=== PATIENT | male | born 1945 | race American Indian/Alaskan Native ===

== ENCOUNTER 2017-05-01 12:17 | Outpatient (CLI) | payer MEDICARE ==
--- NOTE | 2017-05-01 13:11 | Cat Scan Report ---
CT HEAD WITHOUT CONTRAST: HISTORY: Fall with head trauma. TECHNIQUE: Sequential 2.5mm CT images. COMPARISON: none. FINDINGS: Cerebral Parenchyma: Within normal limits. Cerebellum: Within normal limits. Brainstem: Within normal limits. Ventricles: Normal. Sella: Normal. Extra-axial spaces: Normal. Basal Cisterns: Normal. Intracranial Hemorrhage: None. Midline Shift: None. Calvarium: Normal. Sinuses: Normal. Mastoid Air Cells: Normal. Visualized Orbits: Normal. IMPRESSION: No acute intracranial process is identified.
== END 2017-05-01 12:18 | disposition home or self-care (01) ==
LOC: CT 12:17
PROVIDERS: ATTEND Internal Medicine Nephrology
DX: S09.90XA Unspecified injury of head, initial encounter (principal); E11.9 Type 2 diabetes mellitus without complications; I10 Essential (primary) hypertension; W19.XXXA Unspecified fall, initial encounter; Y93.89 Activity, other specified; Y92.89 Other specified places as the place of occurrence of the external cause; Y99.8 Other external cause status
CPT/HCPCS: 70450

== ENCOUNTER 2017-05-16 15:59 | Inpatient (IN) | payer MEDICARE ==
--- NOTE | 2017-05-16 19:12 | Emergency Department Report ---
Chief Complaint: Upper Respiratory Infection Stated Complaint: COLD SYMPTOMS Time Seen by Provider: 05/16/17 19:07 - HPI History of Present Illness: States he has had a cough, congestion for 3 weeks. Dialysis patient for 11 years , also a diabetic, has had fluids in his lungs in the past when asked. +Sick contacts at dialysis. Admits to subjective fever over the past three weeks. He doesn't know what medicine he was put on last week by his PMD, thinks it might have been tamiflu.Admits to vomiting as well sometimes when he coughs. Also admits to diarrhea for 3 - 4 days. Says that he has chest pain like someone is walking on it. Abdominal pain feels like it is sore. - ROS Review of Systems: As stated in HPI. - Exam Vital Signs: Vital Signs 05/16/17 16:20 Temperature 98.5 F Pulse Rate 84 Respiratory 20 Rate Blood Pressure 129/81 Blood Pressure 129/81 [Right] O2 Sat by Pulse 91 Oximetry Physical Exam: Mild distress, NCAT PERRL crackles in the bases, +systolic murmur, generalized abd tenderness +BS. MSE screening note: Focused history and physical exam performed. Due to findings the following was ordered: diabetic dialysis patient with productive cough for three weeks with crackles in the bases bilaterally and NVD. Will get CBC CMP UA CXR EKG TROP LACTIC ED Disposition for MSE Condition: Stable
[2017-05-16] MEDS ORDERED: ZOFRAN IV ONE (19:22)
[2017-05-16 20:10] LABS: Creatine Kinase MB 1.8 ng/mL (0.0-4.0)
--- NOTE | 2017-05-16 20:10 | XRay Report ---
FINAL REPORT PROCEDURE: Semi upright portable AP chest x-ray TECHNIQUE: Chest radiograph anteroposterior view. CPT 93372 HISTORY: Cough COMPARISON: No prior studies are available for comparison. FINDINGS: The heart is magnified although appears to be enlarged. Coronary artery stent appears to be visualized. Pulmonary vasculature not significantly distended. Small right pleural effusion is present with adjacent increased density in the right lower lung field suggesting atelectasis versus infiltrate. Lung haro otherwise are clear. No acute bony abnormalities are seen. IMPRESSION: Cardiomegaly. Coronary artery stent is visualized. Small right effusion with adjacent patchy alveolar density seen suggesting atelectasis or infiltrate. Clinical correlation recommended. No other abnormalities are identified..
[2017-05-16 20:11] LABS: Albumin 4.5 g/dL (3.9-5); Calcium 10.2 mg/dL (8.4-10.2); Magnesium 2.7 mg/dL (1.7-2.3)
[2017-05-16 20:24] LABS: Hematocrit 37.4 % (35.5-45.6); Hemoglobin 12.2 gm/dl (11.8-15.2); Mean Corpuscular HGB Conc 33 % (32-34); Mean Corpuscular Hemoglobin 30 pg (28-32); Mean Corpuscular Volume 91 fl (84-94); Red Blood Count 4.13 M/mm3 (3.65-5.03)
[2017-05-16 20:43] LABS: Chol/HDL Ratio 1.88 %
[2017-05-16] MEDS ORDERED: PROVENTIL IH ONE ×2 (20:53→23:57)
[2017-05-16 20:57] LABS: Platelet Count 85 K/mm3 (140-440)
[2017-05-16] MEDS ORDERED: SUBLIMAZE IV ONE (20:58)
[2017-05-16] MEDS ORDERED: LEVAQUIN 500MG/100ML 500 MG/100 ML BAG IV ONE (20:58)
[2017-05-16] MEDS ORDERED: TESSALON PERLES PO ONE (20:59)
[2017-05-16] MEDS ORDERED: BABY ASPIRIN PO ONE (21:06)
--- NOTE | 2017-05-16 21:06 | Emergency Department Report ---
HPI - General Chief Complaint: Upper Respiratory Infection Time Seen by Provider: 05/16/17 19:07 - HPI HPI: The patient is a 71-year-old male with a significant history of end-stage renal disease, who presents for evaluation of chest pain and cough. He reports to 3 weeks of a cough productive of yellow and green sputum, and associated with chest pain for the past 4-5 days, on-and-off, midsternal and pressure-like in quality, currently 5/10 in severity, exacerbated with coughing. He shares that he missed dialysis today due to presenting to the emergency department for evaluation. He also reports experiencing waxing and waning fevers and generalized myalgias for the past week. The patient denies trauma to the chest , current dyspnea, syncope, hemoptysis, unilateral leg swelling, recent immobilization, history of DVT or PE, recent cancer. ED Past Medical Hx - Past Medical History Hx Hypertension: Yes Hx Heart Attack/AMI: Yes (2000, 2005) Hx Renal Disease: Yes (dialysis MWF) - Surgical History Hx Coronary Stent: Yes - Social History Smoking Status: Never Smoker Substance Use Type: None - Medications Home Medications: Home Medications Medication Instructions Recorded Confirmed Last Taken Type Ambrisentan [Letairis] 5 mg PO DAILY 02/10/13 01/10/14 01/09/14 17:00 History 5mg FLUoxetine HCL [Prozac] 40 mg PO QDAY 02/10/13 01/10/14 01/09/14 06:00 History 40mg Furosemide [Lasix] 80 mg PO QDAY 02/10/13 01/10/14 01/09/14 06:00 History 80mg Gabapentin 300 mg PO BID 02/10/13 01/10/14 01/10/14 06:00 History 300mg Isosorbide Dinitrate [Isosorbide 30 mg PO DAILY 02/10/13 01/10/14 01/09/14 06: 00 History Dinitrate] 30mg Lisinopril/Hydrochlorothiazide 1 tab PO QDAY 02/10/13 01/10/14 01/10/14 05:30 History [Zestoretic 20-25 mg] 1 NIFEdipine [Nifedipine ER] 60 mg PO DAILY 02/10/13 01/10/14 01/09/14 17:00 History 60mg cloNIDine [Catapres] 0.1 mg PO BID 02/10/13 01/10/14 01/09/14 08:00 History 0.1mg ED Review of Systems ROS: Stated complaint: COLD SYMPTOMS Other details as noted in HPI Constitutional: denies: fever ENT: denies: throat or neck pain Respiratory: reports cough, shortness of breath Cardiovascular: denies: chest pain Endocrine: denies unexplained weight loss or gain Gastrointestinal: denies: abdominal pain, nausea Genitourinary: denies: dysuria Musculoskeletal: denies: leg swelling Skin: denies: rash Neurological: denies: headache Hematological/Lymphatic: denies: easy bleeding or easy bruising Psych: denies sadness or hopelessness Physical Exam - Physical Exam Vital Signs: Vital Signs 05/16/17 16:20 Temperature 98.5 F Pulse Rate 84 Respiratory 20 Rate Blood Pressure 129/81 Blood Pressure 129/81 [Right] O2 Sat by Pulse 91 Oximetry Physical Exam: General: well-nourished, well-developed, no acute distress Head: Normocephalic, atraumatic Eyes: normal sclera ENT: Mucous membranes are pink and moist , bilateral nasal congestion present Neck: trachea midline, neck supple, No neck stiffness, no cervical adenopathy Respiratory: Diminished breath sounds and wheezing present throughout lung haro bilaterally, mild rhonchi present to right lower lung field Cardio: S1 and S2 present, no murmurs, rubs, gallops, capillary refill is brisk Abdomen: Normoactive bowel sounds, soft abdomen, no rigidity, no guarding or rebound tenderness Chest WALL/Back: No tenderness to palpation of the chest wall, no CVA tenderness with percussion Musc: No pitting edema Skin: No rash Neuro: no facial drooping, normal speech Psych: Normal affect ED Course Vital Signs 05/16/17 16:20 Temperature 98.5 F Pulse Rate 84 Respiratory 20 Rate Blood Pressure 129/81 Blood Pressure 129/81 [Right] O2 Sat by Pulse 91 Oximetry ED Medical Decision Making - Lab Data Result diagrams: 05/16/17 19:26 05/16/17 19:26 - Medical Decision Making The patient was seen and examined by myself. The patient is placed on a youth nutritional monitor and continuous pulse ox. On initial evaluation, the patient was found to be in no distress. Evaluation orders were placed. The patient is given pain medicine for his chest pain. EKG was negative for ST elevation or depression suggestive of acute cardiac infarct. Is given an albuterol breathing treatment for treatment of his wheezing and hyperkalemia. X-ray of the chest exhibits a right lower lobe infiltrate and adjacent pleural effusion concerning for pneumonia. IV Levaquin is ordered for treatment of potential pneumonia. Lab results is a mildly elevated troponin of 0.107, elevated creatinine of 8.5, elevated potassium of 5.2, consistent with known history of end-stage renal disease. As the patient is elderly with multiple comorbidities , he will be admitted for treatment of his pneumonia, for arrangement for dialysis for definitive treatment of his hyperkalemia, and for serial cardiac enzymes and evaluation by cardiology. The on-call hospitalist service was contacted. They agreed to admit the patient for further treatment and close monitoring. The ED admit order was placed. The patient was admitted in guarded condition. Critical care attestation.: If time is entered above; I have spent that time in minutes in the direct care of this critically ill patient, excluding procedure time. ED Disposition Clinical Impression: Acute hyperkalemia, ESRD (end stage renal disease) on dialysis, Acute chest pain Pneumonia Qualifiers: Pneumonia type: due to unspecified organism Laterality: right Lung location: lower lobe of lung Qualified Code(s): J18.1 - Lobar pneumonia, unspecified organism Disposition: 09 OP ADMIT IP TO THIS HOSP Is pt being admited?: Yes Does the pt Need Aspirin: Yes Condition: Serious Instructions: Chest Pain (ED), Bacterial Pneumonia (ED) Referrals: PATRICIA ANGUIANO MD [Primary Care Provider] - 3-5 Days Time of Disposition: 20:46
[2017-05-16] MEDS ORDERED: DULCOLAX PR PRN (22:34)
[2017-05-16] MEDS ORDERED: ZOFRAN IV PRN (22:34)
[2017-05-16] MEDS ORDERED: TYLENOL PO PRN (22:34)
[2017-05-16] MEDS ORDERED: PERCOCET 5/325 PO PRN (22:34)
--- NOTE | 2017-05-16 22:45 | History and Physical Report ---
History of Present Illness Date of examination: 05/16/17 History of present illness: [id number] with a history of hypertension,ESRD, coronary artery disease comes emergency room with complaints of chest pain located in the epigastric area, intermittent in nature, described as sharp, 35 minutes, intensity 5/10, no radiation E Calos identified exacerbating or relieving factors. He admits to nausea vomiting, shortness of breath, diaphoresis. hE had a stress test 6month ago which she states was okay Review Of Systems: Constitutional: no weight loss Ears, eyes, nose, mouth and throat: no nasal congestion, no nasal discharge, no sinus pressure, blurry vision, diplopia Neck: No neck pain or rigidity. Cardiovascular: No palpitations Respiratory: No shortness of breath, cough Gastrointestinal: No abdominal pain, hematochezia Genitourinary : no dysuria, frequency , hematuria Musculoskeletal: no muscle ache Integumentary: no rash, no pruritis Neurological: no parathesias, focal weakness Endocrine: no cold or heat intolerance, no polyuria or polydipsia Hematologic/Lymphatic: no easy bruising, no easy bleeding, no gland swelling Allergic/Immunologic: no urticaria, no angioedema. PAST MEDICAL HISTORY:hypertension, esrd, coronary artery disease PAST SURGICAL HISTORY: Left BKA, AV fistula FAMILY HISTORY: Hypertension SOCIAL HISTORY: Denies alcohol, tobacco, drugs Medications and Allergies Allergies Allergy/AdvReac Type Severity Reaction Status Date / Time No Known Allergies Allergy Verified 01/10/14 06:37 Home Medications Medication Instructions Recorded Confirmed Last Taken Type Ambrisentan [Letairis] 5 mg PO DAILY 02/10/13 01/10/14 01/09/14 17:00 History 5mg FLUoxetine HCL [Prozac] 40 mg PO QDAY 02/10/13 01/10/14 01/09/14 06:00 History 40mg Furosemide [Lasix] 80 mg PO QDAY 02/10/13 01/10/14 01/09/14 06:00 History 80mg Gabapentin 300 mg PO BID 02/10/13 01/10/14 01/10/14 06:00 History 300mg Isosorbide Dinitrate [Isosorbide 30 mg PO DAILY 02/10/13 01/10/14 01/09/14 06: 00 History Dinitrate] 30mg Lisinopril/Hydrochlorothiazide 1 tab PO QDAY 02/10/13 01/10/14 01/10/14 05:30 History [Zestoretic 20-25 mg] 1 NIFEdipine [Nifedipine ER] 60 mg PO DAILY 02/10/13 01/10/14 01/09/14 17:00 History 60mg cloNIDine [Catapres] 0.1 mg PO BID 02/10/13 01/10/14 01/09/14 08:00 History 0.1mg Active Meds: Active Medications Acetaminophen (Tylenol) 650 mg PO Q4H PRN PRN Reason: Pain MILD(1-3)/Fever >100.5/GARCIA Bisacodyl (Dulcolax) 10 mg [place] QDAY PRN PRN Reason: Constipation unrelieved by MOM Ondansetron HCl (Zofran) 4 mg IV Q8H PRN PRN Reason: N/V unrelieved by Reglan Oxycodone/Acetaminophen (Percocet 5/325) 1 tab PO Q6H PRN PRN Reason: Pain, Moderate (4-6) Exam - Physical Exam Narrative exam: Gen. appearance: Patient lying in bed in no acute distress HEENT: Normocephalic/atraumatic, pupils equal round reactive to light, extra occular movement intact, no scleral icterus, no JVD or thyromegaly or nodule, neck is supple, mucous membrane moist, no erythema or exudate Heart: S1-S2, regular rate and rhythm Lungs: Clear to auscultation bilateral breathing comfortable Abdomen: Positive bowel sounds, nontender, nondistended, no organomegaly Extremities: Left BKA, no edema, cyanosis, clubbing Neuro:: Oriented 3 , cranial nerves II-12 intact, speech, motor intact Skin: No rash, nodules, warm dry - Constitutional Vitals: Temp Pulse Resp BP Pulse Ox 98.5 F 81 22 162/74 91 05/16/17 16:20 05/16/17 21:30 05/16/17 21:43 05/16/17 21:30 05/16/17 16:20 Results - Labs CBC & Chem 7: 05/16/17 19:26 05/16/17 19:26 Labs: Abnormal lab results 05/16/17 05/16/17 Range/Units 19:26 19:26 RDW 21.0 H (13.2-15.2) % Plt Count 85 L (140-440) K/mm3 Potassium 5.2 H (3.6-5.0) mmol/L Chloride 92.2 L (98-107) mmol/L BUN 38 H (9-20) mg/dL Creatinine 8.5 H (0.8-1.5) mg/dL Magnesium 2.70 H (1.7-2.3) mg/dL Alkaline Phosphatase 183 H (35-129) units/L Troponin T 0.106 H* (0.00-0.029) ng/mL Total Protein 8.7 H (6.3-8.2) g/dL HDL Cholesterol 89 H (40-59) mg/dL Lipase 12 L (13-60) units/L - Imaging and Cardiology EKG: image reviewed Chest x-ray: image reviewed Assessment and Plan Assessment Unstable angina Coronary artery disease End-stage renal disease on dialysis Hyperkalemia Possible pneumonia Thrombocytopenia Plan Admit to medicine Check cardiac enzymes, consult cardiology Consult renal for dialysis, give Kayexalate DVT prophylaxis, start Levaquin
[2017-05-17] MEDS ORDERED: APRESOLINE IV PRN (01:14)
[2017-05-17 02:02] LABS: Creatine Kinase MB 1.9 ng/mL (0.0-4.0)
[2017-05-17 05:02] LABS: Basophils % (Auto) 0.5 % (0.0-1.8); Eosinophils % (Auto) 0.5 % (0.0-4.3); Hematocrit 32.6 % (35.5-45.6); Hemoglobin 10.9 gm/dl (11.8-15.2); Lymphocytes # (Auto) 0.7 K/mm3 (1.2-5.4); Lymphocytes % (Auto) 15.1 % (13.4-35.0); Mean Corpuscular HGB Conc 33 % (32-34); Mean Corpuscular Hemoglobin 30 pg (28-32); Mean Corpuscular Volume 91 fl (84-94); Monocytes # (Auto) 0.7 K/mm3 (0.0-0.8); Monocytes % (Auto) 14.9 % (0.0-7.3); Platelet Count 78 K/mm3 (140-440); Red Blood Count 3.59 M/mm3 (3.65-5.03); Red Cell Distribution Width 21.5 % (13.2-15.2)
[2017-05-17 05:38] LABS: Calcium 9.9 mg/dL (8.4-10.2)
[2017-05-17 08:08] LABS: Creatine Kinase MB 2.5 ng/mL (0.0-4.0)
[2017-05-17] MEDS ORDERED: LEVAQUIN 250MG/50ML 250 MG/50 ML BAG IV SCH (10:00)
[2017-05-17] MEDS ORDERED: LEVAQUIN 500MG/100ML 500 MG/100 ML BAG IV SCH (10:00)
[2017-05-17] MEDS ORDERED: AMBRISENTAN 5 MG PO SCH (10:00)
--- NOTE | 2017-05-17 10:04 | Progress Note ---
Assessment and Plan Assessment and plan: 36-[id number]-sbboko with a history of hypertension,ESRD, coronary artery disease comes emergency room with complaints of chest pain and productive cough R lung pneumonia, likely due to gram positive continue abx Chest pain cardiology input appreciated, likely type 2 TN -etiology is likely pna, will continue abx, for stress test in am Coronary artery disease continue med management, on asa and statin End-stage renal disease on dialysis received kayexalate, continue HD per renal Hyperkalemia should correct with HD, fup repeat levels Thrombocytopenia chronic and stable, outpatient hematology fup History Interval history: no cp, admits to productive cough no sob, admits fatigue, no vomiting, no fevers, no focal weakness Hospitalist Physical - Constitutional Vitals: Temp Pulse Resp BP Pulse Ox 97.8 F 78 19 157/69 100 05/17/17 08:25 05/17/17 09:31 05/17/17 09:31 05/17/17 09:31 05/17/17 09:15 General appearance: Present: no acute distress - EENT Eyes: Present: PERRL ENT: hearing intact - Neck Neck: Present: supple - Respiratory Respiratory effort: normal Respiratory: right: rhonchi - Cardiovascular Rhythm: regular Heart Sounds: Present: S1 & S2 - Extremities Extremity abnormal: other (sp L BKA) - Abdominal General gastrointestinal: soft, non-tender - Integumentary Integumentary: Present: clear, warm - Psychiatric Psychiatric: appropriate mood/affect, intact judgment & insight - Neurologic Neurologic: CNII-XII intact, moves all extremities Results - Labs CBC & Chem 7: 05/17/17 04:33 05/17/17 04:33 Labs: Laboratory Last Values WBC 4.6 K/mm3 (4.5-11.0) 05/17/17 04:33 RBC 3.59 M/mm3 (3.65-5.03) L 05/17/17 04:33 Hgb 10.9 gm/dl (11.8-15.2) L 05/17/17 04:33 Hct 32.6 % (35.5-45.6) L 05/17/17 04:33 MCV 91 fl (84-94) 05/17/17 04:33 MCH 30 pg (28-32) 05/17/17 04:33 MCHC 33 % (32-34) 05/17/17 04:33 RDW 21.5 % (13.2-15.2) H 05/17/17 04:33 Plt Count 78 K/mm3 (140-440) L 05/17/17 04:33 Lymph % (Auto) 15.1 % (13.4-35.0) 05/17/17 04:33 [place] % (Auto) 14.9 % (0.0-7.3) H 05/17/17 04:33 Eos % (Auto) 0.5 % (0.0-4.3) 05/17/17 04:33 Baso % (Auto) 0.5 % (0.0-1.8) 05/17/17 04:33 Lymph # 0.7 K/mm3 (1.2-5.4) L 05/17/17 04:33 [place] # 0.7 K/mm3 (0.0-0.8) 05/17/17 04:33 Eos # 0.0 K/mm3 (0.0-0.4) 05/17/17 04:33 Baso # 0.0 K/mm3 (0.0-0.1) 05/17/17 04:33 Seg Neutrophils % 69.0 % (40.0-70.0) 05/17/17 04:33 Seg Neutrophils # 3.2 K/mm3 (1.8-7.7) 05/17/17 04:33 Sodium 141 mmol/L (137-145) 05/17/17 04:33 Potassium 4.5 mmol/L (3.6-5.0) 05/17/17 04:33 Chloride 94.7 mmol/L (98-107) L 05/17/17 04:33 Carbon Dioxide 29 mmol/L (22-30) 05/17/17 04:33 Anion Gap 22 mmol/L 05/17/17 04:33 BUN 42 mg/dL (9-20) H 05/17/17 04:33 Creatinine 8.7 mg/dL (0.8-1.5) H 05/17/17 04:33 Estimated GFR 7 ml/min 05/17/17 04:33 BUN/Creatinine Ratio 5 % 05/17/17 04:33 Glucose 59 mg/dL (75-100) L 05/17/17 04:33 Lactic Acid 1.50 mmol/L (0.7-2.0) 05/16/17 19:26 Calcium 9.9 mg/dL (8.4-10.2) 05/17/17 04:33 Phosphorus 3.10 mg/dL (2.5-4.5) 05/16/17 19:26 Magnesium 2.70 mg/dL (1.7-2.3) H 05/16/17 19:26 Total Bilirubin 0.70 mg/dL (0.1-1.2) 05/16/17 19:26 AST 33 units/L (5-40) 05/16/17 19:26 ALT 24 units/L (7-56) 05/16/17 19:26 Alkaline Phosphatase 183 units/L (35-129) H 05/16/17 19:26 Total Creatine Kinase 149 units/L (55-170) 05/17/17 07:14 CK-MB (CK-2) 2.5 ng/mL (0.0-4.0) 05/17/17 07:14 CK-MB (CK-2) Rel Index 1.6 (0-4) 05/17/17 07:14 Troponin T 0.147 ng/mL (0.00-0.029) H* 05/17/17 07:14 Total Protein 8.7 g/dL (6.3-8.2) H 05/16/17 19:26 Albumin 4.5 g/dL (3.9-5) 05/16/17 19:26 Albumin/Globulin Ratio 1.1 % 05/16/17 19:26 Triglycerides 46 mg/dL (2-149) 05/16/17 19:26 Cholesterol 168 mg/dL (50-199) 05/16/17 19:26 LDL Cholesterol Direct 70 mg/dL (50-130) 05/16/17 19:26 HDL Cholesterol 89 mg/dL (40-59) H 05/16/17 19:26 Cholesterol/HDL Ratio 1.88 % 05/16/17 19:26 Lipase 12 units/L (13-60) L 05/16/17 19:26 Influenza A (Rapid) Negative (Negative) 05/16/17 Unknown Influenza B (Rapid) Negative (Negative) 05/16/17 Unknown - Imaging and Cardiology Chest x-ray: image reviewed (R patchy infiltrate with small effusion)
[2017-05-17] MEDS: CATAPRES PO SCH ×2 (10:57→23:26)
[2017-05-17] MEDS: NEURONTIN PO SCH ×2 (10:57→23:27)
[2017-05-17] MEDS: PROzac PO SCH (10:57)
--- NOTE | 2017-05-17 11:01 | Consultation ---
History of Present Illness Consult date: 05/17/17 Requesting physician: SKYLER AVINA Consult reason: chest pain, elevated troponin History of present illness: This is a 71-year-old gentleman who follows with [facility] in [place] has known history of coronary disease with PCI in 2000 2006 peripheral vascular disease in 2014 had left BKA has hypertension diabetes cholesterol end- stage renal disease on hemodialysis medicationlookslikehehaspulmonaryhypertensionpatientstatesbeenhavingcoughingandc oldandfeverforlastseveralweeksbeingtreatedforsuspectedpneumonia. Patientcameinbecauseofchestpainworsewithdeepinspirationhassomemildnauseanovomiti ngshortnessofbreathpresentpatienthasnodiarrheanomelenanosyncope nopalpitations Past History Past Medical History: CAD (2000 and 2005), diabetes, ESRD, hypertension, hyperlipidemia, other Past Surgical History: Other (AV graft and left below-knee amputation) Social history: denies: no significant social history Medications and Allergies Allergies Allergy/AdvReac Type Severity Reaction Status Date / Time No Known Allergies Allergy Verified 01/10/14 06:37 Home Medications Medication Instructions Recorded Confirmed Last Taken Type Ambrisentan [Letairis] 5 mg PO DAILY 02/10/13 01/10/14 01/09/14 17:00 History 5mg FLUoxetine HCL [Prozac] 40 mg PO QDAY 02/10/13 01/10/14 01/09/14 06:00 History 40mg Furosemide [Lasix] 80 mg PO QDAY 02/10/13 01/10/14 01/09/14 06:00 History 80mg Gabapentin 300 mg PO BID 02/10/13 01/10/14 01/10/14 06:00 History 300mg Isosorbide Dinitrate [Isosorbide 30 mg PO DAILY 02/10/13 01/10/14 01/09/14 06: 00 History Dinitrate] 30mg Lisinopril/Hydrochlorothiazide 1 tab PO QDAY 02/10/13 01/10/14 01/10/14 05:30 History [Zestoretic 20-25 mg] 1 NIFEdipine [Nifedipine ER] 60 mg PO DAILY 02/10/13 01/10/14 01/09/14 17:00 History 60mg cloNIDine [Catapres] 0.1 mg PO BID 02/10/13 01/10/14 01/09/14 08:00 History 0.1mg Active Meds: Active Medications Acetaminophen (Tylenol) 650 mg PO Q4H PRN PRN Reason: Pain MILD(1-3)/Fever >100.5/GARCIA Bisacodyl (Dulcolax) 10 mg [place] QDAY PRN PRN Reason: Constipation unrelieved by MOM Clonidine HCl (Catapres) 0.1 mg PO BID ROBB Fluoxetine HCl (Prozac) 40 mg PO QDAY ROBB Furosemide (Lasix) 80 mg PO QDAY ROBB Gabapentin (Neurontin) 300 mg PO BID ROBB Hydralazine HCl (Apresoline) 5 mg IV Q6H PRN PRN Reason: Hypertension Levofloxacin/Dextrose (Levaquin 500mg/100ml) 500 mg in 100 mls @ 100 mls/hr IV Q48H ROBB PRN Reason: Protocol Isosorbide Dinitrate (Isordil Titradose) 30 mg PO DAILY ROBB Miscellaneous Medication (Ambrisentan [Letairis]) 5 mg PO DAILY ROBB Nifedipine (Procardia Xl) 60 mg PO QDAY ROBB Ondansetron HCl (Zofran) 4 mg IV Q8H PRN PRN Reason: N/V unrelieved by Reglan Oxycodone/Acetaminophen (Percocet 5/325) 1 tab PO Q6H PRN PRN Reason: Pain, Moderate (4-6) Review of Systems All systems: negative (hpi) Physical Examination Vital Signs Temp Pulse Resp BP Pulse Ox 98.5 F 84 20 129/81 91 05/16/17 16:20 05/16/17 16:20 05/16/17 16:20 05/16/17 16:20 05/16/17 16:20 General appearance: no acute distress, well-nourished HEENT: Positive: PERRL, Mucus Membranes Moist Neck: Positive: neck supple, trachea midline Cardiac: Positive: Reg Rate and Rhythm, S1/S2, Audible Murmur Lungs: Positive: clear to auscultation, Normal Breath Sounds Neuro: Positive: Grossly Intact Abdomen: Positive: Soft, Active Bowel Sounds. Negative: Tender, Distended Male genitourinary: Positive: normal Skin: Positive: Clear Incision: Cardiac Cath Site Musculoskeletal: No Pain, Normal Range of Motion Extremities: Present: Other (left BKA). Absent: edema Results 05/17/17 04:33 05/17/17 04:33 Cardiac Enzymes 05/16/17 05/17/17 05/17/17 Range/Units 19:26 01:27 07:14 AST 33 (5-40) units/L CK-MB (CK-2) 1.8 1.9 2.5 (0.0-4.0) ng/mL Lipids 05/16/17 Range/Units 19:26 Triglycerides 46 (2-149) mg/dL Cholesterol 168 (50-199) mg/dL HDL Cholesterol 89 H (40-59) mg/dL Cholesterol/HDL Ratio 1.88 % CBC 05/16/17 05/17/17 Range/Units 19:26 04:33 WBC 5.7 4.6 (4.5-11.0) K/mm3 RBC 4.13 3.59 L (3.65-5.03) M/mm3 Hgb 12.2 10.9 L (11.8-15.2) gm/dl Hct 37.4 32.6 L (35.5-45.6) % Plt Count 85 L 78 L (140-440) K/mm3 Lymph # [place] 0.7 L [place] # Cork Grinder 0.7 Eos # Cork Grinder 0.0 Baso # Cork Grinder 0.0 Comprehensive Metabolic Panel 05/16/17 05/17/17 Range/Units 19:26 04:33 Sodium 137 141 (137-145) mmol/L Potassium 5.2 H 4.5 (3.6-5.0) mmol/L Chloride 92.2 L 94.7 L (98-107) mmol/L Carbon Dioxide 28 29 (22-30) mmol/L BUN 38 H 42 H (9-20) mg/dL Creatinine 8.5 H 8.7 H (0.8-1.5) mg/dL Glucose 77 59 L (75-100) mg/dL Calcium 10.2 9.9 (8.4-10.2) mg/dL AST 33 (5-40) units/L ALT 24 (7-56) units/L Alkaline Phosphatase 183 H (35-129) units/L Total Protein 8.7 H (6.3-8.2) g/dL Albumin 4.5 (3.9-5) g/dL EKG interpretations - Telemetry EKG Rhythm: Sinus Rhythm (normal sinus rhythm right bundle branch block) Assessment and Plan Chest pain Non-STEMI type II Pneumonia Acute respiratory failure Hypertension Hyperlipidemia End-stage renal disease on hemodialysis Diabetes Peripheral vascular disease Coronary arterial disease Suspected pulmonary hypertension Recommend continue pneumonia treatment as per primary in view of abnormal troponin patient states has been some time since his last stress test will do a like scan time in a.m. get echocardiogram for his hypertension as patient is on letarsis had aspirin therapy and statin therapy
[2017-05-17] MEDS ORDERED: Fluarix Quad 2017-2018(36 MOS+ IM ONE (11:19)
[2017-05-17] MEDS ORDERED: LASIX PO ONE (13:01)
[2017-05-17] MEDS ORDERED: LASIX ONE (13:04)
[2017-05-17] MEDS: ISORDIL TITRADOSE PO SCH (13:09)
[2017-05-17] MEDS: PROCARDIA XL PO SCH (13:10)
[2017-05-17] MEDS: LASIX PO SCH (13:10)
[2017-05-17] MEDS: PERCOCET 5/325 PO PRN ×2 (14:20→23:36)
--- NOTE | 2017-05-17 15:10 | Consultation ---
History of Present Illness - Reason for Consult Consult date: 05/17/17 end stage renal disease Requesting physician: CHETNA NIELSEN - History of Present Illness 71-year-old male who is well known to me with a history of diabetes mellitus, hypertension, complicated by end-stage renal disease on hemodialysis on a Friday , Friday and Friday schedule. The patient developed cough about a week ago productive of yellow sputum. Associated shortness of breath, fever with chills. He had nausea and vomiting a few days ago. Patient also had chest pain which he describes as a needle sticking in the lower chest/on the left side worse on breathing and coughing with no known relieving factors. There was a associated palpitations. On account of the worsening symptoms especially shortness of breath and chest pain, Patient came to the hospital for further management. Past History Past Medical History: CAD (2000 and 2005), diabetes, ESRD, hypertension, hyperlipidemia, PVD, other Past Surgical History: Other (AV graft and left below-knee amputation, angioplasty to the left leg 2009. Percutaneous transluminal coronary angioplasty and stenting 2009. 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 denies: no significant social history, smoking, alcohol abuse, prescription drug abuse Family history: denies: CAD, hypertension, stroke Medications and Allergies Allergies Allergy/AdvReac Type Severity Reaction Status Date / Time No Known Allergies Allergy Verified 01/10/14 06:37 Home Medications Medication Instructions Recorded Confirmed Last Taken Type Ambrisentan [Letairis] 5 mg PO DAILY 02/10/13 01/10/14 01/09/14 17:00 History 5mg FLUoxetine HCL [Prozac] 40 mg PO QDAY 02/10/13 01/10/14 01/09/14 06:00 History 40mg Furosemide [Lasix] 80 mg PO QDAY 02/10/13 01/10/14 01/09/14 06:00 History 80mg Gabapentin 300 mg PO BID 02/10/13 01/10/14 01/10/14 06:00 History 300mg Isosorbide Dinitrate [Isosorbide 30 mg PO DAILY 02/10/13 01/10/14 01/09/14 06: 00 History Dinitrate] 30mg Lisinopril/Hydrochlorothiazide 1 tab PO QDAY 02/10/13 01/10/14 01/10/14 05:30 History [Zestoretic 20-25 mg] 1 NIFEdipine [Nifedipine ER] 60 mg PO DAILY 02/10/13 01/10/14 01/09/14 17:00 History 60mg cloNIDine [Catapres] 0.1 mg PO BID 02/10/13 01/10/14 01/09/14 08:00 History 0.1mg Active Meds: Active Medications Acetaminophen (Tylenol) 650 mg PO Q4H PRN PRN Reason: Pain MILD(1-3)/Fever >100.5/GARCIA Aspirin (Ecotrin) 325 mg PO QDAY [facility] Atorvastatin Calcium (Lipitor) 40 mg PO QHS [facility] Bisacodyl (Dulcolax) 10 mg NM QDAY PRN PRN Reason: Constipation unrelieved by MOM Clonidine HCl (Catapres) 0.1 mg PO BID [facility] Last Admin: 05/17/17 10:57 Dose: 0.1 mg Fluoxetine HCl (Prozac) 40 mg PO QDAY [facility] Last Admin: 05/17/17 10:57 Dose: 40 mg Furosemide (Lasix) 80 mg PO QDAY [facility] Last Admin: 05/17/17 13:10 Dose: 80 mg Gabapentin (Neurontin) 300 mg PO BID [facility] Last Admin: 05/17/17 10:57 Dose: 300 mg Hydralazine HCl (Apresoline) 5 mg IV Q6H PRN PRN Reason: Hypertension Levofloxacin/Dextrose (Levaquin 500mg/100ml) 500 mg in 100 mls @ 100 mls/hr IV Q48H [facility] PRN Reason: Protocol Isosorbide Dinitrate (Isordil Titradose) 30 mg PO DAILY [facility] Last Admin: 05/17/17 13:09 Dose: 30 mg Miscellaneous Medication (Ambrisentan [Letairis]) 5 mg PO DAILY [facility] Nifedipine (Procardia Xl) 60 mg PO QDAY [facility] Last Admin: 05/17/17 13:10 Dose: 60 mg Ondansetron HCl (Zofran) 4 mg IV Q8H PRN PRN Reason: N/V unrelieved by Reglan Oxycodone/Acetaminophen (Percocet 5/325) 2 tab PO Q6H PRN PRN Reason: Pain, Moderate (4-6) Last Admin: 05/17/17 14:20 Dose: 2 tab Review of Systems All systems: negative (Constitutional: no fever or chills. No anorexia or weight loss. HEENT: No sore throat or sinus drainage no hearing or vision impairment . Cardiovascular: No chest pain, shortness of breath, palpitations, lower extremity swelling or dizziness. Respiratory: No cough, sputum, shortness of breath, hemoptysis or wheezing. Gastrointestinal: No nausea, vomiting, diarrhea, abdominal pain, hematemesis or melena. Genitourinary: No frequency urgency dysuria or hematuria. hematologic: No abnormal bleeding or bruising. Integumentary: Admits to pruritus but no rash. Neurological: No headache no focal weakness or numbness, no syncope or seizures. Has occasional lightheadedness. Musculoskeletal: No joint pains but admits to stiffness. Psychiatry: Admits to axiety and depression) Exam - Vital Signs Vital signs: Vital Signs Temp Pulse Resp BP Pulse Ox 98.5 F 84 20 129/81 91 05/16/17 16:20 05/16/17 16:20 05/16/17 16:20 05/16/17 16:20 05/16/17 16:20 - Physical Exam Narrative exam: Middle-aged -[place]ese male lying in bed in no acute distress HEENT: NCAT, pink oral mucous membrane, numerous missing teeth Neck: Supple, no venous distention CVS: S1S2 RRR with no murmur, rub or gallop Chest: Bilateral rhonchi with diminished breath sounds Abdomen: Protuberant, soft, nontender, no organomegaly, bowel sounds are present Extremities: No edema, left below knee amputation Skin warm and dry, no rash Neuro: Awake, alert no focal deficits Results - Lab Results 05/17/17 04:33 05/17/17 04:33 Most recent lab results Calcium 9.9 mg/dL (8.4-10.2) 05/17/17 04:33 Phosphorus 3.10 mg/dL (2.5-4.5) 05/16/17 19:26 Magnesium 2.70 mg/dL (1.7-2.3) H 05/16/17 19:26 Assessment and Plan - Patient Problems (1) Acute chest pain Current Visit: Yes Status: Acute Plan to address problem: Chest pain appears to be noncardiac but given his risk factors and prior history , patient will be getting a stress test by stress engineer on Friday (2) ESRD (end stage renal disease) on dialysis Current Visit: Yes Status: Acute Plan to address problem: Hemodialysis on a Friday and Friday schedule. We'll dialyze today since he missed dialysis yesterday (3) Pneumonia Current Visit: Yes Status: Acute Qualifiers: Pneumonia type: due to unspecified organism Laterality: right Lung location: lower lobe of lung Qualified Code(s): J18.1 - Lobar pneumonia, unspecified organism Plan to address problem: Continue antibiotics, Bronchodilator nebulizer treatments and supplemental oxygen. (4) Hypertensive chronic kidney disease with stage 5 chronic kidney disease or end stage renal disease Current Visit: Yes Status: Acute Plan to address problem: Follow blood pressure on current medications (5) Anemia of chronic disease Current Visit: Yes Status: Acute Plan to address problem: Continue Erythropoetin on dialysis
[2017-05-17] MEDS ORDERED: HEPARIN 10,000 UNITS/10 ML IV PRN (15:17)
[2017-05-17] MEDS ORDERED: NACL 0.9% 100 ML IV PRN ×2 (15:17→21:56)
[2017-05-17] MEDS ORDERED: NACL 0.9 (PRIMING MACHINE ONLY DIALYSIS) MC ONE (18:58)
[2017-05-17 23:02] LABS: Hepatitis A Antibody IgM Non-Reactive (NonReactive); Hepatitis B Core IgM Non-Reactive (NonReactive); Hepatitis B Surface Antigen Non-Reactive (Negative); Hepatitis C Virus Antibody Non-Reactive (NonReactive)
[2017-05-18] MEDS: PERCOCET 5/325 PO PRN ×2 (05:54→21:35)
[2017-05-18] MEDS ORDERED: LEXISCAN IV ONE (08:04)
[2017-05-18] MEDS ORDERED: LEVAQUIN 500MG/100ML 500 MG/100 ML BAG IV SCH (10:00)
--- NOTE | 2017-05-18 11:22 | Progress Note ---
Assessment and Plan Chest pain Non-STEMI type II Pneumonia Acute respiratory failure Hypertension Hyperlipidemia End-stage renal disease on hemodialysis Diabetes Peripheral vascular disease Coronary arterial disease pulmonary hypertension Recommend continued current home medications continue treatment by the primary care team for pneumonia and acute respiratory failure patient continues to cough patient will follow cardiology as an outpatient Subjective Date of service: 05/18/17 Principal diagnosis: coughing and sob Interval history: pt states chest pain better and breathing better Objective Vital Signs Temp Pulse Resp BP BP Pulse Ox 05/18/17 09:50 63 05/18/17 06:03 98.2 F 64 20 117/57 100 05/18/17 00:59 98.3 F 65 20 117/56 100 05/17/17 22:43 98.0 F 77 16 124/60 100 05/17/17 22:00 18 05/17/17 21:40 98.1 F 68 16 120/61 05/17/17 20:15 68 120/61 05/17/17 20:00 69 131/86 05/17/17 19:45 65 122/69 05/17/17 19:30 66 127/66 05/17/17 19:15 68 136/75 05/17/17 19:00 69 142/70 05/17/17 18:45 71 151/73 05/17/17 18:30 69 142/70 05/17/17 18:15 68 145/67 05/17/17 18:00 64 114/70 05/17/17 17:45 65 121/63 05/17/17 17:30 66 122/64 05/17/17 17:15 66 121/70 05/17/17 17:00 67 138/108 05/17/17 16:50 98.3 F 77 17 116/65 100 05/17/17 16:45 98 F 63 16 160/139 05/17/17 16:20 70 16 116/65 05/17/17 16:10 77 16 116/65 05/17/17 16:00 77 17 116/65 05/17/17 15:50 76 15 123/60 05/17/17 15:42 76 14 120/64 05/17/17 15:30 77 15 120/64 05/17/17 15:26 77 18 110/61 05/17/17 15:15 77 16 122/55 05/17/17 15:07 78 16 110/61 05/17/17 15:00 79 10 L 110/61 05/17/17 14:45 14 118/58 05/17/17 14:30 80 14 118/58 05/17/17 14:20 16 05/17/17 14:15 84 18 118/57 05/17/17 14:01 79 11 L 118/54 05/17/17 13:45 117 H 15 127/59 05/17/17 13:30 83 16 135/66 05/17/17 13:15 83 17 164/78 05/17/17 13:09 84 164/78 05/17/17 13:01 86 20 153/72 05/17/17 12:45 80 15 176/63 05/17/17 12:31 80 15 147/72 05/17/17 12:15 78 18 152/71 05/17/17 12:00 79 12 152/71 05/17/17 11:45 80 14 155/70 05/17/17 11:30 79 15 155/70 - Physical Examination General: No Apparent Distress HEENT: Positive: PERRL, Mucus Membranes Moist Neck: Positive: neck supple, trachea midline Cardiac: Positive: Reg Rate and Rhythm, Audible Murmur (05/13) Lungs: Positive: clear to auscultation Neuro: Positive: Grossly Intact Abdomen: Positive: Soft, Active Bowel Sounds. Negative: Tender, Distended Skin: Positive: Clear Incision: Cardiac Cath Site Musculoskeletal: No Pain, Normal Range of Motion Extremities: Present: Other (left BKA). Absent: edema - Imaging and Cardiology EKG: image reviewed Pharmacologic stress test: report reviewed (05/18/2016 no significant ischemia mild small fixed mid anterior defect and EF 45%) Echo: report reviewed (05/18/2016 mild LV dysfunction RV is mild to moderately dilated with flattened septum with mild RV dysfunction moderate tricuspid regurgitation with moderate pulmonary hypertension RVSP of 55 mmHg) - Telemetry EKG Rhythm: Sinus Rhythm
[2017-05-18] MEDS ORDERED: Fluarix Quad 2017-2018(36 MOS+ IM ONE (12:00)
[2017-05-18] MEDS: LASIX PO SCH (12:06)
[2017-05-18] MEDS: CATAPRES PO SCH ×2 (12:06→21:34)
[2017-05-18] MEDS: ISORDIL TITRADOSE PO SCH (12:06)
[2017-05-18] MEDS: PROzac PO SCH (12:07)
[2017-05-18] MEDS: ECOTRIN PO SCH (12:07)
[2017-05-18] MEDS: PROCARDIA XL PO SCH (12:07)
[2017-05-18] MEDS: NEURONTIN PO SCH ×2 (12:07→21:34)
--- NOTE | 2017-05-18 15:17 | Progress Note ---
Assessment and Plan - Patient Problems (1) Acute chest pain Current Visit: Yes Status: Acute Plan to address problem: Chest pain appears to be noncardiac but given his risk factors and prior history , patient will be getting a stress test by yarn comber on Friday (2) ESRD (end stage renal disease) on dialysis Current Visit: Yes Status: Acute Plan to address problem: Hemodialysis on a Friday and Friday schedule. Resume regular dialysis schedule tomorrow (3) Pneumonia Current Visit: Yes Status: Acute Qualifiers: Pneumonia type: due to unspecified organism Laterality: right Lung location: lower lobe of lung Qualified Code(s): J18.1 - Lobar pneumonia, unspecified organism Plan to address problem: Continue antibiotics, Bronchodilator nebulizer treatments and supplemental oxygen. (4) Hypertensive chronic kidney disease with stage 5 chronic kidney disease or end stage renal disease Current Visit: Yes Status: Acute Plan to address problem: Follow blood pressure on current medications (5) Anemia of chronic disease Current Visit: Yes Status: Acute Plan to address problem: Continue Erythropoetin on dialysis Subjective Date of service: 05/18/17 Principal diagnosis: coughing and sob Interval history: Patient seen lying in bed. He feels a bit better. He did have an episode of hemoptysis earlier. He also had a blood clot from his nose. Patient had ventilation perfusion scan. Result is pending Objective - Exam Narrative Exam: Middle-aged -[place] male lying in bed in no acute distress HEENT: NCAT, pink oral mucous membrane, numerous missing teeth Neck: Supple, no venous distention CVS: S1S2 RRR with no murmur, rub or gallop Chest: Bilateral rhonchi with diminished breath sounds Abdomen: Protuberant, soft, nontender, no organomegaly, bowel sounds are present Extremities: No edema, left below knee amputation Skin warm and dry, no rash Neuro: Awake, alert no focal deficits - Vital Signs Vital signs: Vital Signs - 12hr 05/18/17 05/18/17 05/18/17 06:03 08:47 09:16 Temperature 98.2 F Pulse Rate 64 62 62 Respiratory 20 Rate Blood Pressure 117/57 109/67 110/68 O2 Sat by Pulse 100 Oximetry 05/18/17 05/18/17 05/18/17 09:17 09:18 09:19 Temperature Pulse Rate 65 68 66 Respiratory Rate Blood Pressure 123/65 122/67 122/67 O2 Sat by Pulse Oximetry 05/18/17 05/18/17 09:20 09:50 Temperature Pulse Rate 67 63 Respiratory Rate Blood Pressure 122/83 O2 Sat by Pulse Oximetry - Lab 05/17/17 04:33 05/17/17 04:33 Most recent lab results Calcium 9.9 mg/dL (8.4-10.2) 05/17/17 04:33 Phosphorus 3.10 mg/dL (2.5-4.5) 05/16/17 19:26 Magnesium 2.70 mg/dL (1.7-2.3) H 05/16/17 19:26
--- NOTE | 2017-05-18 15:38 | Discharge Summary ---
Providers - Providers Date of Admission: 05/16/17 22:34 Attending physician: SKYLER AVINA MD 05/16/17 22:34 Consult to Physician [CONS] Routine Consulting Provider: KATHIA VICTORIA Reason For Exam: cp Place consult to:: cardio Notified:: y If yes, spoke with:: a/s Time called:: 07:40 Comment:: DR Kirit [employer] Consult to Physician [CONS] Routine Consulting Provider: XU JOVEL Reason For Exam: hd Place consult to:: NEPHROLOGY Notified:: Y If yes, spoke with:: A/S Time called:: 08:30 Primary care physician: PATRICIA ANGUIANO Hospitalization Condition: Serious Hospital course: [id number] with a history of hypertension,ESRD, coronary artery disease comes emergency room with complaints of chest pain. He was found to have PNA for which he received abx. Given hx of CAD, he received cardiology consult, MPI was negative and medical management was recommended. He received HD for his ESRD. He had prolonged bleeding after AVG puncture which was most likely due to heaving lifting immediately after HD, he had fistulogram which was negative. He is to fup with his PCP for referal to hematology for management of chronic mild thrombocytopenia Diagnosis R lung pneumonia, likely due to gram positive Chest pain due to PNA Coronary artery disease End-stage renal disease on dialysis Hyperkalemia Thrombocytopenia Disposition: DC-01 TO HOME OR SELFCARE Time spent for discharge: 33 minutes Core Measure Documentation - Palliative Care Palliative Care/ Comfort Measures: Not Applicable - Core Measures Any of the following diagnoses?: none Exam - Constitutional Vitals: Temp Pulse Resp BP Pulse Ox 98.2 F 63 20 122/83 100 05/18/17 06:03 05/18/17 09:50 05/18/17 06:03 05/18/17 09:20 05/18/17 06:03 General appearance: Present: no acute distress, well-nourished - EENT Eyes: Present: PERRL ENT: hearing intact, clear oral mucosa - Neck Neck: Present: supple, normal ROM - Respiratory Respiratory effort: normal Respiratory: bilateral: CTA - Cardiovascular Heart Sounds: Present: S1 & S2. Absent: rub, click - Extremities Extremities: pulses symmetrical, No edema Peripheral Pulses: within normal limits - Abdominal General gastrointestinal: Present: soft, non-tender, non-distended, normal bowel sounds Male genitourinary: Present: normal - Integumentary Integumentary: Present: clear, warm, dry - Musculoskeletal Musculoskeletal: gait normal, strength equal bilaterally - Psychiatric Psychiatric: appropriate mood/affect, intact judgment & insight - Neurologic Neurologic: CNII-XII intact, moves all extremities Plan Follow up with: PATRICIA ANGUIANO MD [Primary Care Provider] - 3-5 Days Prescriptions: AtorvaSTATin [Lipitor] 40 mg PO QHS #30 tablet Aspirin [Adult Low Dose Aspirin EC] 81 mg PO DAILY #30 tablet. Levofloxacin [Levaquin TAB] 500 mg PO Q48H #2 tablet Oxycodone HCl/Acetaminophen [Percocet 10/325 mg] 1 each PO Q6HR PRN #20 tablet PRN Reason: Pain
--- NOTE | 2017-05-18 19:31 | Event Note ---
Date: 05/18/17 71 year old male with ESRD who had dialysis and then had delayed bleeding from one of his puncture sites. Controlled with pressure by dialysis technologist. Will set up fistulogram in AM. NPO after MN except meds.
[2017-05-18] MEDS: DUONEB *Not for PRN Use IH SCH ×2 (20:28→20:29)
--- NOTE | 2017-05-18 20:48 | Progress Note ---
Assessment and Plan Assessment and plan: [id number] with a history of hypertension,ESRD, coronary artery disease comes emergency room with complaints of chest pain and productive cough R lung pneumonia, likely due to gram positive continue abx Chest pain cardiology input appreciated, likely type 2 [place] -etiology is likely pna, will continue abx, stress test was neg, no further workup Coronary artery disease continue med management, on asa and statin End-stage renal disease on dialysis received kayexalate, continue HD per renal Hyperkalemia medically rx, and continue HD prolonged Bleeding from AV graft puncture -Vascular consult appreciated, for fistulogram in am, coags in am Thrombocytopenia chronic and stable, outpatient hematology fup History Interval history: no cp, admits to productive cough no sob, admits fatigue, no vomiting, no fevers, no focal weakness had prolonged bleeding from puncture at AV graft Hospitalist Physical - Physical exam Narrative exam: General appearance: Present: no acute distress, well-nourished - EENT Eyes: Present: PERRL ENT: hearing intact - Neck Neck: Present: supple - Respiratory Respiratory effort: normal Respiratory:right lung crackles - Cardiovascular Rhythm: regular Heart Sounds: Present: S1 & S2 - Extremities Extremities: no ischemia, sp L BKA Peripheral Pulses: within normal limits - Abdominal General gastrointestinal: soft, non-tender - Integumentary Integumentary: Present: clear, warm - Psychiatric Psychiatric: appropriate mood/affect, cooperative - Neurologic Neurologic: CNII-XII intact, moves all extremities - Constitutional Vitals: Temp Pulse Resp BP Pulse Ox 98.2 F 72 18 122/83 99 05/18/17 06:03 05/18/17 20:29 05/18/17 20:29 05/18/17 09:20 05/18/17 20:36 General appearance: Present: no acute distress Results - Labs CBC & Chem 7: 05/17/17 04:33 05/17/17 04:33 Labs: Laboratory Last Values WBC 4.6 K/mm3 (4.5-11.0) 05/17/17 04:33 RBC 3.59 M/mm3 (3.65-5.03) L 05/17/17 04:33 Hgb 10.9 gm/dl (11.8-15.2) L 05/17/17 04:33 Hct 32.6 % (35.5-45.6) L 05/17/17 04:33 MCV 91 fl (84-94) 05/17/17 04:33 MCH 30 pg (28-32) 05/17/17 04:33 MCHC 33 % (32-34) 05/17/17 04:33 RDW 21.5 % (13.2-15.2) H 05/17/17 04:33 Plt Count 78 K/mm3 (140-440) L 05/17/17 04:33 Lymph % (Auto) 15.1 % (13.4-35.0) 05/17/17 04:33 [place] % (Auto) 14.9 % (0.0-7.3) H 05/17/17 04:33 Eos % (Auto) 0.5 % (0.0-4.3) 05/17/17 04:33 Baso % (Auto) 0.5 % (0.0-1.8) 05/17/17 04:33 Lymph # 0.7 K/mm3 (1.2-5.4) L 05/17/17 04:33 [place] # 0.7 K/mm3 (0.0-0.8) 05/17/17 04:33 Eos # 0.0 K/mm3 (0.0-0.4) 05/17/17 04:33 Baso # 0.0 K/mm3 (0.0-0.1) 05/17/17 04:33 Seg Neutrophils % 69.0 % (40.0-70.0) 05/17/17 04:33 Seg Neutrophils # 3.2 K/mm3 (1.8-7.7) 05/17/17 04:33 Sodium 141 mmol/L (137-145) 05/17/17 04:33 Potassium 4.5 mmol/L (3.6-5.0) 05/17/17 04:33 Chloride 94.7 mmol/L (98-107) L 05/17/17 04:33 Carbon Dioxide 29 mmol/L (22-30) 05/17/17 04:33 Anion Gap 22 mmol/L 05/17/17 04:33 BUN 42 mg/dL (9-20) H 05/17/17 04:33 Creatinine 8.7 mg/dL (0.8-1.5) H 05/17/17 04:33 Estimated GFR 7 ml/min 05/17/17 04:33 BUN/Creatinine Ratio 5 % 05/17/17 04:33 Glucose 59 mg/dL (75-100) L 05/17/17 04:33 POC Glucose 127 (70-105) H 05/18/17 15:59 Lactic Acid 1.50 mmol/L (0.7-2.0) 05/16/17 19:26 Calcium 9.9 mg/dL (8.4-10.2) 05/17/17 04:33 Phosphorus 3.10 mg/dL (2.5-4.5) 05/16/17 19:26 Magnesium 2.70 mg/dL (1.7-2.3) H 05/16/17 19:26 Total Bilirubin 0.70 mg/dL (0.1-1.2) 05/16/17 19:26 AST 33 units/L (5-40) 05/16/17 19:26 ALT 24 units/L (7-56) 05/16/17 19:26 Alkaline Phosphatase 183 units/L (35-129) H 05/16/17 19:26 Total Creatine Kinase 149 units/L (55-170) 05/17/17 07:14 CK-MB (CK-2) 2.5 ng/mL (0.0-4.0) 05/17/17 07:14 CK-MB (CK-2) Rel Index 1.6 (0-4) 05/17/17 07:14 Troponin T 0.147 ng/mL (0.00-0.029) H* 05/17/17 07:14 Total Protein 8.7 g/dL (6.3-8.2) H 05/16/17 19:26 Albumin 4.5 g/dL (3.9-5) 05/16/17 19:26 Albumin/Globulin Ratio 1.1 % 05/16/17 19:26 Triglycerides 46 mg/dL (2-149) 05/16/17 19:26 Cholesterol 168 mg/dL (50-199) 05/16/17 19:26 LDL Cholesterol Direct 70 mg/dL (50-130) 05/16/17 19:26 HDL Cholesterol 89 mg/dL (40-59) H 05/16/17 19:26 Cholesterol/HDL Ratio 1.88 % 05/16/17 19:26 Lipase 12 units/L (13-60) L 05/16/17 19:26 Hepatitis A IgM Ab Non-reactive (NonReactive) 05/17/17 20:30 Hep Bs Antigen Non-reactive (Negative) 05/17/17 20:30 Hep B Core IgM Ab Non-reactive (NonReactive) 05/17/17 20:30 Hepatitis C Antibody Non-reactive (NonReactive) 05/17/17 20:30 Influenza A (Rapid) Negative (Negative) 05/16/17 Unknown Influenza B (Rapid) Negative (Negative) 05/16/17 Unknown
--- NOTE | 2017-05-18 20:58 | Treadmill Report ---
NUCLEAR STUDY REASON FOR STUDY: Abnormal troponin. READING PHYSICIAN: Luther Gonzalez MD IMAGING PROTOCOL: The patient received 10 mCi of Technetium 99m Tetrofosmin for resting image and 28 mCi of Technetium 99m Tetrofosmin for stress imaging. The imaging for the whole procedure was completed 30-90 minutes following the initial injection of Technetium 99m tetrofosmin. The SPECT imaging in the 180 degree arc was performed in the right anterior oblique projection. Computerized reconstruction of the images was performed for analysis. IMAGING RESULTS: Cavity is mildly dilated, stress and rest. Distribution of radionuclide is normal in the septal, apical, lateral, inferior region and the base of the anterior wall. There is a small mild fixed mid anterior defect. Gated SPECT, EF 43% with mild global hypokinesis. The patient infused Lexiscan with no EKG changes. SUMMARY: 1. Negative Lexiscan EKG. 2. No significant stress-induced ischemia. 3. Mild LV dysfunction, EF 43% with mild fixed mid anterior defect with normal perfusion in the inferior, septal, lateral, and apical regions and anterior apical regions. JOB# [id number] JENNA/LYNNETTE
[2017-05-19 06:10] LABS: Basophils % (Auto) 0.5 % (0.0-1.8); Eosinophils # (Auto) 0.1 K/mm3 (0.0-0.4); Eosinophils % (Auto) 2.2 % (0.0-4.3); Hematocrit 30.1 % (35.5-45.6); Hemoglobin 9.9 gm/dl (11.8-15.2); Lymphocytes # (Auto) 0.7 K/mm3 (1.2-5.4); Lymphocytes % (Auto) 18.7 % (13.4-35.0); Mean Corpuscular HGB Conc 33 % (32-34); Mean Corpuscular Hemoglobin 30 pg (28-32); Mean Corpuscular Volume 92 fl (84-94); Monocytes # (Auto) 0.5 K/mm3 (0.0-0.8); Monocytes % (Auto) 12.1 % (0.0-7.3); Platelet Count 76 K/mm3 (140-440); Red Blood Count 3.29 M/mm3 (3.65-5.03); Red Cell Distribution Width 20.9 % (13.2-15.2)
[2017-05-19 06:20] LABS: INR 1.21 (0.87-1.13); Partial Thromboplastin Time 35.6 Sec. (24.2-36.6)
[2017-05-19 06:23] LABS: Calcium 8.9 mg/dL (8.4-10.2)
[2017-05-19] MEDS: DUONEB *Not for PRN Use IH SCH ×4 (08:25→19:28)
--- NOTE | 2017-05-19 09:45 | Progress Note ---
Assessment and Plan - Patient Problems (1) Acute chest pain Current Visit: Yes Status: Acute Plan to address problem: Chest pain appears to be noncardiac (2) ESRD (end stage renal disease) on dialysis Current Visit: Yes Status: Acute Plan to address problem: Hemodialysis on a Friday and Friday schedule. For fistulogram today to exclude venous outflow stenosis. Hemodialysis today also. (3) Pneumonia Current Visit: Yes Status: Acute Qualifiers: Pneumonia type: due to unspecified organism Laterality: right Lung location: lower lobe of lung Qualified Code(s): J18.1 - Lobar pneumonia, unspecified organism Plan to address problem: Continue antibiotics, Bronchodilator nebulizer treatments and supplemental oxygen. (4) Hypertensive chronic kidney disease with stage 5 chronic kidney disease or end stage renal disease Current Visit: Yes Status: Acute Plan to address problem: Follow blood pressure on current medications (5) Anemia of chronic disease Current Visit: Yes Status: Acute Plan to address problem: Continue Erythropoetin on dialysis Subjective Date of service: 05/19/17 Principal diagnosis: coughing and sob Interval history: Patient seen lying in bed. He was about to be discharged yesterday when he developed bleeding from AV fistula. Bleeding was stopped with pressure dressing and patient is scheduled for fistulogram today. Objective - Exam Narrative Exam: Middle-aged -[place] male lying in bed in no acute distress HEENT: NCAT, pink oral mucous membrane, numerous missing teeth Neck: Supple, no venous distention CVS: S1S2 RRR with no murmur, rub or gallop Chest: Bilateral rhonchi with diminished breath sounds Abdomen: Protuberant, soft, nontender, no organomegaly, bowel sounds are present Extremities: No edema, left below knee amputation. Dressing over his AV fistula in left upper extremity Skin warm and dry, no rash Neuro: Awake, alert no focal deficits - Vital Signs Vital signs: Vital Signs - 12hr 05/19/17 05/19/17 05/19/17 01:20 05:52 08:19 Temperature 98.5 F 97.9 F Pulse Rate 67 68 72 Respiratory 20 20 18 Rate Blood Pressure 116/60 125/61 132/62 O2 Sat by Pulse 99 100 100 Oximetry - Lab 05/19/17 05:20 05/19/17 05:20 Most recent lab results Calcium 8.9 mg/dL (8.4-10.2) 05/19/17 05:20 Phosphorus 4.40 mg/dL (2.5-4.5) 05/19/17 05:20 Magnesium 2.70 mg/dL (1.7-2.3) H 05/16/17 19:26
[2017-05-19] MEDS ORDERED: LEVAQUIN PO SCH (10:00)
[2017-05-19] MEDS: PROzac PO SCH (11:22)
[2017-05-19] MEDS: PROCARDIA XL PO SCH (11:22)
[2017-05-19] MEDS: ECOTRIN PO SCH (11:23)
[2017-05-19] MEDS: NEURONTIN PO SCH ×2 (11:23→21:11)
[2017-05-19] MEDS: LASIX PO SCH (11:23)
[2017-05-19] MEDS: CATAPRES PO SCH ×2 (11:23→21:10)
[2017-05-19] MEDS: PERCOCET 5/325 PO PRN ×2 (11:36→21:09)
[2017-05-19] MEDS: ISORDIL TITRADOSE PO SCH (11:37)
[2017-05-19] MEDS ORDERED: HEPARIN 10,000 UNITS/10 ML ONE (14:10)
[2017-05-19] MEDS ORDERED: HEPARIN/NS 5000 UNIT/500ML(CATH LAB) 1,000 ML IR ONE (14:10)
[2017-05-19] MEDS ORDERED: XYLOCAINE 2% INFILTRATI ONE (14:10)
[2017-05-19] MEDS ORDERED: ANCEF/STERILE WATER 2 GM/20 ML 2 GM/20 ML SYRINGE IV ONE (14:11)
[2017-05-19] MEDS ORDERED: NACL 0.9% 250ML 250 ML ONE (14:13)
[2017-05-19] MEDS ORDERED: SUBLIMAZE ONE (14:14)
[2017-05-19] MEDS ORDERED: VERSED ONE (14:15)
--- NOTE | 2017-05-19 15:00 | Operative Report ---
Operative Report Operative Report: EXAM: LEFT UPPER EXTREMITY FISTULOGRAM CLINICAL INDICATION: PATIENT WITH BLEEDING FOLLOWING DIALYSIS. PATIENT STATES THAT HE PICKED UP HIS 48 POUND GRANDSON WHICH CAUSED BLEEDING FROM HIS DIALYSIS ACCESS SITE. DATE: 05/19/2017 PROCEDURE: Following an explanation of the risks, benefits and alternatives; written informed consent was obtained. The patient was brought to the anterior graphic suite and placed in supine position on the examination table. Initial evaluation of the graft demonstrates a palpable thrill throughout its course. The patient's left upper arm was prepped and draped in the usual sterile fashion. 1% lidocaine was used for anesthesia. The graft was cannulated under ultrasound guidance using a 7 cm 21-gauge needle. A 0.018 guidewire was advanced centrally. The needle was removed and a micro-sheath placed. The 0.018 guidewire was exchanged for a 0.035 guidewire and the micro-sheath exchanged for a 6 Serbian vascular sheath. Contrast was injected through the sheath and imaging obtained at multiple locations. There is no evidence of extravasation of contrast from the graft. At the site of the slow [place], there is an irregularity within the graft which may result represent residual needle track. No stenosis is identified involving the graft lower outflow veins. A minimal amount of centrals narrowing is present however is not hemodynamically significant. At this point, suture was applied to the cannulation site and bleeding stopped. Suture was also applied to the sheath site and the sheath removed intact. Additional Dermabond was then applied to both sites. The patient tolerated the procedure well. There were no immediate post procedure complications. Conscious sedation was initiated at 1440 conscious sedation was terminated at 1453 continuous cardio pulmonary monitoring was utilized. IMPRESSION: 1) Left upper extremity fistulogram demonstrating no significant stenosis. The patient's prolonged bleeding is likely secondary to lifting heavy objects immediately following dialysis.
[2017-05-19] MEDS: COLACE PO SCH (21:11)
[2017-05-20] MEDS: PERCOCET 5/325 PO PRN (05:34)
[2017-05-20] MEDS ORDERED: NACL 0.9% 100 ML IV PRN (08:51)
--- NOTE | 2017-05-20 08:54 | Progress Note ---
Assessment and Plan - Patient Problems (1) Acute chest pain Current Visit: Yes Status: Acute Plan to address problem: Chest pain appears to be noncardiac (2) ESRD (end stage renal disease) on dialysis Current Visit: Yes Status: Acute Plan to address problem: Hemodialysis on a Friday and Friday schedule. Bleeding was due to patient lifting his 45 pounds grand child. Patient has been instructed to avoid lifting any objects more than 10 pounds with that arm. Hemodialysis today and then discharge thereafter. (3) Pneumonia Current Visit: Yes Status: Acute Qualifiers: Pneumonia type: due to unspecified organism Laterality: right Lung location: lower lobe of lung Qualified Code(s): J18.1 - Lobar pneumonia, unspecified organism Plan to address problem: Continue antibiotics, Bronchodilator nebulizer treatments and supplemental oxygen. (4) Hypertensive chronic kidney disease with stage 5 chronic kidney disease or end stage renal disease Current Visit: Yes Status: Acute Plan to address problem: Follow blood pressure on current medications (5) Anemia of chronic disease Current Visit: Yes Status: Acute Plan to address problem: Continue Erythropoetin on dialysis Subjective Date of service: 05/20/17 Principal diagnosis: coughing and sob Interval history: Patient seen lying in bed. He was about to be discharged 2 days ago when he developed bleeding from AV fistula. Bleeding was stopped with pressure dressing and patient had a fistulogram yesterday which showed no venous outflow stenosis. Bleeding was due to patient lifting his 45 pounds grand child. Patient has been instructed to avoid lifting any objects more than 10 pounds with that arm. Objective - Exam Narrative Exam: Middle-aged -[place] male lying in bed in no acute distress HEENT: NCAT, pink oral mucous membrane, numerous missing teeth Neck: Supple, no venous distention CVS: S1S2 RRR with no murmur, rub or gallop Chest: Bilateral rhonchi with diminished breath sounds Abdomen: Protuberant, soft, nontender, no organomegaly, bowel sounds are present Extremities: No edema, left below knee amputation. Dressing over his AV fistula in left upper extremity Skin warm and dry, no rash Neuro: Awake, alert no focal deficits - Vital Signs Vital signs: Vital Signs - 12hr 05/20/17 05/20/17 00:51 05:32 Temperature 98.1 F 97.5 F L Pulse Rate 86 77 Respiratory 20 20 Rate Blood Pressure 114/77 124/62 O2 Sat by Pulse 96 98 Oximetry - Lab 05/19/17 05:20 05/19/17 05:20 Most recent lab results Calcium 8.9 mg/dL (8.4-10.2) 05/19/17 05:20 Phosphorus 4.40 mg/dL (2.5-4.5) 05/19/17 05:20 Magnesium 2.70 mg/dL (1.7-2.3) H 05/16/17 19:26
[2017-05-20] MEDS: PROzac PO SCH (09:21)
[2017-05-20] MEDS: NEURONTIN PO SCH (09:22)
[2017-05-20] MEDS: ECOTRIN PO SCH (09:22)
[2017-05-20] MEDS: COLACE PO SCH (09:22)
[2017-05-20] MEDS: DUONEB *Not for PRN Use IH SCH ×5 (10:17→19:41)
[2017-05-20] MEDS ORDERED: NACL 0.9 (PRIMING MACHINE ONLY DIALYSIS) MC ONE (10:49)
[2017-05-20 17:56] VITALS: BP 134/66
== END 2017-05-20 17:30 | disposition home or self-care (01) | DRG 193 ==
LOC: ED 15:59 → 4A 22:34
PROVIDERS: ADMIT Internal Medicine; ATTEND Internal Medicine
PROC: 5A1D70Z Performance of Urinary Filtration, Intermittent, Less than 6 Hours Per Day (ICD-10-PCS; principal; 2017-05-17)
PROC: B51W1ZZ Fluoroscopy of Dialysis Shunt/Fistula using Low Osmolar Contrast (ICD-10-PCS; 2017-05-19)
PROC: 5A1D70Z Performance of Urinary Filtration, Intermittent, Less than 6 Hours Per Day (ICD-10-PCS; 2017-05-20)
DX: J15.9 Unspecified bacterial pneumonia (principal); N18.6 End stage renal disease; I21.A1 Myocardial infarction type 2; J96.00 Acute respiratory failure, unspecified whether with hypoxia or hypercapnia; I25.110 Atherosclerotic heart disease of native coronary artery with unstable angina pectoris; I12.0 Hypertensive chronic kidney disease with stage 5 chronic kidney disease or end stage renal disease; T82.838A Hemorrhage due to vascular prosthetic devices, implants and grafts, initial encounter; E87.5 Hyperkalemia; E11.22 Type 2 diabetes mellitus with diabetic chronic kidney disease; I25.2 Old myocardial infarction; E11.51 Type 2 diabetes mellitus with diabetic peripheral angiopathy without gangrene; D63.8 Anemia in other chronic diseases classified elsewhere; D69.59 Other secondary thrombocytopenia; Y92.89 Other specified places as the place of occurrence of the external cause; Z99.2 Dependence on renal dialysis; Z95.5 Presence of coronary angioplasty implant and graft; Z89.512 Acquired absence of left leg below knee
CPT/HCPCS: 36415; 36901; 71045; 78452; 80048; 80053; 80061; 80074; 82140; 82550; 82553; 82962; 83690; 83735; 84100; 84484; 85025; 85610; 85730; 87400; 90686; 93005; 93010; 93017; 93306; 94640; 94760; 96374; 96375; A9270-GY; A9502; C1769; C1894; J0690; J1644; J1956; J2250; J2405; J2785; J3010; J7030; J7050; Q9967

== ENCOUNTER 2017-06-08 15:42 | Emergency (ER) | payer MEDICARE ==
--- NOTE | 2017-06-08 17:28 | Emergency Department Report ---
HPI - General Chief Complaint: Extremity Problem,Nontraumatic Time Seen by Provider: 06/08/17 16:52 - HPI HPI: 71-year-old male presents to the emergency department by EMS from home after he had some spontaneous bleeding from his left upper extremity AV fistula that started around 3 PM while he was taking a shower. He denies any trauma to the area or hitting his arm or anything. He denies ever having a problem with this previously. He says he has had this fistula for about 11 years. He has end-stage renal disease on hemodialysis on Friday/Friday/ Friday, asthma, diabetes, coronary disease and hypertension. His assistance representative is Dr. Mason and he sees Dr. Johnson for vascular surgery. EMS placed the fistula and a pressure dressing which appeared to control the bleeding. He denies any pain, shortness of breath, nausea, vomiting, fever. ED Past Medical Hx - Past Medical History Hx Hypertension: Yes Hx Heart Attack/AMI: Yes Hx Diabetes: Yes Hx Renal Disease: Yes (HD MWF) Hx Arthritis: Yes Hx Asthma: Yes - Surgical History Hx Coronary Stent: Yes - Social History Smoking Status: Former Smoker Substance Use Type: None - Medications Home Medications: Home Medications Medication Instructions Recorded Confirmed Last Taken Type Ambrisentan [Letairis] 5 mg PO DAILY 02/10/13 05/23/17 05/22/17 09:00 History 5mg FLUoxetine HCL [PROzac] 40 mg PO QDAY 02/10/13 05/23/17 05/22/17 History 40mg Furosemide [Lasix TAB] 80 mg PO QDAY 02/10/13 05/23/17 05/22/17 History 80mg Gabapentin 300 mg PO BID 02/10/13 05/23/17 1 Day Ago History ~05/22/17 300mg Isosorbide Dinitrate 30 mg PO DAILY 02/10/13 05/23/17 1 Day Ago History ~05/22/17 30mg Lisinopril/Hydrochlorothiazide 1 tab PO QDAY 02/10/13 05/23/17 1 Day Ago History [Zestoretic 20-25 mg] ~05/22/17 1 tab NIFEdipine [NIFEdipine ER] 60 mg PO DAILY 02/10/13 05/23/17 1 Day Ago History ~05/22/17 60 cloNIDine [Catapres] 0.1 mg PO BID 02/10/13 05/23/17 1 Day Ago History ~05/22/17 0.1 Aspirin [Adult Low Dose Aspirin EC] 81 mg PO DAILY #30 tablet. 05/18/1705/22/17 09:00 Rx 81mg AtorvaSTATin [Lipitor] 40 mg PO QHS #30 tablet 05/18/17 05/23/17 05/22/17 Rx 40mg Oxycodone HCl/Acetaminophen 1 each PO Q6HR PRN #20 tablet 05/18/17 05/23/17 1 Day Ago Rx [Percocet 10/325 mg] ~05/22/17 ED Review of Systems ROS: Stated complaint: UNCONTROL BLEEDING Other details as noted in HPI Comment: All other systems reviewed and negative Constitutional: denies: chills, fever Eyes: denies: eye pain, eye discharge, vision change ENT: denies: ear pain, throat pain Respiratory: denies: cough, shortness of breath, wheezing Cardiovascular: denies: chest pain, palpitations Gastrointestinal: denies: abdominal pain, nausea, diarrhea Genitourinary: denies: urgency, dysuria Musculoskeletal: denies: back pain, joint swelling, arthralgia Skin: denies: rash, lesions Neurological: denies: headache, weakness, paresthesias Physical Exam - Physical Exam Vital Signs: Vital Signs 06/08/17 16:10 Temperature 98.4 F Pulse Rate 70 Respiratory 18 Rate Blood Pressure 151/63 O2 Sat by Pulse 100 Oximetry Physical Exam: GENERAL: The patient is well-developed well-nourished. HENT: Normocephalic. Atraumatic. Patient has moist mucous membranes. EYES: Extraocular motions are intact. NECK: Supple. Trachea is midline. CHEST/LUNGS: Clear to auscultation. There is no respiratory distress noted. HEART/CARDIOVASCULAR: Regular. There is no tachycardia. There is no murmur. ABDOMEN: Abdomen is soft, nontender. Patient has normal bowel sounds. There is no abdominal distention. SKIN: Skin is warm and dry. NEURO: The patient is awake, alert, and oriented. The patient is cooperative. The patient has no focal neurologic deficits. The patient has normal speech and gait. MUSCULOSKELETAL: There is no tenderness or deformity. There is no limitation range of motion. There appears to be a patent left upper extremity dialysis fistula. There is a very small area to the mid to distal portion where there is a scab consistent with his previous fistula bleed but no current bruising or spurting of blood. ED Course Vital Signs 06/08/17 16:10 Temperature 98.4 F Pulse Rate 70 Respiratory 18 Rate Blood Pressure 151/63 O2 Sat by Pulse 100 Oximetry - Consultations Consultation #1: 06/08/17 21:[address] Hatfield, director of consumer affairs for Dr. Mason, who says the patient can follow up tomorrow at the dialysis clinic where they will evaluate the fistula before attempting dialysis. ED Medical Decision Making - Lab Data Result diagrams: 06/08/17 17:39 06/08/17 17:39 - Medical Decision Making The patient's fistula bleeding stopped with a pressure dressing prior to presentation. I looked at it when he first got here and it appeared as if it was going to start having some oozing so it was once again covered up with a pressure dressing. He had labs that showed hemoglobin of about 8.5 which is about consistent with his previous visits and also consistent with his anemia of chronic kidney disease. The patient was in the emergency department for almost 3.5 hours and the fistula was once again checked, appeared patent, and was not having any signs of bleeding without pressure dressing. Another dressing was placed and the patient will keep this on overnight and will follow up in the morning for his normal dialysis appointment. He will return to the ER with any return of the bleeding or any acute distress. Critical Care Time: No Critical care attestation.: If time is entered above; I have spent that time in minutes in the direct care of this critically ill patient, excluding procedure time. ED Disposition Clinical Impression: Hemorrhage of arteriovenous fistula Qualifiers: Encounter type: initial encounter Qualified Code(s): T82.838A - Hemorrhage due to vascular prosthetic devices, implants and grafts, initial encounter Disposition: DC-01 TO HOME OR SELFCARE Is pt being admited?: No Condition: Stable Additional Instructions: Please follow up tomorrow for your normal dialysis regiment and they will evaluate your dialysis fistula at that time. I would keep the pressure dressing on until that time but make sure it is not too tight around your arm to the point where it is causing you discomfort or cutting off your circulation. Return to the emergency Department with any worsening of your symptoms or any acute distress. Referrals: PRIMARY CARE, [Primary Care Provider] - [facility] Time of Disposition: 19:16
[2017-06-08 18:02] LABS: Hemoglobin 9.2 gm/dl (11.8-15.2); Mean Corpuscular HGB Conc 33 % (32-34); Mean Corpuscular Hemoglobin 30 pg (28-32); Mean Corpuscular Volume 92 fl (84-94); Platelet Count 146 K/mm3 (140-440); Red Blood Count 3.06 M/mm3 (3.65-5.03); Red Cell Distribution Width 19.8 % (13.2-15.2)
[2017-06-08 18:04] LABS: INR 1.17 (0.87-1.13)
[2017-06-08 18:05] LABS: Partial Thromboplastin Time 33.2 Sec. (24.2-36.6)
[2017-06-08 18:29] LABS: Basophils % (Manual) 0 % (0.0-1.8); Total Cells Counted 100
[2017-06-08 18:30] LABS: Platelet Estimate Consistent w Auto
[2017-06-08 18:31] LABS: Anisocytosis 1+; Target Cells 2+
[2017-06-08 18:38] LABS: Calcium 8.5 mg/dL (8.4-10.2)
[2017-06-08 20:02] VITALS: BP 148/63
== END 2017-06-08 19:28 | disposition home or self-care (01) ==
LOC: ED 15:42
DX: T82.838A Hemorrhage due to vascular prosthetic devices, implants and grafts, initial encounter (principal); I25.2 Old myocardial infarction; I10 Essential (primary) hypertension; E11.9 Type 2 diabetes mellitus without complications; M19.90 Unspecified osteoarthritis, unspecified site; J45.909 Unspecified asthma, uncomplicated; Z87.891 Personal history of nicotine dependence; Y83.8 Other surgical procedures as the cause of abnormal reaction of the patient, or of later complication, without mention of misadventure at the time of the procedure; Y92.89 Other specified places as the place of occurrence of the external cause; Y82.8 Other medical devices associated with adverse incidents
CPT/HCPCS: 36415; 80048; 85007; 85025; 85610; 85730; 99283

== ENCOUNTER 2017-07-28 11:14 | Inpatient (IN) | payer MEDICARE ==
[2017-07-28] MEDS ORDERED: ASPIRIN PO ONE (11:48)
--- NOTE | 2017-07-28 11:49 | Emergency Department Report ---
ED Chest Pain HPI - General Chief Complaint: Chest Pain Stated Complaint: CHEST PAIN Time Seen by Provider: 07/28/17 11:46 Source: EMS Mode of arrival: Stretcher Limitations: No Limitations - History of Present Illness Initial Comments: Pt is a 72 yo male who presents with chest pain at 6am. pt states the pain started when he was on his way to dialysis. Pt states the pain is ss of a 10/10 severity. Pt states he was given sl Nitro in dialysis and one by EMS. pt states he is still having pain. Pt states he felt lightheaded. Pt states he completed his dialysis and usually gets 1.5 liters taken off but this time had 4 liters off. Pt has a right chest subclavian access for dialysis. Pt states he also felt sob. Complaint: chest pain - Related Data Home Medications Medication Instructions Recorded Confirmed Last Taken Ambrisentan [Letairis] 5 mg PO DAILY 02/10/13 06/18/17 05/22/17 09:00 5mg Furosemide [Lasix TAB] 80 mg PO QDAY 02/10/13 06/18/17 05/22/17 80mg Previous Rx's Medication Instructions Recorded Last Taken Type Aspirin [Adult Low Dose Aspirin EC] 81 mg PO DAILY #30 tablet. 05/18/17 09:00 Rx 81mg AtorvaSTATin [Lipitor] 40 mg PO QHS #30 tablet 06/21/17 Unknown Rx FLUoxetine [PROzac] 40 mg PO QDAY #30 capsule 06/21/17 Unknown Rx Gabapentin [Neurontin] 300 mg PO BID #60 capsule 06/21/17 Unknown Rx ISOSORBIDE MONOnitrate [Imdur ER] 30 mg PO DAILY #30 tablet 06/21/17 Unknown Rx cloNIDine [Catapres] 0.1 mg PO BID #60 tablet 06/21/17 Unknown Rx oxyCODONE /ACETAMINOPHEN [Percocet 1 tab PO Q4H PRN #12 tablet 06/21/17 Unknown Rx 5/325 mg] Allergies Allergy/AdvReac Type Severity Reaction Status Date / Time No Known Allergies Allergy Verified 01/10/14 06:37 ED Review of Systems ROS: Stated complaint: CHEST PAIN Other details as noted in HPI Constitutional: denies: diaphoresis Eyes: denies: eye discharge ENT: denies: throat pain Respiratory: shortness of breath Cardiovascular: chest pain Musculoskeletal: denies: joint swelling Skin: denies: rash Psychiatric: denies: suicidal thoughts ED Past Medical Hx - Past Medical History Previous Medical History?: No Hx Hypertension: Yes Hx Heart Attack/AMI: Yes Hx Congestive Heart Failure: No Hx Diabetes: Yes Hx Renal Disease: Yes (HD MWF) Hx Arthritis: Yes Hx Asthma: Yes Hx COPD: No - Surgical History Hx Coronary Stent: Yes - Social History Smoking Status: Unknown if ever smoked Substance Use Type: None - Medications Home Medications: Home Medications Medication Instructions Recorded Confirmed Last Taken Type Ambrisentan [Letairis] 5 mg PO DAILY 02/10/13 06/18/17 05/22/17 09:00 History 5mg Furosemide [Lasix TAB] 80 mg PO QDAY 02/10/13 06/18/17 05/22/17 History 80mg Aspirin [Adult Low Dose Aspirin EC] 81 mg PO DAILY #30 tablet. 05/18/1705/22/17 09:00 Rx 81mg AtorvaSTATin [Lipitor] 40 mg PO QHS #30 tablet 06/21/17 Unknown Rx FLUoxetine [PROzac] 40 mg PO QDAY #30 capsule 06/21/17 Unknown Rx Gabapentin [Neurontin] 300 mg PO BID #60 capsule 06/21/17 Unknown Rx ISOSORBIDE MONOnitrate [Imdur ER] 30 mg PO DAILY #30 tablet 06/21/17 Unknown Rx cloNIDine [Catapres] 0.1 mg PO BID #60 tablet 06/21/17 Unknown Rx oxyCODONE /ACETAMINOPHEN [Percocet 1 tab PO Q4H PRN #12 tablet 06/21/17 Unknown Rx 5/325 mg] ED Physical Exam - General Limitations: No Limitations General appearance: alert, in no apparent distress - Head Head exam: Present: atraumatic - Eye Eye exam: Present: normal appearance - ENT ENT exam: Present: normal exam - Neck Neck exam: Present: normal inspection - Respiratory Respiratory exam: Present: normal lung sounds bilaterally - GI/Abdominal GI/Abdominal exam: Present: soft, normal bowel sounds. Absent: distended, tenderness, guarding, rebound - Extremities Exam Extremities exam: Present: other (left lower ext prosthesis; right dp pulse 1+) ED Course Vital Signs 07/28/17 07/28/17 12:39 12:41 Temperature 98.6 F Pulse Rate 72 Respiratory 16 16 Rate Blood Pressure 110/68 [Left] O2 Sat by Pulse 95 95 Oximetry ED Medical Decision Making - Lab Data Result diagrams: 07/28/17 11:59 07/28/17 12:04 - EKG Data -: EKG Interpreted by Me EKG shows normal: sinus rhythm (70) Rate: normal - EKG Data Interpretation: other 07/28/17 13:37 nsr rate 71; 1st degree av block; no significant acute changes from 06/18/17; no comment of first degree AV block from 06/18 EKG Critical care attestation.: If time is entered above; I have spent that time in minutes in the direct care of this critically ill patient, excluding procedure time. ED Disposition Clinical Impression: Acute chest pain, Elevated troponin Disposition: OP ADMIT IP TO THIS HOSP Is pt being admited?: Yes Does the pt Need Aspirin: No Condition: Stable Instructions: Chest Pain (ED) Referrals: PRIMARY CARE, [Primary Care Provider] - 3-5 Days Time of Disposition: 13:24
[2017-07-28] MEDS ORDERED: MORPHINE IV ONE (11:59)
[2017-07-28] MEDS ORDERED: ZOFRAN IV ONE (12:00)
[2017-07-28 12:37] LABS: Basophils % (Auto) 0.9 % (0.0-1.8); Eosinophils # (Auto) 0.1 K/mm3 (0.0-0.4); Eosinophils % (Auto) 2.1 % (0.0-4.3); Hematocrit 27.1 % (35.5-45.6); Hemoglobin 8.7 gm/dl (11.8-15.2); Lymphocytes # (Auto) 0.6 K/mm3 (1.2-5.4); Lymphocytes % (Auto) 13.3 % (13.4-35.0); Mean Corpuscular HGB Conc 32 % (32-34); Mean Corpuscular Hemoglobin 30 pg (28-32); Mean Corpuscular Volume 94 fl (84-94); Monocytes # (Auto) 0.6 K/mm3 (0.0-0.8); Platelet Count 155 K/mm3 (140-440); Red Blood Count 2.88 M/mm3 (3.65-5.03); Red Cell Distribution Width 18.5 % (13.2-15.2)
[2017-07-28 12:48] LABS: Calcium 9.6 mg/dL (8.4-10.2)
--- NOTE | 2017-07-28 13:34 | History and Physical Report ---
History of Present Illness Chief complaint: My chest is hurting History of present illness: 72 YO Male with HTN, CAD S/P Stent Placement, ND, DM, ESRD on HD(M,W,F), Positive Family history of CAD presents to ED for evaluation. Pt states that he has experienced pain in his chest all day. Pt states that pain began this morning, but he went to dialysis. Pt underwent dialysis and was experiencing worsening pain. Pt states that pain was 10/10, substernal, nonradiating, constant, severe, crushing in nature, associated with shortness of breath and diaphoresis. Pain worsened with exertion and relieved with rest. Pt denies fever , chills, palpitations, NVD, Syncope, BRBPR, calf swelling, hemoptysis, skin rash, BRBPR, unintentional weight loss, night sweats, productive cough, or recent ill contacts. Pt seen and evaluated in ED and found to have symptoms of ACS as well as CHF. Pt initiated on heparin drip in ED. Cardiology consulted in ED. Past History Past Medical History: CAD, diabetes, ESRD, heart failure, hypertension, other Past Surgical History: Other (AV fistula, Left BKA, Cardiac cath, Glaucoma eye surgery) Social history: , lives with family. denies: smoking, alcohol abuse, prescription drug abuse Family history: CAD, diabetes, hypertension Medications and Allergies Allergies Allergy/AdvReac Type Severity Reaction Status Date / Time No Known Allergies Allergy Verified 01/10/14 06:37 Home Medications Medication Instructions Recorded Confirmed Last Taken Type Furosemide [Lasix TAB] 80 mg PO QDAY 02/10/13 07/28/17 07/27/17 History Aspirin [Adult Low Dose Aspirin EC] 81 mg PO DAILY #30 tablet. 05/18/1707/27/17 Rx AtorvaSTATin [Lipitor] 40 mg PO QHS #30 tablet 06/21/17 07/28/17 07/27/17 Rx FLUoxetine [PROzac] 40 mg PO QDAY #30 capsule 06/21/17 07/28/17 07/27/17 Rx Gabapentin [Neurontin] 300 mg PO BID #60 capsule 06/21/17 07/28/17 07/27/17 Rx ISOSORBIDE MONOnitrate [Imdur ER] 30 mg PO DAILY #30 tablet 06/21/17 07/28/17 Rx cloNIDine [Catapres] 0.1 mg PO BID #60 tablet 06/21/17 07/28/17 07/27/17 Rx Review of Systems Constitutional: no weight loss, no weight gain, no fever, no chills, no sweats Ears, nose, mouth and throat: no ear pain, no ear discharge, no tinnitis, no decreased hearing, no nose pain, no nasal congestion Cardiovascular: chest pain, shortness of breath, no orthopnea, no palpitations, no paroxysmal nocturnal dyspnea Gastrointestinal: no nausea, no vomiting, no diarrhea, no constipation, no change in bowel habits, no hematemesis, no coffee ground emesis Genitourinary Male: no hematuria, no flank pain, no discharge, no urinary frequency, no urinary hesitancy Rectal: no pain, no incontinence, no bleeding Musculoskeletal: no neck stiffness, no neck pain, no shooting arm pain, no arm numbness/tingling, no low back pain, no shooting leg pain, no leg numbness/ tingling Integumentary: no rash, no pruritis, no redness, no sores, no wounds Neurological: no transient paralysis, no paralysis, no weakness, no parathesias , no numbness, no tingling, no seizures Psychiatric: no anxiety, no memory loss, no change in sleep habits, no sleep disturbances, no insomnia, no hypersomnia, no change in appetite, no change in libido Endocrine: no cold intolerance, no heat intolerance, no polyphagia, no excessive thirst, no polydipsia, no polyuria, no nocturia, no excessive sweating Hematologic/Lymphatic: no easy bruising, no easy bleeding Allergic/Immunologic: no urticaria, no allergic rhinitis, no wheezing Exam - Constitutional Vitals: Temp Pulse Resp BP Pulse Ox 98.6 F 72 16 110/68 95 07/28/17 12:41 07/28/17 12:41 07/28/17 12:41 07/28/17 12:41 07/28/17 12:41 General appearance: Present: mild distress - EENT Eyes: Present: PERRL ENT: hearing intact, clear oral mucosa - Neck Neck: Present: supple, normal ROM - Respiratory Respiratory effort: normal Respiratory: bilateral: CTA - Cardiovascular Heart Sounds: Present: S1 & S2. Absent: rub, click - Extremities Extremities: pulses symmetrical, No edema Peripheral Pulses: within normal limits - Abdominal General gastrointestinal: Present: soft, non-tender, non-distended, normal bowel sounds Male genitourinary: Present: normal - Integumentary Integumentary: Present: clear, warm, dry - Musculoskeletal Musculoskeletal: gait normal, strength equal bilaterally - Psychiatric Psychiatric: appropriate mood/affect, intact judgment & insight - Neurologic Neurologic: CNII-XII intact, moves all extremities Results - Labs CBC & Chem 7: 07/28/17 11:59 07/28/17 12:04 Labs: Abnormal lab results 07/28/17 07/28/17 Range/Units 11:59 12:04 RBC 2.88 L (3.65-5.03) M/mm3 Hgb 8.7 L (11.8-15.2) gm/dl Hct 27.1 L (35.5-45.6) % RDW 18.5 H (13.2-15.2) % Lymph % (Auto) 13.3 L (13.4-35.0) % Faulk % (Auto) 12.0 H (0.0-7.3) % Lymph # 0.6 L (1.2-5.4) K/mm3 Seg Neutrophils % 71.7 H (40.0-70.0) % Chloride 96.3 L (98-107) mmol/L Carbon Dioxide 32 H (22-30) mmol/L Creatinine 4.3 H (0.8-1.5) mg/dL Alkaline Phosphatase 164 H (35-129) units/L Troponin T 0.112 H* (0.00-0.029) ng/mL Assessment and Plan - Patient Problems (1) ACS (acute coronary syndrome) Current Visit: Yes Status: Acute Plan to address problem: Admit to telemetry, Serial cardiac enzymes, EKG, Heparin Drip, Cardiology consulted, Morphine, supplemental oxygen, nitro tabs, aspirin, (2) CHF (congestive heart failure) Current Visit: Yes Status: Acute Qualifiers: Heart failure type: diastolic Heart failure chronicity: acute Qualified Code(s): I50.31 - Acute diastolic (congestive) heart failure Plan to address problem: CHF Protocol: diuresis, monitor uop q shift, afterload reduction, cardiology consulted in ED, strict I/O, daily weight. (3) ESRD (end stage renal disease) Current Visit: Yes Status: Acute Plan to address problem: Nephrology consulted, dialysis as per renal team, monitor uop q shift, avoid nephrotoxic agents. (4) Angina at rest Current Visit: Yes Status: Acute Plan to address problem: Heparin drip, serial cardiac enzymes, morphine, supportive care (5) DVT prophylaxis Current Visit: Yes Status: Acute Plan to address problem: SCD to ble while in bed.
[2017-07-28] MEDS ORDERED: ZOFRAN IV PRN (13:35)
[2017-07-28] MEDS ORDERED: BABY ASPIRIN PO STA (13:35)
[2017-07-28] MEDS ORDERED: NITROSTAT SL PRN (13:35)
[2017-07-28] MEDS ORDERED: TYLENOL PO PRN (13:35)
[2017-07-28] MEDS ORDERED: PROVENTIL IH PRN (13:35)
[2017-07-28] MEDS ORDERED: SODIUM CHLORIDE FLUSH SYRINGE 10 ML IV PRN ×2 (13:35)
[2017-07-28] MEDS ORDERED: HEPARIN 10,000 UNITS/10 ML IV ONE (13:57)
[2017-07-28] MEDS ORDERED: HEPARIN/ 0.45% NACL-25,000 UNIT/500 ML 25,000 UNITS/500 ML BAG IV SCH (14:00)
--- NOTE | 2017-07-28 14:04 | XRay Report ---
ROUTINE CHEST, TWO VIEWS: HISTORY: chest pain. A right IJ venous catheter has been inserted since 06/18/17. A moderate right pleural effusion compresses the right lung base. The right upper lung and left lung are clear. Heart size and pulmonary vascularity are within normal limits. IMPRESSION: Moderate right pleural effusion.
[2017-07-28 15:10] LABS: Chol/HDL Ratio 2.04 %
--- NOTE | 2017-07-28 15:46 | Consultation ---
History of Present Illness Consult date: 07/28/17 Consult reason: chest pain History of present illness: This is a 72yr old male with a history of PVD status post left BKA, end stage renal disease on dialysis and coronary artery disease with remote coronary intervention. His latest cardiac workup was done at this hospital 8 weeks ago. At that time, he had a persantine thallium stress test that reports no reversible ischemia. There was a mildly reduced ejection fraction, 40-45% by echocardiogram. Patient was brought in with complaints of chest pain during dialysis. Patient is usually followed by [facility] but requests to be evaluated by [facility] thus this cardiac consultation. Patient denies shortness of breath and palpitations. There was no syncope. There were no chest pain on exertion. Patient reports his chest pain was relieved by IV morphine given in the emergency department. 12 lead ECG is a sinus rhythm with a right bundle branch block. Past History Past Medical History: CAD, diabetes, ESRD, heart failure, hypertension, other Past Surgical History: Other (AV fistula, Left BKA, Cardiac cath, Glaucoma eye surgery) Social history: , lives with family. denies: smoking, alcohol abuse, prescription drug abuse Family history: CAD, diabetes, hypertension Medications and Allergies Allergies Allergy/AdvReac Type Severity Reaction Status Date / Time No Known Allergies Allergy Verified 01/10/14 06:37 Home Medications Medication Instructions Recorded Confirmed Last Taken Type Furosemide [Lasix TAB] 80 mg PO QDAY 02/10/13 07/28/17 07/27/17 History Aspirin [Adult Low Dose Aspirin EC] 81 mg PO DAILY #30 tablet. 05/18/1707/27/17 Rx AtorvaSTATin [Lipitor] 40 mg PO QHS #30 tablet 06/21/17 07/28/17 07/27/17 Rx FLUoxetine [PROzac] 40 mg PO QDAY #30 capsule 06/21/17 07/28/17 07/27/17 Rx Gabapentin [Neurontin] 300 mg PO BID #60 capsule 06/21/17 07/28/17 07/27/17 Rx ISOSORBIDE MONOnitrate [Imdur ER] 30 mg PO DAILY #30 tablet 06/21/17 07/28/17 Rx cloNIDine [Catapres] 0.1 mg PO BID #60 tablet 06/21/17 07/28/17 07/27/17 Rx Active Meds: Active Medications Acetaminophen (Tylenol) 650 mg PO Q4H PRN PRN Reason: Pain MILD(1-3)/Fever >100.5/GARCIA Albuterol (Proventil) 2.5 mg IH Q4HRT PRN PRN Reason: Shortness Of Breath Atorvastatin Calcium (Lipitor) 40 mg PO QHS [facility] Clonidine HCl (Catapres) 0.1 mg PO BID [facility] Fluoxetine HCl (Prozac) 40 mg PO QDAY [facility] Furosemide (Lasix) 40 mg IV 0600,1800 [facility] Gabapentin (Neurontin) 300 mg PO BID [facility] Heparin Sodium/Sodium Chloride (Heparin/ 0.45% Nacl-25,000 Unit/500 Ml) 25,000 units in 500 mls @ 27 mls/hr IV TITR [facility]; Protocol Last Admin: 07/28/17 15:24 Dose: 1,350 units/hr, 27 mls/hr Isosorbide Mononitrate (Imdur) 30 mg PO DAILY [facility] Morphine Sulfate (Morphine) 2 mg IV Q4H PRN PRN Reason: Pain, Moderate (4-6) Nitroglycerin (Nitrostat) 0.4 mg SL Q5M PRN PRN Reason: Chest Pain Ondansetron HCl (Zofran) 4 mg IV Q8H PRN PRN Reason: Nausea And Vomiting Sodium Chloride (Sodium Chloride Flush Syringe 10 Ml) 10 ml IV BID [facility] Sodium Chloride (Sodium Chloride Flush Syringe 10 Ml) 10 ml IV PRN PRN PRN Reason: LINE FLUSH Sodium Chloride (Sodium Chloride Flush Syringe 10 Ml) 10 ml IV PRN PRN PRN Reason: LINE FLUSH Physical Examination Vital Signs Temp Pulse Resp BP Pulse Ox 98.6 F 72 16 110/68 95 07/28/17 12:41 07/28/17 12:41 07/28/17 12:41 07/28/17 12:41 07/28/17 12:41 General appearance: no acute distress HEENT: Positive: PERRL Cardiac: Positive: Reg Rate and Rhythm Lungs: Positive: Decreased Breath Sounds Extremities: Present: Other (left BKA) Results 07/28/17 11:59 07/28/17 12:04 Cardiac Enzymes 07/28/17 Range/Units 12:04 AST 28 (5-40) units/L Lipids 07/28/17 Range/Units 12:04 Triglycerides 73 (2-149) mg/dL Cholesterol 96 (50-199) mg/dL HDL Cholesterol 47 (40-59) mg/dL Cholesterol/HDL Ratio 2.04 % CBC 07/28/17 Range/Units 11:59 WBC 4.7 (4.5-11.0) K/mm3 RBC 2.88 L (3.65-5.03) M/mm3 Hgb 8.7 L (11.8-15.2) gm/dl Hct 27.1 L (35.5-45.6) % Plt Count 155 (140-440) K/mm3 Lymph # 0.6 L (1.2-5.4) K/mm3 [place] # 0.6 (0.0-0.8) K/mm3 Eos # 0.1 (0.0-0.4) K/mm3 Baso # 0.0 (0.0-0.1) K/mm3 Comprehensive Metabolic Panel 07/28/17 Range/Units 12:04 Sodium 141 (137-145) mmol/L Potassium 3.7 (3.6-5.0) mmol/L Chloride 96.3 L (98-107) mmol/L Carbon Dioxide 32 H (22-30) mmol/L BUN 20 (9-20) mg/dL Creatinine 4.3 H (0.8-1.5) mg/dL Glucose 80 (75-100) mg/dL Calcium 9.6 (8.4-10.2) mg/dL AST 28 (5-40) units/L ALT 12 (7-56) units/L Alkaline Phosphatase 164 H (35-129) units/L Total Protein 7.8 (6.3-8.2) g/dL Albumin 4.0 (3.9-5) g/dL Assessment and Plan Chest pain ESRD on dialysis Chronic elevated troponins Hypertension PVD s/p left BKA Chronic Anemia No reversible ischemia on MPI 05/2017. EF 40-45% on echocardiogram 05/2017.
[2017-07-28] MEDS: LASIX IV SCH (18:57)
[2017-07-28] MEDS: MORPHINE IV PRN (19:04)
[2017-07-28] MEDS: NEURONTIN PO SCH (21:49)
[2017-07-28] MEDS: CATAPRES PO SCH (21:49)
[2017-07-28] MEDS: SODIUM CHLORIDE FLUSH SYRINGE 10 ML IV SCH (21:50)
[2017-07-29 06:16] LABS: Hematocrit 26.8 % (35.5-45.6); Mean Corpuscular HGB Conc 34 % (32-34); Mean Corpuscular Hemoglobin 31 pg (28-32); Mean Corpuscular Volume 94 fl (84-94); Platelet Count 162 K/mm3 (140-440); Red Blood Count 2.86 M/mm3 (3.65-5.03); Red Cell Distribution Width 18.4 % (13.2-15.2)
[2017-07-29 06:26] LABS: INR 1.24 (0.87-1.13)
[2017-07-29 06:35] LABS: Partial Thromboplastin Time 109.3 Sec. (24.2-36.6)
[2017-07-29 06:45] LABS: Calcium 10.2 mg/dL (8.4-10.2)
[2017-07-29] MEDS: LASIX IV SCH ×2 (08:20→18:14)
[2017-07-29] MEDS ORDERED: NACL 0.9% 500 ML 500 ML ONE (09:05)
[2017-07-29] MEDS ORDERED: HALFPRIN EC PO ONE (09:06)
[2017-07-29] MEDS: HALFPRIN EC PO SCH (09:10)
[2017-07-29] MEDS ORDERED: HEPARIN/NS 5000 UNIT/500ML(CATH LAB) 1,000 ML IR ONE (09:29)
[2017-07-29] MEDS ORDERED: NITROGLYCERIN SYRINGE 3 ML ONE (09:30)
[2017-07-29] MEDS ORDERED: XYLOCAINE 2% INFILTRATI ONE (09:30)
[2017-07-29] MEDS ORDERED: CALAN ONE (09:30)
[2017-07-29] MEDS ORDERED: SUBLIMAZE ONE (09:31)
[2017-07-29] MEDS ORDERED: VERSED ONE (09:31)
[2017-07-29] MEDS: HEPARIN 10,000 UNITS/10 ML ONE ×2 (10:09→10:29)
[2017-07-29] MEDS ORDERED: PLAVIX ONE (10:24)
[2017-07-29] MEDS ORDERED: ALUM-MAG HYDROX-SIMETH 200-200-20MG/5ML ONE (10:30)
--- NOTE | 2017-07-29 10:56 | Cardiac Catherization Report ---
CARDIAC CATHETERIZATION AND CORONARY ANGIOPLASTY REASON FOR PROCEDURE: The patient is a 72-year-old man with coronary artery disease, status post previous multivessel coronary stents. He presented with continued, unstable angina despite a recent negative thallium stress test as a result of recurrent angina on medical therapy he was recommended to undergo cardiac catheterization. PROCEDURE: The patient was prepped and draped in a sterile fashion after informed consent. Right femoral artery was entered using the Seldinger technique followed by placement of a 6-Swedish sheath. Selective left and right coronary angiography was performed using #4 right and left Colleen catheters. The angiograms were reviewed. CORONARY ANGIOGRAPHY: The left main coronary artery was angiographically normal. A stent was visible in the mid left anterior descending artery. The stented segment was widely patent. Otherwise, there was diffuse mild atherosclerosis of the remainder of the mid and distal LAD segments. The diagonal branches were small caliber, contained mild diffuse atherosclerosis. The circumflex was a large system. The proximal AV groove circumflex contained mild irregularities. Following this, the circumflex then bifurcated into 2 large obtuse marginal branches. The superior obtuse marginal contained a stent in its mid segment. The stented segment was widely patent with very mild in-stent restenosis. Beyond the stent, there was a de rod, long 85-90% stenosis of the distal segment of this superior obtuse marginal. In addition, the proximal segment of this superior obtuse marginal also contained a hazy 75% stenosis. Both lesions as noted where de rod lesions outside the stented segment. The distal sub-branch of the circumflex artery was another large branch that also contained a stent in its proximal to mid segment. This stented segment was also widely patent, but this branch contained no other significant lesions. The right coronary artery was a relatively small caliber, but dominant vessel. There was mild diffuse atherosclerosis of the right coronary system. CORONARY ANGIOPLASTY: After review of the angiograms, we recommended ad hoc coronary intervention to the mid obtuse marginal. Recommendation was for interventional therapy of the de rod lesions in the proximal and the distal segments of the mid obtuse marginal. We selected a number 3.5 XB guiding catheter and advanced to the left coronary ostium. A 0.014 inch Tooth Cutter Spur 50 guidewire was then directed into the mid obtuse marginal vessel, across the lesional segments. In the primary stenting maneuver, we deployed a 2.75 x 15 mm Xience drug-eluting stent to the distal lesion, and deflated the stent to optimal pressures. There was an excellent angiographic result following stenting of this vessel. We then turned our attention to the proximal segment where we deployed a 3.0 x 8 mm Xience stent, again with an excellent angiographic result. Following the intervention, there was an excellent angiographic result both treated sites, 0 residual stenosis and MATT 3 flow was maintained down the vessel. Procedure was well tolerated by the patient and there were no complications. The catheters and the wires were removed, sheath removed, and hemostasis achieved using an Angio-Seal device. The patient was returned to the postprocedure unit in stable condition. CONCLUSION: 1. Multivessel coronary artery disease. 2. Patent mid left anterior descending artery stent. 3. Patent circumflex artery stents, in the mid segment of the mid obtuse marginal, and the mid segment of the distal obtuse marginal. Severe de rod coronary lesions in the proximal and distal segments of the mid obtuse marginal. 4. Successful ad hoc angioplasty and stenting of the mid obtuse marginal, excellent angiographic result following deployment of a 3.0 mm drug-eluting stent in the proximal segment and a 2.75 mm drug-eluting stent in the distal segment. JOB# [id number] RICKIE/LYNNETTE
[2017-07-29] MEDS: LOPRESSOR PO SCH ×2 (11:29→21:40)
--- NOTE | 2017-07-29 11:29 | Progress Note ---
Assessment and Plan Assessment and plan: Chest pain. Continue chest pain protocol. Patient does have chronically elevated troponins in the setting of renal disease. Also, patient with no reversible ischemia on MPI 05/2017. However, given comorbidities including ESRD on hemodialysis, diabetes mellitus type 2, hypertension and recurrent/ persistent angina despite negative noninvasive workup, cardiology has decided to proceed with diagnostic cath ESRD on dialysis. Continue hemodialysis per nephrology. Hypertension. Continue antihypertensive medications. PVD s/p left BKA. Chronic Anemia. Etiology secondary to anemia of CKD. Monitor H&H closely. History Interval history: No new issues overnight. Hospitalist Physical - Constitutional Vitals: Temp Pulse Resp BP Pulse Ox 97.7 F 71 18 150/73 100 07/29/17 08:20 07/29/17 08:20 07/29/17 08:20 07/29/17 08:20 07/29/17 08:20 General appearance: Present: no acute distress - EENT Eyes: Present: PERRL, EOM intact ENT: hearing intact, clear oral mucosa, dentition normal - Neck Neck: Present: supple, normal ROM - Respiratory Respiratory effort: normal Respiratory: bilateral: CTA - Cardiovascular Rhythm: regular Heart Sounds: Present: S1 & S2. Absent: gallop, rub - Extremities Extremities: no ischemia, No edema, Full ROM - Abdominal General gastrointestinal: soft, non-tender, non-distended, normal bowel sounds - Integumentary Integumentary: Present: clear, warm, dry - Neurologic Neurologic: CNII-XII intact, moves all extremities Results - Labs CBC & Chem 7: 07/29/17 05:03 07/29/17 05:03 Labs: Laboratory Last Values WBC 4.1 K/mm3 (4.5-11.0) L 07/29/17 05:03 RBC 2.86 M/mm3 (3.65-5.03) L 07/29/17 05:03 Hgb 9.0 gm/dl (11.8-15.2) L 07/29/17 05:03 Hct 26.8 % (35.5-45.6) L 07/29/17 05:03 MCV 94 fl (84-94) 07/29/17 05:03 MCH 31 pg (28-32) 07/29/17 05:03 MCHC 34 % (32-34) 07/29/17 05:03 RDW 18.4 % (13.2-15.2) H 07/29/17 05:03 Plt Count 162 K/mm3 (140-440) 07/29/17 05:03 Lymph % (Auto) 13.3 % (13.4-35.0) L 07/28/17 11:59 [place] % (Auto) 12.0 % (0.0-7.3) H 07/28/17 11:59 Eos % (Auto) 2.1 % (0.0-4.3) 07/28/17 11:59 Baso % (Auto) 0.9 % (0.0-1.8) 07/28/17 11:59 Lymph # 0.6 K/mm3 (1.2-5.4) L 07/28/17 11:59 [place] # 0.6 K/mm3 (0.0-0.8) 07/28/17 11:59 Eos # 0.1 K/mm3 (0.0-0.4) 07/28/17 11:59 Baso # 0.0 K/mm3 (0.0-0.1) 07/28/17 11:59 Seg Neutrophils % 71.7 % (40.0-70.0) H 07/28/17 11:59 Seg Neutrophils # 3.4 K/mm3 (1.8-7.7) 07/28/17 11:59 PT 16.3 Sec. (12.2-14.9) H 07/29/17 05:03 INR 1.24 (0.87-1.13) H 07/29/17 05:03 APTT 109.3 Sec. (24.2-36.6) H* 07/29/17 05:03 Heparin Anti-Xa Level 0.31 U.I./ml (0.3-0.7) 07/28/17 21:19 Sodium 140 mmol/L (137-145) 07/29/17 05:03 Potassium 4.7 mmol/L (3.6-5.0) D 07/29/17 05:03 Chloride 95.7 mmol/L (98-107) L 07/29/17 05:03 Carbon Dioxide 31 mmol/L (22-30) H 07/29/17 05:03 Anion Gap 18 mmol/L 07/29/17 05:03 BUN 31 mg/dL (9-20) H 07/29/17 05:03 Creatinine 6.2 mg/dL (0.8-1.5) H 07/29/17 05:03 Estimated GFR 11 ml/min 07/29/17 05:03 BUN/Creatinine Ratio 5 % 07/29/17 05:03 Glucose 101 mg/dL (75-100) H 07/29/17 05:03 POC Glucose 111 (70-105) H 07/29/17 05:48 Calcium 10.2 mg/dL (8.4-10.2) 07/29/17 05:03 Magnesium 2.20 mg/dL (1.7-2.3) 07/28/17 12:04 Total Bilirubin 0.60 mg/dL (0.1-1.2) 07/28/17 12:04 AST 28 units/L (5-40) 07/28/17 12:04 ALT 12 units/L (7-56) 07/28/17 12:04 Alkaline Phosphatase 164 units/L (35-129) H 07/28/17 12:04 Troponin T 0.121 ng/mL (0.00-0.029) H* 07/28/17 19:48 Total Protein 7.8 g/dL (6.3-8.2) 07/28/17 12:04 Albumin 4.0 g/dL (3.9-5) 07/28/17 12:04 Albumin/Globulin Ratio 1.1 % 07/28/17 12:04 Triglycerides 73 mg/dL (2-149) 07/28/17 12:04 Cholesterol 96 mg/dL (50-199) 07/28/17 12:04 LDL Cholesterol Direct 39 mg/dL (50-130) L 07/28/17 12:04 HDL Cholesterol 47 mg/dL (40-59) 07/28/17 12:04 Cholesterol/HDL Ratio 2.04 % 07/28/17 12:04 Lipase 21 units/L (13-60) 07/28/17 12:04
[2017-07-29] MEDS: IMDUR PO SCH (11:30)
[2017-07-29] MEDS: CATAPRES PO SCH ×2 (11:31→21:36)
[2017-07-29] MEDS: NEURONTIN PO SCH ×2 (11:31→21:36)
[2017-07-29] MEDS: PROzac PO SCH (11:32)
[2017-07-29] MEDS: SODIUM CHLORIDE FLUSH SYRINGE 10 ML IV SCH ×2 (11:35→21:43)
--- NOTE | 2017-07-29 12:06 | Event Note ---
Date: 07/29/17 Cardiac catheterization was completed, no complications. Findings: 1. Patent mid LAD stent 2. Patent mid obtuse marginal artery stent 3. Patent distal obtuse marginal artery stent 4. Nonobstructive disease of the right coronary artery Coronary intervention: There was severe de rod disease of the mid obtuse marginal branch in the proximal and distal vessel outside the stented segment. We performed successful angioplasty and stenting with excellent angiographic result following deployment of drug-eluting stents. The patient will be restarted on antiplatelet therapy with Plavix, additional medications will be aspirin, metoprolol, isosorbide and a statin.
[2017-07-29] MEDS: MORPHINE IV PRN ×2 (12:07→21:41)
[2017-07-29] MEDS: ZESTRIL PO SCH (18:13)
--- NOTE | 2017-07-29 18:15 | Consultation ---
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 denies: smoking (Ex smoker), alcohol abuse, prescription drug abuse Family history: CAD, cancer (Mother had Pancreatic CA), diabetes (Mother, brother, sister), hypertension (Mother, Brother, sister), other (One brother of Blood clots. One siter with DM and Hypertension developed ESRD and of heart disease) Medications and Allergies Allergies Allergy/AdvReac Type Severity Reaction Status Date / Time No Known Allergies Allergy Verified 01/10/14 06:37 Home Medications Medication Instructions Recorded Confirmed Last Taken Type FLUoxetine [PROzac] 40 mg PO QDAY #30 capsule 06/21/17 07/28/17 07/27/17 Rx Gabapentin [Neurontin] 300 mg PO BID #60 capsule 06/21/17 07/28/17 07/27/17 Rx ISOSORBIDE MONOnitrate [Imdur ER] 30 mg PO DAILY #30 tablet 06/21/17 07/28/17 Rx cloNIDine [Catapres] 0.1 mg PO BID #60 tablet 06/21/17 07/28/17 07/27/17 Rx Acetaminophen [Acetaminophen TAB] 325 mg PO Q4H PRN #30 tablet 07/30/17 Unknown Rx Aspirin EC [Aspirin Enteric Coated 81 mg PO QDAY #30 tablet 07/30/17 Unknown Rx TAB] AtorvaSTATin [Lipitor] 40 mg PO QHS #30 tablet 07/30/17 Unknown Rx Clopidogrel [Plavix] 75 mg PO QDAY #30 tablet 07/30/17 Unknown Rx Epoetin [place] 10,000 Unit [Procrit] 10,000 unit IV SHY PRN #1 vial 07/30/17 Unknown Rx Lisinopril [Zestril TAB] 10 mg PO QDAY #30 tablet 07/30/17 Unknown Rx Metoprolol [Lopressor TAB] 25 mg PO TID #90 tablet 07/30/17 Unknown Rx Oxycodone HCl/Acetaminophen 1 each PO Q6HR PRN #20 tablet 07/30/17 Unknown Rx [Percocet 10/325 mg] Zolpidem [Ambien] 10 mg PO QHS PRN #15 tab 07/30/17 Unknown Rx Active Meds: Active Medications Acetaminophen (Tylenol) 650 mg PO Q4H PRN PRN Reason: Pain MILD(1-3)/Fever >100.5/GARCIA Albuterol (Proventil) 2.5 mg IH Q4HRT PRN PRN Reason: Shortness Of Breath Aspirin (Halfprin Ec) 81 mg PO QDAY [facility] Last Admin: 07/29/17 09:10 Dose: 81 mg Atorvastatin Calcium (Lipitor) 40 mg PO QHS [facility] Last Admin: 07/28/17 21:49 Dose: 40 mg Clonidine HCl (Catapres) 0.1 mg PO BID [facility] Last Admin: 07/29/17 11:31 Dose: 0.1 mg Clopidogrel Bisulfate (Plavix) 75 mg PO QDAY [facility] Fluoxetine HCl (Prozac) 40 mg PO QDAY [facility] Last Admin: 07/29/17 11:32 Dose: 40 mg Furosemide (Lasix) 40 mg IV 0600,1800 [facility] Last Admin: 07/29/17 18:14 Dose: 40 mg Gabapentin (Neurontin) 300 mg PO BID [facility] Last Admin: 07/29/17 11:31 Dose: 300 mg Isosorbide Mononitrate (Imdur) 30 mg PO DAILY [facility] Last Admin: 07/29/17 11:30 Dose: 30 mg Lisinopril (Zestril) 10 mg PO QDAY [facility] Last Admin: 07/29/17 18:13 Dose: 10 mg Metoprolol Tartrate (Lopressor) 25 mg PO Q8HR [facility] Last Admin: 07/29/17 11:29 Dose: 25 mg Morphine Sulfate (Morphine) 2 mg IV Q4H PRN PRN Reason: Pain, Moderate (4-6) Last Admin: 07/29/17 12:07 Dose: 2 mg Nitroglycerin (Nitrostat) 0.4 mg SL Q5M PRN PRN Reason: Chest Pain Ondansetron HCl (Zofran) 4 mg IV Q8H PRN PRN Reason: Nausea And Vomiting Sodium Chloride (Sodium Chloride Flush Syringe 10 Ml) 10 ml IV BID [facility] Last Admin: 07/29/17 11:35 Dose: 10 ml Sodium Chloride (Sodium Chloride Flush Syringe 10 Ml) 10 ml IV PRN PRN PRN Reason: LINE FLUSH Sodium Chloride (Sodium Chloride Flush Syringe 10 Ml) 10 ml IV PRN PRN PRN Reason: LINE FLUSH Exam - Vital Signs Vital signs: Vital Signs Pulse Resp Pulse Ox 71 15 100 07/28/17 11:34 07/28/17 11:34 07/28/17 11:34 Results - Lab Results 07/30/17 05:30 07/30/17 05:30 Most recent lab results Calcium 10.2 mg/dL (8.4-10.2) 07/29/17 05:03 Magnesium 2.20 mg/dL (1.7-2.3) 07/28/17 12:04 Assessment and Plan - Patient Problems (1) ACS (acute coronary syndrome) Current Visit: Yes Status: Acute (2) Chronic systolic (congestive) heart failure Current Visit: Yes Status: Acute (3) Hypertensive chronic kidney disease with stage 5 chronic kidney disease or end stage renal disease Current Visit: Yes Status: Acute (4) Anemia of chronic disease Current Visit: No Status: Acute (5) ESRD (end stage renal disease) on dialysis Current Visit: No Status: Acute (6) Type 2 diabetes mellitus with diabetic nephropathy Current Visit: No Status: Acute
[2017-07-30 06:08] LABS: Basophils % (Auto) 1.2 % (0.0-1.8); Eosinophils # (Auto) 0.2 K/mm3 (0.0-0.4); Eosinophils % (Auto) 3.8 % (0.0-4.3); Hematocrit 26.1 % (35.5-45.6); Hemoglobin 8.8 gm/dl (11.8-15.2); Lymphocytes # (Auto) 0.6 K/mm3 (1.2-5.4); Lymphocytes % (Auto) 15.6 % (13.4-35.0); Mean Corpuscular HGB Conc 34 % (32-34); Mean Corpuscular Hemoglobin 31 pg (28-32); Mean Corpuscular Volume 93 fl (84-94); Monocytes # (Auto) 0.5 K/mm3 (0.0-0.8); Platelet Count 172 K/mm3 (140-440); Red Blood Count 2.81 M/mm3 (3.65-5.03); Red Cell Distribution Width 17.9 % (13.2-15.2)
[2017-07-30] MEDS: LOPRESSOR PO SCH ×2 (06:12→18:00)
[2017-07-30] MEDS: LASIX IV SCH (06:13)
[2017-07-30 06:37] LABS: Creatine Kinase MB 4.5 ng/mL (0.0-4.0)
[2017-07-30 06:39] LABS: Calcium 9.9 mg/dL (8.4-10.2)
--- NOTE | 2017-07-30 08:21 | XRay Report ---
AP CHEST: HISTORY: Post PCI Decreased right pleural effusion since 07/28/17. Cardiomegaly and pulmonary venous congestion are stable. Right venous catheter remains in good position. IMPRESSION: Decreased right pleural effusion.
[2017-07-30] MEDS ORDERED: PLAVIX PO SCH (10:00)
[2017-07-30] MEDS ORDERED: PROCRIT IV PRN (10:34)
[2017-07-30] MEDS ORDERED: NACL 0.9% 100 ML IV PRN (10:34)
[2017-07-30] MEDS ORDERED: HEPARIN IV PRN (10:34)
[2017-07-30] MEDS: HALFPRIN EC PO SCH (10:44)
[2017-07-30] MEDS: NEURONTIN PO SCH (10:45)
[2017-07-30] MEDS: PROzac PO SCH (10:45)
[2017-07-30] MEDS: IMDUR PO SCH (10:46)
[2017-07-30] MEDS: CATAPRES PO SCH (10:47)
[2017-07-30] MEDS: ZESTRIL PO SCH (10:48)
[2017-07-30] MEDS: SODIUM CHLORIDE FLUSH SYRINGE 10 ML IV SCH (10:48)
--- NOTE | 2017-07-30 11:19 | Progress Note ---
Assessment and Plan Recurrent chest pain [facility] findings: 1. Patent mid LAD stent 2. Patent mid obtuse marginal artery stent 3. Patent distal obtuse marginal artery stent 4. Nonobstructive disease of the right coronary artery s/p PCI of the mid obtuse marginal branch in the proximal and distal vessel outside the stented segment EF 40-45% on echocardiogram 05/2017. ESRD on dialysis Chronic elevated troponins Hypertension PVD s/p left BKA Chronic Anemia Hx of CAD Recommendations: Continue medical therapy for coronary artery disease to include dual antiplatelet therapy, beta blockers, long acting nitrates and statin therapy. Stable cardiac bernabe. Once discharged, f/u with [facility] as scheduled August 07. Subjective Date of service: 07/30/17 Interval history: Patient is resting in bed comfortably. He denies chest pain. Objective Vital Signs Temp Pulse Pulse Resp Resp BP BP 07/30/17 10:48 125/68 07/30/17 10:47 125/68 07/30/17 10:46 125/68 07/30/17 06:12 66 125/68 07/30/17 03:42 97.5 F L 66 18 125/67 07/30/17 00:20 99.3 F 95 H 16 150/93 07/30/17 00:17 67 114/66 07/30/17 00:00 97.5 F L 68 20 114/66 07/29/17 22:50 70 20 07/29/17 22:11 20 07/29/17 22:00 20 07/29/17 21:41 20 07/29/17 21:40 71 125/68 07/29/17 21:38 70 07/29/17 21:36 71 125/68 07/29/17 20:11 98.1 F 20 125/68 07/29/17 18:13 77 07/29/17 16:29 98.7 F 57 L 18 125/57 07/29/17 11:38 97.9 F 63 18 144/67 07/29/17 11:34 77 07/29/17 11:31 77 07/29/17 11:30 77 07/29/17 11:29 77 Pulse Ox 07/30/17 10:48 07/30/17 10:47 07/30/17 10:46 07/30/17 06:12 07/30/17 03:42 100 07/30/17 00:20 95 07/30/17 00:17 100 07/30/17 00:00 99 07/29/17 22:50 07/29/17 22:11 07/29/17 22:00 07/29/17 21:41 07/29/17 21:40 07/29/17 21:38 07/29/17 21:36 07/29/17 20:11 07/29/17 18:13 07/29/17 16:29 100 07/29/17 11:38 94 07/29/17 11:34 07/29/17 11:31 07/29/17 11:30 07/29/17 11:29 - Physical Examination General: No Apparent Distress HEENT: Positive: PERRL Neck: Positive: trachea midline Cardiac: Positive: Reg Rate and Rhythm Lungs: Positive: Decreased Breath Sounds Neuro: Positive: Grossly Intact Incision: Cardiac Cath Site (right groin) Extremities: Present: Other (left BKA) - Labs and Meds Cardiac Enzymes 07/30/17 Range/Units 05:30 CK-MB (CK-2) 4.5 H (0.0-4.0) ng/mL CBC 07/30/17 Range/Units 05:30 WBC 3.9 L (4.5-11.0) K/mm3 RBC 2.81 L (3.65-5.03) M/mm3 Hgb 8.8 L (11.8-15.2) gm/dl Hct 26.1 L (35.5-45.6) % Plt Count 172 (140-440) K/mm3 Lymph # 0.6 L (1.2-5.4) K/mm3 [place] # 0.5 (0.0-0.8) K/mm3 Eos # 0.2 (0.0-0.4) K/mm3 Baso # 0.0 (0.0-0.1) K/mm3 Comprehensive Metabolic Panel 07/30/17 Range/Units 05:30 Sodium 135 L (137-145) mmol/L Potassium 5.2 H (3.6-5.0) mmol/L Chloride 92.4 L (98-107) mmol/L Carbon Dioxide 30 (22-30) mmol/L BUN 45 H (9-20) mg/dL Creatinine 7.5 H (0.8-1.5) mg/dL Glucose 123 H (75-100) mg/dL Calcium 9.9 (8.4-10.2) mg/dL
--- NOTE | 2017-07-30 12:42 | Vascular Lab Report ---
LEFT UPPER EXTREMITY VENOUS DUPLEX: REASON FOR EXAM: Pain and swelling of the left upper extremity COMMENTS ON THE LEFT: All arm veins visualized are freely compressible without evidence of internal echogenicity. The subclavian and internal jugular veins are free of thrombus. Flow is spontaneous and phasic throughout. COMMENTS ON THE RIGHT: A limited study of the jugular and subclavian veins shows no evidence of thrombus. IMPRESSION: No evidence of acute or chronic deep venous thrombosis in the left upper extremity.
[2017-07-30] MEDS ORDERED: NACL 0.9 (PRIMING MACHINE ONLY DIALYSIS) MC ONE (14:36)
[2017-07-30 16:08] VITALS: BP 123/63
--- NOTE | 2017-07-30 18:13 | Discharge Summary ---
Providers - Providers Date of Admission: 07/28/17 13:35 Date of discharge: 07/30/17 Attending physician: EILEEN TANG 07/28/17 13:40 Consult to Physician [CONS] Routine Comment: Consulting Provider: UX JOVEL Physician Instructions: Reason For Exam: esrd 07/28/17 13:51 Consult to Cardiology [CONS] Routine Consulting Provider: BIN LIZ Reason For Exam: acs 07/29/17 Consult to Cardiac Rehabilitation [CONS] Routine Reason For Exam: post pci Primary care physician: HOTEL OPERATIONS MANAGER Hospitalization Condition: Stable Hospital course: Chest pain. ACS s/p LAD drug eluding stent ESRD on dialysis. Continue hemodialysis per nephrology. Hypertension. Continue antihypertensive medications. PVD s/p left BKA. Chronic Anemia. Etiology secondary to anemia of CKD. Monitor H&H closely. Acute hypoxic respiratory failure, weaned off 3 liters o2 , due to esrd fluid overload, poa. Disposition: NV-01 TO HOME OR SELFCARE Time spent for discharge: 33 min Core Measure Documentation - Palliative Care Palliative Care/ Comfort Measures: Not Applicable - Core Measures Any of the following diagnoses?: none - VTE Discharge Requirements Deep Vein Thrombosis/Pulmonary Embolism Present on Admission: No Has pt received <5 days of overlap therapy or INR<2.0: No Anticoagulant overlap therapy prescribed at discharge: No Contraindication No Overlap Therapy order at DC: Not Indicated Exam - Constitutional Vitals: Temp Pulse Resp BP Pulse Ox 98.2 F 60 20 123/63 100 07/30/17 15:45 07/30/17 15:45 07/30/17 15:45 07/30/17 15:45 07/30/17 03:42 General appearance: Present: no acute distress - EENT Eyes: Present: PERRL ENT: hearing intact, clear oral mucosa - Neck Neck: Present: supple - Respiratory Respiratory effort: normal Respiratory: bilateral: CTA - Cardiovascular Rhythm: regular Heart Sounds: Present: S1 & S2 - Abdominal General gastrointestinal: Present: soft, non-tender, non-distended, normal bowel sounds - Psychiatric Psychiatric: appropriate mood/affect - Neurologic Neurologic: CNII-XII intact, no focal deficits Plan Activity: other (no strenous activities until cleared by Cardiology) Diet: low salt, renal Additional Instructions: DO NOT stop the Plavix without Notifying the Piping Supervisor. No surgeries unless Piping Supervisor okay Follow up with: PRIMARY CARE,MD [Primary Care Provider] - 3-5 Days BIN LIZ MD [Staff Physician] - 7 Days XU JOVEL MD [Staff Physician] - 7 Days Prescriptions: AtorvaSTATin [Lipitor] 40 mg PO QHS #30 tablet Zolpidem [Ambien] 10 mg PO QHS PRN #15 tab PRN Reason: Insomnia Aspirin EC [Aspirin Enteric Coated TAB] 81 mg PO QDAY #30 tablet Clopidogrel [Plavix] 75 mg PO QDAY #30 tablet Lisinopril [Zestril TAB] 10 mg PO QDAY #30 tablet Metoprolol [Lopressor TAB] 25 mg PO TID #90 tablet Oxycodone HCl/Acetaminophen [Percocet 10/325 mg] 1 each PO Q6HR PRN #20 tablet PRN Reason: Pain , Severe (7-10)
--- NOTE | 2017-07-30 20:55 | Progress Note ---
Assessment and Plan - Patient Problems (1) ACS (acute coronary syndrome) Current Visit: Yes Status: Acute Plan to address problem: S/p PCI. Stable. Being managed by Vice President Risk Management (2) Chronic systolic (congestive) heart failure Current Visit: Yes Status: Acute Plan to address problem: Stable. Fluid removal on Dialysis. Continue with Sodium and Fluid restriction (3) Hypertensive chronic kidney disease with stage 5 chronic kidney disease or end stage renal disease Current Visit: Yes Status: Acute Plan to address problem: BP controlled. Follow up BP on current meds (4) Anemia of chronic disease Current Visit: No Status: Acute Plan to address problem: Give Epogen on Dialysis (5) ESRD (end stage renal disease) on dialysis Current Visit: No Status: Acute Plan to address problem: Tolerating Hemodialysis with no complications (6) Type 2 diabetes mellitus with diabetic nephropathy Current Visit: No Status: Acute Plan to address problem: Blood sugar management by Brady ALEGRE MD Subjective Date of service: 07/30/17 Principal diagnosis: ESRD, Angina Interval history: Patient seen on Dialysis this afternoon. Was feeling better. Chest pain resolved. Denies SOB Objective - Exam Narrative Exam: BP on dialysis 122/63 P 67 UFR 3 L Q 350/700 Elderly AAM in NAD CVS S1s2RR Lungs Clear Abd soft, ND, NT Ext no edema Neuro AOX3 - Vital Signs Vital signs: Vital Signs - 12hr 07/30/17 07/30/17 07/30/17 10:46 10:47 10:48 Temperature Pulse Rate Respiratory Rate Blood Pressure 125/68 125/68 125/68 O2 Sat by Pulse Oximetry 07/30/17 07/30/17 07/30/17 11:39 11:41 11:45 Temperature 97.4 F L 97.5 F L Pulse Rate 69 68 68 Respiratory 18 20 Rate Blood Pressure 111/64 126/71 O2 Sat by Pulse 97 99 Oximetry 07/30/17 07/30/17 07/30/17 12:00 12:15 12:30 Temperature Pulse Rate 69 67 68 Respiratory Rate Blood Pressure 118/67 122/63 108/62 O2 Sat by Pulse Oximetry 07/30/17 07/30/17 07/30/17 12:45 13:00 13:15 Temperature Pulse Rate 67 68 54 L Respiratory Rate Blood Pressure 119/58 113/61 115/51 O2 Sat by Pulse Oximetry 04/07/30/17 07/30/17 13:30 13:45 14:00 Temperature Pulse Rate 60 58 L 56 L Respiratory Rate Blood Pressure 111/60 122/45 101/55 O2 Sat by Pulse Oximetry 07/30/17 07/30/17 07/30/17 14:15 14:30 14:45 Temperature Pulse Rate 57 L 58 L 58 L Respiratory Rate Blood Pressure 113/60 124/65 113/57 O2 Sat by Pulse Oximetry 07/30/17 07/30/17 07/30/17 15:00 15:15 15:30 Temperature Pulse Rate 61 59 L 60 Respiratory Rate Blood Pressure 126/65 125/62 131/65 O2 Sat by Pulse Oximetry 07/30/17 07/30/17 15:45 17:32 Temperature 98.2 F Pulse Rate 60 70 Respiratory 20 Rate Blood Pressure 123/63 O2 Sat by Pulse 99 Oximetry - Lab 07/30/17 05:30 07/30/17 05:30 Most recent lab results Calcium 9.9 mg/dL (8.4-10.2) 07/30/17 05:30 Magnesium 2.20 mg/dL (1.7-2.3) 07/28/17 12:04
== END 2017-07-30 22:00 | disposition home or self-care (01) | DRG 246 ==
LOC: ED 11:14 → 4A 13:35
PROVIDERS: ADMIT Internal Medicine; ATTEND Internal Medicine
PROC: 027035Z Dilation of Coronary Artery, One Artery with Two Drug-eluting Intraluminal Devices, Percutaneous Approach (ICD-10-PCS; principal; 2017-07-29)
PROC: 4A023N7 Measurement of Cardiac Sampling and Pressure, Left Heart, Percutaneous Approach (ICD-10-PCS; 2017-07-29)
PROC: B2111ZZ Fluoroscopy of Multiple Coronary Arteries using Low Osmolar Contrast (ICD-10-PCS; 2017-07-29)
PROC: 5A1D70Z Performance of Urinary Filtration, Intermittent, Less than 6 Hours Per Day (ICD-10-PCS; 2017-07-30)
DX: T82.855A Stenosis of coronary artery stent, initial encounter (principal); N18.6 End stage renal disease; J96.01 Acute respiratory failure with hypoxia; I13.2 Hypertensive heart and chronic kidney disease with heart failure and with stage 5 chronic kidney disease, or end stage renal disease; I50.22 Chronic systolic (congestive) heart failure; D53.9 Nutritional anemia, unspecified; E87.70 Fluid overload, unspecified; E11.51 Type 2 diabetes mellitus with diabetic peripheral angiopathy without gangrene; E11.22 Type 2 diabetes mellitus with diabetic chronic kidney disease; I25.10 Atherosclerotic heart disease of native coronary artery without angina pectoris; E11.21 Type 2 diabetes mellitus with diabetic nephropathy; M19.90 Unspecified osteoarthritis, unspecified site; Z95.5 Presence of coronary angioplasty implant and graft; Z79.82 Long term (current) use of aspirin; Z89.512 Acquired absence of left leg below knee; Z79.899 Other long term (current) drug therapy; I25.2 Old myocardial infarction; Z82.49 Family history of ischemic heart disease and other diseases of the circulatory system; Z83.3 Family history of diabetes mellitus
CPT/HCPCS: 36415; 71045; 71046; 80048; 80053; 80061; 82550; 82553; 82962; 83690; 83735; 84484; 85025; 85027; 85347; 85520; 85610; 85730; 92928; 93005; 93010; 93454; A9270-GY; C1760; C1769; C1874; C1887; C1894; C9600; J0885; J1644; J1940; J2250; J2270; J2405; J3010; J7030; J7040; Q9967

== ENCOUNTER 2017-09-07 06:06 | Inpatient (IN) | payer MEDICARE ==
[2017-09-07] MEDS ORDERED: ASPIRIN PO ONE (06:29)
--- NOTE | 2017-09-07 07:05 | Emergency Department Report ---
ED Chest Pain HPI - General Chief Complaint: Chest Pain Stated Complaint: CHEST PAIN Time Seen by Provider: 09/07/17 07:02 Source: patient Mode of arrival: Ambulatory Limitations: No Limitations - History of Present Illness MD Complaint: chest pain -: Sudden Onset: awoke with symptoms Pain Location: substernal, left chest Pain Radiation: none Severity: moderate Severity scale (0 -10): 7 Quality: heaviness, sharp Consistency: constant Improves With: rest, remaining still Worsens With: exertion re: denies: nausea, vomting, diaphoresis, dyspnea, sense of impending doom Other Symptoms: denies: cough, fever, syncope, rash, acid taste in mouth, leg swelling, palpitations, burping Treatments Prior to Arrival: none Aspirin use within the Past 7 Days: (1) Yes - Related Data On Oral Contraceptives: No Previous Rx's Medication Instructions Recorded Last Taken Type FLUoxetine [PROzac] 40 mg PO QDAY #30 capsule 06/21/17 07/27/17 Rx Gabapentin [Neurontin] 300 mg PO BID #60 capsule 06/21/17 09/05/17 Rx ISOSORBIDE MONOnitrate [Imdur ER] 30 mg PO DAILY #30 tablet 06/21/17 07/27/17 Rx cloNIDine [Catapres] 0.1 mg PO BID #60 tablet 06/21/17 07/27/17 Rx Acetaminophen [Acetaminophen TAB] 325 mg PO Q4H PRN #30 tablet 07/30/17 Unknown Rx Aspirin EC [Aspirin Enteric Coated 81 mg PO QDAY #30 tablet 07/30/17 Unknown Rx TAB] AtorvaSTATin [Lipitor] 40 mg PO QHS #30 tablet 07/30/17 Unknown Rx Clopidogrel [Plavix] 75 mg PO QDAY #30 tablet 07/30/17 Unknown Rx Epoetin Francisco 10,000 Unit [Procrit] 10,000 unit IV SHY PRN #1 vial 07/30/17 Unknown Rx Lisinopril [Zestril TAB] 10 mg PO QDAY #30 tablet 07/30/17 Unknown Rx Metoprolol [Lopressor TAB] 25 mg PO TID #90 tablet 07/30/17 Unknown Rx Oxycodone HCl/Acetaminophen 1 each PO Q6HR PRN #20 tablet 07/30/17 Unknown Rx [Percocet 10/325 mg] Zolpidem [Ambien] 10 mg PO QHS PRN #15 tab 07/30/17 Unknown Rx Allergies Allergy/AdvReac Type Severity Reaction Status Date / Time No Known Allergies Allergy Verified 01/10/14 06:37 Heart Score - HEART Score History: Highly suspicious EKG: Non-specific Age: > 65 Risk factors: > 3 risk factors or hx of atherosclerotic disease Troponin: 1-3x normal limit HEART Score: 8 ED Review of Systems ROS: Stated complaint: CHEST PAIN Other details as noted in HPI Constitutional: denies: chills, fever Eyes: denies: eye pain, eye discharge, vision change ENT: denies: ear pain, throat pain Respiratory: denies: cough, shortness of breath, wheezing Cardiovascular: denies: chest pain, palpitations Endocrine: no symptoms reported Gastrointestinal: denies: abdominal pain, nausea, diarrhea Genitourinary: denies: urgency, dysuria Musculoskeletal: denies: back pain, joint swelling, arthralgia Skin: denies: rash, lesions Neurological: denies: headache, weakness, paresthesias Psychiatric: denies: anxiety, depression Hematological/Lymphatic: denies: easy bleeding, easy bruising ED Past Medical Hx - Past Medical History Previous Medical History?: Yes Hx Hypertension: Yes Hx Heart Attack/AMI: Yes Hx Congestive Heart Failure: No Hx Diabetes: Yes Hx Renal Disease: Yes (HD MWF) Hx Arthritis: Yes Hx Asthma: Yes Hx COPD: No - Surgical History Past Surgical History?: Yes Hx Coronary Stent: Yes - Family History Family history: hypertension - Social History Smoking Status: Never Smoker Substance Use Type: None - Medications Home Medications: Home Medications Medication Instructions Recorded Confirmed Last Taken Type FLUoxetine [PROzac] 40 mg PO QDAY #30 capsule 06/21/17 09/07/17 07/27/17 Rx Gabapentin [Neurontin] 300 mg PO BID #60 capsule 06/21/17 09/07/17 09/05/17 Rx ISOSORBIDE MONOnitrate [Imdur ER] 30 mg PO DAILY #30 tablet 06/21/17 09/07/17 Rx cloNIDine [Catapres] 0.1 mg PO BID #60 tablet 06/21/17 09/07/17 07/27/17 Rx Acetaminophen [Acetaminophen TAB] 325 mg PO Q4H PRN #30 tablet 07/30/17 Unknown Rx Aspirin EC [Aspirin Enteric Coated 81 mg PO QDAY #30 tablet 07/30/17 09/07/17 Unknown Rx TAB] AtorvaSTATin [Lipitor] 40 mg PO QHS #30 tablet 07/30/17 09/07/17 Unknown Rx Clopidogrel [Plavix] 75 mg PO QDAY #30 tablet 07/30/17 09/07/17 Unknown Rx Epoetin Francisco 10,000 Unit [Procrit] 10,000 unit IV SHY PRN #1 vial 07/30/1709/07 Unknown Rx Lisinopril [Zestril TAB] 10 mg PO QDAY #30 tablet 07/30/17 09/07/17 Unknown Rx Metoprolol [Lopressor TAB] 25 mg PO TID #90 tablet 07/30/17 09/07/17 Unknown Rx Oxycodone HCl/Acetaminophen 1 each PO Q6HR PRN #20 tablet 07/30/17 09/07/17 Unknown Rx [Percocet 10/325 mg] Zolpidem [Ambien] 10 mg PO QHS PRN #15 tab 07/30/17 09/07/17 Unknown Rx ED Physical Exam - General Limitations: No Limitations General appearance: alert, in no apparent distress - Head Head exam: Present: atraumatic, normocephalic - Eye Eye exam: Present: normal appearance - ENT ENT exam: Present: mucous membranes moist - Neck Neck exam: Present: normal inspection - Respiratory Respiratory exam: Present: normal lung sounds bilaterally. Absent: respiratory distress - Cardiovascular Cardiovascular Exam: Present: regular rate, normal rhythm. Absent: systolic murmur, diastolic murmur, rubs, gallop - GI/Abdominal GI/Abdominal exam: Present: soft, normal bowel sounds - Rectal Rectal exam: Present: deferred - Extremities Exam Extremities exam: Present: normal inspection - Back Exam Back exam: Present: normal inspection - Neurological Exam Neurological exam: Present: alert, oriented X3 - Psychiatric Psychiatric exam: Present: normal affect, normal mood - Skin Skin exam: Present: warm, dry, intact, normal color. Absent: rash ED Course Vital Signs 09/07/17 09/07/17 09/07/17 06:14 06:23 07:14 Temperature 98.0 F Pulse Rate 74 71 Respiratory 18 16 Rate Blood Pressure 165/70 Blood Pressure [Left] O2 Sat by Pulse 98 98 98 Oximetry 09/07/17 09/07/17 09/07/17 07:15 07:24 07:26 Temperature 97.8 F Pulse Rate 72 70 Respiratory 23 18 16 Rate Blood Pressure Blood Pressure 147/63 [Left] O2 Sat by Pulse 98 98 98 Oximetry 09/07/17 09/07/17 09/07/17 07:31 07:45 08:01 Temperature Pulse Rate 76 75 75 Respiratory 17 16 15 Rate Blood Pressure Blood Pressure [Left] O2 Sat by Pulse 99 98 97 Oximetry 09/07/17 09/07/17 09/07/17 08:15 08:30 08:34 Temperature Pulse Rate 75 70 Respiratory 17 14 Rate Blood Pressure 149/78 Blood Pressure 149/78 [Left] O2 Sat by Pulse 97 98 Oximetry 09/07/17 09/07/17 09/07/17 08:45 09:01 09:15 Temperature Pulse Rate 67 75 75 Respiratory 19 20 16 Rate Blood Pressure 149/78 152/71 152/71 Blood Pressure [Left] O2 Sat by Pulse 99 99 97 Oximetry 09/07/17 09/07/17 09/07/17 09:30 09:46 10:00 Temperature Pulse Rate 75 75 73 Respiratory 17 19 18 Rate Blood Pressure 152/71 152/71 Blood Pressure [Left] O2 Sat by Pulse 100 97 99 Oximetry 09/07/17 09/07/17 09/07/17 10:16 10:30 10:46 Temperature Pulse Rate 73 74 72 Respiratory 17 17 17 Rate Blood Pressure 152/71 152/71 152/71 Blood Pressure [Left] O2 Sat by Pulse 96 96 98 Oximetry 09/07/17 09/07/17 11:00 11:16 Temperature Pulse Rate 71 72 Respiratory 19 20 Rate Blood Pressure 152/71 110/74 Blood Pressure [Left] O2 Sat by Pulse 96 96 Oximetry - Reevaluation(s) Reevaluation #1: . Hospitalist consult for admission. Discussed case with hospitalist. Hospitalist does not want patient started on heparin at this time until next set of enzymes. Dr. Bird, Hospitalist to assume care. 09/07/17 07:55 Reevaluation #2: Discussed case with Dr. Gracia and he agrees with not heparinizing patient 09/07/17 10:40 MATT score - Matt Score Age > 65: (1) Yes Aspirin use within the Past 7 Days: (1) Yes 3 or more CAD Risk Factors: (1) Yes 2 or more Angina events in past 24 hrs: (0) No Known CAD with more than 50% Stenosis: (0) No Elevated Cardiac Markers: (0) No ST Deviation Greater than 0.5mm: (0) No MATT Score: 3 ED Medical Decision Making - Lab Data Result diagrams: 09/07/17 06:38 09/07/17 06:38 - EKG Data -: EKG Interpreted by Me EKG shows normal: sinus rhythm Rate: normal - EKG Data Interpretation: no acute changes, other (widening of the QRS due to right bundle branch block,.. ) - Radiology Data Radiology results: report reviewed, image reviewed - Medical Decision Making Asa 72-year-old male presents emergency with chest pain shortness of breath. Patient will be admitted to hospitalist service for further evaluation and treatment. Cardiology also consulted in the ER - Differential Diagnosis cp, acs. ckd. Critical care attestation.: If time is entered above; I have spent that time in minutes in the direct care of this critically ill patient, excluding procedure time. ED Disposition Clinical Impression: ESRD (end stage renal disease) on dialysis, Elevated troponin I level, Acute hyperkalemia, Elevated troponin Chest pain Qualifiers: Chest pain type: unspecified Qualified Code(s): R07.9 - Chest pain, unspecified Disposition: 09 OP ADMIT IP TO THIS HOSP Is pt being admited?: Yes Does the pt Need Aspirin: No Condition: Serious Time of Disposition: 07:50
[2017-09-07 07:13] LABS: INR 1.29 (0.87-1.13); Partial Thromboplastin Time 36.5 Sec. (24.2-36.6)
[2017-09-07 07:18] LABS: Calcium 9.4 mg/dL (8.4-10.2)
[2017-09-07 07:29] LABS: Hematocrit 32.6 % (35.5-45.6); Hemoglobin 10.8 gm/dl (11.8-15.2); Lymphocytes % (Auto) 12.6 % (13.4-35.0); Mean Corpuscular HGB Conc 33 % (32-34); Mean Corpuscular Hemoglobin 29 pg (28-32); Mean Corpuscular Volume 88 fl (84-94); Mean Platelet Volume 9.6 fl (6-12); Monocytes % (Auto) 15.6 % (0.0-7.3); Platelet Count 120 K/mm3 (140-440); Red Blood Count 3.69 M/mm3 (3.65-5.03); Red Cell Distribution Width 19.8 % (13.2-15.2)
[2017-09-07 07:30] LABS: Basophils # (Auto) 0.1 K/mm3 (0.0-0.1); Basophils % (Auto) 1.7 % (0.0-1.8); Eosinophils # (Auto) 0.2 K/mm3 (0.0-0.4); Eosinophils % (Auto) 3.6 % (0.0-4.3); Lymphocytes # (Auto) 0.6 K/mm3 (1.2-5.4); Monocytes # (Auto) 0.7 K/mm3 (0.0-0.8)
[2017-09-07 07:50] LABS: Chol/HDL Ratio 2.26 %
--- NOTE | 2017-09-07 16:35 | Progress Note ---
Assessment and Plan - Patient Problems (1) ACS (acute coronary syndrome) Current Visit: No Status: Acute Plan to address problem: Chest pain w/u Lexiscan in AM Elevated Troponin sec to probably ESRD (2) Acute hyperkalemia Current Visit: Yes Status: Acute Plan to address problem: MIld Anti Hyperkalemia meds given Also patient due for HD on Friday (3) ESRD (end stage renal disease) on dialysis Current Visit: Yes Status: Chronic Plan to address problem: Cont HD as per schedule (4) HTN (hypertension) Current Visit: Yes Status: Chronic Qualifiers: Hypertension type: essential hypertension Qualified Code(s): I10 - Essential (primary) hypertension Plan to address problem: Cont antihypertensives (5) Coronary artery disease Current Visit: Yes Status: Chronic Qualifiers: Coronary Disease-Associated Artery/Lesion type: [place] artery [place] vs. transplanted heart: [place] heart Plan to address problem: Cont Plavix and Isosorbide (6) HLD (hyperlipidemia) Current Visit: Yes Status: Chronic Qualifiers: Hyperlipidemia type: mixed hyperlipidemia Qualified Code(s): E78.2 - Mixed hyperlipidemia Plan to address problem: Cont statins (7) Depression Current Visit: Yes Status: Chronic Qualifiers: Depression Type: unspecified Qualified Code(s): F32.9 - Major depressive disorder, single episode, unspecified Plan to address problem: Cont Fluoxetine (8) DVT prophylaxis Current Visit: Yes Status: Acute Plan to address problem: SCD's Subjective Date of service: 09/07/17 Principal diagnosis: Chest pain 1 day-Retrosternal Interval history: History of Present Illness: Chest pain- Sudden Onset: awoke with symptoms Pain Location: substernal, left chest Pain Radiation: none Severity: moderate Severity scale (0 -10): 7 Quality: heaviness, sharp Consistency: constant Improves With: rest, remaining still Worsens With: exertion re: denies: nausea, vomting, diaphoresis, dyspnea, sense of impending doom Other Symptoms: denies: cough, fever, syncope, rash, acid taste in mouth, leg swelling, palpitations, burping Treatments Prior to Arrival: none Aspirin use within the Past 7 Days: (1) Yes Past Medical History Previous Medical History?: Yes Hx Hypertension: Yes Hx Heart Attack/AMI: Yes Hx Congestive Heart Failure: No Hx Diabetes: Yes Hx Renal Disease: Yes (HD MWF) Hx Arthritis: Yes Hx Asthma: Yes Surgical History Past Surgical History?: Yes Hx Coronary Stent: Yes Family History Family history: hypertension Social History Smoking Status: Never Smoker Substance Use Type: None Medications Home Medications: Home Medications Medication Instructions Recorded Confirmed Last Taken Type FLUoxetine [PROzac] 40 mg PO QDAY #30 capsule 06/21/17 09/07/17 07/27/17 Rx Gabapentin [Neurontin] 300 mg PO BID #60 capsule 06/21/17 09/07/17 09/05/17 Rx ISOSORBIDE MONOnitrate [Imdur ER] 30 mg PO DAILY #30 tablet 06/21/17 09/07/17 Rx cloNIDine [Catapres] 0.1 mg PO BID #60 tablet 06/21/17 09/07/17 07/27/17 Rx Acetaminophen [Acetaminophen TAB] 325 mg PO Q4H PRN #30 tablet 07/30/17 Unknown Rx Aspirin EC [Aspirin Enteric Coated 81 mg PO QDAY #30 tablet 07/30/17 09/07/17 Unknown Rx TAB] AtorvaSTATin [Lipitor] 40 mg PO QHS #30 tablet 07/30/17 09/07/17 Unknown Rx Clopidogrel [Plavix] 75 mg PO QDAY #30 tablet 07/30/17 09/07/17 Unknown Rx Epoetin Francisco 10,000 Unit [Procrit] 10,000 unit IV SHY PRN #1 vial 07/30/1709/07 Unknown Rx Lisinopril [Zestril TAB] 10 mg PO QDAY #30 tablet 07/30/17 09/07/17 Unknown Rx Metoprolol [Lopressor TAB] 25 mg PO TID #90 tablet 07/30/17 09/07/17 Unknown Rx Oxycodone HCl/Acetaminophen 1 each PO Q6HR PRN #20 tablet 07/30/17 09/07/17 Unknown Rx [Percocet 10/325 mg] Zolpidem [Ambien] 10 mg PO QHS PRN #15 tab 07/30/17 09/07/17 Unknown Rx Review of Systems ROS: Stated complaint: CHEST PAIN Other details as noted in HPI 0 Constitutional: denies: chills, fever Eyes: denies: eye pain, eye discharge, vision change ENT: denies: ear pain, throat pain Respiratory: denies: cough, shortness of breath, wheezing Cardiovascular: denies: chest pain, palpitations Endocrine: no symptoms reported Gastrointestinal: denies: abdominal pain, nausea, diarrhea Genitourinary: denies: urgency, dysuria Musculoskeletal: denies: back pain, joint swelling, arthralgia Skin: denies: rash, lesions Neurological: denies: headache, weakness, paresthesias Psychiatric: denies: anxiety, depression Hematological/Lymphatic: denies: easy bleeding, easy bruising Objective - Constitutional Vitals: Vital Signs - 12hr 09/07/17 09/07/17 09/07/17 06:14 06:23 07:14 Temperature 98.0 F Pulse Rate 74 71 Respiratory 18 16 Rate Blood Pressure 165/70 Blood Pressure [Left] O2 Sat by Pulse 98 98 98 Oximetry 09/07/17 09/07/17 09/07/17 07:15 07:24 07:26 Temperature 97.8 F Pulse Rate 72 70 Respiratory 23 18 16 Rate Blood Pressure Blood Pressure 147/63 [Left] O2 Sat by Pulse 98 98 98 Oximetry 09/07/17 09/07/17 09/07/17 07:31 07:45 08:01 Temperature Pulse Rate 76 75 75 Respiratory 17 16 15 Rate Blood Pressure Blood Pressure [Left] O2 Sat by Pulse 99 98 97 Oximetry 09/07/17 09/07/17 09/07/17 08:15 08:30 08:34 Temperature Pulse Rate 75 70 Respiratory 17 14 Rate Blood Pressure 149/78 Blood Pressure 149/78 [Left] O2 Sat by Pulse 97 98 Oximetry 09/07/17 09/07/17 09/07/17 08:45 09:01 09:15 Temperature Pulse Rate 67 75 75 Respiratory 19 20 16 Rate Blood Pressure 149/78 152/71 152/71 Blood Pressure [Left] O2 Sat by Pulse 99 99 97 Oximetry 09/07/17 09/07/17 09/07/17 09:30 09:46 10:00 Temperature Pulse Rate 75 75 73 Respiratory 17 19 18 Rate Blood Pressure 152/71 152/71 Blood Pressure [Left] O2 Sat by Pulse 100 97 99 Oximetry 09/07/17 09/07/17 09/07/17 10:16 10:30 10:46 Temperature Pulse Rate 73 74 72 Respiratory 17 17 17 Rate Blood Pressure 152/71 152/71 152/71 Blood Pressure [Left] O2 Sat by Pulse 96 96 98 Oximetry 09/07/17 09/07/17 09/07/17 11:00 11:16 12:20 Temperature 98.1 F Pulse Rate 71 72 72 Respiratory 19 20 16 Rate Blood Pressure 152/71 110/74 99/57 Blood Pressure [Left] O2 Sat by Pulse 96 96 94 Oximetry General appearance: Present: no acute distress, well-nourished - EENT Eyes: PERRL, EOM intact ENT: hearing intact, clear oral mucosa Ears: bilateral: normal - Neck Neck: supple, normal ROM - Respiratory Respiratory effort: normal Respiratory: bilateral: CTA - Breasts Breasts: normal - Cardiovascular Rhythm: regular Heart Sounds: Present: S1 & S2. Absent: gallop, rub Extremities: pulses intact, No edema, normal color, Full ROM, abnormal (L BKA) - Gastrointestinal General gastrointestinal: Present: soft, non-tender, non-distended, normal bowel sounds - Genitourinary Male genitourinary: normal - Integumentary Integumentary: clear, warm, dry - Musculoskeletal Musculoskeletal: 1, strength equal bilaterally - Neurologic Neurologic: CNII-XII intact, moves all extremities - Psychiatric Psychiatric: memory intact, appropriate mood/affect, intact judgment & insight - Allied health notes Allied health notes reviewed: nursing, case management - Labs CBC & Chem 7: 09/08/17 06:53 09/07/17 06:38 Labs: Abnormal lab results 09/07/17 09/07/17 09/07/17 Range/Units 06:38 06:38 06:38 Hgb 10.8 L (11.8-15.2) gm/dl Hct 32.6 L (35.5-45.6) % RDW 19.8 H (13.2-15.2) % Plt Count 120 L (140-440) K/mm3 Lymph % (Auto) 12.6 L (13.4-35.0) % Brule % (Auto) 15.6 H (0.0-7.3) % Lymph # 0.6 L (1.2-5.4) K/mm3 PT 16.8 H (12.2-14.9) Sec. INR 1.29 H (0.87-1.13) Potassium 5.4 H (3.6-5.0) mmol/L Chloride 95.6 L (98-107) mmol/L Carbon Dioxide 33 H (22-30) mmol/L BUN 52 H (9-20) mg/dL Creatinine 7.6 H (0.8-1.5) mg/dL Glucose 151 H (75-100) mg/dL Troponin T 0.156 H* (0.00-0.029) ng/mL LDL Cholesterol Direct 38 L (50-130) mg/dL HDL Cholesterol 38 L (40-59) mg/dL 09/07/17 09/07/17 Range/Units 09:15 14:49 Hgb (11.8-15.2) gm/dl Hct (35.5-45.6) % RDW (13.2-15.2) % Plt Count (140-440) K/mm3 Lymph % (Auto) (13.4-35.0) % [place] % (Auto) (0.0-7.3) % Lymph # (1.2-5.4) K/mm3 PT (12.2-14.9) Sec. INR (0.87-1.13) Potassium (3.6-5.0) mmol/L Chloride (98-107) mmol/L Carbon Dioxide (22-30) mmol/L BUN (9-20) mg/dL Creatinine (0.8-1.5) mg/dL Glucose (75-100) mg/dL Troponin T 0.124 H* D 0.139 H* (0.00-0.029) ng/mL LDL Cholesterol Direct (50-130) mg/dL HDL Cholesterol (40-59) mg/dL
[2017-09-07] MEDS ORDERED: TYLENOL PO PRN ×2 (16:36→16:38)
[2017-09-07] MEDS ORDERED: ZOFRAN IV PRN (16:36)
[2017-09-07] MEDS ORDERED: MORPHINE IV PRN (16:36)
[2017-09-07] MEDS ORDERED: PERCOCET 5/325 PO PRN (16:36)
[2017-09-07] MEDS ORDERED: SODIUM CHLORIDE FLUSH SYRINGE 10 ML IV PRN (16:36)
[2017-09-07] MEDS ORDERED: NON-FORMULARY (Oxycodone Hcl/Acetaminophen [Percocet 10/325 Mg] 1 EACH) PO PRN (16:38)
[2017-09-07] MEDS ORDERED: AMBIEN PO PRN (16:38)
[2017-09-07] MEDS ORDERED: PLAVIX PO ONE (17:00)
[2017-09-07] MEDS: PERCOCET 5/325 PO PRN (17:31)
--- NOTE | 2017-09-07 18:00 | Consultation ---
History of Present Illness Consult date: 09/07/17 Consult reason: chest pain, shortness of breath History of present illness: Patient states this 72-year-old man with coronary artery disease, chronic hypertension, end-stage renal disease on hemodialysis, previous left below the knee amputation. He presents to the hospital with atypical chest pain and shortness of breath. His ECG was normal sinus rhythm, first-degree AV block, right bundle branch block with nonspecific ST and T-wave abnormalities. There was a mild troponin elevation of 0.15, similar magnitude to all previous troponin levels measured in his previous hospital stays. On my review of his chest x-ray, there is a moderate sized right pleural effusion, with a possible overlying consolidation. He has an extensive coronary artery disease history. A recent cardiac invasive procedure just last month, were patent stents in the mid LAD, and in 2 obtuse marginal branches of the circumflex. The right coronary artery was without significant disease, left ventricle ejection fraction was 40-45%. At that time last month, he had coronary intervention with drug-eluting stents deployed to 2 discrete de rod lesions in the circumflex system. He is on aspirin and Plavix dual antiplatelet therapy, but admits that in the past 3-4 days he has not taking his Plavix because he was unable to fill his prescription. Past History Past Medical History: CAD, heart failure, hypertension, renal failure Medications and Allergies Allergies Allergy/AdvReac Type Severity Reaction Status Date / Time No Known Allergies Allergy Verified 01/10/14 06:37 Home Medications Medication Instructions Recorded Confirmed Last Taken Type FLUoxetine [PROzac] 40 mg PO QDAY #30 capsule 06/21/17 09/07/17 07/27/17 Rx Gabapentin [Neurontin] 300 mg PO BID #60 capsule 06/21/17 09/07/17 09/05/17 Rx ISOSORBIDE MONOnitrate [Imdur ER] 30 mg PO DAILY #30 tablet 06/21/17 09/07/17 Rx cloNIDine [Catapres] 0.1 mg PO BID #60 tablet 06/21/17 09/07/17 07/27/17 Rx Acetaminophen [Acetaminophen TAB] 325 mg PO Q4H PRN #30 tablet 07/30/17 Unknown Rx Aspirin EC [Aspirin Enteric Coated 81 mg PO QDAY #30 tablet 07/30/17 09/07/17 Unknown Rx TAB] AtorvaSTATin [Lipitor] 40 mg PO QHS #30 tablet 07/30/17 09/07/17 Unknown Rx Clopidogrel [Plavix] 75 mg PO QDAY #30 tablet 07/30/17 09/07/17 Unknown Rx Epoetin Francisco 10,000 Unit [Procrit] 10,000 unit IV SHY PRN #1 vial 07/30/1709/07 Unknown Rx Lisinopril [Zestril TAB] 10 mg PO QDAY #30 tablet 07/30/17 09/07/17 Unknown Rx Metoprolol [Lopressor TAB] 25 mg PO TID #90 tablet 07/30/17 09/07/17 Unknown Rx Oxycodone HCl/Acetaminophen 1 each PO Q6HR PRN #20 tablet 07/30/17 09/07/17 Unknown Rx [Percocet 10/325 mg] Zolpidem [Ambien] 10 mg PO QHS PRN #15 tab 07/30/17 09/07/17 Unknown Rx Active Meds: Active Medications Acetaminophen (Tylenol) 650 mg PO Q4H PRN PRN Reason: Pain MILD(1-3)/Fever >100.5/GARCIA Acetaminophen (Tylenol) 325 mg PO Q4H PRN PRN Reason: Pain MILD(1-3)/Fever >100.5/GARCIA Aspirin (Halfprin Ec) 81 mg PO QDAY [facility] Atorvastatin Calcium (Lipitor) 40 mg PO QHS [facility] Clonidine HCl (Catapres) 0.1 mg PO BID [facility] Clopidogrel Bisulfate (Plavix) 75 mg PO QDAY [facility] Fluoxetine HCl (Prozac) 40 mg PO QDAY [facility] Gabapentin (Neurontin) 300 mg PO BID [facility] Isosorbide Mononitrate (Imdur) 30 mg PO DAILY [facility] Lisinopril (Zestril) 10 mg PO QDAY [facility] Metoprolol Tartrate (Lopressor) 25 mg PO TID [facility] Morphine Sulfate (Morphine) 2 mg IV Q4H PRN PRN Reason: Pain, Moderate (4-6) Ondansetron HCl (Zofran) 4 mg IV Q8H PRN PRN Reason: Nausea And Vomiting Last Admin: 09/07/17 17:31 Dose: 4 mg Oxycodone/Acetaminophen (Percocet 5/325) 2 tab PO Q6H PRN PRN Reason: Pain, Moderate (4-6) Last Admin: 09/07/17 17:31 Dose: 2 tab Sodium Chloride (Sodium Chloride Flush Syringe 10 Ml) 10 ml IV BID ROBB Sodium Chloride (Sodium Chloride Flush Syringe 10 Ml) 10 ml IV PRN PRN PRN Reason: LINE FLUSH Zolpidem Tartrate (Ambien) 10 mg PO QHS PRN PRN Reason: Insomnia Review of Systems Cardiovascular: chest pain, shortness of breath, no orthopnea, no palpitations, no rapid/irregular heart beat, no edema, no syncope, no lightheadedness Physical Examination Vital Signs Temp Pulse Resp BP Pulse Ox 98.0 F 74 18 165/70 98 09/07/17 06:14 09/07/17 06:14 09/07/17 06:14 09/07/17 06:14 09/07/17 06:14 General appearance: no acute distress HEENT: Positive: PERRL Neck: Positive: neck supple Cardiac: Positive: Reg Rate and Rhythm Lungs: Positive: Decreased Breath Sounds Neuro: Positive: Grossly Intact Abdomen: Positive: Soft Male genitourinary: Positive: deferred Skin: Positive: Clear Extremities: Absent: edema Results 09/07/17 06:38 09/07/17 06:38 Coagulation 09/07/17 Range/Units 06:38 PT 16.8 H (12.2-14.9) Sec. INR 1.29 H (0.87-1.13) APTT 36.5 (24.2-36.6) Sec. Lipids 09/07/17 Range/Units 06:38 Triglycerides 58 (2-149) mg/dL Cholesterol 86 (50-199) mg/dL HDL Cholesterol 38 L (40-59) mg/dL Cholesterol/HDL Ratio 2.26 % CBC 09/07/17 Range/Units 06:38 WBC 4.5 (4.5-11.0) K/mm3 RBC 3.69 (3.65-5.03) M/mm3 Hgb 10.8 L (11.8-15.2) gm/dl Hct 32.6 L (35.5-45.6) % Plt Count 120 L (140-440) K/mm3 Lymph # 0.6 L (1.2-5.4) K/mm3 [place] # 0.7 (0.0-0.8) K/mm3 Eos # 0.2 (0.0-0.4) K/mm3 Baso # 0.1 (0.0-0.1) K/mm3 Comprehensive Metabolic Panel 09/07/17 Range/Units 06:38 Sodium 142 (137-145) mmol/L Potassium 5.4 H (3.6-5.0) mmol/L Chloride 95.6 L (98-107) mmol/L Carbon Dioxide 33 H (22-30) mmol/L BUN 52 H (9-20) mg/dL Creatinine 7.6 H (0.8-1.5) mg/dL Glucose 151 H (75-100) mg/dL Calcium 9.4 (8.4-10.2) mg/dL EKG interpretations - Telemetry EKG Rhythm: Sinus Rhythm Assessment and Plan - Patient Problems (1) Pleural effusion, right Current Visit: Yes Status: Acute Plan to address problem: The patient's presenting shortness of breath this likely related to the right pleural effusion and possible right lower lobe consolidation that is evident and the chest x-ray. I will defer to the internal medicine service and pulmonary for further evaluation and management. (2) Coronary artery disease Current Visit: Yes Status: Acute Plan to address problem: The patient had coronary stents placed in the circumflex system one month ago. Despite noncompliance with Plavix for 3-4 days, there is no clinical or ECG evidence of subacute or late thrombosis. But we will immediately resume his Plavix starting with a 300 mg bolus dose. No further coronary disease workup this necessary at this time, will defer to medical service for further evaluation of the right pleural effusion and possible right lung consolidation.
[2017-09-07] MEDS: LOPRESSOR PO SCH (21:12)
[2017-09-07] MEDS: SODIUM CHLORIDE FLUSH SYRINGE 10 ML IV SCH (21:13)
[2017-09-07] MEDS ORDERED: NEURONTIN PO SCH (22:00)
[2017-09-07] MEDS ORDERED: CATAPRES PO SCH (22:00)
[2017-09-08] MEDS ORDERED: PROTONIX IV ONE (00:10)
[2017-09-08 01:03] LABS: Hematocrit 33.3 % (35.5-45.6); Hemoglobin 9.9 gm/dl (11.8-15.2)
--- NOTE | 2017-09-08 04:14 | Event Note ---
Date: 09/07/17 Patient had one episode of vomiting dark blood. Give Protonix, check serial hemoglobin, consult GI hold asa
[2017-09-08 07:54] LABS: Basophils % (Auto) 0.5 % (0.0-1.8); Eosinophils # (Auto) 0.1 K/mm3 (0.0-0.4); Eosinophils % (Auto) 0.7 % (0.0-4.3); Hematocrit 28.4 % (35.5-45.6); Hemoglobin 9.6 gm/dl (11.8-15.2); Lymphocytes # (Auto) 0.4 K/mm3 (1.2-5.4); Lymphocytes % (Auto) 4.4 % (13.4-35.0); Mean Corpuscular HGB Conc 34 % (32-34); Mean Corpuscular Hemoglobin 30 pg (28-32); Mean Corpuscular Volume 89 fl (84-94); Monocytes # (Auto) 0.8 K/mm3 (0.0-0.8); Monocytes % (Auto) 9.7 % (0.0-7.3); Platelet Count 128 K/mm3 (140-440); Red Blood Count 3.21 M/mm3 (3.65-5.03); Red Cell Distribution Width 19.3 % (13.2-15.2)
[2017-09-08 08:19] LABS: Albumin 4.2 g/dL (3.9-5); Calcium 9.1 mg/dL (8.4-10.2)
[2017-09-08] MEDS ORDERED: NACL 0.9% 100 ML IV PRN (08:32)
--- NOTE | 2017-09-08 08:41 | Progress Note ---
Assessment and Plan - Patient Problems (1) GI bleed Current Visit: Yes Status: Acute Qualifiers: GI bleed type/associated pathology: gastrointestinal hemorrhage with hematemesis Qualified Code(s): K92.0 - Hematemesis Plan to address problem: IV Protonix Serial H/H 's GI consult (2) ACS (acute coronary syndrome) Current Visit: No Status: Acute Plan to address problem: He has an extensive coronary artery disease history. A recent cardiac invasive procedure just last month, were patent stents in the mid LAD, and in 2 obtuse marginal branches of the circumflex. The right coronary artery was without significant disease, left ventricle ejection fraction was 40-45%. At that time last month, he had coronary intervention with drug-eluting stents deployed to 2 discrete de rod lesions in the circumflex system. He is on aspirin and Plavix dual antiplatelet therapy, but admits that in the past 3-4 days he has not taking his Plavix because he was unable to fill his prescription. ] Lexiscan cancelled (3) Acute hyperkalemia Current Visit: Yes Status: Acute Plan to address problem: MIld Anti Hyperkalemia meds given Also patient due for HD on Friday (4) ESRD (end stage renal disease) on dialysis Current Visit: Yes Status: Chronic Plan to address problem: Cont HD as per schedule (5) HTN (hypertension) Current Visit: Yes Status: Chronic Qualifiers: Hypertension type: essential hypertension Qualified Code(s): I10 - Essential (primary) hypertension Plan to address problem: Cont antihypertensives (6) Coronary artery disease Current Visit: Yes Status: Chronic Qualifiers: Coronary Disease-Associated Artery/Lesion type: [place] artery [place] vs. transplanted heart: [place] heart Plan to address problem: Cont Plavix and Isosorbide (7) HLD (hyperlipidemia) Current Visit: Yes Status: Chronic Qualifiers: Hyperlipidemia type: mixed hyperlipidemia Qualified Code(s): E78.2 - Mixed hyperlipidemia Plan to address problem: Cont statins (8) Depression Current Visit: Yes Status: Chronic Qualifiers: Depression Type: unspecified Qualified Code(s): F32.9 - Major depressive disorder, single episode, unspecified Plan to address problem: Cont Fluoxetine (9) DVT prophylaxis Current Visit: Yes Status: Acute Plan to address problem: SCD's Subjective Date of service: 09/08/17 Principal diagnosis: Chest pain 1 day-Retrosternal Interval history: Overnite events noted Had coffee ground emesis --one episode Objective - Constitutional Vitals: Vital Signs - 12hr 09/07/17 09/07/17 09/08/17 21:11 23:58 00:41 Temperature 98.4 F Pulse Rate 76 Respiratory 18 18 18 Rate Blood Pressure 141/51 O2 Sat by Pulse 97 Oximetry 09/08/17 09/08/17 00:51 04:23 Temperature 97.9 F Pulse Rate 64 74 Respiratory 18 Rate Blood Pressure 130/65 O2 Sat by Pulse 97 Oximetry General appearance: Present: no acute distress, well-nourished - EENT Eyes: PERRL, EOM intact ENT: hearing intact, clear oral mucosa Ears: bilateral: normal - Neck Neck: supple, normal ROM - Respiratory Respiratory effort: normal Respiratory: bilateral: CTA - Breasts Breasts: normal - Cardiovascular Heart rate: 80 Rhythm: regular Heart Sounds: Present: S1 & S2. Absent: gallop, rub Extremities: no ischemia, pulses intact, No edema, normal color, Full ROM - Gastrointestinal General gastrointestinal: Present: soft, non-tender, non-distended, normal bowel sounds - Genitourinary Male genitourinary: normal - Integumentary Integumentary: clear, warm, dry - Musculoskeletal Musculoskeletal: 1, strength equal bilaterally - Neurologic Neurologic: moves all extremities - Psychiatric Psychiatric: memory intact, appropriate mood/affect, intact judgment & insight - Labs CBC & Chem 7: 09/08/17 06:53 09/08/17 06:53 Labs: Abnormal lab results 09/07/17 09/07/17 09/07/17 Range/Units 09:15 12:17 14:49 RBC (3.65-5.03) M/mm3 Hgb (11.8-15.2) gm/dl Hct (35.5-45.6) % RDW (13.2-15.2) % Plt Count (140-440) K/mm3 Lymph % (Auto) (13.4-35.0) % [place] % (Auto) (0.0-7.3) % Lymph # (1.2-5.4) K/mm3 Seg Neutrophils % (40.0-70.0) % Potassium (3.6-5.0) mmol/L Chloride (98-107) mmol/L BUN (9-20) mg/dL Creatinine (0.8-1.5) mg/dL Glucose (75-100) mg/dL POC Glucose 146 H (70-105) Alkaline Phosphatase (35-129) units/L Troponin T 0.124 H* D 0.139 H* (0.00-0.029) ng/mL 09/07/17 09/07/17 09/07/17 Range/Units 16:44 17:53 21:36 RBC (3.65-5.03) M/mm3 Hgb (11.8-15.2) gm/dl Hct (35.5-45.6) % RDW (13.2-15.2) % Plt Count (140-440) K/mm3 Lymph % (Auto) (13.4-35.0) % [place] % (Auto) (0.0-7.3) % Lymph # (1.2-5.4) K/mm3 Seg Neutrophils % (40.0-70.0) % Potassium (3.6-5.0) mmol/L Chloride (98-107) mmol/L BUN (9-20) mg/dL Creatinine (0.8-1.5) mg/dL Glucose (75-100) mg/dL POC Glucose 150 H 149 H (70-105) Alkaline Phosphatase (35-129) units/L Troponin T 0.138 H* (0.00-0.029) ng/mL 09/07/17 09/08/17 09/08/17 Range/Units 23:21 00:24 06:43 RBC (3.65-5.03) M/mm3 Hgb 9.9 L (11.8-15.2) gm/dl Hct 33.3 L (35.5-45.6) % RDW (13.2-15.2) % Plt Count (140-440) K/mm3 Lymph % (Auto) (13.4-35.0) % [place] % (Auto) (0.0-7.3) % Lymph # (1.2-5.4) K/mm3 Seg Neutrophils % (40.0-70.0) % Potassium (3.6-5.0) mmol/L Chloride (98-107) mmol/L BUN (9-20) mg/dL Creatinine (0.8-1.5) mg/dL Glucose (75-100) mg/dL POC Glucose 160 H (70-105) Alkaline Phosphatase (35-129) units/L Troponin T 0.166 H* D (0.00-0.029) ng/mL 09/08/17 09/08/17 09/08/17 Range/Units 06:53 06:53 06:53 RBC 3.21 L (3.65-5.03) M/mm3 Hgb 9.6 L (11.8-15.2) gm/dl Hct 28.4 L (35.5-45.6) % RDW 19.3 H (13.2-15.2) % Plt Count 128 L (140-440) K/mm3 Lymph % (Auto) 4.4 L (13.4-35.0) % [place] % (Auto) 9.7 H (0.0-7.3) % Lymph # 0.4 L (1.2-5.4) K/mm3 Seg Neutrophils % 84.7 H (40.0-70.0) % Potassium 6.6 H* D (3.6-5.0) mmol/L Chloride 94.2 L (98-107) mmol/L BUN 79 H (9-20) mg/dL Creatinine 9.0 H (0.8-1.5) mg/dL Glucose 143 H (75-100) mg/dL POC Glucose (70-105) Alkaline Phosphatase 211 H (35-129) units/L Troponin T 0.128 H* D (0.00-0.029) ng/mL
[2017-09-08] MEDS ORDERED: CALCIUM CHLORIDE 2,000 MG in NACL 0.9% 100 ML IV ONE (08:47)
--- NOTE | 2017-09-08 09:05 | Gastroenterology Consultation ---
History of Present Illness - Reason for Consult Consult date: 09/08/17 hematemesis Requesting physician: BRENT GALLARDO - History of Present Illness The patient is a 72 year old man admitted with chest pain for whom consultation was requested for hematemesis. He had PCI with stents place a month ago and was admitted with chest pain. He had apparently been non compliant with his Plavix. This morning he vomited BRB and passed a large tarry black stool. There is no prior history of GI bleeding or PUD. He has multiple co morbid conditions including ESRD, on dialysis, DM and BKA. Past History Past Medical History: CAD, heart failure, hypertension, renal failure Past Surgical History: Other (BKA, AV fistula) Social history: no significant social history Family history: no significant family history Medications and Allergies Allergies Allergy/AdvReac Type Severity Reaction Status Date / Time No Known Allergies Allergy Verified 01/10/14 06:37 Home Medications Medication Instructions Recorded Confirmed Last Taken Type FLUoxetine [PROzac] 40 mg PO QDAY #30 capsule 06/21/17 09/07/17 07/27/17 Rx Gabapentin [Neurontin] 300 mg PO BID #60 capsule 06/21/17 09/07/17 09/05/17 Rx ISOSORBIDE MONOnitrate [Imdur ER] 30 mg PO DAILY #30 tablet 06/21/17 09/07/17 Rx cloNIDine [Catapres] 0.1 mg PO BID #60 tablet 06/21/17 09/07/17 07/27/17 Rx Acetaminophen [Acetaminophen TAB] 325 mg PO Q4H PRN #30 tablet 07/30/17 Unknown Rx Aspirin EC [Aspirin Enteric Coated 81 mg PO QDAY #30 tablet 07/30/17 09/07/17 Unknown Rx TAB] AtorvaSTATin [Lipitor] 40 mg PO QHS #30 tablet 07/30/17 09/07/17 Unknown Rx Clopidogrel [Plavix] 75 mg PO QDAY #30 tablet 07/30/17 09/07/17 Unknown Rx Epoetin Francisco 10,000 Unit [Procrit] 10,000 unit IV SHY PRN #1 vial 07/30/1709/07 Unknown Rx Lisinopril [Zestril TAB] 10 mg PO QDAY #30 tablet 07/30/17 09/07/17 Unknown Rx Metoprolol [Lopressor TAB] 25 mg PO TID #90 tablet 07/30/17 09/07/17 Unknown Rx Oxycodone HCl/Acetaminophen 1 each PO Q6HR PRN #20 tablet 07/30/17 09/07/17 Unknown Rx [Percocet 10/325 mg] Zolpidem [Ambien] 10 mg PO QHS PRN #15 tab 07/30/17 09/07/17 Unknown Rx Active Meds: Active Medications Acetaminophen (Tylenol) 650 mg PO Q4H PRN PRN Reason: Pain MILD(1-3)/Fever >100.5/GARCIA Acetaminophen (Tylenol) 325 mg PO Q4H PRN PRN Reason: Pain MILD(1-3)/Fever >100.5/GARCIA Clonidine HCl (Catapres-Tts Patch) 0.3 mg TD QWEEK ROBB Sodium Chloride (Nacl 0.9%) 100 mls @ 999 mls/hr IV SHY PRN PRN Reason: Hypotension Calcium Chloride 2,000 mg/ (Sodium Chloride) 120 mls @ 660 mls/hr IV ONCE ONE Stop: 09/08/17 08:56 Pantoprazole Sodium 80 mg/ (Sodium Chloride) 100 mls @ 10 mls/hr IV DIRECT ROBB Morphine Sulfate (Morphine) 2 mg IV Q4H PRN PRN Reason: Pain, Moderate (4-6) Last Admin: 09/07/17 21:11 Dose: 2 mg Ondansetron HCl (Zofran) 4 mg IV Q8H PRN PRN Reason: Nausea And Vomiting Last Admin: 09/07/17 17:31 Dose: 4 mg Oxycodone/Acetaminophen (Percocet 5/325) 2 tab PO Q6H PRN PRN Reason: Pain, Moderate (4-6) Last Admin: 09/07/17 17:31 Dose: 2 tab Sodium Chloride (Sodium Chloride Flush Syringe 10 Ml) 10 ml IV BID ROBB Last Admin: 09/07/17 21:13 Dose: 10 ml Sodium Chloride (Sodium Chloride Flush Syringe 10 Ml) 10 ml IV PRN PRN PRN Reason: LINE FLUSH Review of Systems - Review of Systems Constitutional: no weight loss, no weight gain, no fever, no chills Eyes: no change in vision Ears, Nose, Throat: no difficulty swallowing, no epistaxis Breasts: deferred Cardiovascular: chest pain, no shortness of breath Respiratory: no cough, no shortness of breath Gastrointestinal: nausea, diarrhea, hematemesis, melena, no abdominal pain Rectal: no pain Male Genitourinary: deferred Musculoskeletal: gait dysfunction Integumentary: no rash, no pruritis Neurological: no paralysis, no weakness Psychiatric: no anxiety, no memory loss Endocrine: no cold intolerance, no heat intolerance Hematologic/Lymphatic: easy bruising, easy bleeding Allergic/Immunologic: no wheezing Exam - Constitutional Vital Signs: Temp Pulse Resp BP Pulse Ox 98.0 F 78 18 116/53 97 09/08/17 08:32 09/08/17 08:32 09/08/17 08:32 09/08/17 08:32 09/08/17 08:32 General appearance: no acute distress, well-nourished - EENT Eyes: PERRL ENT: hearing intact, clear oral mucosa - Neck Neck: supple, normal ROM, no masses or JVD - Respiratory Respiratory effort: normal Respiratory: bilateral: CTA - Breasts Breasts: deferred - Cardiovascular Rhythm: regular Heart Sounds: Present: S1 & S2. Absent: gallop, rub Extremities: pulses intact, No edema, normal color, Full ROM, abnormal (left BKA ) - Gastrointestinal General gastrointestinal: Present: soft, non-tender, non-distended, normal bowel sounds. Absent: hepatomegaly, splenomegaly Rectal Exam: deferred - Genitourinary Male Genitourinary: deferred - Integumentary Integumentary: Present: clear, warm, dry - Neurologic Neurological: alert and oriented x3 - Psychiatric Psychiatric: appropriate mood/affect, intact judgment & insight, memory intact - Labs CBC & Chem 7: 09/08/17 06:53 09/08/17 06:53 Lab Results: Laboratory Results - last 24 hr 09/07/17 09/07/17 09/07/17 09:15 12:17 14:49 WBC RBC Hgb Hct MCV MCH MCHC RDW Plt Count Lymph % (Auto) [place] % (Auto) Eos % (Auto) Baso % (Auto) Lymph # [place] # Eos # Baso # Seg Neutrophils % Seg Neutrophils # Sodium Potassium Chloride Carbon Dioxide Anion Gap BUN Creatinine Estimated GFR BUN/Creatinine Ratio Glucose POC Glucose 146 H Hemoglobin A1c Calcium Total Bilirubin AST ALT Alkaline Phosphatase Troponin T 0.124 H* D 0.139 H* Total Protein Albumin Albumin/Globulin Ratio 09/07/17 09/07/17 09/07/17 16:44 17:53 17:53 WBC RBC Hgb Hct MCV MCH MCHC RDW Plt Count Lymph % (Auto) [place] % (Auto) Eos % (Auto) Baso % (Auto) Lymph # [place] # Eos # Baso # Seg Neutrophils % Seg Neutrophils # Sodium Potassium Chloride Carbon Dioxide Anion Gap BUN Creatinine Estimated GFR BUN/Creatinine Ratio Glucose POC Glucose 150 H Hemoglobin A1c 5.7 Calcium Total Bilirubin AST ALT Alkaline Phosphatase Troponin T 0.138 H* Total Protein Albumin Albumin/Globulin Ratio 09/07/17 09/07/17 09/08/17 21:36 23:21 00:24 WBC RBC Hgb 9.9 L Hct 33.3 L MCV MCH MCHC RDW Plt Count Lymph % (Auto) [place] % (Auto) Eos % (Auto) Baso % (Auto) Lymph # [place] # Eos # Baso # Seg Neutrophils % Seg Neutrophils # Sodium Potassium Chloride Carbon Dioxide Anion Gap BUN Creatinine Estimated GFR BUN/Creatinine Ratio Glucose POC Glucose 149 H Hemoglobin A1c Calcium Total Bilirubin AST ALT Alkaline Phosphatase Troponin T 0.166 H* D Total Protein Albumin Albumin/Globulin Ratio 09/08/17 09/08/17 09/08/17 06:43 06:53 06:53 WBC 8.3 RBC 3.21 L Hgb 9.6 L Hct 28.4 L MCV 89 MCH 30 MCHC 34 RDW 19.3 H Plt Count 128 L Lymph % (Auto) 4.4 L [place] % (Auto) 9.7 H Eos % (Auto) 0.7 Baso % (Auto) 0.5 Lymph # 0.4 L [place] # 0.8 Eos # 0.1 Baso # 0.0 Seg Neutrophils % 84.7 H Seg Neutrophils # 7.0 Sodium 140 Potassium 6.6 H* D Chloride 94.2 L Carbon Dioxide 27 Anion Gap 25 BUN 79 H Creatinine 9.0 H Estimated GFR 7 BUN/Creatinine Ratio 9 Glucose 143 H POC Glucose 160 H Hemoglobin A1c Calcium 9.1 Total Bilirubin 0.40 AST 28 ALT 26 Alkaline Phosphatase 211 H Troponin T Total Protein 7.7 Albumin 4.2 Albumin/Globulin Ratio 1.2 09/08/17 06:53 WBC RBC Hgb Hct MCV MCH MCHC RDW Plt Count Lymph % (Auto) [place] % (Auto) Eos % (Auto) Baso % (Auto) Lymph # [place] # Eos # Baso # Seg Neutrophils % Seg Neutrophils # Sodium Potassium Chloride Carbon Dioxide Anion Gap BUN Creatinine Estimated GFR BUN/Creatinine Ratio Glucose POC Glucose Hemoglobin A1c Calcium Total Bilirubin AST ALT Alkaline Phosphatase Troponin T 0.128 H* D Total Protein Albumin Albumin/Globulin Ratio Laboratory Results - last 24 hr 09/07/17 09/07/17 09/07/17 09:15 12:17 14:49 WBC RBC Hgb Hct MCV MCH MCHC RDW Plt Count Lymph % (Auto) [place] % (Auto) Eos % (Auto) Baso % (Auto) Lymph # [place] # Eos # Baso # Seg Neutrophils % Seg Neutrophils # Sodium Potassium Chloride Carbon Dioxide Anion Gap BUN Creatinine Estimated GFR BUN/Creatinine Ratio Glucose POC Glucose 146 H Hemoglobin A1c Calcium Total Bilirubin AST ALT Alkaline Phosphatase Troponin T 0.124 H* D 0.139 H* Total Protein Albumin Albumin/Globulin Ratio 09/07/17 09/07/17 09/07/17 16:44 17:53 17:53 WBC RBC Hgb Hct MCV MCH MCHC RDW Plt Count Lymph % (Auto) [place] % (Auto) Eos % (Auto) Baso % (Auto) Lymph # [place] # Eos # Baso # Seg Neutrophils % Seg Neutrophils # Sodium Potassium Chloride Carbon Dioxide Anion Gap BUN Creatinine Estimated GFR BUN/Creatinine Ratio Glucose POC Glucose 150 H Hemoglobin A1c 5.7 Calcium Total Bilirubin AST ALT Alkaline Phosphatase Troponin T 0.138 H* Total Protein Albumin Albumin/Globulin Ratio 09/07/17 09/07/17 09/08/17 21:36 23:21 00:24 WBC RBC Hgb 9.9 L Hct 33.3 L MCV MCH MCHC RDW Plt Count Lymph % (Auto) [place] % (Auto) Eos % (Auto) Baso % (Auto) Lymph # [place] # Eos # Baso # Seg Neutrophils % Seg Neutrophils # Sodium Potassium Chloride Carbon Dioxide Anion Gap BUN Creatinine Estimated GFR BUN/Creatinine Ratio Glucose POC Glucose 149 H Hemoglobin A1c Calcium Total Bilirubin AST ALT Alkaline Phosphatase Troponin T 0.166 H* D Total Protein Albumin Albumin/Globulin Ratio 09/08/17 09/08/17 09/08/17 06:43 06:53 06:53 WBC 8.3 RBC 3.21 L Hgb 9.6 L Hct 28.4 L MCV 89 MCH 30 MCHC 34 RDW 19.3 H Plt Count 128 L Lymph % (Auto) 4.4 L [place] % (Auto) 9.7 H Eos % (Auto) 0.7 Baso % (Auto) 0.5 Lymph # 0.4 L [place] # 0.8 Eos # 0.1 Baso # 0.0 Seg Neutrophils % 84.7 H Seg Neutrophils # 7.0 Sodium 140 Potassium 6.6 H* D Chloride 94.2 L Carbon Dioxide 27 Anion Gap 25 BUN 79 H Creatinine 9.0 H Estimated GFR 7 BUN/Creatinine Ratio 9 Glucose 143 H POC Glucose 160 H Hemoglobin A1c Calcium 9.1 Total Bilirubin 0.40 AST 28 ALT 26 Alkaline Phosphatase 211 H Troponin T Total Protein 7.7 Albumin 4.2 Albumin/Globulin Ratio 1.2 09/08/17 06:53 WBC RBC Hgb Hct MCV MCH MCHC RDW Plt Count Lymph % (Auto) [place] % (Auto) Eos % (Auto) Baso % (Auto) Lymph # [place] # Eos # Baso # Seg Neutrophils % Seg Neutrophils # Sodium Potassium Chloride Carbon Dioxide Anion Gap BUN Creatinine Estimated GFR BUN/Creatinine Ratio Glucose POC Glucose Hemoglobin A1c Calcium Total Bilirubin AST ALT Alkaline Phosphatase Troponin T 0.128 H* D Total Protein Albumin Albumin/Globulin Ratio Assessment and Plan - Patient Problems (1) Hematemesis/vomiting blood Current Visit: Yes Status: Acute Plan to address problem: Rule out PUD, AVMs, esophagitis. Needs endoscopy if felt an acceptable risk in this setting by cardiology. Plavix was restarted with a loading dose yesterday. Will discuss with cardiology. Await updated labs, coags. Keep NPO. (2) Elevated troponin Current Visit: Yes Status: Acute (3) GI bleed Current Visit: Yes Status: Acute Qualifiers: GI bleed type/associated pathology: gastrointestinal hemorrhage with hematemesis Qualified Code(s): K92.0 - Hematemesis (4) Coronary artery disease Current Visit: Yes Status: Chronic Qualifiers: Coronary Disease-Associated Artery/Lesion type: [place] artery [place] vs. transplanted heart: [place] heart (5) ESRD (end stage renal disease) Current Visit: No Status: Acute (6) Insulin dependent diabetes mellitus Current Visit: No Status: Acute
[2017-09-08] MEDS ORDERED: IMDUR PO SCH (10:00)
[2017-09-08] MEDS ORDERED: ZESTRIL PO SCH (10:00)
[2017-09-08] MEDS ORDERED: PROTONIX IV SCH (10:00)
[2017-09-08] MEDS ORDERED: PROTONIX 80 MG in NACL 0.9% 100 ML IV SCH (10:00)
[2017-09-08] MEDS ORDERED: PLAVIX PO SCH (10:00)
[2017-09-08] MEDS: SODIUM CHLORIDE FLUSH SYRINGE 10 ML IV SCH ×2 (10:00→23:36)
[2017-09-08] MEDS ORDERED: CATAPRES-TTS PATCH TD SCH (10:00)
[2017-09-08] MEDS ORDERED: PROzac PO SCH (10:00)
[2017-09-08] MEDS ORDERED: HALFPRIN EC PO SCH (10:00)
--- NOTE | 2017-09-08 10:40 | Consultation ---
History of Present Illness - Reason for Consult Consult date: 09/08/17 end stage renal disease, hyperkalemia Requesting physician: BRENT GALLARDO - History of Present Illness This is a 72 yo M well known to our group. has history of hypertension, coronary artery disease, end-stage renal disease on hemodialysis on a Friday schedule, who is admitted on 09/07 after presenting with acute chest pain. troponin was mildly elevated along with non-specific EKG changes, and was admitted for further cardiac evaluation. Pt admits that he has been missing his plavix for the last few days because he was not able to fill his prescriptions. Labs showed Elevated K of 6.6 along with increased BUN/Cr, renal consult is requested for management of ESRD/HD and correction of hyperkalemia. Pt's last HD was on Friday, received full treatment. Past History Past Medical History: CAD, heart failure, hypertension, renal failure Past Surgical History: PTCA (stents 2000, 2004 and 2009), Other (AV fistula, Left BKA 2013, Cardiac cath, Glaucoma eye surgery, [employer] and stenting to left leg) Social history: lives with family. denies: smoking, alcohol abuse, prescription drug abuse Family history: CAD, cancer (Mother had Pancreatic CA), diabetes (Mother, brother, sister), hypertension (Mother, brother, sister), other (One brother of Blood clots. One siter with DM and Hypertension developed ESRD and of heart disease) Medications and Allergies Allergies Allergy/AdvReac Type Severity Reaction Status Date / Time No Known Allergies Allergy Verified 01/10/14 06:37 Home Medications Medication Instructions Recorded Confirmed Last Taken Type FLUoxetine [PROzac] 40 mg PO QDAY #30 capsule 06/21/17 09/07/17 07/27/17 Rx Gabapentin [Neurontin] 300 mg PO BID #60 capsule 06/21/17 09/07/17 09/05/17 Rx ISOSORBIDE MONOnitrate [Imdur ER] 30 mg PO DAILY #30 tablet 06/21/17 09/07/17 Rx cloNIDine [Catapres] 0.1 mg PO BID #60 tablet 06/21/17 09/07/17 07/27/17 Rx Acetaminophen [Acetaminophen TAB] 325 mg PO Q4H PRN #30 tablet 07/30/17 Unknown Rx Aspirin EC [Aspirin Enteric Coated 81 mg PO QDAY #30 tablet 07/30/17 09/07/17 Unknown Rx TAB] AtorvaSTATin [Lipitor] 40 mg PO QHS #30 tablet 07/30/17 09/07/17 Unknown Rx Clopidogrel [Plavix] 75 mg PO QDAY #30 tablet 07/30/17 09/07/17 Unknown Rx Epoetin [place] 10,000 Unit [Procrit] 10,000 unit IV SHY PRN #1 vial 07/30/1709/07 Unknown Rx Lisinopril [Zestril TAB] 10 mg PO QDAY #30 tablet 07/30/17 09/07/17 Unknown Rx Metoprolol [Lopressor TAB] 25 mg PO TID #90 tablet 07/30/17 09/07/17 Unknown Rx Oxycodone HCl/Acetaminophen 1 each PO Q6HR PRN #20 tablet 07/30/17 09/07/17 Unknown Rx [Percocet 10/325 mg] Zolpidem [Ambien] 10 mg PO QHS PRN #15 tab 07/30/17 09/07/17 Unknown Rx Active Meds: Active Medications Acetaminophen (Tylenol) 650 mg PO Q4H PRN PRN Reason: Pain MILD(1-3)/Fever >100.5/GARCIA Acetaminophen (Tylenol) 325 mg PO Q4H PRN PRN Reason: Pain MILD(1-3)/Fever >100.5/GARCIA Clonidine HCl (Catapres-Tts Patch) 0.3 mg TD Mo ROBB Sodium Chloride (Nacl 0.9%) 100 mls @ 999 mls/hr IV SHY PRN PRN Reason: Hypotension Pantoprazole Sodium 80 mg/ (Sodium Chloride) 100 mls @ 10 mls/hr IV DIRECT ROBB Morphine Sulfate (Morphine) 2 mg IV Q4H PRN PRN Reason: Pain, Moderate (4-6) Last Admin: 09/07/17 21:11 Dose: 2 mg Ondansetron HCl (Zofran) 4 mg IV Q8H PRN PRN Reason: Nausea And Vomiting Last Admin: 09/07/17 17:31 Dose: 4 mg Oxycodone/Acetaminophen (Percocet 5/325) 2 tab PO Q6H PRN PRN Reason: Pain, Moderate (4-6) Last Admin: 09/07/17 17:31 Dose: 2 tab Sodium Chloride (Sodium Chloride Flush Syringe 10 Ml) 10 ml IV BID ROBB Last Admin: 09/07/17 21:13 Dose: 10 ml Sodium Chloride (Sodium Chloride Flush Syringe 10 Ml) 10 ml IV PRN PRN PRN Reason: LINE FLUSH Review of Systems All systems: negative Constitutional: no weight loss, no weight gain, no fever, no chills, no sweats, no night sweats, no anorexia, no fatigue, no weakness, no malaise, no lethargy Cardiovascular: chest pain, dyspnea on exertion, no syncope, no shortness of breath, no paroxysmal nocturnal dyspnea Exam - Vital Signs Vital signs: Vital Signs Temp Pulse Resp BP Pulse Ox 98.0 F 74 18 165/70 98 09/07/17 06:14 09/07/17 06:14 09/07/17 06:14 09/07/17 06:14 09/07/17 06:14 - General Appearance General appearance: well-developed, well-nourished, appears stated age EENT: ATNC, PERRL, mucous membranes moist Neck: Present: neck supple Respiratory: Clear to Ascultation Heart: regular, S1S2 Gastrointestinal: Present: normoactive bowel sounds Integumentary: no rash, other (no edema ) Results - Lab Results 09/08/17 06:53 09/08/17 06:53 Most recent lab results Calcium 9.1 mg/dL (8.4-10.2) 09/08/17 06:53 Assessment and Plan - Patient Problems (1) Acute hyperkalemia Current Visit: Yes Status: Acute Plan to address problem: HD today, using 1K bath for the first hour, then 2K bath. cont 2g k renal diet (2) Chest pain Current Visit: Yes Status: Acute Qualifiers: Chest pain type: unspecified Qualified Code(s): R07.9 - Chest pain, unspecified Plan to address problem: management as per cardiology (3) Pleural effusion, right Current Visit: Yes Status: Acute Plan to address problem: will target UF 2-3Kg as tolerated. if persistent effusion noted, recommend thoracentesis (4) ESRD (end stage renal disease) on dialysis Current Visit: Yes Status: Chronic Plan to address problem: cont HD on MWF schedule (5) HTN (hypertension) Current Visit: Yes Status: Chronic Qualifiers: Hypertension type: essential hypertension Qualified Code(s): I10 - Essential (primary) hypertension Plan to address problem: well controlled on current meds (6) Hematemesis/vomiting blood Current Visit: Yes Status: Acute Plan to address problem: episode of hematemesis and melena after starting plavix loading dose. follow GI recommendations.
--- NOTE | 2017-09-08 10:43 | Progress Note ---
Assessment and Plan Right pleural effusion Hematemesis ESRD on dialysis Hx of CAD s/p PCI 07/2017 EF 40-45% on echocardiogram 05/2017. Chronic elevated troponins Hypertension Subjective Date of service: 09/08/17 Principal diagnosis: Chest pain 1 day-Retrosternal Interval history: Reported hematemesis over night. Plavix and aspirin are currently on hold. Objective Vital Signs Temp Pulse Resp BP BP Pulse Ox 09/08/17 08:32 98.0 F 78 18 116/53 97 09/08/17 04:23 97.9 F 74 18 130/65 97 09/08/17 00:51 64 09/08/17 00:41 18 09/07/17 23:58 98.4 F 76 18 141/51 97 09/07/17 21:11 18 09/07/17 19:06 71 137/63 93 09/07/17 19:00 64 10 L 168/112 09/07/17 18:56 68 09/07/17 18:50 69 16 168/112 09/07/17 18:40 63 9 L 168/112 09/07/17 18:30 65 12 168/112 09/07/17 18:20 63 10 L 168/112 09/07/17 18:10 63 16 168/112 09/07/17 18:00 70 18 168/112 09/07/17 17:50 66 15 168/112 09/07/17 17:40 62 16 168/112 09/07/17 17:30 60 15 168/112 09/07/17 17:20 63 15 168/112 09/07/17 17:10 65 19 168/112 09/07/17 17:00 66 18 158/109 09/07/17 16:52 98.1 F 67 20 140/72 94 09/07/17 16:50 60 17 158/109 09/07/17 16:40 59 L 18 158/109 09/07/17 16:35 70 140/72 57 L 09/07/17 16:30 60 18 158/109 09/07/17 16:20 55 L 18 158/109 09/07/17 16:10 61 21 158/109 09/07/17 16:00 62 21 158/109 98 09/07/17 15:50 57 L 19 150/105 99 09/07/17 15:40 62 19 150/105 98 09/07/17 15:30 62 19 159/110 96 09/07/17 15:20 62 18 159/110 95 09/07/17 15:10 60 16 159/110 96 09/07/17 15:00 65 13 159/110 96 09/07/17 14:50 57 L 23 152/102 96 09/07/17 14:40 63 12 152/102 95 09/07/17 14:30 68 15 152/102 96 09/07/17 14:20 78 167/111 09/07/17 14:10 77 15 167/111 99 09/07/17 14:00 69 22 167/111 96 09/07/17 13:50 76 17 110/74 98 09/07/17 13:40 89 8 L 110/74 97 09/07/17 13:30 74 18 110/74 98 09/07/17 13:20 82 13 110/74 99 09/07/17 13:10 85 23 178/124 98 09/07/17 13:06 110/74 97 09/07/17 12:20 98.1 F 72 16 99/57 94 09/07/17 11:16 72 20 110/74 96 09/07/17 11:00 71 19 152/71 96 09/07/17 10:46 72 17 152/71 98 - Physical Examination General: No Apparent Distress HEENT: Positive: PERRL Cardiac: Positive: Reg Rate and Rhythm Neuro: Positive: Grossly Intact Abdomen: Positive: Soft Skin: Positive: Clear Extremities: Absent: edema - Labs and Meds Cardiac Enzymes 09/08/17 Range/Units 06:53 AST 28 (5-40) units/L CBC 09/08/17 09/08/17 Range/Units 00:24 06:53 WBC 8.3 (4.5-11.0) K/mm3 RBC 3.21 L (3.65-5.03) M/mm3 Hgb 9.9 L 9.6 L (11.8-15.2) gm/dl Hct 33.3 L 28.4 L (35.5-45.6) % Plt Count 128 L (140-440) K/mm3 Lymph # 0.4 L (1.2-5.4) K/mm3 [place] # 0.8 (0.0-0.8) K/mm3 Eos # 0.1 (0.0-0.4) K/mm3 Baso # 0.0 (0.0-0.1) K/mm3 Comprehensive Metabolic Panel 09/08/17 Range/Units 06:53 Sodium 140 (137-145) mmol/L Potassium 6.6 H* D (3.6-5.0) mmol/L Chloride 94.2 L (98-107) mmol/L Carbon Dioxide 27 (22-30) mmol/L BUN 79 H (9-20) mg/dL Creatinine 9.0 H (0.8-1.5) mg/dL Glucose 143 H (75-100) mg/dL Calcium 9.1 (8.4-10.2) mg/dL AST 28 (5-40) units/L ALT 26 (7-56) units/L Alkaline Phosphatase 211 H (35-129) units/L Total Protein 7.7 (6.3-8.2) g/dL Albumin 4.2 (3.9-5) g/dL
[2017-09-08] MEDS ORDERED: NACL 0.9 (PRIMING MACHINE ONLY DIALYSIS) MC ONE (11:20)
--- NOTE | 2017-09-08 14:30 | XRay Report ---
FINAL REPORT EXAM: XR CHEST 1V AP HISTORY: cp TECHNIQUE: AP portable view(s) of the chest obtained. PRIORS: 06/18/2017 FINDINGS: No mediastinal shift. Mild cardiomegaly. Right chest central line terminates near the superior cavoatrial junction. No pneumothorax. Blunting of the right costophrenic angle with ill-defined right basilar opacity appear similar to prior. Left lung is unremarkable. No acute skeletal finding. IMPRESSION: Right pleural effusion and ill-defined right basilar opacity appear similar to 06/18/2017.
[2017-09-08 15:02] LABS: Hematocrit 27.5 % (35.5-45.6); Hemoglobin 9.2 gm/dl (11.8-15.2); Mean Corpuscular HGB Conc 34 % (32-34); Mean Corpuscular Hemoglobin 30 pg (28-32); Mean Corpuscular Volume 88 fl (84-94); Platelet Count 131 K/mm3 (140-440); Red Blood Count 3.12 M/mm3 (3.65-5.03); Red Cell Distribution Width 19.1 % (13.2-15.2)
[2017-09-08 15:08] LABS: INR 1.33 (0.87-1.13)
[2017-09-08 20:51] LABS: Hematocrit 27.9 % (35.5-45.6); Hemoglobin 9.1 gm/dl (11.8-15.2)
[2017-09-08] MEDS: LOPRESSOR PO SCH ×2 (21:00→21:46)
[2017-09-08] MEDS: CATAPRES PO SCH (21:45)
[2017-09-08] MEDS: IMDUR PO SCH (21:45)
[2017-09-08] MEDS: ZESTRIL PO SCH (21:47)
[2017-09-08] MEDS: PERCOCET 5/325 PO PRN (21:48)
[2017-09-08] MEDS ORDERED: AMBIEN PO PRN (21:54)
[2017-09-09 06:44] LABS: Basophils % (Auto) 0.8 % (0.0-1.8); Eosinophils # (Auto) 0.1 K/mm3 (0.0-0.4); Eosinophils % (Auto) 2.5 % (0.0-4.3); Hematocrit 27.7 % (35.5-45.6); Hemoglobin 8.9 gm/dl (11.8-15.2); Lymphocytes # (Auto) 0.6 K/mm3 (1.2-5.4); Lymphocytes % (Auto) 12.4 % (13.4-35.0); Mean Corpuscular HGB Conc 32 % (32-34); Mean Corpuscular Hemoglobin 29 pg (28-32); Mean Corpuscular Volume 90 fl (84-94); Monocytes # (Auto) 0.7 K/mm3 (0.0-0.8); Monocytes % (Auto) 14.7 % (0.0-7.3); Platelet Count 138 K/mm3 (140-440); Red Blood Count 3.08 M/mm3 (3.65-5.03); Red Cell Distribution Width 19.3 % (13.2-15.2)
[2017-09-09 07:13] LABS: Albumin 3.7 g/dL (3.9-5); Calcium 9.8 mg/dL (8.4-10.2)
--- NOTE | 2017-09-09 09:37 | Progress Note ---
Assessment and Plan Assessment and plan: Patient is a 72-year-old man with history of diabetes mellitus type 2, depression, dlp, cps on percocet, left bka due to DM/PAD, chronic elevated troponin T levels in the 0.12 range, ESRD on hemodialysis Friday, Friday and Friday, coronary artery disease status post LOPEZ in the circumflex system 2 months ago and hypertension who presented to emergency department with chest pains, sob 2 days ago . He was found to severe hyperkalemia. He developed hematemesis yesterday. Date: 07/29/17 Cardiac catheterization was completed, no complications. Findings: 1. Patent mid LAD stent 2. Patent mid obtuse marginal artery stent 3. Patent distal obtuse marginal artery stent 4. Nonobstructive disease of the right coronary artery Coronary intervention: There was severe de rod disease of the mid obtuse marginal branch in the proximal and distal vessel outside the stented segment. We performed successful angioplasty and stenting with excellent angiographic result following deployment of drug-eluting stents. The patient will be restarted on antiplatelet therapy with Plavix, additional medications will be aspirin, metoprolol, isosorbide and a statin. Per Cardiology note: "He has an extensive coronary artery disease history. A recent cardiac invasive procedure just last month, were patent stents in the mid LAD, and in 2 obtuse marginal branches of the circumflex. The right coronary artery was without significant disease, left ventricle ejection fraction was 40-45%. At that time last month, he had coronary intervention with drug-eluting stents deployed to 2 discrete de rod lesions in the circumflex system. He is on aspirin and Plavix dual antiplatelet therapy, but admits that in the past 3-4 days he has not taking his Plavix because he was unable to fill his prescription." -Chest pains, doubt ACS: Cardiology following, -Acute GI blood loss anemia: GI is following, needs Endoscopy, received loading of plavix dose yesterday. -CAD s/p LOPEZ on 08/02/17 (see above), very difficult situation to manage as he needs to be on dual plt therapy because LOPEZ but has active gi bleed; so stopping the dual plt therapy may lead to cardiac complications or he could bleed to from gi bleed. Patient ran out of plavix, so he started taking 2 Aspirin 325mg per day x 1 week. History Interval history: Patient was seen and examined. Follow-up on current diagnosis of throwing up blood which has resolved. Overnight uneventful. Patient denies any chest pain, shortness breath, nausea/vomiting or severe headaches. Imaging, nursing note, chart, labs and old chart reviewed. Discussed with patient. Hospitalist Physical - Physical exam Narrative exam: GEN: WDWN, NAD, Awake, Alert, Orientated x 3 HEENT: NCAT, EOMI, PERRL, OP Clear NECK: supple, no adenopathy, no thyromegaly, no JVD CVS/HEART: RRR, normal S1S2, pulses present bilaterally CHEST/LUNGS: CTA B, Symmetrical chest expansion, good air entry bilaterally GI/Abdomen: soft, epigastric tenderness, good bowel sounds, no guarding or rebound /Bladder: no suprapubic tenderness, no CVA or paraspinal tenderness EXT/Skin: no c/c/e, no obvious rash MSK: FROM x 4 Neuro: CN 2-12 grossly intact, no new focal deficits Psych: calm - Constitutional Vitals: Temp Pulse Resp BP Pulse Ox 98.2 F 63 14 141/62 97 09/09/17 08:11 09/09/17 08:11 09/09/17 08:11 09/09/17 08:11 09/09/17 08:11 General appearance: Present: no acute distress, well-nourished Results - Labs CBC & Chem 7: 09/09/17 06:17 09/09/17 06:17 Labs: Laboratory Last Values WBC 5.1 K/mm3 (4.5-11.0) 09/09/17 06:17 RBC 3.08 M/mm3 (3.65-5.03) L 09/09/17 06:17 Hgb 8.9 gm/dl (11.8-15.2) L 09/09/17 06:17 Hct 27.7 % (35.5-45.6) L 09/09/17 06:17 MCV 90 fl (84-94) 09/09/17 06:17 MCH 29 pg (28-32) 09/09/17 06:17 MCHC 32 % (32-34) 09/09/17 06:17 RDW 19.3 % (13.2-15.2) H 09/09/17 06:17 Plt Count 138 K/mm3 (140-440) L 09/09/17 06:17 Lymph % (Auto) 12.4 % (13.4-35.0) L 09/09/17 06:17 [place] % (Auto) 14.7 % (0.0-7.3) H 09/09/17 06:17 Eos % (Auto) 2.5 % (0.0-4.3) 09/09/17 06:17 Baso % (Auto) 0.8 % (0.0-1.8) 09/09/17 06:17 Lymph # 0.6 K/mm3 (1.2-5.4) L 09/09/17 06:17 [place] # 0.7 K/mm3 (0.0-0.8) 09/09/17 06:17 Eos # 0.1 K/mm3 (0.0-0.4) 09/09/17 06:17 Baso # 0.0 K/mm3 (0.0-0.1) 09/09/17 06:17 Seg Neutrophils % 69.6 % (40.0-70.0) 09/09/17 06:17 Seg Neutrophils # 3.5 K/mm3 (1.8-7.7) 09/09/17 06:17 PT 17.2 Sec. (12.2-14.9) H 09/08/17 14:38 INR 1.33 (0.87-1.13) H 09/08/17 14:38 APTT 36.5 Sec. (24.2-36.6) 09/07/17 06:38 Sodium 139 mmol/L (137-145) 09/09/17 06:17 Potassium 4.9 mmol/L (3.6-5.0) D 09/09/17 06:17 Chloride 95.3 mmol/L (98-107) L 09/09/17 06:17 Carbon Dioxide 30 mmol/L (22-30) 09/09/17 06:17 Anion Gap 19 mmol/L 09/09/17 06:17 BUN 42 mg/dL (9-20) H 09/09/17 06:17 Creatinine 6.5 mg/dL (0.8-1.5) H 09/09/17 06:17 Estimated GFR 10 ml/min 09/09/17 06:17 BUN/Creatinine Ratio 6 % 09/09/17 06:17 Glucose 78 mg/dL (75-100) 09/09/17 06:17 POC Glucose 78 (70-105) 09/09/17 05:52 Hemoglobin A1c 5.7 % (4-6) 09/07/17 17:53 Calcium 9.8 mg/dL (8.4-10.2) 09/09/17 06:17 Total Bilirubin 0.50 mg/dL (0.1-1.2) 09/09/17 06:17 AST 23 units/L (5-40) 09/09/17 06:17 ALT 19 units/L (7-56) 09/09/17 06:17 Alkaline Phosphatase 181 units/L (35-129) H 09/09/17 06:17 Troponin T 0.128 ng/mL (0.00-0.029) H* D 09/08/17 06:53 Total Protein 7.2 g/dL (6.3-8.2) 09/09/17 06:17 Albumin 3.7 g/dL (3.9-5) L 09/09/17 06:17 Albumin/Globulin Ratio 1.1 % 09/09/17 06:17 Triglycerides 58 mg/dL (2-149) 09/07/17 06:38 Cholesterol 86 mg/dL (50-199) 09/07/17 06:38 LDL Cholesterol Direct 38 mg/dL (50-130) L 09/07/17 06:38 HDL Cholesterol 38 mg/dL (40-59) L 09/07/17 06:38 Cholesterol/HDL Ratio 2.26 % 09/07/17 06:38
--- NOTE | 2017-09-09 09:58 | Progress Note ---
Assessment and Plan - Patient Problems (1) Acute hyperkalemia Current Visit: Yes Status: Acute Plan to address problem: k normalized with HD (2) Chest pain Current Visit: Yes Status: Acute Qualifiers: Chest pain type: unspecified Qualified Code(s): R07.9 - Chest pain, unspecified Plan to address problem: management as per cardiology (3) Pleural effusion, right Current Visit: Yes Status: Acute Plan to address problem: will adjust UF as tolerated. if persistent/worsening effusion noted, recommend thoracentesis (4) ESRD (end stage renal disease) on dialysis Current Visit: Yes Status: Chronic Plan to address problem: cont HD on MWF schedule (5) HTN (hypertension) Current Visit: Yes Status: Chronic Qualifiers: Hypertension type: essential hypertension Qualified Code(s): I10 - Essential (primary) hypertension Plan to address problem: well controlled on current meds (6) Hematemesis/vomiting blood Current Visit: Yes Status: Acute Plan to address problem: episode of hematemesis and melena after starting plavix loading dose. follow GI recommendations. Subjective Date of service: 09/09/17 Principal diagnosis: Chest pain 1 day-Retrosternal Interval history: pt awake, alert, in NAD, denies active chest pain, no melena, hematemesis reported this AM Objective - Vital Signs Vital signs: Vital Signs - 12hr 09/08/17 09/08/17 09/09/17 22:00 23:29 00:10 Temperature 98.4 F Pulse Rate 78 77 Respiratory 20 18 Rate Blood Pressure 112/58 Blood Pressure 112/58 [Left] O2 Sat by Pulse 99 Oximetry 09/09/17 09/09/17 05:02 08:11 Temperature 98.9 F 98.2 F Pulse Rate 57 L 63 Respiratory 20 14 Rate Blood Pressure 141/62 Blood Pressure 131/62 [Left] O2 Sat by Pulse 98 97 Oximetry - General Appearance General appearance: well-developed, well-nourished, appears stated age EENT: ATNC, PERRL, mucous membranes moist Neck: no JVD Respiratory: Present: Clear to Ascultation Cardiology: regular, S1S2 Gastrointestinal: normoactive bowel sounds Integumentary: no rash, other (no edema ) Neurologic: no focal deficit, alert and oriented x3, strength 5/5, CN 3-12 intact Psychiatric: mood/affect appropriate, cooperative - Lab 09/09/17 06:17 09/09/17 06:17 Most recent lab results Calcium 9.8 mg/dL (8.4-10.2) 09/09/17 06:17
[2017-09-09] MEDS ORDERED: PLAVIX PO SCH (10:00)
--- NOTE | 2017-09-09 10:52 | Progress Note ---
Assessment and Plan Right pleural effusion Hematemesis ESRD on dialysis Hx of CAD s/p PCI 07/2017 EF 40-45% on echocardiogram 05/2017. Chronic elevated troponins Hypertension PVD s/p left BKA Plavix and aspirin therapy is on temporary hold until GI investigation is completed. Okay to proceed with GI endoscopy. Subjective Date of service: 09/09/17 Principal diagnosis: Chest pain 1 day-Retrosternal Interval history: Patient has no cardiac complaints. Awaits GI endoscopy. Objective Vital Signs Temp Pulse Resp BP BP Pulse Ox 09/09/17 08:11 98.2 F 63 14 141/62 97 09/09/17 05:02 98.9 F 57 L 20 131/62 98 09/09/17 00:10 98.4 F 77 18 112/58 99 09/08/17 23:29 112/58 09/08/17 22:00 78 20 09/08/17 19:47 99.3 F 79 20 137/65 95 09/08/17 19:17 80 137/65 94 09/08/17 17:55 78 134/78 09/08/17 14:52 78 20 131/62 96 09/08/17 13:30 98.0 F 80 18 145/70 09/08/17 13:25 80 145/70 09/08/17 13:15 78 134/72 09/08/17 13:00 78 135/71 09/08/17 12:45 78 135/70 09/08/17 12:30 76 138/72 09/08/17 12:15 76 138/66 09/08/17 12:00 77 132/68 09/08/17 11:45 78 116/55 09/08/17 11:30 79 128/66 09/08/17 11:15 76 127/64 09/08/17 11:00 78 126/63 - Physical Examination General: No Apparent Distress HEENT: Positive: PERRL Cardiac: Positive: Reg Rate and Rhythm - Labs and Meds Cardiac Enzymes 09/09/17 Range/Units 06:17 AST 23 (5-40) units/L Coagulation 09/08/17 Range/Units 14:38 PT 17.2 H (12.2-14.9) Sec. INR 1.33 H (0.87-1.13) CBC 09/08/17 09/08/17 09/08/17 Range/Units 14:38 14:38 19:43 WBC 6.2 (4.5-11.0) K/mm3 RBC 3.12 L (3.65-5.03) M/mm3 Hgb 9.2 L 9.2 L 9.1 L (11.8-15.2) gm/dl Hct 27.5 L 27.5 L 27.9 L (35.5-45.6) % Plt Count 131 L (140-440) K/mm3 Lymph # (1.2-5.4) K/mm3 [place] # (0.0-0.8) K/mm3 Eos # (0.0-0.4) K/mm3 Baso # (0.0-0.1) K/mm3 09/09/17 Range/Units 06:17 WBC 5.1 (4.5-11.0) K/mm3 RBC 3.08 L (3.65-5.03) M/mm3 Hgb 8.9 L (11.8-15.2) gm/dl Hct 27.7 L (35.5-45.6) % Plt Count 138 L (140-440) K/mm3 Lymph # 0.6 L (1.2-5.4) K/mm3 [place] # 0.7 (0.0-0.8) K/mm3 Eos # 0.1 (0.0-0.4) K/mm3 Baso # 0.0 (0.0-0.1) K/mm3 Comprehensive Metabolic Panel 09/09/17 Range/Units 06:17 Sodium 139 (137-145) mmol/L Potassium 4.9 D (3.6-5.0) mmol/L Chloride 95.3 L (98-107) mmol/L Carbon Dioxide 30 (22-30) mmol/L BUN 42 H (9-20) mg/dL Creatinine 6.5 H (0.8-1.5) mg/dL Glucose 78 (75-100) mg/dL Calcium 9.8 (8.4-10.2) mg/dL AST 23 (5-40) units/L ALT 19 (7-56) units/L Alkaline Phosphatase 181 H (35-129) units/L Total Protein 7.2 (6.3-8.2) g/dL Albumin 3.7 L (3.9-5) g/dL
[2017-09-09] MEDS ORDERED: NACL 0.9% 1000 ML 1,000 ML ONE (12:10)
[2017-09-09] MEDS ORDERED: NACL 0.9% 1000 ML 1,000 ML IV SCH (13:00)
[2017-09-09] MEDS ORDERED: WATER FOR IRRIG STERILE IR ONE (13:20)
[2017-09-09] MEDS ORDERED: DIPRIVAN 10 MG/ML IV ONE (13:22)
--- NOTE | 2017-09-09 13:48 | Operative Report ---
Operative Report Operative Report: Date of procedure: 09/09/2017 Procedure: Esophagogastroduodenoscopy Preprocedure diagnosis: Hematemesis. Patient on Plavix Post procedure diagnosis: Moderately severe erosive duodenitis. Congestive gastropathy. Endoscopist: Dr. Lake Anesthesia: Monitored anesthesia care per anesthesia department Medications: Propofol per anesthesia Estimated blood loss: 0 After careful discussion of the nature and purpose of the procedure as well as details the technique risks benefits and alternatives consent was obtained. The patient was placed in the left lateral decubitus position and medicated per anesthesia. The tip of the [employer] EQ 570 video scope was passed per orum under direct vision into the esophagus and advanced into the stomach and descending duodenum. The descending duodenum was normal. The duodenal bulb revealed severe erosive disease and edema. No deep ulcers present. The pylorus were symmetrical and normal. The scope was withdrawn into the stomach and the stomach then gently insufflated with air. The antrum was normal. The stomach was further insufflated and the scope was then retroflexed and partially withdrawn. The cardia, fundus, and body of the stomach reveals congestion and edema suggestive of portal hypertension gastropathy. Otherwise the proximal stomach was within normal limits and easily distensible.there were no discrete varices. The scope was then withdrawn in the forward position. The esophagogastric junction was at 40 cm. The esophageal body was normal throughout. The procedure was was well tolerated and the patient was observed in recovery. Impressions: Moderately severe erosive duodenitis likely consistent with renal disease. No discrete ulcers. Congestive gastropathy suggestive of portal hypertension. No discrete varices. Plan: Continue PPI therapy. The patient may be cautiously restarted on Plavix at this time. Electronically signed: Romie Lake MD
[2017-09-09 14:02] VITALS: BP 140/59
--- NOTE | 2017-09-09 14:34 | Event Note ---
Date: 09/09/17 The patient is stable post endoscopy. Erosive duodenitis and mild congestive gastropathy is present. He will have more studies for possible liver disease as an outpatient. Diet has been advanced. 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 OK to go home GI bernabe. Will s/o and see patient in office in 2 weeks.
--- NOTE | 2017-09-09 14:44 | Anesthesia Consultation ---
Anesthesia Consult and Med Hx Date of service: 09/09/17 - Airway Anesthetic Teeth Evaluation: Poor ROM Head & Neck: Adequate Mental/Hyoid Distance: Adequate Mallampati Class: Class III Intubation Access Assessment: Possibly Difficult - Pulmonary Exam CTA: Yes - Pre-Operative Health Status ASA Pre-Surgery Classification: ASA4 Proposed Anesthetic Plan: MAC - Pre-Anesthesia Comment Pre-Anesthesia Comments: right pleural effusin, hematemesis, Cardiac clearence to proceed with EGD - Pulmonary Hx Smoking: Yes (former smoker) Hx Asthma: Yes Hx Sleep Apnea: Yes - Cardiovascular System Hx Hypertension: Yes Hx Coronary Artery Disease: Yes Hx Angina: Yes Hx Percutaneous Transluminal Coronary Angioplasty (PTCA): Yes Hx Peripheral Vascular Disease: Yes (left BKA ) - Endocrine Hx Renal Disease: Yes (HD MWF) Hx End Stage Renal Disease: Yes Hx Non-Insulin Dependent Diabetes: Yes - Hematic Hx Anemia: Yes
--- NOTE | 2017-09-09 14:46 | Anesthesia Day of Surgery ---
Anesthesia Day of Surgery - Day of Surgery Patient Examined: Yes Patient H&P Reviewed: Yes Patient is NPO: Yes
[2017-09-09] MEDS: CATAPRES PO SCH (15:34)
[2017-09-09] MEDS: IMDUR PO SCH (15:35)
[2017-09-09] MEDS: LOPRESSOR PO SCH (15:35)
[2017-09-09] MEDS: SODIUM CHLORIDE FLUSH SYRINGE 10 ML IV SCH (15:36)
[2017-09-09] MEDS: ZESTRIL PO SCH (15:36)
--- NOTE | 2017-09-09 15:40 | Discharge Summary ---
Providers - Providers Date of Admission: 09/07/17 07:55 Date of discharge: 09/09/17 Attending physician: EILEEN BERNABE 09/07/17 10:41 Consult to Physician [CONS] Routine Comment: DR LIZ NOTIFIED 1030 Consulting Provider: BIN LIZ Physician Instructions: Reason For Exam: chest pain 09/07/17 16:36 Consult to Physician [CONS] Routine Comment: Consulting Provider: XU JOVEL Physician Instructions: Reason For Exam: ESRD 09/08/17 04:13 Consult to Physician [CONS] Routine Comment: Consulting Provider: ALAINA CASTRO Physician Instructions: Reason For Exam: hematesis Primary care physician: PLASTIC INSTALLER Hospitalization Condition: Serious Hospital course: Patient is a 72-year-old man with history of diabetes mellitus type 2, depression, dlp, cps on percocet, left bka due to DM/PAD, chronic elevated troponin T levels in the 0.12 range, ESRD on hemodialysis Friday, Friday and Friday, coronary artery disease status post LOPEZ in the circumflex system 2 months ago and hypertension who presented to emergency department with chest pains, sob 2 days ago . He was found to severe hyperkalemia. He developed hematemesis yesterday. Date: 07/29/17 Cardiac catheterization was completed, no complications. Findings: 1. Patent mid LAD stent 2. Patent mid obtuse marginal artery stent 3. Patent distal obtuse marginal artery stent 4. Nonobstructive disease of the right coronary artery Coronary intervention: There was severe de rod disease of the mid obtuse marginal branch in the proximal and distal vessel outside the stented segment. We performed successful angioplasty and stenting with excellent angiographic result following deployment of drug-eluting stents. The patient will be restarted on antiplatelet therapy with Plavix, additional medications will be aspirin, metoprolol, isosorbide and a statin. Per Cardiology note: "He has an extensive coronary artery disease history. A recent cardiac invasive procedure just last month, were patent stents in the mid LAD, and in 2 obtuse marginal branches of the circumflex. The right coronary artery was without significant disease, left ventricle ejection fraction was 40-45%. At that time last month, he had coronary intervention with drug-eluting stents deployed to 2 discrete de rod lesions in the circumflex system. He is on aspirin and Plavix dual antiplatelet therapy, but admits that in the past 3-4 days he has not taking his Plavix because he was unable to fill his prescription." "Operative Report: Date of procedure: 09/09/2017 Procedure: Esophagogastroduodenoscopy Preprocedure diagnosis: Hematemesis. Patient on Plavix Post procedure diagnosis: Moderately severe erosive duodenitis. Congestive gastropathy. Endoscopist: Dr. Lake Anesthesia: Monitored anesthesia care per anesthesia department Medications: Propofol per anesthesia Estimated blood loss: 0 After careful discussion of the nature and purpose of the procedure as well as details the technique risks benefits and alternatives consent was obtained. The patient was placed in the left lateral decubitus position and medicated per anesthesia. The tip of the [employer] EQ 570 video scope was passed per orum under direct vision into the esophagus and advanced into the stomach and descending duodenum. The descending duodenum was normal. The duodenal bulb revealed severe erosive disease and edema. No deep ulcers present. The pylorus were symmetrical and normal. The scope was withdrawn into the stomach and the stomach then gently insufflated with air. The antrum was normal. The stomach was further insufflated and the scope was then retroflexed and partially withdrawn. The cardia, fundus, and body of the stomach reveals congestion and edema suggestive of portal hypertension gastropathy. Otherwise the proximal stomach was within normal limits and easily distensible.there were no discrete varices. The scope was then withdrawn in the forward position. The esophagogastric junction was at 40 cm. The esophageal body was normal throughout. The procedure was was well tolerated and the patient was observed in recovery. Impressions: Moderately severe erosive duodenitis likely consistent with renal disease. No discrete ulcers. Congestive gastropathy suggestive of portal hypertension. No discrete varices. Plan: Continue PPI therapy. The patient may be cautiously restarted on Plavix at this time. The patient is stable post endoscopy. Erosive duodenitis and mild congestive gastropathy is present. He will have more studies for possible liver disease as an outpatient. Diet has been advanced. OK to restart Plavix and he should remain chcf on PPI therapy. OK to go home GI bernabe. Will s/o and see patient in office in 2 weeks." Electronically signed: Heide Lake MD -Chest pains, no ACS: Cardiology following, -Acute GI blood loss anemia: GI is following, needs Endoscopy, received loading of plavix dose yesterday. -Moderately severe erosive duodenitis. Congestive gastropathy. -CAD s/p LOPEZ on 08/02/17 (see above), very difficult situation to manage as he needs to be on dual plt therapy because LOPEZ but has active gi bleed; so stopping the dual plt therapy may lead to cardiac complications or he could bleed to from gi bleed. -DM; continue present management Patient ran out of plavix last Friday, so he started taking 2 Aspirin 325mg per day x 1 week. Education done, i told him to call his Sales Agent [employer] Report [employer] next time. He voiced agreement and understanding. Disposition: DC- TO HOME OR SELFCARE Time spent for discharge: 34 minutes Core Measure Documentation - Palliative Care Palliative Care/ Comfort Measures: Not Applicable - Core Measures Any of the following diagnoses?: none - VTE Discharge Requirements Deep Vein Thrombosis/Pulmonary Embolism Present on Admission: No Has pt received <5 days of overlap therapy or INR<2.0: No Anticoagulant overlap therapy prescribed at discharge: No Contraindication No Overlap Therapy order at DC: Not Indicated Exam - Physical Exam Narrative exam: GEN: WDWN, NAD, Awake, Alert, Orientated x 3 HEENT: NCAT, EOMI, PERRL, OP Clear NECK: supple, no adenopathy, no thyromegaly, no JVD CVS/HEART: RRR, normal S1S2, pulses present bilaterally CHEST/LUNGS: CTA B, Symmetrical chest expansion, good air entry bilaterally GI/Abdomen: soft, epigastric tenderness, good bowel sounds, no guarding or rebound /Bladder: no suprapubic tenderness, no CVA or paraspinal tenderness EXT/Skin: no c/c/e, no obvious rash MSK: FROM x 4 Neuro: CN 2-12 grossly intact, no new focal deficits Psych: calm - Constitutional Vitals: Temp Pulse Resp BP Pulse Ox 98.4 F 66 16 140/59 99 09/09/17 13:30 09/09/17 14:00 09/09/17 14:00 09/09/17 14:00 09/09/17 14:00 Plan Activity: other (no strenous activity until cleared by cardiology) Diet: renal Follow up with: JL SILVEIRA MD [Primary Care Provider] - 3-5 Days BIN LIZ MD [Staff Physician] - 7 Days XU JOVEL MD [Staff Physician] - 7 Days HEIDE LAKE MD [Staff Physician] - 7 Days Prescriptions: RX: AtorvaSTATin [Lipitor] 40 mg PO QHS #30 tablet RX: AtorvaSTATin [Lipitor] 40 mg PO QHS #30 tablet RX: Zolpidem [Ambien] 10 mg PO QHS PRN #10 tablet PRN Reason: Insomnia RX: cloNIDine [Catapres] 0.1 mg PO BID #60 tablet RX: Clopidogrel [Plavix] 75 mg PO QDAY #30 tablet RX: FLUoxetine [PROzac] 40 mg PO QDAY #30 capsule RX: Gabapentin [Neurontin] 300 mg PO BID #60 capsule RX: ISOSORBIDE MONOnitrate [Imdur ER] 30 mg PO QDAY #30 tablet RX: Lisinopril [Zestril TAB] 10 mg PO BID #60 tablet RX: Metoprolol [Lopressor TAB] 25 mg PO BID #60 tablet RX: oxyCODONE /ACETAMINOPHEN [Percocet 5/325 mg] 1 tab PO Q6H PRN #12 tablet PRN Reason: Pain , Severe (7-10)
== END 2017-09-09 16:49 | disposition home or self-care (01) | DRG 377 ==
LOC: ED 06:06 → 4A 07:55
PROVIDERS: ADMIT Internal Medicine; ATTEND Internal Medicine
PROC: 5A1D70Z Performance of Urinary Filtration, Intermittent, Less than 6 Hours Per Day (ICD-10-PCS; 2017-09-08)
PROC: 0DJ08ZZ Inspection of Upper Intestinal Tract, Via Natural or Artificial Opening Endoscopic (ICD-10-PCS; principal; 2017-09-09)
DX: K29.81 Duodenitis with bleeding (principal); N18.6 End stage renal disease; J90 Pleural effusion, not elsewhere classified; I12.0 Hypertensive chronic kidney disease with stage 5 chronic kidney disease or end stage renal disease; D62 Acute posthemorrhagic anemia; R07.89 Other chest pain; E87.5 Hyperkalemia; E11.22 Type 2 diabetes mellitus with diabetic chronic kidney disease; F32.9 Major depressive disorder, single episode, unspecified; E11.51 Type 2 diabetes mellitus with diabetic peripheral angiopathy without gangrene; K31.89 Other diseases of stomach and duodenum; G47.30 Sleep apnea, unspecified; E78.5 Hyperlipidemia, unspecified; I25.10 Atherosclerotic heart disease of native coronary artery without angina pectoris; Z95.5 Presence of coronary angioplasty implant and graft; Z82.49 Family history of ischemic heart disease and other diseases of the circulatory system; Z99.2 Dependence on renal dialysis; Z89.512 Acquired absence of left leg below knee; Z80.8 Family history of malignant neoplasm of other organs or systems; Z83.3 Family history of diabetes mellitus; Z79.82 Long term (current) use of aspirin; Z79.899 Other long term (current) drug therapy; Z79.4 Long term (current) use of insulin; I25.2 Old myocardial infarction
CPT/HCPCS: 36415; 71045; 80048; 80053; 80061; 82962; 83036; 84484; 85014; 85018; 85025; 85027; 85610; 85730; 93005; 93010; A9270-GY; C9113; J2270; J2405; J2704; J7030

== ENCOUNTER 2017-10-28 09:09 | Outpatient (CLI) | payer MEDICARE ==
--- NOTE | 2017-10-28 10:27 | XRay Report ---
RIGHT HIP, 2 views: History: Right hip pain. The bony architecture is intact without evidence of fracture or dislocation. No significant soft tissue abnormality is seen. IMPRESSION: Unremarkable right hip films.
--- NOTE | 2017-10-28 10:29 | XRay Report ---
RIGHT SHOULDER, 3 VIEWS: HISTORY: right shoulder pain. Mild to moderate osteoarthritic changes are identified which are most pronounced at the acromioclavicular joint. No evidence for fracture, dislocation or bone lesion. Calcific tendinitis of the distal supraspinatus tendon is suspected. Moderate acromial spur. Right IJ dual-lumen venous catheter is partially imaged. The visualized right lung is unremarkable. IMPRESSION: Degenerative findings as described. No acute process.
== END 2017-10-28 09:10 | disposition home or self-care (01) ==
LOC: XRAY 09:09
PROVIDERS: ATTEND Internal Medicine Nephrology
DX: M25.511 Pain in right shoulder (principal); M25.551 Pain in right hip; I13.2 Hypertensive heart and chronic kidney disease with heart failure and with stage 5 chronic kidney disease, or end stage renal disease; E11.22 Type 2 diabetes mellitus with diabetic chronic kidney disease; N18.6 End stage renal disease; I50.20 Unspecified systolic (congestive) heart failure; D63.8 Anemia in other chronic diseases classified elsewhere; E11.21 Type 2 diabetes mellitus with diabetic nephropathy; E78.5 Hyperlipidemia, unspecified; F32.9 Major depressive disorder, single episode, unspecified

== ENCOUNTER 2017-11-06 12:10 | Inpatient (IN) | payer MEDICARE ==
[2017-11-06 15:40] LABS: Hematocrit 34.9 % (35.5-45.6); Hemoglobin 11.3 gm/dl (11.8-15.2); Mean Corpuscular HGB Conc 32 % (32-34); Mean Corpuscular Hemoglobin 27 pg (28-32); Mean Corpuscular Volume 82 fl (84-94); Platelet Count 150 K/mm3 (140-440); Red Blood Count 4.23 M/mm3 (3.65-5.03)
--- NOTE | 2017-11-06 15:41 | XRay Report ---
PORTABLE CHEST INDICATION: Chest pain. COMPARISON: 09/07/2017 FINDINGS: Portable, frontal chest radiograph again demonstrates right mid to lower lung opacity, representing fluid/consolidation with obscured right hemidiaphragm. Subtle left lateral costophrenic angle blunting/fluid also now seen. Stable cardiomediastinal silhouette/possible cardiomegaly. Left coronary calcification/stents, left axillary surgical clips and a right sided dual lumen catheter tip about the cavoatrial junction again noted. Intact bones. CONCLUSION: Minimal new left pleural effusion also now suspected in this patient with stable right lung base opacity and few other iatrogenic changes, as described. Please correlate. Thank you for the opportunity to participate in this patient's care.
[2017-11-06 15:42] LABS: Basophils % (Auto) 1.7 % (0.0-1.8); Eosinophils % (Auto) 4.5 % (0.0-4.3); Monocytes % (Auto) 11.6 % (0.0-7.3); Red Cell Distribution Width 21.7 % (13.2-15.2)
[2017-11-06 15:43] LABS: Basophils # (Auto) 0.1 K/mm3 (0.0-0.1); Eosinophils # (Auto) 0.2 K/mm3 (0.0-0.4); Lymphocytes # (Auto) 1.3 K/mm3 (1.2-5.4); Monocytes # (Auto) 0.6 K/mm3 (0.0-0.8)
[2017-11-06 15:46] LABS: INR 1.25 (0.87-1.13)
[2017-11-06 15:47] LABS: Partial Thromboplastin Time 30.6 Sec. (24.2-36.6)
--- NOTE | 2017-11-06 15:53 | Emergency Department Report ---
HPI - General Chief Complaint: Pain General Time Seen by Provider: 11/06/17 14:55 - HPI HPI: 72-year-old -[place] male presents to the emergency department with 2 complaints. First, the patient says that he has an infected right chest permacath. He called [facility] vascular and spoke to someone in the office who told him to come to the emergency department for further evaluation. He has end -stage renal disease on hemodialysis on Friday/Friday/Friday and did not completely finish his dialysis session yesterday secondary to this concern for infected chest port. His management trainee marketing is Dr. Mason. Secondly, the patient had a fall this morning and has some pain over his left hip, more towards the flank. He has a prosthetic left leg and was sitting on a stool that slipped out from underneath him. He denies hitting his head or any loss of consciousness. He also has a past medical history of diabetes, coronary artery disease, hypertension, asthma. His vascular surgeon is Dr. Huitron and his PCP is Dr Abby Agustin. ED Past Medical Hx - Past Medical History Hx Hypertension: Yes Hx Heart Attack/AMI: Yes Hx Congestive Heart Failure: No Hx Diabetes: Yes Hx Renal Disease: Yes (HD MWF) Hx Arthritis: Yes Hx Asthma: Yes Hx COPD: No - Surgical History Past Surgical History?: No Hx Coronary Stent: Yes Additional Surgical History: left AV fistula, left BKA - Social History Smoking Status: Never Smoker Substance Use Type: None - Medications Home Medications: Home Medications Medication Instructions Recorded Confirmed Last Taken Type Aspirin EC [Aspirin Enteric Coated 81 mg PO QDAY #30 tablet 07/30/17 09/07/17 Unknown Rx TAB] Acetaminophen [Acetaminophen TAB] 325 mg PO Q4H PRN #30 tablet 09/09/17 Unknown Rx AtorvaSTATin [Lipitor] 40 mg PO QHS #30 tablet 09/09/17 Unknown Rx AtorvaSTATin [Lipitor] 40 mg PO QHS #30 tablet 09/09/17 Unknown Rx Clopidogrel [Plavix] 75 mg PO QDAY #30 tablet 09/09/17 Unknown Rx FLUoxetine [PROzac] 40 mg PO QDAY #30 capsule 09/09/17 Unknown Rx Gabapentin [Neurontin] 300 mg PO BID #60 capsule 09/09/17 Unknown Rx ISOSORBIDE MONOnitrate [Imdur ER] 30 mg PO QDAY #30 tablet 09/09/17 Unknown Rx Lisinopril [Zestril TAB] 10 mg PO BID #60 tablet 09/09/17 Unknown Rx Metoprolol [Lopressor TAB] 25 mg PO BID #60 tablet 09/09/17 Unknown Rx Zolpidem [Ambien] 10 mg PO QHS PRN #10 tablet 09/09/17 Unknown Rx cloNIDine [Catapres] 0.1 mg PO BID #60 tablet 09/09/17 Unknown Rx oxyCODONE /ACETAMINOPHEN [Percocet 1 tab PO Q6H PRN #12 tablet 09/09/17 Unknown Rx 5/325 mg] ED Review of Systems ROS: Stated complaint: INFECTED DIALYSIS Other details as noted in HPI Comment: All other systems reviewed and negative Constitutional: denies: chills, fever Eyes: denies: eye pain, eye discharge, vision change ENT: denies: ear pain, throat pain Respiratory: denies: cough, shortness of breath, wheezing Cardiovascular: chest pain (right chest wall pain). denies: palpitations Gastrointestinal: denies: abdominal pain, nausea, diarrhea Genitourinary: denies: urgency, dysuria Musculoskeletal: denies: back pain, joint swelling, arthralgia Skin: denies: rash, lesions Neurological: denies: headache, weakness, paresthesias Physical Exam - Physical Exam Vital Signs: Vital Signs 11/06/17 12:14 Temperature 97.7 F Pulse Rate 71 Respiratory 18 Rate Blood Pressure 133/65 O2 Sat by Pulse 100 Oximetry Physical Exam: GENERAL: The patient is well-developed well-nourished. HENT: Normocephalic. Atraumatic. Patient has moist mucous membranes. EYES: Extraocular motions are intact. Pupils equal reactive to light bilaterally. NECK: Supple. Trachea is midline. CHEST/LUNGS: Clear to auscultation. There is no respiratory distress noted. There is a permacath to the right chest wall and there is some tenderness to palpation surrounding it. No crepitus. HEART/CARDIOVASCULAR: Regular. There is no tachycardia. There is no murmur. ABDOMEN: Abdomen is soft, nontender. Patient has normal bowel sounds. There is no abdominal distention. SKIN: Skin is warm and dry. There is some mild erythema surrounding the right tunneled permacath. NEURO: The patient is awake, alert, and oriented. The patient is cooperative. The patient has no focal neurologic deficits. The patient has normal speech. MUSCULOSKELETAL: There is no tenderness or deformity. There is a left lower extremity prosthesis. There is no evidence of acute injury. Left upper extremity AV fistula appears patent. ED Course Vital Signs 11/06/17 12:14 Temperature 97.7 F Pulse Rate 71 Respiratory 18 Rate Blood Pressure 133/65 O2 Sat by Pulse 100 Oximetry - Consultations Consultation #1: I've spoken with [facility] vascular who will come and see the patient regarding the chest port infection and/or removal. I spoke with Dr. Owens, management trainee marketing director of investigations for Dr. Mason, who says that the patient will receive dialysis first thing in the morning and it is okay to proceed with the hyperkalemia cocktail. 11/06/17 19:13 ED Medical Decision Making - Lab Data Result diagrams: 11/06/17 15:21 11/06/17 15:21 - EKG Data -: EKG Interpreted by Me EKG shows normal: sinus rhythm (accelerated junctional rhythm), axis (right axis deviation), intervals (prolonged QT interval), QRS complexes (right bundle branch block, Q waves in the inferior leads), ST-T waves Rate: normal - EKG Data When compared to previous EKG there are: no significant change Interpretation: unchanged when compared t (09/08/17) - Radiology Data Radiology results: report reviewed PORTABLE CHEST INDICATION: Chest pain. COMPARISON: 09/07/2017 FINDINGS: Portable, frontal chest radiograph again demonstrates right mid to lower lung opacity, representing fluid/consolidation with obscured right hemidiaphragm. Subtle left lateral costophrenic angle blunting/fluid also now seen. Stable cardiomediastinal silhouette/possible cardiomegaly. Left coronary calcification/stents, left axillary surgical clips and a right sided dual lumen catheter tip about the cavoatrial junction again noted. Intact bones. CONCLUSION: Minimal new left pleural effusion also now suspected in this patient with stable right lung base opacity and few other iatrogenic changes, as described. Please correlate. Thank you for the opportunity to participate in this patient's care. Transcribed By: RS Dictated By: NICKY EPPS MD Electronically Authenticated By: NICKY EPPS MD Signed Date/Time: 11/06/17 9542 - Medical Decision Making Patient presents with the complaint of an infected right chest port and the fact that he did not complete dialysis yesterday. Patient is afebrile and there is no leukocytosis. He does have hyperkalemia with potassium of 6.4. He was given albuterol, insulin, calcium and Kayexalate. The vascular physicians came and removed the chest port and sent the tip for culture. Blood cultures were obtained as well and the patient was started empirically on vancomycin. Nephrology has been contacted and the patient will get dialysis forcing the morning. EKG did not show any signs of ST elevation [place] or any hyperacute T waves secondary to the hyperkalemia. Vital signs stable throughout his ED course. The patient will be admitted to the hospitalist, Dr. Rodriguez, was given permission to place bridging orders for med surge with remote telemetry. - Differential Diagnosis hyperkalemia, sepsis, [place], infected port Critical Care Time: No Critical care attestation.: If time is entered above; I have spent that time in minutes in the direct care of this critically ill patient, excluding procedure time. ED Disposition Clinical Impression: Hyperkalemia, ESRD (end stage renal disease) on dialysis Infected venous access port Qualifiers: Encounter type: initial encounter Qualified Code(s): T80.219A - Unspecified infection due to central venous catheter, initial encounter Disposition: OP ADMIT IP TO THIS HOSP Is pt being admited?: Yes Condition: Fair Referrals: PRIMARY CARE, [Primary Care Provider] - 3-5 Days Time of Disposition: 18:04
[2017-11-06 16:00] LABS: Albumin 4.2 g/dL (3.9-5); Calcium 8.3 mg/dL (8.4-10.2)
[2017-11-06] MEDS ORDERED: PROVENTIL IH ONE (16:50)
[2017-11-06] MEDS ORDERED: HumuLIN R IV ONE (16:51)
[2017-11-06] MEDS ORDERED: D50W (25GM) Syringe IV ONE (16:51)
[2017-11-06] MEDS ORDERED: KIONEX PO ONE (17:32)
--- NOTE | 2017-11-06 17:40 | Consultation ---
History of Present Illness - Reason for Consult Consult date: 11/06/17 infected PermCath - History of Present Illness Patient with a history of end-stage renal disease on hemodialysis. His headache right chest wall tunneled hemodialysis catheter since May. Currently initiating dialysis through a left upper arm AV graft. Patient complains of a one-week worsening history of erythema and peroneal discharge at the catheter exit site with associated pain. He describes a mild fever and chills associated with this. Past History Past Medical History: dialysis, ESRD Past Surgical History: Other (multiple upper arm AV fistulas and grafts) Social history: , lives with family Family history: no significant family history Medications and Allergies Allergies Allergy/AdvReac Type Severity Reaction Status Date / Time No Known Allergies Allergy Verified 11/06/17 12:21 Home Medications Medication Instructions Recorded Confirmed Last Taken Type Aspirin EC [Aspirin Enteric Coated 81 mg PO QDAY #30 tablet 07/30/17 09/07/17 Unknown Rx TAB] Acetaminophen [Acetaminophen TAB] 325 mg PO Q4H PRN #30 tablet 09/09/17 Unknown Rx AtorvaSTATin [Lipitor] 40 mg PO QHS #30 tablet 09/09/17 Unknown Rx AtorvaSTATin [Lipitor] 40 mg PO QHS #30 tablet 09/09/17 Unknown Rx Clopidogrel [Plavix] 75 mg PO QDAY #30 tablet 09/09/17 Unknown Rx FLUoxetine [PROzac] 40 mg PO QDAY #30 capsule 09/09/17 Unknown Rx Gabapentin [Neurontin] 300 mg PO BID #60 capsule 09/09/17 Unknown Rx ISOSORBIDE MONOnitrate [Imdur ER] 30 mg PO QDAY #30 tablet 09/09/17 Unknown Rx Lisinopril [Zestril TAB] 10 mg PO BID #60 tablet 09/09/17 Unknown Rx Metoprolol [Lopressor TAB] 25 mg PO BID #60 tablet 09/09/17 Unknown Rx Zolpidem [Ambien] 10 mg PO QHS PRN #10 tablet 09/09/17 Unknown Rx cloNIDine [Catapres] 0.1 mg PO BID #60 tablet 09/09/17 Unknown Rx oxyCODONE /ACETAMINOPHEN [Percocet 1 tab PO Q6H PRN #12 tablet 09/09/17 Unknown Rx 5/325 mg] Active Meds: Active Medications Calcium Gluconate 1,000 mg/ (Sodium Chloride) 110 mls @ 660 mls/hr IV ONCE ONE Stop: 11/06/17 18:01 Review of Systems All systems: negative Exam - Constitutional Vitals: Temp Pulse Resp BP Pulse Ox 97.7 F 71 18 133/65 100 11/06/17 12:14 11/06/17 12:14 11/06/17 12:14 11/06/17 12:14 11/06/17 12:14 General appearance: Present: no acute distress - EENT Eyes: Present: PERRL, EOM intact ENT: hearing intact - Neck Neck: Present: supple, other (minimal purulent discharge and erythema at the catheter exit site) - Respiratory Respiratory effort: normal - Cardiovascular Rhythm: regular - Extremities Extremities: no ischemia, abnormal Extremity abnormal: edema - Abdominal General gastrointestinal: Present: deferred Male genitourinary: Present: deferred - Rectal Rectal Exam: deferred - Psychiatric Psychiatric: appropriate mood/affect, cooperative - Neurologic Neurologic: no focal deficits Results - Labs CBC & Chem 7: 11/06/17 15:21 11/06/17 15:21 Labs: Abnormal lab results 11/06/17 11/06/17 11/06/17 Range/Units 15:21 15:21 15:21 Hgb 11.3 L (11.8-15.2) gm/dl Hct 34.9 L (35.5-45.6) % MCV 82 L (84-94) fl MCH 27 L (28-32) pg RDW 21.7 H (13.2-15.2) % [place] % (Auto) 11.6 H (0.0-7.3) % Eos % (Auto) 4.5 H (0.0-4.3) % PT 16.4 H (12.2-14.9) Sec. INR 1.25 H (0.87-1.13) Potassium 6.4 H* (3.6-5.0) mmol/L Chloride 94.4 L (98-107) mmol/L BUN 89 H (9-20) mg/dL Creatinine 10.6 H (0.8-1.5) mg/dL Glucose 121 H (75-100) mg/dL Calcium 8.3 L (8.4-10.2) mg/dL Alkaline Phosphatase 183 H (35-129) units/L Total Protein 8.6 H (6.3-8.2) g/dL Assessment and Plan Patient with a history of end-stage renal disease on hemodialysis with an infected right chest wall PermCath. The PermCath will be removed. Patient will need to be admitted and started on antibiotics.
--- NOTE | 2017-11-06 17:42 | Operative Report ---
Operative Report Operative Report: Exam: Right chest wall tunneled hemodialysis catheter removal. Clinical indication: Infected right chest wall tunneled hemodialysis catheter Date: 11/06/2017 Procedure: Following an excellent addition of the risks, benefits and alternatives; informed consent was obtained. The procedure was performed at bedside in the emergency department. Patient's indwelling tunneled hemodialysis catheter was inspected and demonstrated erythema around the catheter exit site and minimal exudates. The catheter tract was tender to palpation. The suture was clipped and the catheter removed intact. The tip was sent for culture. Hemostasis was achieved using manual compression. A sterile dressing was then applied. Patient tolerated the procedure well. There were no immediate post procedure complications. Impression: 1) Right chest wall tunneled hemodialysis catheter with tip sent for culture
[2017-11-06] MEDS ORDERED: CALCIUM GLUCONATE 1,000 MG in NACL 0.9% 100 ML IV ONE (17:52)
[2017-11-06] MEDS ORDERED: VANCOMYCIN 1,250 MG in NACL 0.9% 500 ML 500 ML IV ONE (19:00)
[2017-11-06] MEDS ORDERED: AMBIEN PO PRN (22:31)
--- NOTE | 2017-11-06 22:31 | History and Physical Report ---
History of Present Illness Date of examination: 11/06/17 Date of admission: 11/06/17 18:06 Chief complaint: CC Infected Permacath 1 day History of present illness: THEODORA 72-year-old -[place] male presents to the emergency department with an infected right chest permacath. He called [facility] and spoke to someone in the office who told him to come to the emergency department for further evaluation. He has end-stage renal disease on hemodialysis on Friday/ Friday/Friday and did not completely finish his dialysis session yesterday secondary to this concern for infected chest port. His progress developer is Dr. Mason. Secondly, the patient had a fall this morning and has some pain over his left hip, more towards the flank. He has a prosthetic left leg and was sitting on a stool that slipped out from underneath him. He denies hitting his head or any loss of consciousness. He also has a past medical history of diabetes, coronary artery disease, hypertension, asthma. His vascular surgeon is Dr. Huitron and his PCP is Dr Abby Agustin. Past Medical History Hx Hypertension: Yes Hx Heart Attack/AMI: Yes Hx Congestive Heart Failure: No Hx Diabetes: Yes Hx Renal Disease: Yes (HD MWF) Hx Arthritis: Yes Hx Asthma: Yes Surgical History Past Surgical History?: No Hx Coronary Stent: Yes Additional Surgical History: left AV fistula, left BKA Social History Smoking Status: Never Smoker Substance Use Type: None Family Hx Htn Medications Home Medications: Home Medications Medication Instructions Recorded Confirmed Last Taken Type Aspirin EC [Aspirin Enteric Coated 81 mg PO QDAY #30 tablet 07/30/17 09/07/17 Unknown Rx TAB] Acetaminophen [Acetaminophen TAB] 325 mg PO Q4H PRN #30 tablet 09/09/17 Unknown Rx AtorvaSTATin [Lipitor] 40 mg PO QHS #30 tablet 09/09/17 Unknown Rx AtorvaSTATin [Lipitor] 40 mg PO QHS #30 tablet 09/09/17 Unknown Rx Clopidogrel [Plavix] 75 mg PO QDAY #30 tablet 09/09/17 Unknown Rx FLUoxetine [PROzac] 40 mg PO QDAY #30 capsule 09/09/17 Unknown Rx Gabapentin [Neurontin] 300 mg PO BID #60 capsule 09/09/17 Unknown Rx ISOSORBIDE MONOnitrate [Imdur ER] 30 mg PO QDAY #30 tablet 09/09/17 Unknown Rx Lisinopril [Zestril TAB] 10 mg PO BID #60 tablet 09/09/17 Unknown Rx Metoprolol [Lopressor TAB] 25 mg PO BID #60 tablet 09/09/17 Unknown Rx Zolpidem [Ambien] 10 mg PO QHS PRN #10 tablet 09/09/17 Unknown Rx cloNIDine [Catapres] 0.1 mg PO BID #60 tablet 09/09/17 Unknown Rx oxyCODONE /ACETAMINOPHEN [Percocet 1 tab PO Q6H PRN #12 tablet 09/09/17 Unknown Rx 5/325 mg] ED Review of Systems ROS: Stated complaint: INFECTED DIALYSIS Other details as noted in HPI Comment: All other systems reviewed and negative Constitutional: denies: chills, fever Eyes: denies: eye pain, eye discharge, vision change ENT: denies: ear pain, throat pain Respiratory: denies: cough, shortness of breath, wheezing Cardiovascular: chest pain (right chest wall pain). denies: palpitations Gastrointestinal: denies: abdominal pain, nausea, diarrhea Genitourinary: denies: urgency, dysuria Musculoskeletal: denies: back pain, joint swelling, arthralgia Skin: denies: rash, lesions Neurological: denies: headache, weakness, paresthesias Past History Past Medical History: dialysis, ESRD Past Surgical History: Other (multiple upper arm AV fistulas and grafts) Social history: , lives with family Family history: no significant family history Medications and Allergies Allergies Allergy/AdvReac Type Severity Reaction Status Date / Time No Known Allergies Allergy Verified 11/06/17 12:21 Home Medications Medication Instructions Recorded Confirmed Last Taken Type Acetaminophen [Acetaminophen TAB] 325 mg PO Q4H PRN #30 tablet 09/09/17 10:00 Rx Zolpidem [Ambien] 10 mg PO QHS PRN #10 tablet 09/09/17 11/05/17 22:00 Rx Aspirin EC [Aspirin Enteric Coated 81 mg PO QDAY 11/06/17 11/06/17 11/05/17 10: 00 History TAB] AtorvaSTATin [Lipitor] 40 mg PO QHS 11/06/17 11/06/17 11/05/17 22:00 History Clopidogrel [Plavix] 75 mg PO QDAY 11/06/17 11/06/17 11/05/17 10:00 History FLUoxetine [PROzac] 40 mg PO QDAY 11/06/17 11/06/17 11/05/17 10:00 History Gabapentin [Neurontin] 600 mg PO BID 11/06/17 11/06/17 11/05/17 22:00 History ISOSORBIDE MONOnitrate [Imdur ER] 30 mg PO QDAY 11/06/17 11/06/17 11/05/17 10: 00 History Lisinopril [Zestril TAB] 10 mg PO BID 11/06/17 11/06/17 11/05/17 22:00 History Metoprolol [Lopressor TAB] 25 mg PO BID MDD BLOOD PRESSURE 11/06/17 11/06/1704/24 22:00 History cloNIDine [Catapres] 0.1 mg PO BID 11/06/17 11/06/17 11/05/17 22:00 History oxyCODONE /ACETAMINOPHEN [Percocet 10 mg PO Q6H PRN 11/06/17 11/06/17 11/05/17 22:00 History 5/325 mg] Exam - Constitutional Vitals: Temp Pulse Resp BP Pulse Ox 97.6 F 82 18 145/76 98 11/06/17 20:46 11/06/17 20:46 11/06/17 20:46 11/06/17 20:46 11/06/17 20:46 General appearance: Present: no acute distress, well-nourished - EENT Eyes: Present: PERRL ENT: hearing intact, clear oral mucosa - Neck Neck: Present: supple, normal ROM - Respiratory Respiratory effort: normal Respiratory: bilateral: CTA - Cardiovascular Heart Sounds: Present: S1 & S2. Absent: rub, click - Extremities Extremities: pulses symmetrical, No edema Extremity abnormal: other (Rt BKA) Peripheral Pulses: within normal limits - Abdominal General gastrointestinal: Present: soft, non-tender, non-distended, normal bowel sounds Male genitourinary: Present: normal - Integumentary Integumentary: Present: clear, warm, dry - Musculoskeletal Musculoskeletal: gait normal, strength equal bilaterally - Psychiatric Psychiatric: appropriate mood/affect, intact judgment & insight - Neurologic Neurologic: CNII-XII intact, moves all extremities Results - Labs CBC & Chem 7: 11/07/17 04:28 11/07/17 04:28 Labs: Laboratory Last Values WBC 4.9 K/mm3 (4.5-11.0) 11/06/17 15:21 RBC 4.23 M/mm3 (3.65-5.03) 11/06/17 15:21 Hgb 11.3 gm/dl (11.8-15.2) L 11/06/17 15:21 Hct 34.9 % (35.5-45.6) L 11/06/17 15:21 MCV 82 fl (84-94) L 11/06/17 15:21 MCH 27 pg (28-32) L 11/06/17 15:21 MCHC 32 % (32-34) 11/06/17 15:21 RDW 21.7 % (13.2-15.2) H 11/06/17 15:21 Plt Count 150 K/mm3 (140-440) 11/06/17 15:21 Lymph % (Auto) 26.0 % (13.4-35.0) 11/06/17 15:21 [facility] % (Auto) 11.6 % (0.0-7.3) H 11/06/17 15:21 Eos % (Auto) 4.5 % (0.0-4.3) H 11/06/17 15:21 Baso % (Auto) 1.7 % (0.0-1.8) 11/06/17 15:21 Lymph # 1.3 K/mm3 (1.2-5.4) 11/06/17 15:21 [facility] # 0.6 K/mm3 (0.0-0.8) 11/06/17 15:21 Eos # 0.2 K/mm3 (0.0-0.4) 11/06/17 15:21 Baso # 0.1 K/mm3 (0.0-0.1) 11/06/17 15:21 Seg Neutrophils % 56.2 % (40.0-70.0) 11/06/17 15:21 Seg Neutrophils # 2.8 K/mm3 (1.8-7.7) 11/06/17 15:21 PT 16.4 Sec. (12.2-14.9) H 11/06/17 15:21 INR 1.25 (0.87-1.13) H 11/06/17 15:21 APTT 30.6 Sec. (24.2-36.6) 11/06/17 15:21 Sodium 138 mmol/L (137-145) 11/06/17 15:21 Potassium 6.4 mmol/L (3.6-5.0) H* 11/06/17 15:21 Chloride 94.4 mmol/L (98-107) L 11/06/17 15:21 Carbon Dioxide 24 mmol/L (22-30) 11/06/17 15:21 Anion Gap 26 mmol/L 11/06/17 15:21 BUN 89 mg/dL (9-20) H 11/06/17 15:21 Creatinine 10.6 mg/dL (0.8-1.5) H 11/06/17 15:21 Estimated GFR 6 ml/min 11/06/17 15:21 BUN/Creatinine Ratio 8 % 11/06/17 15:21 Glucose 121 mg/dL (75-100) H 11/06/17 15:21 POC Glucose 76 (70-105) 11/06/17 21:58 Calcium 8.3 mg/dL (8.4-10.2) L 11/06/17 15:21 Total Bilirubin 0.50 mg/dL (0.1-1.2) 11/06/17 15:21 AST 27 units/L (5-40) 11/06/17 15:21 ALT 17 units/L (7-56) 11/06/17 15:21 Alkaline Phosphatase 183 units/L (35-129) H 11/06/17 15:21 Total Protein 8.6 g/dL (6.3-8.2) H 11/06/17 15:21 Albumin 4.2 g/dL (3.9-5) 11/06/17 15:21 Albumin/Globulin Ratio 1.0 % 11/06/17 15:21 - Imaging and Cardiology EKG: report reviewed Assessment and Plan Advance Directives: Yes (Full code) VTE prophylaxis?: Chemical Plan of care discussed with patient/family: Yes - Patient Problems (1) Infected venous access port Current Visit: Yes Status: Acute Qualifiers: Encounter type: initial encounter Qualified Code(s): T80.219A - Unspecified infection due to central venous catheter, initial encounter Plan to address problem: Permacath removed Initiated on IV abx --Zosyn and Vancomycin pending cultures (2) Hyperkalemia Current Visit: Yes Status: Acute Plan to address problem: For HD Was given INsulin/Dextroe and Kayexalate in ED (3) ESRD (end stage renal disease) on dialysis Current Visit: Yes Status: Chronic Plan to address problem: Cont HD Patient has AVF (4) Anemia of chronic disease Current Visit: No Status: Chronic (5) HTN (hypertension) Current Visit: Yes Status: Chronic Qualifiers: Hypertension type: essential hypertension Qualified Code(s): I10 - Essential (primary) hypertension Plan to address problem: Cont antihypertensives (6) T2DM (type 2 diabetes mellitus) Current Visit: Yes Status: Chronic Qualifiers: Diabetes mellitus halfway insulin use: without local intermodal truck driver use Plan to address problem: Cont coverage (7) HLD (hyperlipidemia) Current Visit: Yes Status: Chronic Qualifiers: Hyperlipidemia type: mixed hyperlipidemia Qualified Code(s): E78.2 - Mixed hyperlipidemia Plan to address problem: Cont statins (8) Depression Current Visit: Yes Status: Chronic Qualifiers: Depression Type: unspecified Qualified Code(s): F32.9 - Major depressive disorder, single episode, unspecified Plan to address problem: Cont Fluoxetine (9) Peripheral neuropathy Current Visit: Yes Status: Chronic Qualifiers: Peripheral neuropathy type: polyneuropathy, unspecified Qualified Code(s): G62.9 - Polyneuropathy, unspecified Plan to address problem: Cont Gabapentin (10) CAD (coronary artery disease) Current Visit: Yes Status: Chronic Qualifiers: Coronary Disease-Associated Artery/Lesion type: [place] artery [place] vs. transplanted heart: [place] heart (11) DVT prophylaxis Current Visit: Yes Status: Acute Plan to address problem: On Heparin
[2017-11-06] MEDS ORDERED: MORPHINE IV PRN (22:33)
[2017-11-06] MEDS ORDERED: SODIUM CHLORIDE FLUSH SYRINGE 10 ML IV PRN (22:33)
[2017-11-06] MEDS ORDERED: ZOFRAN IV PRN (22:33)
[2017-11-06] MEDS ORDERED: TYLENOL PO PRN (22:33)
[2017-11-06] MEDS ORDERED: ZOSYN/NS 4.5GM/100ML 4.5 GM/100 ML VIAL IV SCH (23:00)
[2017-11-06] MEDS ORDERED: VANCOMYCIN PHARMACY TO DOSE IV SCH (23:00)
[2017-11-06] MEDS: LOPRESSOR PO SCH (23:11)
[2017-11-06] MEDS: NEURONTIN PO SCH (23:12)
[2017-11-06] MEDS: CATAPRES PO SCH (23:12)
[2017-11-06] MEDS: ZESTRIL PO SCH (23:13)
[2017-11-06] MEDS: PERCOCET 5/325 PO PRN (23:14)
[2017-11-07] MEDS: ZOSYN/NS 2.25 GM/50ML 2.25 GM/50 ML BAG IV SCH ×2 (00:06→05:25)
[2017-11-07] MEDS: PERCOCET 5/325 PO PRN ×3 (05:42→21:50)
[2017-11-07 06:02] LABS: Basophils % (Auto) 0.9 % (0.0-1.8); Eosinophils # (Auto) 0.2 K/mm3 (0.0-0.4); Eosinophils % (Auto) 3.2 % (0.0-4.3); Hematocrit 30.6 % (35.5-45.6); Lymphocytes # (Auto) 0.6 K/mm3 (1.2-5.4); Lymphocytes % (Auto) 11.6 % (13.4-35.0); Mean Corpuscular HGB Conc 33 % (32-34); Mean Corpuscular Hemoglobin 27 pg (28-32); Mean Corpuscular Volume 82 fl (84-94); Monocytes # (Auto) 0.6 K/mm3 (0.0-0.8); Monocytes % (Auto) 12.1 % (0.0-7.3); Platelet Count 131 K/mm3 (140-440); Red Blood Count 3.73 M/mm3 (3.65-5.03)
[2017-11-07] MEDS ORDERED: HEPARIN 10,000 UNITS/10 ML IV PRN (06:12)
[2017-11-07] MEDS ORDERED: NACL 0.9% 100 ML IV PRN (06:12)
[2017-11-07 06:19] LABS: Red Cell Distribution Width 21.7 % (13.2-15.2)
[2017-11-07 06:45] LABS: Calcium 8.3 mg/dL (8.4-10.2)
--- NOTE | 2017-11-07 10:27 | Consultation ---
History of Present Illness - Reason for Consult Consult date: 11/07/17 end stage renal disease - History of Present Illness Pleasant 72 y/o male, well known to our practice, with h/o ESRD in the setting of HTN and Diabetes, presented to the ER instructed by his vascular surgeon secondary to worsening erythem and purlulen discharge from permcath site. Concern for infected permcath, and patient had catheter removed in the ED last night. He has has a LUE AVG that i confirmed with the dialysis unit he has been using without any issues over the last week. He is asymptomatic otherwise and is doing well. Has been started on antibiotic therapy. He is due for his HD session today as he is on a MWF schedule. His last session was Friday. Labs overnight indicated hyperkalemia. His EDW is 81.5 kg. Past History Past Medical History: dialysis, ESRD Past Surgical History: Other (multiple upper arm AV fistulas and grafts) Social history: , lives with family Family history: no significant family history Medications and Allergies Allergies Allergy/AdvReac Type Severity Reaction Status Date / Time No Known Allergies Allergy Verified 11/06/17 12:21 Home Medications Medication Instructions Recorded Confirmed Last Taken Type Acetaminophen [Acetaminophen TAB] 325 mg PO Q4H PRN #30 tablet 09/09/17 10:00 Rx Zolpidem [Ambien] 10 mg PO QHS PRN #10 tablet 09/09/17 11/05/17 22:00 Rx Aspirin EC [Aspirin Enteric Coated 81 mg PO QDAY 11/06/17 11/06/17 11/05/17 10: 00 History TAB] AtorvaSTATin [Lipitor] 40 mg PO QHS 11/06/17 11/06/17 11/05/17 22:00 History Clopidogrel [Plavix] 75 mg PO QDAY 11/06/17 11/06/17 11/05/17 10:00 History FLUoxetine [PROzac] 40 mg PO QDAY 11/06/17 11/06/17 11/05/17 10:00 History Gabapentin [Neurontin] 600 mg PO BID 11/06/17 11/06/17 11/05/17 22:00 History ISOSORBIDE MONOnitrate [Imdur ER] 30 mg PO QDAY 11/06/17 11/06/17 11/05/17 10: 00 History Lisinopril [Zestril TAB] 10 mg PO BID 11/06/17 11/06/17 11/05/17 22:00 History Metoprolol [Lopressor TAB] 25 mg PO BID MDD BLOOD PRESSURE 11/06/17 11/06/1704/24 22:00 History cloNIDine [Catapres] 0.1 mg PO BID 11/06/17 11/06/17 11/05/17 22:00 History oxyCODONE /ACETAMINOPHEN [Percocet 10 mg PO Q6H PRN 11/06/17 11/06/17 11/05/17 22:00 History 5/325 mg] Active Meds: Active Medications Acetaminophen (Tylenol) 650 mg PO Q4H PRN PRN Reason: Pain MILD(1-3)/Fever >100.5/GARCIA Aspirin (Halfprin Ec) 81 mg PO QDAY [facility] Atorvastatin Calcium (Lipitor) 40 mg PO QHS [facility] Clonidine HCl (Catapres) 0.1 mg PO BID [facility] Last Admin: 11/06/17 23:12 Dose: 0.1 mg Clopidogrel Bisulfate (Plavix) 75 mg PO QDAY [facility] Famotidine (Pepcid) 10 mg PO BID [facility] Fluoxetine HCl (Prozac) 40 mg PO QDAY [facility] Gabapentin (Neurontin) 600 mg PO BID [facility] Last Admin: 11/06/17 23:12 Dose: 600 mg Heparin Sodium (Porcine) (Heparin 10,000 Units/10 Ml) 1,000 unit IV SHY PRN PRN Reason: hemodialysis Piperacillin Sod/Tazobactam Sod (Zosyn/Ns 2.25 Gm/50ml) 2.25 gm in 50 mls @ 100 mls/hr IV Q8HR [facility]; Protocol Last Admin: 11/07/17 05:25 Dose: 100 mls/hr Sodium Chloride (Nacl 0.9%) 100 mls @ 999 mls/hr IV SHY PRN PRN Reason: Hypotension Isosorbide Mononitrate (Imdur) 30 mg PO QDAY [facility] Lisinopril (Zestril) 10 mg PO BID [facility] Last Admin: 11/06/17 23:13 Dose: 10 mg Metoprolol Tartrate (Lopressor) 25 mg PO BID [facility] Last Admin: 11/06/17 23:11 Dose: 25 mg Morphine Sulfate (Morphine) 2 mg IV Q4H PRN PRN Reason: Pain, Moderate (4-6) Ondansetron HCl (Zofran) 4 mg IV Q8H PRN PRN Reason: Nausea And Vomiting Oxycodone/Acetaminophen (Percocet 5/325) 2 tab PO Q6H PRN PRN Reason: Pain , Severe (7-10) Last Admin: 11/07/17 05:42 Dose: 2 tab Sodium Chloride (Sodium Chloride Flush Syringe 10 Ml) 10 ml IV BID [facility] Sodium Chloride (Sodium Chloride Flush Syringe 10 Ml) 10 ml IV PRN PRN PRN Reason: LINE FLUSH Vancomycin HCl (Vancomycin Pharmacy To Dose) 1 each IV PKCONSULT ROBB; Protocol Zolpidem Tartrate (Ambien) 10 mg PO QHS PRN PRN Reason: Insomnia Review of Systems All systems: negative Cardiovascular: other (chest wall tenderness around site of RIJ permacath ) Integumentary: redness (around area of permacath) Exam - Vital Signs Vital signs: Vital Signs Temp Pulse Resp BP Pulse Ox 97.7 F 71 18 133/65 100 11/06/17 12:14 11/06/17 12:14 11/06/17 12:14 11/06/17 12:14 11/06/17 12:14 - General Appearance General appearance: well-developed, well-nourished, appears stated age EENT: PERRL, mucous membranes moist Neck: Present: neck supple, trachea midline Respiratory: Clear to Ascultation, Normal Exam Heart: regular, normal heart rate, S1S2, no murmurs Gastrointestinal: Present: normal, normoactive bowel sounds Integumentary: no rash, warm and dry Neurologic: no focal deficit, no asterixis, alert and oriented x3, gait normal Psychiatric: mood/affect appropriate Results - Lab Results 11/07/17 04:28 11/07/17 04:28 Most recent lab results Calcium 8.3 mg/dL (8.4-10.2) L 11/07/17 04:28 Assessment and Plan - Patient Problems (1) ESRD (end stage renal disease) on dialysis Current Visit: Yes Status: Chronic Plan to address problem: Plan for his HD sessin today via his LUE AVG Will run on a 2 K bath, with UF goal 2-3L as tolerated to maintain his EDW. (2) Infected venous access port Current Visit: Yes Status: Acute Qualifiers: Encounter type: initial encounter Qualified Code(s): T80.219A - Unspecified infection due to central venous catheter, initial encounter Plan to address problem: Patient has been started on IV antibiotic therapy as an inpatient. Empiric antibiotic therapy can be continued until final blood culture results. Cultures are in progress and need to follow. Infected catheter was removed. Patient is hemodynamically stable, he is not toxic appearing and afebrile. (3) Hyperkalemia Current Visit: Yes Status: Acute Plan to address problem: Potassium levels noted to be elevated. Expressed to him the importance of low potassium/renal diet Will run on a 2K bath with HD. (4) HTN (hypertension) Current Visit: Yes Status: Chronic Qualifiers: Hypertension type: essential hypertension Qualified Code(s): I10 - Essential (primary) hypertension Plan to address problem: Favor to continue his outpatient blood pressure regimen at this time. (5) T2DM (type 2 diabetes mellitus) Current Visit: Yes Status: Chronic Qualifiers: Diabetes mellitus manager terminal insulin use: without longterm use Plan to address problem: Diabetic treatment per primary team. (6) Anemia of chronic disease Current Visit: No Status: Chronic Plan to address problem: Epo with HD sessions. Goal of 10-11.5.
[2017-11-07] MEDS ORDERED: NACL 0.9 (PRIMING MACHINE ONLY DIALYSIS) MC ONE (10:56)
[2017-11-07] MEDS: LOPRESSOR PO SCH ×2 (11:26→21:34)
[2017-11-07] MEDS: HALFPRIN EC PO SCH (11:26)
[2017-11-07] MEDS: CATAPRES PO SCH ×2 (11:26→21:35)
[2017-11-07] MEDS: IMDUR PO SCH (11:26)
[2017-11-07] MEDS: NEURONTIN PO SCH ×2 (11:27→21:34)
[2017-11-07] MEDS: PLAVIX PO SCH (11:27)
[2017-11-07] MEDS: PEPCID PO SCH ×2 (11:27→21:35)
[2017-11-07] MEDS: PROzac PO SCH (11:27)
[2017-11-07] MEDS: SODIUM CHLORIDE FLUSH SYRINGE 10 ML IV SCH (11:28)
[2017-11-07] MEDS: ZESTRIL PO SCH ×2 (11:28→21:34)
--- NOTE | 2017-11-07 13:27 | Progress Note ---
Assessment and Plan 72-year-old male with right upper extremity tunnel infection of PermCath requiring removal. Patient has functioning left upper extremity AV graft. No need for further catheter placement. Recommend infectious disease consultation for tunnel infection. Vascular signing off. Subjective Date of service: 11/07/17 Principal diagnosis: Infected permcath Interval history: Patient has functioning left arm AVG actively being dialyzed. The technologist reported no issues with access of the graft. The patient feels better. His right neck and chest is no longer painful. No further drainage. Objective - Constitutional Vitals: Vital Signs - 12hr 11/07/17 11/07/17 11/07/17 05:42 06:07 06:42 Temperature 98.3 F Pulse Rate 70 Respiratory 18 16 17 Rate Blood Pressure 121/83 O2 Sat by Pulse 100 Oximetry 11/07/17 11/07/17 11/07/17 10:20 10:45 11:00 Temperature 97.8 F Pulse Rate 61 64 64 Respiratory 18 Rate Blood Pressure 124/64 134/72 132/62 O2 Sat by Pulse Oximetry 11/07/17 11/07/17 11/07/17 11:15 11:30 11:45 Temperature Pulse Rate 61 63 31 L Respiratory Rate Blood Pressure 133/69 150/62 130/67 O2 Sat by Pulse Oximetry 11/07/17 11/07/17 11/07/17 12:00 12:15 12:30 Temperature Pulse Rate 62 63 63 Respiratory Rate Blood Pressure 134/59 140/72 156/66 O2 Sat by Pulse Oximetry 11/07/17 12:45 Temperature Pulse Rate 66 Respiratory Rate Blood Pressure 148/78 O2 Sat by Pulse Oximetry General appearance: Present: no acute distress - EENT Eyes: EOM intact ENT: hearing intact - Neck Neck: other (right neck dressing in-place, no purulent drainage, no significant pain at the site) - Respiratory Respiratory effort: normal Extremities: normal temperature, normal color, abnormal (actively being dialyzed through the left AVG) - Psychiatric Psychiatric: appropriate mood/affect, cooperative - Labs CBC & Chem 7: 11/07/17 04:28 11/07/17 04:28 Labs: Abnormal lab results 11/06/17 11/06/17 11/06/17 Range/Units 15:21 15:21 15:21 Hgb 11.3 L (11.8-15.2) gm/dl Hct 34.9 L (35.5-45.6) % MCV 82 L (84-94) fl MCH 27 L (28-32) pg RDW 21.7 H (13.2-15.2) % Plt Count (140-440) K/mm3 Lymph % (Auto) (13.4-35.0) % [place] % (Auto) 11.6 H (0.0-7.3) % Eos % (Auto) 4.5 H (0.0-4.3) % Lymph # (1.2-5.4) K/mm3 Seg Neutrophils % (40.0-70.0) % PT 16.4 H (12.2-14.9) Sec. INR 1.25 H (0.87-1.13) Potassium 6.4 H* (3.6-5.0) mmol/L Chloride 94.4 L (98-107) mmol/L BUN 89 H (9-20) mg/dL Creatinine 10.6 H (0.8-1.5) mg/dL Glucose 121 H (75-100) mg/dL Hemoglobin A1c (4-6) % Calcium 8.3 L (8.4-10.2) mg/dL Alkaline Phosphatase 183 H (35-129) units/L Total Protein 8.6 H (6.3-8.2) g/dL 11/06/1718 11/07/17 Range/Units 22:53 04:28 04:28 Hgb 10.0 L (11.8-15.2) gm/dl Hct 30.6 L (35.5-45.6) % MCV 82 L (84-94) fl MCH 27 L (28-32) pg RDW 21.7 H (13.2-15.2) % Plt Count 131 L (140-440) K/mm3 Lymph % (Auto) 11.6 L (13.4-35.0) % [place] % (Auto) 12.1 H (0.0-7.3) % Eos % (Auto) (0.0-4.3) % Lymph # 0.6 L (1.2-5.4) K/mm3 Seg Neutrophils % 72.2 H (40.0-70.0) % PT (12.2-14.9) Sec. INR (0.87-1.13) Potassium 6.0 H (3.6-5.0) mmol/L Chloride 96.8 L (98-107) mmol/L BUN 95 H (9-20) mg/dL Creatinine 11.4 H (0.8-1.5) mg/dL Glucose 141 H (75-100) mg/dL Hemoglobin A1c 6.2 H (4-6) % Calcium 8.3 L (8.4-10.2) mg/dL Alkaline Phosphatase 166 H (35-129) units/L Total Protein (6.3-8.2) g/dL
--- NOTE | 2017-11-07 15:21 | Progress Note ---
Assessment and Plan Assessment and plan: Patient is 72 yo man with a history of hypertension, AOCD and ESRD on hemodialysis who was admitted for right upper chest wall infection of PermCath requiring removal on 11/06/17 Infected venous access port Permacath removed Initiated on IV abx --Zosyn and Vancomycin pending cultures Hyperkalemia For HD Was given INsulin/Dextroe and Kayexalate in ED ESRD (end stage renal disease) on dialysis Cont HD Patient has AVF Anemia of chronic disease Epogen monitor cbc closely HTN (hypertension) Cont antihypertensives T2DM (type 2 diabetes mellitus) with Peripheral neuropathy Cont coverage Cont Gabapentin HLD (hyperlipidemia) Cont statins Depression Cont Fluoxetine h/o CAD (coronary artery disease) medical management DVT prophylaxis On Heparin History Interval history: Patient was seen and examined. Follow-up on current diagnosis dialysis catheter infection s/p removal. Overnight uneventful. Patient denies any chest pain, shortness breath, nausea/vomiting or severe headaches. Imaging, nursing note, chart, labs and old chart reviewed. Discussed with patient. Hospitalist Physical - Physical exam Narrative exam: GEN: WDWN, NAD, Awake, Alert, Orientated x 3 HEENT: NCAT, EOMI, PERRL, OP Clear NECK: supple, no adenopathy, no thyromegaly, no JVD CVS/HEART: RRR, normal S1S2, pulses present bilaterally CHEST/LUNGS: CTA B, Symmetrical chest expansion, good air entry bilaterally GI/Abdomen: soft, NTND, good bowel sounds, no guarding or rebound /Bladder: no suprapubic tenderness, no CVA or paraspinal tenderness EXT/Skin: no c/c/e, no obvious rash MSK: FROM x 4 Neuro: CN 2-12 grossly intact, no new focal deficits Psych: calm - Constitutional Vitals: Temp Pulse Resp BP Pulse Ox 98.8 F 55 L 18 162/77 100 11/07/17 14:15 11/07/17 14:15 11/07/17 14:15 11/07/17 14:15 11/07/17 06:07 General appearance: Present: no acute distress Results - Labs CBC & Chem 7: 11/07/17 04:28 11/07/17 04:28 Labs: Laboratory Last Values WBC 5.2 K/mm3 (4.5-11.0) 11/07/17 04:28 RBC 3.73 M/mm3 (3.65-5.03) 11/07/17 04:28 Hgb 10.0 gm/dl (11.8-15.2) L 11/07/17 04:28 Hct 30.6 % (35.5-45.6) L 11/07/17 04:28 MCV 82 fl (84-94) L 11/07/17 04: MCH 27 pg (28-32) L 11/07/17 04: MCHC 33 % (32-34) 11/07/17 04:28 RDW 21.7 % (13.2-15.2) H 11/07/17 04:28 Plt Count 131 K/mm3 (140-440) L 11/07/17 04:28 Lymph % (Auto) 11.6 % (13.4-35.0) L 11/07/17 04: [place] % (Auto) 12.1 % (0.0-7.3) H 11/07/17 04:28 Eos % (Auto) 3.2 % (0.0-4.3) 11/07/17 04:28 Baso % (Auto) 0.9 % (0.0-1.8) 11/07/17 04:28 Lymph # 0.6 K/mm3 (1.2-5.4) L 11/07/17 04:28 [place] # 0.6 K/mm3 (0.0-0.8) 11/07/17 04:28 Eos # 0.2 K/mm3 (0.0-0.4) 11/07/17 04:28 Baso # 0.0 K/mm3 (0.0-0.1) 11/07/17 04:28 Seg Neutrophils % 72.2 % (40.0-70.0) H 11/07/17 04:28 Seg Neutrophils # 3.7 K/mm3 (1.8-7.7) 11/07/17 04:28 PT 16.4 Sec. (12.2-14.9) H 11/06/17 15:21 INR 1.25 (0.87-1.13) H 11/06/17 15:21 APTT 30.6 Sec. (24.2-36.6) 11/06/17 15:21 Sodium 140 mmol/L (137-145) 11/07/17 04:28 Potassium 6.0 mmol/L (3.6-5.0) H 11/07/17 04:28 Chloride 96.8 mmol/L (98-107) L 11/07/17 04:28 Carbon Dioxide 22 mmol/L (22-30) 11/07/17 04:28 Anion Gap 27 mmol/L 11/07/17 04:28 BUN 95 mg/dL (9-20) H 11/07/17 04:28 Creatinine 11.4 mg/dL (0.8-1.5) H 11/07/17 04:28 Estimated GFR 5 ml/min 11/07/17 04:28 BUN/Creatinine Ratio 8 % 11/07/17 04:28 Glucose 141 mg/dL (75-100) H 11/07/17 04:28 POC Glucose 76 (70-105) 11/06/17 21:58 Hemoglobin A1c 6.2 % (4-6) H 11/06/17 22:53 Calcium 8.3 mg/dL (8.4-10.2) L 11/07/17 04:28 Total Bilirubin 0.40 mg/dL (0.1-1.2) 11/07/17 04:28 AST 23 units/L (5-40) 11/07/17 04:28 ALT 15 units/L (7-56) 11/07/17 04:28 Alkaline Phosphatase 166 units/L (35-129) H 11/07/17 04:28 Total Protein 7.9 g/dL (6.3-8.2) 11/07/17 04:28 Albumin 4.0 g/dL (3.9-5) 11/07/17 04:28 Albumin/Globulin Ratio 1.0 % 11/07/17 04:28
--- NOTE | 2017-11-07 15:50 | Consultation ---
History of Present Illness - Reason for Consult Consult date: 11/07/17 HD catheter infection Requesting physician: EILEEN WATERMAN - History of Present Illness HPI: 72-year-old -M[place]ese male with a past medical history of type 2 diabetes, hypertension, coronary artery disease, s/p L BKA, hyperlipidemia, end- stage renal disease, s/p prior AVF/AVG, currently on HD via R chest permacath who was sent to [facility] ER on 11/06/17 by his vascular surgeon due to concern about an infected hemodialysis catheter. Pt reports that he has had pain at the HD catheter site for about 2 weeks. He denies F/C, N/V/D, cough, SOB , CP, GARCIA, palpitations. He also noted around 11/05/17 that there was purulent drainage from catheter exit site. Pt also reports that he fell at home inside the shower and hit his Left flank/back. He denied loss of consciousness. In the emergency room his temperature was 97.7, pulse 71, respiratory rate 18, saturation 90%, blood pressure 133/65. He was evaluated by vascular surgery and his hemodialysis catheter was removed on 11/06/17. Procedure note reported presence of erythema around the catheter site exit with minimal exudate and a catheter tract that was tender to palpation. Catheter tip culture was sent for culture and is no growth so far. Blood cultures collected on 11/06/17 are in progress. Patient was started on antibiotic coverage with Zosyn and vancomycin pending cultures. Infectious diseases is consulted to help with further antibiotic management. Microbiology: Blood cultures: 11/06 Pending Catheter tip cx 11/06 NGTD Current Antimicrobials: Zosyn 11/06- Vancomycin 11/06- Past History Past Medical History: dialysis, ESRD, hypertension, other (DM) Past Surgical History: Other (multiple upper arm AV fistulas and grafts) Social history: , lives with family Family history: no significant family history Medications and Allergies Allergies Allergy/AdvReac Type Severity Reaction Status Date / Time No Known Allergies Allergy Verified 11/06/17 12:21 Home Medications Medication Instructions Recorded Confirmed Last Taken Type Acetaminophen [Acetaminophen TAB] 325 mg PO Q4H PRN #30 tablet 09/09/17 10:00 Rx Zolpidem [Ambien] 10 mg PO QHS PRN #10 tablet 09/09/17 11/05/17 22:00 Rx Aspirin EC [Aspirin Enteric Coated 81 mg PO QDAY 11/06/17 11/06/17 11/05/17 10: 00 History TAB] AtorvaSTATin [Lipitor] 40 mg PO QHS 11/06/17 11/06/17 11/05/17 22:00 History Clopidogrel [Plavix] 75 mg PO QDAY 11/06/17 11/06/17 11/05/17 10:00 History FLUoxetine [PROzac] 40 mg PO QDAY 11/06/17 11/06/17 11/05/17 10:00 History Gabapentin [Neurontin] 600 mg PO BID 11/06/17 11/06/17 11/05/17 22:00 History ISOSORBIDE MONOnitrate [Imdur ER] 30 mg PO QDAY 11/06/17 11/06/17 11/05/17 10: 00 History Lisinopril [Zestril TAB] 10 mg PO BID 11/06/17 11/06/17 11/05/17 22:00 History Metoprolol [Lopressor TAB] 25 mg PO BID MDD BLOOD PRESSURE 11/06/17 11/06/1704/24 22:00 History cloNIDine [Catapres] 0.1 mg PO BID 11/06/17 11/06/17 11/05/17 22:00 History oxyCODONE /ACETAMINOPHEN [Percocet 10 mg PO Q6H PRN 11/06/17 11/06/17 11/05/17 22:00 History 5/325 mg] Active Meds: Active Medications Acetaminophen (Tylenol) 650 mg PO Q4H PRN PRN Reason: Pain MILD(1-3)/Fever >100.5/GARCIA Aspirin (Halfprin Ec) 81 mg PO QDAY [facility] Last Admin: 11/07/17 11:26 Dose: Not Given Atorvastatin Calcium (Lipitor) 40 mg PO QHS [facility] Clonidine HCl (Catapres) 0.1 mg PO BID [facility] Last Admin: 11/07/17 11:26 Dose: Not Given Clopidogrel Bisulfate (Plavix) 75 mg PO QDAY [facility] Last Admin: 11/07/17 11:27 Dose: Not Given Famotidine (Pepcid) 10 mg PO BID [facility] Last Admin: 11/07/17 11:27 Dose: Not Given Fluoxetine HCl (Prozac) 40 mg PO QDAY [facility] Last Admin: 11/07/17 11:27 Dose: Not Given Gabapentin (Neurontin) 600 mg PO BID [facility] Last Admin: 11/07/17 11:27 Dose: Not Given Heparin Sodium (Porcine) (Heparin 10,000 Units/10 Ml) 1,000 unit IV SHY PRN PRN Reason: hemodialysis Last Admin: 11/07/17 11:01 Dose: 1,000 unit Piperacillin Sod/Tazobactam Sod (Zosyn/Ns 2.25 Gm/50ml) 2.25 gm in 50 mls @ 100 mls/hr IV Q8HR [facility]; Protocol Last Admin: 11/07/17 05:25 Dose: 100 mls/hr Sodium Chloride (Nacl 0.9%) 100 mls @ 999 mls/hr IV SHY PRN PRN Reason: Hypotension Vancomycin HCl (Vancomycin/Ns 1 Gm/250 Ml) 1 gm in 250 mls @ 167.007 mls/hr IV ONCE ONE Stop: 11/07/17 17:29 Isosorbide Mononitrate (Imdur) 30 mg PO QDAY [facility] Last Admin: 11/07/17 11:26 Dose: Not Given Lisinopril (Zestril) 10 mg PO BID [facility] Last Admin: 11/07/17 11:28 Dose: Not Given Metoprolol Tartrate (Lopressor) 25 mg PO BID [facility] Last Admin: 11/07/17 11:26 Dose: Not Given Morphine Sulfate (Morphine) 2 mg IV Q4H PRN PRN Reason: Pain, Moderate (4-6) Ondansetron HCl (Zofran) 4 mg IV Q8H PRN PRN Reason: Nausea And Vomiting Oxycodone/Acetaminophen (Percocet 5/325) 2 tab PO Q6H PRN PRN Reason: Pain , Severe (7-10) Last Admin: 11/07/17 05:42 Dose: 2 tab Sodium Chloride (Sodium Chloride Flush Syringe 10 Ml) 10 ml IV BID [facility] Last Admin: 11/07/17 11:28 Dose: Not Given Sodium Chloride (Sodium Chloride Flush Syringe 10 Ml) 10 ml IV PRN PRN PRN Reason: LINE FLUSH Vancomycin HCl (Vancomycin Pharmacy To Dose) 1 each IV PKCONSULT [facility]; Protocol Zolpidem Tartrate (Ambien) 10 mg PO QHS PRN PRN Reason: Insomnia Review of Systems Constitutional: other (As per HPI.) Physical Examination - Physical Exam Narrative exam: General appearance: AA male. In NAD. A&Ox3. Eyes: anicteric sclerae, moist conjunctivae; PERRLA. HENT: Atraumatic; oropharynx clear with moist mucous membranes and no mucosal ulcerations/no oral thrush; normal hard and soft palate. Normal external ears. Neck: Trachea midline; supple, no thyromegaly or lymphadenopathy. Lungs: CTA, with normal respiratory effort and no intercostal retractions. CV: S1,S2. Abdomen: Obese. Soft. +BS. Left flank/back tenderness to palpation Extremities: Left BKA. LUE AVG, site has no erythema, no tenderness. Skin: No rash. Prior HD catheter site exit is swollen, erythematous and with blood/purulent drainage noted on dressing. Psych: Appropriate affect, alert and oriented to person, place and time. Neuro: alert and oriented x 3. Grossly non-focal. - Constitutional Vitals: Vital Signs Temp Pulse Resp BP Pulse Ox 98.8 F 55 L 18 162/77 100 11/07/17 14:15 11/07/17 14:15 11/07/17 14:15 11/07/17 14:15 11/07/17 06:07 Temperature -Last 24 Hours Temperature 98.8 F Temperature 97.8 F Temperature 98.3 F Temperature 98.0 F Temperature 97.6 F Results - Labs CBC & Chem 7: 11/07/17 04:28 11/07/17 04:28 Labs: Abnormal lab results 11/06/17 11/06/17 11/06/17 Range/Units 15:21 15:21 15:21 Hgb 11.3 L (11.8-15.2) gm/dl Hct 34.9 L (35.5-45.6) % MCV 82 L (84-94) fl MCH 27 L (28-32) pg RDW 21.7 H (13.2-15.2) % Plt Count (140-440) K/mm3 Lymph % (Auto) (13.4-35.0) % [place] % (Auto) 11.6 H (0.0-7.3) % Eos % (Auto) 4.5 H (0.0-4.3) % Lymph # (1.2-5.4) K/mm3 Seg Neutrophils % (40.0-70.0) % PT 16.4 H (12.2-14.9) Sec. INR 1.25 H (0.87-1.13) Potassium 6.4 H* (3.6-5.0) mmol/L Chloride 94.4 L (98-107) mmol/L BUN 89 H (9-20) mg/dL Creatinine 10.6 H (0.8-1.5) mg/dL Glucose 121 H (75-100) mg/dL Hemoglobin A1c (4-6) % Calcium 8.3 L (8.4-10.2) mg/dL Alkaline Phosphatase 183 H (35-129) units/L Total Protein 8.6 H (6.3-8.2) g/dL 11/06/17 11/07/17 11/07/17 Range/Units 22:53 04:28 04:28 Hgb 10.0 L (11.8-15.2) gm/dl Hct 30.6 L (35.5-45.6) % MCV 82 L (84-94) fl MCH 27 L (28-32) pg RDW 21.7 H (13.2-15.2) % Plt Count 131 L (140-440) K/mm3 Lymph % (Auto) 11.6 L (13.4-35.0) % [place] % (Auto) 12.1 H (0.0-7.3) % Eos % (Auto) (0.0-4.3) % Lymph # 0.6 L (1.2-5.4) K/mm3 Seg Neutrophils % 72.2 H (40.0-70.0) % PT (12.2-14.9) Sec. INR (0.87-1.13) Potassium 6.0 H (3.6-5.0) mmol/L Chloride 96.8 L (98-107) mmol/L BUN 95 H (9-20) mg/dL Creatinine 11.4 H (0.8-1.5) mg/dL Glucose 141 H (75-100) mg/dL Hemoglobin A1c 6.2 H (4-6) % Calcium 8.3 L (8.4-10.2) mg/dL Alkaline Phosphatase 166 H (35-129) units/L Total Protein (6.3-8.2) g/dL Assessment and Plan Assessment: -Tunneled HD catheter infection, status post removal on 11/06/17. Catheter tip no growth so far. -Thrombocytopenia. -End-stage renal disease on hemodialysis. -Type 2 DM. -Left flank/back pain after a fall. Plan: -We will follow blood cultures and catheter tip culture. -Stop Zosyn and start cefepime. -Continue intravenous vancomycin. -Will ask nephrology if patient received antibiotics with HD prior to admission. -Left flank pain per medicine service. -D/w Dr Waterman. Thank you for your consultation, will follow up with you. Kerri Aburto MD Infectious Diseases Specialist [facility] ([facility]) m [phone]
[2017-11-07] MEDS ORDERED: VANCOMYCIN/NS 1 GM/250 ML 1 GM/250 ML BAG IV ONE (16:00)
[2017-11-07] MEDS: MAXIPIME/NS 1 GM/100 ML 1 GM/100 ML BAG IV SCH (18:28)
[2017-11-08] MEDS: SODIUM CHLORIDE FLUSH SYRINGE 10 ML IV SCH ×3 (04:52→21:15)
[2017-11-08 06:57] LABS: Hematocrit 34.4 % (35.5-45.6); Mean Corpuscular HGB Conc 32 % (32-34); Mean Corpuscular Hemoglobin 27 pg (28-32); Mean Corpuscular Volume 84 fl (84-94); Platelet Count 137 K/mm3 (140-440)
[2017-11-08 07:03] LABS: Red Cell Distribution Width 22.6 % (13.2-15.2)
[2017-11-08 07:21] LABS: Calcium 9.7 mg/dL (8.4-10.2)
[2017-11-08] MEDS: PLAVIX PO SCH (11:57)
[2017-11-08] MEDS: PEPCID PO SCH ×2 (11:58→21:11)
[2017-11-08] MEDS: CATAPRES PO SCH ×2 (11:58→21:13)
[2017-11-08] MEDS: PROzac PO SCH (11:58)
[2017-11-08] MEDS: HALFPRIN EC PO SCH (11:58)
[2017-11-08] MEDS: NEURONTIN PO SCH ×2 (11:58→21:13)
[2017-11-08] MEDS: PERCOCET 5/325 PO PRN ×2 (11:58→21:12)
[2017-11-08] MEDS: LOPRESSOR PO SCH ×2 (12:00→21:13)
[2017-11-08] MEDS: ZESTRIL PO SCH ×2 (12:00→21:11)
[2017-11-08] MEDS: IMDUR PO SCH (12:01)
[2017-11-08] MEDS: MAXIPIME/NS 1 GM/100 ML 1 GM/100 ML BAG IV SCH (12:05)
[2017-11-08] MEDS ORDERED: DULCOLAX PR ONE (13:23)
--- NOTE | 2017-11-08 13:23 | Progress Note ---
Assessment and Plan Assessment and plan: Patient is 72 yo man with a history of hypertension, AOCD, pvd with left BKA and ESRD on hemodialysis who was admitted for right upper chest wall infection of PermCath requiring removal on 11/06/17 Infected venous access port Permacath removed Initiated on IV abx --Zosyn and Vancomycin pending cultures Hyperkalemia For HD Was given INsulin/Dextroe and Kayexalate in ED ESRD (end stage renal disease) on dialysis Cont HD Patient has AVF Anemia of chronic disease Epogen monitor cbc closely HTN (hypertension) Cont antihypertensives T2DM (type 2 diabetes mellitus) with Peripheral neuropathy Cont coverage Cont Gabapentin HLD (hyperlipidemia) Cont statins Depression Cont Fluoxetine Constipation use Dulcolax suppository h/o CAD (coronary artery disease) medical management DVT prophylaxis On Heparin left flank/side pains after fall told to ID but pt did not mention to me because the pains were not bad, also no history of LOC: will get xray to rule out fracture, Disposition: continue inpatient care until abx is arranged with hemodialysis, spoke with case carolarhonda Jay and she is not aware of any arrangement done. D/W ID, Dr. Almonte, if cultures negative then abx for 1-2 weeks. History Interval history: Patient was seen and examined. Follow-up on current diagnosis dialysis catheter infection s/p removal. Overnight uneventful. Patient denies any chest pain, shortness breath, nausea/vomiting or severe headaches. Imaging, nursing note, chart, labs and old chart reviewed. Discussed with patient. Hospitalist Physical - Physical exam Narrative exam: GEN: WDWN, NAD, Awake, Alert, Orientated x 3 HEENT: NCAT, EOMI, PERRL, OP Clear NECK: supple, no adenopathy, no thyromegaly, no JVD CVS/HEART: RRR, normal S1S2, pulses present bilaterally CHEST/LUNGS: CTA B, Symmetrical chest expansion, good air entry bilaterally GI/Abdomen: soft, NTND, good bowel sounds, no guarding or rebound /Bladder: no suprapubic tenderness, no CVA or paraspinal tenderness EXT/Skin: no c/c/e, no obvious rash MSK: FROM x 4 , left AKA Neuro: CN 2-12 grossly intact, no new focal deficits Psych: calm - Constitutional Vitals: Temp Pulse Resp BP Pulse Ox 98.3 F 74 16 141/61 95 11/08/17 05:45 11/08/17 12:00 11/08/17 05:45 11/08/17 12:00 11/08/17 05:45 General appearance: Present: no acute distress Results - Labs CBC & Chem 7: 11/08/17 05:57 11/08/17 05:57 Labs: Laboratory Last Values WBC 4.0 K/mm3 (4.5-11.0) L 11/08/17 05:57 RBC 4.10 M/mm3 (3.65-5.03) 11/08/17 05:57 Hgb 11.0 gm/dl (11.8-15.2) L 11/08/17 05:57 Hct 34.4 % (35.5-45.6) L 11/08/17 05:57 MCV 84 fl (84-94) 11/08/17 05:57 MCH 27 pg (28-32) L 11/08/17 05:57 MCHC 32 % (32-34) 11/08/17 05:57 RDW 22.6 % (13.2-15.2) H 11/08/17 05:57 Plt Count 137 K/mm3 (140-440) L 11/08/17 05:57 Lymph % (Auto) 11.6 % (13.4-35.0) L 11/07/17 04:28 [place] % (Auto) 12.1 % (0.0-7.3) H 11/07/17 04:28 Eos % (Auto) 3.2 % (0.0-4.3) 11/07/17 04:28 Baso % (Auto) 0.9 % (0.0-1.8) 11/07/17 04:28 Lymph # 0.6 K/mm3 (1.2-5.4) L 11/07/17 04:28 [place] # 0.6 K/mm3 (0.0-0.8) 11/07/17 04:28 Eos # 0.2 K/mm3 (0.0-0.4) 11/07/17 04:28 Baso # 0.0 K/mm3 (0.0-0.1) 11/07/17 04:28 Seg Neutrophils % 72.2 % (40.0-70.0) H 11/07/17 04:28 Seg Neutrophils # 3.7 K/mm3 (1.8-7.7) 11/07/17 04:28 PT 16.4 Sec. (12.2-14.9) H 11/06/17 15:21 INR 1.25 (0.87-1.13) H 11/06/17 15:21 APTT 30.6 Sec. (24.2-36.6) 11/06/17 15:21 Sodium 140 mmol/L (137-145) 11/08/17 05:57 Potassium 4.9 mmol/L (3.6-5.0) 11/08/17 05:57 Chloride 95.3 mmol/L (98-107) L 11/08/17 05:57 Carbon Dioxide 24 mmol/L (22-30) 11/08/17 05:57 Anion Gap 26 mmol/L 11/08/17 05:57 BUN 54 mg/dL (9-20) H 11/08/17 05:57 Creatinine 8.1 mg/dL (0.8-1.5) H 11/08/17 05:57 Estimated GFR 8 ml/min 11/08/17 05:57 BUN/Creatinine Ratio 7 % 11/08/17 05:57 Glucose 151 mg/dL (75-100) H 11/08/17 05:57 POC Glucose 76 (70-105) 11/06/17 21:58 Hemoglobin A1c 6.2 % (4-6) H 11/06/17 22:53 Calcium 9.7 mg/dL (8.4-10.2) D 11/08/17 05:57 Total Bilirubin 0.40 mg/dL (0.1-1.2) 11/07/17 04:28 AST 23 units/L (5-40) 11/07/17 04:28 ALT 15 units/L (7-56) 11/07/17 04:28 Alkaline Phosphatase 166 units/L (35-129) H 11/07/17 04:28 Total Protein 7.9 g/dL (6.3-8.2) 11/07/17 04:28 Albumin 4.0 g/dL (3.9-5) 11/07/17 04:28 Albumin/Globulin Ratio 1.0 % 11/07/17 04:28 Random Vancomycin 23.6 ug/mL (0-40.0) 11/08/17 05:57
--- NOTE | 2017-11-08 14:29 | Progress Note ---
Assessment and Plan - Patient Problems (1) ESRD (end stage renal disease) on dialysis Current Visit: Yes Status: Chronic Plan to address problem: cont HD on MWF schedule. used RUE AVG without problems (2) Infected venous access port Current Visit: Yes Status: Acute Qualifiers: Encounter type: initial encounter Qualified Code(s): T80.219A - Unspecified infection due to central venous catheter, initial encounter Plan to address problem: Cont ABXs as per ID. pending final blood culture results. Infected catheter was removed. 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 (6) Anemia of chronic disease Current Visit: No Status: Chronic Plan to address problem: Goal hb of 10-11.5. no EPO needed at present Subjective Date of service: 11/08/17 Principal diagnosis: Infected permcath Interval history: Pt awake, alert, denies fever, chills, n/v/d Objective - Vital Signs Vital signs: Vital Signs - 12hr 11/08/17 11/08/17 11/08/17 05:45 12:00 12:58 Temperature 98.3 F Pulse Rate 78 74 64 Respiratory 16 Rate Blood Pressure 147/76 141/61 147/56 O2 Sat by Pulse 95 99 Oximetry - General Appearance General appearance: well-developed, well-nourished, appears stated age EENT: ATNC, PERRL, mucous membranes moist Neck: no JVD Respiratory: Present: Clear to Ascultation Cardiology: regular, S1S2 Gastrointestinal: normoactive bowel sounds Integumentary: no rash, other (no edema ) Neurologic: no focal deficit, alert and oriented x3, strength 5/5, CN 3-12 intact Psychiatric: mood/affect appropriate, cooperative - Lab 11/08/17 05:57 11/08/17 05:57 Most recent lab results Calcium 9.7 mg/dL (8.4-10.2) D 11/08/17 05:57
--- NOTE | 2017-11-08 14:38 | XRay Report ---
FINAL REPORT EXAM: XR CHEST ROUTINE 2V HISTORY: left chest pain after fall, rib fracture TECHNIQUE: Frontal and lateral chest x-ray. PRIORS: None. FINDINGS: Mild cardiomegaly, which may be due in part to AP technique, but stable. Lungs show patchy and partially confluent opacities in the probable right middle and lower lobes mildly decreased from comparison. Probable small right pleural effusion also decreased. Left lung grossly clear. No other focal consolidation or apparent pneumothorax. Bony thorax grossly unremarkable. IMPRESSION: 1. Right middle and lower lobe atelectasis versus consolidations and small right pleural effusion mildly decreased in the interval. Clinical correlation and radiographic followup after 4-6 weeks advised to document resolution.
--- NOTE | 2017-11-08 14:40 | XRay Report ---
FINAL REPORT EXAM: XR ABDOMEN 2V HISTORY: left flank pains/back pains after fall TECHNIQUE: Supine and upright views of abdomen. PRIORS: None. FINDINGS: Moderate-large amount of retained stool. Nonspecific bowel gas pattern without features suggestive of mechanical obstruction. No apparent pneumoperitoneum. No abnormal calcifications. Osseous structures grossly unremarkable. Probable postsurgical change of ventral hernia repair incidentally noted. IMPRESSION: 1. Nonspecific bowel gas pattern, which may be secondary to constipation or represent adynamic ileus. Followup may be warranted.
[2017-11-09 05:20] LABS: Hematocrit 30.3 % (35.5-45.6); Mean Corpuscular HGB Conc 33 % (32-34); Mean Corpuscular Hemoglobin 27 pg (28-32); Mean Corpuscular Volume 82 fl (84-94); Platelet Count 125 K/mm3 (140-440); Red Blood Count 3.71 M/mm3 (3.65-5.03)
[2017-11-09 05:24] LABS: Red Cell Distribution Width 21.9 % (13.2-15.2)
[2017-11-09] MEDS: LOPRESSOR PO SCH ×2 (09:37→22:25)
[2017-11-09] MEDS: PLAVIX PO SCH (09:37)
[2017-11-09] MEDS: ZESTRIL PO SCH ×2 (09:37→22:26)
[2017-11-09] MEDS: IMDUR PO SCH (09:37)
[2017-11-09] MEDS: NEURONTIN PO SCH ×2 (09:38→22:24)
[2017-11-09] MEDS: SODIUM CHLORIDE FLUSH SYRINGE 10 ML IV SCH ×2 (09:38→22:27)
[2017-11-09] MEDS: PROzac PO SCH (09:38)
[2017-11-09] MEDS: HALFPRIN EC PO SCH (09:38)
[2017-11-09] MEDS: PEPCID PO SCH ×2 (09:38→22:27)
[2017-11-09] MEDS: CATAPRES PO SCH ×2 (09:38→22:30)
--- NOTE | 2017-11-09 09:39 | Progress Note ---
Assessment and Plan - Patient Problems (1) ESRD (end stage renal disease) on dialysis Current Visit: Yes Status: Chronic Plan to address problem: cont HD on MWF schedule. used RUE AVG without problems. stable for discharge once outpatient ABXs regimen determined by ID. (2) Infected venous access port Current Visit: Yes Status: Acute Qualifiers: Encounter type: initial encounter Qualified Code(s): T80.219A - Unspecified infection due to central venous catheter, initial encounter Plan to address problem: Cont ABXs as per ID. pending final blood culture results. If pt requires vanco upon discharge, it can be arranged at HD clinic Infected catheter was removed. (3) Hyperkalemia Current Visit: Yes Status: Acute Plan to address problem: resolved with HD, cont 2g K renal diet (4) HTN (hypertension) Current Visit: Yes Status: Chronic Qualifiers: Hypertension type: essential hypertension Qualified Code(s): I10 - Essential (primary) hypertension Plan to address problem: resume home BP regimen (5) T2DM (type 2 diabetes mellitus) Current Visit: Yes Status: Chronic Qualifiers: Diabetes mellitus half-way insulin use: without adjunct faculty for medical terminology use Plan to address problem: Diabetic treatment per primary team. (6) Anemia of chronic disease Current Visit: No Status: Chronic Plan to address problem: Goal hb of 10-11.5. no EPO needed at present Subjective Date of service: 11/09/17 Principal diagnosis: Infected permcath Interval history: Pt awake, alert, denies fever, chills, n/v/d Objective - Vital Signs Vital signs: Vital Signs - 12hr 11/08/17 11/08/17 11/08/17 22:00 22:12 22:56 Temperature 97.9 F Pulse Rate 63 Respiratory 18 17 16 Rate Respiratory 18 Rate [ Generalized] Blood Pressure 125/53 O2 Sat by Pulse 98 Oximetry 11/09/17 05:18 Temperature 98.0 F Pulse Rate 72 Respiratory 16 Rate Respiratory Rate [ Generalized] Blood Pressure 139/69 O2 Sat by Pulse 100 Oximetry - General Appearance General appearance: well-developed, well-nourished, appears stated age EENT: ATNC, PERRL, mucous membranes moist Neck: no JVD Respiratory: Present: Clear to Ascultation Cardiology: regular, S1S2 Gastrointestinal: normoactive bowel sounds Integumentary: no rash, other (no edema ) Neurologic: no focal deficit, alert and oriented x3, strength 5/5, CN 3-12 intact Psychiatric: mood/affect appropriate, cooperative - Lab 11/09/17 04:49 11/09/17 04:49 Most recent lab results Calcium 9.0 mg/dL (8.4-10.2) 11/09/17 04:49
--- NOTE | 2017-11-09 10:24 | Progress Note ---
Assessment and Plan Assessment: -Tunneled HD catheter site infection, status post removal on 11/06/17. Blood cultures and catheter tip negative. -Acute confusion/hallucinations. ?YARD COUPLER toxicity related to cefepime. -Leukopenia. ?antibiotic related. -Thrombocytopenia. -End-stage renal disease on hemodialysis. -Type 2 DM. -Left flank/back pain after a fall. Plan: -Stop cefepime. -Continue intravenous vancomycin. -Start gentamicin. -Will plan for 5 more days of antibiotics with HD. -Monitor mental status. -CBC in AM. -d/w RN and Dr Waterman. Thank you for your consultation, will follow up with you. Kerri Aburto MD Infectious Diseases Specialist [facility] ([facility]) M [phone] Subjective Date of service: 11/09/17 Principal diagnosis: Infected permcath Interval history: Afebrile. Confused. Seeing things/persons in the room. Left back pain is better. Microbiology: Blood cultures: 11/06 NGTD Catheter tip cx 11/06 Neg Current Antimicrobials: Cefepime 11/07- Vancomycin 11/06- Prior antimicrobials Zosyn 11/06-11/07 Objective - Exam Narrative Exam: General appearance: AA male. In NAD. Awake, but confused. Eyes: anicteric sclerae, moist conjunctivae; PERRLA. HENT: Atraumatic; oropharynx clear with moist mucous membranes and no mucosal ulcerations/no oral thrush; normal hard and soft palate. Normal external ears. Neck: Trachea midline; supple, no thyromegaly or lymphadenopathy. Lungs: CTA, with normal respiratory effort and no intercostal retractions. CV: S1,S2. Abdomen: Obese. Soft. +BS. Extremities: Left BKA. LUE AVG, site has no erythema, no tenderness. Skin: No rash. Prior HD catheter site exit is less edematous, no drainage. Neuro: Alert. Confused. Hallucinating. - Constitutional Vitals: Vital Signs Temp Pulse Resp BP Pulse Ox 98.0 F 73 16 141/64 100 11/09/17 05:18 11/09/17 09:37 11/09/17 05:18 11/09/17 09:37 11/09/17 05:18 Temperature -Last 24 Hours Temperature 98.0 F Temperature 97.9 F Temperature 98.5 F - Labs CBC & Chem 7: 11/09/17 04:49 11/09/17 04:49 Labs: Abnormal lab results 11/09/17 11/09/17 Range/Units 04:49 04:49 WBC 3.7 L (4.5-11.0) K/mm3 Hgb 10.0 L (11.8-15.2) gm/dl Hct 30.3 L (35.5-45.6) % MCV 82 L (84-94) fl MCH 27 L (28-32) pg RDW 21.9 H (13.2-15.2) % Plt Count 125 L (140-440) K/mm3 Potassium 5.1 H (3.6-5.0) mmol/L Chloride 93.2 L (98-107) mmol/L BUN 64 H (9-20) mg/dL Creatinine 9.6 H (0.8-1.5) mg/dL Glucose 132 H (75-100) mg/dL
--- NOTE | 2017-11-09 11:39 | Discharge Summary ---
Providers - Providers Date of Admission: 11/06/17 18:06 Date of discharge: 11/10/17 Attending physician: EILEEN TANG 11/06/17 17:44 Consult to Physician [CONS] Routine Comment: DR PAT NOTIFIED 1730 Consulting Provider: GUERA PAT Physician Instructions: Reason For Exam: Dialysis, Hyperkalemia 11/06/17 22:33 Consult to Physician [CONS] Routine Comment: Consulting Provider: ASHWIN WYATT Physician Instructions: Reason For Exam: Infected port 11/07/17 11:30 Physical Therapy Evaluation and Treat [CONS] Routine Comment: Reason For Exam: Difficulty in ambulation 11/07/17 15:29 Consult to Physician [CONS] Routine Comment: Consulting Provider: TISHA ABURTO Physician Instructions: spoke with Dr. chairez Reason For Exam: infected permcath Primary care physician: PROGRAM CONSULTANT Hospitalization Condition: Stable Hospital course: Patient is 72 yo man with a history of hypertension, AOCD, pvd with left BKA and ESRD on hemodialysis who was admitted for right upper chest wall infection of PermCath requiring removal on 11/06/17 Infected venous access port Permacath removed Initiated on IV abx --Zosyn and Vancomycin pending cultures Hyperkalemia For HD Was given INsulin/Dextroe and Kayexalate in ED ESRD (end stage renal disease) on dialysis Cont HD Patient has AVF Anemia of chronic disease Epogen monitor cbc closely HTN (hypertension) Cont antihypertensives T2DM (type 2 diabetes mellitus) with Peripheral neuropathy Cont coverage Cont Gabapentin HLD (hyperlipidemia) Cont statins Depression Cont Fluoxetine Constipation used Dulcolax suppository, resolved with the suppository h/o CAD (coronary artery disease) medical management DVT prophylaxis On Heparin left flank/side pains after fall told to ID but pt did not mention to me because the pains were not bad, also no history of LOC: will get xray to rule out fracture, 2v CXR IMPRESSION: 1. Right middle and lower lobe atelectasis versus consolidations and small right pleural effusion mildly decreased in the interval. Clinical correlation and radiographic followup after 4-6 weeks advised to document resolution. 2v Abdominal XR IMPRESSION: 1. Nonspecific bowel gas pattern, which may be secondary to constipation or represent adynamic ileus. Followup may be warranted. -will give Dulcolax suppository, I am not sure if he got it yesterday. Disposition: continue inpatient care until abx is arranged with hemodialysis, spoke with case manrhonda Jay and she is not aware of any arrangement done. D/W ID, Dr. Chairez, if cultures negative then abx for 1-2 weeks. 11/09/17 Acute Encephalopathy,?medication induced: I was going to discharge patient today but ID and nurse says that patient was hallucinating. So, I went back to re-evaluate pt. I sat down and spent quite a bit of time with him. He gets mad with orientation type of questions. He says, "I know I was confused couple days ago because they gave me too much medications, they gave me neurontin and 2 percocets when i usually take one". Then when I asked him did he know his location, he says, "I'm at this place where a 10/15 use to be". He doesn't know his location but he knows the year, month, day. I told him to call his with his cell phone and he was unable to do that. D/w Dr. Aburto, sometimes cefepime can cause this, so she will change abx and observe 11/10/17: a/o x 3. Encephalopathy resolved, suspect medication induced Disposition: DC-01 TO HOME OR SELFCARE Time spent for discharge: 32 minutes Core Measure Documentation - Palliative Care Palliative Care/ Comfort Measures: Not Applicable - Core Measures Any of the following diagnoses?: none - VTE Discharge Requirements Deep Vein Thrombosis/Pulmonary Embolism Present on Admission: No Has pt received <5 days of overlap therapy or INR<2.0: No Anticoagulant overlap therapy prescribed at discharge: No Contraindication No Overlap Therapy order at DC: Not Indicated Exam - Physical Exam Narrative exam: GEN: WDWN, NAD, Awake, Alert, Orientated x 3 HEENT: NCAT, EOMI, PERRL, OP Clear NECK: supple, no adenopathy, no thyromegaly, no JVD CVS/HEART: RRR, normal S1S2, pulses present bilaterally CHEST/LUNGS: CTA B, Symmetrical chest expansion, good air entry bilaterally GI/Abdomen: soft, NTND, good bowel sounds, no guarding or rebound /Bladder: no suprapubic tenderness, no CVA or paraspinal tenderness EXT/Skin: no c/c/e, no obvious rash MSK: FROM x 4 , left AKA Neuro: CN 2-12 grossly intact, no new focal deficits Psych: calm - Constitutional Vitals: Temp Pulse Resp BP Pulse Ox 98.0 F 73 16 141/64 100 11/09/17 05:18 11/09/17 09:37 11/09/17 05:18 11/09/17 09:37 11/09/17 05:18 Plan Activity: other Diet: renal Follow up with: PRIMARY CAREMD [Primary Care Provider] - 3-5 Days
[2017-11-09] MEDS ORDERED: GARAMYCIN/NS 100 MG/100 ML 100 MG/100 ML BAG IV ONE (13:00)
--- NOTE | 2017-11-09 13:42 | Progress Note ---
Assessment and Plan Assessment and plan: Patient is 72 yo man with a history of hypertension, AOCD, pvd with left BKA and ESRD on hemodialysis who was admitted for right upper chest wall infection of PermCath requiring removal on 11/06/17 Infected venous access port Permacath removed Initiated on IV abx --Zosyn and Vancomycin pending cultures Hyperkalemia For HD Was given INsulin/Dextroe and Kayexalate in ED ESRD (end stage renal disease) on dialysis Cont HD Patient has AVF Anemia of chronic disease Epogen monitor cbc closely HTN (hypertension) Cont antihypertensives T2DM (type 2 diabetes mellitus) with Peripheral neuropathy Cont coverage Cont Gabapentin HLD (hyperlipidemia) Cont statins Depression Cont Fluoxetine Constipation use Dulcolax suppository h/o CAD (coronary artery disease) medical management DVT prophylaxis On Heparin left flank/side pains after fall told to ID but pt did not mention to me because the pains were not bad, also no history of LOC: will get xray to rule out fracture, 2v CXR IMPRESSION: 1. Right middle and lower lobe atelectasis versus consolidations and small right pleural effusion mildly decreased in the interval. Clinical correlation and radiographic followup after 4-6 weeks advised to document resolution. 2v Abdominal XR IMPRESSION: 1. Nonspecific bowel gas pattern, which may be secondary to constipation or represent adynamic ileus. Followup may be warranted. -will give Dulcolax suppository, I am not sure if he got it yesterday. Disposition: continue inpatient care until abx is arranged with hemodialysis, spoke with case manrhonda Jay and she is not aware of any arrangement done. D/W ID, Dr. Almonte, if cultures negative then abx for 1-2 weeks. Acute Encephalopathy,?medication induced: I was going to discharge patient today but ID and nurse says that patient was hallucinating. So, I went back to re-evaluate pt. I sat down and spent quite a bit of time with him. He gets mad with orientation type of questions. He says, "I know I was confused couple days ago because they gave me too much medications, they gave me neurontin and 2 percocets when i usually take one". Then when I asked him did he know his location, he says, "I'm at this place where a 10/15 use to be". He doesn't know his location but he knows the year, month, day. I told him to call his with his cell phone and he was unable to do that. D/w Dr. Aburto, sometimes cefepime can cause this, so she will change abx and observe History Interval history: Patient was seen and examined. Follow-up on current diagnosis dialysis catheter infection s/p removal. Overnight uneventful. Patient denies any chest pain, shortness breath, nausea/vomiting or severe headaches. Imaging, nursing note, chart, labs and old chart reviewed. Discussed with patient. Hospitalist Physical - Physical exam Narrative exam: GEN: WDWN, NAD, Awake, Alert, Orientated x 2, missed location, he thought this was 10/15 store. He gets upset with questions HEENT: NCAT, EOMI, PERRL, OP Clear NECK: supple, no adenopathy, no thyromegaly, no JVD CVS/HEART: RRR, normal S1S2, pulses present bilaterally CHEST/LUNGS: CTA B, Symmetrical chest expansion, good air entry bilaterally GI/Abdomen: soft, NTND, good bowel sounds, no guarding or rebound /Bladder: no suprapubic tenderness, no CVA or paraspinal tenderness EXT/Skin: no c/c/e, no obvious rash MSK: FROM x 4 , left bKA Neuro: CN 2-12 grossly intact, no new focal deficits Psych: calm - Constitutional Vitals: Temp Pulse Resp BP Pulse Ox 98.0 F 73 16 141/64 100 11/09/17 05:18 11/09/17 09:37 11/09/17 05:18 11/09/17 09:37 11/09/17 05:18 General appearance: Present: no acute distress Results - Labs CBC & Chem 7: 11/09/17 04:49 11/09/17 04:49 Labs: Laboratory Last Values WBC 3.7 K/mm3 (4.5-11.0) L 11/09/17 04:49 RBC 3.71 M/mm3 (3.65-5.03) 11/09/17 04:49 Hgb 10.0 gm/dl (11.8-15.2) L 11/09/17 04:49 Hct 30.3 % (35.5-45.6) L 11/09/17 04:49 MCV 82 fl (84-94) L 11/09/17 04:49 MCH 27 pg (28-32) L 11/09/17 04:49 MCHC 33 % (32-34) 11/09/17 04:49 RDW 21.9 % (13.2-15.2) H 11/09/17 04:49 Plt Count 125 K/mm3 (140-440) L 11/09/17 04:49 Lymph % (Auto) 11.6 % (13.4-35.0) L 11/07/17 04:28 [place] % (Auto) 12.1 % (0.0-7.3) H 11/07/17 04:28 Eos % (Auto) 3.2 % (0.0-4.3) 11/07/17 04:28 Baso % (Auto) 0.9 % (0.0-1.8) 11/07/17 04:28 Lymph # 0.6 K/mm3 (1.2-5.4) L 11/07/17 04:28 [place] # 0.6 K/mm3 (0.0-0.8) 11/07/17 04:28 Eos # 0.2 K/mm3 (0.0-0.4) 11/07/17 04:28 Baso # 0.0 K/mm3 (0.0-0.1) 11/07/17 04:28 Seg Neutrophils % 72.2 % (40.0-70.0) H 11/07/17 04:28 Seg Neutrophils # 3.7 K/mm3 (1.8-7.7) 11/07/17 04:28 PT 16.4 Sec. (12.2-14.9) H 11/06/17 15:21 INR 1.25 (0.87-1.13) H 11/06/17 15:21 APTT 30.6 Sec. (24.2-36.6) 11/06/17 15:21 Sodium 140 mmol/L (137-145) 11/09/17 04:49 Potassium 5.1 mmol/L (3.6-5.0) H 11/09/17 04:49 Chloride 93.2 mmol/L (98-107) L 11/09/17 04:49 Carbon Dioxide 26 mmol/L (22-30) 11/09/17 04:49 Anion Gap 26 mmol/L 11/09/17 04:49 BUN 64 mg/dL (9-20) H 11/09/17 04:49 Creatinine 9.6 mg/dL (0.8-1.5) H 11/09/17 04:49 Estimated GFR 7 ml/min 11/09/17 04:49 BUN/Creatinine Ratio 7 % 11/09/17 04:49 Glucose 132 mg/dL (75-100) H 11/09/17 04:49 POC Glucose 76 (70-105) 11/06/17 21:58 Hemoglobin A1c 6.2 % (4-6) H 11/06/17 22:53 Calcium 9.0 mg/dL (8.4-10.2) 11/09/17 04:49 Total Bilirubin 0.40 mg/dL (0.1-1.2) 11/07/17 04:28 AST 23 units/L (5-40) 11/07/17 04:28 ALT 15 units/L (7-56) 11/07/17 04:28 Alkaline Phosphatase 166 units/L (35-129) H 11/07/17 04:28 Total Protein 7.9 g/dL (6.3-8.2) 11/07/17 04:28 Albumin 4.0 g/dL (3.9-5) 11/07/17 04:28 Albumin/Globulin Ratio 1.0 % 11/07/17 04:28 Random Vancomycin 23.6 ug/mL (0-40.0) 11/08/17 05:57
[2017-11-09] MEDS ORDERED: DULCOLAX PR ONE (13:45)
[2017-11-10 06:01] LABS: Eosinophils # (Auto) 0.2 K/mm3 (0.0-0.4); Eosinophils % (Auto) 5.1 % (0.0-4.3); Hematocrit 32.4 % (35.5-45.6); Hemoglobin 10.4 gm/dl (11.8-15.2); Lymphocytes # (Auto) 0.5 K/mm3 (1.2-5.4); Lymphocytes % (Auto) 12.5 % (13.4-35.0); Mean Corpuscular HGB Conc 32 % (32-34); Mean Corpuscular Hemoglobin 26 pg (28-32); Mean Corpuscular Volume 82 fl (84-94); Monocytes # (Auto) 0.7 K/mm3 (0.0-0.8); Monocytes % (Auto) 15.5 % (0.0-7.3); Platelet Count 114 K/mm3 (140-440); Red Blood Count 3.96 M/mm3 (3.65-5.03); Red Cell Distribution Width 21.8 % (13.2-15.2)
[2017-11-10 06:35] LABS: Calcium 9.5 mg/dL (8.4-10.2)
--- NOTE | 2017-11-10 09:05 | Progress Note ---
Assessment and Plan Assessment: -Tunneled HD catheter site infection, status post removal on 11/06/17. Blood cultures and catheter tip negative. -Acute confusion/hallucinations. 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 Resolved. -Leukopenia. ?antibiotic related. Improved. -Thrombocytopenia. -End-stage renal disease on hemodialysis. -Type 2 DM. -Left flank/back pain after a fall. Plan: -Continue intravenous vancomycin and gentamicin for 4 more days with HD. -Monitor CBC as outpatient (leukopenia and thrombocytopenia) -Ok to d/c per ID. -d/w RN, pt. Thank you for your consultation, will follow up with you. Kerri Aburto MD Infectious Diseases Specialist [facility] ([facility]) M [phone] Subjective Date of service: 11/10/17 Principal diagnosis: Infected permcath Interval history: Afebrile. Not longer confused. Microbiology: Blood cultures: 11/06 NGTD Catheter tip cx 11/06 Neg Current Antimicrobials: IV gentamicin 11/09- Vancomycin 11/06- Prior antimicrobials Zosyn 11/06-11/07 Cefepime 11/07-11/09 Objective - Exam Narrative Exam: General appearance: AA male. In NAD. Awake, alert, oriented to person, place, time. Eyes: anicteric sclerae, moist conjunctivae; PERRLA. HENT: Atraumatic; oropharynx clear with moist mucous membranes and no mucosal ulcerations/no oral thrush; normal hard and soft palate. Normal external ears. Neck: Trachea midline; supple, no thyromegaly or lymphadenopathy. Lungs: CTA, with normal respiratory effort and no intercostal retractions. CV: S1,S2. Abdomen: Obese. Soft. +BS. Extremities: Left BKA. LUE AVG, site has no erythema, no tenderness. Skin: No rash. Prior HD catheter site exit is less edematous, no drainage. Neuro: Awake, alert, non-focal. - Constitutional Vitals: Vital Signs Temp Pulse Resp BP Pulse Ox 98.0 F 62 16 127/63 100 11/10/17 05:48 11/10/17 05:48 11/10/17 05:48 11/10/17 05:48 11/10/17 05:48 Temperature -Last 24 Hours Temperature 98.0 F Temperature 97.8 F Temperature 98.0 F Temperature 97.0 F - Labs CBC & Chem 7: 11/10/17 10:08 11/10/17 05:27 Labs: Abnormal lab results 11/10/17 11/10/17 Range/Units 05:27 05:27 WBC 4.3 L (4.5-11.0) K/mm3 Hgb 10.4 L (11.8-15.2) gm/dl Hct 32.4 L (35.5-45.6) % MCV 82 L (84-94) fl MCH 26 L (28-32) pg RDW 21.8 H (13.2-15.2) % Plt Count 114 L (140-440) K/mm3 Lymph % (Auto) 12.5 L (13.4-35.0) % [place] % (Auto) 15.5 H (0.0-7.3) % Eos % (Auto) 5.1 H (0.0-4.3) % Lymph # 0.5 L (1.2-5.4) K/mm3 Potassium 5.6 H (3.6-5.0) mmol/L Chloride 95.2 L (98-107) mmol/L BUN 78 H (9-20) mg/dL Creatinine 10.9 H (0.8-1.5) mg/dL Glucose 102 H (75-100) mg/dL
--- NOTE | 2017-11-10 10:31 | Progress Note ---
Assessment and Plan Assessment and plan: Patient is 72 yo man with a history of hypertension, AOCD, pvd with left BKA and ESRD on hemodialysis who was admitted for right upper chest wall infection of PermCath requiring removal on 11/06/17 Infected venous access port Permacath removed Initiated on IV abx --Zosyn and Vancomycin pending cultures Hyperkalemia For HD Was given INsulin/Dextroe and Kayexalate in ED ESRD (end stage renal disease) on dialysis Cont HD Patient has AVF Anemia of chronic disease Epogen monitor cbc closely HTN (hypertension) Cont antihypertensives T2DM (type 2 diabetes mellitus) with Peripheral neuropathy Cont coverage Cont Gabapentin HLD (hyperlipidemia) Cont statins Depression Cont Fluoxetine Constipation used Dulcolax suppository, resolved with the suppository h/o CAD (coronary artery disease) medical management DVT prophylaxis On Heparin left flank/side pains after fall told to ID but pt did not mention to me because the pains were not bad, also no history of LOC: will get xray to rule out fracture, 2v CXR IMPRESSION: 1. Right middle and lower lobe atelectasis versus consolidations and small right pleural effusion mildly decreased in the interval. Clinical correlation and radiographic followup after 4-6 weeks advised to document resolution. 2v Abdominal XR IMPRESSION: 1. Nonspecific bowel gas pattern, which may be secondary to constipation or represent adynamic ileus. Followup may be warranted. -will give Dulcolax suppository, I am not sure if he got it yesterday. Disposition: continue inpatient care until abx is arranged with hemodialysis, spoke with case manrhonda Jay and she is not aware of any arrangement done. D/W ID, Dr. Almonte, if cultures negative then abx for 1-2 weeks. 11/09/17 Acute Encephalopathy,?medication induced: I was going to discharge patient today but ID and nurse says that patient was hallucinating. So, I went back to re-evaluate pt. I sat down and spent quite a bit of time with him. He gets mad with orientation type of questions. He says, "I know I was confused couple days ago because they gave me too much medications, they gave me neurontin and 2 percocets when i usually take one". Then when I asked him did he know his location, he says, "I'm at this place where a 10/15 use to be". He doesn't know his location but he knows the year, month, day. I told him to call his with his cell phone and he was unable to do that. D/w Dr. Aburto, sometimes cefepime can cause this, so she will change abx and observe 11/10/17: a/o x 3. Encephalopathy resolved suspect medication induced History Interval history: Patient was seen and examined. Follow-up on current diagnosis dialysis catheter infection s/p removal. Overnight uneventful. Patient denies any chest pain, shortness breath, nausea/vomiting or severe headaches. Imaging, nursing note, chart, labs and old chart reviewed. Discussed with patient. Hospitalist Physical - Physical exam Narrative exam: GEN: WDWN, NAD, Awake, Alert, Orientated x 3, HEENT: NCAT, EOMI, PERRL, OP Clear NECK: supple, no adenopathy, no thyromegaly, no JVD CVS/HEART: RRR, normal S1S2, pulses present bilaterally CHEST/LUNGS: CTA B, Symmetrical chest expansion, good air entry bilaterally GI/Abdomen: soft, NTND, good bowel sounds, no guarding or rebound /Bladder: no suprapubic tenderness, no CVA or paraspinal tenderness EXT/Skin: no c/c/e, no obvious rash MSK: FROM x 4 , left bKA Neuro: CN 2-12 grossly intact, no new focal deficits Psych: calm - Constitutional Vitals: Temp Pulse Resp BP Pulse Ox 98.0 F 62 16 127/63 100 11/10/17 05:48 11/10/17 05:48 11/10/17 05:48 11/10/17 05:48 11/10/17 05:48 General appearance: Present: no acute distress Results - Labs CBC & Chem 7: 11/10/17 05:27 11/10/17 05:27 Labs: Laboratory Last Values WBC 4.3 K/mm3 (4.5-11.0) L 11/10/17 05:27 RBC 3.96 M/mm3 (3.65-5.03) 11/10/17 05:27 Hgb 10.4 gm/dl (11.8-15.2) L 11/10/17 05:27 Hct 32.4 % (35.5-45.6) L 11/10/17 05:27 MCV 82 fl (84-94) L 11/10/17 05:27 MCH 26 pg (28-32) L 11/10/17 05:27 MCHC 32 % (32-34) 11/10/17 05:27 RDW 21.8 % (13.2-15.2) H 11/10/17 05:27 Plt Count 114 K/mm3 (140-440) L 11/10/17 05:27 Lymph % (Auto) 12.5 % (13.4-35.0) L 11/10/17 05:27 [place] % (Auto) 15.5 % (0.0-7.3) H 11/10/17 05:27 Eos % (Auto) 5.1 % (0.0-4.3) H 11/10/17 05:27 Baso % (Auto) 1.0 % (0.0-1.8) 11/10/17 05:27 Lymph # 0.5 K/mm3 (1.2-5.4) L 11/10/17 05:27 [place] # 0.7 K/mm3 (0.0-0.8) 11/10/17 05:27 Eos # 0.2 K/mm3 (0.0-0.4) 11/10/17 05:27 Baso # 0.0 K/mm3 (0.0-0.1) 11/10/17 05:27 Seg Neutrophils % 65.9 % (40.0-70.0) 11/10/17 05:27 Seg Neutrophils # 2.8 K/mm3 (1.8-7.7) 11/10/17 05:27 PT 16.4 Sec. (12.2-14.9) H 11/06/17 15:21 INR 1.25 (0.87-1.13) H 11/06/17 15:21 APTT 30.6 Sec. (24.2-36.6) 11/06/17 15:21 Sodium 139 mmol/L (137-145) 11/10/17 05:27 Potassium 5.6 mmol/L (3.6-5.0) H 11/10/17 05:27 Chloride 95.2 mmol/L (98-107) L 11/10/17 05:27 Carbon Dioxide 24 mmol/L (22-30) 11/10/17 05:27 Anion Gap 25 mmol/L 11/10/17 05:27 BUN 78 mg/dL (9-20) H 11/10/17 05:27 Creatinine 10.9 mg/dL (0.8-1.5) H 11/10/17 05:27 Estimated GFR 6 ml/min 11/10/17 05:27 BUN/Creatinine Ratio 7 % 11/10/17 05:27 Glucose 102 mg/dL (75-100) H 11/10/17 05:27 POC Glucose 76 (70-105) 11/06/17 21:58 Hemoglobin A1c 6.2 % (4-6) H 11/06/17 22:53 Calcium 9.5 mg/dL (8.4-10.2) 11/10/17 05:27 Total Bilirubin 0.40 mg/dL (0.1-1.2) 11/07/17 04:28 AST 23 units/L (5-40) 11/07/17 04:28 ALT 15 units/L (7-56) 11/07/17 04:28 Alkaline Phosphatase 166 units/L (35-129) H 11/07/17 04:28 Total Protein 7.9 g/dL (6.3-8.2) 11/07/17 04:28 Albumin 4.0 g/dL (3.9-5) 11/07/17 04:28 Albumin/Globulin Ratio 1.0 % 11/07/17 04:28 Random Vancomycin 23.6 ug/mL (0-40.0) 11/08/17 05:57
[2017-11-10 10:57] LABS: Basophils # (Auto) 0.1 K/mm3 (0.0-0.1); Eosinophils # (Auto) 0.2 K/mm3 (0.0-0.4); Eosinophils % (Auto) 4.1 % (0.0-4.3); Hemoglobin 11.1 gm/dl (11.8-15.2); Lymphocytes # (Auto) 0.6 K/mm3 (1.2-5.4); Lymphocytes % (Auto) 12.1 % (13.4-35.0); Mean Corpuscular HGB Conc 32 % (32-34); Mean Corpuscular Hemoglobin 27 pg (28-32); Mean Corpuscular Volume 84 fl (84-94); Monocytes # (Auto) 0.7 K/mm3 (0.0-0.8); Monocytes % (Auto) 12.7 % (0.0-7.3); Platelet Count 130 K/mm3 (140-440); Red Blood Count 4.18 M/mm3 (3.65-5.03)
--- NOTE | 2017-11-10 11:01 | Progress Note ---
Assessment and Plan - Patient Problems (1) ESRD (end stage renal disease) on dialysis Current Visit: Yes Status: Chronic Plan to address problem: cont HD on MWF schedule. used RUE AVG without problems. ID recommends IV vanco/ gent for 4 more days. will arrange at HD clinic upon discharge. stable for discharge from renal stand point (2) Infected venous access port Current Visit: Yes Status: Acute Qualifiers: Encounter type: initial encounter Qualified Code(s): T80.219A - Unspecified infection due to central venous catheter, initial encounter Plan to address problem: Cont ABXs as per ID. pending final blood culture results. If pt requires vanco upon discharge, it can be arranged at HD clinic Infected catheter was removed. (3) Hyperkalemia Current Visit: Yes Status: Acute Plan to address problem: resolved with HD, cont 2g K renal diet (4) HTN (hypertension) Current Visit: Yes Status: Chronic Qualifiers: Hypertension type: essential hypertension Qualified Code(s): I10 - Essential (primary) hypertension Plan to address problem: resume home BP regimen (5) T2DM (type 2 diabetes mellitus) Current Visit: Yes Status: Chronic Qualifiers: Diabetes mellitus terminal operator insulin use: without alf use Plan to address problem: Diabetic treatment per primary team. (6) Anemia of chronic disease Current Visit: No Status: Chronic Plan to address problem: Goal hb of 10-11.5. no EPO needed at present Subjective Date of service: 11/10/17 Principal diagnosis: Infected permcath Interval history: Pt awake, alert, denies fever, chills, n/v/d Objective - Vital Signs Vital signs: Vital Signs - 12hr 11/10/17 05:48 Temperature 98.0 F Pulse Rate 62 Respiratory 16 Rate Blood Pressure 127/63 O2 Sat by Pulse 100 Oximetry - General Appearance General appearance: well-developed, well-nourished, appears stated age EENT: ATNC, PERRL, mucous membranes moist Neck: no JVD Respiratory: Present: Clear to Ascultation Cardiology: regular, S1S2 Gastrointestinal: normoactive bowel sounds Integumentary: no rash, other (no edema ) Neurologic: no focal deficit, alert and oriented x3, strength 5/5, CN 3-12 intact Psychiatric: mood/affect appropriate, cooperative - Lab 11/10/17 10:08 11/10/17 05:27 Most recent lab results Calcium 9.5 mg/dL (8.4-10.2) 11/10/17 05:27
[2017-11-10] MEDS: IMDUR PO SCH (13:31)
[2017-11-10] MEDS: LOPRESSOR PO SCH (13:31)
[2017-11-10] MEDS: CATAPRES PO SCH ×2 (13:31→16:53)
[2017-11-10] MEDS: HALFPRIN EC PO SCH ×2 (13:31→16:54)
[2017-11-10] MEDS: NEURONTIN PO SCH ×2 (13:32→16:54)
[2017-11-10] MEDS ORDERED: NACL 0.9 (PRIMING MACHINE ONLY DIALYSIS) MC ONE (14:30)
[2017-11-10] MEDS ORDERED: GARAMYCIN 80 MG in NACL 0.9% 100 ML IV SCH (16:00)
[2017-11-10] MEDS ORDERED: GARAMYCIN/NS 80 MG/100 ML 100 ML IV SCH (16:00)
[2017-11-10 16:22] VITALS: BP 134/61
[2017-11-10] MEDS: PLAVIX PO SCH (16:53)
[2017-11-10] MEDS: PROzac PO SCH (16:54)
[2017-11-10] MEDS: PEPCID PO SCH (16:54)
[2017-11-10] MEDS ORDERED: VANCOMYCIN/NS 1 GM/250 ML 1 GM/250 ML BAG IV SCH (18:00)
[2017-11-10] MEDS ORDERED: GARAMYCIN/NS 100 MG/100 ML 100 MG/100 ML BAG IV SCH (21:00)
== END 2017-11-10 18:35 | disposition home health service (06) | DRG 314 ==
LOC: ED 12:10 → 3A 18:06
PROVIDERS: ADMIT Internal Medicine; ATTEND Internal Medicine
PROC: 0JPTXXZ Removal of Tunneled Vascular Access Device from Trunk Subcutaneous Tissue and Fascia, External Approach (ICD-10-PCS; 2017-11-06)
PROC: 02PYX3Z Removal of Infusion Device from Great Vessel, External Approach (ICD-10-PCS; 2017-11-06)
PROC: 5A1D70Z Performance of Urinary Filtration, Intermittent, Less than 6 Hours Per Day (ICD-10-PCS; principal; 2017-11-07)
PROC: 5A1D70Z Performance of Urinary Filtration, Intermittent, Less than 6 Hours Per Day (ICD-10-PCS; 2017-11-07)
DX: T80.212A Local infection due to central venous catheter, initial encounter (principal); N18.6 End stage renal disease; G92 Toxic encephalopathy; T82.7XXA Infection and inflammatory reaction due to other cardiac and vascular devices, implants and grafts, initial encounter; I12.0 Hypertensive chronic kidney disease with stage 5 chronic kidney disease or end stage renal disease; E87.5 Hyperkalemia; F32.9 Major depressive disorder, single episode, unspecified; W07.XXXA Fall from chair, initial encounter; I25.10 Atherosclerotic heart disease of native coronary artery without angina pectoris; J45.909 Unspecified asthma, uncomplicated; E11.22 Type 2 diabetes mellitus with diabetic chronic kidney disease; M19.90 Unspecified osteoarthritis, unspecified site; Y83.8 Other surgical procedures as the cause of abnormal reaction of the patient, or of later complication, without mention of misadventure at the time of the procedure; E87.6 Hypokalemia; D63.8 Anemia in other chronic diseases classified elsewhere; E78.2 Mixed hyperlipidemia; E11.42 Type 2 diabetes mellitus with diabetic polyneuropathy; D69.6 Thrombocytopenia, unspecified; K59.00 Constipation, unspecified; Z89.512 Acquired absence of left leg below knee; Z79.82 Long term (current) use of aspirin; I25.2 Old myocardial infarction; Y93.89 Activity, other specified; Y92.89 Other specified places as the place of occurrence of the external cause; Y99.8 Other external cause status; Z99.2 Dependence on renal dialysis; Z79.84 Long term (current) use of oral hypoglycemic drugs; Z79.899 Other long term (current) drug therapy; Z79.01 Long term (current) use of anticoagulants; T36.1X5A Adverse effect of cephalosporins and other beta-lactam antibiotics, initial encounter
CPT/HCPCS: 36415; 71045; 71046; 74019; 80048; 80053; 80202; 82962; 83036; 85025; 85027; 85610; 85730; 87040; 87116; 93005; 93010; A9270-GY; G8978-GP; G8979-GP; G8980-GP; J0610; J0692; J1580; J1644; J1815; J2270; J2543; J3370; J7030; J7040

== ENCOUNTER 2018-07-16 | Inpatient (IN) | payer MEDICARE ==
--- NOTE | 2018-07-16 00:20 | Emergency Department Report ---
ED General Adult HPI - General Chief complaint: Dyspnea/Respdistress Stated complaint: DIFFICULTY IN BREATHING Time Seen by Provider: 07/16/18 00:19 Source: patient, EMS (ems notes not available at time of chart dictation), RN notes reviewed Mode of arrival: Stretcher Limitations: No Limitations - History of Present Illness Initial comments: This is a pleasant 73-year-old gentleman. The patient has a past medical history of end-stage renal disease, on dialysis, Friday, Friday, Friday. His last dialysis session was yesterday, and was of normal length and duration. Patient estimates that they took off around 2.5 L. His past history also includes diabetes, congestive heart failure, and coronary artery disease. Nephrology is Dr. Mason The patient presents to the emergency room today with complaint of pain was intermittent shortness of breath. This has been going on for around 2 weeks. It is intermittent, does not radiate anywhere, and does not have exacerbating or relieving factors. The patient has chronic 3 pillow orthopnea, which is not a new, worsening or different. He denies dietary indiscretions, feels like he is volume down, and denies posterior leg pain, posterior leg swelling, recent surgeries, recent hospitalizations, and overall denies DVT, pulmonary embolus risk factors. He has chronic 3 pillow orthopnea. He contacted 911 today because he felt like his shortness of breath got a little bit more intense. It is now basically resolved. He denies fevers and chills. He denies cough and mucus production at this time. -: Gradual, week(s) Consistency: intermittent Improves with: none Worsens with: none - Related Data Home Medications Medication Instructions Recorded Confirmed Last Taken Aspirin EC [Aspirin Enteric Coated 81 mg PO QDAY 11/06/17 02/21/18 02/21/18 TAB] AtorvaSTATin [Lipitor] 40 mg PO DAILY 11/06/17 02/21/18 02/21/18 Clopidogrel [Plavix] 75 mg PO QDAY 11/06/17 02/21/18 02/21/18 Gabapentin [Neurontin] 300 mg PO TID 11/06/17 02/21/18 02/21/18 Metoprolol [Lopressor TAB] 25 mg PO DAILY MDD BLOOD PRESSURE 11/06/17 02/21/18 02/21/18 cloNIDine [Catapres] 0.1 mg PO DAILY 11/06/17 02/21/18 02/21/18 Albuterol Sulfate [Albuterol 0.63% 0.63 mg IH PRN 02/21/18 02/21/18 02/21/18 NEBS] Brinzolamide/Brimonidine Tart 8 ml OP DAILY 02/21/18 02/21/18 02/21/18 [Simbrinza 1%-0.2% Eye Drops] Ciclopirox 0.77% (Nf) [Loprox 1 applic TP BID 02/21/18 02/21/18 02/21/18 0.77% Cream] Cinacalcet [Sensipar] 30 mg PO BID 02/21/18 02/21/18 02/21/18 Furosemide [Lasix] 80 mg PO BID 02/21/18 02/21/18 02/21/18 Ipratropium/Albuter (Nf) 2 puff INHALATION PRN 02/21/18 02/21/18 02/21/18 [Combivent Inhaler] Losartan Potassium [Cozaar] 50 mg PO DAILY 02/21/18 02/21/18 02/21/18 Sod,Ammonium,Potassium Lactate 1 mg TRANSDERMA PRN 02/21/18 02/21/18 02/21/18 [Amlactin Foot Cream] Tamsulosin HCl [Flomax] 0.4 mg PO BID 02/21/18 02/21/18 02/21/18 Temazepam [Restoril] 30 mg PO DAILY 02/21/18 02/21/18 02/21/18 Triamcinolone 0.1% [Kenalog 0.1% 1 applic TP TID 02/21/18 02/21/18 02/21/18 CREAM] traZODone [Desyrel] 50 mg PO QHS 02/21/18 02/21/18 02/21/18 Allergies Allergy/AdvReac Type Severity Reaction Status Date / Time No Known Allergies Allergy Verified 11/06/17 12:21 ED Review of Systems ROS: Stated complaint: DIFFICULTY IN BREATHING Other details as noted in HPI Constitutional: denies: fever Eyes: denies: eye discharge ENT: congestion Respiratory: shortness of breath Cardiovascular: denies: chest pain Gastrointestinal: other (she has chronic abdominal distention, which she reports is at baseline). denies: abdominal pain, nausea, vomiting Genitourinary: denies: dysuria Musculoskeletal: denies: back pain Skin: denies: lesions Neurological: weakness (chronic weakness, neither new, worse under different) ED Past Medical Hx - Past Medical History Previous Medical History?: Yes Hx Hypertension: Yes Hx Heart Attack/AMI: Yes Hx Congestive Heart Failure: No Hx Diabetes: Yes Hx Renal Disease: Yes (HD MWF) Hx Arthritis: Yes Hx Asthma: Yes Hx COPD: No Hx HIV: No Additional medical history: graft for dialysis on left upper arm. - Surgical History Past Surgical History?: Yes Hx Coronary Stent: Yes Additional Surgical History: left AV fistula, left BKA - Social History Smoking Status: Never Smoker - Medications Home Medications: Home Medications Medication Instructions Recorded Confirmed Last Taken Type Aspirin EC [Aspirin Enteric Coated 81 mg PO QDAY 11/06/17 02/21/18 02/21/18 History TAB] AtorvaSTATin [Lipitor] 40 mg PO DAILY 11/06/17 02/21/18 02/21/18 History Clopidogrel [Plavix] 75 mg PO QDAY 11/06/17 02/21/18 02/21/18 History Gabapentin [Neurontin] 300 mg PO TID 11/06/17 02/21/18 02/21/18 History Metoprolol [Lopressor TAB] 25 mg PO DAILY MDD BLOOD PRESSURE 11/06/17 02/21/18 02/21/18 History cloNIDine [Catapres] 0.1 mg PO DAILY 11/06/17 02/21/18 02/21/18 History Albuterol Sulfate [Albuterol 0.63% 0.63 mg IH PRN 02/21/18 02/21/18 02/21/18 His tory NEBS] Brinzolamide/Brimonidine Tart 8 ml OP DAILY 02/21/18 02/21/18 02/21/18 History [Simbrinza 1%-0.2% Eye Drops] Ciclopirox 0.77% (Nf) [Loprox 1 applic TP BID 02/21/18 02/21/18 02/21/18 History 0.77% Cream] Cinacalcet [Sensipar] 30 mg PO BID 02/21/18 02/21/18 02/21/18 History Furosemide [Lasix] 80 mg PO BID 02/21/18 02/21/18 02/21/18 History Ipratropium/Albuter (Nf) 2 puff INHALATION PRN 02/21/18 02/21/18 02/21/18 History [Combivent Inhaler] Losartan Potassium [Cozaar] 50 mg PO DAILY 02/21/18 02/21/18 02/21/18 History Sod,Ammonium,Potassium Lactate 1 mg TRANSDERMA PRN 02/21/18 02/21/18 02/21/18 History [Amlactin Foot Cream] Tamsulosin HCl [Flomax] 0.4 mg PO BID 02/21/18 02/21/18 02/21/18 History Temazepam [Restoril] 30 mg PO DAILY 02/21/18 02/21/18 02/21/18 History Triamcinolone 0.1% [Kenalog 0.1% 1 applic TP TID 02/21/18 02/21/18 02/21/18 History CREAM] traZODone [Desyrel] 50 mg PO QHS 02/21/18 02/21/18 02/21/18 History ED Physical Exam - General Limitations: No Limitations General appearance: alert, in no apparent distress - Head Head exam: Present: atraumatic, normocephalic - Eye Eye exam: Present: normal appearance, EOMI. Absent: nystagmus - ENT ENT exam: Present: normal exam, normal orophraynx, mucous membranes moist, normal external ear exam - Neck Neck exam: Present: normal inspection, full ROM. Absent: tenderness, meningismus - Respiratory Respiratory exam: Present: decreased breath sounds. Absent: respiratory d istress - Cardiovascular Cardiovascular Exam: Present: regular rate, normal rhythm. Absent: bradycardia, tachycardia, irregular rhythm, systolic murmur, diastolic murmur, rubs, gallop - GI/Abdominal GI/Abdominal exam: Present: soft, distended, other (minimal abdominal distention noted, with no redness, pus, streaking or tenderness. Patient reports that this is chronic for him, baseline, and unchanged). Absent: tenderness, guarding, rebound, rigid, pulsatile mass - Rectal Rectal exam: Present: deferred - Extremities Exam Extremities exam: Present: normal inspection, pedal edema, other (2+ pulses noted in the bilateral upper extremities. 2+ pulses noted in the right lower extremity. There is a left upper extremity graft, with no redness, pus or streaking. There is a left lower extremity below-knee amputation.) - Back Exam Back exam: Present: normal inspection, full ROM. Absent: paraspinal tenderness, vertebral tenderness - Neurological Exam Neurological exam: Present: alert, oriented X3, other (Extraocular movements intact. Tongue midline. No facial droop. Facial sensation intact to light touch in the V1, V2, V3 distribution bilaterally. 5 and 5 strength in 4 extremities.. Sensation is intact to light touch in 4 extremities.). Absent: motor sensory deficit - Psychiatric Psychiatric exam: Present: normal affect, normal mood - Skin Skin exam: Present: warm, dry, intact, normal color. Absent: rash ED Course Vital Signs 07/16/18 01:03 Temperature 97.6 F Pulse Rate 60 Respiratory 14 Rate Blood Pressure 114/61 [Right] O2 Sat by Pulse 99 Oximetry - Consultations Consultation #1: 07/16/18 01:40 Discussed with nephrology, Dr. Owens, who will follow in consultation. ED Medical Decision Making - Lab Data Result diagrams: 07/16/18 00:50 07/16/18 00:50 Vital Signs 07/16/18 01:03 Temperature 97.6 F Pulse Rate 60 Respiratory 14 Rate Blood Pressure 114/61 [Right] O2 Sat by Pulse 99 Oximetry Lab Results 07/16/18 Range/Units 00:50 WBC 3.1 L (4.5-11.0) K/mm3 RBC 3.59 L (3.65-5.03) M/mm3 Hgb 11.4 L (11.8-15.2) gm/dl Hct 33.5 L (35.5-45.6) % MCV 93 (84-94) fl MCH 32 (28-32) pg MCHC 34 (32-34) % RDW 17.9 H (13.2-15.2) % Plt Count 104 L (140-440) K/mm3 - EKG Data -: EKG Interpreted by Me EKG shows normal: sinus rhythm - EKG Data 07/16/18 01:25 EKG shows a sinus rhythm with an extreme right axis deviation, there is a right bundle branch block, atrial premature complexes, Q waves noted in the inferior leads, nonspecific T-wave abnormalities V2 V3, there is motion artifact, the patient is not having chest pain, this is an abnormal EKG. This EKG is not consistent with an ST elevation myocardial infarction. Extreme right axis deviation is old, Q waves appear to be old, right bundle branch block appears to be old, this EKG is essentially unchanged from her prior EKG from 02/22/2018. - Radiology Data Radiology results: pending, report reviewed, image reviewed Print Report Referring Physician: PATRICIA LOOMIS Patient Name: MOHINDER SKINNER Date of : 1945 Sex: Male Report Date: 2018-07-16 Report Status: Finalized Findings [facility] [address] [place] [address] XRay Report Signed Patient: MOHINDER SKINNER MR#: [id number] : 1945 Acct:[id number] Age/Sex: 73 / M ADM Date: 07/16/18 Loc: ED Attending Dr: Ordering Physician: PATRICIA LOOMIS MD Date of Service: 07/16/18 Procedure(s): XR chest 1V ap Accession Number(s): [id number] cc: PATRICIA LOOMIS MD Fluoro Time In Minutes: PROCEDURE: XR CHEST 1V AP TECHNIQUE: Chest radiograph single view. HISTORY: dyspnea COMPARISONS: February 21, 2018 . FINDINGS: Heart: Normal. Mediastinum/Vessels: Normal. Lungs/Pleural space: There is opacification in the right lower lung. Infiltrates and atelectasis are within the differential. Slight right effusion is suspected. The left lung is clear.. Bony thorax: No acute osseous abnormality. Life support devices: None. IMPRESSION: Opacification right lower lung consistent with combination of infiltrate and atelectasis. Slight right effusion is suspected.. This document is electronically signed by Luci Jarvis DO., July 16 2018 12:51:35 AM ET Transcribed By: [facility] Dictated By: LUCI JARVIS MD Electronically Authenticated By: LUCI JARVIS MD Signed Date/Time: 07/16/18 0053 - Medical Decision Making Differential diagnosis, including not limited to: Pneumonia, pleural effusion, pulmonary hypertension, fluid overload, renal insufficiency, hyperkalemia Assessment and plan: 73-year-old gentleman, afebrile, with reassuring vital signs, looks remarkably well for stated age and chronic medical conditions, with intermittent pain with shortness of breath, felt to have a moderate to large size right-sided consolidation, suggestive of pneumonia, with a pleural effusion. Patient is very well-appearing, however, given size of infiltrate, advanced age, medical comorbidities, I would recommend admission to the hospital for airway observation, and broad-spectrum antibiotics. I have discussed this with the patient, who verbalizes understanding, and he was amenable to this plan of care. 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 The hospital physician, Dr. Kieran Tellez, has accepted the patient to the medical service. Critical care attestation.: If time is entered above; I have spent that time in minutes in the direct care of this critically ill patient, excluding procedure time. ED Disposition Clinical Impression: ESRD (end stage renal disease) on dialysis, Pneumonia Disposition: 09 OP ADMIT IP TO THIS HOSP Is pt being admited?: Yes Condition: Good Instructions: Bacterial Pneumonia (ED) Referrals: TOMY HOPE MD [Primary Care Provider] - 3-5 Days
--- NOTE | 2018-07-16 00:53 | XRay Report ---
PROCEDURE: XR CHEST 1V AP TECHNIQUE: Chest radiograph single view. HISTORY: dyspnea COMPARISONS: February 21, 2018 . FINDINGS: Heart: Normal. Mediastinum/Vessels: Normal. Lungs/Pleural space: There is opacification in the right lower lung. Infiltrates and atelectasis are within the differential. Slight right effusion is suspected. The left lung is clear.. Bony thorax: No acute osseous abnormality. Life support devices: None. IMPRESSION: Opacification right lower lung consistent with combination of infiltrate and atelectasis . Slight right effusion is suspected.. This document is electronically signed by Luci Jarvis DO., July 16 2018 12:51:35 AM ET
[2018-07-16 01:05] LABS: Hematocrit 33.5 % (35.5-45.6); Hemoglobin 11.4 gm/dl (11.8-15.2); Mean Corpuscular HGB Conc 34 % (32-34); Mean Corpuscular Volume 93 fl (84-94); Platelet Count 104 K/mm3 (140-440); Red Blood Count 3.59 M/mm3 (3.65-5.03); Red Cell Distribution Width 17.9 % (13.2-15.2)
[2018-07-16] MEDS ORDERED: LEVAQUIN 500MG/100ML 500 MG/100 ML BAG IV ONE (01:19)
[2018-07-16] MEDS ORDERED: NACL 0.9% IV ONE (01:21)
[2018-07-16] MEDS ORDERED: VANCOMYCIN IV ONE (01:21)
[2018-07-16 01:33] LABS: Calcium 9.1 mg/dL (8.4-10.2)
[2018-07-16 01:45] LABS: INR 1.17 (0.87-1.13)
[2018-07-16] MEDS ORDERED: VANCOMYCIN 1,500 MG in NACL 0.9% 500 ML 500 ML IV ONE (02:00)
[2018-07-16] MEDS ORDERED: ZOFRAN IV PRN (02:23)
[2018-07-16] MEDS ORDERED: D50W (25GM) Syringe IV PRN (02:29)
[2018-07-16] MEDS ORDERED: NON-FORMULARY (Ipratropium/Albuter (Nf) 2 PUFF) INHALATION SCH (03:45)
[2018-07-16] MEDS ORDERED: [UNRECOGNIZED DRUG - OTHER] TRANSDERMA SCH (03:45)
--- NOTE | 2018-07-16 04:41 | History and Physical Report ---
CHIEF COMPLAINT: Shortness of breath. Other complaint include weakness. HISTORY OF PRESENT ILLNESS: The patient is a 73-year-old male with end-stage renal disease, on dialysis, presenting with shortness of breath, going on for about 2 weeks and shortness of breath is intermittent in nature. There is also history of weakness and there is no history of chest pain and no history of fever. Also, the patient denied history of nausea and vomiting and presented for evaluation. PAST MEDICAL HISTORY: Pertinent for hypertension, coronary artery disease, status post myocardial infarction, diabetes mellitus, end-stage renal disease, on dialysis on Mondays, Wednesdays, and Fridays, arthritis, asthma. PAST SURGICAL HISTORY: Pertinent for coronary artery stent placement, left AV fistula and left below-knee amputation. FAMILY HISTORY: Noncontributory. SOCIAL HISTORY: The patient does not smoke, does not drink alcohol, and does not use illicit drugs. MEDICATIONS: The patient's home medication includes albuterol nebulizer, frequency unknown as needed for shortness of breath. The patient is also on aspirin 81 mg by mouth daily, Lipitor 40 mg by mouth daily, Sensipar 30 mg by mouth twice daily, clonidine 0.1 mg daily, Plavix 75 mg daily, Dorzolamide Hydrochloride-Timolol Maleate 10 mL drops, Cosopt eye drops one drop to the eye daily, Lasix 80 mg by mouth daily, gabapentin 300 mg by mouth 3 times daily, Combivent inhaler one puff, frequency unknown, losartan potassium 50 mg by mouth daily, metoprolol 25 mg by mouth daily, sodium ammonium, potassium lactate 85 g cream, tamsulosin 0.4 mg by mouth twice daily, temazepam 15 mg by mouth daily, triamcinolone or Kenalog 0.1% cream applicable topically t.i.d. ALLERGIES: There are no known drug allergies. REVIEW OF SYSTEMS: CONSTITUTIONAL: There is no fever, no chills, no diaphoresis. HEENT: There is no headache or sore throat. CARDIOVASCULAR SYSTEM: There is no chest pain, but there is orthopnea. RESPIRATORY SYSTEM: There is shortness of breath and no cough. GASTROINTESTINAL SYSTEM: There is no nausea, no vomiting, no abdominal pain, diarrhea or constipation. NEUROLOGICAL SYSTEM: There is no numbness, no dizziness, no altered mental status, but there is generalized weakness. MUSCULOSKELETAL SYSTEM: There is no joint pain or swelling. DERMATOLOGICAL SYSTEM: There is no skin rash or itching. GENITOURINARY SYSTEM: There is no hematuria, but there is dysuria and no flank pain. Rest of system review is normal. PHYSICAL EXAMINATION: GENERAL: At the time of exam, the patient was found to be alert, oriented x 3, and not in acute distress. VITAL SIGNS: At the initial time of presentation showed temperature of 97.6 degrees Fahrenheit, pulse of 60, respirations 14, blood pressure 114/61, O2 sat of 99% on room air. HEENT: Pupils to be equal, round, reactive to light and accommodating. Extraocular muscles are intact. NECK: Supple with no JVD or carotid bruit. CARDIOVASCULAR: Showed normal first and second heart sounds with no gallops or murmur. RESPIRATORY SYSTEM: Show good air entry on both sides of the lungs with no abnormal breath sounds. GASTROINTESTINAL: Show abdomen to be full, soft, nontender with no organomegaly or rigidity. NEUROLOGICAL: Shows no focal deficit. MUSCULOSKELETAL: Show no joint swelling or tenderness. The patient has left below knee amputation. DERMATOLOGICAL SYSTEM: Show no skin rash. GENITOURINARY SYSTEM: Show no costovertebral angle tenderness. PERTINENT LABORATORY AND IMAGING STUDIES: The patient had a chest x-ray done and chest x-ray shows opacification in the right lower lung consistent with combination of infiltrate and atelectasis and there is finding of slight right effusion. Lab results, the patient's CBC showed low white count of 3.1, low hemoglobin of 11.4 and low hematocrit of 33.5 with normal MCV with coagulation studies showing elevated PT of 15.6 and chemistry shows high BUN of 21 and high creatinine of 4.8 with high magnesium level of 2.4. DIAGNOSES: 1. Right lung pneumonia. 2. Weakness. 3. End-stage renal disease, on dialysis. 4. Slight pleural effusion on the right side. PLAN OF CARE: 1. The patient will be admitted to medical floor. 2. The patient will be on IV Zosyn 3.375 grams q. 8 hours. 3. The patient will be on Tylenol 650 mg by mouth every 4 hours for fever and headache. 4. The patient will be on IV Zofran 4 mg every 8 hours as needed for nausea and vomiting. 5. The patient will be on albuterol nebulizer 2.5 mg q. 6 hours as needed for shortness of breath. 6. The patient will be on Accu-Chek before meals and at bedtime, followed by low-dose sliding scale using regular insulin coverage. 7. The patient's diet will be 2 g sodium consistent carbohydrate diet. 8. The patient will be on his home medications as shown in the medication reconciliation section. 9. The patient will have a nephrology consult with Dr. Mason for end-stage renal disease for hemodialysis. JOB# [id number] OCN/NTS
[2018-07-16] MEDS ORDERED: BENADRYL PO ONE (05:15)
[2018-07-16] MEDS: LASIX PO SCH ×3 (05:56→21:55)
[2018-07-16] MEDS ORDERED: NON-FORMULARY (Albuterol Sulfate [Albuterol 0.63% Nebs] 0.63 MG) IH SCH (06:00)
[2018-07-16] MEDS ORDERED: ZOSYN/NS 3.375GM/50ML 3.375 GM/50 ML BAG IV SCH (06:00)
[2018-07-16] MEDS: HumuLIN R SUB-Q SCH ×4 (07:13→23:07)
[2018-07-16] MEDS: NEURONTIN PO SCH ×3 (08:00→21:54)
[2018-07-16] MEDS ORDERED: PROVENTIL IH PRN (08:10)
[2018-07-16] MEDS: KENALOG TP SCH ×3 (09:16→21:53)
[2018-07-16] MEDS: LOPRESSOR PO SCH (11:14)
[2018-07-16] MEDS: FLOMAX PO SCH ×2 (11:14→21:53)
[2018-07-16] MEDS: PLAVIX PO SCH (11:15)
[2018-07-16] MEDS: SENSIPAR PO SCH ×2 (11:15→21:54)
[2018-07-16] MEDS: COZAAR PO SCH (11:15)
[2018-07-16] MEDS: CATAPRES PO SCH (11:15)
[2018-07-16] MEDS: HALFPRIN EC PO SCH (11:15)
[2018-07-16] MEDS: HEPARIN SUB-Q SCH ×2 (11:17→21:54)
[2018-07-16] MEDS ORDERED: ZOSYN/NS 2.25 GM/50ML 2.25 GM/50 ML BAG IV SCH (14:00)
[2018-07-16] MEDS: DUONEB *Not for PRN Use IH SCH ×2 (15:26→19:51)
[2018-07-16] MEDS: TYLENOL PO PRN (15:52)
--- NOTE | 2018-07-16 16:26 | Consultation ---
History of Present Illness - Reason for Consult Consult date: 07/16/18 Pneumonia, sepsis Requesting physician: SKYLER DELEON - History of Present Illness The patient is a 73-year-old male with ESRD on hemodialysis via left AV fistula, diabetes mellitus type 2, coronary artery disease, status post left BKA was admitted to the hospital with complaints of shortness of breath. Patient reports shortness of breath has been going on for the last 2 weeks. He denies any missed hemodialysis sessions. He denies any fever or cough. Chest x-ray on admission showed a right lower lobe opacity which was concerning for possible pneumonia with pleural effusion hence, he was admitted and started on antibiotics. Infectious diseases was consulted for further evaluation. Patient denies any fever or chills. Denies any cough or sputum production. Currently, he feels much better and feels close to his baseline. He has chronic shortness of breath. He has a previous history of smoking. Review of Systems: General: no fevers,chills or rigors HEENT: no new visual disturbance Respiratory: No cough, sputum, hemoptysis. shortness of breath chronic and now at baseline Cardiovascular: No chest pain, syncope Gastrointestinal: No nausea, vomiting or diarrhea Genitourinary: No dysuria or hematuria Musculoskeletal: No new or worsening neck pain or back pain Neurologic: No headaches, seizures Hematologic: No easy bruising or bleeding Endocrine: No night sweats or acute weight loss Skin: negative for rash, jaundice Psychiatric: No suicidal or homicidal ideation Medications and Allergies Allergies Allergy/AdvReac Type Severity Reaction Status Date / Time No Known Allergies Allergy Verified 11/06/17 12:21 Home Medications Medication Instructions Recorded Confirmed Last Taken Type Aspirin EC [Aspirin Enteric Coated 81 mg PO QDAY 11/06/17 07/16/18 02/21/18 Hist ory TAB] AtorvaSTATin [Lipitor] 40 mg PO DAILY 11/06/17 07/16/18 02/21/18 History Clopidogrel [Plavix] 75 mg PO QDAY 11/06/17 07/16/18 02/21/18 History Gabapentin [Neurontin] 300 mg PO TID 11/06/17 07/16/18 02/21/18 History Metoprolol [Lopressor TAB] 25 mg PO DAILY MDD BLOOD PRESSURE 11/06/17 07/16/18 02/21/18 History cloNIDine [Catapres] 0.1 mg PO DAILY 11/06/17 07/16/18 02/21/18 History Albuterol Sulfate [Albuterol 0.63% 0.63 mg IH PRN 02/21/18 07/16/18 02/21/18 History NEBS] Cinacalcet [Sensipar] 30 mg PO BID 02/21/18 07/16/18 02/21/18 History Furosemide [Lasix] 80 mg PO BID 02/21/18 07/16/18 02/21/18 History Ipratropium/Albuter (Nf) 2 puff INHALATION PRN 02/21/18 07/16/18 02/21/18 History [Combivent Inhaler] Losartan Potassium [Cozaar] 50 mg PO DAILY 02/21/18 07/16/18 02/21/18 History Sod,Ammonium,Potassium Lactate 1 mg TRANSDERMA PRN 02/21/18 07/16/18 02/21/18 History [Amlactin Foot Cream] Tamsulosin HCl [Flomax] 0.4 mg PO BID 02/21/18 07/16/18 02/21/18 History Temazepam [Restoril] 30 mg PO DAILY 02/21/18 07/16/18 02/21/18 History Triamcinolone 0.1% [Kenalog 0.1% 1 applic TP TID 02/21/18 07/16/18 02/21/18 History CREAM] Dorzolamide HCl/Timolol Maleat 1 drop OP DAILY 07/16/18 07/16/18 Unknown History [Cosopt Eye Drops] Active Meds: Active Medications Acetaminophen (Tylenol) 650 mg PO Q4H PRN PRN Reason: Fever >101 Last Admin: 07/16/18 15:52 Dose: 650 mg Documented by: Albuterol (Proventil) 2.5 mg IH Q6HRT PRN PRN Reason: Shortness Of Breath Albuterol/Ipratropium (Duoneb *Not For Prn Use*) 1 ampul IH Q6HRT [facility] Last Admin: 07/16/18 15:26 Dose: 1 ampul Documented by: Aspirin (Halfprin Ec) 81 mg PO QDAY [facility] Last Admin: 07/16/18 11:15 Dose: 81 mg Documented by: Atorvastatin Calcium (Lipitor) 40 mg PO DAILY [facility] Last Admin: 07/16/18 11:15 Dose: 40 mg Documented by: Cinacalcet (Sensipar) 30 mg PO BID [facility] Last Admin: 07/16/18 11:15 Dose: 30 mg Documented by: Clonidine HCl (Catapres) 0.1 mg PO DAILY [facility] Last Admin: 07/16/18 11:15 Dose: 0.1 mg Documented by: Clopidogrel Bisulfate (Plavix) 75 mg PO QDAY [facility] Last Admin: 07/16/18 11:15 Dose: 75 mg Documented by: Dextrose (D50w (25gm) Syringe) 50 ml IV PRN PRN PRN Reason: Hypoglycemia Furosemide (Lasix) 80 mg PO BID [facility] Last Admin: 07/16/18 11:14 Dose: 80 mg Documented by: Gabapentin (Neurontin) 300 mg PO TID [facility] Last Admin: 07/16/18 15:53 Dose: 300 mg Documented by: Heparin Sodium (Porcine) (Heparin) 5,000 unit SUB-Q Q12HR [facility] Last Admin: 07/16/18 11:17 Dose: 5,000 unit Documented by: Piperacillin Sod/Tazobactam Sod (Zosyn/Ns 2.25 Gm/50ml) 2.25 gm in 50 mls @ 100 mls/hr IV Q8HR [facility] Last Admin: 07/16/18 15:04 Dose: 100 mls/hr Documented by: Insulin Human Regular (Humulin R) 0 units SUB-Q AC [facility]; Protocol Last Admin: 07/16/18 12:01 Dose: Not Given Documented by: Insulin Human Regular (Humulin R) 0 units SUB-Q QHS [facility]; Protocol Losartan Potassium (Cozaar) 50 mg PO DAILY [facility] Last Admin: 07/16/18 11:15 Dose: 50 mg Documented by: Metoprolol Tartrate (Lopressor) 25 mg PO DAILY [facility] Last Admin: 07/16/18 11:14 Dose: 25 mg Documented by: Miscellaneous Medication (Dorzolamide Hcl/Timolol Maleat [Cosopt Eye Drops]) 1 drop OP DAILY [facility] Ondansetron HCl (Zofran) 4 mg IV Q8H PRN PRN Reason: Nausea And Vomiting Tamsulosin HCl (Flomax) 0.4 mg PO BID [facility] Last Admin: 07/16/18 11:14 Dose: 0.4 mg Documented by: Temazepam (Restoril) 30 mg PO DAILY [facility] Triamcinolone Acetonide (Kenalog) 1 applic TP TID [facility] Last Admin: 07/16/18 14:25 Dose: 1 applic Documented by: Physical Examination - Physical Exam Narrative exam: Physical Exam: Constitutional: Alert, cooperative. No acute distress Head, Ears, Nose: Normocephalic, atraumatic. External ears, nose normal Eyes: Conjunctivae/corneas clear. No icterus. No ptosis. Neck: Supple, no meningeal signs Oral: dentition fair with a few missing teeth, no thrush Cardiovascular: S1, S2 normal. Respiratory: Bilateral crackles, air entry is reduced on the right base GI: Soft, non-tender; bowel sounds normal. No peritoneal signs Musculoskeletal: No pedal edema, no cyanosis. Left BKA stump healed. Left arm AVF/AVG Skin: No rash or abscess Hem/Lymphatic: No palpable cervical or supraclavicular nodes. No lymphangitis Psych: Mood ok. Affect normal Neurological: Awake, alert, oriented. No gross abnormality - Constitutional Vitals: Vital Signs Temp Pulse Resp BP Pulse Ox 98.0 F 67 18 90/42 100 07/16/18 12:50 07/16/18 15:36 07/16/18 15:36 07/16/18 12:50 07/16/18 12:50 Temperature -Last 24 Hours Temperature 98.0 F Temperature 98.3 F Temperature 97.9 F Temperature 97.6 F Results - Labs CBC & Chem 7: 07/16/18 00:50 07/16/18 00:50 Labs: Abnormal lab results 07/16/18 07/16/18 07/16/18 Range/Units 00:50 00:50 00:50 WBC 3.1 L (4.5-11.0) K/mm3 RBC 3.59 L (3.65-5.03) M/mm3 Hgb 11.4 L (11.8-15.2) gm/dl Hct 33.5 L (35.5-45.6) % RDW 17.9 H (13.2-15.2) % Plt Count 104 L (140-440) K/mm3 PT 15.6 H (12.2-14.9) Sec. INR 1.17 H (0.87-1.13) Chloride (98-107) mmol/L BUN (9-20) mg/dL Creatinine (0.8-1.5) mg/dL Magnesium 2.40 H (1.7-2.3) mg/dL 07/16/18 Range/Units 00:50 WBC (4.5-11.0) K/mm3 RBC (3.65-5.03) M/mm3 Hgb (11.8-15.2) gm/dl Hct (35.5-45.6) % RDW (13.2-15.2) % Plt Count (140-440) K/mm3 PT (12.2-14.9) Sec. INR (0.87-1.13) Chloride 93.8 L (98-107) mmol/L BUN 21 H (9-20) mg/dL Creatinine 4.8 H (0.8-1.5) mg/dL Magnesium (1.7-2.3) mg/dL - Imaging and Cardiology Chest x-ray: report reviewed, image reviewed (Chest x-rays reviewed, images suggestive of right lower lobe opacity but similar to Feb 2018.) Assessment and Plan Cultures: 07/16/2018 blood culture: In progress A/P: 73-year-old male with ESRD on hemodialysis via left AV fistula, diabetes mellitus type 2, coronary artery disease, status post left BKA. Now with: 1) Right lower lobe pneumonia versus pleural effusion: Upon comparing his chest x-ray with the previous one from February 2018, this seems to be like a chronic process. Patient without any fever, chills, cough or expectoration. No leukocytosis. Pneumonia seems less likely. No antibiotics indicated. Recommend further evaluation with CT chest, possibly with contrast to also evaluate for other etiologies. 2) ESRD on hemodialysis 3) Diabetes mellitus type 2 4) Chronic leukopenia and thrombocytopenia: Appears to be at baseline Recs: CXR quite similar to prior xray from 02/2018 suggestive of R pleural effusion No fever, chills, cough or expectoration. No leukocytosis. Pneumonia seems less likely Antibiotics discontinued Further evaluation with CT chest, possibly with contrast to also evaluate for other etiologies (malignancy, PE, etc.) D/W Dr. Deleon. Ramon Joseph MD [facility] C: [phone] O: [phone] F: [phone]
--- NOTE | 2018-07-16 16:57 | Consultation ---
History of Present Illness Consult date: 07/16/18 Requesting physician: SKYLER DELEON Reason for consult: pneumonia, pleural effusion History of present illness: The patient is a 73-year-old male with ESRD on hemodialysis via left AV fistula, diabetes mellitus type 2, coronary artery disease, status post left BKA was admitted to the hospital with complaints of shortness of breath. Patient reports shortness of breath has been going on for the last 2 weeks. He denies any missed hemodialysis sessions. He denies any fever or cough. Chest x-ray on admission showed a right lower lobe opacity which was concerning for possible pneumonia with pleural effusion hence, he was admitted and started on antibiotics. Infectious diseases was consulted for further evaluation. Patient denies any fever or chills. Denies any cough or sputum production. Currently, he feels much better and feels close to his baseline. He has chronic shortness of breath. He has a previous history of smoking. Review of Systems: General: no fevers,chills or rigors HEENT: no new visual disturbance Respiratory: No cough, sputum, hemoptysis. shortness of breath chronic and now at baseline Cardiovascular: No chest pain, syncope Gastrointestinal: No nausea, vomiting or diarrhea Genitourinary: No dysuria or hematuria Musculoskeletal: No new or worsening neck pain or back pain Neurologic: No headaches, seizures Hematologic: No easy bruising or bleeding Endocrine: No night sweats or acute weight loss Skin: negative for rash, jaundice Psychiatric: No suicidal or homicidal ideation Medications and Allergies Allergies Allergy/AdvReac Type Severity Reaction Status Date / Time No Known Allergies Allergy Verified 11/06/17 12:21 Home Medications Medication Instructions Recorded Confirmed Last Taken Type Aspirin EC [Aspirin Enteric Coated 81 mg PO QDAY 11/06/17 07/16/18 02/21/18 History TAB] AtorvaSTATin [Lipitor] 40 mg PO DAILY 11/06/17 07/16/18 02/21/18 History Clopidogrel [Plavix] 75 mg PO QDAY 11/06/17 07/16/18 02/21/18 History Gabapentin [Neurontin] 300 mg PO TID 11/06/17 07/16/18 02/21/18 History Metoprolol [Lopressor TAB] 25 mg PO DAILY MDD BLOOD PRESSURE 11/06/17 07/16/18 02/21/18 History cloNIDine [Catapres] 0.1 mg PO DAILY 11/06/17 07/16/18 02/21/18 History Albuterol Sulfate [Albuterol 0.63% 0.63 mg IH PRN 02/21/18 07/16/18 02/21/18 History NEBS] Cinacalcet [Sensipar] 30 mg PO BID 02/21/18 07/16/18 02/21/18 History Furosemide [Lasix] 80 mg PO BID 02/21/18 07/16/18 02/21/18 History Ipratropium/Albuter (Nf) 2 puff INHALATION PRN 02/21/18 07/16/18 02/21/18 History [Combivent Inhaler] Losartan Potassium [Cozaar] 50 mg PO DAILY 02/21/18 07/16/18 02/21/18 History Sod,Ammonium,Potassium Lactate 1 mg TRANSDERMA PRN 02/21/18 07/16/18 02/21/18 History [Amlactin Foot Cream] Tamsulosin HCl [Flomax] 0.4 mg PO BID 02/21/18 07/16/18 02/21/18 History Temazepam [Restoril] 30 mg PO DAILY 02/21/18 07/16/18 02/21/18 History Triamcinolone 0.1% [Kenalog 0.1% 1 applic TP TID 02/21/18 07/16/18 02/21/18 History CREAM] Dorzolamide HCl/Timolol Maleat 1 drop OP DAILY 07/16/18 07/16/18 Unknown History [Cosopt Eye Drops] Active Meds: Active Medications Acetaminophen (Tylenol) 650 mg PO Q4H PRN PRN Reason: Fever >101 Last Admin: 07/16/18 15:52 Dose: 650 mg Documented by: Albuterol (Proventil) 2.5 mg IH Q6HRT PRN PRN Reason: Shortness Of Breath Albuterol/Ipratropium (Duoneb *Not For Prn Use*) 1 ampul IH Q6HRT [facility] Last Admin: 07/16/18 15:26 Dose: 1 ampul Documented by: Aspirin (Halfprin Ec) 81 mg PO QDAY [facility] Last Admin: 07/16/18 11:15 Dose: 81 mg Documented by: Atorvastatin Calcium (Lipitor) 40 mg PO DAILY [facility] Last Admin: 07/16/18 11:15 Dose: 40 mg Documented by: Cinacalcet (Sensipar) 30 mg PO BID [facility] Last Admin: 07/16/18 11:15 Dose: 30 mg Documented by: Clonidine HCl (Catapres) 0.1 mg PO DAILY [facility] Last Admin: 07/16/18 11:15 Dose: 0.1 mg Documented by: Clopidogrel Bisulfate (Plavix) 75 mg PO QDAY [facility] Last Admin: 07/16/18 11:15 Dose: 75 mg Documented by: Dextrose (D50w (25gm) Syringe) 50 ml IV PRN PRN PRN Reason: Hypoglycemia Furosemide (Lasix) 80 mg PO BID [facility] Last Admin: 07/16/18 11:14 Dose: 80 mg Documented by: Gabapentin (Neurontin) 300 mg PO TID [facility] Last Admin: 07/16/18 15:53 Dose: 300 mg Documented by: Heparin Sodium (Porcine) (Heparin) 5,000 unit SUB-Q Q12HR [facility] Last Admin: 07/16/18 11:17 Dose: 5,000 unit Documented by: Insulin Human Regular (Humulin R) 0 units SUB-Q AC [facility]; Protocol Last Admin: 07/16/18 12:01 Dose: Not Given Documented by: Insulin Human Regular (Humulin R) 0 units SUB-Q QHS [facility]; Protocol Losartan Potassium (Cozaar) 50 mg PO DAILY [facility] Last Admin: 07/16/18 11:15 Dose: 50 mg Documented by: Metoprolol Tartrate (Lopressor) 25 mg PO DAILY [facility] Last Admin: 07/16/18 11:14 Dose: 25 mg Documented by: Miscellaneous Medication (Dorzolamide Hcl/Timolol Maleat [Cosopt Eye Drops]) 1 drop OP DAILY [facility] Ondansetron HCl (Zofran) 4 mg IV Q8H PRN PRN Reason: Nausea And Vomiting Tamsulosin HCl (Flomax) 0.4 mg PO BID [facility] Last Admin: 07/16/18 11:14 Dose: 0.4 mg Documented by: Temazepam (Restoril) 30 mg PO DAILY [facility] Triamcinolone Acetonide (Kenalog) 1 applic TP TID [facility] Last Admin: 07/16/18 14:25 Dose: 1 applic Documented by: Physical Examination Vital signs: Vital Signs Pulse Resp BP Pulse Ox 60 14 118/57 100 07/16/18 01:00 07/16/18 01:00 07/16/18 01:00 07/16/18 01:00 Constitutional: Alert, cooperative. No acute distress Head, Ears, Nose: Normocephalic, atraumatic. External ears, nose normal Eyes: Conjunctivae/corneas clear. No icterus. No ptosis. Neck: Supple, no meningeal signs Oral: dentition fair with a few missing teeth, no thrush Cardiovascular: S1, S2 normal. Respiratory: Bilateral crackles, air entry is reduced on the right base GI: Soft, non-tender; bowel sounds normal. No peritoneal signs Musculoskeletal: No pedal edema, no cyanosis. Left BKA stump healed. Left arm A VF/AVG Skin: No rash or abscess Hem/Lymphatic: No palpable cervical or supraclavicular nodes. No lymphangitis Psych: Mood ok. Affect normal Neurological: Awake, alert, oriented. No gross abnormality Results - Laboratory Findings CBC and BMP: 07/18/18 04:56 07/18/18 04:56 PT/INR, D-dimer PT 15.6 Sec. (12.2-14.9) H 07/16/18 00:50 INR 1.17 (0.87-1.13) H 07/16/18 00:50 Abnormal lab findings: Abnormal Labs 07/16/18 07/16/18 07/16/18 00:50 00:50 00:50 WBC 3.1 L RBC 3.59 L Hgb 11.4 L Hct 33.5 L RDW 17.9 H Plt Count 104 L PT 15.6 H INR 1.17 H Chloride BUN Creatinine Magnesium 2.40 H 07/16/18 00:50 WBC RBC Hgb Hct RDW Plt Count PT INR Chloride 93.8 L BUN 21 H Creatinine 4.8 H Magnesium Assessment and Plan 73-year-old male with ESRD on hemodialysis via left AV fistula, diabetes mellitus type 2, coronary artery disease, status post left BKA. 1) Right lower lobe pneumonia versus pleural effusion: 2) ESRD on hemodialysis 3) Diabetes mellitus type 2 4) Chronic leukopenia and thrombocytopenia -CTchest to evaluate the right pleural effusion. Patient does not clinically appear to have a pneumonia. -If the effusion is significant will recommend diagnostic thoracentesis -VTE prophylaxis -Supplemental oxygen, wean off oxygen for O2 sats >90% -Supportive HD -Further recommendations based on the findings on CT chest. Care plan discussed with the patient. Care plan discussed with Dr. Deleon. Thank you for consultation. Will follow.
[2018-07-16] MEDS ORDERED: NACL 0.9% 100 ML IV PRN (17:06)
--- NOTE | 2018-07-16 17:08 | Consultation ---
History of Present Illness - Reason for Consult Consult date: 07/16/18 end stage renal disease Requesting physician: PATRICIA LOOMIS - History of Present Illness This is a 73 yo M well known to our group,with history of hypertension, coronary artery disease, end-stage renal disease on hemodialysis on a Friday schedule, now admitted at [facility] after presenting with SOB, GUERRERO, progressively worsening over the last week. in ER CXR showed evidence of right lower lobe opacity which was concerning for possible pneumonia with pleural effusion. Pt was admitted for IV ABX treatment. Renal consult requested for management of ESRD/HD. pt denies missing any HD treatments, he denies fever, chills, nausea, vomiting, CP, palpitations, dysuria, sondra pain. Past History Past Medical History: anemia, CAD, ESRD, hypertension, PVD Past Surgical History: PTCA, Other (AV fistula, Left BKA 2013, Cardiac cath, Glaucoma eye surgery, [employer] and stenting to left leg) Social history: . denies: IV drug use, full code, AND/DNR-allow natural Family history: cancer (Mother had Pancreatic CA), diabetes (mother, brother, sister), hypertension (mother, brother, sister), other Medications and Allergies Allergies Allergy/AdvReac Type Severity Reaction Status Date / Time No Known Allergies Allergy Verified 11/06/17 12:21 Home Medications Medication Instructions Recorded Confirmed Last Taken Type Aspirin EC [Aspirin Enteric Coated 81 mg PO QDAY 11/06/17 07/16/18 02/21/18 History TAB] AtorvaSTATin [Lipitor] 40 mg PO DAILY 11/06/17 07/16/18 02/21/18 History Clopidogrel [Plavix] 75 mg PO QDAY 11/06/17 07/16/18 02/21/18 History Gabapentin [Neurontin] 300 mg PO TID 11/06/17 07/16/18 02/21/18 History Metoprolol [Lopressor TAB] 25 mg PO DAILY MDD BLOOD PRESSURE 11/06/17 07/16/18 02/21/18 History cloNIDine [Catapres] 0.1 mg PO DAILY 11/06/17 07/16/18 02/21/18 History Albuterol Sulfate [Albuterol 0.63% 0.63 mg IH PRN 02/21/18 07/16/18 02/21/18 History NEBS] Cinacalcet [Sensipar] 30 mg PO BID 02/21/18 07/16/18 02/21/18 History Furosemide [Lasix] 80 mg PO BID 02/21/18 07/16/18 02/21/18 History Ipratropium/Albuter (Nf) 2 puff INHALATION PRN 02/21/18 07/16/18 02/21/18 History [Combivent Inhaler] Losartan Potassium [Cozaar] 50 mg PO DAILY 02/21/18 07/16/18 02/21/18 History Sod,Ammonium,Potassium Lactate 1 mg TRANSDERMA PRN 02/21/18 07/16/18 02/21/18 History [Amlactin Foot Cream] Tamsulosin HCl [Flomax] 0.4 mg PO BID 02/21/18 07/16/18 02/21/18 History Temazepam [Restoril] 30 mg PO DAILY 02/21/18 07/16/18 02/21/18 History Triamcinolone 0.1% [Kenalog 0.1% 1 applic TP TID 02/21/18 07/16/18 02/21/18 History CREAM] Dorzolamide HCl/Timolol Maleat 1 drop OP DAILY 07/16/18 07/16/18 Unknown History [Cosopt Eye Drops] Active Meds: Active Medications Acetaminophen (Tylenol) 650 mg PO Q4H PRN PRN Reason: Fever >101 Last Admin: 07/16/18 15:52 Dose: 650 mg Documented by: Albuterol (Proventil) 2.5 mg IH Q6HRT PRN PRN Reason: Shortness Of Breath Albuterol/Ipratropium (Duoneb *Not For Prn Use*) 1 ampul IH Q6HRT [facility] Last Admin: 07/16/18 15:26 Dose: 1 ampul Documented by: Aspirin (Halfprin Ec) 81 mg PO QDAY [facility] Last Admin: 07/16/18 11:15 Dose: 81 mg Documented by: Atorvastatin Calcium (Lipitor) 40 mg PO DAILY [facility] Last Admin: 07/16/18 11:15 Dose: 40 mg Documented by: Cinacalcet (Sensipar) 30 mg PO BID [facility] Last Admin: 07/16/18 11:15 Dose: 30 mg Documented by: Clonidine HCl (Catapres) 0.1 mg PO DAILY [facility] Last Admin: 07/16/18 11:15 Dose: 0.1 mg Documented by: Clopidogrel Bisulfate (Plavix) 75 mg PO QDAY [facility] Last Admin: 07/16/18 11:15 Dose: 75 mg Documented by: Dextrose (D50w (25gm) Syringe) 50 ml IV PRN PRN PRN Reason: Hypoglycemia Furosemide (Lasix) 80 mg PO BID [facility] Last Admin: 07/16/18 11:14 Dose: 80 mg Documented by: Gabapentin (Neurontin) 300 mg PO TID [facility] Last Admin: 07/16/18 15:53 Dose: 300 mg Documented by: Heparin Sodium (Porcine) (Heparin) 5,000 unit SUB-Q Q12HR [facility] Last Admin: 07/16/18 11:17 Dose: 5,000 unit Documented by: Sodium Chloride (Nacl 0.9%) 100 mls @ 999 mls/hr IV SHY PRN PRN Reason: Hypotension Insulin Human Regular (Humulin R) 0 units SUB-Q AC [facility]; Protocol Last Admin: 07/16/18 12:01 Dose: Not Given Documented by: Insulin Human Regular (Humulin R) 0 units SUB-Q QHS [facility]; Protocol Losartan Potassium (Cozaar) 50 mg PO DAILY [facility] Last Admin: 07/16/18 11:15 Dose: 50 mg Documented by: Metoprolol Tartrate (Lopressor) 25 mg PO DAILY [facility] Last Admin: 07/16/18 11:14 Dose: 25 mg Documented by: Miscellaneous Medication (Dorzolamide Hcl/Timolol Maleat [Cosopt Eye Drops]) 1 drop OP DAILY [facility] Ondansetron HCl (Zofran) 4 mg IV Q8H PRN PRN Reason: Nausea And Vomiting Tamsulosin HCl (Flomax) 0.4 mg PO BID [facility] Last Admin: 07/16/18 11:14 Dose: 0.4 mg Documented by: Temazepam (Restoril) 30 mg PO DAILY [facility] Triamcinolone Acetonide (Kenalog) 1 applic TP TID [facility] Last Admin: 07/16/18 14:25 Dose: 1 applic Documented by: Review of Systems All systems: negative Constitutional: weakness Cardiovascular: shortness of breath, dyspnea on exertion Exam - Vital Signs Vital signs: Vital Signs Pulse Resp BP Pulse Ox 60 14 118/57 100 07/16/18 01:00 07/16/18 01:00 07/16/18 01:00 07/16/18 01:00 - General Appearance General appearance: well-developed, well-nourished, appears stated age EENT: ATNC, PERRL, mucous membranes moist Neck: Present: neck supple Respiratory: Decreased Breath Sounds Heart: regular, S1S2 Gastrointestinal: Present: normoactive bowel sounds Integumentary: no rash, other (no edema ) Neurologic: no focal deficit, alert and oriented x3, strength 5/5, CN 3-12 intact Psychiatric: mood/affect appropriate, cooperative Results - Lab Results 07/16/18 00:50 07/16/18 00:50 Most recent lab results Calcium 9.1 mg/dL (8.4-10.2) 07/16/18 00:50 Magnesium 2.40 mg/dL (1.7-2.3) H 07/16/18 00:50 Assessment and Plan - Patient Problems (1) ESRD (end stage renal disease) on dialysis Current Visit: Yes Status: Chronic Plan to address problem: will cont HD on MWF schedule. (2) Pneumonia Current Visit: Yes Status: Acute Plan to address problem: cont ABXs as per ID (3) Hypertensive chronic kidney disease with stage 5 chronic kidney disease or end stage renal disease Current Visit: No Status: Acute Plan to address problem: BP controlled, monitor on current BP regimen (4) Anemia in ESRD (end-stage renal disease) Current Visit: Yes Status: Acute Plan to address problem: Hb at target. no need for further EPO
[2018-07-16] MEDS: RESTORIL PO SCH (23:11)
[2018-07-16] MEDS ORDERED: HEPARIN 10,000 UNITS/10 ML IV ONE (23:56)
[2018-07-17] MEDS: DUONEB *Not for PRN Use IH SCH ×4 (01:46→19:29)
[2018-07-17] MEDS: HEPARIN/ 0.45% NACL-25,000 UNIT/500 ML 25,000 UNIT/500 ML BAG IV SCH ×2 (03:03→09:19)
[2018-07-17 06:16] LABS: Hematocrit 30.3 % (35.5-45.6); Hemoglobin 10.3 gm/dl (11.8-15.2)
[2018-07-17 07:22] LABS: Partial Thromboplastin Time TNR Sec. (24.2-36.6)
[2018-07-17 07:25] LABS: INR TNR (0.87-1.13)
[2018-07-17] MEDS: HumuLIN R SUB-Q SCH ×4 (08:25→22:27)
--- NOTE | 2018-07-17 08:58 | Progress Note ---
Assessment and Plan Assessment and plan: 73M w pmh of htn, esrd MWF, CAD, neuropathy and BPH pw sob and orthopnea CT chest; RIght moderate effusion Diagnosis R pleural effusion Ascites FLuid overload PNA ruled out Plan thoracenteis ordered, send for cellcount, cytology, etc echo showed ef 40 in 02/22, cardiology input appreciated -Dw ID, he has chronic R lung opacity cw Effusion, not cw PNA -may also need paracentesis if ascites does not improve -cont IV lasix and UF with HD dvt ppx -heparin History Interval history: sob and orthopnea is improving no fever, no vomiting, no cp abdomen has painless distension Hospitalist Physical - Constitutional Vitals: Temp Pulse Resp BP Pulse Ox 97.8 F 63 20 103/55 98 07/17/18 08:01 07/17/18 08:31 07/17/18 08:01 07/17/18 08:01 07/17/18 08:31 General appearance: Present: mild distress - EENT Eyes: Present: PERRL ENT: hearing intact - Neck Neck: Present: supple, normal ROM - Respiratory Respiratory effort: normal Respiratory: right: diminished, rales - Cardiovascular Rhythm: regular Heart Sounds: Present: S1 & S2 - Extremities Extremities: no ischemia Peripheral Pulses: within normal limits - Abdominal General gastrointestinal: soft, non-tender, distended (with shifting dullness) - Integumentary Integumentary: Present: clear, warm, dry - Psychiatric Psychiatric: appropriate mood/affect, intact judgment & insight - Neurologic Neurologic: CNII-XII intact, moves all extremities Results - Labs CBC & Chem 7: 07/17/18 05:52 07/16/18 00:50 Labs: Laboratory Last Values WBC 3.1 K/mm3 (4.5-11.0) L 07/16/18 00:50 RBC 3.59 M/mm3 (3.65-5.03) L 07/16/18 00:50 Hgb 10.3 gm/dl (11.8-15.2) L 07/17/18 05:52 Hct 30.3 % (35.5-45.6) L 07/17/18 05:52 MCV 93 fl (84-94) 07/16/18 00:50 MCH 32 pg (28-32) 07/16/18 00:50 MCHC 34 % (32-34) 07/16/18 00:50 RDW 17.9 % (13.2-15.2) H 07/16/18 00:50 Plt Count 94 K/mm3 (140-440) L 07/17/18 05:52 PT TNR 07/17/18 05:52 INR TNR 07/17/18 05:52 APTT TNR 07/17/18 05:52 D-Dimer 6405.88 ng/mlDDU (0-234) H 07/16/18 16:54 Heparin Anti-Xa Level 0.76 U.I./ml (0.3-0.7) H 07/17/18 07:53 Sodium 137 mmol/L (137-145) 07/16/18 00:50 Potassium 3.8 mmol/L (3.6-5.0) 07/16/18 00:50 Chloride 93.8 mmol/L (98-107) L 07/16/18 00:50 Carbon Dioxide 29 mmol/L (22-30) 07/16/18 00:50 Anion Gap 18 mmol/L 07/16/18 00:50 BUN 21 mg/dL (9-20) H 07/16/18 00:50 Creatinine 4.8 mg/dL (0.8-1.5) H 07/16/18 00:50 Estimated GFR 15 ml/min 07/16/18 00:50 BUN/Creatinine Ratio 4 % 07/16/18 00:50 Glucose 98 mg/dL (75-100) 07/16/18 00:50 POC Glucose 104 (70-105) 07/17/18 07:39 Lactic Acid 1.20 mmol/L (0.7-2.0) 07/16/18 02:17 Calcium 9.1 mg/dL (8.4-10.2) 07/16/18 00:50 Magnesium 2.40 mg/dL (1.7-2.3) H 07/16/18 00:50 Active Medications - Current Medications Current Medications: Generic Name Dose Route Start Last Admin Trade Name Freq PRN Reason Stop Dose Admin Acetaminophen 650 mg 07/16/18 02:20 07/16/18 15:52 Tylenol PO 650 mg Q4H PRN Administration Fever >101 Albuterol 2.5 mg 07/16/18 08:10 Proventil IH Q6HRT PRN Shortness Of Breath Albuterol/Ipratropium 1 ampul 07/16/18 14:00 07/17/18 08:32 Duoneb *Not For Prn Use* IH 1 ampul Q6HRT ROBB Administration Aspirin 81 mg 07/16/18 10:00 07/16/18 11:15 Halfprin Ec PO 81 mg QDAY ROBB Administration Atorvastatin Calcium 40 mg 07/16/18 10:00 07/16/18 11:15 Lipitor PO 40 mg DAILY ROBB Administration Cinacalcet 30 mg 07/16/18 10:00 07/16/18 21:54 Sensipar PO 30 mg BID ROBB Administration Clonidine HCl 0.1 mg 07/16/18 10:00 07/16/18 11:15 Catapres PO 0.1 mg DAILY ROBB Administration Clopidogrel Bisulfate 75 mg 07/16/18 10:00 07/16/18 11:15 Plavix PO 75 mg QDAY ROBB Administration Dextrose 50 ml 07/16/18 02:29 D50w (25gm) Syringe IV PRN PRN Hypoglycemia Furosemide 80 mg 07/16/18 05:00 07/16/18 21:55 Lasix PO 80 mg BID ROBB Administration Gabapentin 300 mg 07/16/18 08:00 07/16/18 21:54 Neurontin PO 300 mg TID ROBB Administration Sodium Chloride 100 mls @ 999 mls/hr 07/16/18 17:06 Nacl 0.9% IV SHY PRN Hypotension Heparin Sodium/Sodium Chloride 25,000 unit in 500 mls @ 24 mls/hr 07/16/18 23:45 07/17/18 03:03 Heparin/ 0.45% Nacl-25,000 Unit/500 Ml IV 1,200 units/hr TITR ROBB 24 mls/hr Administration Protocol 1,200 UNITS/HR Insulin Human Regular 0 units 07/16/18 07:30 07/17/18 08:25 Humulin R SUB-Q Not Given AC [facility] Protocol Insulin Human Regular 0 units 07/16/18 22:00 07/16/18 23:07 Humulin R SUB-Q Not Given QHS [facility] Protocol Losartan Potassium 50 mg 07/16/18 10:00 07/16/18 11:15 Cozaar PO 50 mg DAILY ROBB Administration Metoprolol Tartrate 25 mg 07/16/18 10:00 07/16/18 11:14 Lopressor PO 25 mg DAILY ROBB Administration Miscellaneous Medication 1 drop 07/16/18 10:00 Dorzolamide Hcl/Timolol Maleat [Cosopt Eye Drops] OP DAILY ROBB Ondansetron HCl 4 mg 07/16/18 02:23 Zofran IV Q8H PRN Nausea And Vomiting Tamsulosin HCl 0.4 mg 07/16/18 10:00 07/16/18 21:53 Flomax PO 0.4 mg BID ROBB Administration Temazepam 30 mg 07/16/18 10:00 07/16/18 23:11 Restoril PO Not Given DAILY ROBB Triamcinolone Acetonide 1 applic 07/16/18 08:00 07/16/18 21:53 Kenalog TP 1 applic TID ROBB Administration
[2018-07-17 09:07] LABS: Partial Thromboplastin Time > 240.0 Sec. (24.2-36.6)
[2018-07-17] MEDS: NEURONTIN PO SCH ×3 (09:13→20:32)
[2018-07-17 09:25] LABS: INR 1.36 (0.87-1.13)
[2018-07-17] MEDS: LOPRESSOR PO SCH (10:00)
[2018-07-17] MEDS: COZAAR PO SCH ×2 (10:00→18:16)
[2018-07-17] MEDS: CATAPRES PO SCH (10:00)
--- NOTE | 2018-07-17 10:45 | Progress Note ---
Assessment and Plan - Patient Problems (1) ESRD (end stage renal disease) on dialysis Current Visit: Yes Status: Chronic Plan to address problem: cont HD on MWF schedule. (2) Pneumonia Current Visit: Yes Status: Acute Plan to address problem: cont ABXs as per ID (3) Hypertensive chronic kidney disease with stage 5 chronic kidney disease or end stage renal disease Current Visit: No Status: Acute Plan to address problem: BP controlled, monitor on current BP regimen (4) Anemia in ESRD (end-stage renal disease) Current Visit: Yes Status: Acute Plan to address problem: Hb at target. no need for further EPO Subjective Date of service: 07/17/18 Principal diagnosis: ESRD, pneumonia Interval history: Pt awake, alert, in NAD Objective - Vital Signs Vital signs: Vital Signs - 12hr 07/17/18 07/17/18 07/17/18 01:46 03:33 08:01 Temperature 98.0 F 97.8 F Pulse Rate 68 Pulse Rate [ 63 Anterior Bilateral Throughout] Respiratory 18 20 Rate Respiratory 14 Rate [Anterior Bilateral Throughout] Blood Pressure 97/55 103/55 O2 Sat by Pulse 97 Oximetry 07/17/18 08:31 Temperature Pulse Rate 63 Pulse Rate [ Anterior Bilateral Throughout] Respiratory Rate Respiratory Rate [Anterior Bilateral Throughout] Blood Pressure O2 Sat by Pulse 98 Oximetry - General Appearance General appearance: well-developed, well-nourished, appears stated age EENT: ATNC, PERRL, mucous membranes moist Neck: no JVD Respiratory: Present: Clear to Ascultation Cardiology: regular Gastrointestinal: normal Integumentary: no rash, other (no edema ) Neurologic: no focal deficit, alert and oriented x3, strength 5/5, CN 3-12 intact Psychiatric: mood/affect appropriate, cooperative - Lab 07/17/18 05:52 07/16/18 00:50 Most recent lab results Calcium 9.1 mg/dL (8.4-10.2) 07/16/18 00:50 Magnesium 2.40 mg/dL (1.7-2.3) H 07/16/18 00:50 Medications & Allergies - Medications Allergies/Adverse Reactions: Allergies No Known Allergies Allergy (Verified 11/06/17 12:21) Home Medications: Home Medications Medication Instructions Recorded Confirmed Last Taken Type Aspirin EC [Aspirin Enteric Coated 81 mg PO QDAY 11/06/17 07/16/18 02/21/18 History TAB] AtorvaSTATin [Lipitor] 40 mg PO DAILY 11/06/17 07/16/18 02/21/18 History Clopidogrel [Plavix] 75 mg PO QDAY 11/06/17 07/16/18 02/21/18 History Gabapentin [Neurontin] 300 mg PO TID 11/06/17 07/16/18 02/21/18 History Metoprolol [Lopressor TAB] 25 mg PO DAILY MDD BLOOD PRESSURE 11/06/17 07/16/18 02/21/18 History cloNIDine [Catapres] 0.1 mg PO DAILY 11/06/17 07/16/18 02/21/18 History Albuterol Sulfate [Albuterol 0.63% 0.63 mg IH PRN 02/21/18 07/16/18 02/21/18 History NEBS] Cinacalcet [Sensipar] 30 mg PO BID 02/21/18 07/16/18 02/21/18 History Furosemide [Lasix] 80 mg PO BID 02/21/18 07/16/18 02/21/18 History Ipratropium/Albuter (Nf) 2 puff INHALATION PRN 02/21/18 07/16/18 02/21/18 History [Combivent Inhaler] Losartan Potassium [Cozaar] 50 mg PO DAILY 02/21/18 07/16/18 02/21/18 History Sod,Ammonium,Potassium Lactate 1 mg TRANSDERMA PRN 02/21/18 07/16/18 02/21/18 History [Amlactin Foot Cream] Tamsulosin HCl [Flomax] 0.4 mg PO BID 02/21/18 07/16/18 02/21/18 History Temazepam [Restoril] 30 mg PO DAILY 02/21/18 07/16/18 02/21/18 History Triamcinolone 0.1% [Kenalog 0.1% 1 applic TP TID 02/21/18 07/16/18 02/21/18 History CREAM] Dorzolamide HCl/Timolol Maleat 1 drop OP DAILY 07/16/18 07/16/18 Unknown History [Cosopt Eye Drops] Active Medications: Generic Name Dose Route Start Last Admin Trade Name Freq PRN Reason Stop Dose Admin Acetaminophen 650 mg 07/16/18 02:20 07/16/18 15:52 Tylenol PO 650 mg Q4H PRN Administration Fever >101 Albuterol 2.5 mg 07/16/18 08:10 Proventil IH Q6HRT PRN Shortness Of Breath Albuterol/Ipratropium 1 ampul 07/16/18 14:00 07/17/18 08:32 Duoneb *Not For Prn Use* IH 1 ampul Q6HRT ROBB Administration Aspirin 81 mg 07/16/18 10:00 07/16/18 11:15 Halfprin Ec PO 81 mg QDAY ROBB Administration Atorvastatin Calcium 40 mg 07/16/18 10:00 07/16/18 11:15 Lipitor PO 40 mg DAILY ROBB Administration Cinacalcet 30 mg 07/16/18 10:00 07/16/18 21:54 Sensipar PO 30 mg BID ROBB Administration Clonidine HCl 0.1 mg 07/16/18 10:00 07/16/18 11:15 Catapres PO 0.1 mg DAILY ROBB Administration Clopidogrel Bisulfate 75 mg 07/16/18 10:00 07/16/18 11:15 Plavix PO 75 mg QDAY ROBB Administration Dextrose 50 ml 07/16/18 02:29 D50w (25gm) Syringe IV PRN PRN Hypoglycemia Furosemide 80 mg 07/16/18 05:00 07/16/18 21:55 Lasix PO 80 mg BID ROBB Administration Gabapentin 300 mg 07/16/18 08:00 07/17/18 09:13 Neurontin PO Not Given TID ROBB Sodium Chloride 100 mls @ 999 mls/hr 07/16/18 17:06 Nacl 0.9% IV SHY PRN Hypotension Heparin Sodium/Sodium Chloride 25,000 unit in 500 mls @ 24 mls/hr 07/16/18 23:45 07/17/18 09:19 Heparin/ 0.45% Nacl-25,000 Unit/500 Ml IV 1,100 units/hr TITR ROBB 22 mls/hr Administration Protocol 1,200 UNITS/HR Insulin Human Regular 0 units 07/16/18 07:30 07/17/18 08:25 Humulin R SUB-Q Not Given AC [facility] Protocol Insulin Human Regular 0 units 07/16/18 22:00 07/16/18 23:07 Humulin R SUB-Q Not Given QHS [facility] Protocol Losartan Potassium 50 mg 07/16/18 10:00 07/16/18 11:15 Cozaar PO 50 mg DAILY ROBB Administration Metoprolol Tartrate 25 mg 07/16/18 10:00 07/16/18 11:14 Lopressor PO 25 mg DAILY ROBB Administration Miscellaneous Medication 1 drop 07/16/18 10:00 Dorzolamide Hcl/Timolol Maleat [Cosopt Eye Drops] OP DAILY ROBB Ondansetron HCl 4 mg 07/16/18 02:23 Zofran IV Q8H PRN Nausea And Vomiting Tamsulosin HCl 0.4 mg 07/16/18 10:00 07/16/18 21:53 Flomax PO 0.4 mg BID ROBB Administration Temazepam 30 mg 07/16/18 10:00 07/16/18 23:11 Restoril PO Not Given DAILY [facility] Triamcinolone Acetonide 1 applic 07/16/18 08:00 07/16/18 21:53 Kenalog TP 1 applic TID ROBB Administration
--- NOTE | 2018-07-17 12:54 | Progress Note ---
Assessment and Plan Cultures: 07/16/2018 blood culture: In progress A/P: 73-year-old male with ESRD on hemodialysis via left AV fistula, diabetes mellitus type 2, coronary artery disease, status post left BKA. Now with: 1) Right lower lobe pneumonia versus pleural effusion: Upon comparing his chest x-ray with the previous one from February 2018, this seems to be like a chronic process. Patient without any fever, chills, cough or expectoration. No leukocytosis. Pneumonia seems less likely. No antibiotics indicated. 2) ESRD on hemodialysis 3) Diabetes mellitus type 2 4) Chronic leukopenia and thrombocytopenia: Appears to be at baseline Recs: Monitor off antibiotics f/u CT chest, possibly with contrast to also evaluate for other etiologies (malignancy, PE, etc.) Dr. Almonte will be documentation lead on Friday [phone], Dr. Joseph will be making rounds on Friday [phone], please call for questions. Deedee Hays NP [facility] M: [phone] O:[phone] Subjective Date of service: 07/17/18 Principal diagnosis: ESRD, pneumonia Interval history: Patient seen and examined. Denied generalized weakness or pain. +SOB. Transport picking him up for CT. Objective - Exam Narrative Exam: Constitutional: Alert, cooperative. No acute distress Head, Ears, Nose: Normocephalic, atraumatic. External ears, nose normal Eyes: Conjunctivae/corneas clear. No icterus. No ptosis. Neck: Supple, no meningeal signs Oral: dentition fair with a few missing teeth, no thrush Cardiovascular: S1, S2 normal. Respiratory: Bilateral crackles, air entry is reduced on the right base GI: Soft, non-tender; bowel sounds normal. No peritoneal signs Musculoskeletal: No pedal edema, no cyanosis. Left BKA stump healed. Left arm AVF/AVG Skin: No rash or abscess Hem/Lymphatic: No palpable cervical or supraclavicular nodes. No lymphangitis Psych: Mood ok. Affect normal Neurological: Awake, alert, oriented. No gross abnormality - Constitutional Vitals: Vital Signs Temp Pulse Resp BP Pulse Ox 97.8 F 62 18 103/55 98 07/17/18 08:01 07/17/18 08:42 07/17/18 10:00 07/17/18 08:01 07/17/18 08:31 Temperature -Last 24 Hours Temperature 97.8 F Temperature 98.0 F Temperature 98.3 F - Labs CBC & Chem 7: 07/17/18 05:52 07/16/18 00:50 Labs: Abnormal lab results 07/16/18 07/17/18 07/17/18 Range/Units 16:54 05:52 07:53 Hgb 10.3 L (11.8-15.2) gm/dl Hct 30.3 L (35.5-45.6) % Plt Count 94 L (140-440) K/mm3 PT 17.6 H (12.2-14.9) Sec. INR 1.36 H (0.87-1.13) APTT > 240.0 H* (24.2-36.6) Sec. D-Dimer 6405.88 H (0-234) ng/mlDDU Heparin Anti-Xa Level 0.76 H (0.3-0.7) U.I./ml
--- NOTE | 2018-07-17 13:34 | Progress Note ---
Subjective Date of service: 07/17/18 Principal diagnosis: ESRD, pneumonia Objective Vital Signs - 12hr 07/17/18 07/17/18 07/17/18 01:46 03:33 08:01 Temperature 98.0 F 97.8 F Pulse Rate 68 Pulse Rate [ 63 Anterior Bilateral Throughout] Respiratory 18 20 Rate Respiratory 14 Rate [Anterior Bilateral Throughout] Blood Pressure 97/55 103/55 O2 Sat by Pulse 97 Oximetry 07/17/18 07/17/18 07/17/18 08:31 08:32 08:42 Temperature Pulse Rate 63 Pulse Rate [ 65 62 Anterior Bilateral Throughout] Respiratory Rate Respiratory 18 18 Rate [Anterior Bilateral Throughout] Blood Pressure O2 Sat by Pulse 98 Oximetry 07/17/18 10:00 Temperature Pulse Rate Pulse Rate [ Anterior Bilateral Throughout] Respiratory 18 Rate Respiratory Rate [Anterior Bilateral Throughout] Blood Pressure O2 Sat by Pulse Oximetry CBC and BMP: 07/17/18 05:52 07/16/18 00:50 ABG, PT/INR, D-dimer: PT/INR, D-dimer PT 17.6 Sec. (12.2-14.9) H 07/17/18 07:53 INR 1.36 (0.87-1.13) H 07/17/18 07:53 D-Dimer 6405.88 ng/mlDDU (0-234) H 07/16/18 16:54 Abnormal lab findings: Abnormal Labs 07/16/18 07/16/18 07/16/18 00:50 00:50 00:50 WBC 3.1 L RBC 3.59 L Hgb 11.4 L Hct 33.5 L RDW 17.9 H Plt Count 104 L PT 15.6 H INR 1.17 H APTT D-Dimer Heparin Anti-Xa Level Chloride BUN Creatinine Magnesium 2.40 H 07/16/18 07/16/18 07/17/18 00:50 16:54 05:52 WBC RBC Hgb 10.3 L Hct 30.3 L RDW Plt Count 94 L PT INR APTT D-Dimer 6405.88 H Heparin Anti-Xa Level Chloride 93.8 L BUN 21 H Creatinine 4.8 H Magnesium 07/17/18 07:53 WBC RBC Hgb Hct RDW Plt Count PT 17.6 H INR 1.36 H APTT > 240.0 H* D-Dimer Heparin Anti-Xa Level 0.76 H Chloride BUN Creatinine Magnesium
--- NOTE | 2018-07-17 14:39 | Cat Scan Report ---
PROCEDURE: CT CHEST WO CON TECHNIQUE: CT of the chest performed. Images were obtained before and after IV contrast administratio n. Axial images and coronal and sagittal reformatted images were obtained. HISTORY: sob COMPARISON: None FINDINGS: There are coronary artery calcifications. There are coronary artery stents present. There is moderate cardiomegaly. There is some retrograde flow of contrast material into IVC and hepat ic veins. This suggests element of right heart failure. There is no abnormal mediastinal or hilar mass seen. There is a moderate right pleural effusion. There is right lower lobe volume loss and airspace disease, likely compressive atelectasis. Superimpo sed pneumonia not confirmed or excluded. There are mild emphysematous changes in the upper lobes. There is no pneumothorax seen. Images of the upper abdomen demonstrate moderate ascites. IMPRESSION: There is a moderate right pleural effusion. There is right lower lobe volume loss and airspace diseas e likely compressive atelectasis. Superimposed pneumonia not confirmed or excluded. Moderate cardiomegaly. Retrograde contrast won't IVC and hepatic veins suggests element of right hear t failure. Coronary artery calcifications. Moderate ascites. This document is electronically signed by Nivia Toledo MD., July 17 2018 02:37:25 PM ET
--- NOTE | 2018-07-17 14:42 | Cat Scan Report ---
PROCEDURE: CT ANGIO CHEST TECHNIQUE: CT angiography of the chest was performed. IV contrast was administered. Axial images and coronal and sagittal reformatted images were obtained. HISTORY: sob COMPARISON: None FINDINGS: There is no aortic dissection seen. There is no thoracic aortic aneurysm. There are coronary artery calcifications. There is moderate cardiomegaly. Retrograde contrast flow into IVC and hepatic veins suggests element of right heart failure. There are no abnormal pulmonary arterial filling defects seen to indicate acute pulmonary emboli. There is a moderate right pleural effusion. There is airspace disease and volume loss of right lower lobe which is likely compressive atelectasis. Superimposed pneumonia not confirmed or excluded. There is no pneumothorax seen. There is moderate ascites in visualized upper abdomen. IMPRESSION: There is no aortic dissection or pulmonary embolus seen. Moderate cardiomegaly. Retrograde contrast flow into IVC and hepatic veins suggests element of right heart failure. Moderate right pleural effusion. Airspace disease and volume loss of right lower lobe is likely compr essive atelectasis. Superimposed pneumonia not confirmed or excluded. Moderate ascites. This document is electronically signed by Nivia Toledo MD., July 17 2018 02:40:43 PM ET
--- NOTE | 2018-07-17 15:56 | Consultation ---
History of Present Illness Consult date: 07/17/18 Consult reason: congestive heart failure History of present illness: 72-year-old man with a history of coronary artery disease and end-stage renal disease on hemodialysis who presented 07/16 with complaints of shortness of breath. Patient denies any missed dialysis days. He has no chest pain. Chest x- ray report concerns for right lower lung pneumonia. ECG is sinus rhythm with a first-degree AV block and right bundle branch block. No significant change from his prior ECG done February 2018. Patient is known to [facility]. In July of 2017, he underwent a cardiac catheterization that reports patent stents in the mid LAD, mid obtuse marginal and distal circumflex. At that time he had coronary intervention with drug- eluting stents deployed to 2 discrete de rod lesions in the circumflex system. He is on aspirin and Plavix therapy. His latest cardiac evaluation was a negative thallium stress test as an outpatient January 2018. An echocardiogram done 4 months ago reports severe pulmonary hypertension with mild dilation of right heart chambers. Left ventricular ejection fraction 40-45%. Past History Past Medical History: anemia, CAD, ESRD, hypertension, PVD Past Surgical History: PTCA, Other (AV fistula, Left BKA 2013, Cardiac cath, Glaucoma eye surgery, [employer] and stenting to left leg) Social history: . denies: IV drug use, full code, AND/DNR-allow natural Family history: cancer (Mother had Pancreatic CA), diabetes (mother, brother, sister), hypertension (mother, brother, sister), other Medications and Allergies Allergies Allergy/AdvReac Type Severity Reaction Status Date / Time No Known Allergies Allergy Verified 11/06/17 12:21 Home Medications Medication Instructions Recorded Confirmed Last Taken Type Aspirin EC [Aspirin Enteric Coated 81 mg PO QDAY 11/06/17 07/16/18 02/21/18 History TAB] AtorvaSTATin [Lipitor] 40 mg PO DAILY 11/06/17 07/16/18 02/21/18 History Clopidogrel [Plavix] 75 mg PO QDAY 11/06/17 07/16/18 02/21/18 History Gabapentin [Neurontin] 300 mg PO TID 11/06/17 07/16/18 02/21/18 History Metoprolol [Lopressor TAB] 25 mg PO DAILY [facility] BLOOD PRESSURE 11/06/17 07/16/18 02/21/18 History cloNIDine [Catapres] 0.1 mg PO DAILY 11/06/17 07/16/18 02/21/18 History Albuterol Sulfate [Albuterol 0.63% 0.63 mg IH PRN 02/21/18 07/16/18 02/21/18 History NEBS] Cinacalcet [Sensipar] 30 mg PO BID 02/21/18 07/16/18 02/21/18 History Furosemide [Lasix] 80 mg PO BID 02/21/18 07/16/18 02/21/18 History Ipratropium/Albuter (Nf) 2 puff INHALATION PRN 02/21/18 07/16/18 02/21/18 History [Combivent Inhaler] Losartan Potassium [Cozaar] 50 mg PO DAILY 02/21/18 07/16/18 02/21/18 History Sod,Ammonium,Potassium Lactate 1 mg TRANSDERMA PRN 02/21/18 07/16/18 02/21/18 History [Amlactin Foot Cream] Tamsulosin HCl [Flomax] 0.4 mg PO BID 02/21/18 07/16/18 02/21/18 History Temazepam [Restoril] 30 mg PO DAILY 02/21/18 07/16/18 02/21/18 History Triamcinolone 0.1% [Kenalog 0.1% 1 applic TP TID 02/21/18 07/16/18 02/21/18 History CREAM] Dorzolamide HCl/Timolol Maleat 1 drop OP DAILY 07/16/18 07/16/18 Unknown History [Cosopt Eye Drops] Active Meds: Active Medications Acetaminophen (Tylenol) 650 mg PO Q4H PRN PRN Reason: Fever >101 Last Admin: 07/16/18 15:52 Dose: 650 mg Documented by: Albuterol (Proventil) 2.5 mg IH Q6HRT PRN PRN Reason: Shortness Of Breath Albuterol/Ipratropium (Duoneb *Not For Prn Use*) 1 ampul IH Q6HRT [facility] Last Admin: 07/17/18 14:21 Dose: Not Given Documented by: Aspirin (Halfprin Ec) 81 mg PO QDAY [facility] Last Admin: 07/16/18 11:15 Dose: 81 mg Documented by: Atorvastatin Calcium (Lipitor) 40 mg PO DAILY [facility] Last Admin: 07/16/18 11:15 Dose: 40 mg Documented by: Cinacalcet (Sensipar) 30 mg PO BID [facility] Last Admin: 07/16/18 21:54 Dose: 30 mg Documented by: Clonidine HCl (Catapres) 0.1 mg PO DAILY [facility] Last Admin: 07/16/18 11:15 Dose: 0.1 mg Documented by: Clopidogrel Bisulfate (Plavix) 75 mg PO QDAY [facility] Last Admin: 07/16/18 11:15 Dose: 75 mg Documented by: Dextrose (D50w (25gm) Syringe) 50 ml IV PRN PRN PRN Reason: Hypoglycemia Furosemide (Lasix) 80 mg PO BID [facility] Last Admin: 07/16/18 21:55 Dose: 80 mg Documented by: Gabapentin (Neurontin) 300 mg PO TID [facility] Last Admin: 07/17/18 09:13 Dose: Not Given Documented by: Heparin Sodium (Porcine) (Heparin) 5,000 unit SUB-Q Q8HR [facility] Sodium Chloride (Nacl 0.9%) 100 mls @ 999 mls/hr IV SHY PRN PRN Reason: Hypotension Insulin Human Regular (Humulin R) 0 units SUB-Q AC [facility]; Protocol Last Admin: 07/17/18 08:25 Dose: Not Given Documented by: Insulin Human Regular (Humulin R) 0 units SUB-Q QHS [facility]; Protocol Last Admin: 07/16/18 23:07 Dose: Not Given Documented by: Losartan Potassium (Cozaar) 50 mg PO DAILY [facility] Last Admin: 07/16/18 11:15 Dose: 50 mg Documented by: Metoprolol Tartrate (Lopressor) 25 mg PO DAILY [facility] Last Admin: 07/16/18 11:14 Dose: 25 mg Documented by: Miscellaneous Medication (Dorzolamide Hcl/Timolol Maleat [Cosopt Eye Drops]) 1 drop OP DAILY [facility] Ondansetron HCl (Zofran) 4 mg IV Q8H PRN PRN Reason: Nausea And Vomiting Tamsulosin HCl (Flomax) 0.4 mg PO BID [facility] Last Admin: 07/16/18 21:53 Dose: 0.4 mg Documented by: Temazepam (Restoril) 30 mg PO DAILY [facility] Last Admin: 07/16/18 23:11 Dose: Not Given Documented by: Triamcinolone Acetonide (Kenalog) 1 applic TP TID [facility] Last Admin: 07/16/18 21:53 Dose: 1 applic Documented by: Physical Examination Vital Signs Pulse Resp BP Pulse Ox 60 14 118/57 100 07/16/18 01:00 07/16/18 01:00 07/16/18 01:00 07/16/18 01:00 Results 07/17/18 05:52 07/16/18 00:50 Coagulation 07/17/18 07/17/18 Range/Units 05:52 07:53 PT TNR 17.6 H INR TNR 1.36 H APTT TNR > 240.0 H* CBC 07/17/18 Range/Units 05:52 Hgb 10.3 L (11.8-15.2) gm/dl Hct 30.3 L (35.5-45.6) % Plt Count 94 L (140-440) K/mm3 Assessment and Plan Pneumonia ESRD on dialysis Hx of CAD s/p PCI 07/2017 EF 40-45% on echocardiogram 02/2018. Outpatient MPI 01/2018 unchanged from study done 05/2017 Chronic elevated troponins Hypertension PVD s/p left BKA Chronic elevated troponin ECG is sinus rhythm with a marked first-degree AV block, and right bundle branch block. Recommendations: Hemodialysis for fluid management. Medical therapy for underlying coronary artery disease. Otherwise, conservative cardiac management.
[2018-07-17] MEDS: LASIX PO SCH ×2 (18:05→21:05)
[2018-07-17] MEDS: FLOMAX PO SCH ×2 (18:05→21:01)
[2018-07-17] MEDS: SENSIPAR PO SCH ×2 (18:06→21:01)
[2018-07-17] MEDS: RESTORIL PO SCH ×2 (18:06→21:02)
[2018-07-17] MEDS: TYLENOL PO PRN (18:12)
[2018-07-17] MEDS: HALFPRIN EC PO SCH (18:12)
[2018-07-17] MEDS: KENALOG TP SCH ×3 (18:13→20:31)
[2018-07-17] MEDS: PLAVIX PO SCH (18:14)
[2018-07-17] MEDS ORDERED: LASIX IV SCH (20:00)
[2018-07-17] MEDS: LASIX IV SCH ×2 (21:00→21:14)
[2018-07-17] MEDS: HEPARIN SUB-Q SCH (21:01)
--- NOTE | 2018-07-17 22:41 | Progress Note ---
Assessment and Plan Pneumonia ESRD on dialysis Hx of CAD s/p PCI 07/2017 EF 40-45% on echocardiogram 02/2018. Outpatient MPI 01/2018 unchanged from study done 05/2017 Chronic elevated troponins Hypertension PVD s/p left BKA Chronic elevated troponin ECG is sinus rhythm with a marked first-degree AV block, and right bundle branch block. Recommendations: Hemodialysis for fluid management. Medical therapy for underlying coronary artery disease with BB, ASA, and statin maximize medical therapy as blood pressure tolerates Otherwise, conservative cardiac management. Subjective Date of service: 07/18/18 Principal diagnosis: ESRD, pneumonia Interval history: No acute events. Resting comfortably. No chest pain or SOB. Objective Vital Signs Temp Pulse Pulse Resp Resp BP Pulse Ox 07/17/18 22:11 100 07/17/18 19:50 98.3 F 20 104/55 07/17/18 19:37 77 18 07/17/18 19:30 75 18 100 07/17/18 19:12 18 07/17/18 18:16 97.8 F 72 18 124/63 100 07/17/18 17:10 98.0 F 74 18 130/64 07/17/18 16:50 72 130/62 07/17/18 16:30 70 116/56 07/17/18 16:15 78 124/58 07/17/18 16:00 74 128/54 07/17/18 15:45 68 130/72 07/17/18 15:30 72 140/72 07/17/18 15:15 72 134/58 07/17/18 15:00 66 126/64 07/17/18 14:45 62 120/60 07/17/18 14:30 62 110/54 07/17/18 14:15 62 118/66 07/17/18 14:00 66 116/64 07/17/18 13:50 98.0 F 64 18 118/64 07/17/18 13:37 16 07/17/18 10:00 64 18 07/17/18 08:42 62 18 07/17/18 08:32 65 18 07/17/18 08:31 63 98 07/17/18 08:01 97.8 F 20 103/55 07/17/18 03:33 98.0 F 68 18 97/55 97 07/17/18 01:46 63 14 - Physical Examination Neck: Positive: neck supple - Labs and Meds Coagulation 07/17/18 07/17/18 Range/Units 05:52 07:53 PT TNR 17.6 H INR TNR 1.36 H APTT TNR > 240.0 H* CBC 07/17/18 Range/Units 05:52 Hgb 10.3 L (11.8-15.2) gm/dl Hct 30.3 L (35.5-45.6) % Plt Count 94 L (140-440) K/mm3
[2018-07-17] MEDS ORDERED: NACL 0.9 (PRIMING MACHINE ONLY DIALYSIS) MC ONE (23:26)
[2018-07-18] MEDS: TYLENOL PO PRN ×3 (00:14→15:00)
[2018-07-18 05:41] LABS: Hematocrit 30.2 % (35.5-45.6); Mean Corpuscular HGB Conc 33 % (32-34); Mean Corpuscular Volume 94 fl (84-94); Red Blood Count 3.21 M/mm3 (3.65-5.03); Red Cell Distribution Width 17.7 % (13.2-15.2)
[2018-07-18 05:43] LABS: Calcium 8.9 mg/dL (8.4-10.2)
[2018-07-18 05:55] LABS: Platelet Count 91 K/mm3 (140-440)
[2018-07-18] MEDS: HEPARIN SUB-Q SCH ×3 (06:23→21:24)
[2018-07-18] MEDS: LASIX IV SCH ×2 (06:23→17:18)
--- NOTE | 2018-07-18 07:35 | Progress Note ---
Assessment and Plan - Patient Problems (1) ESRD (end stage renal disease) on dialysis Current Visit: Yes Status: Chronic Plan to address problem: cont HD on MWF schedule. (2) Pneumonia Current Visit: Yes Status: Acute Plan to address problem: cont ABXs as per ID (3) Hypertensive chronic kidney disease with stage 5 chronic kidney disease or end stage renal disease Current Visit: No Status: Acute Plan to address problem: BP controlled, monitor on current BP regimen (4) Anemia in ESRD (end-stage renal disease) Current Visit: Yes Status: Acute Plan to address problem: Hb at target. no need for further EPO (5) Pleural effusion Current Visit: Yes Status: Acute Plan to address problem: awaiting US guided thoracentesis Subjective Date of service: 07/18/18 Principal diagnosis: ESRD, pneumonia Interval history: Pt awake, alert, in NAD. Awaiting US guided thoracentesis Objective - Vital Signs Vital signs: Vital Signs - 12hr 07/17/18 07/17/18 07/17/18 19:37 19:50 20:58 Temperature 98.3 F Pulse Rate 85 Pulse Rate [ 77 Anterior Bilateral Throughout] Pulse Rate [ Right Radial] Respiratory 20 20 Rate Respiratory 18 Rate [Anterior Bilateral Throughout] Respiratory Rate [ Generalized] Blood Pressure 104/55 114/56 O2 Sat by Pulse 99 Oximetry 07/17/18 07/17/18 07/18/18 22:00 22:11 00:14 Temperature Pulse Rate Pulse Rate [ Anterior Bilateral Throughout] Pulse Rate [ 78 Right Radial] Respiratory 18 20 Rate Respiratory Rate [Anterior Bilateral Throughout] Respiratory Rate [ Generalized] Blood Pressure O2 Sat by Pulse 100 100 Oximetry 07/18/18 07/18/18 07/18/18 01:14 02:00 02:33 Temperature 98.6 F Pulse Rate 76 72 Pulse Rate [ Anterior Bilateral Throughout] Pulse Rate [ Right Radial] Respiratory 18 20 Rate Respiratory Rate [Anterior Bilateral Throughout] Respiratory Rate [ Generalized] Blood Pressure 116/55 O2 Sat by Pulse 100 Oximetry 07/18/18 04:00 Temperature Pulse Rate Pulse Rate [ Anterior Bilateral Throughout] Pulse Rate [ Right Radial] Respiratory Rate Respiratory Rate [Anterior Bilateral Throughout] Respiratory 18 Rate [ Generalized] Blood Pressure O2 Sat by Pulse Oximetry - General Appearance General appearance: well-developed, well-nourished, appears stated age EENT: ATNC, PERRL, mucous membranes moist Neck: no JVD Respiratory: Present: Decreased Breath Sounds Cardiology: regular, S1S2 Gastrointestinal: normoactive bowel sounds Integumentary: no rash, other (no edema ) Neurologic: no focal deficit, alert and oriented x3, strength 5/5, CN 3-12 intact Psychiatric: mood/affect appropriate, cooperative - Lab 07/18/18 04:56 07/18/18 04:56 Most recent lab results Calcium 8.9 mg/dL (8.4-10.2) 07/18/18 04:56 Magnesium 2.40 mg/dL (1.7-2.3) H 07/16/18 00:50 Medications & Allergies - Medications Allergies/Adverse Reactions: Allergies No Known Allergies Allergy (Verified 11/06/17 12:21) Home Medications: Home Medications Medication Instructions Recorded Confirmed Last Taken Type Aspirin EC [Aspirin Enteric Coated 81 mg PO QDAY 11/06/17 07/16/18 02/21/18 History TAB] AtorvaSTATin [Lipitor] 40 mg PO DAILY 11/06/17 07/16/18 02/21/18 History Clopidogrel [Plavix] 75 mg PO QDAY 11/06/17 07/16/18 02/21/18 History Gabapentin [Neurontin] 300 mg PO TID 11/06/17 07/16/18 02/21/18 History Metoprolol [Lopressor TAB] 25 mg PO DAILY MDD BLOOD PRESSURE 11/06/17 07/16/18 02/21/18 History cloNIDine [Catapres] 0.1 mg PO DAILY 11/06/17 07/16/18 02/21/18 History Albuterol Sulfate [Albuterol 0.63% 0.63 mg IH PRN 02/21/18 07/16/18 02/21/18 History NEBS] Cinacalcet [Sensipar] 30 mg PO BID 02/21/18 07/16/18 02/21/18 History Furosemide [Lasix] 80 mg PO BID 02/21/18 07/16/18 02/21/18 History Ipratropium/Albuter (Nf) 2 puff INHALATION PRN 02/21/18 07/16/18 02/21/18 History [Combivent Inhaler] Losartan Potassium [Cozaar] 50 mg PO DAILY 02/21/18 07/16/18 02/21/18 History Sod,Ammonium,Potassium Lactate 1 mg TRANSDERMA PRN 02/21/18 07/16/18 02/21/18 History [Amlactin Foot Cream] Tamsulosin HCl [Flomax] 0.4 mg PO BID 02/21/18 07/16/18 02/21/18 History Temazepam [Restoril] 30 mg PO DAILY 02/21/18 07/16/18 02/21/18 History Triamcinolone 0.1% [Kenalog 0.1% 1 applic TP TID 02/21/18 07/16/18 02/21/18 History CREAM] Dorzolamide HCl/Timolol Maleat 1 drop OP DAILY 07/16/18 07/16/18 Unknown History [Cosopt Eye Drops] Active Medications: Generic Name Dose Route Start Last Admin Trade Name Freq PRN Reason Stop Dose Admin Acetaminophen 650 mg 07/16/18 02:20 07/18/18 00:14 Tylenol PO 650 mg Q4H PRN Administration Fever >101 Albuterol 2.5 mg 07/16/18 08:10 Proventil IH Q6HRT PRN Shortness Of Breath Albuterol/Ipratropium 1 ampul 07/18/18 08:00 Duoneb *Not For Prn Use* IH TIDRT [facility] Aspirin 81 mg 07/16/18 10:00 07/17/18 18:12 Halfprin Ec PO 81 mg QDAY [facility] Administration Atorvastatin Calcium 40 mg 07/16/18 10:00 07/17/18 18:18 Lipitor PO 40 mg DAILY [facility] Administration Cinacalcet 30 mg 07/16/18 10:00 07/17/18 21:01 Sensipar PO 30 mg BID [facility] Administration Clonidine HCl 0.1 mg 07/16/18 10:00 07/17/18 10:00 Catapres PO Not Given DAILY [facility] Clopidogrel Bisulfate 75 mg 07/16/18 10:00 07/17/18 18:14 Plavix PO 75 mg QDAY [facility] Administration Dextrose 50 ml 07/16/18 02:29 D50w (25gm) Syringe IV PRN PRN Hypoglycemia Furosemide 80 mg 07/17/18 20:00 07/18/18 06:23 Lasix IV 80 mg 0600,1800 [facility] Administration Gabapentin 300 mg 07/16/18 08:00 07/17/18 20:32 Neurontin PO 300 mg TID [facility] Administration Heparin Sodium (Porcine) 5,000 unit 07/17/18 22:00 07/18/18 06:23 Heparin SUB-Q 5,000 unit Q8HR [facility] Administration Sodium Chloride 100 mls @ 999 mls/hr 07/16/18 17:06 Nacl 0.9% IV SHY PRN Hypotension Insulin Human Regular 0 units 07/16/18 07:30 07/17/18 18:20 Humulin R SUB-Q Not Given AC [facility] Protocol Insulin Human Regular 0 units 07/16/18 22:00 07/17/18 22:27 Humulin R SUB-Q Not Given QHS [facility] Protocol Losartan Potassium 50 mg 07/16/18 10:00 07/17/18 18:16 Cozaar PO 50 mg DAILY [facility] Administration Metoprolol Tartrate 25 mg 07/16/18 10:00 07/17/18 10:00 Lopressor PO Not Given DAILY [facility] Miscellaneous Medication 1 drop 07/16/18 10:00 Dorzolamide Hcl/Timolol Maleat [Cosopt Eye Drops] OP DAILY [facility] Ondansetron HCl 4 mg 07/16/18 02:23 Zofran IV Q8H PRN Nausea And Vomiting Tamsulosin HCl 0.4 mg 07/16/18 10:00 07/17/18 21:01 Flomax PO 0.4 mg BID [facility] Administration Temazepam 30 mg 07/17/18 22:00 07/17/18 21:02 Restoril PO 30 mg HS [facility] Administration Triamcinolone Acetonide 1 applic 07/16/18 08:00 07/17/18 20:31 Kenalog TP Not Given TID [facility]
--- NOTE | 2018-07-18 07:45 | Progress Note ---
Assessment and Plan Assessment and plan: --Right pleural effusion; Possible thoracentesis on 07/20/2018, No evidence of pneumonia, findings of atelectasis No fever, no white count, unlikely pneumonia ID following, no antibiotics at this point --Ascites; continue supportive care, abdominal paracentesis if needed --End-stage renal disease; on hemodialysis HD per schedule, nephrology following --Hypertension; moderate control, on antihypertensives,PRN meds --Dyslipidemia; continue statin --History of BPH; tamsulosin --Peripheral neuropathy; continue gabapentin --Type 2 diabetes mellitus; blood sugars in the normal range , did not need any coverage ,A1c 6.2 ,SSC and ADA diet --Chronic thrombocytopenia and leukopenia; probably his baseline consult hematology oncology if needed --DVT prophylaxis; heparin renal dose --Full CODE STATUS Follow-up Consults and recommendations Plan of care reviewed with the patient and the family at the bedside History Interval history: Patient seen and examined medical records reviewed Patient feels slightly better no new complaints Initially scheduled for thoracentesis today however he scheduled for Friday No new complaints Vital signs stable Hospitalist Physical - Constitutional Vitals: Temp Pulse Resp BP Pulse Ox 98.6 F 72 18 116/55 100 07/18/18 02:33 07/18/18 02:33 07/18/18 04:00 07/18/18 02:33 07/18/18 02:33 General appearance: Present: mild distress, well-nourished - EENT Eyes: Present: PERRL, EOM intact - Neck Neck: Present: supple, normal ROM - Respiratory Respiratory effort: normal Respiratory: bilateral: diminished, wheezing, negative: rales, rhonchi - Cardiovascular Rhythm: regular Heart Sounds: Present: S1 & S2 - Extremities Extremities: no ischemia Extremity abnormal: edema - Abdominal General gastrointestinal: soft, non-tender, non-distended, normal bowel sounds - Integumentary Integumentary: Present: clear, warm - Psychiatric Psychiatric: appropriate mood/affect, cooperative - Neurologic Neurologic: CNII-XII intact, moves all extremities Results - Labs CBC & Chem 7: 07/18/18 04:56 07/18/18 04:56 Labs: Laboratory Last Values WBC 3.2 K/mm3 (4.5-11.0) L 07/18/18 04:56 RBC 3.21 M/mm3 (3.65-5.03) L 07/18/18 04:56 Hgb 10.0 gm/dl (11.8-15.2) L 07/18/18 04:56 Hct 30.2 % (35.5-45.6) L 07/18/18 04:56 MCV 94 fl (84-94) 07/18/18 04:56 MCH 31 pg (28-32) 07/18/18 04:56 MCHC 33 % (32-34) 07/18/18 04:56 RDW 17.7 % (13.2-15.2) H 07/18/18 04:56 Plt Count 91 K/mm3 (140-440) L 07/18/18 04:56 Lymph % (Auto) [facility] 07/18/18 04:56 Mobile % (Auto) [facility] 07/18/18 04:56 Eos % (Auto) [facility] 07/18/18 04:56 Baso % (Auto) [facility] 07/18/18 04:56 Lymph # [facility] 07/18/18 04:56 Mobile # [facility] 07/18/18 04:56 Eos # [facility] 07/18/18 04:56 Baso # [facility] 07/18/18 04:56 Seg Neutrophils % [facility] 07/18/18 04:56 Seg Neutrophils # [facility] 07/18/18 04:56 PT 17.6 Sec. (12.2-14.9) H 07/17/18 07:53 INR 1.36 (0.87-1.13) H 07/17/18 07:53 APTT > 240.0 Sec. (24.2-36.6) H* 07/17/18 07:53 D-Dimer 6405.88 ng/mlDDU (0-234) H 07/16/18 16:54 Heparin Anti-Xa Level 0.76 U.I./ml (0.3-0.7) H 07/17/18 07:53 Sodium 138 mmol/L (137-145) 07/18/18 04:56 Potassium 4.1 mmol/L (3.6-5.0) 07/18/18 04:56 Chloride 95.7 mmol/L (98-107) L 07/18/18 04:56 Carbon Dioxide 29 mmol/L (22-30) 07/18/18 04:56 Anion Gap 17 mmol/L 07/18/18 04:56 BUN 24 mg/dL (9-20) H 07/18/18 04:56 Creatinine 5.4 mg/dL (0.8-1.5) H 07/18/18 04:56 Estimated GFR 13 ml/min 07/18/18 04:56 BUN/Creatinine Ratio 4 % 07/18/18 04:56 Glucose 106 mg/dL (75-100) H 07/18/18 04:56 POC Glucose 150 (70-105) H 07/17/18 22:06 Lactic Acid 1.20 mmol/L (0.7-2.0) 07/16/18 02:17 Calcium 8.9 mg/dL (8.4-10.2) 07/18/18 04:56 Magnesium 2.40 mg/dL (1.7-2.3) H 07/16/18 00:50 Active Medications - Current Medications Current Medications: Generic Name Dose Route Start Last Admin Trade Name Freq PRN Reason Stop Dose Admin Acetaminophen 650 mg 07/16/18 02:20 07/18/18 00:14 Tylenol PO 650 mg Q4H PRN Administration Fever >101 Albuterol 2.5 mg 07/16/18 08:10 Proventil IH Q6HRT PRN Shortness Of Breath Albuterol/Ipratropium 1 ampul 07/18/18 08:00 Duoneb *Not For Prn Use* IH TIDRT [facility] Aspirin 81 mg 07/16/18 10:00 07/17/18 18:12 Halfprin Ec PO 81 mg QDAY [facility] Administration Atorvastatin Calcium 40 mg 07/16/18 10:00 07/17/18 18:18 Lipitor PO 40 mg DAILY [facility] Administration Cinacalcet 30 mg 07/16/18 10:00 07/17/18 21:01 Sensipar PO 30 mg BID [facility] Administration Clonidine HCl 0.1 mg 07/16/18 10:00 07/17/18 10:00 Catapres PO Not Given DAILY [facility] Clopidogrel Bisulfate 75 mg 07/16/18 10:00 07/17/18 18:14 Plavix PO 75 mg QDAY [facility] Administration Dextrose 50 ml 07/16/18 02:29 D50w (25gm) Syringe IV PRN PRN Hypoglycemia Furosemide 80 mg 07/17/18 20:00 07/18/18 06:23 Lasix IV 80 mg 0600,1800 [facility] Administration Gabapentin 300 mg 07/16/18 08:00 07/17/18 20:32 Neurontin PO 300 mg TID [facility] Administration Heparin Sodium (Porcine) 5,000 unit 07/17/18 22:00 07/18/18 06:23 Heparin SUB-Q 5,000 unit Q8HR [facility] Administration Sodium Chloride 100 mls @ 999 mls/hr 07/16/18 17:06 Nacl 0.9% IV SHY PRN Hypotension Insulin Human Regular 0 units 07/16/18 07:30 07/17/18 18:20 Humulin R SUB-Q Not Given AC [facility] Protocol Insulin Human Regular 0 units 07/16/18 22:00 07/17/18 22:27 [facility] Losartan Potassium 50 mg 07/16/18 10:00 07/17/18 18:16 Cozaar PO 50 mg DAILY [facility] Administration Metoprolol Tartrate 25 mg 07/16/18 10:00 07/17/18 10:00 Lopressor PO Not Given DAILY [facility] Miscellaneous Medication 1 drop 07/16/18 10:00 Dorzolamide Hcl/Timolol Maleat [Cosopt Eye Drops] OP DAILY [facility] Ondansetron HCl 4 mg 07/16/18 02:23 Zofran IV Q8H PRN Nausea And Vomiting Tamsulosin HCl 0.4 mg 07/16/18 10:00 07/17/18 21:01 Flomax PO 0.4 mg BID [facility] Administration Temazepam 30 mg 07/17/18 22:00 07/17/18 21:02 Restoril PO 30 mg HS [facility] Administration Triamcinolone Acetonide 1 applic 07/16/18 08:00 07/17/18 20:31 Kenalog TP Not Given TID [facility]
[2018-07-18 08:20] LABS: Hypochromasia 1+; Target Cells 1+; Total Cells Counted 100
[2018-07-18 08:21] LABS: Platelet Estimate Consistent w Auto
[2018-07-18] MEDS: DUONEB *Not for PRN Use IH SCH ×3 (08:50→19:52)
[2018-07-18] MEDS: NEURONTIN PO SCH ×3 (09:02→21:23)
[2018-07-18] MEDS: COZAAR PO SCH (09:02)
[2018-07-18] MEDS: HALFPRIN EC PO SCH (09:03)
[2018-07-18] MEDS: SENSIPAR PO SCH ×2 (09:03→21:24)
[2018-07-18] MEDS: LOPRESSOR PO SCH (09:03)
[2018-07-18] MEDS: PLAVIX PO SCH (09:03)
[2018-07-18] MEDS: FLOMAX PO SCH ×2 (09:03→21:24)
[2018-07-18] MEDS: CATAPRES PO SCH (09:03)
[2018-07-18] MEDS: HumuLIN R SUB-Q SCH ×4 (09:04→22:47)
[2018-07-18] MEDS: KENALOG TP SCH ×3 (09:10→21:25)
--- NOTE | 2018-07-18 10:27 | Vascular Lab Report ---
EXAM: VL VENOUS DUPLEX LE BILAT HISTORY: LE edema TECHNIQUE: The lower extremity veins were interrogated with a high-frequency linear transducer, empl oying grayscale imaging, duplex Doppler and color flow Doppler imaging. COMPARISON: None available. FINDINGS: Interrogation of the common femoral veins, superficial femoral veins, popliteal veins, calf veins, an d saphenous veins demonstrates no intraluminal filling defects, no lack of vein compressibility, or n o absence of intraluminal color flow Doppler signal. The findings are inconsistent with deep venous t hrombosis. There is no evidence for luminal thrombosis of the saphenous vein or superficial venous system. There is a large right popliteal cyst (no measurements provided) in keeping with a Morris's cyst. No l eft-sided Morris's cyst is seen. No gross arterial aneurysm is incidentally noted. IMPRESSION: 1. No evidence for DVT seen bilaterally. 2. Large right popliteal cyst (no measurements provided) in keeping with a Morris's cyst. This document is electronically signed by Abril Ponce MD., July 18 2018 10:24:47 AM ET
[2018-07-18] MEDS: RESTORIL PO SCH (21:23)
--- NOTE | 2018-07-19 01:29 | Progress Note ---
Assessment and Plan Pneumonia ESRD on dialysis Hx of CAD s/p PCI 07/2017 EF 40-45% on echocardiogram 02/2018. Outpatient MPI 01/2018 unchanged from study done 05/2017 Chronic elevated troponins Hypertension PVD s/p left BKA Chronic elevated troponin ECG is sinus rhythm with a marked first-degree AV block, and right bundle branch block. Recommendations: Hemodialysis for fluid management. Medical therapy for underlying coronary artery disease with BB, ASA, and statin maximize medical therapy as blood pressure tolerates Otherwise, conservative cardiac management. Subjective Date of service: 07/19/18 Principal diagnosis: ESRD, pneumonia Interval history: No acute events. Resting comfortably. No chest pain or SOB. Objective Vital Signs Temp Pulse Pulse Pulse Pulse Resp Resp 07/18/18 22:00 71 72 70 20 07/18/18 20:02 07/18/18 20:01 72 20 07/18/18 19:53 69 20 07/18/18 19:32 98.2 F 66 20 07/18/18 14:36 71 07/18/18 14:03 72 20 07/18/18 13:53 97.8 F 75 18 20 07/18/18 10:00 70 70 70 22 07/18/18 09:02 71 07/18/18 09:00 76 20 07/18/18 08:59 70 22 07/18/18 08:50 70 20 07/18/18 08:01 97.5 F L 20 07/18/18 08:00 97.5 F L 07/18/18 06:21 66 18 07/18/18 04:00 07/18/18 02:33 98.6 F 72 20 07/18/18 02:00 76 Resp BP Pulse Ox 07/18/18 22:00 100 07/18/18 20:02 99 07/18/18 20:01 07/18/18 19:53 07/18/18 19:32 115/60 100 07/18/18 14:36 99 07/18/18 14:03 07/18/18 13:53 119/61 07/18/18 10:00 100 07/18/18 09:02 128/60 07/18/18 09:00 07/18/18 08:59 128/60 100 07/18/18 08:50 100 07/18/18 08:01 120/64 07/18/18 08:00 07/18/18 06:21 115/67 100 07/18/18 04:00 18 07/18/18 02:33 116/55 100 07/18/18 02:00 - Physical Examination Neck: Positive: neck supple - Labs and Meds CBC 07/18/18 Range/Units 04:56 WBC 3.2 L (4.5-11.0) K/mm3 RBC 3.21 L (3.65-5.03) M/mm3 Hgb 10.0 L (11.8-15.2) gm/dl Hct 30.2 L (35.5-45.6) % Plt Count 91 L (140-440) K/mm3 Lymph # [employer] Ready [employer]er [place] # Make Ready Worker Eos # Make Ready Worker Baso # Make Ready Worker Comprehensive Metabolic Panel 07/18/18 Range/Units 04:56 Sodium 138 (137-145) mmol/L Potassium 4.1 (3.6-5.0) mmol/L Chloride 95.7 L (98-107) mmol/L Carbon Dioxide 29 (22-30) mmol/L BUN 24 H (9-20) mg/dL Creatinine 5.4 H (0.8-1.5) mg/dL Glucose 106 H (75-100) mg/dL Calcium 8.9 (8.4-10.2) mg/dL
[2018-07-19] MEDS: LASIX IV SCH ×2 (05:40→18:44)
[2018-07-19] MEDS: HEPARIN SUB-Q SCH ×4 (05:54→21:23)
[2018-07-19] MEDS: TYLENOL PO PRN ×3 (06:44→18:14)
--- NOTE | 2018-07-19 07:04 | Progress Note ---
Assessment and Plan - Patient Problems (1) ESRD (end stage renal disease) on dialysis Current Visit: Yes Status: Chronic Plan to address problem: cont HD on MWF schedule. (2) Pneumonia Current Visit: Yes Status: Acute Plan to address problem: cont ABXs as per ID (3) Hypertensive chronic kidney disease with stage 5 chronic kidney disease or end stage renal disease Current Visit: No Status: Acute Plan to address problem: BP controlled, monitor on current BP regimen (4) Anemia in ESRD (end-stage renal disease) Current Visit: Yes Status: Acute Plan to address problem: Hb at target. no need for further EPO (5) Pleural effusion Current Visit: Yes Status: Acute Plan to address problem: awaiting US guided thoracentesis Subjective Date of service: 07/19/18 Principal diagnosis: ESRD, pneumonia Interval history: Pt awake, alert, in NAD. Awaiting US guided thoracentesis, scheduled for Mon AM Objective - Vital Signs Vital signs: Vital Signs - 12hr 07/18/18 07/18/18 07/18/18 19:32 19:53 20:01 Temperature 98.2 F Pulse Rate 66 Pulse Rate [ 69 72 Anterior Bilateral Throughout] Pulse Rate [ Apical] Pulse Rate [ Right Radial] Respiratory 20 Rate Respiratory 20 20 Rate [Anterior Bilateral Throughout] Blood Pressure 115/60 O2 Sat by Pulse 100 Oximetry 07/18/18 07/18/18 07/19/18 20:02 22:00 03:06 Temperature 98.1 F Pulse Rate 71 66 Pulse Rate [ Anterior Bilateral Throughout] Pulse Rate [ 72 Apical] Pulse Rate [ 70 Right Radial] Respiratory 20 20 Rate Respiratory Rate [Anterior Bilateral Throughout] Blood Pressure 115/52 O2 Sat by Pulse 99 100 100 Oximetry - General Appearance General appearance: well-developed, well-nourished, appears stated age EENT: ATNC, PERRL, mucous membranes moist Neck: no JVD Respiratory: Present: Decreased Breath Sounds Cardiology: regular, S1S2 Gastrointestinal: normoactive bowel sounds Integumentary: no rash, other (no edema) Neurologic: no focal deficit, alert and oriented x3, strength 5/5, CN 3-12 intact Psychiatric: mood/affect appropriate, cooperative - Lab 07/18/18 04:56 07/18/18 04:56 Most recent lab results Calcium 8.9 mg/dL (8.4-10.2) 07/18/18 04:56 Magnesium 2.40 mg/dL (1.7-2.3) H 07/16/18 00:50 Medications & Allergies - Medications Allergies/Adverse Reactions: Allergies No Known Allergies Allergy (Verified 11/06/17 12:21) Home Medications: Home Medications Medication Instructions Recorded Confirmed Last Taken Type Aspirin EC [Aspirin Enteric Coated 81 mg PO QDAY 11/06/17 07/16/18 02/21/18 History TAB] AtorvaSTATin [Lipitor] 40 mg PO DAILY 11/06/17 07/16/18 02/21/18 History Clopidogrel [Plavix] 75 mg PO QDAY 11/06/17 07/16/18 02/21/18 History Gabapentin [Neurontin] 300 mg PO TID 11/06/17 07/16/18 02/21/18 History Metoprolol [Lopressor TAB] 25 mg PO DAILY MDD BLOOD PRESSURE 11/06/17 07/16/18 02/21/18 History cloNIDine [Catapres] 0.1 mg PO DAILY 11/06/17 07/16/18 02/21/18 History Albuterol Sulfate [Albuterol 0.63% 0.63 mg IH PRN 02/21/18 07/16/18 02/21/18 History NEBS] Cinacalcet [Sensipar] 30 mg PO BID 02/21/18 07/16/18 02/21/18 History Furosemide [Lasix] 80 mg PO BID 02/21/18 07/16/18 02/21/18 History Ipratropium/Albuter (Nf) 2 puff INHALATION PRN 02/21/18 07/16/18 02/21/18 History [Combivent Inhaler] Losartan Potassium [Cozaar] 50 mg PO DAILY 02/21/18 07/16/18 02/21/18 History Sod,Ammonium,Potassium Lactate 1 mg TRANSDERMA PRN 02/21/18 07/16/18 02/21/18 History [Amlactin Foot Cream] Tamsulosin HCl [Flomax] 0.4 mg PO BID 02/21/18 07/16/18 02/21/18 History Temazepam [Restoril] 30 mg PO DAILY 02/21/18 07/16/18 02/21/18 History Triamcinolone 0.1% [Kenalog 0.1% 1 applic TP TID 02/21/18 07/16/18 02/21/18 History CREAM] Dorzolamide HCl/Timolol Maleat 1 drop OP DAILY 07/16/18 07/16/18 Unknown History [Cosopt Eye Drops] Active Medications: Generic Name Dose Route Start Last Admin Trade Name Freq PRN Reason Stop Dose Admin Acetaminophen 650 mg 07/16/18 02:20 07/19/18 06:44 Tylenol PO 650 mg Q4H PRN Administration Fever >101 Albuterol 2.5 mg 07/16/18 08:10 Proventil IH Q6HRT PRN Shortness Of Breath Albuterol/Ipratropium 1 ampul 07/18/18 08:00 07/18/18 19:52 Duoneb *Not For Prn Use* IH 1 ampul TIDRT ROBB Administration Aspirin 81 mg 07/16/18 10:00 07/18/18 09:03 Halfprin Ec PO 81 mg QDAY ROBB Administration Atorvastatin Calcium 40 mg 07/16/18 10:00 07/18/18 09:03 Lipitor PO 40 mg DAILY ROBB Administration Cinacalcet 30 mg 07/16/18 10:00 07/18/18 21:24 Sensipar PO 30 mg BID ROBB Administration Clonidine HCl 0.1 mg 07/16/18 10:00 07/18/18 09:03 Catapres PO 0.1 mg DAILY ROBB Administration Clopidogrel Bisulfate 75 mg 07/16/18 10:00 07/18/18 09:03 Plavix PO 75 mg QDAY ROBB Administration Dextrose 50 ml 07/16/18 02:29 D50w (25gm) Syringe IV PRN PRN Hypoglycemia Furosemide 80 mg 07/17/18 20:00 07/19/18 05:40 Lasix IV 80 mg 0600,1800 ROBB Administration Gabapentin 300 mg 07/16/18 08:00 07/18/18 21:23 Neurontin PO 300 mg TID ROBB Administration Heparin Sodium (Porcine) 5,000 unit 07/17/18 22:00 07/19/18 05:54 Heparin SUB-Q Not Given Q8HR ROBB Sodium Chloride 100 mls @ 999 mls/hr 07/16/18 17:06 Nacl 0.9% IV SHY PRN Hypotension Insulin Human Regular 0 units 07/16/18 07:30 07/18/18 17:18 Humulin R SUB-Q 3 units AC ROBB Administration Protocol Insulin Human Regular 0 units 07/16/18 22:00 07/18/18 22:47 Humulin R SUB-Q Not Given QHS [facility] Protocol Losartan Potassium 50 mg 07/16/18 10:00 07/18/18 09:02 Cozaar PO 50 mg DAILY ROBB Administration Metoprolol Tartrate 25 mg 07/16/18 10:00 07/18/18 09:03 Lopressor PO 25 mg DAILY ROBB Administration Miscellaneous Medication 1 drop 07/16/18 10:00 Dorzolamide Hcl/Timolol Maleat [Cosopt Eye Drops] OP DAILY ROBB Ondansetron HCl 4 mg 07/16/18 02:23 Zofran IV Q8H PRN Nausea And Vomiting Tamsulosin HCl 0.4 mg 07/16/18 10:00 07/18/18 21:24 Flomax PO 0.4 mg BID ROBB Administration Temazepam 30 mg 07/17/18 22:00 07/18/18 21:23 Restoril PO 30 mg HS ROBB Administration Triamcinolone Acetonide 1 applic 07/16/18 08:00 07/18/18 21:25 Kenalog TP 1 applic TID ROBB Administration
--- NOTE | 2018-07-19 07:45 | Progress Note ---
Assessment and Plan 73-year-old male with ESRD on hemodialysis via left AV fistula, diabetes mellitus type 2, coronary artery disease, status post left BKA. 1) Right lower lobe pneumonia versus pleural effusion: 2) ESRD on hemodialysis 3) Diabetes mellitus type 2 4) Chronic leukopenia and thrombocytopenia -CT chest shows a right pleural effusion with atelectasis. Patient also has ascites. In the setting on chronic thrombocytopenia may have chronic lung disease -Diagnostic thoracentesis on Friday -VTE prophylaxis -Supplemental oxygen, wean off oxygen for O2 sats >90% -Supportive HD Care plan discussed with the patient and his Care plan discussed with hospitalist service . Subjective Date of service: 07/18/18 Principal diagnosis: ESRD, pneumonia Interval history: Follow up: right pleural effusion; respiratory distress Seen and examined. Vitals, labs, medications, chart and imaging reviewed. No acute overnight events. Lying peacefully in bed on oxygen at 2L/min. visiting. Objective - Exam Narrative Exam: Constitutional: Alert, cooperative. No acute distress Head, Ears, Nose: Normocephalic, atraumatic. External ears, nose normal Eyes: Conjunctivae/corneas clear. No icterus. No ptosis. Neck: Supple, no meningeal signs Oral: dentition fair with a few missing teeth, no thrush Cardiovascular: S1, S2 normal. Respiratory: Bilateral crackles, air entry is reduced on the right base GI: Soft, non-tender; bowel sounds normal. No peritoneal signs Musculoskeletal: No pedal edema, no cyanosis. Left BKA stump healed. Left arm AVF/AVG Skin: No rash or abscess Hem/Lymphatic: No palpable cervical or supraclavicular nodes. No lymphangitis Psych: Mood ok. Affect normal Neurological: Awake, alert, oriented. No gross abnormality Vital Signs - 12hr 07/18/18 07/18/18 07/18/18 19:53 20:01 20:02 Temperature Pulse Rate Pulse Rate [ 69 72 Anterior Bilateral Throughout] Pulse Rate [ Apical] Pulse Rate [ Right Radial] Respiratory Rate Respiratory 20 20 Rate [Anterior Bilateral Throughout] Blood Pressure O2 Sat by Pulse 99 Oximetry 07/18/18 07/19/18 22:00 03:06 Temperature 98.1 F Pulse Rate 71 66 Pulse Rate [ Anterior Bilateral Throughout] Pulse Rate [ 72 Apical] Pulse Rate [ 70 Right Radial] Respiratory 20 20 Rate Respiratory Rate [Anterior Bilateral Throughout] Blood Pressure 115/52 O2 Sat by Pulse 100 100 Oximetry CBC and BMP: 07/18/18 04:56 07/18/18 04:56 ABG, PT/INR, D-dimer: PT/INR, D-dimer PT 17.6 Sec. (12.2-14.9) H 07/17/18 07:53 INR 1.36 (0.87-1.13) H 07/17/18 07:53 D-Dimer 6405.88 ng/mlDDU (0-234) H 07/16/18 16:54 Abnormal lab findings: Abnormal Labs 07/16/18 07/16/18 07/16/18 00:50 00:50 00:50 WBC 3.1 L RBC 3.59 L Hgb 11.4 L Hct 33.5 L RDW 17.9 H Plt Count 104 L Seg Neuts % (Manual) Lymphocytes % (Manual) Lymphocytes # (Manual) PT 15.6 H INR 1.17 H APTT D-Dimer Heparin Anti-Xa Level Chloride BUN Creatinine Glucose POC Glucose Magnesium 2.40 H 07/16/18 07/16/18 07/17/18 00:50 16:54 05:52 WBC RBC Hgb 10.3 L Hct 30.3 L RDW Plt Count 94 L Seg Neuts % (Manual) Lymphocytes % (Manual) Lymphocytes # (Manual) PT INR APTT D-Dimer 6405.88 H Heparin Anti-Xa Level Chloride 93.8 L BUN 21 H Creatinine 4.8 H Glucose POC Glucose Magnesium 07/17/18 07/17/18 07/18/18 07:53 22:06 04:56 WBC 3.2 L RBC 3.21 L Hgb 10.0 L Hct 30.2 L RDW 17.7 H Plt Count 91 L Seg Neuts % (Manual) 78.0 H Lymphocytes % (Manual) 13.0 L Lymphocytes # (Manual) 0.4 L PT 17.6 H INR 1.36 H APTT > 240.0 H* D-Dimer Heparin Anti-Xa Level 0.76 H Chloride BUN Creatinine Glucose POC Glucose 150 H Magnesium 07/18/18 07/18/18 07/18/18 04:56 08:05 11:50 WBC RBC Hgb Hct RDW Plt Count Seg Neuts % (Manual) Lymphocytes % (Manual) Lymphocytes # (Manual) PT INR APTT D-Dimer Heparin Anti-Xa Level Chloride 95.7 L BUN 24 H Creatinine 5.4 H Glucose 106 H POC Glucose 125 H 121 H Magnesium 07/18/18 07/18/18 07/19/18 16:19 21:55 07:10 WBC RBC Hgb Hct RDW Plt Count Seg Neuts % (Manual) Lymphocytes % (Manual) Lymphocytes # (Manual) PT INR APTT D-Dimer Heparin Anti-Xa Level Chloride BUN Creatinine Glucose POC Glucose 271 H 119 H 159 H Magnesium
[2018-07-19] MEDS: DUONEB *Not for PRN Use IH SCH ×3 (08:07→20:49)
[2018-07-19] MEDS: HumuLIN R SUB-Q SCH ×4 (08:37→22:47)
[2018-07-19] MEDS: KENALOG TP SCH ×3 (08:38→21:23)
[2018-07-19] MEDS: NEURONTIN PO SCH ×3 (08:45→21:21)
[2018-07-19] MEDS: CATAPRES PO SCH (09:00)
[2018-07-19] MEDS: LOPRESSOR PO SCH (09:02)
[2018-07-19] MEDS: COZAAR PO SCH (09:02)
[2018-07-19] MEDS: FLOMAX PO SCH ×2 (09:02→21:21)
[2018-07-19] MEDS: SENSIPAR PO SCH ×2 (09:02→21:21)
[2018-07-19] MEDS: HALFPRIN EC PO SCH (09:02)
[2018-07-19] MEDS: PLAVIX PO SCH (09:02)
--- NOTE | 2018-07-19 10:08 | Progress Note ---
Assessment and Plan Assessment and plan: --Right pleural effusion; Possible thoracentesis on 07/20/2018, No evidence of pneumonia, findings of atelectasis No fever, no white count, unlikely pneumonia ID following, no antibiotics at this point --Ascites; continue supportive care, abdominal paracentesis if needed --End-stage renal disease; on hemodialysis HD per schedule, nephrology following --Hypertension; moderate control, on antihypertensives,PRN meds --Dyslipidemia; continue statin --History of BPH; tamsulosin --Peripheral neuropathy; continue gabapentin --Type 2 diabetes mellitus; blood sugars in the normal range , did not need any coverage ,A1c 6.2 ,SSC and ADA diet --Chronic thrombocytopenia and leukopenia; probably his baseline consult hematology oncology if needed --DVT prophylaxis; heparin renal dose --Full CODE STATUS Follow-up Consults and recommendations Plan of care reviewed with the patient and the family at the bedside History Interval history: Patient seen and examined medical records reviewed Patient feels slightly better no new complaints Vital signs noted Alert awake oriented 3 Not in acute distress Hospitalist Physical - Constitutional Vitals: Temp Pulse Resp BP Pulse Ox 97.6 F 64 20 109/57 100 07/19/18 07:19 07/19/18 09:00 07/19/18 08:17 07/19/18 09:00 07/19/18 08:07 General appearance: Present: no acute distress, well-nourished - EENT Eyes: Present: PERRL, EOM intact - Neck Neck: Present: supple, normal ROM - Respiratory Respiratory effort: normal Respiratory: bilateral: diminished, rhonchi, negative: rales, wheezing - Cardiovascular Rhythm: regular Heart Sounds: Present: S1 & S2 - Extremities Extremities: no ischemia, No edema, abnormal ( left BKA) - Abdominal General gastrointestinal: soft, non-tender, non-distended, normal bowel sounds - Integumentary Integumentary: Present: clear, warm - Psychiatric Psychiatric: appropriate mood/affect, cooperative - Neurologic Neurologic: CNII-XII intact, moves all extremities Results - Labs CBC & Chem 7: 07/18/18 04:56 07/18/18 04:56 Labs: Laboratory Last Values WBC 3.2 K/mm3 (4.5-11.0) L 07/18/18 04:56 RBC 3.21 M/mm3 (3.65-5.03) L 07/18/18 04:56 Hgb 10.0 gm/dl (11.8-15.2) L 07/18/18 04:56 Hct 30.2 % (35.5-45.6) L 07/18/18 04:56 MCV 94 fl (84-94) 07/18/18 04:56 MCH 31 pg (28-32) 07/18/18 04:56 MCHC 33 % (32-34) 07/18/18 04:56 RDW 17.7 % (13.2-15.2) H 07/18/18 04:56 Plt Count 91 K/mm3 (140-440) L 07/18/18 04:56 Lymph % (Auto) [employer] 07/18/18 04:56 [place] % (Auto) [employer] 07/18/18 04:56 Eos % (Auto) [employer] 07/18/18 04:56 Baso % (Auto) [employer] 07/18/18 04:56 Lymph # [employer] 07/18/18 04:56 [place] # [employer] 07/18/18 04:56 Eos # [employer] 07/18/18 04:56 Baso # [employer] 07/18/18 04:56 Add Manual Diff Complete 07/18/18 04:56 Total Counted 100 07/18/18 04:56 Seg Neutrophils % [employer] 07/18/18 04:56 Seg Neuts % (Manual) 78.0 % (40.0-70.0) H 07/18/18 04:56 Band Neutrophils % 0 % 07/18/18 04:56 Lymphocytes % (Manual) 13.0 % (13.4-35.0) L 07/18/18 04:56 Reactive Lymphs % (Man) 0 % 07/18/18 04:56 Monocytes % (Manual) 4.0 % (0.0-7.3) 07/18/18 04:56 Eosinophils % (Manual) 4.0 % (0.0-4.3) 07/18/18 04:56 Basophils % (Manual) 1.0 % (0.0-1.8) 07/18/18 04:56 Metamyelocytes % 0 % 07/18/18 04:56 Myelocytes % 0 % 07/18/18 04:56 Promyelocytes % 0 % 07/18/18 04:56 Blast Cells % 0 % 07/18/18 04:56 Nucleated RBC % Not Reportable 07/18/18 04:56 Seg Neutrophils # [employer] 07/18/18 04:56 Seg Neutrophils # Man 2.5 K/mm3 (1.8-7.7) 07/18/18 04:56 Band Neutrophils # 0.0 K/mm3 07/18/18 04:56 Lymphocytes # (Manual) 0.4 K/mm3 (1.2-5.4) L 07/18/18 04:56 Abs React Lymphs (Man) 0.0 K/mm3 07/18/18 04:56 Monocytes # (Manual) 0.1 K/mm3 (0.0-0.8) 07/18/18 04:56 Eosinophils # (Manual) 0.1 K/mm3 (0.0-0.4) 07/18/18 04:56 Basophils # (Manual) 0.0 K/mm3 (0.0-0.1) 07/18/18 04:56 Metamyelocytes # 0.0 K/mm3 07/18/18 04:56 Myelocytes # 0.0 K/mm3 07/18/18 04:56 Promyelocytes # 0.0 K/mm3 07/18/18 04:56 Blast Cells # 0.0 K/mm3 07/18/18 04:56 WBC Morphology Not Reportable 07/18/18 04:56 Hypersegmented Neuts Not Reportable 07/18/18 04:56 Hyposegmented Neuts Not Reportable 07/18/18 04:56 Hypogranular Neuts Not Reportable 07/18/18 04:56 Smudge Cells Not Reportable 07/18/18 04:56 Toxic Granulation Not Reportable 07/18/18 04:56 Toxic Vacuolation Not Reportable 07/18/18 04:56 Dohle Bodies Not Reportable 07/18/18 04:56 Pelger-Huet Anomaly Not Reportable 07/18/18 04:56 Shola Rods Not Reportable 07/18/18 04:56 Platelet Estimate Consistent w auto 07/18/18 04:56 Clumped Platelets Not Reportable 07/18/18 04:56 Plt Clumps, EDTA Not Reportable 07/18/18 04:56 Large Platelets Not Reportable 07/18/18 04:56 Giant Platelets Not Reportable 07/18/18 04:56 Platelet Satelliting Not Reportable 07/18/18 04:56 Plt Morphology Comment Not Reportable 07/18/18 04:56 RBC Morphology Not Reportable 07/18/18 04:56 Dimorphic RBCs Not Reportable 07/18/18 04:56 Polychromasia Not Reportable 07/18/18 04:56 Hypochromasia 1+ 07/18/18 04:56 Poikilocytosis Not Reportable 07/18/18 04:56 Anisocytosis Not Reportable 07/18/18 04:56 Microcytosis Not Reportable 07/18/18 04:56 Macrocytosis Not Reportable 07/18/18 04:56 Spherocytes Not Reportable 07/18/18 04:56 Pappenheimer Bodies Not Reportable 07/18/18 04:56 Sickle Cells Not Reportable 07/18/18 04:56 Target Cells 1+ 07/18/18 04:56 Tear Drop Cells Not Reportable 07/18/18 04:56 Ovalocytes Not Reportable 07/18/18 04:56 Helmet Cells Not Reportable 07/18/18 04:56 [place] Bodies Not Reportable 07/18/18 04:56 [place] Rings Not Reportable 07/18/18 04:56 Janny Cells Not Reportable 07/18/18 04:56 Bite Cells Not Reportable 07/18/18 04:56 Crenated Cell Not Reportable 07/18/18 04:56 Elliptocytes Not Reportable 07/18/18 04:56 Acanthocytes (Spur) Not Reportable 07/18/18 04:56 Rouleaux Not Reportable 07/18/18 04:56 Hemoglobin C Crystals Not Reportable 07/18/18 04:56 Schistocytes Not Reportable 07/18/18 04:56 Malaria parasites Not Reportable 07/18/18 04:56 Wero Bodies Not Reportable 07/18/18 04:56 Hem Pathologist Commnt No 07/18/18 04:56 PT 17.6 Sec. (12.2-14.9) H 07/17/18 07:53 INR 1.36 (0.87-1.13) H 07/17/18 07:53 APTT > 240.0 Sec. (24.2-36.6) H* 07/17/18 07:53 D-Dimer 6405.88 ng/mlDDU (0-234) H 07/16/18 16:54 Heparin Anti-Xa Level 0.76 U.I./ml (0.3-0.7) H 07/17/18 07:53 Sodium 138 mmol/L (137-145) 07/18/18 04:56 Potassium 4.1 mmol/L (3.6-5.0) 07/18/18 04:56 Chloride 95.7 mmol/L (98-107) L 07/18/18 04:56 Carbon Dioxide 29 mmol/L (22-30) 07/18/18 04:56 Anion Gap 17 mmol/L 07/18/18 04:56 BUN 24 mg/dL (9-20) H 07/18/18 04:56 Creatinine 5.4 mg/dL (0.8-1.5) H 07/18/18 04:56 Estimated GFR 13 ml/min 07/18/18 04:56 BUN/Creatinine Ratio 4 % 07/18/18 04:56 Glucose 106 mg/dL (75-100) H 07/18/18 04:56 POC Glucose 159 (70-105) H 07/19/18 07:10 Lactic Acid 1.20 mmol/L (0.7-2.0) 07/16/18 02:17 Calcium 8.9 mg/dL (8.4-10.2) 07/18/18 04:56 Magnesium 2.40 mg/dL (1.7-2.3) H 07/16/18 00:50 Active Medications - Current Medications Current Medications: Generic Name Dose Route Start Last Admin Trade Name Freq PRN Reason Stop Dose Admin Acetaminophen 650 mg 07/16/18 02:20 07/19/18 06:44 Tylenol PO 650 mg Q4H PRN Administration Fever >101 Albuterol 2.5 mg 07/16/18 08:10 Proventil IH Q6HRT PRN Shortness Of Breath Albuterol/Ipratropium 1 ampul 07/18/18 08:00 07/19/18 08:07 Duoneb *Not For Prn Use* IH 1 ampul TIDRT ROBB Administration Aspirin 81 mg 07/16/18 10:00 07/19/18 09:02 Halfprin Ec PO 81 mg QDAY ROBB Administration Atorvastatin Calcium 40 mg 07/16/18 10:00 07/19/18 09:01 Lipitor PO [address] [facility] Administration Cinacalcet 30 mg 07/16/18 10:00 07/19/18 09:02 Sensipar PO [address] [facility] Administration Clonidine HCl 0.1 mg 07/16/18 10:00 07/19/18 09:00 Catapres PO 0.1 mg DAILY ROBB Administration Clopidogrel Bisulfate 75 mg 07/16/18 10:00 07/19/18 09:02 Plavix PO [address] [facility] Administration Dextrose 50 ml 07/16/18 02:29 D50w (25gm) Syringe IV PRN PRN Hypoglycemia Furosemide 80 mg 07/17/18 20:00 07/19/18 05:40 Lasix IV 80 mg 0600,1800 [facility] Administration Gabapentin 300 mg 07/16/18 08:00 07/19/18 08:45 Neurontin PO [address] [facility] Administration Heparin Sodium (Porcine) 5,000 unit 07/17/18 22:00 07/19/18 05:54 Heparin SUB-Q Not Given Q8HR [facility] Sodium Chloride 100 mls @ 999 mls/hr 07/16/18 17:06 Nacl 0.9% IV SHY PRN Hypotension Insulin Human Regular 0 units 07/16/18 07:30 07/19/18 08:37 Humulin R SUB-Q [address] [facility] Administration Protocol Insulin Human Regular 0 units 07/16/18 22:00 07/18/18 22:47 Humulin R SUB-Q Not Given QHS [facility] Protocol Losartan Potassium 50 mg 07/16/18 10:00 07/19/18 09:02 Cozaar PO [address] [facility] Administration Metoprolol Tartrate 25 mg 07/16/18 10:00 07/19/18 09:02 Lopressor PO [address] [facility] Administration Miscellaneous Medication 1 drop 07/16/18 10:00 Dorzolamide Hcl/Timolol Maleat [Cosopt Eye Drops] OP DAILY [facility] Ondansetron HCl 4 mg 07/16/18 02:23 Zofran IV Q8H PRN Nausea And Vomiting Tamsulosin HCl 0.4 mg 07/16/18 10:00 07/19/18 09:02 Flomax PO 0.[address] [facility] Administration Temazepam 30 mg 07/17/18 22:00 07/18/18 21:23 Restoril PO 30 mg HS ROBB Administration Triamcinolone Acetonide 1 applic 07/16/18 08:00 07/19/18 08:38 Kenalog TP 1 applic TID ROBB Administration
[2018-07-19] MEDS: NON-FORMULARY (Dorzolamide Hcl/Timolol Maleat [Cosopt Eye Drops] 1 DROP) OP SCH ×4 (14:41→21:21)
--- NOTE | 2018-07-19 14:45 | Event Note ---
Date: 07/19/18 Blood cultures 07/16/2018 1/4 bottles with Strep non Group D, likely Strep viridans, suspect contaminant. Repeat cultures negative. No abx needed. Ramon Joseph MD Infectious Diseases [employer]
--- NOTE | 2018-07-19 16:23 | Progress Note ---
Assessment and Plan 73-year-old male with ESRD on hemodialysis via left AV fistula, diabetes mellitus type 2, coronary artery disease, status post left BKA. 1) Right lower lobe pneumonia versus pleural effusion: 2) ESRD on hemodialysis 3) Diabetes mellitus type 2 4) Chronic leukopenia and thrombocytopenia -CT chest shows a right pleural effusion with atelectasis. Patient also has ascites. In the setting on chronic thrombocytopenia may have chronic lung disease -Diagnostic thoracentesis on Friday -VTE prophylaxis -Supplemental oxygen, wean off oxygen for O2 sats >90% -Supportive HD Care plan discussed with the patient and his Care plan discussed with hospitalist service . Subjective Date of service: 07/19/18 Principal diagnosis: ESRD, pneumonia Interval history: Follow up: right pleural effusion; respiratory distress Seen and examined. Vitals, labs, medications, chart and imaging reviewed. No acute overnight events. Lying peacefully in bed on oxygen at 2L/min. visiting. Objective Vital Signs - 12hr 07/19/18 07/19/18 07/19/18 07:07 07:19 08:07 Temperature 97.4 F L 97.6 F Pulse Rate 64 Pulse Rate [ 70 Anterior Bilateral Throughout] Pulse Rate [ Apical] Pulse Rate [ Right Radial] Respiratory 20 18 Rate Respiratory 20 Rate [Anterior Bilateral Throughout] Blood Pressure 115/59 109/57 Blood Pressure [Right] O2 Sat by Pulse 100 100 Oximetry 07/19/18 07/19/18 07/19/18 08:17 09:00 10:00 Temperature Pulse Rate 64 Pulse Rate [ 67 Anterior Bilateral Throughout] Pulse Rate [ 72 Apical] Pulse Rate [ 70 Right Radial] Respiratory 20 Rate Respiratory 20 Rate [Anterior Bilateral Throughout] Blood Pressure 109/57 Blood Pressure [Right] O2 Sat by Pulse Oximetry 07/19/18 07/19/18 07/19/18 13:34 13:44 13:48 Temperature 97.4 F L Pulse Rate 67 Pulse Rate [ 66 64 Anterior Bilateral Throughout] Pulse Rate [ Apical] Pulse Rate [ Right Radial] Respiratory 20 Rate Respiratory 20 20 Rate [Anterior Bilateral Throughout] Blood Pressure Blood Pressure 138/53 [Right] O2 Sat by Pulse 95 Oximetry CBC and BMP: 07/18/18 04:56 07/18/18 04:56 ABG, PT/INR, D-dimer: PT/INR, D-dimer PT 17.6 Sec. (12.2-14.9) H 07/17/18 07:53 INR 1.36 (0.87-1.13) H 07/17/18 07:53 D-Dimer 6405.88 ng/mlDDU (0-234) H 07/16/18 16:54 Abnormal lab findings: Abnormal Labs 07/16/18 07/16/18 07/16/18 00:50 00:50 00:50 WBC 3.1 L RBC 3.59 L Hgb 11.4 L Hct 33.5 L RDW 17.9 H Plt Count 104 L Seg Neuts % (Manual) Lymphocytes % (Manual) Lymphocytes # (Manual) PT 15.6 H INR 1.17 H APTT D-Dimer Heparin Anti-Xa Level Chloride BUN Creatinine Glucose POC Glucose Magnesium 2.40 H 07/16/18 07/16/18 07/17/18 00:50 16:54 05:52 WBC RBC Hgb 10.3 L Hct 30.3 L RDW Plt Count 94 L Seg Neuts % (Manual) Lymphocytes % (Manual) Lymphocytes # (Manual) PT INR APTT D-Dimer 6405.88 H Heparin Anti-Xa Level Chloride 93.8 L BUN 21 H Creatinine 4.8 H Glucose POC Glucose Magnesium 07/17/18 07/17/18 07/18/18 07:53 22:06 04:56 WBC 3.2 L RBC 3.21 L Hgb 10.0 L Hct 30.2 L RDW 17.7 H Plt Count 91 L Seg Neuts % (Manual) 78.0 H Lymphocytes % (Manual) 13.0 L Lymphocytes # (Manual) 0.4 L PT 17.6 H INR 1.36 H APTT > 240.0 H* D-Dimer Heparin Anti-Xa Level 0.76 H Chloride BUN Creatinine Glucose POC Glucose 150 H Magnesium 07/18/18 07/18/18 07/18/18 04:56 08:05 11:50 WBC RBC Hgb Hct RDW Plt Count Seg Neuts % (Manual) Lymphocytes % (Manual) Lymphocytes # (Manual) PT INR APTT D-Dimer Heparin Anti-Xa Level Chloride 95.7 L BUN 24 H Creatinine 5.4 H Glucose 106 H POC Glucose 125 H 121 H Magnesium 07/18/18 07/18/18 07/19/18 16:19 21:55 07:10 WBC RBC Hgb Hct RDW Plt Count Seg Neuts % (Manual) Lymphocytes % (Manual) Lymphocytes # (Manual) PT INR APTT D-Dimer Heparin Anti-Xa Level Chloride BUN Creatinine Glucose POC Glucose 271 H 119 H 159 H Magnesium 07/19/18 11:24 WBC RBC Hgb Hct RDW Plt Count Seg Neuts % (Manual) Lymphocytes % (Manual) Lymphocytes # (Manual) PT INR APTT D-Dimer Heparin Anti-Xa Level Chloride BUN Creatinine Glucose POC Glucose 61 L Magnesium
[2018-07-19] MEDS ORDERED: MILK OF MAGNESIA PO ONE (17:40)
[2018-07-19] MEDS ORDERED: MILK OF MAGNESIA PO PRN (17:40)
[2018-07-19] MEDS: RESTORIL PO SCH (21:21)
[2018-07-20] MEDS: TYLENOL PO PRN ×2 (04:35→17:48)
[2018-07-20 06:04] LABS: Hematocrit 30.3 % (35.5-45.6); Hemoglobin 10.2 gm/dl (11.8-15.2); Mean Corpuscular HGB Conc 34 % (32-34); Mean Corpuscular Volume 94 fl (84-94); Platelet Count 100 K/mm3 (140-440); Red Blood Count 3.21 M/mm3 (3.65-5.03); Red Cell Distribution Width 17.9 % (13.2-15.2)
[2018-07-20 06:12] LABS: INR 1.17 (0.87-1.13)
[2018-07-20] MEDS: LASIX IV SCH ×2 (06:18→17:49)
[2018-07-20] MEDS: HEPARIN SUB-Q SCH ×3 (06:19→22:36)
[2018-07-20 06:21] LABS: Calcium 8.3 mg/dL (8.4-10.2)
[2018-07-20 06:58] LABS: Anisocytosis 1+; Total Cells Counted 100
[2018-07-20 06:59] LABS: Large Platelets 1+; Platelet Estimate Appears Decreased; Poikilocytosis 1+
[2018-07-20] MEDS: DUONEB *Not for PRN Use IH SCH ×3 (07:25→20:45)
[2018-07-20] MEDS: KENALOG TP SCH ×3 (08:22→21:39)
[2018-07-20] MEDS: NEURONTIN PO SCH ×4 (08:23→21:34)
[2018-07-20] MEDS: HumuLIN R SUB-Q SCH ×4 (08:23→22:36)
--- NOTE | 2018-07-20 08:25 | Progress Note ---
Assessment and Plan Pleural effusion vs Pneumonia Volume overload ESRD on dialysis Hx of CAD s/p PCI 07/2017 EF 40-45% on echocardiogram 02/2018. Outpatient MPI 01/2018 unchanged from study done 05/2017 Chronic elevated troponins Hypertension PVD s/p left BKA Chronic elevated troponin ECG is sinus rhythm with a marked first-degree AV block, and right bundle branch block. Recommendations: Hemodialysis for fluid management. Medical therapy for underlying coronary artery disease. Otherwise, conservative cardiac management. Subjective Date of service: 07/20/18 Principal diagnosis: ESRD, pneumonia Interval history: Seen in dialysis. No complaints. Awaits thoracentesis. Objective Vital Signs Temp Pulse Pulse Pulse Pulse Resp Resp 07/20/18 07:47 67 18 07/20/18 07:29 07/20/18 07:26 63 18 07/20/18 02:41 63 07/20/18 02:40 98.3 F 20 07/19/18 22:42 07/19/18 22:00 72 07/19/18 20:30 66 18 07/19/18 19:59 67 07/19/18 19:57 98.6 F 20 07/19/18 19:30 67 70 20 07/19/18 13:48 97.4 F L 67 20 07/19/18 13:44 64 20 07/19/18 13:34 66 20 07/19/18 10:00 72 70 20 07/19/18 09:00 64 BP BP Pulse Ox 07/20/18 07:47 07/20/18 07:29 99 07/20/18 07:26 07/20/18 02:41 98 07/20/18 02:40 100/60 07/19/18 22:42 95 07/19/18 22:00 07/19/18 20:30 07/19/18 19:59 96 07/19/18 19:57 112/68 07/19/18 19:30 07/19/18 13:48 138/53 95 07/19/18 13:44 07/19/18 13:34 07/19/18 10:00 07/19/18 09:00 109/57 - Physical Examination General: No Apparent Distress HEENT: Positive: PERRL Neck: Positive: neck supple Cardiac: Positive: Reg Rate and Rhythm - Labs and Meds Coagulation 07/20/18 Range/Units 04:20 PT 15.6 H (12.2-14.9) Sec. INR 1.17 H (0.87-1.13) CBC 07/20/18 Range/Units 04:20 WBC 2.6 L (4.5-11.0) K/mm3 RBC 3.21 L (3.65-5.03) M/mm3 Hgb 10.2 L (11.8-15.2) gm/dl Hct 30.3 L (35.5-45.6) % Plt Count 100 L (140-440) K/mm3 Comprehensive Metabolic Panel 07/20/18 Range/Units 04:20 Sodium 135 L (137-145) mmol/L Potassium 4.8 (3.6-5.0) mmol/L Chloride 92.6 L (98-107) mmol/L Carbon Dioxide 28 (22-30) mmol/L BUN 48 H (9-20) mg/dL Creatinine 8.6 H D (0.8-1.5) mg/dL Glucose 82 (75-100) mg/dL Calcium 8.3 L (8.4-10.2) mg/dL
--- NOTE | 2018-07-20 08:36 | Progress Note ---
Assessment and Plan Assessment and plan: --Right pleural effusion; Possible thoracentesis today No evidence of pneumonia, findings of atelectasis No fever, no white count, unlikely pneumonia ID following, no antibiotics at this point --Ascites; continue supportive care, abdominal paracentesis if needed --End-stage renal disease; on hemodialysis HD per schedule, nephrology following --Hypertension; moderate control, on antihypertensives,PRN meds --Dyslipidemia; continue statin --History of BPH; tamsulosin --Peripheral neuropathy; continue gabapentin --Type 2 diabetes mellitus; blood sugars in the normal range , did not need any coverage ,A1c 6.2 ,SSC and ADA diet --Chronic thrombocytopenia and leukopenia; probably his baseline consult hematology oncology if needed --DVT prophylaxis; heparin renal dose --Full CODE STATUS Plan of care reviewed with the patient and his nurse F/U fluid analysis and dc 1-2 days if stable History Interval history: Patient seen and examined,medical records reviewed No new events reported by the nursing. Patient is scheduled for thoracentesis today No new complaints,NPO status. Vital signs reviewed Hospitalist Physical - Constitutional Vitals: Temp Pulse Resp BP Pulse Ox 98.3 F 67 18 100/60 99 07/20/18 02:40 07/20/18 07:47 07/20/18 07:47 07/20/18 02:40 07/20/18 07:29 General appearance: Present: no acute distress, well-nourished - EENT Eyes: Present: PERRL, EOM intact - Neck Neck: Present: supple, normal ROM - Respiratory Respiratory effort: normal Respiratory: bilateral: diminished, rhonchi, negative: rales, wheezing - Cardiovascular Rhythm: regular Heart Sounds: Present: S1 & S2 - Extremities Extremities: no ischemia, pulses intact - Abdominal General gastrointestinal: soft, non-tender, non-distended, normal bowel sounds - Integumentary Integumentary: Present: clear, warm - Psychiatric Psychiatric: appropriate mood/affect, memory intact - Neurologic Neurologic: moves all extremities Results - Labs CBC & Chem 7: 07/20/18 04:20 07/20/18 04:20 Labs: Laboratory Last Values WBC 2.6 K/mm3 (4.5-11.0) L 07/20/18 04:20 RBC 3.21 M/mm3 (3.65-5.03) L 07/20/18 04:20 Hgb 10.2 gm/dl (11.8-15.2) L 07/20/18 04:20 Hct 30.3 % (35.5-45.6) L 07/20/18 04:20 MCV 94 fl (84-94) 07/20/18 04:20 MCH 32 pg (28-32) 07/20/18 04:20 MCHC 34 % (32-34) 07/20/18 04:20 RDW 17.9 % (13.2-15.2) H 07/20/18 04:20 Plt Count 100 K/mm3 (140-440) L 07/20/18 04:20 Lymph % (Auto) Electric Tripper Machine Operator 07/18/18 04:56 Ross % (Auto) Electric Tripper Machine Operator 07/20/18 04:20 Eos % (Auto) Electric Tripper Machine Operator 07/18/18 04:56 Baso % (Auto) Electric Tripper Machine Operator 07/18/18 04:56 Lymph # Electric Tripper Machine Operator 07/18/18 04:56 Ross # Electric Tripper Machine Operator 07/18/18 04:56 Eos # Electric Tripper Machine Operator 07/18/18 04:56 Baso # Electric Tripper Machine Operator 07/18/18 04:56 Add Manual Diff Complete 07/20/18 04:20 Total Counted 100 07/20/18 04:20 Seg Neutrophils % Electric Tripper Machine Operator 07/18/18 04:56 Seg Neuts % (Manual) 65.0 % (40.0-70.0) 07/20/18 04:20 Band Neutrophils % 0 % 07/20/18 04:20 Lymphocytes % (Manual) 13.0 % (13.4-35.0) L 07/20/18 04:20 Reactive Lymphs % (Man) 0 % 07/20/18 04:20 Monocytes % (Manual) 13.0 % (0.0-7.3) H 07/20/18 04:20 Eosinophils % (Manual) 8.0 % (0.0-4.3) H 07/20/18 04:20 Basophils % (Manual) 1.0 % (0.0-1.8) 07/20/18 04:20 Metamyelocytes % 0 % 07/20/18 04:20 Myelocytes % 0 % 07/20/18 04:20 Promyelocytes % 0 % 07/20/18 04:20 Blast Cells % 0 % 07/20/18 04:20 Nucleated RBC % Not Reportable 07/20/18 04:20 Seg Neutrophils # Electric Tripper Machine Operator 07/18/18 04:56 Seg Neutrophils # Man 1.7 K/mm3 (1.8-7.7) L 07/20/18 04:20 Band Neutrophils # 0.0 K/mm3 07/20/18 04:20 Lymphocytes # (Manual) 0.3 K/mm3 (1.2-5.4) L 07/20/18 04:20 Abs React Lymphs (Man) 0.0 K/mm3 07/20/18 04:20 Monocytes # (Manual) 0.3 K/mm3 (0.0-0.8) 07/20/18 04:20 Eosinophils # (Manual) 0.2 K/mm3 (0.0-0.4) 07/20/18 04:20 Basophils # (Manual) 0.0 K/mm3 (0.0-0.1) 07/20/18 04:20 Metamyelocytes # 0.0 K/mm3 07/20/18 04:20 Myelocytes # 0.0 K/mm3 07/20/18 04:20 Promyelocytes # 0.0 K/mm3 07/20/18 04:20 Blast Cells # 0.0 K/mm3 07/20/18 04:20 WBC Morphology Not Reportable 07/20/18 04:20 Hypersegmented Neuts Not Reportable 07/20/18 04:20 Hyposegmented Neuts Not Reportable 07/20/18 04:20 Hypogranular Neuts Not Reportable 07/20/18 04:20 Smudge Cells Not Reportable 07/20/18 04:20 Toxic Granulation Not Reportable 07/20/18 04:20 Toxic Vacuolation Not Reportable 07/20/18 04:20 Dohle Bodies Not Reportable 07/20/18 04:20 Pelger-Huet Anomaly Not Reportable 07/20/18 04:20 Shola Rods Not Reportable 07/20/18 04:20 Platelet Estimate Appears decreased 07/20/18 04:20 Clumped Platelets Not Reportable 07/20/18 04:20 Plt Clumps, EDTA Not Reportable 07/20/18 04:20 Large Platelets 1+ 07/20/18 04:20 Giant Platelets Not Reportable 07/20/18 04:20 Platelet Satelliting Not Reportable 07/20/18 04:20 Plt Morphology Comment Not Reportable 07/20/18 04:20 RBC Morphology Not Reportable 07/20/18 04:20 Dimorphic RBCs Not Reportable 07/20/18 04:20 Polychromasia Not Reportable 07/20/18 04:20 Hypochromasia Not Reportable 07/20/18 04:20 Poikilocytosis 1+ 07/20/18 04:20 Anisocytosis 1+ 07/20/18 04:20 Microcytosis Not Reportable 07/20/18 04:20 Macrocytosis Not Reportable 07/20/18 04:20 Spherocytes Not Reportable 07/20/18 04:20 Pappenheimer Bodies Not Reportable 07/20/18 04:20 Sickle Cells Not Reportable 07/20/18 04:20 Target Cells Not Reportable 07/20/18 04:20 Tear Drop Cells Not Reportable 07/20/18 04:20 Ovalocytes Not Reportable 07/20/18 04:20 Helmet Cells Not Reportable 07/20/18 04:20 [place] Bodies Not Reportable 07/20/18 04:20 [place] Rings Not Reportable 07/20/18 04:20 [place] Cells Not Reportable 07/20/18 04:20 Bite Cells Not Reportable 07/20/18 04:20 Crenated Cell Not Reportable 07/20/18 04:20 Elliptocytes Not Reportable 07/20/18 04:20 Acanthocytes (Spur) Not Reportable 07/20/18 04:20 Rouleaux Not Reportable 07/20/18 04:20 Hemoglobin C Crystals Not Reportable 07/20/18 04:20 Schistocytes Not Reportable 07/20/18 04:20 Malaria parasites Not Reportable 07/20/18 04:20 Wero Bodies Not Reportable 07/20/18 04:20 Hem Pathologist Commnt No 07/20/18 04:20 PT 15.6 Sec. (12.2-14.9) H 07/20/18 04:20 INR 1.17 (0.87-1.13) H 07/20/18 04:20 APTT > 240.0 Sec. (24.2-36.6) H* 07/17/18 07:53 D-Dimer 6405.88 ng/mlDDU (0-234) H 07/16/18 16:54 Heparin Anti-Xa Level 0.76 U.I./ml (0.3-0.7) H 07/17/18 07:53 Sodium 135 mmol/L (137-145) L 07/20/18 04:20 Potassium 4.8 mmol/L (3.6-5.0) 07/20/18 04:20 Chloride 92.6 mmol/L (98-107) L 07/20/18 04:20 Carbon Dioxide 28 mmol/L (22-30) 07/20/18 04:20 Anion Gap 19 mmol/L 07/20/18 04:20 BUN 48 mg/dL (9-20) H 07/20/18 04:20 Creatinine 8.6 mg/dL (0.8-1.5) H D 07/20/18 04:20 Estimated GFR 7 ml/min 07/20/18 04:20 BUN/Creatinine Ratio 6 % 07/20/18 04:20 Glucose 82 mg/dL (75-100) 07/20/18 04:20 POC Glucose 89 (70-105) 07/20/18 07:24 Lactic Acid 1.20 mmol/L (0.7-2.0) 07/16/18 02:17 Calcium 8.3 mg/dL (8.4-10.2) L 07/20/18 04:20 Magnesium 2.40 mg/dL (1.7-2.3) H 07/16/18 00:50 Active Medications - Current Medications Current Medications: Generic Name Dose Route Start Last Admin Trade Name Freq PRN Reason Stop Dose Admin Acetaminophen 650 mg 07/16/18 02:20 07/20/18 04:35 Tylenol PO 650 mg Q4H PRN Administration Fever >101 Albuterol 2.5 mg 07/16/18 08:10 Proventil IH Q6HRT PRN Shortness Of Breath Albuterol/Ipratropium 1 ampul 07/18/18 08:00 07/20/18 07:25 Duoneb *Not For Prn Use* IH 1 ampul TIDRT ROBB Administration Aspirin 81 mg 07/16/18 10:00 07/19/18 09:02 Halfprin Ec PO 81 mg QDAY [facility] Administration Atorvastatin Calcium 40 mg 07/16/18 10:00 04/14/19 09:01 Lipitor PO 40 mg DAILY [facility] Administration Cinacalcet 30 mg 07/16/18 10:00 07/19/18 21:21 Sensipar PO 30 mg BID ROBB Administration Clonidine HCl 0.1 mg 07/16/18 10:00 07/19/18 09:00 Catapres PO 0.1 mg DAILY ROBB Administration Clopidogrel Bisulfate 75 mg 07/16/18 10:00 07/19/18 09:02 Plavix PO 75 mg QDAY [facility] Administration Dextrose 50 ml 07/16/18 02:29 D50w (25gm) Syringe IV PRN PRN Hypoglycemia Furosemide 80 mg 07/17/18 20:00 07/20/18 06:18 Lasix IV 80 mg 0600,1800 [facility] Administration Gabapentin 300 mg 07/16/18 08:00 07/20/18 08:23 Neurontin PO Not Given TID [facility] Heparin Sodium (Porcine) 5,000 unit 07/17/18 22:00 07/20/18 06:19 Heparin SUB-Q Not Given Q8HR [facility] Sodium Chloride 100 mls @ 999 mls/hr 07/16/18 17:06 Nacl 0.9% IV SHY PRN Hypotension Insulin Human Regular 0 units 07/16/18 07:30 07/20/18 08:23 Humulin R SUB-Q Not Given AC [facility] Protocol Insulin Human Regular 0 units 07/16/18 22:00 07/19/18 22:47 Humulin R SUB-Q Not Given QHS [facility] Protocol Losartan Potassium 50 mg 07/16/18 10:00 07/19/18 09:02 Cozaar PO 50 mg DAILY [facility] Administration Magnesium Hydroxide 30 ml 07/19/18 17:40 Milk Of Magnesia PO QDAY PRN Constipation Metoprolol Tartrate 25 mg 07/16/18 10:00 07/19/18 09:02 Lopressor PO 25 mg DAILY [facility] Administration Miscellaneous Medication 1 drop 07/16/18 10:00 07/19/18 21:21 Dorzolamide Hcl/Timolol Maleat [Cosopt Eye Drops] OP 1 drop DAILY [facility] Administration Ondansetron HCl 4 mg 07/16/18 02:23 Zofran IV Q8H PRN Nausea And Vomiting Tamsulosin HCl 0.4 mg 07/16/18 10:00 07/19/18 21:21 Flomax PO 0.4 mg BID [facility] Administration Temazepam 30 mg 07/17/18 22:00 07/19/18 21:21 Restoril PO 30 mg HS [facility] Administration Triamcinolone Acetonide 1 applic 07/16/18 08:00 07/20/18 08:22 Kenalog TP Not Given TID [facility]
--- NOTE | 2018-07-20 08:48 | Progress Note ---
Assessment and Plan - Patient Problems (1) Pleural effusion Current Visit: Yes Status: Acute Plan to address problem: Possibly parapneumonic effusion. Need to exclude chronic lung disease. Has prior smoking history. For Thoracentesis today. (2) Pneumonia Current Visit: Yes Status: Acute Plan to address problem: Continue antibiotics (3) ESRD (end stage renal disease) on dialysis Current Visit: Yes Status: Chronic Plan to address problem: Continue hemodialysis on a Friday, Friday and Friday schedule. (4) Hypertensive chronic kidney disease with stage 5 chronic kidney disease or end stage renal disease Current Visit: No Status: Acute Plan to address problem: Follow-up blood pressure on current medications (5) Type 2 diabetes mellitus with diabetic nephropathy Current Visit: No Status: Acute Plan to address problem: Blood sugar management by primary attending. Subjective Date of service: 07/20/18 Principal diagnosis: ESRD, pneumonia Interval history: Patient seen lying in bed on dialysis. He has no complaints this morning. Denies chest pain or shortness of breath. No nausea or vomiting. Tolerating dialysis so far Objective - Exam Narrative Exam: Elderly -[place] female lying in bed in no acute distress HEENT: NCAT, pink oral mucous membrane Neck: Supple, no venous distention CVS: S1S2 RRR with no murmur, rub or gallop Chest: Diminished breath sounds right lung zone Abdomen: Protuberant, soft, nontender, no organomegaly, bowel sounds are present Extremities: No edema, below knee amputation Neuro: Awake, alert no focal deficits - Vital Signs Vital signs: Vital Signs - 12hr 07/19/18 07/19/18 07/20/18 22:00 22:42 02:40 Temperature 98.3 F Pulse Rate 72 Pulse Rate [ Anterior Bilateral Throughout] Respiratory 20 Rate Respiratory Rate [Anterior Bilateral Throughout] Blood Pressure 100/60 O2 Sat by Pulse 95 Oximetry 07/20/18 07/20/18 07/20/18 02:41 07:26 07:29 Temperature Pulse Rate 63 Pulse Rate [ 63 Anterior Bilateral Throughout] Respiratory Rate Respiratory 18 Rate [Anterior Bilateral Throughout] Blood Pressure O2 Sat by Pulse 98 99 Oximetry 07/20/18 07:47 Temperature Pulse Rate Pulse Rate [ 67 Anterior Bilateral Throughout] Respiratory Rate Respiratory 18 Rate [Anterior Bilateral Throughout] Blood Pressure O2 Sat by Pulse Oximetry - Lab 07/20/18 04:20 07/20/18 04:20 Most recent lab results Calcium 8.3 mg/dL (8.4-10.2) L 07/20/18 04:20 Magnesium 2.40 mg/dL (1.7-2.3) H 07/16/18 00:50 Medications & Allergies - Medications Allergies/Adverse Reactions: Allergies No Known Allergies Allergy (Verified 11/06/17 12:21) Home Medications: Home Medications Medication Instructions Recorded Confirmed Last Taken Type Aspirin EC [Aspirin Enteric Coated 81 mg PO QDAY 11/06/17 07/16/18 02/21/18 History TAB] AtorvaSTATin [Lipitor] 40 mg PO DAILY 11/06/17 07/16/18 02/21/18 History Clopidogrel [Plavix] 75 mg PO QDAY 11/06/17 07/16/18 02/21/18 History Gabapentin [Neurontin] 300 mg PO TID 11/06/17 07/16/18 02/21/18 History Metoprolol [Lopressor TAB] 25 mg PO DAILY MDD BLOOD PRESSURE 11/06/17 07/16/18 02/21/18 History cloNIDine [Catapres] 0.1 mg PO DAILY 11/06/17 07/16/18 02/21/18 History Albuterol Sulfate [Albuterol 0.63% 0.63 mg IH PRN 02/21/18 07/16/18 02/21/18 History NEBS] Cinacalcet [Sensipar] 30 mg PO BID 02/21/18 07/16/18 02/21/18 History Furosemide [Lasix] 80 mg PO BID 02/21/18 07/16/18 02/21/18 History Ipratropium/Albuter (Nf) 2 puff INHALATION PRN 02/21/18 07/16/18 02/21/18 History [Combivent Inhaler] Losartan Potassium [Cozaar] 50 mg PO DAILY 02/21/18 07/16/18 02/21/18 History Sod,Ammonium,Potassium Lactate 1 mg TRANSDERMA PRN 02/21/18 07/16/18 02/21/18 History [Amlactin Foot Cream] Tamsulosin HCl [Flomax] 0.4 mg PO BID 02/21/18 07/16/18 02/21/18 History Temazepam [Restoril] 30 mg PO DAILY 02/21/18 07/16/18 02/21/18 History Triamcinolone 0.1% [Kenalog 0.1% 1 applic TP TID 02/21/18 07/16/18 02/21/18 History CREAM] Dorzolamide HCl/Timolol Maleat 1 drop OP DAILY 07/16/18 07/16/18 Unknown History [Cosopt Eye Drops] Active Medications: Generic Name Dose Route Start Last Admin Trade Name Freq PRN Reason Stop Dose Admin Acetaminophen 650 mg 07/16/18 02:20 07/20/18 04:35 Tylenol PO 650 mg Q4H PRN Administration Fever >101 Albuterol 2.5 mg 07/16/18 08:10 Proventil IH Q6HRT PRN Shortness Of Breath Albuterol/Ipratropium 1 ampul 07/18/18 08:00 07/20/18 07:25 Duoneb *Not For Prn Use* IH 1 ampul TIDRT [facility] Administration Aspirin 81 mg 07/16/18 10:00 07/19/18 09:02 Halfprin Ec PO 81 mg QDAY [facility] Administration Atorvastatin Calcium 40 mg 07/16/18 10:00 07/19/18 09:01 Lipitor PO 40 mg DAILY [facility] Administration Cinacalcet 30 mg 07/16/18 10:00 07/19/18 21:21 Sensipar PO 30 mg BID [facility] Administration Clonidine HCl 0.1 mg 07/16/18 10:00 07/19/18 09:00 Catapres PO 0.1 mg DAILY [facility] Administration Clopidogrel Bisulfate 75 mg 07/16/18 10:00 07/19/18 09:02 Plavix PO 75 mg QDAY [facility] Administration Dextrose 50 ml 07/16/18 02:29 D50w (25gm) Syringe IV PRN PRN Hypoglycemia Furosemide 80 mg 07/17/18 20:00 07/20/18 06:18 Lasix IV 80 mg 0600,1800 [facility] Administration Gabapentin 300 mg 07/16/18 08:00 07/20/18 08:23 Neurontin PO Not Given TID [facility] Heparin Sodium (Porcine) 5,000 unit 07/17/18 22:00 07/20/18 06:19 Heparin SUB-Q Not Given Q8HR [facility] Sodium Chloride 100 mls @ 999 mls/hr 07/16/18 17:06 Nacl 0.9% IV SHY PRN Hypotension Insulin Human Regular 0 units 07/16/18 07:30 07/20/18 08:23 Humulin R SUB-Q Not Given AC [facility] Protocol Insulin Human Regular 0 units 07/16/18 22:00 07/19/18 22:47 Humulin R SUB-Q Not Given QHS [facility] Protocol Losartan Potassium 50 mg 07/16/18 10:00 07/19/18 09:02 Cozaar PO 50 mg DAILY [facility] Administration Magnesium Hydroxide 30 ml 07/19/18 17:40 Milk Of Magnesia PO QDAY PRN Constipation Metoprolol Tartrate 25 mg 07/16/18 10:00 07/19/18 09:02 Lopressor PO 25 mg DAILY [facility] Administration Miscellaneous Medication 1 drop 07/16/18 10:00 07/19/18 21:21 Dorzolamide Hcl/Timolol Maleat [Cosopt Eye Drops] OP 1 drop DAILY [facility] Administration Ondansetron HCl 4 mg 07/16/18 02:23 Zofran IV Q8H PRN Nausea And Vomiting Tamsulosin HCl 0.4 mg 07/16/18 10:00 07/19/18 21:21 Flomax PO 0.4 mg BID [facility] Administration Temazepam 30 mg 07/17/18 22:00 07/19/18 21:21 Restoril PO 30 mg HS [facility] Administration Triamcinolone Acetonide 1 applic 07/16/18 08:00 07/20/18 08:22 Kenalog TP Not Given TID [facility]
[2018-07-20] MEDS: COZAAR PO SCH (09:18)
[2018-07-20] MEDS: CATAPRES PO SCH (09:18)
[2018-07-20] MEDS: LOPRESSOR PO SCH (09:19)
[2018-07-20] MEDS: NON-FORMULARY (Dorzolamide Hcl/Timolol Maleat [Cosopt Eye Drops] 1 DROP) OP SCH (09:19)
[2018-07-20] MEDS: HALFPRIN EC PO SCH (09:19)
[2018-07-20] MEDS: FLOMAX PO SCH ×2 (09:19→21:35)
[2018-07-20] MEDS: SENSIPAR PO SCH ×2 (09:20→21:35)
[2018-07-20] MEDS: PLAVIX PO SCH (09:20)
--- NOTE | 2018-07-20 09:59 | Progress Note ---
Assessment and Plan Cultures: 07/16/2018 blood:Streptococcus not group D, 1 out of 4 bottles 07/17/2018 blood: no growth to date 07/16/2018 MRSA: negative A/P: 73-year-old male with ESRD on hemodialysis via left AV fistula, diabetes mellitus type 2, coronary artery disease, status post left BKA. Now with: 1) Right lower lobe pneumonia versus pleural effusion: Upon comparing his chest x-ray with the previous one from February 2018, this seems to be like a chronic process. Patient without any fever, chills, cough or expectoration. No leukocytosis. Pneumonia seems less likely. No antibiotics indicated. Chest CT: Moderate right pleural effusion. Airspace disease and volume loss of right lower lobe is likely compressive atelectasis. Superimposed pneumonia not confirmed or excluded 2) Streptococcus non group D Bacteremia: 1/4 bottles likely Strep viridans, suspect contaminant. Repeat cultures negative. No abx needed. 3) ESRD on hemodialysis 4) Diabetes mellitus type 2 5) Chronic leukopenia and thrombocytopenia: Appears to be at baseline Recs: Monitor off antibiotics Clinically stable-ID is signing off [facility] M: [phone] O:[phone] Subjective Date of service: 07/20/18 Principal diagnosis: ESRD, pneumonia Interval history: Patient seen and examined. Denied generalized weakness, SOB or pain. Stated that he was ready to go home today. Objective - Exam Narrative Exam: Constitutional: Alert, cooperative. No acute distress Head, Ears, Nose: Normocephalic, atraumatic. External ears, nose normal Eyes: Conjunctivae/corneas clear. No icterus. No ptosis. Neck: Supple, no meningeal signs Oral: dentition fair with a few missing teeth, no thrush Cardiovascular: S1, S2 normal. Respiratory: Clear to auscultation. GI: Soft, non-tender; bowel sounds normal. No peritoneal signs Musculoskeletal: No pedal edema, no cyanosis. Left BKA stump healed. Left arm AVF/AVG Skin: No rash or abscess Hem/Lymphatic: No palpable cervical or supraclavicular nodes. No lymphangitis Psych: Mood ok. Affect normal Neurological: Awake, alert, oriented. No gross abnormality - Constitutional Vitals: Vital Signs Temp Pulse Resp BP Pulse Ox 97.6 F 67 18 107/61 99 07/20/18 07:18 07/20/18 07:47 07/20/18 07:47 07/20/18 07:18 07/20/18 07:29 Temperature -Last 24 Hours Temperature 97.6 F Temperature 98.3 F Temperature 98.6 F Temperature 97.4 F - Labs CBC & Chem 7: 07/20/18 04:20 07/20/18 04:20 Labs: Abnormal lab results 07/19/18 07/19/18 07/20/18 Range/Units 11:24 21:50 04:20 WBC 2.6 L (4.5-11.0) K/mm3 RBC 3.21 L (3.65-5.03) M/mm3 Hgb 10.2 L (11.8-15.2) gm/dl Hct 30.3 L (35.5-45.6) % RDW 17.9 H (13.2-15.2) % Plt Count 100 L (140-440) K/mm3 Lymphocytes % (Manual) 13.0 L (13.4-35.0) % Monocytes % (Manual) 13.0 H (0.0-7.3) % Eosinophils % (Manual) 8.0 H (0.0-4.3) % Seg Neutrophils # Man 1.7 L (1.8-7.7) K/mm3 Lymphocytes # (Manual) 0.3 L (1.2-5.4) K/mm3 PT (12.2-14.9) Sec. INR (0.87-1.13) Sodium (137-145) mmol/L Chloride (98-107) mmol/L BUN (9-20) mg/dL Creatinine (0.8-1.5) mg/dL POC Glucose 61 L 145 H (70-105) Calcium (8.4-10.2) mg/dL 07/20/18 07/20/18 Range/Units 04:20 04:20 WBC (4.5-11.0) K/mm3 RBC (3.65-5.03) M/mm3 Hgb (11.8-15.2) gm/dl Hct (35.5-45.6) % RDW (13.2-15.2) % Plt Count (140-440) K/mm3 Lymphocytes % (Manual) (13.4-35.0) % Monocytes % (Manual) (0.0-7.3) % Eosinophils % (Manual) (0.0-4.3) % Seg Neutrophils # Man (1.8-7.7) K/mm3 Lymphocytes # (Manual) (1.2-5.4) K/mm3 PT 15.6 H (12.2-14.9) Sec. INR 1.17 H (0.87-1.13) Sodium 135 L (137-145) mmol/L Chloride 92.6 L (98-107) mmol/L BUN 48 H (9-20) mg/dL Creatinine 8.6 H D (0.8-1.5) mg/dL POC Glucose (70-105) Calcium 8.3 L (8.4-10.2) mg/dL
--- NOTE | 2018-07-20 14:01 | Progress Note ---
Assessment and Plan Patient awake. Resting on room air. O2 saturation 97%. No acute respiratory distress. - Patient Problems (1) Pleural effusion Current Visit: Yes Status: Acute Plan to address problem: obtaining U/S of chest. (2) Pneumonia Current Visit: Yes Status: Acute Plan to address problem: patient clinically improved. patient off antibiotics. repeating CXR. (3) ESRD (end stage renal disease) on dialysis Current Visit: Yes Status: Chronic Plan to address problem: as per nephrology (4) ACS (acute coronary syndrome) Current Visit: No Status: Acute Plan to address problem: as per cardiology (5) Type 2 diabetes mellitus Current Visit: No Status: Acute Qualifiers: Diabetes mellitus penitentiary insulin use: without penitentiary use Diabetes mellitus complication status: without complication Qualified Code(s): E11.9 - Type 2 diabetes mellitus without complications Plan to address problem: as per primary (6) HTN (hypertension) Current Visit: No Status: Chronic Qualifiers: Hypertension type: essential hypertension Qualified Code(s): I10 - Esse ntial (primary) hypertension Plan to address problem: as per primary Subjective Date of service: 07/20/18 Principal diagnosis: ESRD, pneumonia Interval history: Patient awake. Resting on room air. O2 saturation 97%. No acute respiratory distress. Objective Vital Signs - 12hr 07/20/18 07/20/18 07/20/18 02:40 02:41 07:18 Temperature 98.3 F 97.6 F Pulse Rate 63 65 Pulse Rate [ Anterior Bilateral Throughout] Respiratory 20 18 Rate Respiratory Rate [Anterior Bilateral Throughout] Blood Pressure 100/60 107/61 O2 Sat by Pulse 98 98 Oximetry 07/20/18 07/20/18 07/20/18 07:26 07:29 07:47 Temperature Pulse Rate Pulse Rate [ 63 67 Anterior Bilateral Throughout] Respiratory Rate Respiratory 18 18 Rate [Anterior Bilateral Throughout] Blood Pressure O2 Sat by Pulse 99 Oximetry 07/20/18 07/20/18 13:11 13:22 Temperature Pulse Rate Pulse Rate [ 70 67 Anterior Bilateral Throughout] Respiratory Rate Respiratory 18 18 Rate [Anterior Bilateral Throughout] Blood Pressure O2 Sat by Pulse Oximetry Constitutional: no acute distress, alert Eyes: non-icteric ENT: oropharynx moist Neck: supple, no lymphadenopathy Ascultation: Bilateral: other (prolonged expiratory phase) Cardiovascular: regular rate and rhythm Gastrointestinal: normoactive bowel sounds, soft Integumentary: normal Extremities: no cyanosis, no edema Neurologic: normal mental status, non-focal exam, pupils equal and round, CN II-XII normal Psychiatric: mood appropriate CBC and BMP: 07/20/18 04:20 07/20/18 04:20 ABG, PT/INR, D-dimer: PT/INR, D-dimer PT 15.6 Sec. (12.2-14.9) H 07/20/18 04:20 INR 1.17 (0.87-1.13) H 07/20/18 04:20 D-Dimer 6405.88 ng/mlDDU (0-234) H 07/16/18 16:54 Abnormal lab findings: Abnormal Labs 07/16/18 07/16/18 07/16/18 00:50 00:50 00:50 WBC 3.1 L RBC 3.59 L Hgb 11.4 L Hct 33.5 L RDW 17.9 H Plt Count 104 L Seg Neuts % (Manual) Lymphocytes % (Manual) Monocytes % (Manual) Eosinophils % (Manual) Seg Neutrophils # Man Lymphocytes # (Manual) PT 15.6 H INR 1.17 H APTT D-Dimer Heparin Anti-Xa Level Sodium Chloride BUN Creatinine Glucose POC Glucose Calcium Magnesium 2.40 H 07/16/18 07/16/18 07/17/18 00:50 16:54 05:52 WBC RBC Hgb 10.3 L Hct 30.3 L RDW Plt Count 94 L Seg Neuts % (Manual) Lymphocytes % (Manual) Monocytes % (Manual) Eosinophils % (Manual) Seg Neutrophils # Man Lymphocytes # (Manual) PT INR APTT D-Dimer 6405.88 H Heparin Anti-Xa Level Sodium Chloride 93.8 L BUN 21 H Creatinine 4.8 H Glucose POC Glucose Calcium Magnesium 07/17/18 07/17/18 07/18/18 07:53 22:06 04:56 WBC 3.2 L RBC 3.21 L Hgb 10.0 L Hct 30.2 L RDW 17.7 H Plt Count 91 L Seg Neuts % (Manual) 78.0 H Lymphocytes % (Manual) 13.0 L Monocytes % (Manual) Eosinophils % (Manual) Seg Neutrophils # Man Lymphocytes # (Manual) 0.4 L PT 17.6 H INR 1.36 H APTT > 240.0 H* D-Dimer Heparin Anti-Xa Level 0.76 H Sodium Chloride BUN Creatinine Glucose POC Glucose 150 H Calcium Magnesium 07/18/18 07/18/18 07/18/18 04:56 08:05 11:50 WBC RBC Hgb Hct RDW Plt Count Seg Neuts % (Manual) Lymphocytes % (Manual) Monocytes % (Manual) Eosinophils % (Manual) Seg Neutrophils # Man Lymphocytes # (Manual) PT INR APTT D-Dimer Heparin Anti-Xa Level Sodium Chloride 95.7 L BUN 24 H Creatinine 5.4 H Glucose 106 H POC Glucose 125 H 121 H Calcium Magnesium 07/18/18 07/18/18 07/19/18 16:19 21:55 07:10 WBC RBC Hgb Hct RDW Plt Count Seg Neuts % (Manual) Lymphocytes % (Manual) Monocytes % (Manual) Eosinophils % (Manual) Seg Neutrophils # Man Lymphocytes # (Manual) PT INR APTT D-Dimer Heparin Anti-Xa Level Sodium Chloride BUN Creatinine Glucose POC Glucose 271 H 119 H 159 H Calcium Magnesium 07/19/18 07/19/18 07/20/18 11:24 21:50 04:20 WBC 2.6 L RBC 3.21 L Hgb 10.2 L Hct 30.3 L RDW 17.9 H Plt Count 100 L Seg Neuts % (Manual) Lymphocytes % (Manual) 13.0 L Monocytes % (Manual) 13.0 H Eosinophils % (Manual) 8.0 H Seg Neutrophils # Man 1.7 L Lymphocytes # (Manual) 0.3 L PT INR APTT D-Dimer Heparin Anti-Xa Level Sodium Chloride BUN Creatinine Glucose POC Glucose 61 L 145 H Calcium Magnesium 07/20/18 07/20/18 07/20/18 04:20 04:20 12:31 WBC RBC Hgb Hct RDW Plt Count Seg Neuts % (Manual) Lymphocytes % (Manual) Monocytes % (Manual) Eosinophils % (Manual) Seg Neutrophils # Man Lymphocytes # (Manual) PT 15.6 H INR 1.17 H APTT D-Dimer Heparin Anti-Xa Level Sodium 135 L Chloride 92.6 L BUN 48 H Creatinine 8.6 H D Glucose POC Glucose 126 H Calcium 8.3 L Magnesium
[2018-07-20] MEDS ORDERED: NACL 0.9 (PRIMING MACHINE ONLY DIALYSIS) MC ONE (17:06)
--- NOTE | 2018-07-20 17:33 | XRay Report ---
PROCEDURE: XR CHEST ROUTINE 2V HISTORY: follow up on pneumonia FINDINGS: Frontal and lateral views the chest were acquired and compared to the CT examination of Jul. There is cardiomegaly. There is a right pleural effusion, including loculated fluid in the rig ht major fissure. There is a right lower lobe infiltrate, likely pneumonia. This does not appear to b e substantially changed in comparison to recent CT. IMPRESSION: Right pleural effusion and right lower lobe infiltrate, similar to prior CT of July 17 This document is electronically signed by Yusef Montague MD., July 20 2018 05:31:42 PM ET
[2018-07-20] MEDS: RESTORIL PO SCH (21:36)
[2018-07-21] MEDS: TYLENOL PO PRN ×2 (01:37→06:55)
[2018-07-21] MEDS: HEPARIN SUB-Q SCH ×2 (05:38→15:19)
[2018-07-21] MEDS: LASIX IV SCH (05:39)
--- NOTE | 2018-07-21 07:44 | Ultrasound Report ---
ULTRASOUND CHEST History: Pleural effusion. Findings: Targeted grayscale ultrasound was performed on both sides of the chest to assess for pleural fluid. There is a moderate simple appearing right pleural effusion estimated at 220 cc. There is no left pleural effusion. These findings appear slightly improved since the CT chest without contrast performed 07/17/18. IMPRESSION: Right pleural effusion as described. No left pleural effusion.
[2018-07-21] MEDS: HumuLIN R SUB-Q SCH ×3 (08:11→16:27)
--- NOTE | 2018-07-21 08:24 | Progress Note ---
Assessment and Plan - Patient Problems (1) Pleural effusion Current Visit: Yes Status: Acute Plan to address problem: Ultrasound shows simple right pleural effusion of moderate size. Appears to be a bit improved (2) Pneumonia Current Visit: Yes Status: Acute Plan to address problem: Question atelectasis versus infiltrates. (3) ESRD (end stage renal disease) on dialysis Current Visit: Yes Status: Chronic Plan to address problem: Continue hemodialysis on a Friday, Friday and Friday schedule. (4) Hypertensive chronic kidney disease with stage 5 chronic kidney disease or end stage renal disease Current Visit: No Status: Acute Plan to address problem: Follow-up blood pressure on current medications (5) Type 2 diabetes mellitus with diabetic nephropathy Current Visit: No Status: Acute Plan to address problem: Blood sugar management by primary attending. Subjective Date of service: 07/21/18 Principal diagnosis: ESRD, pneumonia Interval history: Patient seen lying in bed. He has no complaints this morning. He is feeling better. Denies chest pain or shortness of breath. No nausea or vomiting. Objective - Exam Narrative Exam: Elderly -[place] female lying in bed in no acute distress HEENT: NCAT, pink oral mucous membrane Neck: Supple, no venous distention CVS: S1S2 RRR with no murmur, rub or gallop Chest: Diminished breath sounds right lung zone Abdomen: Protuberant, soft, nontender, no organomegaly, bowel sounds are present Extremities: No edema, below knee amputation Neuro: Awake, alert no focal deficits - Vital Signs Vital signs: Vital Signs - 12hr 07/20/18 07/20/18 07/20/18 20:45 20:47 21:02 Temperature Pulse Rate Pulse Rate [ 77 72 Anterior Bilateral Throughout] Pulse Rate [ Apical] Respiratory Rate Respiratory 18 18 Rate [Anterior Bilateral Throughout] Blood Pressure O2 Sat by Pulse 100 Oximetry 07/20/18 07/21/18 07/21/18 22:00 01:50 01:59 Temperature 97.7 F Pulse Rate 85 76 Pulse Rate [ Anterior Bilateral Throughout] Pulse Rate [ 85 Apical] Respiratory 18 20 Rate Respiratory Rate [Anterior Bilateral Throughout] Blood Pressure 106/53 O2 Sat by Pulse Oximetry 07/21/18 07:41 Temperature 97.6 F Pulse Rate 68 Pulse Rate [ Anterior Bilateral Throughout] Pulse Rate [ Apical] Respiratory 18 Rate Respiratory Rate [Anterior Bilateral Throughout] Blood Pressure 124/56 O2 Sat by Pulse 100 Oximetry - Lab 07/20/18 04:20 07/20/18 04:20 Most recent lab results Calcium 8.3 mg/dL (8.4-10.2) L 07/20/18 04:20 Magnesium 2.40 mg/dL (1.7-2.3) H 07/16/18 00:50 Medications & Allergies - Medications Allergies/Adverse Reactions: Allergies No Known Allergies Allergy (Verified 11/06/17 12:21) Home Medications: Home Medications Medication Instructions Recorded Confirmed Last Taken Type Aspirin EC [Aspirin Enteric Coated 81 mg PO QDAY 11/06/17 07/16/18 02/21/18 History TAB] AtorvaSTATin [Lipitor] 40 mg PO DAILY 11/06/17 07/16/18 02/21/18 History Clopidogrel [Plavix] 75 mg PO QDAY 11/06/17 07/16/18 02/21/18 History Gabapentin [Neurontin] 300 mg PO TID 11/06/17 07/16/18 02/21/18 History Metoprolol [Lopressor TAB] 25 mg PO DAILY MDD BLOOD PRESSURE 11/06/17 07/16/18 02/21/18 History cloNIDine [Catapres] 0.1 mg PO DAILY 11/06/17 07/16/18 02/21/18 History Albuterol Sulfate [Albuterol 0.63% 0.63 mg IH PRN 02/21/18 07/16/18 02/21/18 History NEBS] Cinacalcet [Sensipar] 30 mg PO BID 02/21/18 07/16/18 02/21/18 History Furosemide [Lasix] 80 mg PO BID 02/21/18 07/16/18 02/21/18 History Ipratropium/Albuter (Nf) 2 puff INHALATION PRN 02/21/18 07/16/18 02/21/18 History [Combivent Inhaler] Losartan Potassium [Cozaar] 50 mg PO DAILY 02/21/18 07/16/18 02/21/18 History Sod,Ammonium,Potassium Lactate 1 mg TRANSDERMA PRN 02/21/18 07/16/18 02/21/18 History [Amlactin Foot Cream] Tamsulosin HCl [Flomax] 0.4 mg PO BID 02/21/18 07/16/18 02/21/18 History Temazepam [Restoril] 30 mg PO DAILY 02/21/18 07/16/18 02/21/18 History Triamcinolone 0.1% [Kenalog 0.1% 1 applic TP TID 02/21/18 07/16/18 02/21/18 History CREAM] Dorzolamide HCl/Timolol Maleat 1 drop OP DAILY 07/16/18 07/16/18 Unknown History [Cosopt Eye Drops] Active Medications: Generic Name Dose Route Start Last Admin Trade Name Freq PRN Reason Stop Dose Admin Acetaminophen 650 mg 07/16/18 02:20 07/21/18 06:55 Tylenol PO 650 mg Q4H PRN Administration Fever >101 Albuterol 2.5 mg 07/16/18 08:10 Proventil IH Q6HRT PRN Shortness Of Breath Albuterol/Ipratropium 1 ampul 07/18/18 08:00 07/20/18 20:45 Duoneb *Not For Prn Use* IH 1 ampul TIDRT ROBB Administration Aspirin 81 mg 07/16/18 10:00 07/20/18 09:19 Halfprin Ec PO Not Given QDAY ROBB Atorvastatin Calcium 40 mg 07/16/18 10:00 07/20/18 09:19 Lipitor PO Not Given DAILY [facility] Cinacalcet 30 mg 07/16/18 10:00 07/20/18 21:35 Sensipar PO 30 mg BID ROBB Administration Clonidine HCl 0.1 mg 07/16/18 10:00 07/20/18 09:18 Catapres PO Not Given DAILY ROBB Dextrose 50 ml 07/16/18 02:29 D50w (25gm) Syringe IV PRN PRN Hypoglycemia Furosemide 80 mg 07/17/18 20:00 07/21/18 05:39 Lasix IV 80 mg 0600,1800 ROBB Administration Gabapentin 300 mg 07/16/18 08:00 07/20/18 21:34 Neurontin PO 300 mg TID ROBB Administration Heparin Sodium (Porcine) 5,000 unit 07/17/18 22:00 07/21/18 05:38 Heparin SUB-Q Not Given Q8HR ROBB Sodium Chloride 100 mls @ 999 mls/hr 07/16/18 17:06 Nacl 0.9% IV SHY PRN Hypotension Insulin Human Regular 0 units 07/16/18 07:30 07/21/18 08:11 Humulin R SUB-Q Not Given AC [facility] Protocol Insulin Human Regular 0 units 07/16/18 22:00 07/20/18 22:36 Humulin R SUB-Q Not Given QHS [facility] Protocol Losartan Potassium 50 mg 07/16/18 10:00 07/20/18 09:18 Cozaar PO Not Given DAILY [facility] Magnesium Hydroxide 30 ml 07/19/18 17:40 Milk Of Magnesia PO QDAY PRN Constipation Metoprolol Tartrate 25 mg 07/16/18 10:00 07/20/18 09:19 Lopressor PO Not Given DAILY [facility] Miscellaneous Medication 1 drop 07/16/18 10:00 07/20/18 09:19 Dorzolamide Hcl/Timolol Maleat [Cosopt Eye Drops] OP Not Given DAILY [facility] Ondansetron HCl 4 mg 07/16/18 02:23 Zofran IV Q8H PRN Nausea And Vomiting Tamsulosin HCl 0.4 mg 07/16/18 10:00 07/20/18 21:35 Flomax PO 0.4 mg BID ROBB Administration Temazepam 30 mg 07/17/18 22:00 07/20/18 21:36 Restoril PO 30 mg HS ROBB Administration Triamcinolone Acetonide 1 applic 07/16/18 08:00 07/20/18 21:39 Kenalog TP 1 applic TID [facility] Administration
--- NOTE | 2018-07-21 08:45 | Progress Note ---
Assessment and Plan Pleural effusion vs Pneumonia Volume overload ESRD on dialysis Hx of CAD s/p PCI 07/2017 EF 40-45% on echocardiogram 02/2018. Outpatient MPI 01/2018 unchanged from study done 05/2017 Chronic elevated troponins Hypertension PVD s/p left BKA Chronic elevated troponin ECG is sinus rhythm with a marked first-degree AV block, and right bundle branch block. Recommendations: Hemodialysis for fluid management. Medical therapy for underlying coronary artery disease. Otherwise, conservative cardiac management. Subjective Date of service: 07/21/18 Principal diagnosis: ESRD, pneumonia Interval history: Patient has no complaints. Awaits for planned thoracentesis. Objective Vital Signs Temp Pulse Pulse Pulse Resp Resp BP 07/21/18 07:41 97.6 F 68 18 124/56 07/21/18 01:59 76 07/21/18 01:50 97.7 F 20 106/53 07/20/18 22:00 85 85 18 07/20/18 21:02 72 18 07/20/18 20:47 07/20/18 20:45 77 18 07/20/18 19:54 97.9 F 85 18 113/56 07/20/18 18:46 126/64 07/20/18 18:39 74 07/20/18 18:38 76 126/64 07/20/18 13:24 97.5 F L 69 18 100/55 07/20/18 13:22 67 18 07/20/18 13:11 70 18 07/20/18 12:10 98.0 F 68 18 125/57 07/20/18 12:00 68 118/66 07/20/18 11:45 68 110/64 07/20/18 11:30 69 110/60 07/20/18 11:15 69 110/55 07/20/18 11:00 68 118/57 07/20/18 10:45 66 100/54 07/20/18 10:30 66 106/55 07/20/18 10:15 66 111/56 07/20/18 10:00 66 113/56 07/20/18 09:45 66 116/59 07/20/18 09:30 64 113/59 07/20/18 09:15 64 113/64 07/20/18 09:00 64 118/64 07/20/18 08:45 61 106/63 BP Pulse Ox 07/21/18 07:41 100 04/16/19 01:59 07/21/18 01:50 07/20/18 22:00 07/20/18 21:02 07/20/18 20:47 100 07/20/18 20:45 07/20/18 19:54 96 07/20/18 18:46 07/20/18 18:39 126/64 07/20/18 18:38 98 07/20/18 13:24 97 07/20/18 13:22 07/20/18 13:11 07/20/18 12:10 07/20/18 12:00 07/20/18 11:45 07/20/18 11:30 07/20/18 11:15 07/20/18 11:00 07/20/18 10:45 07/20/18 10:30 07/20/18 10:15 07/20/18 10:00 07/20/18 09:45 07/20/18 09:30 07/20/18 09:15 07/20/18 09:00 07/20/18 08:45 - Physical Examination General: No Apparent Distress HEENT: Positive: PERRL Neck: Positive: neck supple Cardiac: Positive: Reg Rate and Rhythm Lungs: Positive: Decreased Breath Sounds Neuro: Positive: Grossly Intact
[2018-07-21] MEDS: DUONEB *Not for PRN Use IH SCH ×2 (09:04→14:10)
[2018-07-21] MEDS: NEURONTIN PO SCH ×2 (10:16→15:19)
[2018-07-21] MEDS: KENALOG TP SCH ×2 (10:16→15:19)
[2018-07-21] MEDS: CATAPRES PO SCH (10:17)
[2018-07-21] MEDS: COZAAR PO SCH (10:18)
[2018-07-21] MEDS: FLOMAX PO SCH (10:18)
[2018-07-21] MEDS: NON-FORMULARY (Dorzolamide Hcl/Timolol Maleat [Cosopt Eye Drops] 1 DROP) OP SCH (10:18)
--- NOTE | 2018-07-21 12:20 | Discharge Summary ---
Providers - Providers Date of Admission: 07/16/18 02:11 Attending physician: ERMELINDA ADAMES MD 07/16/18 01:19 Consult to Physician [CONS] Urgent Comment: Dr. Roberts spoke with Dr. Owens @ 0119 Consulting Provider: XU JOVEL Physician Instructions: Reason For Exam: hcap 07/16/18 11:47 Consult to Physician [CONS] Routine Comment: Consulting Provider: ANDRES HUBBARD Physician Instructions: Reason For Exam: sepsis, pna 07/16/18 16:31 Consult to Physician [CONS] Routine Comment: Consulting Provider: LOUISE BROTHERS Physician Instructions: Reason For Exam: sob 07/17/18 10:35 Physical Therapy Evaluation and Treat [CONS] Routine Comment: Reason For Exam: weakness 07/17/18 14:58 Consult to Physician [CONS] Routine Comment: called office/woody Consulting Provider: BIN LIZ Physician Instructions: Reason For Exam: heart failure Primary care physician: PAVING FOREMAN Hospitalization Reason for admission: respiratory failure Condition: Good Hospital course: 73M w pmh of htn, esrd MWF, CAD, neuropathy and BPH pw sob and orthopnea. During the hospitalization patient had an echocardiogram which showed an ejection fraction of 40% on 1118 cardiology was consulted and recommended conservative management. Patient also underwent a thoracentesis based on finding on the chest CT which showed right moderate pleural effusion. Patient was seen by pulmonary and will follow with the patient's outpatient to review analysis of the fluids. The patient continued to receive dialysis with nephrology while in house. Other chronic diseases without management included hypertension dyslipidemia and diabetes mellitus with extensive discussion with the patient about compliance. Following thoracentesis as the patient was no longer needs oxygen and is stable for discharge at this time CT chest; RIght moderate effusion Diagnosis R pleural effusion Ascites FLuid overload PNA ruled out End-stage renal disease Hypertension; moderate control, Dyslipidemia BPH Peripheral neuropathy Type 2 diabetes mellitus Chronic thrombocytopenia and leukopenia; Disposition: [id number] HOME [facility] Time spent for discharge: 35 mins Core Measure Documentation - Palliative Care Palliative Care/ Comfort Measures: Not Applicable - Core Measures Any of the following diagnoses?: none Exam - Physical Exam Narrative exam: General appearance: Present: no acute distress, well-nourished, reports does not feel like he needs oxygen - EENT Eyes: Present: PERRL, EOM intact - Neck Neck: Present: supple, normal ROM - Respiratory Respiratory effort: normal Respiratory: bilateral: diminished, rhonchi, negative: rales, wheezing - Cardiovascular Rhythm: regular Heart Sounds: Present: S1 & S2 - Extremities Extremities: no ischemia, No edema, abnormal ( left BKA) - Abdominal General gastrointestinal: soft, non-tender, non-distended, normal bowel sounds - Integumentary Integumentary: Present: clear, warm - Psychiatric Psychiatric: appropriate mood/affect, cooperative - Neurologic Neurologic: CNII-XII intact, moves all extremities l - Constitutional Vitals: Temp Pulse Resp BP Pulse Ox 97.6 F 70 16 124/56 100 07/21/18 07:41 07/21/18 09:13 07/21/18 09:13 07/21/18 07:41 07/21/18 09:04 Plan Activity: advance as tolerated, fall precautions Diet: diabetic, renal Special Instructions: restrict fluid intake to (1000cc/day or per Nephrology advise), record daily weights, record daily BP diary Follow up with: TOMY HOPE MD [Staff Physician] - 3-5 Days XU JOVEL MD [Staff Physician] - 7 Days MAYELA JOHNSON MD [Staff Physician] - 7 Days BIN LIZ MD [Staff Physician] - 7 Days
[2018-07-21] MEDS: SENSIPAR PO SCH (12:27)
[2018-07-21] MEDS: HALFPRIN EC PO SCH (12:27)
[2018-07-21] MEDS: LOPRESSOR PO SCH (12:27)
[2018-07-21] MEDS ORDERED: XYLOCAINE 1% 20 mL ONE (13:30)
--- NOTE | 2018-07-21 13:48 | Progress Note ---
Assessment and Plan Patient awake. Resting on room air. O2 saturation 98%. No acute respiratory distress. Patients Ultrasound showed about 220 ml of right pleural effusion. Patient undergone thoracentesis underultrasound.Pleural fluid results pending. If patient going going home ,can follow in my office as out patient. Can go over the results at that time. Recommend to come my office with in 1 week. - Patient Problems (1) Pleural effusion Current Visit: Yes Status: Acute Plan to address problem: Patient undergone right thoracentesis under ultrasound guidance. Pleural fluid results pending. (2) Pneumonia Current Visit: Yes Status: Acute Plan to address problem: patient clinically improved. patient off antibiotics. (3) ESRD (end stage renal disease) on dialysis Current Visit: Yes Status: Chronic Plan to address problem: as per nephrology (4) ACS (acute coronary syndrome) Current Visit: No Status: Acute Plan to address problem: as per cardiology (5) Type 2 diabetes mellitus Current Visit: No Status: Acute Qualifiers: Diabetes mellitus fci insulin use: without fci use Diabetes mellitus complication status: without complication Qualified Code(s): E11.9 - Type 2 diabetes mellitus without complications Plan to address problem: as per primary care. (6) HTN (hypertension) Current Visit: No Status: Chronic Qualifiers: Hypertension type: essential hypertension Qualified Code(s): I10 - Essential (primary) hypertension Plan to address problem: as per primary care. Subjective Date of service: 07/21/18 Principal diagnosis: ESRD, pneumonia Interval history: Patient awake. Resting on room air. O2 saturation 98%. No acute respiratory distress. Patients Ultrasound showed about 220 ml of right pleural effusion. Patient undergone thoracentesis underultrasound.Pleural fluid results pending. If patient going going home ,can follow in my office as out patient. Can go over the results at that time. Recommend to come my office with in 1 week. Objective Vital Signs - 12hr 07/21/18 07/21/18 07/21/18 01:50 01:59 07:41 Temperature 97.7 F 97.6 F Pulse Rate 76 68 Pulse Rate [ Anterior Bilateral Throughout] Respiratory 20 18 Rate Respiratory Rate [Anterior Bilateral Throughout] Blood Pressure 106/53 124/56 O2 Sat by Pulse 100 Oximetry 07/21/18 07/21/18 07/21/18 09:04 09:13 13:08 Temperature 97.7 F Pulse Rate 69 Pulse Rate [ 66 70 Anterior Bilateral Throughout] Respiratory 18 Rate Respiratory 16 16 Rate [Anterior Bilateral Throughout] Blood Pressure 95/68 O2 Sat by Pulse 100 98 Oximetry Constitutional: no acute distress, alert Eyes: non-icteric ENT: oropharynx moist Neck: supple, no lymphadenopathy Ascultation: Bilateral: other (prolonged expiratory phase) Cardiovascular: regular rate and rhythm Gastrointestinal: normoactive bowel sounds, soft Integumentary: normal Extremities: no cyanosis, no edema Neurologic: normal mental status, non-focal exam, pupils equal and round, CN II- XII normal Psychiatric: mood appropriate CBC and BMP: 07/20/18 04:20 07/20/18 04:20 ABG, PT/INR, D-dimer: PT/INR, D-dimer PT 15.6 Sec. (12.2-14.9) H 07/20/18 04:20 INR 1.17 (0.87-1.13) H 07/20/18 04:20 D-Dimer 6405.88 ng/mlDDU (0-234) H 07/16/18 16:54 Abnormal lab findings: Abnormal Labs 07/16/18 07/16/18 07/16/18 00:50 00:50 00:50 WBC 3.1 L RBC 3.59 L Hgb 11.4 L Hct 33.5 L RDW 17.9 H Plt Count 104 L Seg Neuts % (Manual) Lymphocytes % (Manual) Monocytes % (Manual) Eosinophils % (Manual) Seg Neutrophils # Man Lymphocytes # (Manual) PT 15.6 H INR 1.17 H APTT D-Dimer Heparin Anti-Xa Level Sodium Chloride BUN Creatinine Glucose POC Glucose Calcium Magnesium 2.40 H 07/16/18 07/16/18 07/17/18 00:50 16:54 05:52 WBC RBC Hgb 10.3 L Hct 30.3 L RDW Plt Count 94 L Seg Neuts % (Manual) Lymphocytes % (Manual) Monocytes % (Manual) Eosinophils % (Manual) Seg Neutrophils # Man Lymphocytes # (Manual) PT INR APTT D-Dimer 6405.88 H Heparin Anti-Xa Level Sodium Chloride 93.8 L BUN 21 H Creatinine 4.8 H Glucose POC Glucose Calcium Magnesium 07/17/18 07/17/18 07/18/18 07:53 22:06 04:56 WBC 3.2 L RBC 3.21 L Hgb 10.0 L Hct 30.2 L RDW 17.7 H Plt Count 91 L Seg Neuts % (Manual) 78.0 H Lymphocytes % (Manual) 13.0 L Monocytes % (Manual) Eosinophils % (Manual) Seg Neutrophils # Man Lymphocytes # (Manual) 0.4 L PT 17.6 H INR 1.36 H APTT > 240.0 H* D-Dimer Heparin Anti-Xa Level 0.76 H Sodium Chloride BUN Creatinine Glucose POC Glucose 150 H Calcium Magnesium 07/18/18 07/18/18 07/18/18 04:56 08:05 11:50 WBC RBC Hgb Hct RDW Plt Count Seg Neuts % (Manual) Lymphocytes % (Manual) Monocytes % (Manual) Eosinophils % (Manual) Seg Neutrophils # Man Lymphocytes # (Manual) PT INR APTT D-Dimer Heparin Anti-Xa Level Sodium Chloride 95.7 L BUN 24 H Creatinine 5.4 H Glucose 106 H POC Glucose 125 H 121 H Calcium Magnesium 07/18/18 07/18/18 07/19/18 16:19 21:55 07:10 WBC RBC Hgb Hct RDW Plt Count Seg Neuts % (Manual) Lymphocytes % (Manual) Monocytes % (Manual) Eosinophils % (Manual) Seg Neutrophils # Man Lymphocytes # (Manual) PT INR APTT D-Dimer Heparin Anti-Xa Level Sodium Chloride BUN Creatinine Glucose POC Glucose 271 H 119 H 159 H Calcium Magnesium 07/19/18 07/19/18 07/20/18 11:24 21:50 04:20 WBC 2.6 L RBC 3.21 L Hgb 10.2 L Hct 30.3 L RDW 17.9 H Plt Count 100 L Seg Neuts % (Manual) Lymphocytes % (Manual) 13.0 L Monocytes % (Manual) 13.0 H Eosinophils % (Manual) 8.0 H Seg Neutrophils # Man 1.7 L Lymphocytes # (Manual) 0.3 L PT INR APTT D-Dimer Heparin Anti-Xa Level Sodium Chloride BUN Creatinine Glucose POC Glucose 61 L 145 H Calcium Magnesium 07/20/18 07/20/18 07/20/18 04:20 04:20 12:31 WBC RBC Hgb Hct RDW Plt Count Seg Neuts % (Manual) Lymphocytes % (Manual) Monocytes % (Manual) Eosinophils % (Manual) Seg Neutrophils # Man Lymphocytes # (Manual) PT 15.6 H INR 1.17 H APTT D-Dimer Heparin Anti-Xa Level Sodium 135 L Chloride 92.6 L BUN 48 H Creatinine 8.6 H D Glucose POC Glucose 126 H Calcium 8.3 L Magnesium 07/20/18 22:06 WBC RBC Hgb Hct RDW Plt Count Seg Neuts % (Manual) Lymphocytes % (Manual) Monocytes % (Manual) Eosinophils % (Manual) Seg Neutrophils # Man Lymphocytes # (Manual) PT INR APTT D-Dimer Heparin Anti-Xa Level Sodium Chloride BUN Creatinine Glucose POC Glucose 147 H Calcium Magnesium
--- NOTE | 2018-07-21 15:10 | Ultrasound Report ---
ULTRASOUND THORACENTESIS History: Pleural effusion. Description of procedure: Informed consent was obtained. Sterile technique was utilized. 1% lidocaine for skin anesthesia. Using ultrasound guidance, a 5 Belgian centesis needle was advanced into the right pleural space. There was spontaneous return of clear yellow fluid. 650 cc of fluid was aspirated. 120 cc of fluid was sent to the lab for analysis. No complications. Impression: Successful ultrasound-guided right thoracentesis.
--- NOTE | 2018-07-21 15:12 | Procedure Note ---
Date of procedure: 07/21/18 Pre-op diagnosis: right pleural effusion Post-op diagnosis: same Procedure: US thoracentesis, right Findings: moderate pleural effusion, right Anesthesia: local Surgeon: MIESHA PERSAUD Estimated blood loss: none Pathology: list (120cc) Specimen disposition: to lab Condition: stable Disposition: floor
[2018-07-21 17:06] LABS: Total Cells Counted 100 /mm3
--- NOTE | 2018-07-21 17:08 | XRay Report ---
PROCEDURE: XR CHEST 1V AP TECHNIQUE: Chest single AP HISTORY: right pleural effusion, recent thora COMPARISONS: Comparison is July 20, 2018 FINDINGS: There is minimal blunting of the right costophrenic angle. No evidence for pneumothorax. No confluent pulmonary infiltrate identified. Cardiac silhouette is prominent in size. Pulmonary vasculature is u nremarkable IMPRESSION: Minimal right pleural effusion No evidence for pneumothorax or acute infiltrate. This document is electronically signed by Daniel Lam MD., July 21 2018 05:05:54 PM ET
[2018-07-21 18:12] VITALS: BP 131/64
[2018-07-27 10:08] LABS: LDH,Body Fluid 145; Total Protein,Body Fluid 4.1 (15.0-45.0)
== END 2018-07-21 17:35 | disposition home health service (06) | DRG 186 ==
LOC: ED → 2B-ACE 02:11
PROVIDERS: ADMIT Internal Medicine; ATTEND Internal Medicine
PROC: 5A1D70Z Performance of Urinary Filtration, Intermittent, Less than 6 Hours Per Day (ICD-10-PCS; principal; 2018-07-17)
PROC: 5A1D70Z Performance of Urinary Filtration, Intermittent, Less than 6 Hours Per Day (ICD-10-PCS; 2018-07-20)
PROC: 0W993ZZ Drainage of Right Pleural Cavity, Percutaneous Approach (ICD-10-PCS; 2018-07-21)
DX: J90 Pleural effusion, not elsewhere classified (principal); N18.6 End stage renal disease; J18.9 Pneumonia, unspecified organism; R18.8 Other ascites; I24.9 Acute ischemic heart disease, unspecified; I12.0 Hypertensive chronic kidney disease with stage 5 chronic kidney disease or end stage renal disease; D69.6 Thrombocytopenia, unspecified; E11.51 Type 2 diabetes mellitus with diabetic peripheral angiopathy without gangrene; I25.10 Atherosclerotic heart disease of native coronary artery without angina pectoris; E87.70 Fluid overload, unspecified; E11.22 Type 2 diabetes mellitus with diabetic chronic kidney disease; H40.9 Unspecified glaucoma; N40.0 Benign prostatic hyperplasia without lower urinary tract symptoms; E11.41 Type 2 diabetes mellitus with diabetic mononeuropathy; E87.5 Hyperkalemia; D63.1 Anemia in chronic kidney disease; M19.90 Unspecified osteoarthritis, unspecified site; J45.909 Unspecified asthma, uncomplicated; I25.2 Old myocardial infarction; Z95.5 Presence of coronary angioplasty implant and graft; Z89.512 Acquired absence of left leg below knee; Z79.82 Long term (current) use of aspirin; Z79.899 Other long term (current) drug therapy; Z80.0 Family history of malignant neoplasm of digestive organs; Z99.2 Dependence on renal dialysis; Z83.3 Family history of diabetes mellitus; Z82.49 Family history of ischemic heart disease and other diseases of the circulatory system
CPT/HCPCS: 32555; 36415; 71045; 71046; 71250; 71275; 76604; 80048; 82140; 82962; 83605; 83735; 84160; 85007; 85014; 85018; 85025; 85027; 85049; 85379; 85520; 85610; 85730; 87040; 87116; 87205; 88112; 88305; 89051; 93005; 93010; 93970; 94640; 94760; 96365; G0378; A9270-GY; J1644; J1815; J1940; J1956; J2543; J3370; J7030; J7040; J7050; Q9967

== ENCOUNTER 2018-12-07 07:40 | Inpatient (IN) | payer MEDICARE ==
--- NOTE | 2018-12-07 08:10 | Emergency Department Report ---
HPI - General Chief Complaint: Dyspnea/Respdistress Time Seen by Provider: 12/07/18 07:44 - HPI HPI: Room 22 The patient is a 73-year-old male presenting with a chief complaint "respiratory distress." Per EMS the patient was at hemodialysis today when he was found to have shortness of breath and hypotension. Patient was subsequently transported to the ED. The patient states he feels "pretty good" and is uncertain why he was transported to the ED. Patient admits to a cough productive of greenish sputum for the past 2 weeks Location: [See above] Duration: [See above] Quality: [See above] Severity: [See above] Timing: [See above] Context: [See above] Modifying factors: [See above] Associated signs and symptoms: [see above] ED Past Medical Hx - Past Medical History Hx Hypertension: Yes Hx Heart Attack/AMI: Yes Hx Diabetes: Yes Hx Renal Disease: Yes (HD MWF) Hx Arthritis: Yes Hx Asthma: Yes Additional medical history: graft for dialysis on left upper arm. - Surgical History Hx Coronary Stent: Yes Additional Surgical History: left AV fistula, left BKA - Family History Family history: no significant - Social History Smoking Status: Former Smoker Substance Use Type: None - Medications Home Medications: Home Medications Medication Instructions Recorded Confirmed Last Taken Type Aspirin EC [Halfprin EC] 81 mg PO QDAY 11/06/17 07/16/18 02/21/18 History AtorvaSTATin [Lipitor] 40 mg PO DAILY 11/06/17 07/16/18 02/21/18 History Clopidogrel [Plavix] 75 mg PO QDAY 11/06/17 07/16/18 02/21/18 History Gabapentin [Neurontin] 300 mg PO TID 11/06/17 07/16/18 02/21/18 History Metoprolol [Lopressor TAB] 25 mg PO DAILY MDD BLOOD PRESSURE 11/06/17 07/16/18 02/21/18 History cloNIDine [Catapres] 0.1 mg PO DAILY 11/06/17 07/16/18 02/21/18 History Albuterol Sulfate [Albuterol 0.63% 0.63 mg IH PRN 02/21/18 07/16/18 02/21/18 History NEBS] Cinacalcet [Sensipar] 30 mg PO BID 02/21/18 07/16/18 02/21/18 History Furosemide [Lasix TAB] 80 mg PO BID 02/21/18 07/16/18 02/21/18 History Ipratropium/Albuter (Nf) 2 puff INHALATION PRN 02/21/18 07/16/18 02/21/18 History [Combivent Inhaler] Losartan Potassium [Cozaar] 50 mg PO DAILY 02/21/18 07/16/18 02/21/18 History Sod,Ammonium,Potassium Lactate 1 mg TRANSDERMA PRN 02/21/18 07/16/18 02/21/18 History [Amlactin Foot Cream] Tamsulosin HCl [Flomax] 0.4 mg PO BID 02/21/18 07/16/18 02/21/18 History Temazepam [Restoril] 30 mg PO DAILY 02/21/18 07/16/18 02/21/18 History Triamcinolone 0.1% [Kenalog 0.1% 1 applic TP TID 02/21/18 07/16/18 02/21/18 History CREAM] Dorzolamide HCl/Timolol Maleat 1 drop OP DAILY 07/16/18 07/16/18 Unknown History [Cosopt Eye Drops] ED Review of Systems ROS: Stated complaint: BREANNE Other details as noted in HPI Constitutional: no symptoms reported Eyes: denies: eye pain ENT: denies: throat pain Respiratory: denies: shortness of breath (patient denies) Cardiovascular: denies: chest pain Endocrine: no symptoms reported Gastrointestinal: denies: abdominal pain Genitourinary: denies: testicular pain Musculoskeletal: denies: back pain Neurological: denies: headache Physical Exam - Physical Exam Vital Signs: Vital Signs 12/07/18 07:48 Respiratory 14 Rate O2 Sat by Pulse 89 Oximetry Physical Exam: GENERAL: The patient is well-developed well-nourished male sitting on stretcher not appearing to be in acute distress. [] HEENT: Normocephalic. Atraumatic. Extraocular motions are intact. Patient has moist mucous membranes. NECK: Supple. Trachea midline CHEST/LUNGS: Clear to auscultation. There is no respiratory distress noted. HEART/CARDIOVASCULAR: Regular. There is no tachycardia. There is no gallop rub or murmur. ABDOMEN: Abdomen is soft, nontender. Patient has normal bowel sounds. There is no abdominal distention. SKIN: There is no rash. There is trace right lower extremity pitting edema. There is no diaphoresis. NEURO: The patient is awake, alert, and oriented. The patient is cooperative. The patient has normal speech MUSCULOSKELETAL: There is no evidence of acute injury. ED Course Vital Signs 12/07/18 07:48 Respiratory 14 Rate O2 Sat by Pulse 89 Oximetry ED Medical Decision Making - Lab Data Result diagrams: 12/07/18 08:00 12/07/18 08:00 Laboratory Tests 12/07/18 12/07/18 12/07/18 08:00 08:00 08:00 WBC 4.4 L RBC 3.49 L Hgb 11.0 L Hct 32.7 L MCV 94 MCH 31 MCHC 34 RDW 16.5 H Plt Count 122 L Lymph % (Auto) 10.9 L [place] % (Auto) 14.4 H Eos % (Auto) 4.2 Baso % (Auto) 1.5 Lymph # 0.5 L [place] # 0.6 Eos # 0.2 Baso # 0.1 Seg Neutrophils % 69.0 Seg Neutrophils # 3.0 PT 15.8 H INR 1.29 H APTT 37.1 H Sodium 138 Potassium 5.6 H Chloride 95.7 L Carbon Dioxide 28 Anion Gap 20 BUN 54 H Creatinine 8.2 H Estimated GFR 8 BUN/Creatinine Ratio 7 Glucose 106 H Lactic Acid Calcium 9.2 Magnesium 2.40 H Total Bilirubin 0.40 ALT 31 Alkaline Phosphatase 142 H Total Creatine Kinase 259 H CK-MB (CK-2) 3.9 CK-MB (CK-2) Rel Index 1.5 Troponin T 0.126 H* Total Protein 7.9 Albumin 3.6 L Albumin/Globulin Ratio 0.8 12/07/18 08:00 WBC RBC Hgb Hct MCV MCH MCHC RDW Plt Count Lymph % (Auto) [place] % (Auto) Eos % (Auto) Baso % (Auto) Lymph # [place] # Eos # Baso # Seg Neutrophils % Seg Neutrophils # PT INR APTT Sodium Potassium Chloride Carbon Dioxide Anion Gap BUN Creatinine Estimated GFR BUN/Creatinine Ratio Glucose Lactic Acid 0.90 Calcium Magnesium Total Bilirubin ALT Alkaline Phosphatase Total Creatine Kinase CK-MB (CK-2) CK-MB (CK-2) Rel Index Troponin T Total Protein Albumin Albumin/Globulin Ratio - EKG Data -: EKG Interpreted by Nd Rate: normal - EKG Data When compared to previous EKG there are: previous EKG unavailable Interpretation: nonspecific ST-T wave gustavo (biphasic T waves in leads V2, V3), other (shoulder junctional rhythm at 61 bpm.) - Radiology Data Radiology results: image reviewed (chest x-ray) interpreted by me: Chest x-ray-right lower lobe infiltrate and possible pleural effusion [facility] [address] [place] [address] XRay Report Signed Patient: MOHINDER SKINNER MR#: [id number] : 1945 Acct:[id number] Age/Sex: 73 / M ADM Date: 12/07/18 Loc: ED Attending Dr: Ordering Physician: SHAKILA ELIZABETH MD Date of Service: 12/07/18 Procedure(s): XR chest 1V ap Accession Number(s): [id number] cc: SHAKILA ELIZABETH MD Fluoro Time In Minutes: CHEST 1 VIEW INDICATION / CLINICAL INFORMATION: history of respiratory distress. COMPARISON: 07/21/2018 FINDINGS: SUPPORT DEVICES: None. HEART / MEDIASTINUM: No significant abnormality. LUNGS / PLEURA: Moderate-sized right-sided pleural effusion with pleural-parenchymal disease in the right lung base No pneumothorax. ADDITIONAL FINDINGS: No significant additional findings. IMPRESSION: Pleural-parenchymal disease in the right lung base has significantly worsened since 07/21/2018. The left lung remains clear. Signer Name: Behzad Jones MD FACR Signed: 12/07/2018 8:38 AM Workstation Name: [email or web address] T ranscribed By: MS Dictated By: Behzad Jones MD Electronically Authenticated By: Behzad Jones MD Signed Date/Time: 12/07/18837 DD/ 6 TD/TT: - Differential Diagnosis pneumonia, volume overload Critical care attestation.: If time is entered above; I have spent that time in minutes in the direct care of this critically ill patient, excluding procedure time. ED Disposition Clinical Impression: Pneumonia, ESRD (end stage renal disease) Disposition: OP ADMIT IP TO THIS HOSP Is pt being admited?: Yes Does the pt Need Aspirin: No Condition: Stable Instructions: Bacterial Pneumonia (ED) Time of Disposition: 08:53 (hospitalist paged)
[2018-12-07 08:18] LABS: Basophils # (Auto) 0.1 K/mm3 (0.0-0.1); Basophils % (Auto) 1.5 % (0.0-1.8); Eosinophils # (Auto) 0.2 K/mm3 (0.0-0.4); Eosinophils % (Auto) 4.2 % (0.0-4.3); Hematocrit 32.7 % (35.5-45.6); Lymphocytes # (Auto) 0.5 K/mm3 (1.2-5.4); Lymphocytes % (Auto) 10.9 % (13.4-35.0); Mean Corpuscular HGB Conc 34 % (32-34); Mean Corpuscular Volume 94 fl (84-94); Monocytes # (Auto) 0.6 K/mm3 (0.0-0.8); Monocytes % (Auto) 14.4 % (0.0-7.3); Platelet Count 122 K/mm3 (140-440); Red Blood Count 3.49 M/mm3 (3.65-5.03); Red Cell Distribution Width 16.5 % (13.2-15.2)
[2018-12-07] MEDS ORDERED: ROCEPHIN/NS 1 GM/50 ML 1 GM/50 ML BAG IV ONE (08:21)
[2018-12-07 08:26] LABS: INR 1.29 (0.87-1.13)
[2018-12-07 08:27] LABS: Creatine Kinase MB 3.9 ng/mL (0.0-4.0); Partial Thromboplastin Time 37.1 Sec. (24.2-36.6)
[2018-12-07 08:29] LABS: Albumin 3.6 g/dL (3.9-5); Calcium 9.2 mg/dL (8.4-10.2)
--- NOTE | 2018-12-07 08:43 | XRay Report ---
CHEST 1 VIEW INDICATION / CLINICAL INFORMATION: history of respiratory distress. COMPARISON: 07/21/2018 FINDINGS: SUPPORT DEVICES: None. HEART / MEDIASTINUM: No significant abnormality. LUNGS / PLEURA: Moderate-sized right-sided pleural effusion with pleural-parenchymal disease in the r ight lung base No pneumothorax. ADDITIONAL FINDINGS: No significant additional findings. IMPRESSION: Pleural-parenchymal disease in the right lung base has significantly worsened since 07/21/2018. The le ft lung remains clear. Signer Name: Behzad Jones MD FACR Signed: 12/07/2018 8:38 AM Workstation Name: [id number]
[2018-12-07 08:46] LABS: Chol/HDL Ratio 2.34 %
[2018-12-07] MEDS ORDERED: NACL 0.9% 500 ML 500 ML IV ONE (08:49)
[2018-12-07] MEDS ORDERED: ZITHROMAX 500 MG in NACL 0.9% 250ML 250 ML IV ONE (09:00)
[2018-12-07] MEDS ORDERED: CALCIUM GLUCONATE 1,000 MG in NACL 0.9% 100 ML IV ONE (09:18)
--- NOTE | 2018-12-07 10:13 | History and Physical Report ---
History of Present Illness Date of examination: 12/07/18 Chief complaint: SOB History of present illness: Patient was seen and examined. Follow-up on current diagnosis. No overnight events reported to me. Patient denies any chest pain, shortness breath, nausea/vomiting or severe headaches. Imaging, nursing note, chart, labs and old chart reviewed. Discussed with patient. Past Medical History: anemia, CAD, ESRD, hypertension, PVD Past Surgical History: PTCA, AV fistula, Left BKA 2013, Cardiac cath, Glaucoma eye surgery, [employer] and stenting to left leg, mutliple HD tunnel cath/fistulograms Social history: no tob/etoh/illegal drug use Family history: Mother had Pancreatic CA, DM and hypertension ROS: Constitutional: denies: fever ENT: denies: throat or neck pain Respiratory: + cough, shortness of breath Cardiovascular: denies: chest pain Endocrine: denies unexplained weight loss or gain Gastrointestinal: denies: abdominal pain, nausea Genitourinary: denies: dysuria Rectal: denies no incontinence, no bleeding, no itching, no discharge Musculoskeletal: denies swelling, myaglia, muscle weakness Skin: denies: rash Neurological: denies: headache Hematological/Lymphatic: + easy bleeding or easy bruising Allergic/Immunologic: no urticaria, no allergic rhinitis, no anaphylaxis Psych: denies sadness or hopelessness, SI/HI Medications and Allergies Allergies Allergy/AdvReac Type Severity Reaction Status Date / Time No Known Allergies Allergy Verified 11/06/17 12:21 Home Medications Medication Instructions Recorded Confirmed Last Taken Type Aspirin EC [Halfprin EC] 81 mg PO QDAY 11/06/17 07/16/18 02/21/18 History AtorvaSTATin [Lipitor] 40 mg PO DAILY 11/06/17 07/16/18 02/21/18 History Clopidogrel [Plavix] 75 mg PO QDAY 11/06/17 07/16/18 02/21/18 History Gabapentin [Neurontin] 300 mg PO TID 11/06/17 07/16/18 02/21/18 History Metoprolol [Lopressor TAB] 25 mg PO DAILY MDD BLOOD PRESSURE 11/06/17 07/16/18 02/21/18 History cloNIDine [Catapres] 0.1 mg PO DAILY 11/06/17 07/16/18 02/21/18 History Albuterol Sulfate [Albuterol 0.63% 0.63 mg IH PRN 02/21/18 07/16/18 02/21/18 History NEBS] Cinacalcet [Sensipar] 30 mg PO BID 02/21/18 07/16/18 02/21/18 History Furosemide [Lasix TAB] 80 mg PO BID 02/21/18 07/16/18 02/21/18 History Ipratropium/Albuter (Nf) 2 puff INHALATION PRN 02/21/18 07/16/18 02/21/18 History [Combivent Inhaler] Losartan Potassium [Cozaar] 50 mg PO DAILY 02/21/18 07/16/18 02/21/18 History Sod,Ammonium,Potassium Lactate 1 mg TRANSDERMA PRN 02/21/18 07/16/18 02/21/18 History [Amlactin Foot Cream] Tamsulosin HCl [Flomax] 0.4 mg PO BID 02/21/18 07/16/18 02/21/18 History Temazepam [Restoril] 30 mg PO DAILY 02/21/18 07/16/18 02/21/18 History Triamcinolone 0.1% [Kenalog 0.1% 1 applic TP TID 02/21/18 07/16/18 02/21/18 History CREAM] Dorzolamide HCl/Timolol Maleat 1 drop OP DAILY 07/16/18 07/16/18 Unknown History [Cosopt Eye Drops] Exam - Physical Exam Narrative exam: Gen: thin frial, chronically disable, moderate increase accessory muscles, a/o x 3 HEENT: NCAT, EOMI, PERRL, OP Clear Neck: supple, no adenopathy, no thyromegaly, no JVD CVS/Heart: regular tachy normal S1S2, pulses present bilaterally Chest/Lungs: diminished bs bilateral but right base is worse, Symmetrical chest expansion, good air entry bilaterally GI/Abdomen: soft, NTND, good bowel sounds, no guarding or rebound /Bladder: no suprapubic tenderness, no CVA or paraspinal tenderness Extermity/Skin: no c/c/e, right bonilla pressure ulcer MSK: FROM x 3, left BKA with prothesis Neuro: CN 2-12 grossly intact, no new focal deficits Psych: calm - Constitutional Vitals: Temp Pulse Resp BP Pulse Ox 97.6 F 61 14 96/54 100 12/07/18 08:16 12/07/18 08:16 12/07/18 08:16 12/07/18 08:16 12/07/18 08:16 Results - Labs CBC & Chem 7: 12/07/18 08:00 12/07/18 08:00 Labs: Abnormal lab results 12/07/18 12/07/18 12/07/18 Range/Units 08:00 08:00 08:00 WBC 4.4 L (4.5-11.0) K/mm3 RBC 3.49 L (3.65-5.03) M/mm3 Hgb 11.0 L (11.8-15.2) gm/dl Hct 32.7 L (35.5-45.6) % RDW 16.5 H (13.2-15.2) % Plt Count 122 L (140-440) K/mm3 Lymph % (Auto) 10.9 L (13.4-35.0) % [place] % (Auto) 14.4 H (0.0-7.3) % Lymph # 0.5 L (1.2-5.4) K/mm3 PT 15.8 H (12.2-14.9) Sec. INR 1.29 H (0.87-1.13) APTT 37.1 H (24.2-36.6) Sec. Potassium 5.6 H (3.6-5.0) mmol/L Chloride 95.7 L (98-107) mmol/L BUN 54 H (9-20) mg/dL Creatinine 8.2 H (0.8-1.5) mg/dL Glucose 106 H (75-100) mg/dL Magnesium 2.40 H (1.7-2.3) mg/dL AST 60 H (5-40) units/L Alkaline Phosphatase 142 H (35-129) units/L Total Creatine Kinase 259 H (55-170) units/L Troponin T 0.126 H* (0.00-0.029) ng/mL Albumin 3.6 L (3.9-5) g/dL LDL Cholesterol Direct 36 L (50-130) mg/dL HDL Cholesterol 32 L (40-59) mg/dL Assessment and Plan Patient is a 73 yo man with a history of Recurrent rigth lung pleural effusion requiring thoracentesis, PAD s/p left BKA, ESRD on hemodialysis MWF, DM type 2, OA, Arthritis, CAD s/p PCI with shent ~08/2017 followed by hematemesis with moderate severe erosive dudenitis/congestive gastropathy on 2018 EGD, and hypertension who presents to [facility] ED with severe, constant progressive worsen sob and hypotension during hemodialysis today. The SOB is accompanied by yellow greenish cough x 2 weeks. The is no aggravating or relieving factors except the o2 started in ED. He was just discharged from [facility] on Friday after paracentesis and he has another paracentesis or thoracentesis on Dec 18. * pCXR FINDINGS: SUPPORT DEVICES: None. HEART / MEDIASTINUM: No significant abnormality. LUNGS / PLEURA: Moderate-sized right-sided pleural effusion with pleural-parenchymal disease in the right lung base No pneumothorax. ADDITIONAL FINDINGS: No significant additional findings. IMPRESSION: Pleural-parenchymal disease in the right lung base has significantly worsened since 07/21/2018. The left lung remains clear. -SOB due to Acute Respiratory failure suspect hypoxia in nature, started O2 prior to testing currently on Venturi mask: continue o2 treatment, add nebs, consult pulmonology -Moderate right lung pleural effusion: consult Pulmonary, he followed by Dr. Wing's group -Ascites with elevated coags and transamines: consult GI -ESRD on hemodialysis: consult Nephrology -Hypotension: careful with IVs, use Midodrine but defer to Nephrology -Pancytopenia, appears chronic: consult Heme/Onc -Chronic Troponin elevation: medical management -Right bonilla pressure ulcer, suspect stage 3: consult Wound care -PAD with Left BKA and prosthesis; Medical management -Type DM: ssi, ada/renal diet -Hyperkalemia: treat with Hemodialysis Advance directives: needs clarifying as some prior records (prior Cards consult) show he is DNR. CCT 34 minutes
[2018-12-07] MEDS ORDERED: NACL 0.9% 500 ML 250 ML IV ONE (15:24)
[2018-12-07] MEDS ORDERED: NON-FORMULARY (Albuterol Sulfate [Albuterol 0.63% Nebs] 0.63 MG) IH SCH (15:30)
[2018-12-07] MEDS ORDERED: XOPENEX IH PRN ×2 (15:54→16:00)
[2018-12-07] MEDS: PLAVIX PO SCH (16:03)
[2018-12-07] MEDS: MORPHINE IV PRN (19:30)
[2018-12-07] MEDS: NEURONTIN PO SCH (19:32)
[2018-12-07] MEDS ORDERED: NACL 0.9% 100 ML IV PRN (20:48)
[2018-12-07] MEDS: SENSIPAR PO SCH (23:12)
[2018-12-08] MEDS: MORPHINE IV PRN ×3 (03:29→15:44)
[2018-12-08] MEDS: NEURONTIN PO SCH ×2 (08:07→15:42)
[2018-12-08] MEDS: SENSIPAR PO SCH (09:01)
[2018-12-08] MEDS: PLAVIX PO SCH (09:01)
--- NOTE | 2018-12-08 09:12 | Consultation ---
History of Present Illness - Reason for Consult Consult date: 12/08/18 end stage renal disease Requesting physician: EILEEN TANG - History of Present Illness This is a 73 yo M well known to our group,with history of hypertension, type 2 DM, coronary artery disease, PAD s/p L BKA, chronic systolic HF, with LVEF of 35-40% on echo on 12/05/18, end-stage renal disease on hemodialysis on a Friday schedule, who was recently hospitalized at [facility] for recurrent pleural effusion and worsening ascites, required therapeutic paracentesis > 5.8L. He presents now with severe, constant progressive worsen sob and hypotension during hemodialysis with BP as low as 80/40s despite stopping ultrafiltration and IV NS infusion. IN ER BP remained low around 80/50s IVF bolus was given. pt was admitted for further evaluation and inpatient HD with close monitoring. Renal consult is requested for management of ESRD/HD. Past History Past Medical History: anemia, CAD, ESRD, heart failure, PVD Past Surgical History: Other (PTCA, AV fistula, Left BKA 2013, Cardiac cath, Glaucoma eye surgery, [employer] and stenting to left leg, mutliple HD tunnel cath/fistulograms) Social history: denies: smoking, alcohol abuse, prescription drug abuse, IV drug use Family history: hypertension Medications and Allergies Allergies Allergy/AdvReac Type Severity Reaction Status Date / Time No Known Allergies Allergy Verified 11/06/17 12:21 Home Medications Medication Instructions Recorded Confirmed Last Taken Type Aspirin EC [Halfprin EC] 81 mg PO QDAY 11/06/17 12/07/18 02/21/18 History AtorvaSTATin [Lipitor] 40 mg PO DAILY 11/06/17 12/07/18 02/21/18 History Clopidogrel [Plavix] 75 mg PO QDAY 11/06/17 12/07/18 02/21/18 History Gabapentin [Neurontin] 300 mg PO TID 11/06/17 12/07/18 02/21/18 History Metoprolol [Lopressor TAB] 25 mg PO DAILY MDD BLOOD PRESSURE 11/06/17 12/07/18 02/21/18 History cloNIDine [Catapres] 0.1 mg PO DAILY 11/06/17 12/07/18 02/21/18 History Albuterol Sulfate [Albuterol 0.63% 0.63 mg IH PRN 02/21/18 12/07/18 02/21/18 History NEBS] Cinacalcet [Sensipar] 30 mg PO BID 02/21/18 12/07/18 02/21/18 History Furosemide [Lasix TAB] 80 mg PO BID 02/21/18 12/07/18 02/21/18 History Ipratropium/Albuter (Nf) 2 puff INHALATION PRN 02/21/18 12/07/18 02/21/18 History [Combivent Inhaler] Losartan Potassium [Cozaar] 50 mg PO DAILY 02/21/18 12/07/18 02/21/18 History Sod,Ammonium,Potassium Lactate 1 mg TRANSDERMA PRN 02/21/18 12/07/18 02/21/18 History [Amlactin Foot Cream] Tamsulosin HCl [Flomax] 0.4 mg PO BID 02/21/18 12/07/18 02/21/18 History Temazepam [Restoril] 30 mg PO DAILY 02/21/18 12/07/18 02/21/18 History Triamcinolone 0.1% [Kenalog 0.1% 1 applic TP TID 02/21/18 12/07/18 02/21/18 History CREAM] Dorzolamide HCl/Timolol Maleat 1 drop OP DAILY 07/16/18 12/07/18 Unknown History [Cosopt Eye Drops] Active Meds: Active Medications Aspirin (Halfprin Ec) 81 mg PO QDAY [facility] Last Admin: 12/08/18 09:01 Dose: 81 mg Documented by: Atorvastatin Calcium (Lipitor) 40 mg PO QHS [facility] Last Admin: 12/07/18 23:12 Dose: 40 mg Documented by: Cinacalcet (Sensipar) 30 mg PO BID [facility] Last Admin: 12/08/18 09:01 Dose: 30 mg Documented by: Clopidogrel Bisulfate (Plavix) 75 mg PO QDAY [facility] Last Admin: 12/08/18 09:01 Dose: 75 mg Documented by: Gabapentin (Neurontin) 300 mg PO TID [facility] Last Admin: 12/08/18 08:07 Dose: 300 mg Documented by: Sodium Chloride (Nacl 0.9%) 100 mls @ 999 mls/hr IV SHY PRN PRN Reason: Hypotension Levalbuterol HCl (Xopenex) 0.63 mg IH PRN PRN PRN Reason: Shortness Of Breath Midodrine (Proamatine) 10 mg PO TID@0800,1200,1600 [facility] Miscellaneous Medication (Dorzolamide Hcl/Timolol Maleat [Cosopt Eye Drops]) 1 drop OP DAILY ROBB Morphine Sulfate (Morphine) 2 mg IV Q4H PRN PRN Reason: Pain , Severe (7-10) Last Admin: 12/08/18 08:55 Dose: 2 mg Documented by: Review of Systems All systems: negative Constitutional: fatigue, weakness, malaise Exam - Vital Signs Vital signs: Vital Signs Resp Pulse Ox 14 89 12/07/18 07:48 12/07/18 07:48 - General Appearance General appearance: well-developed, appears stated age, chronically ill EENT: ATNC, PERRL, mucous membranes moist Neck: Present: neck supple Respiratory: Clear to Ascultation Heart: regular, S1S2 Gastrointestinal: Present: normoactive bowel sounds, distended Integumentary: no rash, other (no edema, L BKA) Neurologic: no focal deficit, alert and oriented x3, strength 5/5, CN 3-12 intact Psychiatric: mood/affect appropriate, cooperative Results - Lab Results 12/07/18 08:00 12/07/18 08:00 Most recent lab results Calcium 9.2 mg/dL (8.4-10.2) 12/07/18 08:00 Magnesium 2.40 mg/dL (1.7-2.3) H 12/07/18 08:00 Assessment and Plan - Patient Problems (1) ESRD (end stage renal disease) Current Visit: Yes Status: Chronic Plan to address problem: HD today for solute clearance/correction of hyperkalemia/volume control, albumin x 3 prn for SBP < 90mmHg. cont HD TTS schedule (2) Acute hyperkalemia Current Visit: No Status: Acute Plan to address problem: 2K bath with HD. cont 2g K renal diet (3) Chronic systolic (congestive) heart failure Current Visit: No Status: Acute Plan to address problem: volume control with HD. cont (4) Ascites Current Visit: Yes Status: Acute Plan to address problem: if no significant improvement of ascites seen with HD, pt will require another therapeutic paracentesis.
[2018-12-08] MEDS ORDERED: NON-FORMULARY (Dorzolamide Hcl/Timolol Maleat [Cosopt Eye Drops] 1 DROP) OP SCH (10:00)
[2018-12-08] MEDS ORDERED: HALFPRIN EC PO SCH (10:00)
[2018-12-08] MEDS ORDERED: ALBURX 25% (ALBUMIN) IV ONE (10:00)
[2018-12-08] MEDS ORDERED: NACL 0.9 (PRIMING MACHINE ONLY DIALYSIS) MC ONE (10:54)
[2018-12-08] MEDS: PROAMATINE PO SCH ×3 (11:08→15:41)
[2018-12-08] MEDS ORDERED: BENADRYL IV PRN (12:00)
[2018-12-08 12:21] LABS: Hepatitis B Surface Antigen Non-Reactive (Negative); Hepatitis C Virus Antibody Non-Reactive (NonReactive)
[2018-12-08 14:02] VITALS: BP 104/60
--- NOTE | 2018-12-08 18:30 | Discharge Summary ---
Providers - Providers Date of Admission: 12/07/18 09:16 Date of discharge: 12/08/18 Attending physician: BRENT GALLARDO 12/07/18 08:50 Consult to Physician [CONS] Urgent Comment: EBONY Consulting Provider: XU JOVEL Physician Instructions: CONSULT WAS CALLED TO /JANELL Reason For Exam: end-stage renal disease 12/07/18 15:07 Consult to Dietitian/Nutrition [CONS] Routine Physician Instructions: Reason For Exam: Reason for Consult: Malnutrition Consult to Wound/ET Nurse [CONS] Routine Reason For Exam: wound eval 12/08/18 10:37 Physical Therapy Evaluation and Treat [CONS] Routine Comment: Reason For Exam: Weakness Primary care physician: [employer] REPRESENTATIVE Hospitalization Condition: Stable Hospital course: Patient is a 73 yo man with a history of Recurrent rigth lung pleural effusion requiring thoracentesis, PAD s/p left BKA, ESRD on hemodialysis MWF, DM type 2, OA, Arthritis, CAD s/p PCI with shent ~08/2017 followed by hematemesis with moderate severe erosive dudenitis/congestive gastropathy on 2018 EGD, and hypertension who presents to [facility] ED with severe, constant progressive worsen sob and hypotension during hemodialysis today. The SOB is accompanied by yellow greenish cough x 2 weeks. The is no aggravating or relieving factors except the o2 started in ED. He was just discharged from [facility] on Friday after paracentesis and he has another paracentesis or thoracentesis on Dec 18. * pCXR FINDINGS: SUPPORT DEVICES: None. HEART / MEDIASTINUM: No significant abnormality. LUNGS / PLEURA: Moderate-sized right-sided pleural effusion with pleural-parenchymal disease in the right lung base No pneumothorax. ADDITIONAL FINDINGS: No significant additional findings. IMPRESSION: Pleural-parenchymal disease in the right lung base has significantly worsened since 07/21/2018. The left lung remains clear. -SOB due to Acute Respiratory failure suspect hypoxia in nature, started O2 prior to testing currently on Venturi mask: continue o2 treatment, add nebs, consult pulmonology Improved with HD -Moderate right lung pleural effusion: Cont HD for ultrafiltration -Ascites with elevated coags and transamines: Due for paracentesis on Dec 18 -ESRD on hemodialysis: consult Nephrology -Hypotension: Improved -Pancytopenia, appears chronic -Chronic Troponin elevation: sec to ESRD -Right bonilla pressure ulcer, suspect stage 3: consult Wound care -PAD with Left BKA and prosthesis; -Type DM: ssi, ada/renal diet -Hyperkalemia: treat with Hemodialysis--Improved Advance directives: needs clarifying as some prior records (prior Cards consult) show he is DNR. CCT 34 minutes Disposition: DC-01 TO HOME OR SELFCARE Core Measure Documentation - Palliative Care Palliative Care/ Comfort Measures: Not Applicable - Core Measures Any of the following diagnoses?: none Exam - Constitutional Vitals: Temp Pulse Resp BP Pulse Ox 97.7 F 73 18 104/60 95 12/08/18 14:00 12/08/18 14:00 12/08/18 17:00 12/08/18 14:00 12/08/18 17:00 General appearance: Present: no acute distress, well-nourished - EENT Eyes: Present: PERRL ENT: hearing intact, clear oral mucosa - Neck Neck: Present: supple, normal ROM - Respiratory Respiratory effort: normal Respiratory: bilateral: CTA - Cardiovascular Heart rate: 78 Rhythm: regular Heart Sounds: Present: S1 & S2. Absent: rub, click - Extremities Extremities: pulses symmetrical, No edema Peripheral Pulses: within normal limits - Abdominal General gastrointestinal: Present: soft, non-tender, non-distended, normal bowel sounds Male genitourinary: Present: normal - Rectal Rectal Exam: deferred - Integumentary Integumentary: Present: clear, warm, dry - Musculoskeletal Musculoskeletal: gait normal, strength equal bilaterally - Psychiatric Psychiatric: appropriate mood/affect, intact judgment & insight - Neurologic Neurologic: CNII-XII intact, moves all extremities - Allied Health Allied health notes reviewed: nursing, case management Plan Activity: no restrictions Diet: renal Follow up with: JL SILVEIRA MD [Primary Care Provider] - 7 Days ANGELA SMART MD [Staff Physician] - 7 Days
[2018-12-10] MEDS ORDERED: PROAMATINE PO SCH (10:00)
== END 2018-12-08 19:50 | disposition home or self-care (01) | DRG 314 ==
LOC: ED 07:40 → 2B-ACE 09:16
PROVIDERS: ADMIT Internal Medicine; ATTEND Internal Medicine
PROC: 5A1D70Z Performance of Urinary Filtration, Intermittent, Less than 6 Hours Per Day (ICD-10-PCS; principal; 2018-12-08)
DX: I95.9 Hypotension, unspecified (principal); J96.01 Acute respiratory failure with hypoxia; L89.893 Pressure ulcer of other site, stage 3; N18.6 End stage renal disease; J90 Pleural effusion, not elsewhere classified; R18.8 Other ascites; I13.2 Hypertensive heart and chronic kidney disease with heart failure and with stage 5 chronic kidney disease, or end stage renal disease; D61.818 Other pancytopenia; I50.22 Chronic systolic (congestive) heart failure; E87.5 Hyperkalemia; I25.2 Old myocardial infarction; E11.22 Type 2 diabetes mellitus with diabetic chronic kidney disease; M19.90 Unspecified osteoarthritis, unspecified site; J45.909 Unspecified asthma, uncomplicated; H40.9 Unspecified glaucoma; E11.51 Type 2 diabetes mellitus with diabetic peripheral angiopathy without gangrene; I25.10 Atherosclerotic heart disease of native coronary artery without angina pectoris; Z66 Do not resuscitate; Z99.2 Dependence on renal dialysis; Z95.5 Presence of coronary angioplasty implant and graft; Z89.512 Acquired absence of left leg below knee; Z87.891 Personal history of nicotine dependence; Z79.82 Long term (current) use of aspirin
CPT/HCPCS: 36415; 71045; 80053; 80061; 80074; 82140; 82550; 82553; 82962; 83735; 84484; 85025; 85610; 85730; 87040; 87116; 93005; 93010; 96361; 96365; 96366; G0378; A9270-GY; J0456; J0610; J0696; J1200; J2270; J7030; J7040; J7050; P9047

== ENCOUNTER 2019-08-21 17:47 | Inpatient (IN) | payer MEDICARE ==
[2019-08-21] MEDS ORDERED: NITROGLYCERIN 0.4 MG TAB SUBL SL ONE (17:54)
[2019-08-21 18:12] LABS: Hematocrit 35.1 % (35.5-45.6); Hemoglobin 11.2 gm/dl (11.8-15.2); Mean Corpuscular HGB Conc 32 % (32-34); Mean Corpuscular Volume 85 fl (84-94); Platelet Count 133 K/mm3 (140-440); Red Blood Count 4.14 M/mm3 (3.65-5.03)
[2019-08-21 18:17] LABS: Red Cell Distribution Width 25.1 % (13.2-15.2)
[2019-08-21 18:20] LABS: INR 1.3 (0.87-1.13)
[2019-08-21 18:21] LABS: Partial Thromboplastin Time 40.2 Sec. (24.2-36.6)
[2019-08-21] MEDS ORDERED: SODIUM CHLORIDE 0.9% 500 ML 500 ML ONE (18:25)
[2019-08-21 18:32] LABS: Calcium 9.5 mg/dL (8.4-10.2)
[2019-08-21 18:47] LABS: Total Cells Counted 100
[2019-08-21 18:48] LABS: Anisocytosis 1+; Dimorphic RBC Yes; Target Cells 1+
--- NOTE | 2019-08-21 18:49 | History and Physical Report ---
History of Present Illness Chief complaint: My chest is hurting History of present illness: 74 YO Male with HTN, CAD S/P Stent Placement currently on DAPT, NC, COPD, Asthma, OA, CVA, DM, ESRD on HD(M,W,F), Systolic CHF(EF 40%), Recurrent Pleural Effusion presents to ED for evaluation. Pt states that he experienced sudden onset of pain in his chest this morning as well shortness of breath with persistent symptom since onset. Pt states that his pain is 6-7/10, localized to the left chest, nonradiating, worsened with exertion, relieved with rest, crushing in nature. Pt acknowledges decreased exercise tolerance, Orthopnea/PND, and dypsnea on exertion. EMS notified and upon arrival the patient was found to be in distress. Pt transported to [facility]. Pt seen and evaluated in ED and found to have stable angina, as well as symptoms consistent with CHF Decompensation, and ESRD. Pt admitted to telemetry. Pt denies fever, chills, palpitations, NVD, Syncope, BRBPR, unilateral leg swelling, calf pain, hemoptysis, skin rash, BRBPR, unintentional weight loss, night sweats, productive cough, or recent ill contacts, or known exposure to COVID 19. Cardiology consulted in ED. Nephrology consulted in ED. Prior admission on 01/24/2019 reviewed. All listed medication reconciled at time of admission. Advanced care planning conducted in ED. Past History Past Medical History: acute NC, CAD, diabetes, heart failure, hypertension, other (See HPI) Past Surgical History: Other (Left BKA, cardiac cath) Social history: , lives with family. denies: smoking, alcohol abuse, prescription drug abuse Family history: diabetes, hypertension Medications and Allergies Allergies Allergy/AdvReac Type Severity Reaction Status Date / Time No Known Allergies Allergy Verified 11/06/17 12:21 Home Medications Medication Instructions Recorded Confirmed Last Taken Type Aspirin EC [Halfprin EC] 81 mg PO QDAY 11/06/17 12/07/18 02/21/18 History AtorvaSTATin [Lipitor] 40 mg PO DAILY 11/06/17 12/07/18 02/21/18 History Gabapentin 300 mg PO TID 11/06/17 12/07/18 02/21/18 History Metoprolol [Lopressor TAB] 25 mg PO DAILY MDD BLOOD PRESSURE 08/05/2512/07/18 02/21/18 History cloNIDine [Catapres] 0.1 mg PO DAILY 11/06/17 12/07/18 02/21/18 History Albuterol Sulfate [Albuterol 0.63% 0.63 mg IH PRN 02/21/18 12/07/18 02/21/18 History NEBS] Cinacalcet [Sensipar] 30 mg PO BID 02/21/18 12/07/18 02/21/18 History Furosemide [Lasix TAB] 80 mg PO BID 02/21/18 12/07/18 02/21/18 History Ipratropium/Albuter (Nf) 2 puff INHALATION PRN 02/21/18 12/07/18 02/21/18 History [Combivent Inhaler] Losartan Potassium [Cozaar] 50 mg PO DAILY 02/21/18 12/07/18 02/21/18 History Sod,Ammonium,Potassium Lactate 1 mg TRANSDERMA PRN 02/21/18 12/07/18 02/21/18 History [Amlactin Foot Cream] Tamsulosin HCl [Flomax] 0.4 mg PO BID 02/21/18 12/07/18 02/21/18 History Temazepam [Restoril] 30 mg PO DAILY 02/21/18 12/07/18 02/21/18 History Triamcinolone 0.1% [Kenalog 0.1% 1 applic TP TID 02/21/18 12/07/18 02/21/18 History CREAM] Dorzolamide HCl/Timolol Maleat 1 drop OP DAILY 07/16/18 12/07/18 Unknown History [Cosopt Eye Drops] Clopidogrel [Plavix] 75 mg PO QDAY tablet 12/08/18 Unknown Rx Dorzolamide HCl/Timolol Maleat 1 drop OP DAILY 12/08/18 Unknown Rx [Cosopt Eye Drops] Ipratropium/Albuterol Sulfate 1 ampul IH BID #60 ampul.neb 12/08/18 Unknown Rx [DUONEB *Not for PRN Use*] Nebulizer [Compact Compressor 1 each MC BID #1 each 12/08/18 Unknown Rx Nebulizer] Review of Systems Constitutional: no weight loss, no weight gain, no fever, no chills Ears, nose, mouth and throat: no ear pain, no tinnitis, no decreased hearing, no nose pain, no nasal congestion Cardiovascular: chest pain, orthopnea, shortness of breath, dyspnea on exertion, paroxysmal nocturnal dyspnea, decreased exercise tolerance, no palpitations, no rapid/irregular heart beat Respiratory: no cough, no excessive sputum, no hemoptysis Gastrointestinal: no nausea, no vomiting, no diarrhea, no constipation Genitourinary Male: no hematuria, no flank pain, no discharge, no urinary frequency, no urinary hesitancy Rectal: no pain, no incontinence, no bleeding Musculoskeletal: no neck stiffness, no neck pain, no shooting arm pain, no arm numbness/tingling Integumentary: no rash, no pruritis, no redness, no sores, no wounds Neurological: no transient paralysis, no paralysis, no weakness, no parathesias, no numbness, no tingling Psychiatric: no memory loss, no change in sleep habits, no insomnia, no hypersomnia, no change in appetite, no change in libido Endocrine: no cold intolerance, no heat intolerance, no polyphagia, no excessive thirst, no polydipsia Hematologic/Lymphatic: no easy bruising, no easy bleeding, no lymphadenopathy, no lymphedema Allergic/Immunologic: no urticaria, no allergic rhinitis, no anaphylaxis, no angioedema Exam - Constitutional Vitals: Temp Pulse Resp BP Pulse Ox 98.2 F 88 18 89/49 100 08/21/19 18:27 08/21/19 18:27 08/21/19 18:27 08/21/19 18:27 08/21/19 18:30 General appearance: Present: mild distress - EENT Eyes: Present: PERRL ENT: hearing intact, clear oral mucosa - Neck Neck: Present: supple, normal ROM - Respiratory Respiratory effort: normal Respiratory: bilateral: CTA - Cardiovascular Heart Sounds: Present: S1 & S2. Absent: rub, click - Extremities Extremities: pulses symmetrical Extremity abnormal: edema Peripheral Pulses: within normal limits - Abdominal General gastrointestinal: Present: soft, non-tender, non-distended, normal bowel sounds Male genitourinary: Present: normal - Integumentary Integumentary: Present: clear, warm, dry - Musculoskeletal Musculoskeletal: gait normal, strength equal bilaterally - Psychiatric Psychiatric: appropriate mood/affect, intact judgment & insight - Neurologic Neurologic: CNII-XII intact, moves all extremities HEART Score - HEART Score Troponin: Troponin T 0.205 ng/mL (0.00-0.029) H* 08/21/19 17:50 Results - Labs CBC & Chem 7: 08/21/19 17:50 08/21/19 17:50 Labs: Abnormal lab results 08/21/19 08/21/19 08/21/19 Range/Units 17:50 17:50 17:50 WBC 4.3 L (4.5-11.0) K/mm3 Hgb 11.2 L (11.8-15.2) gm/dl Hct 35.1 L (35.5-45.6) % MCH 27 L (28-32) pg RDW 25.1 H (13.2-15.2) % Plt Count 133 L (140-440) K/mm3 Seg Neuts % (Manual) 73.0 H (40.0-70.0) % Lymphocytes % (Manual) 10.0 L (13.4-35.0) % Monocytes % (Manual) 12.0 H (0.0-7.3) % Basophils % (Manual) 2.0 H (0.0-1.8) % Lymphocytes # (Manual) 0.4 L (1.2-5.4) K/mm3 PT 16.3 H (12.2-14.9) Sec. INR 1.30 H (0.87-1.13) APTT 40.2 H (24.2-36.6) Sec. Sodium 136 L (137-145) mmol/L Chloride 95.7 L (98-107) mmol/L Creatinine 2.6 H (0.8-1.5) mg/dL Glucose 170 H (75-100) mg/dL Troponin T 0.205 H* (0.00-0.029) ng/mL Assessment and Plan - Patient Problems (1) CHF (congestive heart failure) Current Visit: No Status: Acute Qualifiers: Heart failure type: diastolic Heart failure chronicity: acute Qualified Code(s): I50.31 - Acute diastolic (congestive) heart failure Plan to address problem: Strict I's/O, daily weight, monitor urine output every shift, diuresis with Lasix therapy, echocardiogram, afterload reduction, magnesium level, thyroid panel, submental oxygen, cardiology team consulted in ED (2) ESRD (end stage renal disease) Current Visit: No Status: Chronic Plan to address problem: Nephrology team consulted in ED, strict I/O, monitor urine output every shift, daily weight, avoid nephrotoxic agents, dialysis as per renal team. (3) Diabetes Current Visit: No Status: Acute Plan to address problem: Sliding scale insulin, consistent carbohydrate diet, Accu-Chek, hypoglycemia protocol (4) Angina at rest Current Visit: No Status: Acute Plan to address problem: Serial cardiac enzymes, EKG, telemetry, cardiology team consulted in ED, morphine, supplemental oxygen, nitro, aspirin. (5) HTN (hypertension) Current Visit: No Status: Acute Qualifiers: Hypertension type: essential hypertension Qualified Code(s): I10 - Essential (primary) hypertension (6) CAD (coronary artery disease) Current Visit: No Status: Acute Qualifiers: Associated angina: with stable angina Plan to address problem: Lipid panel, dual antiplatelet therapy, supportive care, risk factor reduction therapy. (7) DVT prophylaxis Current Visit: No Status: Acute Plan to address problem: SCD to bilateral lower extremities while in bed, patient is ambulatory. (8) Advance care planning Current Visit: No Status: Acute Plan to address problem: Patient is full code, disease education conducted, patient knowledges understanding and agreement with care plan, +30 minutes.
[2019-08-21 18:52] LABS: Chol/HDL Ratio 2.86 %
--- NOTE | 2019-08-21 18:53 | Emergency Department Report ---
ED Chest Pain HPI - General Chief Complaint: Chest Pain Stated Complaint: STEMI Time Seen by Provider: 08/21/19 17:54 Source: patient, EMS Mode of arrival: Stretcher Limitations: No Limitations - History of Present Illness Initial Comments: Patient is a 74-year-old F [place] male with a past medical history of hypertension and end-stage renal disease and coronary artery disease who is presenting with chest pain. Patient states he has approximately 4 stents and his last stent was placed last year. Patient states he has pain starting this morning he had a similar to times when he has had to have stents placed. States is a heavy sensation with some mild shortness of breath. He denies nausea vomiting diaphoresis. States the pain is at rest. Patient has end-stage renal disease went to dialysis today but it was cut short secondary to his chest pain. Patient denies cough congestion fevers or chills. Severity scale (0 -10): 4 - Related Data Home Medications Medication Instructions Recorded Confirmed Last Taken Aspirin EC [Halfprin EC] 81 mg PO QDAY 11/06/17 12/07/18 02/21/18 AtorvaSTATin [Lipitor] 40 mg PO DAILY 11/06/17 12/07/18 02/21/18 Gabapentin 300 mg PO TID 11/06/17 12/07/18 02/21/18 Metoprolol [Lopressor TAB] 25 mg PO DAILY MDD BLOOD PRESSURE 11/06/17 12/07/18 02/21/18 cloNIDine [Catapres] 0.1 mg PO DAILY 11/06/17 12/07/18 02/21/18 Albuterol Sulfate [Albuterol 0.63% 0.63 mg IH PRN 02/21/18 12/07/18 02/21/18 NEBS] Cinacalcet [Sensipar] 30 mg PO BID 02/21/18 12/07/18 02/21/18 Furosemide [Lasix TAB] 80 mg PO BID 02/21/18 12/07/18 02/21/18 Ipratropium/Albuter (Nf) 2 puff INHALATION PRN 02/21/18 12/07/18 02/21/18 [Combivent Inhaler] Losartan Potassium [Cozaar] 50 mg PO DAILY 02/21/18 12/07/18 02/21/18 Sod,Ammonium,Potassium Lactate 1 mg TRANSDERMA PRN 02/21/18 12/07/18 02/21/18 [Amlactin Foot Cream] Tamsulosin HCl [Flomax] 0.4 mg PO BID 02/21/18 12/07/18 02/21/18 Temazepam [Restoril] 30 mg PO DAILY 02/21/18 12/07/18 02/21/18 Triamcinolone 0.1% [Kenalog 0.1% 1 applic TP TID 02/21/18 12/07/18 02/21/18 CREAM] Dorzolamide HCl/Timolol Maleat 1 drop OP DAILY 07/16/18 12/07/18 Unknown [Cosopt Eye Drops] Previous Rx's Medication Instructions Recorded Last Taken Type Clopidogrel [Plavix] 75 mg PO QDAY tablet 12/08/18 Unknown Rx Dorzolamide HCl/Timolol Maleat 1 drop OP DAILY 12/08/18 Unknown Rx [Cosopt Eye Drops] Ipratropium/Albuterol Sulfate 1 ampul IH BID #60 ampul.neb 12/08/18 Unknown Rx [DUONEB *Not for PRN Use*] Nebulizer [Compact Compressor 1 each MC BID #1 each 12/08/18 Unknown Rx Nebulizer] Allergies Allergy/AdvReac Type Severity Reaction Status Date / Time No Known Allergies Allergy Verified 11/06/17 12:21 Heart Score - HEART Score History: Highly suspicious EKG: Non-specific Age: > 65 Risk factors: > 3 risk factors or hx of atherosclerotic disease Troponin: 1-3x normal limit HEART Score: 8 ED Review of Systems ROS: Stated complaint: STEMI Other details as noted in HPI Comment: All other systems reviewed and negative ED Past Medical Hx - Past Medical History Hx Hypertension: Yes Hx CVA: Yes Hx Heart Attack/AMI: Yes Hx Congestive Heart Failure: Yes Hx Diabetes: Yes Hx Renal Disease: Yes (HD MWF) Hx Arthritis: Yes Hx Asthma: Yes Hx COPD: Yes Hx HIV: No Additional medical history: graft for dialysis on left upper arm. - Surgical History Hx Coronary Stent: Yes Additional Surgical History: left AV fistula, left BKA - Social History Smoking Status: Never Smoker Substance Use Type: None - Medications Home Medications: Home Medications Medication Instructions Recorded Confirmed Last Taken Type Aspirin EC [Halfprin EC] 81 mg PO QDAY 11/06/17 12/07/18 02/21/18 History AtorvaSTATin [Lipitor] 40 mg PO DAILY 11/06/17 12/07/18 02/21/18 History Gabapentin 300 mg PO TID 11/06/17 12/07/18 02/21/18 History Metoprolol [Lopressor TAB] 25 mg PO DAILY MDD BLOOD PRESSURE 11/06/17 12/07/18 02/21/18 History cloNIDine [Catapres] 0.1 mg PO DAILY 11/06/17 12/07/18 02/21/18 History Albuterol Sulfate [Albuterol 0.63% 0.63 mg IH PRN 02/21/18 12/07/18 02/21/18 History NEBS] Cinacalcet [Sensipar] 30 mg PO BID 02/21/18 12/07/18 02/21/18 History Furosemide [Lasix TAB] 80 mg PO BID 02/21/18 12/07/18 02/21/18 History Ipratropium/Albuter (Nf) 2 puff INHALATION PRN 02/21/18 12/07/18 02/21/18 History [Combivent Inhaler] Losartan Potassium [Cozaar] 50 mg PO DAILY 02/21/18 12/07/18 02/21/18 History Sod,Ammonium,Potassium Lactate 1 mg TRANSDERMA PRN 02/21/18 12/07/18 02/21/18 History [Amlactin Foot Cream] Tamsulosin HCl [Flomax] 0.4 mg PO BID 02/21/18 12/07/18 02/21/18 History Temazepam [Restoril] 30 mg PO DAILY 02/21/18 12/07/18 02/21/18 History Triamcinolone 0.1% [Kenalog 0.1% 1 applic TP TID 02/21/18 12/07/18 02/21/18 History CREAM] Dorzolamide HCl/Timolol Maleat 1 drop OP DAILY 07/16/18 12/07/18 Unknown History [Cosopt Eye Drops] Clopidogrel [Plavix] 75 mg PO QDAY tablet 12/08/18 Unknown Rx Dorzolamide HCl/Timolol Maleat 1 drop OP DAILY 12/08/18 Unknown Rx [Cosopt Eye Drops] Ipratropium/Albuterol Sulfate 1 ampul IH BID #60 ampul.neb 12/08/18 Unknown Rx [DUONEB *Not for PRN Use*] Nebulizer [Compact Compressor 1 each MC BID #1 each 12/08/18 Unknown Rx Nebulizer] ED Physical Exam - General Limitations: No Limitations General appearance: alert, in no apparent distress - Head Head exam: Present: atraumatic, normocephalic - Eye Eye exam: Present: normal appearance, PERRL, EOMI - ENT ENT exam: Present: mucous membranes moist - Neck Neck exam: Present: normal inspection - Respiratory Respiratory exam: Present: normal lung sounds bilaterally, rales. Absent: respiratory distress, wheezes, rhonchi - Cardiovascular Cardiovascular Exam: Present: regular rate, normal rhythm, normal heart sounds. Absent: systolic murmur, diastolic murmur, rubs, gallop - GI/Abdominal GI/Abdominal exam: Present: soft, distended (from scities), normal bowel sounds. Absent: tenderness - Rectal Rectal exam: Present: deferred - Extremities Exam Extremities exam: Present: normal inspection - Back Exam Back exam: Present: normal inspection - Neurological Exam Neurological exam: Present: alert, oriented X3 - Psychiatric Psychiatric exam: Present: normal affect, normal mood - Skin Skin exam: Present: warm, dry, intact, normal color. Absent: rash ED Course Vital Signs 08/21/19 08/21/19 08/21/19 18:19 18:27 18:30 Temperature 98.2 F 98.2 F Pulse Rate 88 88 Respiratory 18 18 Rate Blood Pressure 89/49 Blood Pressure 89/49 [Right] O2 Sat by Pulse 100 100 100 Oximetry NEGRITO score - Negrito Score Age > 65: (1) Yes Aspirin use within the Past 7 Days: (1) Yes 3 or more CAD Risk Factors: (1) Yes 2 or more Angina events in past 24 hrs: (1) Yes Known CAD with more than 50% Stenosis: (0) No Elevated Cardiac Markers: (1) Yes (patient has renal insufficiency) ST Deviation Greater than 0.5mm: (0) No NEGRITO Score: 5 ED Medical Decision Making - Lab Data Result diagrams: 08/21/19 17:50 08/21/19 17:50 Lab Results 08/21/19 08/21/19 08/21/19 Range/Units 17:50 17:50 17:50 WBC 4.3 L (4.5-11.0) K/mm3 RBC 4.14 (3.65-5.03) M/mm3 Hgb 11.2 L (11.8-15.2) gm/dl Hct 35.1 L (35.5-45.6) % MCV 85 (84-94) fl MCH 27 L (28-32) pg MCHC 32 (32-34) % RDW 25.1 H (13.2-15.2) % Plt Count 133 L (140-440) K/mm3 Add Manual Diff Complete Total Counted 100 Seg Neuts % (Manual) 73.0 H (40.0-70.0) % Band Neutrophils % 0 % Lymphocytes % (Manual) 10.0 L (13.4-35.0) % Reactive Lymphs % (Man) 0 % Monocytes % (Manual) 12.0 H (0.0-7.3) % Eosinophils % (Manual) 3.0 (0.0-4.3) % Basophils % (Manual) 2.0 H (0.0-1.8) % Metamyelocytes % 0 % Myelocytes % 0 % Promyelocytes % 0 % Blast Cells % 0 % Nucleated RBC % Not Reportable Seg Neutrophils # Man 3.1 (1.8-7.7) K/mm3 Band Neutrophils # 0.0 K/mm3 Lymphocytes # (Manual) 0.4 L (1.2-5.4) K/mm3 Abs React Lymphs (Man) 0.0 K/mm3 Monocytes # (Manual) 0.5 (0.0-0.8) K/mm3 Eosinophils # (Manual) 0.1 (0.0-0.4) K/mm3 Basophils # (Manual) 0.1 (0.0-0.1) K/mm3 Metamyelocytes # 0.0 K/mm3 Myelocytes # 0.0 K/mm3 Promyelocytes # 0.0 K/mm3 Blast Cells # 0.0 K/mm3 WBC Morphology Not Reportable Hypersegmented Neuts Not Reportable Hyposegmented Neuts Not Reportable Hypogranular Neuts Not Reportable Smudge Cells Not Reportable Toxic Granulation Not Reportable Toxic Vacuolation Not Reportable Dohle Bodies Not Reportable Pelger-Huet Anomaly Not Reportable Shola Rods Not Reportable Platelet Estimate Not Reportable Clumped Platelets Not Reportable Plt Clumps, EDTA Not Reportable Large Platelets Not Reportable Giant Platelets Not Reportable Platelet Satelliting Not Reportable Plt Morphology Comment Not Reportable RBC Morphology Not Reportable Dimorphic RBCs Yes Polychromasia Not Reportable Hypochromasia Not Reportable Poikilocytosis Not Reportable Anisocytosis 1+ Microcytosis Not Reportable Macrocytosis Not Reportable Spherocytes Not Reportable Pappenheimer Bodies Not Reportable Sickle Cells Not Reportable Target Cells 1+ Tear Drop Cells Not Reportable Ovalocytes Not Reportable Helmet Cells Not Reportable [place] Bodies Not Reportable [place] Rings Not Reportable Janny Cells Not Reportable Bite Cells Not Reportable Crenated Cell Not Reportable Elliptocytes Not Reportable Acanthocytes (Spur) Not Reportable Rouleaux Not Reportable Hemoglobin C Crystals Not Reportable Schistocytes Not Reportable Malaria parasites Not Reportable Wero Bodies Not Reportable Hem Pathologist Commnt No PT 16.3 H (12.2-14.9) Sec. INR 1.30 H (0.87-1.13) APTT 40.2 H (24.2-36.6) Sec. Sodium 136 L (137-145) mmol/L Potassium 3.6 (3.6-5.0) mmol/L Chloride 95.7 L (98-107) mmol/L Carbon Dioxide 29 (22-30) mmol/L Anion Gap 15 mmol/L BUN 13 (9-20) mg/dL Creatinine 2.6 H (0.8-1.5) mg/dL Estimated GFR 29 ml/min BUN/Creatinine Ratio 5 % Glucose 170 H (75-100) mg/dL Calcium 9.5 (8.4-10.2) mg/dL Troponin T 0.205 H* (0.00-0.029) ng/mL - EKG Data -: EKG Interpreted by Ky - EKG Data 08/21/19 18:51 EKG shows sinus rhythm rate 88 the axis is leftward intervals show a prolonged QT there is a right bundle branch present patient has Q waves and the inferior leads as well as I and aVL. There is occasional PVCs. There is no evidence of ST elevation. Time of interpretation 1750 is this EKG was compared to EKG from 01/24/2019 and shows no interval change. - Radiology Data Radiology results: image reviewed (Cardiomegaly with persistent right pleural effusion) - Medical Decision Making Patient is 74-year-old F [place] male was presented with chest discomfort. He states this discomfort is similar to times when he has had to have stents placed. On arrival patient blood pressure was low however he had just left dialysis. Patient after 250 cc of normal saline and had his blood pressure rise to 95 systolic. This will continue to be monitored. Patient will be admitted to the hospitalist service for cardiology consultation. He does have a elevated heart score. Critical Care Time: Yes (30) Critical care attestation.: If time is entered above; I have spent that time in minutes in the direct care of this critically ill patient, excluding procedure time. ED Disposition Clinical Impression: Unstable angina, Acute chest pain, Ascites Disposition: OP ADMIT IP TO THIS HOSP Is pt being admited?: Yes Does the pt Need Aspirin: No (Patient received aspirin prior to arrival) Condition: Stable Instructions: Angina (ED), Chest Pain (ED) Time of Disposition: 18:56
[2019-08-21] MEDS ORDERED: ONDANSETRON 4 MG/2 ML INJ IV PRN (19:06)
[2019-08-21] MEDS ORDERED: [UNRECOGNIZED DRUG - OTHER] TRANSDERMA SCH (19:15)
--- NOTE | 2019-08-21 19:23 | XRay Report ---
CHEST 1 VIEW INDICATION / CLINICAL INFORMATION: chest pain. COMPARISON: 01/24/2019 FINDINGS: SUPPORT DEVICES: None. HEART / MEDIASTINUM: Slightly enlarged but stable. LUNGS / PLEURA: There are a few faint areas of parenchymal density consistent with minimal pneumonia. No edema or significant effusion. No pneumothorax. ADDITIONAL FINDINGS: No significant additional findings. IMPRESSION: 1 Minimal pneumonia. Signer Name: Sam Wooten MD Signed: 08/21/2019 7:19 PM Workstation Name: [id number]
[2019-08-21 20:41] LABS: Free T4 (Free Thyroxine) 0.89 ng/dL (0.76-1.46)
[2019-08-21] MEDS ORDERED: GABAPENTIN 300 MG CAP ONE (21:36)
[2019-08-21] MEDS: GABAPENTIN 300 MG CAP PO SCH (21:37)
[2019-08-21] MEDS: CINACALCET 30 MG TAB PO SCH (23:15)
[2019-08-21] MEDS: TEMAZEPAM 15 MG CAP PO SCH (23:16)
[2019-08-21] MEDS: TAMSULOSIN 0.4 MG CAP PO SCH (23:16)
[2019-08-22] MEDS ORDERED: FUROSEMIDE 20 MG/2 ML INJ IV SCH (06:00)
[2019-08-22] MEDS: FUROSEMIDE 20 MG/2 ML INJ IV SCH ×2 (06:18→18:52)
[2019-08-22] MEDS: TRIAMCINOLONE 0.1% CREAM 15 GM TP SCH ×3 (08:30→21:38)
[2019-08-22] MEDS ORDERED: DORZOLAMIDE HCL OP SCH ×2 (10:00)
[2019-08-22] MEDS ORDERED: TIMOLOL MALEAT OP SCH ×2 (10:00)
[2019-08-22] MEDS ORDERED: cloNIDine 0.1 MG TAB PO SCH (10:00)
[2019-08-22] MEDS: LOSARTAN 50 MG TAB PO SCH (10:41)
[2019-08-22] MEDS: ASPIRIN EC 81 MG TAB PO SCH (10:42)
[2019-08-22] MEDS: GABAPENTIN 300 MG CAP PO SCH ×3 (10:42→21:37)
[2019-08-22] MEDS: TAMSULOSIN 0.4 MG CAP PO SCH ×2 (10:42→21:37)
[2019-08-22] MEDS: CLOPIDOGREL 75 MG TAB PO SCH (10:42)
[2019-08-22] MEDS: METOPROLOL TARTRATE 25 MG TAB PO SCH (10:42)
[2019-08-22] MEDS: CINACALCET 30 MG TAB PO SCH ×2 (10:42→21:37)
[2019-08-22] MEDS: MORPHINE 4 MG/1 ML INJ IV PRN (10:43)
--- NOTE | 2019-08-22 13:15 | Progress Note ---
Assessment and Plan Assessment and plan: 74 YO Male with HTN, CAD S/P Stent Placement currently on DAPT, MD, COPD, Asthma, OA, CVA, DM, ESRD on HD(M,W,F), Systolic CHF(EF 40%), Recurrent Pleural Effusion presents to ED for evaluation. Pt states that he experienced sudden onset of pain in his chest this morning as well shortness of breath with p ersistent symptom since onset. Pt states that his pain is 6-7/10, localized to the left chest, nonradiating, worsened with exertion, relieved with rest, crushing in nature. Pt acknowledges decreased exercise tolerance, Orthopnea/PND, and dypsnea on exertion. EMS notified and upon arrival the patient was found to be in distress. Pt transported to [facility]. Pt seen and evaluated in ED and found to have stable angina, as well as symptoms consistent with CHF Decompensation, and ESRD. Pt admitted to telemetry. Pt denies fever, chills, palpitations, NVD, Syncope, BRBPR, unilateral leg swelling, calf pain, hemoptysis, skin rash, BRBPR, unintentional weight loss, night sweats, productive cough, or recent ill contacts, or known exposure to COVID 19. Cardiology consulted in ED. Nephrology consulted in ED. Prior admission on 01/24/2019 reviewed. All listed medication reconciled at time of admission. Advanced care planning conducted in ED. Chest x-ray reviewed shows mild infiltrate likely volume overload doubt pneumonia. Atypical chest pain likely secondary to volume overload Acute on chronic combined systolic and diastolic congestive heart failure End-stage renal disease Diabetes mellitus Hypotension Thrombocytopenia Bilateral BKA Recurrent ascites with no SBP Asthma Cardiomyopathy presumed ischemic chronic. CAD Plan Continue supportive care. Cardiology consulted CHF protocol Continue diuresis echocardiogram is pending continue afterload reduction We will schedule for ultrasound-guided paracentesis in a.m.. Continue blood pressure control Fall precaution Nephrology consult for dialysis Pain control as requested by the patient. Due to hypotension will hold blood pressure medications at this time. DVT and GI prophylaxis Plan of care discussed with the patient and nursing staff. History Interval history: Patient seen and examined today resting comfortably reports accumulating fluid in the abdomen. No fever are noted. He reports still some chest pain but improved significantly compared to admission he rates it a 2/10 at this time. Intermittent and nonradiating no exertional etiology. Hospitalist Physical - Physical exam Narrative exam: VITAL SIGNS: Reviewed. GENERAL: The patient appears normally developed, Vital signs as documented. HEAD: No signs of head trauma. EYES: Pupils are equal. Extraocular motions intact. EARS: Hearing grossly intact. MOUTH: Oropharynx is normal. NECK: No adenopathy, no JVD. CHEST: Chest with clear breath sounds bilaterally. No wheezes, rales, or rhonchi. CARDIAC: Regular rate and rhythm. S1 and S2, without murmurs, gallops, or rubs. VASCULAR: No Edema. Peripheral pulses normal and equal in all extremities. ABDOMEN: Soft, distended with positive fluid shift and no tenderness noted. No rebound or guarding, and no masses palpated. Bowel Sounds normal. MUSCULOSKELETAL: Good range of motion. Bilateral BKA. Stump is clean some excoriation but no erythema.. NEUROLOGIC EXAM: Alert and oriented x 3 No focal sensory or strength deficits. Speech normal. Follows commands. PSYCHIATRIC: Mood normal. SKIN: detial exam as documented in skin assessment - Constitutional Vitals: Temp Pulse Resp BP Pulse Ox 97.8 F 89 20 106/58 100 08/22/19 08:46 08/22/19 08:46 08/22/19 08:46 08/22/19 08:46 08/22/19 08:46 General appearance: Present: mild distress HEART Score - HEART Score EKG: Non-specific Age: > 65 Risk factors: > 3 risk factors or hx of atherosclerotic disease Troponin: Troponin T 0.174 ng/mL (0.00-0.029) H* 08/21/19 23:41 Troponin: 1-3x normal limit Results - Labs CBC & Chem 7: 08/21/19 17:50 08/21/19 17:50 Labs: Laboratory Last Values WBC 4.3 K/mm3 (4.5-11.0) L 08/21/19 17:50 RBC 4.14 M/mm3 (3.65-5.03) 08/21/19 17:50 Hgb 11.2 gm/dl (11.8-15.2) L 08/21/19 17:50 Hct 35.1 % (35.5-45.6) L 08/21/19 17:50 MCV 85 fl (84-94) 08/21/19 17:50 MCH 27 pg (28-32) L 08/21/19 17:50 MCHC 32 % (32-34) 08/21/19 17:50 RDW 25.1 % (13.2-15.2) H 08/21/19 17:50 Plt Count 133 K/mm3 (140-440) L 08/21/19 17:50 Add Manual Diff Complete 08/21/19 17:50 Total Counted 100 08/21/19 17:50 Seg Neuts % (Manual) 73.0 % (40.0-70.0) H 08/21/19 17:50 Band Neutrophils % 0 % 08/21/19 17:50 Lymphocytes % (Manual) 10.0 % (13.4-35.0) L 08/21/19 17:50 Reactive Lymphs % (Man) 0 % 08/21/19 17:50 Monocytes % (Manual) 12.0 % (0.0-7.3) H 08/21/19 17:50 Eosinophils % (Manual) 3.0 % (0.0-4.3) 08/21/19 17:50 Basophils % (Manual) 2.0 % (0.0-1.8) H 08/21/19 17:50 Metamyelocytes % 0 % 08/21/19 17:50 Myelocytes % 0 % 08/21/19 17:50 Promyelocytes % 0 % 08/21/19 17:50 Blast Cells % 0 % 08/21/19 17:50 Nucleated RBC % Not Reportable 08/21/19 17:50 Seg Neutrophils # Man 3.1 K/mm3 (1.8-7.7) 08/21/19 17:50 Band Neutrophils # 0.0 K/mm3 08/21/19 17:50 Lymphocytes # (Manual) 0.4 K/mm3 (1.2-5.4) L 08/21/19 17:50 Abs React Lymphs (Man) 0.0 K/mm3 08/21/19 17:50 Monocytes # (Manual) 0.5 K/mm3 (0.0-0.8) 08/21/19 17:50 Eosinophils # (Manual) 0.1 K/mm3 (0.0-0.4) 08/21/19 17:50 Basophils # (Manual) 0.1 K/mm3 (0.0-0.1) 08/21/19 17:50 Metamyelocytes # 0.0 K/mm3 08/21/19 17:50 Myelocytes # 0.0 K/mm3 08/21/19 17:50 Promyelocytes # 0.0 K/mm3 08/21/19 17:50 Blast Cells # 0.0 K/mm3 08/21/19 17:50 WBC Morphology Not Reportable 08/21/19 17:50 Hypersegmented Neuts Not Reportable 08/21/19 17:50 Hyposegmented Neuts Not Reportable 08/21/19 17:50 Hypogranular Neuts Not Reportable 08/21/19 17:50 Smudge Cells Not Reportable 08/21/19 17:50 Toxic Granulation Not Reportable 08/21/19 17:50 Toxic Vacuolation Not Reportable 08/21/19 17:50 Dohle Bodies Not Reportable 08/21/19 17:50 Pelger-Huet Anomaly Not Reportable 08/21/19 17:50 Shola Rods Not Reportable 08/21/19 17:50 Platelet Estimate Not Reportable 08/21/19 17:50 Clumped Platelets Not Reportable 08/21/19 17:50 Plt Clumps, EDTA Not Reportable 08/21/19 17:50 Large Platelets Not Reportable 08/21/19 17:50 Giant Platelets Not Reportable 08/21/19 17:50 Platelet Satelliting Not Reportable 08/21/19 17:50 Plt Morphology Comment Not Reportable 08/21/19 17:50 RBC Morphology Not Reportable 08/21/19 17:50 Dimorphic RBCs Yes 08/21/19 17:50 Polychromasia Not Reportable 08/21/19 17:50 Hypochromasia Not Reportable 08/21/19 17:50 Poikilocytosis Not Reportable 08/21/19 17:50 Anisocytosis 1+ 08/21/19 17:50 Microcytosis Not Reportable 08/21/19 17:50 Macrocytosis Not Reportable 08/21/19 17:50 Spherocytes Not Reportable 08/21/19 17:50 Pappenheimer Bodies Not Reportable 08/21/19 17:50 Sickle Cells Not Reportable 08/21/19 17:50 Target Cells 1+ 08/21/19 17:50 Tear Drop Cells Not Reportable 08/21/19 17:50 Ovalocytes Not Reportable 08/21/19 17:50 Helmet Cells Not Reportable 08/21/19 17:50 [place] Bodies Not Reportable 08/21/19 17:50 [place] Rings Not Reportable 08/21/19 17:50 Janny Cells Not Reportable 08/21/19 17:50 Bite Cells Not Reportable 08/21/19 17:50 Crenated Cell Not Reportable 08/21/19 17:50 Elliptocytes Not Reportable 08/21/19 17:50 Acanthocytes (Spur) Not Reportable 08/21/19 17:50 Rouleaux Not Reportable 08/21/19 17:50 Hemoglobin C Crystals Not Reportable 08/21/19 17:50 Schistocytes Not Reportable 08/21/19 17:50 Malaria parasites Not Reportable 08/21/19 17:50 Wero Bodies Not Reportable 08/21/19 17:50 Hem Pathologist Commnt No 08/21/19 17:50 PT 16.3 Sec. (12.2-14.9) H 08/21/19 17:50 INR 1.30 (0.87-1.13) H 08/21/19 17:50 APTT 40.2 Sec. (24.2-36.6) H 08/21/19 17:50 Sodium 136 mmol/L (137-145) L 08/21/19 17:50 Potassium 3.6 mmol/L (3.6-5.0) 08/21/19 17:50 Chloride 95.7 mmol/L (98-107) L 08/21/19 17:50 Carbon Dioxide 29 mmol/L (22-30) 08/21/19 17:50 Anion Gap 15 mmol/L 08/21/19 17:50 BUN 13 mg/dL (9-20) 08/21/19 17:50 Creatinine 2.6 mg/dL (0.8-1.5) H 08/21/19 17:50 Estimated GFR 29 ml/min 08/21/19 17:50 BUN/Creatinine Ratio 5 % 08/21/19 17:50 Glucose 170 mg/dL (75-100) H 08/21/19 17:50 Calcium 9.5 mg/dL (8.4-10.2) 08/21/19 17:50 Magnesium 2.20 mg/dL (1.7-2.3) 08/21/19 20:08 Troponin T 0.174 ng/mL (0.00-0.029) H* 08/21/19 23:41 Triglycerides 118 mg/dL (2-149) 08/21/19 17:50 Cholesterol 83 mg/dL (50-199) 08/21/19 17:50 LDL Cholesterol Direct 47 mg/dL (50-130) L 08/21/19 17:50 HDL Cholesterol 29 mg/dL (40-59) L 08/21/19 17:50 Cholesterol/HDL Ratio 2.86 % 08/21/19 17:50 TSH 4.710 mlU/mL (0.270-4.200) H 08/21/19 20:08 Free T4 0.89 ng/dL (0.76-1.46) 08/21/19 20:08 [place]/IV: IV Catheter Type [Left Upper INT / Saline Lock arm] Active Medications - Current Medications Current Medications: Generic Name Dose Route Start Last Admin Trade Name Freq PRN Reason Stop Dose Admin Acetaminophen 650 mg 08/21/19 19:06 Tylenol PO Q4H PRN Pain MILD(1-3)/Fever >100.5/GARCIA Aspirin 81 mg 08/22/19 10:00 08/22/19 10:42 Halfprin Ec PO 81 mg QDAY ROBB Administration Atorvastatin Calcium 40 mg 08/21/19 22:00 08/21/19 21:37 Lipitor PO 40 mg QHS ROBB Administration Cinacalcet 30 mg 08/21/19 22:00 08/22/19 10:42 Sensipar PO 30 mg BID ROBB Administration Clopidogrel Bisulfate 75 mg 08/22/19 10:00 08/22/19 10:42 Plavix PO 75 mg QDAY ROBB Administration Furosemide 40 mg 08/22/19 06:00 08/22/19 06:18 Lasix IV Not Given BID@0600,1800 ROBB Gabapentin 300 mg 08/21/19 20:00 08/22/19 10:42 Gabapentin PO 300 mg TID ROBB Administration Losartan Potassium 50 mg 08/22/19 10:00 08/22/19 10:41 Cozaar PO 50 mg DAILY ROBB Administration Metoprolol Tartrate 25 mg 08/22/19 10:00 08/22/19 10:42 Metoprolol PO 25 mg DAILY ROBB Administration Miscellaneous Medication 1 drop 05/17/20 10:00 Dorzolamide Hcl/Timolol Maleat [Cosopt Eye Drops] OP DAILY ROBB Miscellaneous Medication 1 mg 08/21/19 19:15 Sod,Ammonium,Potassium Lactate [Amlactin Foot Cream] TRANSDERMA PRN ROBB Morphine Sulfate 2 mg 08/21/19 19:06 08/22/19 10:43 Morphine IV 2 mg Q6H PRN Administration Pain , Severe (7-10) Ondansetron HCl 4 mg 08/21/19 19:06 Zofran IV Q8H PRN Nausea And Vomiting Sodium Chloride 10 ml 08/21/19 22:00 08/22/19 10:43 Sodium Chloride Flush Syringe 10 Ml IV 10 ml BID ROBB Administration Sodium Chloride 10 ml 08/21/19 19:06 Sodium Chloride Flush Syringe 10 Ml IV PRN PRN LINE FLUSH Tamsulosin HCl 0.4 mg 08/21/19 22:00 08/22/19 10:42 Flomax PO 0.4 mg BID ROBB Administration Temazepam 30 mg 08/21/19 22:00 08/21/19 23:16 Restoril PO 30 mg QHS ROBB Administration Triamcinolone Acetonide 1 applic 08/22/19 08:00 Kenalog TP TID ROBB
--- NOTE | 2019-08-22 14:06 | Consultation ---
History of Present Illness - Reason for Consult Consult date: 08/22/19 end stage renal disease Requesting physician: ERMELINDA ADAMES - History of Present Illness This is a 73 yo M well known to our group,with history of hypertension, type 2 DM, coronary artery disease, PAD s/p L BKA, chronic systolic HF, recurrent ascites, end-stage renal disease on hemodialysis on a MWF schedule, who presents now with chest pain associated with SOB, dyspnea on exertion. pain intensity was 6-7/10, localized to the left chest, nonradiating, worsened with exertion, relieved with rest. EMS notified and upon arrival the patient was found to be in distress. Pt transported to [facility]. Pt seen and evaluated in ED and found to have stable angina, as well as symptoms consistent with CHF Decompensation, and ESRD. Pt admitted to telemetry. Renal consult is requested for management of ESRD/HD. Past History Past Medical History: acute MS, CAD, diabetes, heart failure, hypertension, other (See HPI) Past Surgical History: Other (Left BKA, cardiac cath) Social history: , lives with family. denies: smoking, alcohol abuse, prescription drug abuse Family history: diabetes, hypertension Medications and Allergies Allergies Allergy/AdvReac Type Severity Reaction Status Date / Time No Known Allergies Allergy Verified 11/06/17 12:21 Home Medications Medication Instructions Recorded Confirmed Last Taken Type Aspirin EC [Halfprin EC] 81 mg PO QDAY 11/06/17 12/07/18 02/21/18 History AtorvaSTATin [Lipitor] 40 mg PO DAILY 11/06/17 12/07/18 02/21/18 History Gabapentin 300 mg PO TID 11/06/17 12/07/18 02/21/18 History Metoprolol [Lopressor TAB] 25 mg PO DAILY MDD BLOOD PRESSURE 11/06/17 12/07/18 02/21/18 History cloNIDine [Catapres] 0.1 mg PO DAILY 11/06/17 12/07/18 02/21/18 History Albuterol Sulfate [Albuterol 0.63% 0.63 mg IH PRN 02/21/18 12/07/18 02/21/18 History NEBS] Cinacalcet [Sensipar] 30 mg PO BID 02/21/18 12/07/18 02/21/18 History Furosemide [Lasix TAB] 80 mg PO BID 02/21/18 12/07/18 02/21/18 History Ipratropium/Albuter (Nf) 2 puff INHALATION PRN 02/21/18 12/07/18 02/21/18 History [Combivent Inhaler] Losartan Potassium [Cozaar] 50 mg PO DAILY 02/21/18 12/07/18 02/21/18 History Sod,Ammonium,Potassium Lactate 1 mg TRANSDERMA PRN 02/21/18 12/07/18 02/21/18 History [Amlactin Foot Cream] Tamsulosin HCl [Flomax] 0.4 mg PO BID 02/21/18 12/07/18 02/21/18 History Temazepam [Restoril] 30 mg PO DAILY 02/21/18 12/07/18 02/21/18 History Triamcinolone 0.1% [Kenalog 0.1% 1 applic TP TID 02/21/18 12/07/18 02/21/18 History CREAM] Dorzolamide HCl/Timolol Maleat 1 drop OP DAILY 07/16/18 12/07/18 Unknown History [Cosopt Eye Drops] Clopidogrel [Plavix] 75 mg PO QDAY tablet 12/08/18 Unknown Rx Dorzolamide HCl/Timolol Maleat 1 drop OP DAILY 12/08/18 Unknown Rx [Cosopt Eye Drops] Ipratropium/Albuterol Sulfate 1 ampul IH BID #60 ampul.neb 12/08/18 Unknown Rx [DUONEB *Not for PRN Use*] Nebulizer [Compact Compressor 1 each MC BID #1 each 12/08/18 Unknown Rx Nebulizer] Active Meds: Active Medications Acetaminophen (Tylenol) 650 mg PO Q4H PRN PRN Reason: Pain MILD(1-3)/Fever >100.5/GARCIA Aspirin (Halfprin Ec) 81 mg PO QDAY [facility] Last Admin: 08/22/19 10:42 Dose: 81 mg Documented by: Atorvastatin Calcium (Lipitor) 40 mg PO QHS [facility] Last Admin: 08/21/19 21:37 Dose: 40 mg Documented by: Cinacalcet (Sensipar) 30 mg PO BID [facility] Last Admin: 08/22/19 10:42 Dose: 30 mg Documented by: Clopidogrel Bisulfate (Plavix) 75 mg PO QDAY [facility] Last Admin: 08/22/19 10:42 Dose: 75 mg Documented by: Furosemide (Lasix) 40 mg IV BID@0600,1800 [facility] Last Admin: 08/22/19 06:18 Dose: Not Given Documented by: Gabapentin (Gabapentin) 300 mg PO TID [facility] Last Admin: 08/22/19 10:42 Dose: 300 mg Documented by: Losartan Potassium (Cozaar) 50 mg PO DAILY [facility] Last Admin: 08/22/19 10:41 Dose: 50 mg Documented by: Metoprolol Tartrate (Metoprolol) 25 mg PO DAILY [facility] Last Admin: 08/22/19 10:42 Dose: 25 mg Documented by: Miscellaneous Medication (Dorzolamide Hcl/Timolol Maleat [Cosopt Eye Drops]) 1 drop OP DAILY [facility] Miscellaneous Medication (Sod,Ammonium,Potassium Lactate [Amlactin Foot Cream]) 1 mg TRANSDERMA PRN [facility] Morphine Sulfate (Morphine) 2 mg IV Q6H PRN PRN Reason: Pain , Severe (7-10) Last Admin: 08/22/19 10:43 Dose: 2 mg Documented by: Ondansetron HCl (Zofran) 4 mg IV Q8H PRN PRN Reason: Nausea And Vomiting Sodium Chloride (Sodium Chloride Flush Syringe 10 Ml) 10 ml IV BID [facility] Last Admin: 08/22/19 10:43 Dose: 10 ml Documented by: Sodium Chloride (Sodium Chloride Flush Syringe 10 Ml) 10 ml IV PRN PRN PRN Reason: LINE FLUSH Tamsulosin HCl (Flomax) 0.4 mg PO BID [facility] Last Admin: 08/22/19 10:42 Dose: 0.4 mg Documented by: Temazepam (Restoril) 30 mg PO QHS [facility] Last Admin: 08/21/19 23:16 Dose: 30 mg Documented by: Triamcinolone Acetonide (Kenalog) 1 applic TP TID [facility] Review of Systems All systems: negative Constitutional: weakness Cardiovascular: chest pain, shortness of breath, dyspnea on exertion Respiratory: shortness of breath, dyspnea on exertion Exam - Vital Signs Vital signs: Vital Signs Temp Pulse Resp BP Pulse Ox 98.2 F 88 18 89/49 100 08/21/19 18:19 08/21/19 18:19 08/21/19 18:19 08/21/19 18:19 08/21/19 18:19 - General Appearance General appearance: well-developed, appears stated age, chronically ill EENT: ATNC, PERRL, mucous membranes moist Neck: Present: neck supple Respiratory: Decreased Breath Sounds Heart: regular, S1S2 Gastrointestinal: Present: distended Integumentary: no rash, other (no edema) Neurologic: no focal deficit, alert and oriented x3, strength 5/5, CN 3-12 intact Psychiatric: mood/affect appropriate, cooperative Results - Lab Results 08/21/19 17:50 08/21/19 17:50 Most recent lab results Calcium 9.5 mg/dL (8.4-10.2) 08/21/19 17:50 Magnesium 2.20 mg/dL (1.7-2.3) 08/21/19 20:08 Assessment and Plan - Patient Problems (1) ESRD (end stage renal disease) Current Visit: No Status: Chronic Plan to address problem: arranged maintenance HD on MWF schedule (2) Angina at rest Current Visit: No Status: Acute Plan to address problem: check serial cardiac enzymes, EKG, telemetry, pt given morphine, supplemental oxygen, nitro, aspirin. follow cardiology recommendations (3) Anemia in ESRD (end-stage renal disease) Current Visit: No Status: Acute Plan to address problem: Hb at target, no addiontional EPO needed (4) CAD (coronary artery disease) Current Visit: No Status: Acute Qualifiers: Associated angina: with stable angina Plan to address problem: on ASA, plavix, statin. follow cardiology recommendations (5) CHF (congestive heart failure) Current Visit: No Status: Acute Qualifiers: Heart failure type: diastolic Heart failure chronicity: acute Qualified Code(s): I50.31 - Acute diastolic (congestive) heart failure Plan to address problem: cont Na/fluid restriction, cont BB. volume management with HD
[2019-08-22] MEDS ORDERED: SODIUM CHLORIDE 0.9% 100 ML IV PRN (14:20)
--- NOTE | 2019-08-22 16:35 | Consultation ---
History of Present Illness Consult date: 08/22/19 Consult reason: chest pain History of present illness: The patient is a 74-year-old man with multiple medical problems. He has end- stage renal disease on hemodialysis, he has bilateral below-knee amputation, and he has history of multivessel coronary artery disease. 2 years ago, a cardiac catheterization at this hospital revealed widely patent mid LAD stent, and widely patent previous stents in the circumflex system. At that time, he underwent implantation of an additional drug-eluting stent to a de rod stenosis of the circumflex system outside the stented segments. He has a mild residual cardiomyopathy with left ventricular ejection fraction documented at 40 to 45%. In addition to his coronary artery disease and his mild cardiomyopathy, he has severe pulmonary hypertension with a pulmonary artery systolic pressure that was reported at 134 mmHg on a previous echocardiogram. He is admitted to the hospital at this time with nonexertional, atypical type chest pain. His EKG is markedly abnormal at baseline. There is what appears to be a junctional rhythm or sinus with marked first-degree AV block, and a right bundle branch block. His ECG is unchanged from previous tracings dating back to 2019. Chest x-ray on this presentation shows bilateral interstitial opacities and a possible right pleural effusion or right lower lobe consolidation. Past History Past Medical History: acute AL, CAD, diabetes, heart failure, hypertension, other (See HPI) Past Surgical History: PTCA, Other (Left BKA) Social history: , lives with family. denies: smoking, alcohol abuse, prescription drug abuse Family history: diabetes, hypertension Medications and Allergies Allergies Allergy/AdvReac Type Severity Reaction Status Date / Time No Known Allergies Allergy Verified 11/06/17 12:21 Home Medications Medication Instructions Recorded Confirmed Last Taken Type Aspirin EC [Halfprin EC] 81 mg PO QDAY 11/06/17 12/07/18 02/21/18 History AtorvaSTATin [Lipitor] 40 mg PO DAILY 11/06/17 12/07/18 02/21/18 History Gabapentin 300 mg PO TID 11/06/17 12/07/18 02/21/18 History Metoprolol [Lopressor TAB] 25 mg PO DAILY MDD BLOOD PRESSURE 11/06/17 12/07/18 02/21/18 History cloNIDine [Catapres] 0.1 mg PO DAILY 11/06/17 12/07/18 02/21/18 History Albuterol Sulfate [Albuterol 0.63% 0.63 mg IH PRN 02/21/18 12/07/18 02/21/18 History NEBS] Cinacalcet [Sensipar] 30 mg PO BID 02/21/18 12/07/18 02/21/18 History Furosemide [Lasix TAB] 80 mg PO BID 02/21/18 12/07/18 02/21/18 History Ipratropium/Albuter (Nf) 2 puff INHALATION PRN 02/21/18 12/07/18 02/21/18 History [Combivent Inhaler] Losartan Potassium [Cozaar] 50 mg PO DAILY 02/21/18 12/07/18 02/21/18 History Sod,Ammonium,Potassium Lactate 1 mg TRANSDERMA PRN 02/21/18 12/07/18 02/21/18 History [Amlactin Foot Cream] Tamsulosin HCl [Flomax] 0.4 mg PO BID 02/21/18 12/07/18 02/21/18 History Temazepam [Restoril] 30 mg PO DAILY 02/21/18 12/07/18 02/21/18 History Triamcinolone 0.1% [Kenalog 0.1% 1 applic TP TID 02/21/18 12/07/18 02/21/18 History CREAM] Dorzolamide HCl/Timolol Maleat 1 drop OP DAILY 07/16/18 12/07/18 Unknown History [Cosopt Eye Drops] Clopidogrel [Plavix] 75 mg PO QDAY tablet 12/08/18 Unknown Rx Dorzolamide HCl/Timolol Maleat 1 drop OP DAILY 12/08/18 Unknown Rx [Cosopt Eye Drops] Ipratropium/Albuterol Sulfate 1 ampul IH BID #60 ampul.neb 12/08/18 Unknown Rx [DUONEB *Not for PRN Use*] Nebulizer [Compact Compressor 1 each MC BID #1 each 12/08/18 Unknown Rx Nebulizer] Active Meds: Active Medications Acetaminophen (Tylenol) 650 mg PO Q4H PRN PRN Reason: Pain MILD(1-3)/Fever >100.5/GARCIA Aspirin (Halfprin Ec) 81 mg PO QDAY [facility] Last Admin: 08/22/19 10:42 Dose: 81 mg Documented by: Atorvastatin Calcium (Lipitor) 40 mg PO QHS [facility] Last Admin: 08/21/19 21:37 Dose: 40 mg Documented by: Cinacalcet (Sensipar) 30 mg PO BID [facility] Last Admin: 08/22/19 10:42 Dose: 30 mg Documented by: Clopidogrel Bisulfate (Plavix) 75 mg PO QDAY [facility] Last Admin: 08/22/19 10:42 Dose: 75 mg Documented by: Furosemide (Lasix) 40 mg IV BID@0600,1800 [facility] Last Admin: 08/22/19 06:18 Dose: Not Given Documented by: Gabapentin (Gabapentin) 300 mg PO TID [facility] Last Admin: 08/22/19 14:05 Dose: 300 mg Documented by: Sodium Chloride (Nacl 0.9%) 100 mls @ 999 mls/hr IV SHY PRN PRN Reason: Hypotension Losartan Potassium (Cozaar) 50 mg PO DAILY [facility] Last Admin: 08/22/19 10:41 Dose: 50 mg Documented by: Metoprolol Tartrate (Metoprolol) 25 mg PO DAILY [facility] Last Admin: 08/22/19 10:42 Dose: 25 mg Documented by: Miscellaneous Medication (Dorzolamide Hcl/Timolol Maleat [Cosopt Eye Drops]) 1 drop OP DAILY [facility] Miscellaneous Medication (Sod,Ammonium,Potassium Lactate [Amlactin Foot Cream]) 1 mg TRANSDERMA PRN [facility] Morphine Sulfate (Morphine) 2 mg IV Q6H PRN PRN Reason: Pain , Severe (7-10) Last Admin: 08/22/19 10:43 Dose: 2 mg Documented by: Ondansetron HCl (Zofran) 4 mg IV Q8H PRN PRN Reason: Nausea And Vomiting Sodium Chloride (Sodium Chloride Flush Syringe 10 Ml) 10 ml IV BID [facility] Last Admin: 08/22/19 10:43 Dose: 10 ml Documented by: Sodium Chloride (Sodium Chloride Flush Syringe 10 Ml) 10 ml IV PRN PRN PRN Reason: LINE FLUSH Tamsulosin HCl (Flomax) 0.4 mg PO BID [facility] Last Admin: 08/22/19 10:42 Dose: 0.4 mg Documented by: Temazepam (Restoril) 30 mg PO QHS [facility] Last Admin: 08/21/19 23:16 Dose: 30 mg Documented by: Triamcinolone Acetonide (Kenalog) 1 applic TP TID [facility] Last Admin: 08/22/19 14:06 Dose: 1 applic Documented by: Review of Systems Cardiovascular: chest pain, shortness of breath, no orthopnea, no palpitations, no rapid/irregular heart beat, no edema, no syncope, no lightheadedness Physical Examination Vital Signs Temp Pulse Resp BP Pulse Ox 98.2 F 88 18 89/49 100 08/21/19 18:19 08/21/19 18:19 08/21/19 18:19 08/21/19 18:19 08/21/19 18:19 General appearance: no acute distress HEENT: Positive: PERRL Neck: Positive: neck supple Cardiac: Positive: Irregularly Regular Lungs: Positive: Decreased Breath Sounds Neuro: Positive: Grossly Intact Abdomen: Positive: Soft Male genitourinary: Positive: deferred Skin: Positive: Clear Extremities: Present: Other (Bilateral below-knee amputation). Absent: edema Results 08/21/19 17:50 08/21/19 17:50 Coagulation 08/21/19 Range/Units 17:50 PT 16.3 H (12.2-14.9) Sec. INR 1.30 H (0.87-1.13) APTT 40.2 H (24.2-36.6) Sec. Lipids 08/21/19 Range/Units 17:50 Triglycerides 118 (2-149) mg/dL Cholesterol 83 (50-199) mg/dL HDL Cholesterol 29 L (40-59) mg/dL Cholesterol/HDL Ratio 2.86 % CBC 08/21/19 Range/Units 17:50 WBC 4.3 L (4.5-11.0) K/mm3 RBC 4.14 (3.65-5.03) M/mm3 Hgb 11.2 L (11.8-15.2) gm/dl Hct 35.1 L (35.5-45.6) % Plt Count 133 L (140-440) K/mm3 Comprehensive Metabolic Panel 08/21/19 Range/Units 17:50 Sodium 136 L (137-145) mmol/L Potassium 3.6 (3.6-5.0) mmol/L Chloride 95.7 L (98-107) mmol/L Carbon Dioxide 29 (22-30) mmol/L BUN 13 (9-20) mg/dL Creatinine 2.6 H (0.8-1.5) mg/dL Glucose 170 H (75-100) mg/dL Calcium 9.5 (8.4-10.2) mg/dL EKG interpretations - Telemetry EKG Rhythm: Sinus Rhythm (Sinus or junctional rhythm with right bundle branch block no change from prior ECGs) Assessment and Plan - Patient Problems (1) Coronary artery disease Current Visit: Yes Status: Acute Plan to address problem: The patient presents with atypical chest pain. We will optimize medical therapy and risk factor modification for his underlying coronary artery disease. Further cardiac evaluation will depend on clinical course. (2) Abnormal chest x-ray Current Visit: Yes Status: Acute Plan to address problem: Patient's chest x-ray revealed bilateral interstitial pulmonary opacities, with a right pleural effusion or consolidation in the right lower lobe. While there is a possibility of interstitial edema or mild fluid overload, consideration should be given to atypical pneumonia such as coronavirus 19 infection.
[2019-08-22] MEDS: ACETAMINOPHEN 325 MG TAB PO PRN ×2 (17:01→21:37)
[2019-08-22] MEDS: TEMAZEPAM 15 MG CAP PO SCH (21:37)
[2019-08-23] MEDS: ACETAMINOPHEN 325 MG TAB PO PRN (06:21)
[2019-08-23] MEDS: FUROSEMIDE 20 MG/2 ML INJ IV SCH ×2 (06:43→18:13)
[2019-08-23] MEDS ORDERED: SODIUM CHLORIDE 0.9% 100 ML IV PRN (09:32)
[2019-08-23] MEDS: CINACALCET 30 MG TAB PO SCH (10:37)
[2019-08-23] MEDS: ASPIRIN EC 81 MG TAB PO SCH (10:37)
[2019-08-23] MEDS: TAMSULOSIN 0.4 MG CAP PO SCH (10:38)
[2019-08-23] MEDS: GABAPENTIN 300 MG CAP PO SCH ×2 (10:38→13:33)
[2019-08-23] MEDS: CLOPIDOGREL 75 MG TAB PO SCH (10:38)
[2019-08-23] MEDS: MORPHINE 4 MG/1 ML INJ IV PRN (10:39)
[2019-08-23] MEDS: LOSARTAN 50 MG TAB PO SCH (10:50)
[2019-08-23] MEDS: TRIAMCINOLONE 0.1% CREAM 15 GM TP SCH ×2 (10:50→14:16)
[2019-08-23] MEDS: METOPROLOL TARTRATE 25 MG TAB PO SCH (10:50)
--- NOTE | 2019-08-23 10:58 | Progress Note ---
Assessment and Plan - Patient Problems (1) Acute chest pain Status: Acute Plan to address problem: Pain appears to be atypical//musculoskeletal. Cardiology input appreciated (2) Hypertensive chronic kidney disease with stage 5 chronic kidney disease or end stage renal disease Status: Acute Plan to address problem: blood pressure is controlled. (3) Type 2 diabetes mellitus with diabetic chronic kidney disease Status: Acute Plan to address problem: Blood sugar control by primary attending. (4) ESRD (end stage renal disease) on dialysis Status: Chronic Plan to address problem: Hemodialysis today and then continue per schedule. Subjective Date of service: 08/23/19 Principal diagnosis: end-stage renal disease, atypical chest pain Interval history: patient seen lying in bed. He feels better now. He believes the chest pain was from his attempts to help with this transfer from stretcher to his bed on getting back from dialysis on Friday Objective - Exam Narrative Exam: elderly -[place] male lying in bed in no acute distress HEENT: Normocephalic atraumatic, pupils equal round reactive to light Normal oropharynx, Neck: Supple, no venous distention, no goiter CVS: S1S2 RRR No murmur, No rub or gallop Lungs: Clear to auscultation, no use of accessory muscles of respiration Abdomen: Full, soft, nontender, no organomegaly no bruit, bowel sounds are present Extremities: mild edema, bilateral below-knee amputations no cyanosis or clubbing Urinary: Deferred Musculo-skeletal: No joint deformities or swelling Neuro: Awake, alert, no focal deficits - Vital Signs Vital signs: Vital Signs - 12hr 08/22/19 08/23/19 08/23/19 23:59 03:54 06:21 Temperature 98 F 98.0 F Pulse Rate 85 81 Respiratory 18 18 20 Rate Blood Pressure 85/47 Blood Pressure 100/68 [Right] O2 Sat by Pulse 97 Oximetry 08/23/19 08/23/19 08/23/19 07:33 08:00 10:50 Temperature 97.6 F 97.6 F Pulse Rate 88 102 H 77 Respiratory 20 20 Rate Blood Pressure 80/41 93/53 Blood Pressure 80/41 [Right] O2 Sat by Pulse 91 96 Oximetry - Lab 08/21/19 17:50 08/21/19 17:50 Most recent lab results Calcium 9.5 mg/dL (8.4-10.2) 08/21/19 17:50 Magnesium 2.20 mg/dL (1.7-2.3) 08/21/19 20:08 Medications & Allergies - Medications Allergies/Adverse Reactions: Allergies No Known Allergies Allergy (Verified 11/06/17 12:21) Home Medications: Home Medications Medication Instructions Recorded Confirmed Last Taken Type Aspirin EC [Halfprin EC] 81 mg PO QDAY 11/06/17 12/07/18 02/21/18 History AtorvaSTATin [Lipitor] 40 mg PO DAILY 11/06/17 12/07/18 02/21/18 History Gabapentin 300 mg PO TID 11/06/17 12/07/18 02/21/18 History Metoprolol [Lopressor TAB] 25 mg PO DAILY MDD BLOOD PRESSURE 11/06/17 12/07/18 02/21/18 History cloNIDine [Catapres] 0.1 mg PO DAILY 11/06/17 12/07/18 02/21/18 History Albuterol Sulfate [Albuterol 0.63% 0.63 mg IH PRN 02/21/18 12/07/18 02/21/18 History NEBS] Cinacalcet [Sensipar] 30 mg PO BID 02/21/18 12/07/18 02/21/18 History Furosemide [Lasix TAB] 80 mg PO BID 02/21/18 12/07/18 02/21/18 History Ipratropium/Albuter (Nf) 2 puff INHALATION PRN 02/21/18 12/07/18 02/21/18 History [Combivent Inhaler] Losartan Potassium [Cozaar] 50 mg PO DAILY 02/21/18 12/07/18 02/21/18 History Sod,Ammonium,Potassium Lactate 1 mg TRANSDERMA PRN 02/21/18 12/07/18 02/21/18 History [Amlactin Foot Cream] Tamsulosin HCl [Flomax] 0.4 mg PO BID 02/21/18 12/07/18 02/21/18 History Temazepam [Restoril] 30 mg PO DAILY 02/21/18 12/07/18 02/21/18 History Triamcinolone 0.1% [Kenalog 0.1% 1 applic TP TID 02/21/18 12/07/18 02/21/18 History CREAM] Dorzolamide HCl/Timolol Maleat 1 drop OP DAILY 07/16/18 12/07/18 Unknown History [Cosopt Eye Drops] Clopidogrel [Plavix] 75 mg PO QDAY tablet 12/08/18 Unknown Rx Dorzolamide HCl/Timolol Maleat 1 drop OP DAILY 12/08/18 Unknown Rx [Cosopt Eye Drops] Ipratropium/Albuterol Sulfate 1 ampul IH BID #60 ampul.neb 12/08/18 Unknown Rx [DUONEB *Not for PRN Use*] Nebulizer [Compact Compressor 1 each MC BID #1 each 12/08/18 Unknown Rx Nebulizer] Active Medications: Generic Name Dose Route Start Last Admin Trade Name Freq PRN Reason Stop Dose Admin Acetaminophen 650 mg 08/21/19 19:06 08/23/19 06:21 Tylenol PO 650 mg Q4H PRN Administration Pain MILD(1-3)/Fever >100.5/GARCIA Aspirin 81 mg 08/22/19 10:00 08/23/19 10:37 Halfprin Ec PO 81 mg QDAY [facility] Administration Atorvastatin Calcium 40 mg 08/21/19 22:00 08/22/19 21:37 Lipitor PO 40 mg QHS [facility] Administration Cinacalcet 30 mg 08/21/19 22:00 08/23/19 10:37 Sensipar PO 30 mg BID [facility] Administration Clopidogrel Bisulfate 75 mg 08/22/19 10:00 08/23/19 10:38 Plavix PO 75 mg QDAY [facility] Administration Furosemide 40 mg 08/22/19 06:00 08/23/19 06:43 Lasix IV Not Given BID@0600,1800 [facility] Gabapentin 300 mg 08/21/19 20:00 08/23/19 10:38 Gabapentin PO 300 mg TID [facility] Administration Sodium Chloride 100 mls @ 999 mls/hr 08/23/19 09:32 Nacl 0.9% IV SHY PRN Hypotension Losartan Potassium 50 mg 08/22/19 10:00 08/23/19 10:50 Cozaar PO Not Given DAILY [facility] Metoprolol Tartrate 25 mg 08/22/19 10:00 08/23/19 10:50 Metoprolol PO Not Given DAILY [facility] Morphine Sulfate 2 mg 08/21/19 19:06 08/23/19 10:39 Morphine IV 2 mg Q6H PRN Administration Pain , Severe (7-10) Ondansetron HCl 4 mg 08/21/19 19:06 Zofran IV Q8H PRN Nausea And Vomiting Sodium Chloride 10 ml 08/21/19 22:00 08/23/19 10:40 Sodium Chloride Flush Syringe 10 Ml IV 10 ml BID [facility] Administration Sodium Chloride 10 ml 08/21/19 19:06 Sodium Chloride Flush Syringe 10 Ml IV PRN PRN LINE FLUSH Tamsulosin HCl 0.4 mg 08/21/19 22:00 08/23/19 10:38 Flomax PO 0.4 mg BID [facility] Administration Temazepam 30 mg 08/21/19 22:00 08/22/19 21:37 Restoril PO 30 mg QHS [facility] Administration Triamcinolone Acetonide 1 applic 08/22/19 08:00 08/23/19 10:50 Kenalog TP 1 applic TID [facility] Administration
--- NOTE | 2019-08-23 11:27 | Progress Note ---
Assessment and Plan Atypical chest pain Abnormal CXR pending COIVD-19 results Dilated Cardiomyopathy EF 25-30% by echo this admission. EF 40-45% on echocardiogram 02/2018. Cor-pulmonale ESRD on dialysis Hx of CAD s/p PCI 07/2017 Outpatient MPI 01/2018 reports no ischemia Chronic elevated troponin Hypertension PVD s/p left BKA Recommendations: Hemodialysis for fluid management. Continue medical therapy for coronary artery disease. Subjective Date of service: 08/23/19 Principal diagnosis: end-stage renal disease, atypical chest pain Interval history: No cardiac events reported Objective Vital Signs Temp Pulse Resp BP BP Pulse Ox 08/23/19 10:50 77 93/53 08/23/19 08:00 97.6 F 102 H 20 80/41 96 08/23/19 07:33 97.6 F 88 20 80/41 91 08/23/19 06:21 20 08/23/19 03:54 98.0 F 81 18 85/47 97 08/22/19 23:59 98 F 85 18 100/68 08/22/19 21:37 20 08/22/19 20:00 85 08/22/19 19:28 98.0 F 81 20 85/45 100 08/22/19 16:58 98.4 F 86 19 99/40 99 08/22/19 12:00 90 - Physical Examination Cardiac: Positive: Reg Rate and Rhythm Extremities: Present: Other (Bilateral below-knee amputation)
--- NOTE | 2019-08-23 14:10 | Discharge Summary ---
Providers - Providers Date of Admission: 08/21/19 19:06 Attending physician: ERMELINDA ADAMES MD 08/21/19 Consult to Cardiac Rehabilitation [CONS] Routine Reason For Exam: Phase I 08/21/19 18:59 Consult to Physician [CONS] Routine Comment: Consulting Provider: ANGELA SMART Physician Instructions: Reason For Exam: ESRD 08/21/19 19:06 Consult to Physician [CONS] Routine Comment: Consulting Provider: BIN LIZ Physician Instructions: Reason For Exam: chf/angina 08/22/19 07:03 Consult to Wound/ET Nurse [CONS] Routine Reason For Exam: wound eval Primary care physician: NAHUN JULES Hospitalization Reason for admission: CHEST PAIN Condition: Stable Hospital course: 74 YO Male with HTN, CAD S/P Stent Placement currently on DAPT, [place], COPD, Asthma, OA, CVA, DM, ESRD on HD(M,W,F), Systolic CHF(EF 40%), Recurrent Pleural Effusion presents to ED for evaluation. Pt states that he experienced sudden onset of pain in his chest this morning as well shortness of breath with persistent symptom since onset. Pt states that his pain is 6-7/10, localized to the left chest, nonradiating, worsened with exertion, relieved with rest, crushing in nature. Pt acknowledges decreased exercise tolerance, Orthopnea/PND, and dypsnea on exertion. EMS notified and upon arrival the patient was found to be in distress. Pt transported to [facility]. Pt seen and evaluated in ED and found to have stable angina, as well as symptoms consistent with CHF Decompensation, and ESRD. Pt admitted to telemetry. Pt denies fever, chills, palpitations, NVD, Syncope, BRBPR, unilateral leg swelling, calf pain, hemoptysis, skin rash, BRBPR, Advanced care planning conducted in ED. Chest x-ray reviewed shows mild infiltrate likely volume overload doubt pneumonia. No fever or worsening shortness. Other collaborating information obtained by websphere commerce developer as the patient tested positive for COVID a few weeks ago. A retest was ordered and is still positive. His is also suffering from severe cancer as a result diseased bilateral lower extremity BKA cannot be discharged home he is from a [facility]. Staff has been notified about possible exposure. The patient also was scheduled for paracentesis although his respiratory status is much improved based on his on admission that he is breathing much better and never had any shortness of breath. He is dialyzed today and will return to the [facility] facility. For planned paracentesis I discussed with the nursing staff and also with case management to arrange for outpatient paracentesis and 7 days prior to this event patient can be taken off Plavix. This is all been submitted explained to the patient. Patient was also evaluated for cardiology with recommendation to continue current management. And follow-up outpatient. Atypical chest pain likely secondary to volume overload Acute on chronic combined systolic and diastolic congestive heart failure Type II [place] with chronically elevated troponin End-stage renal disease COVID 19 nOW IN RECOVERY Diabetes mellitus Hypotension Thrombocytopenia Bilateral BKA Recurrent ascites with no SBP Asthma Cardiomyopathy presumed ischemic chronic. CAD Disposition: DC/TX-03 [facility] Time spent for discharge: 35 MINS Core Measure Documentation - Palliative Care Palliative Care/ Comfort Measures: Not Applicable - Core Measures Any of the following diagnoses?: none Exam - Physical Exam Narrative exam: VITAL SIGNS: Reviewed. GENERAL: The patient appears normally developed, Vital signs as documented. HEAD: No signs of head trauma. EYES: Pupils are equal. Extraocular motions intact. EARS: Hearing grossly intact. MOUTH: Oropharynx is normal. NECK: No adenopathy, no JVD. CHEST: Chest with clear breath sounds bilaterally. No wheezes, rales, or rhonchi. CARDIAC: Regular rate and rhythm. S1 and S2, without murmurs, gallops, or rubs. VASCULAR: No Edema. Peripheral pulses normal and equal in all extremities. ABDOMEN: Soft, distended with positive fluid shift and no tenderness noted. No rebound or guarding, and no masses palpated. Bowel Sounds normal. MUSCULOSKELETAL: Good range of motion. Bilateral BKA. Stump is clean some excoriation but no erythema.. NEUROLOGIC EXAM: Alert and oriented x 3 No focal sensory or strength d eficits. Speech normal. Follows commands. PSYCHIATRIC: Mood normal. SKIN: detial exam as documented in skin assessment - Constitutional Vitals: Temp Pulse Resp BP Pulse Ox 97.1 F L 94 H 20 95/56 98 08/23/19 12:00 08/23/19 12:08/23/19 12:00 08/23/19 12:08/23/19 12:58 Plan Activity: advance as tolerated, fall precautions Diet: low fat, diabetic, renal Special Instructions: record daily weights, record daily BP diary Additional Instructions: PARACENTESIS OUTPATIENT ARRANGE WITH PCP Follow up with: NAHUN JULES MD [Primary Care Provider] - 7 Days XU JOVEL MD [Staff Physician] - 7 Days
[2019-08-23 17:00] VITALS: BP 97/54
[2019-08-23 17:32] LABS: Hepatitis B Surface Antigen Non-Reactive (Negative); Hepatitis C Virus Antibody Non-Reactive (NonReactive)
== END 2019-08-23 19:51 | DRG 280 ==
LOC: ED 17:47 → 4A 19:06
PROVIDERS: ADMIT Internal Medicine; ATTEND Internal Medicine
DX: I13.2 Hypertensive heart and chronic kidney disease with heart failure and with stage 5 chronic kidney disease, or end stage renal disease (principal); N18.6 End stage renal disease; I21.A1 Myocardial infarction type 2; I50.43 Acute on chronic combined systolic (congestive) and diastolic (congestive) heart failure; U07.1 COVID-19; J12.89 Other viral pneumonia; R18.8 Other ascites; I25.118 Atherosclerotic heart disease of native coronary artery with other forms of angina pectoris; J44.9 Chronic obstructive pulmonary disease, unspecified; M19.90 Unspecified osteoarthritis, unspecified site; E11.22 Type 2 diabetes mellitus with diabetic chronic kidney disease; I25.5 Ischemic cardiomyopathy; I25.10 Atherosclerotic heart disease of native coronary artery without angina pectoris; E11.51 Type 2 diabetes mellitus with diabetic peripheral angiopathy without gangrene; I95.9 Hypotension, unspecified; D69.6 Thrombocytopenia, unspecified; Z86.73 Personal history of transient ischemic attack (TIA), and cerebral infarction without residual deficits; Z95.5 Presence of coronary angioplasty implant and graft; Z99.2 Dependence on renal dialysis; Z89.512 Acquired absence of left leg below knee; Z89.511 Acquired absence of right leg below knee; Z82.49 Family history of ischemic heart disease and other diseases of the circulatory system; Z83.3 Family history of diabetes mellitus; Z79.82 Long term (current) use of aspirin; Z79.899 Other long term (current) drug therapy
CPT/HCPCS: 36415; 71045; 80048; 80061; 80074; 82962; 83735; 84439; 84443; 84484; 85007; 85025; 85610; 85730; 93005; 93306; G0378; A9270-GY; J1940; J2270; J7040; U0003

== ENCOUNTER 2019-08-25 11:26 | Inpatient (IN) | payer MEDICARE ==
--- NOTE | 2019-08-25 12:40 | Emergency Department Report ---
HPI - General Chief Complaint: Dyspnea/Respdistress PUI?: Yes Time Seen by Provider: 08/25/19 12:12 - HPI HPI: Room 8 The patient is a 74-year-old male present with a chief complaint of abdominal ascites. The patient was discharged from this hospital 2 days ago after being evaluated for chest pain. The patient was sent back to a intermediate facility where he was supposed to be scheduled for paracentesis as an outpatien t. The patient states after discharge she never received a paracentesis and does not know why. The patient was sent back to the ED because of shortness of breath secondary to his large ascites. Patient states it feels like his ascites is causing his shortness of breath as he is been suffering from from this for some time. Patient states his last paracentesis occurred approximately 6 months ago. Patient denies cough or fever. Of note the patient tested positive for COVID-19 2 days ago. ED Past Medical Hx - Past Medical History Previous Medical History?: Yes Hx Hypertension: Yes Hx CVA: Yes Hx Heart Attack/AMI: Yes Hx Congestive Heart Failure: Yes Hx Diabetes: Yes Hx Renal Disease: Yes (HD --) Hx Arthritis: Yes Hx Asthma: Yes Hx COPD: Yes Additional medical history: graft for dialysis on left upper arm. - Surgical History Past Surgical History?: Yes Hx Coronary Stent: Yes Additional Surgical History: left AV fistula, left BKA, right BKA - Family History Family history: no significant - Social History Smoking Status: Never Smoker Substance Use Type: None - Medications Home Medications: Home Medications Medication Instructions Recorded Confirmed Last Taken Type Aspirin EC [Halfprin EC] 81 mg PO QDAY 11/06/17 08/25/19 02/21/18 History AtorvaSTATin [Lipitor] 40 mg PO DAILY 11/06/17 08/25/19 02/21/18 History Gabapentin 300 mg PO TID 11/06/17 08/25/19 02/21/18 History Metoprolol [Lopressor TAB] 25 mg PO DAILY MDD BLOOD PRESSURE 11/06/17 08/25/19 02/21/18 History cloNIDine [Catapres] 0.1 mg PO DAILY 11/06/17 08/25/19 02/21/18 History Cinacalcet [Sensipar] 30 mg PO BID 02/21/18 08/25/19 02/21/18 History Furosemide [Lasix TAB] 80 mg PO BID 02/21/18 08/25/19 02/21/18 History Tamsulosin HCl [Flomax] 0.4 mg PO BID 02/21/18 08/25/19 02/21/18 History Temazepam [Restoril] 30 mg PO DAILY 02/21/18 08/25/19 02/21/18 History Triamcinolone 0.1% [Kenalog 0.1% 1 applic TP TID 02/21/18 08/25/19 02/21/18 History CREAM] Dorzolamide HCl/Timolol Maleat 1 drop OP DAILY 07/16/18 08/25/19 Unknown History [Cosopt Eye Drops] Clopidogrel [Plavix] 75 mg PO QDAY tablet 12/08/18 08/25/19 Unknown Rx Amlactin Foot Cream 1 unit TP PRN PRN 08/25/19 08/25/19 Unknown History Fluconazole [Diflucan TAB] 200 mg PO QDAY 08/25/19 08/25/19 Unknown History Ipratropium/Albuterol Sulfate 4 gm IH PRN PRN 08/25/19 08/25/19 Unknown History [Combivent Respimat Inhal [place]] Lispro Insulin [HumaLOG] See Protocol SQ AC 08/25/19 08/25/19 Unknown History Sacubitril/Valsartan [Entresto 24 1 each PO BID 08/25/19 08/25/19 Unknown History - 26 mg] bisacodyL [Dulcolax] 10 mg PO DAILY PRN 08/25/19 08/25/19 Unknown History ED Review of Systems ROS: Stated complaint: DIFFICULTY BREATHING Other details as noted in HPI Constitutional: denies: fever Respiratory: shortness of breath. denies: cough Gastrointestinal: other (Ascites) Physical Exam - Physical Exam Vital Signs: Vital Signs 08/25/19 11:30 Temperature 98.4 F Pulse Rate 87 Respiratory 16 Rate Blood Pressure 120/55 [Right] O2 Sat by Pulse 100 Oximetry Physical Exam: GENERAL: The patient is well-developed well-nourished []. [] HEENT: Normocephalic. Atraumatic. Extraocular motions are intact. Patient has moist mucous membranes. NECK: Supple. Trachea midline CHEST/LUNGS: There is no respiratory distress noted. HEART/CARDIOVASCULAR: Regular. There is no tachycardia. There is no gallop rub or murmur. ABDOMEN: Large ascites. No rebound or guarding SKIN: There is no rash. There is no edema. There is no diaphoresis. NEURO: The patient is awake, alert, and oriented. The patient is cooperative. The patient has normal speech MUSCULOSKELETAL: There is no evidence of acute injury. ED Course Vital Signs 08/25/19 11:30 Temperature 98.4 F Pulse Rate 87 Respiratory 16 Rate Blood Pressure 120/55 [Right] O2 Sat by Pulse 100 Oximetry ED Medical Decision Making - Lab Data Result diagrams: 08/25/19 13:46 08/25/19 13:46 Laboratory Tests 08/25/19 08/25/19 08/25/19 13:46 13:46 13:46 WBC 4.6 RBC 3.24 L Hgb 8.7 L Hct 27.1 L MCV 84 MCH 27 L MCHC 32 RDW 24.2 H Plt Count 162 Lymph % (Auto) 12.3 L [place] % (Auto) 15.1 H Eos % (Auto) 3.0 Baso % (Auto) 1.6 Lymph # 0.6 L [place] # 0.7 Eos # 0.1 Baso # 0.1 Seg Neutrophils % 68.0 Seg Neutrophils # 3.1 PT 15.9 H INR 1.26 H APTT 38.8 H Sodium 135 L Potassium 4.1 Chloride 93.7 L Carbon Dioxide 30 Anion Gap 15 BUN 26 H Creatinine 3.5 H Estimated GFR 21 BUN/Creatinine Ratio 7 Glucose 125 H Calcium 9.0 Total Bilirubin 0.30 AST 27 ALT 20 Alkaline Phosphatase 169 H Total Protein 8.2 Albumin 3.2 L Albumin/Globulin Ratio 0.6 - Radiology Data Radiology results: report reviewed (Chest x-ray), image reviewed (Chest x-ray) interpreted by me: Chest x-ray- no pneumothorax [facility] [address] [place] [address] XRay Report Signed Patient: MOHINDER SKINNER MR#: [id number] : 1945 Acct:[id number] Age/Sex: 74 / M ADM Date: 08/25/19 Loc: ED Attending Dr: Ordering Physician: SHAKILA ELIZABETH MD Date of Service: 08/25/19 Procedure(s): XR chest 1V ap Accession Number(s): [id number] cc: SHAKILA ELIZABETH MD Fluoro Time In Minutes: CHEST 1 VIEW 08/25/2019 12:26 PM INDICATION / CLINICAL INFORMATION: Shortness of breath. COMPARISON: Chest x-ray on 08/21/2019. FINDINGS: SUPPORT DEVICES: None. HEART / MEDIASTINUM: No significant abnormality. LUNGS / PLEURA: Stable small right pleural effusion and right basilar atelectasis. No pneumothorax. ADDITIONAL FINDINGS: No significant additional findings. IMPRESSION: 1. Stable small right pleural effusion and right basilar atelectasis. Signer Name: Juan A Oneill MD Signed: 08/25/2019 1:27 PM Workstation Name: [id number] Transcribed By: MATHEUS Dictated By: Juan A Oneill MD Electronically Authenticated By: Juan A Oneill MD Signed Date/Time: 08/25/191326 DD/ 26 TD/TT: - Medical Decision Making Informed by ultrasound that there is not a radiologist on site available to perform ultrasound-guided paracentesis at this time. We will be available t omorrow. Will admit the patient to the hospital overnight for observation - Differential Diagnosis Ascites Critical care attestation.: If time is entered above; I have spent that time in minutes in the direct care of this critically ill patient, excluding procedure time. ED Disposition Clinical Impression: Ascites, COVID-19 virus detected Disposition: OP ADMIT IP TO THIS HOSP Is pt being admited?: Yes Does the pt Need Aspirin: No Condition: Stable Referrals: PRIMARY CARE, [Primary Care Provider] - 3-5 Days Time of Disposition: 15:08 (Hospitalist notified (Dr Rodriguez))
--- NOTE | 2019-08-25 13:32 | XRay Report ---
CHEST 1 VIEW 08/25/2019 12:26 PM INDICATION / CLINICAL INFORMATION: Shortness of breath. COMPARISON: Chest x-ray on 08/21/2019. FINDINGS: SUPPORT DEVICES: None. HEART / MEDIASTINUM: No significant abnormality. LUNGS / PLEURA: Stable small right pleural effusion and right basilar atelectasis. No pneumothorax. ADDITIONAL FINDINGS: No significant additional findings. IMPRESSION: 1. Stable small right pleural effusion and right basilar atelectasis. Signer Name: Juan A Oneill MD Signed: 08/25/2019 1:27 PM Workstation Name: [id number]
[2019-08-25 14:28] LABS: Basophils # (Auto) 0.1 K/mm3 (0.0-0.1); Basophils % (Auto) 1.6 % (0.0-1.8); Eosinophils # (Auto) 0.1 K/mm3 (0.0-0.4); Hematocrit 27.1 % (35.5-45.6); Hemoglobin 8.7 gm/dl (11.8-15.2); Lymphocytes # (Auto) 0.6 K/mm3 (1.2-5.4); Lymphocytes % (Auto) 12.3 % (13.4-35.0); Mean Corpuscular HGB Conc 32 % (32-34); Mean Corpuscular Volume 84 fl (84-94); Monocytes # (Auto) 0.7 K/mm3 (0.0-0.8); Monocytes % (Auto) 15.1 % (0.0-7.3); Platelet Count 162 K/mm3 (140-440); Red Blood Count 3.24 M/mm3 (3.65-5.03)
[2019-08-25 14:29] LABS: Red Cell Distribution Width 24.2 % (13.2-15.2)
[2019-08-25 14:42] LABS: INR 1.26 (0.87-1.13)
[2019-08-25 14:43] LABS: Partial Thromboplastin Time 38.8 Sec. (24.2-36.6)
[2019-08-25 14:48] LABS: Albumin 3.2 g/dL (3.9-5)
[2019-08-25] MEDS ORDERED: [UNRECOGNIZED DRUG - OTHER] TP PRN (22:11)
[2019-08-25] MEDS ORDERED: METOCLOPRAMIDE 10 MG/2 ML INJ IV PRN (22:14)
[2019-08-25] MEDS ORDERED: ONDANSETRON 4 MG/2 ML INJ IV PRN (22:14)
[2019-08-26] MEDS: FUROSEMIDE 40 MG TAB PO SCH ×3 (01:49→22:03)
[2019-08-26] MEDS: TAMSULOSIN 0.4 MG CAP PO SCH ×3 (01:49→22:03)
[2019-08-26] MEDS: SEVELAMER CARBONATE 800 MG TAB PO SCH ×3 (01:50→16:58)
--- NOTE | 2019-08-26 07:13 | Event Note ---
Date: 08/25/19 See H/p in reports Ascites For paracentesis in AM Maybe discharged after paracentesis
--- NOTE | 2019-08-26 07:50 | History and Physical Report ---
CHIEF COMPLAINT: 1. Increasing shortness of breath. 2. Increasing distention of the abdomen. HISTORY OF PRESENT ILLNESS: A 74-year-old -[place] male with history of hypertension, cerebrovascular accident, coronary artery disease, end-stage renal disease discharged about 2 days ago after being evaluated for chest pain. The patient has ascites and gets paracentesis as an outpatient. The patient did not get paracentesis recently because of scheduling problems. The patient was sent back to the Emergency Room because of shortness of breath and increasing ascites. The patient has shortness of breath from his ascites. The patient tested positive for COVID about 2 days ago. The patient does not have any cough or fever. PAST MEDICAL HISTORY: End-stage renal disease, arthritis, asthma, COPD, cerebrovascular accident, hypertension. PAST SURGICAL HISTORY: Left AV fistula, bilateral below-knee amputations. FAMILY HISTORY: Hypertension. SOCIAL HISTORY: Does not smoke. CURRENT MEDICATIONS: On the chart. REVIEW OF SYSTEMS: Significant for shortness of breath and severe ascites. No fever. No cough. The patient tested positive for coronavirus 2 days ago. PHYSICAL EXAMINATION: GENERAL: Elderly male, cooperative during examination. Alert and oriented. VITAL SIGNS: Temperature 98, pulse is 83, sats are 97%, blood pressure is 109/59. HEENT: Unremarkable. Pupils equal and reactive. NECK: Supple, no lymphadenopathy, no thyromegaly. LUNGS: Clear to auscultation and percussion. Good air entry. CARDIOVASCULAR: S1, S2 heard. No gallop, no murmur, no rub. Apical impulse in left anterior axillary line. ABDOMEN: Severe ascites present. Fluid thrill present. Bowel sounds are present. Hernial orifices are normal. EXTREMITIES: Bilateral BKA. No wounds. CENTRAL NERVOUS SYSTEM: Alert and oriented x 4. LABORATORY DATA: Significant for white count of 4600, hemoglobin of 8.7, hematocrit of 27.1, platelet count of 162,000. Protime is 15.9, INR is 1.26. Sodium is 135, potassium is 4.1, chloride is 93.7, BUN and creatinine is 26 and 3.5, glucose is 125, alkaline phosphatase is 169. Albumin is 3.2. Chest x-ray shows stable right pleural effusion and right basilar atelectasis. ASSESSMENT AND PLAN: 1. Severe ascites. The patient for paracentesis in a.m. Radiology available tomorrow for paracentesis. Ascitic fluid to be sent for cell count and protein and glucose levels and LDH. The patient may be discharged after paracentesis, if symptomatically better. The patient will be discharged to quarantine for another 2 weeks as the patient is positive for coronavirus. 2. Coronavirus positive patient. Asymptomatic. The patient in isolation. No fever. 3. End-stage renal disease. Nephrology consult requested for possible hemodialysis. 4. Hypertension. Continue antihypertensives. 5. Hyperlipidemia. Continue atorvastatin 40 mg p.o. daily. 6. Peripheral neuropathy. Continue gabapentin. 7. Congestive heart failure. Continue Entresto. 8. Benign prostatic hypertrophy. Continue tamsulosin. 9. Deep venous thrombosis prophylaxis, heparin 5000 q. 12. JOB# [id number] CHAKA/LYNNETTE LOPEZ
[2019-08-26] MEDS: INSULIN LISPRO 100 UNIT/ML SUB-Q SCH ×3 (08:37→16:58)
--- NOTE | 2019-08-26 08:39 | Progress Note ---
Assessment and Plan Assessment and plan: --Massive ascites; For abdominal paracentesis today --Positive COVID-19; Droplet and contact isolation Supportive care --End-stage renal disease; on hemodialysis HD per schedule, nephrology consulted --Chronic systolic congestive heart failure; EF 40% Continue heart failure medications --Type 2 diabetes mellitus/upper glycemia HbA1c 5.1, Accu-Chek sliding scale coverage --Peripheral neuropathy; on gabapentin --History of BPH; continue tamsulosin DVT prophylaxis; SCD No pharmacologic anticoagulation due to pending paracentesis Critical care time 32 minutes History Interval history: Patient seen and examined in isolated room History of COVID positive recently Patient's chart and medications reviewed Isolation precautions, PPE protocols observed Admitted with massive ascites and shortness of breath As well as fluid overload Scheduled for paracentesis Patient in mild distress Vital signs reviewed Hospitalist Physical - Constitutional Vitals: Temp Pulse Resp BP Pulse Ox 98 F 84 16 96/48 98 08/26/19 06:15 08/26/19 07:00 08/26/19 03:15 08/26/19 07:00 08/26/19 04:00 General appearance: Present: mild distress, well-nourished - EENT Eyes: Present: PERRL, EOM intact - Neck Neck: Present: supple, normal ROM - Respiratory Respiratory effort: labored Respiratory: bilateral: diminished, rales, negative: rhonchi, wheezing - Cardiovascular Rhythm: regular Heart Sounds: Present: S1 & S2 - Extremities Extremities: no ischemia Extremity abnormal: edema - Abdominal General gastrointestinal: soft, non-tender, distended, normal bowel sounds - Integumentary Integumentary: Present: clear, warm - Psychiatric Psychiatric: appropriate mood/affect, cooperative - Neurologic Neurologic: moves all extremities Results - Labs CBC & Chem 7: 08/26/19 07:40 08/26/19 07:40 Labs: Laboratory Last Values WBC 4.6 K/mm3 (4.5-11.0) 08/25/19 13:46 RBC 3.24 M/mm3 (3.65-5.03) L 08/25/19 13:46 Hgb 8.7 gm/dl (11.8-15.2) L 08/25/19 13:46 Hct 27.1 % (35.5-45.6) L 08/25/19 13:46 MCV 84 fl (84-94) 08/25/19 13:46 MCH 27 pg (28-32) L 08/25/19 13:46 MCHC 32 % (32-34) 08/25/19 13:46 RDW 24.2 % (13.2-15.2) H 08/25/19 13:46 Plt Count 162 K/mm3 (140-440) 08/25/19 13:46 Lymph % (Auto) 12.3 % (13.4-35.0) L 08/25/19 13:46 [place] % (Auto) 15.1 % (0.0-7.3) H 08/25/19 13:46 Eos % (Auto) 3.0 % (0.0-4.3) 08/25/19 13:46 Baso % (Auto) 1.6 % (0.0-1.8) 08/25/19 13:46 Lymph # 0.6 K/mm3 (1.2-5.4) L 08/25/19 13:46 [place] # 0.7 K/mm3 (0.0-0.8) 08/25/19 13:46 Eos # 0.1 K/mm3 (0.0-0.4) 08/25/19 13:46 Baso # 0.1 K/mm3 (0.0-0.1) 08/25/19 13:46 Seg Neutrophils % 68.0 % (40.0-70.0) 08/25/19 13:46 Seg Neutrophils # 3.1 K/mm3 (1.8-7.7) 08/25/19 13:46 PT 15.9 Sec. (12.2-14.9) H 08/25/19 13:46 INR 1.26 (0.87-1.13) H 08/25/19 13:46 APTT 38.8 Sec. (24.2-36.6) H 08/25/19 13:46 Sodium 135 mmol/L (137-145) L 08/25/19 13:46 Potassium 4.1 mmol/L (3.6-5.0) 08/25/19 13:46 Chloride 93.7 mmol/L (98-107) L 08/25/19 13:46 Carbon Dioxide 30 mmol/L (22-30) 08/25/19 13:46 Anion Gap 15 mmol/L 08/25/19 13:46 BUN 26 mg/dL (9-20) H 08/25/19 13:46 Creatinine 3.5 mg/dL (0.8-1.5) H 08/25/19 13:46 Estimated GFR 21 ml/min 08/25/19 13:46 BUN/Creatinine Ratio 7 % 08/25/19 13:46 Glucose 125 mg/dL (75-100) H 08/25/19 13:46 POC Glucose 138 (70-105) H 08/26/19 08:18 Hemoglobin A1c 5.1 % (4-6) 08/25/19 13:46 Calcium 9.0 mg/dL (8.4-10.2) 08/25/19 13:46 Total Bilirubin 0.30 mg/dL (0.1-1.2) 08/25/19 13:46 AST 27 units/L (5-40) 08/25/19 13:46 ALT 20 units/L (7-56) 08/25/19 13:46 Alkaline Phosphatase 169 units/L (35-129) H 08/25/19 13:46 Total Protein 8.2 g/dL (6.3-8.2) 08/25/19 13:46 Albumin 3.2 g/dL (3.9-5) L 08/25/19 13:46 Albumin/Globulin Ratio 0.6 % 08/25/19 13:46 [place]/IV: IV Catheter Type [Right INT / Saline Lock Forearm] Active Medications - Current Medications Current Medications: Generic Name Dose Route Start Last Admin Trade Name Freq PRN Reason Stop Dose Admin Acetaminophen 650 mg 08/25/19 22:14 Tylenol PO Q4H PRN Pain MILD(1-3)/Fever >100.5/GARCIA Atorvastatin Calcium 40 mg 08/26/19 10:00 Lipitor PO DAILY ROBB Bisacodyl 10 mg 08/25/19 22:11 Dulcolax PO DAILY PRN Constipation Cinacalcet 30 mg 08/26/19 10:00 Sensipar PO BID [facility] Clonidine HCl 0.1 mg 08/26/19 10:00 Catapres PO DAILY [facility] Furosemide 80 mg 08/25/19 23:00 08/26/19 01:49 Lasix PO Not Given BID ROBB Gabapentin 300 mg 08/26/19 08:00 Gabapentin PO TID [facility] Hydromorphone HCl 0.5 mg 08/25/19 22:14 Dilaudid IV Q3H PRN Pain , Severe (7-10) Insulin Human Lispro 0 unit 08/26/19 07:30 08/26/19 08:37 Humalog SUB-Q Not Given ACHS [facility] Protocol Latanoprost 1 drops 08/26/19 22:00 Latanoprost 0.005% OU QHS [facility] Metoclopramide HCl 5 mg 08/25/19 22:14 Reglan IV Q6H PRN Nausea And Vomiting Metoprolol Tartrate 25 mg 08/26/19 10:00 Metoprolol PO DAILY [facility] Miscellaneous Medication 1 unit 08/25/19 22:11 Amlactin Foot Cream TP PRN PRN Rash Miscellaneous Medication 1 drop 08/26/19 10:00 Dorzolamide Hcl/Timolol Maleat [Cosopt Eye Drops] OP DAILY [facility] Miscellaneous Medication 1 drop 08/26/19 10:00 Simbrinza 1%-0.2% Eye Drops OP DAILY [facility] Ondansetron HCl 4 mg 08/25/19 22:14 Zofran IV Q8H PRN Nausea And Vomiting Oxycodone/Acetaminophen 1 tab 08/25/19 22:14 Percocet 5/325 PO Q6H PRN Pain, Moderate (4-6) Pantoprazole Sodium 20 mg 08/26/19 10:00 Protonix PO QAM [facility] Sevelamer Carbonate 800 mg 08/25/19 23:00 08/26/19 01:50 Renvela PO Not Given BID@0800,1700 ROBB Sodium Chloride 10 ml 08/25/19 23:00 08/26/19 01:50 Sodium Chloride Flush Syringe 10 Ml IV 10 ml BID ROBB Administration Sodium Chloride 10 ml 08/25/19 22:14 Sodium Chloride Flush Syringe 10 Ml IV PRN PRN LINE FLUSH Tamsulosin HCl 0.4 mg 08/25/19 23:00 08/26/19 01:49 Flomax PO Not Given BID [facility] Temazepam 30 mg 08/26/19 10:00 Restoril PO DAILY [facility] Triamcinolone Acetonide 1 applic 08/26/19 08:00 Kenalog TP TID [facility]
[2019-08-26 09:57] LABS: Albumin 2.8 g/dL (3.9-5); Calcium 9.2 mg/dL (8.4-10.2)
[2019-08-26] MEDS ORDERED: EYE OP SCH (10:00)
[2019-08-26] MEDS ORDERED: DORZOLAMIDE HCL OP SCH (10:00)
[2019-08-26] MEDS ORDERED: SIMBRINZA OP SCH (10:00)
[2019-08-26] MEDS ORDERED: TAMSULOSIN 0.4 MG CAP PO SCH (10:00)
[2019-08-26] MEDS ORDERED: TIMOLOL MALEAT OP SCH (10:00)
[2019-08-26] MEDS ORDERED: TRAVOPROST OP SCH (10:00)
[2019-08-26] MEDS: CINACALCET 30 MG TAB PO SCH ×2 (10:08→22:03)
[2019-08-26] MEDS: PANTOPRAZOLE 20 MG TAB PO SCH (10:08)
[2019-08-26] MEDS: TEMAZEPAM 15 MG CAP PO SCH (10:10)
[2019-08-26] MEDS: GABAPENTIN 300 MG CAP PO SCH ×3 (10:10→22:03)
[2019-08-26] MEDS: TRIAMCINOLONE 0.1% CREAM 15 GM TP SCH ×2 (10:10→14:22)
[2019-08-26] MEDS: SACUBITRIL/VALSARTAN 24-26 MG TAB PO SCH ×3 (10:12→22:03)
[2019-08-26] MEDS: cloNIDine 0.1 MG TAB PO SCH (10:12)
[2019-08-26] MEDS: METOPROLOL TARTRATE 25 MG TAB PO SCH (10:13)
[2019-08-26 10:16] LABS: Hematocrit 24.8 % (35.5-45.6); Hemoglobin 7.9 gm/dl (11.8-15.2); Mean Corpuscular HGB Conc 32 % (32-34); Mean Corpuscular Volume 83 fl (84-94); Platelet Count 175 K/mm3 (140-440)
[2019-08-26 10:18] LABS: Red Cell Distribution Width 24.1 % (13.2-15.2)
[2019-08-26] MEDS: oxyCODONE /ACETAMINOPHEN 5-325MG TAB PO PRN ×2 (11:13→18:00)
[2019-08-26 12:09] LABS: Anisocytosis 2+; Basophils % (Manual) 0 % (0.0-1.8); Hypochromasia 2+; Target Cells Few; Total Cells Counted 100
--- NOTE | 2019-08-26 14:25 | Procedure Note ---
Date of procedure: 08/26/19 Pre-op diagnosis: ascites Post-op diagnosis: same Procedure: US paracentesis Findings: moderate ascites Anesthesia: local Surgeon: MIESHA PERSAUD Estimated blood loss: none Pathology: list (60cc) Specimen disposition: other (saved) Condition: stable Disposition: floor
--- NOTE | 2019-08-26 14:30 | Ultrasound Report ---
ULTRASOUND-GUIDED PARACENTESIS HISTORY: Tense ascites. PROCEDURE: The risks (including but not limited to bleeding, infection, and bowel injury) and benefi ts were explained to the patient and informed consent was obtained. A time out procedure was perform ed. Ultrasound was used to evaluate the abdomen and locate the largest ascites fluid pocket. Once the sk in was marked, the procedure site was prepped and draped in the usual sterile fashion and lidocaine w as used for local anesthesia. A skin blayne was made and a 5 Wolof centesis catheter was placed. The patient was monitored closely throughout the procedure, and a total of 7700 mL of clear yellow fluid was aspirated. 60 cc of fluid was saved in case labs were needed. The patient tolerated the procedure well with no complications. IMPRESSION: Successful ultrasound-guided paracentesis as described. Signer Name: Wilbert Bauer Jr, MD Signed: 08/26/2019 2:26 PM Workstation Name: [id number]
[2019-08-26 15:58] LABS: Total Cells Counted 100 /mm3
[2019-08-26] MEDS ORDERED: SODIUM CHLORIDE 0.9% 250ML 250 ML IV ONE ×2 (18:14→18:38)
[2019-08-26] MEDS ORDERED: SODIUM CHLORIDE 0.9% 100 ML IV PRN (19:29)
[2019-08-26] MEDS ORDERED: EPOETIN ALFA 10,000 UNIT/1 ML INJ IV PRN (19:29)
--- NOTE | 2019-08-26 20:33 | Event Note ---
Date: 08/26/19 s/p abdominal paracentesis ,7.7 L of peritoneal fluid removed, Sent for analysis Patient had mild drop in blood pressure due to high volume paracentesis Advised 250 mL normal saline fluid bolus x2, closely monitor blood pressures. If patient is alert and awake, saturating well on nasal fluid bolus as needed If no improvement Levophed per protocol Plan of care reviewed with the patient's nurse
[2019-08-26] MEDS ORDERED: SODIUM CHLORIDE 0.9% 500 ML IVPB IV ONE (21:15)
[2019-08-26] MEDS ORDERED: ALBUMIN HUMAN 25% (25 GM/100 ML) INJ IV ONE (21:33)
[2019-08-26] MEDS: HYDROmorphone 1 MG/1 ML INJ IV PRN (22:02)
[2019-08-27 00:44] LABS: INR 1.27 (0.87-1.13)
[2019-08-27 00:45] LABS: Partial Thromboplastin Time 37.2 Sec. (24.2-36.6)
--- NOTE | 2019-08-27 01:24 | Procedure Note ---
Date of procedure: 08/27/19 Pre-op diagnosis: IV access Post-op diagnosis: same Procedure: Patient is a 74-year-old male that is on a pressor. Patient needs central venous line access. The hospitalist, Dr. Ho has asked me to place the CVL. Central venous line, left femoral triple-lumen procedure note: Timeout was taken with the bedside nurse patient signed consent. Patient is connected to a potline monitor. Patient's left femoral site was draped and cleaned in a sterile fashion. Mask and gown and gloves were donned. I also used personal protective equipment in accordance with CDC guidelines. Site was cleaned with chlorhexidine scrub. I anesthetized the site with 1% lidocaine. Ultrasound used. On ultrasound the venous vessel was identified and cannulated. A triple-lumen was placed without difficulty. Good blood return noted. All ports were aspirated, flushed and capped. The line was secured with 2-0 silk. A Tegaderm was placed over the line. Patient tolerated procedure well with no complications. Care will be transferred back to the primary team. Dr. Ho updated. The nurse given a verbal order to use the line. Estimated blood loss: minimal Pathology: none Condition: critical Disposition: ICU
[2019-08-27] MEDS: FLUCONAZOLE 200 MG TAB PO SCH ×2 (01:53→10:30)
[2019-08-27] MEDS: oxyCODONE /ACETAMINOPHEN 5-325MG TAB PO PRN ×3 (01:53→18:13)
[2019-08-27] MEDS: NORepinephrine/NS 4 MG-250 ML 4 MG/250 ML BAG IV SCH ×2 (01:54→16:04)
[2019-08-27] MEDS: TRIAMCINOLONE 0.1% CREAM 15 GM TP SCH ×4 (03:54→21:52)
[2019-08-27] MEDS: INSULIN LISPRO 100 UNIT/ML SUB-Q SCH ×5 (03:54→22:20)
[2019-08-27 05:32] LABS: Basophils # (Auto) 0.1 K/mm3 (0.0-0.1); Basophils % (Auto) 1.5 % (0.0-1.8); Eosinophils # (Auto) 0.2 K/mm3 (0.0-0.4); Eosinophils % (Auto) 3.5 % (0.0-4.3); Hematocrit 28.6 % (35.5-45.6); Hemoglobin 9.3 gm/dl (11.8-15.2); Lymphocytes # (Auto) 0.5 K/mm3 (1.2-5.4); Lymphocytes % (Auto) 11.6 % (13.4-35.0); Mean Corpuscular HGB Conc 33 % (32-34); Mean Corpuscular Volume 83 fl (84-94); Monocytes # (Auto) 0.7 K/mm3 (0.0-0.8); Monocytes % (Auto) 14.3 % (0.0-7.3); Platelet Count 144 K/mm3 (140-440); Red Blood Count 3.44 M/mm3 (3.65-5.03)
[2019-08-27 05:34] LABS: Calcium 8.4 mg/dL (8.4-10.2)
[2019-08-27 05:36] LABS: Red Cell Distribution Width 24.2 % (13.2-15.2)
--- NOTE | 2019-08-27 08:21 | Progress Note ---
Assessment and Plan Assessment and plan: --Shock, septic versus hypovolemic; on Levophed Unlikely septic as patient has no fever no leukocytosis no source of infection Patient had large volume paracentesis yesterday and removal of 7.7 L peritoneal fluid --Massive ascites; s/p abdominal paracentesis removal of 7.7 L peritoneal fluid Follow fluid analysis, fluid restriction, Lasix --Positive COVID-19; Droplet and contact isolation Supportive care --End-stage renal disease; on hemodialysis HD per schedule, nephrology consulted --Chronic systolic congestive heart failure; EF 40% Continue heart failure medications --Type 2 diabetes mellitus/upper glycemia HbA1c 5.1, Accu-Chek sliding scale coverage --Peripheral neuropathy; on gabapentin --History of BPH; continue tamsulosin DVT prophylaxis; SCD No pharmacologic anticoagulation due to pending paracentesis To closely and adjust the management as needed Critical care time 32 minutes History Interval history: I have seen the patient and examined in ICU this morning Patient's chart, overnight events, tests and other reports reviewed Patient is hypotensive on Levophed Alert and awake, responding appropriately Complains of mild shortness of breath Vital signs reviewed Hospitalist Physical - Constitutional Vitals: Temp Pulse Resp BP Pulse Ox 98.2 F 83 11 L 85/47 100 08/27/19 03:39 08/27/19 06:00 08/27/19 06:00 08/27/19 06:00 08/27/19 06:00 General appearance: Present: mild distress, well-nourished - EENT Eyes: Present: PERRL, EOM intact - Neck Neck: Present: supple, normal ROM - Respiratory Respiratory effort: normal Respiratory: bilateral: diminished, negative: rales - Cardiovascular Rhythm: regular Heart Sounds: Present: S1 & S2 - Extremities Extremities: no ischemia Extremity abnormal: edema - Abdominal General gastrointestinal: soft, non-tender, non-distended, normal bowel sounds - Integumentary Integumentary: Present: clear, warm - Psychiatric Psychiatric: appropriate mood/affect, cooperative - Neurologic Neurologic: CNII-XII intact, moves all extremities Results - Labs CBC & Chem 7: 08/27/19 04:37 08/27/19 04:37 Labs: Laboratory Last Values WBC 4.6 K/mm3 (4.5-11.0) 08/27/19 04:37 RBC 3.44 M/mm3 (3.65-5.03) L 08/27/19 04:37 Hgb 9.3 gm/dl (11.8-15.2) L 08/27/19 04:37 Hct 28.6 % (35.5-45.6) L 08/27/19 04:37 MCV 83 fl (84-94) L 08/27/19 04:37 MCH 27 pg (28-32) L 08/27/19 04:37 MCHC 33 % (32-34) 08/27/19 04:37 RDW 24.2 % (13.2-15.2) H 08/27/19 04:37 Plt Count 144 K/mm3 (140-440) 08/27/19 04:37 Lymph % (Auto) 11.6 % (13.4-35.0) L 08/27/19 04:37 Ellis % (Auto) 14.3 % (0.0-7.3) H 08/27/19 04:37 Eos % (Auto) 3.5 % (0.0-4.3) 08/27/19 04:37 Baso % (Auto) 1.5 % (0.0-1.8) 08/27/19 04:37 Lymph # 0.5 K/mm3 (1.2-5.4) L 08/27/19 04:37 Ellis # 0.7 K/mm3 (0.0-0.8) 08/27/19 04:37 Eos # 0.2 K/mm3 (0.0-0.4) 08/27/19 04:37 Baso # 0.1 K/mm3 (0.0-0.1) 08/27/19 04:37 Add Manual Diff Complete 08/26/19 07:40 Total Counted 100 08/26/19 07:40 Seg Neutrophils % 69.1 % (40.0-70.0) 08/27/19 04:37 Seg Neuts % (Manual) 75.0 % (40.0-70.0) H 08/26/19 07:40 Band Neutrophils % 1.0 % 08/26/19 07:40 Lymphocytes % (Manual) 16.0 % (13.4-35.0) 08/26/19 07:40 Reactive Lymphs % (Man) 0 % 08/26/19 07:40 Monocytes % (Manual) 4.0 % (0.0-7.3) 08/26/19 07:40 Eosinophils % (Manual) 4.0 % (0.0-4.3) 08/26/19 07:40 Basophils % (Manual) 0 % (0.0-1.8) 08/26/19 07:40 Metamyelocytes % 0 % 08/26/19 07:40 Myelocytes % 0 % 08/26/19 07:40 Promyelocytes % 0 % 08/26/19 07:40 Blast Cells % 0 % 08/26/19 07:40 Nucleated RBC % Not Reportable 08/26/19 07:40 Seg Neutrophils # 3.1 K/mm3 (1.8-7.7) 08/27/19 04:37 Seg Neutrophils # Man 3.2 K/mm3 (1.8-7.7) 08/26/19 07:40 Band Neutrophils # 0.0 K/mm3 08/26/19 07:40 Lymphocytes # (Manual) 0.7 K/mm3 (1.2-5.4) L 08/26/19 07:40 Abs React Lymphs (Man) 0.0 K/mm3 08/26/19 07:40 Monocytes # (Manual) 0.2 K/mm3 (0.0-0.8) 08/26/19 07:40 Eosinophils # (Manual) 0.2 K/mm3 (0.0-0.4) 08/26/19 07:40 Basophils # (Manual) 0.0 K/mm3 (0.0-0.1) 08/26/19 07:40 Metamyelocytes # 0.0 K/mm3 08/26/19 07:40 Myelocytes # 0.0 K/mm3 08/26/19 07:40 Promyelocytes # 0.0 K/mm3 08/26/19 07:40 Blast Cells # 0.0 K/mm3 08/26/19 07:40 WBC Morphology Not Reportable 08/26/19 07:40 Hypersegmented Neuts Not Reportable 08/26/19 07:40 Hyposegmented Neuts Not Reportable 08/26/19 07:40 Hypogranular Neuts Not Reportable 08/26/19 07:40 Smudge Cells Not Reportable 08/26/19 07:40 Toxic Granulation Not Reportable 08/26/19 07:40 Toxic Vacuolation Not Reportable 08/26/19 07:40 Dohle Bodies Not Reportable 08/26/19 07:40 Pelger-Huet Anomaly Not Reportable 08/26/19 07:40 Shola Rods Not Reportable 08/26/19 07:40 Platelet Estimate Not Reportable 08/26/19 07:40 Clumped Platelets Not Reportable 08/26/19 07:40 Plt Clumps, EDTA Not Reportable 08/26/19 07:40 Large Platelets Not Reportable 08/26/19 07:40 Giant Platelets Not Reportable 08/26/19 07:40 Platelet Satelliting Not Reportable 08/26/19 07:40 Plt Morphology Comment Not Reportable 08/26/19 07:40 RBC Morphology Not Reportable 08/26/19 07:40 Dimorphic RBCs Not Reportable 08/26/19 07:40 Polychromasia Not Reportable 08/26/19 07:40 Hypochromasia 2+ 08/26/19 07:40 Poikilocytosis Not Reportable 08/26/19 07:40 Anisocytosis 2+ 08/26/19 07:40 Microcytosis Not Reportable 08/26/19 07:40 Macrocytosis Not Reportable 08/26/19 07:40 Spherocytes Not Reportable 08/26/19 07:40 Pappenheimer Bodies Not Reportable 08/26/19 07:40 Sickle Cells Not Reportable 08/26/19 07:40 Target Cells Few 08/26/19 07:40 Tear Drop Cells Not Reportable 08/26/19 07:40 Ovalocytes Not Reportable 08/26/19 07:40 Helmet Cells Not Reportable 08/26/19 07:40 [place] Bodies Not Reportable 08/26/19 07:40 [place] Rings Not Reportable 08/26/19 07:40 [place] Cells Not Reportable 08/26/19 07:40 Bite Cells Not Reportable 08/26/19 07:40 Crenated Cell Not Reportable 08/26/19 07:40 Elliptocytes Not Reportable 08/26/19 07:40 Acanthocytes (Spur) Not Reportable 08/26/19 07:40 Rouleaux Not Reportable 08/26/19 07:40 Hemoglobin C Crystals Not Reportable 08/26/19 07:40 Schistocytes Not Reportable 08/26/19 07:40 Malaria parasites Not Reportable 08/26/19 07:40 Wero Bodies Not Reportable 08/26/19 07:40 Hem Pathologist Commnt C 08/26/19 07:40 PT 16.0 Sec. (12.2-14.9) H 08/26/19 23:50 INR 1.27 (0.87-1.13) H 08/26/19 23:50 APTT 37.2 Sec. (24.2-36.6) H 08/26/19 23:50 Sodium 134 mmol/L (137-145) L 08/27/19 04:37 Potassium 5.0 mmol/L (3.6-5.0) 08/27/19 04:37 Chloride 93.6 mmol/L (98-107) L 08/27/19 04:37 Carbon Dioxide 26 mmol/L (22-30) 08/27/19 04:37 Anion Gap 19 mmol/L 08/27/19 04:37 BUN 39 mg/dL (9-20) H 08/27/19 04:37 Creatinine 4.7 mg/dL (0.8-1.5) H 08/27/19 04:37 Estimated GFR 15 ml/min 08/27/19 04:37 BUN/Creatinine Ratio 8 % 08/27/19 04:37 Glucose 118 mg/dL (75-100) H 08/27/19 04:37 POC Glucose 186 (70-105) H 08/27/19 05:59 Hemoglobin A1c 5.1 % (4-6) 08/25/19 13:46 Calcium 8.4 mg/dL (8.4-10.2) 08/27/19 04:37 Total Bilirubin 0.30 mg/dL (0.1-1.2) 08/26/19 07:40 AST 20 units/L (5-40) 08/26/19 07:40 ALT 17 units/L (7-56) 08/26/19 07:40 Alkaline Phosphatase 146 units/L (35-129) H 08/26/19 07:40 Total Protein 7.7 g/dL (6.3-8.2) 08/26/19 07:40 Albumin 2.8 g/dL (3.9-5) L 08/26/19 07:40 Albumin/Globulin Ratio 0.6 % 08/26/19 07:40 Fluid Type Ascitic 08/25/19 Unknown Fluid Color Yellow 08/25/19 Unknown Fluid Appearance Hazy 08/25/19 Unknown Fluid WBC 196 /mm3 08/25/19 Unknown Fluid RBC 99 /mm3 08/25/19 Unknown Fluid Seg Neutrophils 2.0 % 08/25/19 Unknown Fluid Lymphocytes 17.0 % 08/25/19 Unknown Fluid Reactive Lymphs 0 % 08/25/19 Unknown Fluid Monocytes 71.0 % 08/25/19 Unknown Fluid Eosinophils 10.0 % 08/25/19 Unknown Fluid Basophils 0 % 08/25/19 Unknown [place]/IV: IV Catheter Type [Right INT / Saline Lock Forearm] Active Medications - Current Medications Current Medications: Generic Name Dose Route Start Last Admin Trade Name Freq PRN Reason Stop Dose Admin Acetaminophen 650 mg 08/25/19 22:14 Tylenol PO Q4H PRN Pain MILD(1-3)/Fever >100.5/GARCIA Aspirin 81 mg 08/27/19 10:00 Halfprin Ec PO QDAY [facility] Atorvastatin Calcium 40 mg 08/26/19 10:00 08/26/19 10:08 Lipitor PO 40 mg DAILY ROBB Administration Bisacodyl 10 mg 08/25/19 22:11 Dulcolax PO DAILY PRN Constipation Cinacalcet 30 mg 08/26/19 10:00 08/26/19 22:03 Sensipar PO 30 mg BID ROBB Administration Clonidine HCl 0.1 mg 08/26/19 10:00 08/26/19 10:12 Catapres PO Not Given DAILY [facility] Clopidogrel Bisulfate 75 mg 08/27/19 10:00 Plavix PO QDAY [facility] Epoetin Francisco 10,000 unit 08/26/19 19:29 Procrit IV SHY PRN hemodialysis Fluconazole 200 mg 08/26/19 22:00 08/27/19 01:53 Diflucan PO 200 mg QDAY ROBB Administration Furosemide 80 mg 08/25/19 23:00 08/26/19 22:03 Lasix PO 80 mg BID ROBB Administration Gabapentin 300 mg 08/26/19 08:00 08/26/19 22:03 Gabapentin PO 300 mg TID ROBB Administration Hydromorphone HCl 0.5 mg 08/25/19 22:14 08/26/19 22:02 Dilaudid IV 0.5 mg Q3H PRN Administration Pain , Severe (7-10) Sodium Chloride 100 mls @ 999 mls/hr 08/26/19 19:29 Nacl 0.9% IV SHY PRN Hypotension Norepinephrine 4 mg in 250 mls @ 7.5 mls/hr 08/26/19 21:00 08/27/19 06:49 Levophed Drip 4 Mg/Ns 250 Ml IV 6 mcg/min TITR ROBB 22.5 mls/hr Titration Protocol 2 MCG/MIN Insulin Human Lispro 0 unit 08/26/19 07:30 08/27/19 03:54 Humalog SUB-Q Not Given ACHS ROBB Protocol Latanoprost 1 drops 08/26/19 22:00 Latanoprost 0.005% OU QHS ROBB Metoclopramide HCl 5 mg 08/25/19 22:14 Reglan IV Q6H PRN Nausea And Vomiting Metoprolol Tartrate 25 mg 08/26/19 10:00 08/26/19 10:13 Metoprolol PO Not Given DAILY ROBB Miscellaneous Medication 1 unit 08/25/19 22:11 Amlactin Foot Cream TP PRN PRN Rash Miscellaneous Medication 1 drop 08/26/19 10:00 Dorzolamide Hcl/Timolol Maleat [Cosopt Eye Drops] OP DAILY ROBB Miscellaneous Medication 1 drop 08/26/19 10:00 Simbrinza 1%-0.2% Eye Drops OP DAILY ROBB Ondansetron HCl 4 mg 08/25/19 22:14 Zofran IV Q8H PRN Nausea And Vomiting Oxycodone/Acetaminophen 1 tab 08/25/19 22:14 08/27/19 01:53 Percocet 5/325 PO 1 tab Q6H PRN Administration Pain, Moderate (4-6) Pantoprazole Sodium 20 mg 08/26/19 10:00 08/26/19 10:08 Protonix PO 20 mg QAM ROBB Administration Sevelamer Carbonate 800 mg 08/25/19 23:00 08/26/19 16:58 Renvela PO 800 mg BID@0800,1700 ROBB Administration Sodium Chloride 10 ml 08/25/19 23:00 08/26/19 22:04 Sodium Chloride Flush Syringe 10 Ml IV 10 ml BID ROBB Administration Sodium Chloride 10 ml 05/20/20 22:14 Sodium Chloride Flush Syringe 10 Ml IV PRN PRN LINE FLUSH Tamsulosin HCl 0.4 mg 08/25/19 23:00 08/26/19 22:03 Flomax PO 0.4 mg BID ROBB Administration Temazepam 30 mg 08/26/19 10:00 08/26/19 10:10 Restoril PO 30 mg DAILY ROBB Administration Triamcinolone Acetonide 1 applic 08/26/19 08:00 08/27/19 03:54 Kenalog TP Not Given TID ROBB
--- NOTE | 2019-08-27 08:22 | Consultation ---
History of Present Illness - Reason for Consult Consult date: 08/27/19 end stage renal disease Requesting physician: BRENT GALLARDO - History of Present Illness 74-year-old man with was well known to our group with a history of hypertension, type 2 diabetes mellitus, coronary artery disease, peripheral arterial disease status post below-knee amputation, chronic systolic heart failure with recurrent ascites. Patient also has end-stage renal disease on hemodialysis on a Friday schedule. Patient recently had Covid 19 and was debilitated by time of discharge and is undergoing rehabilitation at a care home facility. His at home has terminal cancer and he cannot be discharged home until he is able to transfer better and also has a negative SARS coronavirus 2 test. Unfortunately he is repeats tests have been negative including just last week. Patient is dialyzing at [address] [place] [address] exclusively for patients with Covid 19. Patient presents on account of shortness of breath and abdominal distention. He has not received paracentesis for about 3-4 months and was apparently doing well until now he states. He believes his shortness of breath was from the ascites as he feels much better now. Patient had large volume paracentesis yesterday (7.7 liters) then became hypotensive and required central line placement with IV pressor therapy. He is now in the intensive care unit on levophed at 6 mcgs. Past History Past Medical History: CAD, diabetes, ESRD, hypertension, hyperlipidemia, PVD, other (recurrent ascites) Past Surgical History: Other (AV access placement, below knee amputations, cardiac catheterization with percutaneous transluminalcoronary angioplasty and stenting, percutaneous transluminal angioplasty to the left leg) Social history: , lives with family (was living with . 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 denies: smoking, alcohol abuse, prescription drug abuse Family history: cancer (mother of pancreatic cancer. She had type 2 diabetes mellitus and hypertension), diabetes (strong family history of diabetes including daughter), hypertension (strong family history of hypertension), other (Brother from blood clots. Sister of heart disease as a complication of diabetes mellitus, hypertension end-stage renal disease.) Medications and Allergies Allergies Allergy/AdvReac Type Severity Reaction Status Date / Time No Known Allergies Allergy Verified 11/06/17 12:21 Home Medications Medication Instructions Recorded Confirmed Last Taken Type Aspirin EC [Halfprin EC] 81 mg PO QDAY 11/06/17 08/25/19 02/21/18 History AtorvaSTATin [Lipitor] 40 mg PO DAILY 11/06/17 08/25/19 02/21/18 History Gabapentin 300 mg PO TID 11/06/17 08/25/19 02/21/18 History Metoprolol [Lopressor TAB] 25 mg PO DAILY MDD BLOOD PRESSURE 11/06/17 08/25/19 02/21/18 History cloNIDine [Catapres] 0.1 mg PO DAILY 11/06/17 08/25/19 02/21/18 History Cinacalcet [Sensipar] 30 mg PO BID 02/21/18 08/25/19 02/21/18 History Furosemide [Lasix TAB] 80 mg PO BID 02/21/18 08/25/19 02/21/18 History Tamsulosin HCl [Flomax] 0.4 mg PO BID 02/21/18 08/25/19 02/21/18 History Temazepam [Restoril] 30 mg PO DAILY 02/21/18 08/25/19 02/21/18 History Triamcinolone 0.1% [Kenalog 0.1% 1 applic TP TID 02/21/18 08/25/19 02/21/18 History CREAM] Dorzolamide HCl/Timolol Maleat 1 drop OP DAILY 07/16/18 08/25/19 Unknown History [Cosopt Eye Drops] Clopidogrel [Plavix] 75 mg PO QDAY tablet 12/08/18 08/25/19 Unknown Rx Amlactin Foot Cream 1 unit TP PRN PRN 08/25/19 08/25/19 Unknown History Fluconazole [Diflucan TAB] 200 mg PO QDAY 08/25/19 08/25/19 Unknown History Ipratropium/Albuterol Sulfate 4 gm IH PRN PRN 08/25/19 08/25/19 Unknown History [Combivent Respimat Inhal [place]] Lispro Insulin [HumaLOG] See Protocol SQ AC 08/25/19 08/25/19 Unknown History Nitroglycerin [Nitrostat] 1 tab SUBLINGUAL PRN PRN 08/25/19 08/25/19 Unknown History Omeprazole 20 mg PO DAILY 08/25/19 08/25/19 Unknown History Sacubitril/Valsartan [Entresto 24 1 each PO BID 08/25/19 08/25/19 Unknown History - 26 mg] Sevelamer Carbonate [Renvela] 800 mg PO BIDWM 08/25/19 08/25/19 Unknown History Simbrinza 1%-0.2% Eye Drops 1 drop OP DAILY 08/25/19 08/25/19 Unknown History Tamsulosin [Flomax] 1 cap PO BID 08/25/19 08/25/19 Unknown History Travoprost 2.5 ml OP DAILY 08/25/19 08/25/19 Unknown History bisacodyL [Dulcolax] 10 mg PO DAILY PRN 08/25/19 08/25/19 Unknown History oxyCODONE /ACETAMINOPHEN [Percocet 1 tab PO Q4HR PRN 08/25/19 08/25/19 Unknown History ] Active Meds: Active Medications Acetaminophen (Tylenol) 650 mg PO Q4H PRN PRN Reason: Pain MILD(1-3)/Fever >100.5/GARCIA Aspirin (Halfprin Ec) 81 mg PO QDAY [facility] Atorvastatin Calcium (Lipitor) 40 mg PO DAILY [facility] Last Admin: 08/26/19 10:08 Dose: 40 mg Documented by: Bisacodyl (Dulcolax) 10 mg PO DAILY PRN PRN Reason: Constipation Cinacalcet (Sensipar) 30 mg PO BID [facility] Last Admin: 08/26/19 22:03 Dose: 30 mg Documented by: Clonidine HCl (Catapres) 0.1 mg PO DAILY [facility] Last Admin: 08/26/19 10:12 Dose: Not Given Documented by: Clopidogrel Bisulfate (Plavix) 75 mg PO QDAY [facility] Epoetin [place] (Procrit) 10,000 unit IV SHY PRN PRN Reason: hemodialysis Fluconazole (Diflucan) 200 mg PO QDAY [facility] Last Admin: 08/27/19 01:53 Dose: 200 mg Documented by: Furosemide (Lasix) 80 mg PO BID [facility] Last Admin: 08/26/19 22:03 Dose: 80 mg Documented by: Gabapentin (Gabapentin) 300 mg PO TID [facility] Last Admin: 08/26/19 22:03 Dose: 300 mg Documented by: Hydromorphone HCl (Dilaudid) 0.5 mg IV Q3H PRN PRN Reason: Pain , Severe (7-10) Last Admin: 08/26/19 22:02 Dose: 0.5 mg Documented by: Sodium Chloride (Nacl 0.9%) 100 mls @ 999 mls/hr IV SHY PRN PRN Reason: Hypotension Norepinephrine (Levophed Drip 4 Mg/Ns 250 Ml) 4 mg in 250 mls @ 7.5 mls/hr IV TITR [facility]; Protocol Last Titration: 08/27/19 06:49 Dose: 6 mcg/min, 22.5 mls/hr Documented by: Insulin Human Lispro (Humalog) 0 unit SUB-Q ACHS ROBB; Protocol Last Admin: 08/27/19 03:54 Dose: Not Given Documented by: Latanoprost (Latanoprost 0.005%) 1 drops OU QHS ROBB Metoclopramide HCl (Reglan) 5 mg IV Q6H PRN PRN Reason: Nausea And Vomiting Metoprolol Tartrate (Metoprolol) 25 mg PO DAILY [facility] Last Admin: 08/26/19 10:13 Dose: Not Given Documented by: Miscellaneous Medication (Amlactin Foot Cream) 1 unit TP PRN PRN PRN Reason: Rash Miscellaneous Medication (Dorzolamide Hcl/Timolol Maleat [Cosopt Eye Drops]) 1 drop OP DAILY ROBB Miscellaneous Medication (Simbrinza 1%-0.2% Eye Drops) 1 drop OP DAILY ROBB Ondansetron HCl (Zofran) 4 mg IV Q8H PRN PRN Reason: Nausea And Vomiting Oxycodone/Acetaminophen (Percocet 5/325) 1 tab PO Q6H PRN PRN Reason: Pain, Moderate (4-6) Last Admin: 08/27/19 01:53 Dose: 1 tab Documented by: Pantoprazole Sodium (Protonix) 20 mg PO QAM [facility] Last Admin: 08/26/19 10:08 Dose: 20 mg Documented by: Sevelamer Carbonate (Renvela) 800 mg PO BID@0800,1700 [facility] Last Admin: 08/26/19 16:58 Dose: 800 mg Documented by: Sodium Chloride (Sodium Chloride Flush Syringe 10 Ml) 10 ml IV BID [facility] Last Admin: 08/26/19 22:04 Dose: 10 ml Documented by: Sodium Chloride (Sodium Chloride Flush Syringe 10 Ml) 10 ml IV PRN PRN PRN Reason: LINE FLUSH Tamsulosin HCl (Flomax) 0.4 mg PO BID [facility] Last Admin: 08/26/19 22:03 Dose: 0.4 mg Documented by: Temazepam (Restoril) 30 mg PO DAILY [facility] Last Admin: 08/26/19 10:10 Dose: 30 mg Documented by: Triamcinolone Acetonide (Kenalog) 1 applic TP TID [facility] Last Admin: 08/27/19 03:54 Dose: Not Given Documented by: Review of Systems All systems: negative (as noted in history of present illness) Exam - Vital Signs Vital signs: Vital Signs Temp Pulse Resp BP Pulse Ox 98.4 F 87 16 120/55 100 08/25/19 11:30 08/25/19 11:30 08/25/19 11:30 08/25/19 11:30 08/25/19 11:30 - Physical Exam Narrative exam: elderly -[place]vian male lying in bedin no acute distress HEENT: Normocephalic atraumatic, pupils equal round reactive to light Normal oropharynx, Neck: Supple, no venous distention, no goiter CVS: S1S2 RRR No murmur, No rub or gallop Lungs: Clear to auscultation, no use of accessory muscles of respiration Abdomen: mildly distended, soft, nontender, no organomegaly no bruit, bowel sounds are present Extremities: 2+ edema both eyes and left upper extremity, no cyanosis or clubbing, bilateral below knee amputations Urinary: Deferred Musculo-skeletal: No joint deformities Neuro: Awake, alert, no focal deficits Results - Lab Results 08/27/19 04:37 08/27/19 04:37 Most recent lab results Calcium 8.4 mg/dL (8.4-10.2) 08/27/19 04:37 Assessment and Plan - Patient Problems (1) Ascites Current Visit: Yes Status: Acute Plan to address problem: improved after paracentesis. We will schedule paracentesis every 2-4 weeks as an outpatient as indicated (2) Hypotension Current Visit: Yes Status: Acute Plan to address problem: patient on Levophed. We will start midodrine and wean Levophed as tolerated maintaining his mean arterial pressure more than 65 (3) Pneumonia due to COVID-19 virus Current Visit: Yes Status: Acute Plan to address problem: recent pneumonia due to Covid 19. Patient's SARS coronavirus 2 still positive as of last week. Testing been done today (4) Chronic systolic (congestive) heart failure Current Visit: No Status: Acute Plan to address problem: fluid removal on dialysis. Unable to tolerate beta-jos or ALBA inhibitor now due to low blood pressure. (5) Type 2 diabetes mellitus with diabetic chronic kidney disease Current Visit: No Status: Acute Plan to address problem: blood sugar management by primary attending. (6) ESRD (end stage renal disease) on dialysis Current Visit: No Status: Chronic Plan to address problem: hemodialysis on a Friday, Friday and Friday schedule. (7) Anemia in chronic kidney disease (CKD) Current Visit: Yes Status: Acute Plan to address problem: give erythropoietin on dialysis and follow-up hemoglobin
[2019-08-27] MEDS: SEVELAMER CARBONATE 800 MG TAB PO SCH ×2 (08:30→17:30)
[2019-08-27] MEDS: GABAPENTIN 300 MG CAP PO SCH ×3 (08:30→21:52)
[2019-08-27] MEDS: METOPROLOL TARTRATE 25 MG TAB PO SCH (10:00)
[2019-08-27] MEDS: SACUBITRIL/VALSARTAN 24-26 MG TAB PO SCH (10:00)
[2019-08-27] MEDS: cloNIDine 0.1 MG TAB PO SCH (10:00)
[2019-08-27] MEDS: CINACALCET 30 MG TAB PO SCH ×2 (10:17→21:52)
[2019-08-27] MEDS: TEMAZEPAM 15 MG CAP PO SCH (10:18)
[2019-08-27] MEDS: CLOPIDOGREL 75 MG TAB PO SCH (10:19)
[2019-08-27] MEDS: TAMSULOSIN 0.4 MG CAP PO SCH ×2 (10:30→21:52)
[2019-08-27] MEDS: ASPIRIN EC 81 MG TAB PO SCH (10:30)
[2019-08-27] MEDS: PANTOPRAZOLE 20 MG TAB PO SCH (10:35)
--- NOTE | 2019-08-27 10:51 | Consultation ---
History of Present Illness - Reason for Consult Consult date: 08/27/19 Hypotension Requesting physician: LINDSAY SMT[facility] - History of Present Illness 74 y/o male admitted 2 days ago with ascities and dyspnea. Also COVID 19 positive. Had large volume paracentesis yesterday (7.7 liters) then became hypotensive and required central line placement with IV pressor therapy. IMS asked me to follow secondary to hypotension. Currently on levophed at 6 mcgs. Patient also developing worsening renal failure. Past History Past Medical History: hypertension, hyperlipidemia Medications and Allergies Allergies Allergy/AdvReac Type Severity Reaction Status Date / Time No Known Allergies Allergy Verified 11/06/17 12:21 Home Medications Medication Instructions Recorded Confirmed Last Taken Type Aspirin EC [Halfprin EC] 81 mg PO QDAY 11/06/17 08/25/19 02/21/18 History AtorvaSTATin [Lipitor] 40 mg PO DAILY 11/06/17 08/25/19 02/21/18 History Gabapentin 300 mg PO TID 11/06/17 08/25/19 02/21/18 History Metoprolol [Lopressor TAB] 25 mg PO DAILY MDD BLOOD PRESSURE 11/06/17 08/25/19 02/21/18 History cloNIDine [Catapres] 0.1 mg PO DAILY 11/06/17 08/25/19 02/21/18 History Cinacalcet [Sensipar] 30 mg PO BID 02/21/18 08/25/19 02/21/18 History Furosemide [Lasix TAB] 80 mg PO BID 02/21/18 08/25/19 02/21/18 History Tamsulosin HCl [Flomax] 0.4 mg PO BID 02/21/18 08/25/19 02/21/18 History Temazepam [Restoril] 30 mg PO DAILY 02/21/18 08/25/19 02/21/18 History Triamcinolone 0.1% [Kenalog 0.1% 1 applic TP TID 02/21/18 08/25/19 02/21/18 History CREAM] Dorzolamide HCl/Timolol Maleat 1 drop OP DAILY 07/16/18 08/25/19 Unknown History [Cosopt Eye Drops] Clopidogrel [Plavix] 75 mg PO QDAY tablet 12/08/18 08/25/19 Unknown Rx Amlactin Foot Cream 1 unit TP PRN PRN 08/25/19 08/25/19 Unknown History Fluconazole [Diflucan TAB] 200 mg PO QDAY 08/25/19 08/25/19 Unknown History Ipratropium/Albuterol Sulfate 4 gm IH PRN PRN 08/25/19 08/25/19 Unknown History [Combivent Respimat Inhal [place]] Lispro Insulin [HumaLOG] See Protocol SQ AC 08/25/19 08/25/19 Unknown History Nitroglycerin [Nitrostat] 1 tab SUBLINGUAL PRN PRN 08/25/19 08/25/19 Unknown History Omeprazole 20 mg PO DAILY 08/25/19 08/25/19 Unknown History Sacubitril/Valsartan [Entresto 24 1 each PO BID 08/25/19 08/25/19 Unknown History - 26 mg] Sevelamer Carbonate [Renvela] 800 mg PO BIDWM 08/25/19 08/25/19 Unknown History Simbrinza 1%-0.2% Eye Drops 1 drop OP DAILY 08/25/19 08/25/19 Unknown History Tamsulosin [Flomax] 1 cap PO BID 08/25/19 08/25/19 Unknown History Travoprost 2.5 ml OP DAILY 08/25/19 08/25/19 Unknown History bisacodyL [Dulcolax] 10 mg PO DAILY PRN 08/25/19 08/25/19 Unknown History oxyCODONE /ACETAMINOPHEN [Percocet 1 tab PO Q4HR PRN 08/25/19 08/25/19 Unknown History 5/325] Active Meds: Active Medications Acetaminophen (Tylenol) 650 mg PO Q4H PRN PRN Reason: Pain MILD(1-3)/Fever >100.5/GARCIA Aspirin (Halfprin Ec) 81 mg PO QDAY [facility] Atorvastatin Calcium (Lipitor) 40 mg PO DAILY [facility] Last Admin: 08/26/19 10:08 Dose: 40 mg Documented by: Bisacodyl (Dulcolax) 10 mg PO DAILY PRN PRN Reason: Constipation Cinacalcet (Sensipar) 30 mg PO BID [facility] Last Admin: 08/27/19 10:17 Dose: 30 mg Documented by: Clonidine HCl (Catapres) 0.1 mg PO DAILY [facility] Last Admin: 08/26/19 10:12 Dose: Not Given Documented by: Clopidogrel Bisulfate (Plavix) 75 mg PO QDAY [facility] Last Admin: 08/27/19 10:19 Dose: 75 mg Documented by: Epoetin Francisco (Procrit) 10,000 unit IV SHY PRN PRN Reason: hemodialysis Fluconazole (Diflucan) 200 mg PO QDAY [facility] Last Admin: 08/27/19 01:53 Dose: 200 mg Documented by: Furosemide (Lasix) 80 mg PO BID [facility] Last Admin: 08/26/19 22:03 Dose: 80 mg Documented by: Gabapentin (Gabapentin) 300 mg PO TID [facility] Last Admin: 08/27/19 08:30 Dose: 300 mg Documented by: Hydromorphone HCl (Dilaudid) 0.5 mg IV Q3H PRN PRN Reason: Pain , Severe (7-10) Last Admin: 08/26/19 22:02 Dose: 0.5 mg Documented by: Sodium Chloride (Nacl 0.9%) 100 mls @ 999 mls/hr IV SHY PRN PRN Reason: Hypotension Norepinephrine (Levophed Drip 4 Mg/Ns 250 Ml) 4 mg in 250 mls @ 7.5 mls/hr IV TITR [facility]; Protocol Last Titration: 08/27/19 06:49 Dose: 6 mcg/min, 22.5 mls/hr Documented by: Vasopressin 20 unit/ Sodium (Chloride) 101 mls @ 9.09 mls/hr IV TITR [facility]; Protocol Insulin Human Lispro (Humalog) 0 unit SUB-Q ACHS [facility]; Protocol Last Admin: 08/27/19 03:54 Dose: Not Given Documented by: Latanoprost (Latanoprost 0.005%) 1 drops OU QHS [facility] Metoclopramide HCl (Reglan) 5 mg IV Q6H PRN PRN Reason: Nausea And Vomiting Metoprolol Tartrate (Metoprolol) 25 mg PO DAILY [facility] Last Admin: 08/26/19 10:13 Dose: Not Given Documented by: Miscellaneous Medication (Amlactin Foot Cream) 1 unit TP PRN PRN PRN Reason: Rash Miscellaneous Medication (Dorzolamide Hcl/Timolol Maleat [Cosopt Eye Drops]) 1 drop OP DAILY [facility] Miscellaneous Medication (Simbrinza 1%-0.2% Eye Drops) 1 drop OP DAILY [facility] Ondansetron HCl (Zofran) 4 mg IV Q8H PRN PRN Reason: Nausea And Vomiting Oxycodone/Acetaminophen (Percocet 5/325) 1 tab PO Q6H PRN PRN Reason: Pain, Moderate (4-6) Last Admin: 08/27/19 10:35 Dose: 1 tab Documented by: Pantoprazole Sodium (Protonix) 20 mg PO QAM [facility] Last Admin: 08/27/19 10:35 Dose: 20 mg Documented by: Sevelamer Carbonate (Renvela) 800 mg PO BID@0800,1700 [facility] Last Admin: 08/27/19 08:30 Dose: 800 mg Documented by: Sodium Chloride (Sodium Chloride Flush Syringe 10 Ml) 10 ml IV BID [facility] Last Admin: 08/27/19 10:21 Dose: 10 ml Documented by: Sodium Chloride (Sodium Chloride Flush Syringe 10 Ml) 10 ml IV PRN PRN PRN Reason: LINE FLUSH Tamsulosin HCl (Flomax) 0.4 mg PO BID [facility] Last Admin: 08/26/19 22:03 Dose: 0.4 mg Documented by: Temazepam (Restoril) 30 mg PO DAILY [facility] Last Admin: 08/27/19 10:18 Dose: 30 mg Documented by: Triamcinolone Acetonide (Kenalog) 1 applic TP TID [facility] Last Admin: 08/27/19 03:54 Dose: Not Given Documented by: Exam - Constitutional Vitals: Temp Pulse Resp BP Pulse Ox 98.2 F 83 11 L 85/47 100 08/27/19 03:39 08/27/19 06:00 08/27/19 06:00 08/27/19 06:00 08/27/19 06:00 General appearance: Present: no acute distress, well-nourished - EENT Eyes: Present: PERRL ENT: hearing intact - Neck Neck: Present: supple - Respiratory Respiratory effort: normal Respiratory: bilateral: diminished, rales (bases) Results - Labs CBC & Chem 7: 08/27/19 04:37 08/27/19 04:37 Labs: Abnormal lab results 08/26/19 08/26/19 08/26/19 Range/Units 07:40 13:44 16:43 WBC 4.2 L (4.5-11.0) K/mm3 RBC 3.00 L (3.65-5.03) M/mm3 Hgb 7.9 L (11.8-15.2) gm/dl Hct 24.8 L (35.5-45.6) % MCV 83 L (84-94) fl MCH 26 L (28-32) pg RDW 24.1 H (13.2-15.2) % Lymph % (Auto) (13.4-35.0) % [place] % (Auto) (0.0-7.3) % Lymph # (1.2-5.4) K/mm3 Seg Neuts % (Manual) 75.0 H (40.0-70.0) % Lymphocytes # (Manual) 0.7 L (1.2-5.4) K/mm3 PT (12.2-14.9) Sec. INR (0.87-1.13) APTT (24.2-36.6) Sec. Sodium (137-145) mmol/L Chloride (98-107) mmol/L BUN (9-20) mg/dL Creatinine (0.8-1.5) mg/dL Glucose (75-100) mg/dL POC Glucose 132 H 177 H (70-105) 08/26/19 08/27/19 08/27/19 Range/Units 23:50 00:13 04:37 WBC (4.5-11.0) K/mm3 RBC 3.44 L (3.65-5.03) M/mm3 Hgb 9.3 L (11.8-15.2) gm/dl Hct 28.6 L (35.5-45.6) % MCV 83 L (84-94) fl MCH 27 L (28-32) pg RDW 24.2 H (13.2-15.2) % Lymph % (Auto) 11.6 L (13.4-35.0) % [place] % (Auto) 14.3 H (0.0-7.3) % Lymph # 0.5 L (1.2-5.4) K/mm3 Seg Neuts % (Manual) (40.0-70.0) % Lymphocytes # (Manual) (1.2-5.4) K/mm3 PT 16.0 H (12.2-14.9) Sec. INR 1.27 H (0.87-1.13) APTT 37.2 H (24.2-36.6) Sec. Sodium (137-145) mmol/L Chloride (98-107) mmol/L BUN (9-20) mg/dL Creatinine (0.8-1.5) mg/dL Glucose (75-100) mg/dL POC Glucose 169 H (70-105) 08/27/19 08/27/19 Range/Units 04:37 05:59 WBC (4.5-11.0) K/mm3 RBC (3.65-5.03) M/mm3 Hgb (11.8-15.2) gm/dl Hct (35.5-45.6) % MCV (84-94) fl MCH (28-32) pg RDW (13.2-15.2) % Lymph % (Auto) (13.4-35.0) % [place] % (Auto) (0.0-7.3) % Lymph # (1.2-5.4) K/mm3 Seg Neuts % (Manual) (40.0-70.0) % Lymphocytes # (Manual) (1.2-5.4) K/mm3 PT (12.2-14.9) Sec. INR (0.87-1.13) APTT (24.2-36.6) Sec. Sodium 134 L (137-145) mmol/L Chloride 93.6 L (98-107) mmol/L BUN 39 H (9-20) mg/dL Creatinine 4.7 H (0.8-1.5) mg/dL Glucose 118 H (75-100) mg/dL POC Glucose 186 H (70-105) - Imaging and Cardiology Chest x-ray: image reviewed Assessment and Plan 74 y/o COVID positive patient with massive ascities, s/p paracentesis large volume now with hypotension, but normal mental status. 1. Likely secondary to fluid shifts, doubt new onset infection. Suggest more albumin therapy, scheduled at q8 hours for the next 24-32 hours. Will also change levophed to vasopressin as patient maybe in hepatorenal syndrome. would hold off on fluid boluses for now 2. Needs abdominal ultrasound to evaluate liver 3. Wean Vasopressor therapy for MAPS 60 and greater. Suspect underlying liver disease and patient likely does not live with MAPS > than this. His mental state has not changed despite these drops in pressures. CCT 31 minutes.
[2019-08-27] MEDS: FUROSEMIDE 40 MG TAB PO SCH (12:00)
[2019-08-27] MEDS: VASOPRESSIN 20 UNIT in SODIUM CHLORIDE 0.9% 100 ML IV SCH ×2 (12:19→22:37)
[2019-08-27] MEDS: ALBUMIN HUMAN 25% (25 GM/100 ML) INJ IV SCH ×2 (14:30→21:53)
[2019-08-27] MEDS: LATANOPROST 0.005% OPHTH SOLN 2.5 ML OU SCH ×2 (16:16→21:53)
[2019-08-28] MEDS: ALBUMIN HUMAN 25% (25 GM/100 ML) INJ IV SCH ×3 (05:56→21:45)
[2019-08-28 06:05] LABS: Albumin 3.1 g/dL (3.9-5); Calcium 7.9 mg/dL (8.4-10.2)
[2019-08-28] MEDS ORDERED: MIDODRINE 5 MG TAB PO SCH (08:00)
[2019-08-28] MEDS: TRIAMCINOLONE 0.1% CREAM 15 GM TP SCH ×3 (08:33→21:53)
[2019-08-28] MEDS: INSULIN LISPRO 100 UNIT/ML SUB-Q SCH ×4 (08:33→22:19)
--- NOTE | 2019-08-28 08:33 | Progress Note ---
Assessment and Plan Assessment and plan: --Hypotension/shock: Requiring vasopressors On vasopressin, Midodrin unlikely septic as patient has no fever no leukocytosis no source of infection Patient had large volume paracentesis,removal of 7.7 L peritoneal fluid. --Severe hypoalbuminemia; receiving IV albumin Slight improvement in albumin level --Massive ascites; s/p abdominal paracentesis removal of 7.7 L peritoneal fluid Follow fluid analysis, fluid restriction, Lasix --Positive COVID-19; Droplet and contact isolation Supportive care --End-stage renal disease; on hemodialysis HD per schedule, nephrology consulted --Chronic systolic congestive heart failure; EF 40% Continue heart failure medications --Type 2 diabetes mellitus/upper glycemia HbA1c 5.1, Accu-Chek sliding scale coverage --Peripheral neuropathy; on gabapentin --h/o [place] BKA: Supportive care --History of BPH; continue tamsulosin DVT prophylaxis; SCD, heparin renal dose Monitor closely and adjust management as needed Critical care time 32 minutes History Interval history: Patient seen and examined at bedside Patient's chart and medications reviewed Patient remains on vasopressin and midodrine Patient feels slightly better Complains of leg cramps Vital signs reviewed Hospitalist Physical - Constitutional Vitals: Temp Pulse Resp BP Pulse Ox 98.4 F 73 12 110/54 99 08/28/19 03:23 08/28/19 06:45 08/28/19 06:45 08/28/19 06:45 08/28/19 04:00 General appearance: Present: no acute distress, well-nourished - EENT Eyes: Present: PERRL, EOM intact - Neck Neck: Present: supple, normal ROM - Respiratory Respiratory effort: normal Respiratory: bilateral: diminished, rales, negative: rhonchi, wheezing - Cardiovascular Rhythm: regular Heart Sounds: Present: S1 & S2 - Extremities Extremities: no ischemia, abnormal (Bilateral BKA) - Abdominal General gastrointestinal: soft, non-tender, non-distended, normal bowel sounds - Integumentary Integumentary: Present: clear, warm - Psychiatric Psychiatric: appropriate mood/affect, cooperative - Neurologic Neurologic: moves all extremities Results - Labs CBC & Chem 7: 08/27/19 04:37 08/28/19 04:52 Labs: Laboratory Last Values WBC 4.6 K/mm3 (4.5-11.0) 08/27/19 04:37 RBC 3.44 M/mm3 (3.65-5.03) L 08/27/19 04:37 Hgb 9.3 gm/dl (11.8-15.2) L 08/27/19 04:37 Hct 28.6 % (35.5-45.6) L 08/27/19 04:37 MCV 83 fl (84-94) L 08/27/19 04:37 MCH 27 pg (28-32) L 08/27/19 04:37 MCHC 33 % (32-34) 08/27/19 04:37 RDW 24.2 % (13.2-15.2) H 08/27/19 04:37 Plt Count 144 K/mm3 (140-440) 08/27/19 04:37 Lymph % (Auto) 11.6 % (13.4-35.0) L 08/27/19 04:37 [place] % (Auto) 14.3 % (0.0-7.3) H 08/27/19 04:37 Eos % (Auto) 3.5 % (0.0-4.3) 08/27/19 04:37 Baso % (Auto) 1.5 % (0.0-1.8) 08/27/19 04:37 Lymph # 0.5 K/mm3 (1.2-5.4) L 08/27/19 04:37 [place] # 0.7 K/mm3 (0.0-0.8) 08/27/19 04:37 Eos # 0.2 K/mm3 (0.0-0.4) 08/27/19 04:37 Baso # 0.1 K/mm3 (0.0-0.1) 08/27/19 04:37 Add Manual Diff Complete 08/26/19 07:40 Total Counted 100 08/26/19 07:40 Seg Neutrophils % 69.1 % (40.0-70.0) 08/27/19 04:37 Seg Neuts % (Manual) 75.0 % (40.0-70.0) H 08/26/19 07:40 Band Neutrophils % 1.0 % 08/26/19 07:40 Lymphocytes % (Manual) 16.0 % (13.4-35.0) 08/26/19 07:40 Reactive Lymphs % (Man) 0 % 08/26/19 07:40 Monocytes % (Manual) 4.0 % (0.0-7.3) 08/26/19 07:40 Eosinophils % (Manual) 4.0 % (0.0-4.3) 08/26/19 07:40 Basophils % (Manual) 0 % (0.0-1.8) 08/26/19 07:40 Metamyelocytes % 0 % 08/26/19 07:40 Myelocytes % 0 % 08/26/19 07:40 Promyelocytes % 0 % 08/26/19 07:40 Blast Cells % 0 % 08/26/19 07:40 Nucleated RBC % Not Reportable 08/26/19 07:40 Seg Neutrophils # 3.1 K/mm3 (1.8-7.7) 08/27/19 04:37 Seg Neutrophils # Man 3.2 K/mm3 (1.8-7.7) 08/26/19 07:40 Band Neutrophils # 0.0 K/mm3 08/26/19 07:40 Lymphocytes # (Manual) 0.7 K/mm3 (1.2-5.4) L 08/26/19 07:40 Abs React Lymphs (Man) 0.0 K/mm3 08/26/19 07:40 Monocytes # (Manual) 0.2 K/mm3 (0.0-0.8) 08/26/19 07:40 Eosinophils # (Manual) 0.2 K/mm3 (0.0-0.4) 08/26/19 07:40 Basophils # (Manual) 0.0 K/mm3 (0.0-0.1) 08/26/19 07:40 Metamyelocytes # 0.0 K/mm3 08/26/19 07:40 Myelocytes # 0.0 K/mm3 08/26/19 07:40 Promyelocytes # 0.0 K/mm3 08/26/19 07:40 Blast Cells # 0.0 K/mm3 08/26/19 07:40 WBC Morphology Not Reportable 08/26/19 07:40 Hypersegmented Neuts Not Reportable 08/26/19 07:40 Hyposegmented Neuts Not Reportable 08/26/19 07:40 Hypogranular Neuts Not Reportable 08/26/19 07:40 Smudge Cells Not Reportable 08/26/19 07:40 Toxic Granulation Not Reportable 08/26/19 07:40 Toxic Vacuolation Not Reportable 08/26/19 07:40 Dohle Bodies Not Reportable 08/26/19 07:40 Pelger-Huet Anomaly Not Reportable 08/26/19 07:40 Shola Rods Not Reportable 08/26/19 07:40 Platelet Estimate Not Reportable 08/26/19 07:40 Clumped Platelets Not Reportable 08/26/19 07:40 Plt Clumps, EDTA Not Reportable 08/26/19 07:40 Large Platelets Not Reportable 08/26/19 07:40 Giant Platelets Not Reportable 08/26/19 07:40 Platelet Satelliting Not Reportable 08/26/19 07:40 Plt Morphology Comment Not Reportable 08/26/19 07:40 RBC Morphology Not Reportable 08/26/19 07:40 Dimorphic RBCs Not Reportable 08/26/19 07:40 Polychromasia Not Reportable 08/26/19 07:40 Hypochromasia 2+ 08/26/19 07:40 Poikilocytosis Not Reportable 08/26/19 07:40 Anisocytosis 2+ 08/26/19 07:40 Microcytosis Not Reportable 08/26/19 07:40 Macrocytosis Not Reportable 08/26/19 07:40 Spherocytes Not Reportable 08/26/19 07:40 Pappenheimer Bodies Not Reportable 08/26/19 07:40 Sickle Cells Not Reportable 08/26/19 07:40 Target Cells Few 08/26/19 07:40 Tear Drop Cells Not Reportable 08/26/19 07:40 Ovalocytes Not Reportable 08/26/19 07:40 Helmet Cells Not Reportable 08/26/19 07:40 [place] Bodies Not Reportable 08/26/19 07:40 [place] Rings Not Reportable 08/26/19 07:40 Janny Cells Not Reportable 08/26/19 07:40 Bite Cells Not Reportable 08/26/19 07:40 Crenated Cell Not Reportable 08/26/19 07:40 Elliptocytes Not Reportable 08/26/19 07:40 Acanthocytes (Spur) Not Reportable 08/26/19 07:40 Rouleaux Not Reportable 08/26/19 07:40 Hemoglobin C Crystals Not Reportable 08/26/19 07:40 Schistocytes Not Reportable 08/26/19 07:40 Malaria parasites Not Reportable 08/26/19 07:40 Wero Bodies Not Reportable 08/26/19 07:40 Hem Pathologist Commnt C 08/26/19 07:40 PT 16.0 Sec. (12.2-14.9) H 08/26/19 23:50 INR 1.27 (0.87-1.13) H 08/26/19 23:50 APTT 37.2 Sec. (24.2-36.6) H 08/26/19 23:50 Sodium 135 mmol/L (137-145) L 08/28/19 04:52 Potassium 4.6 mmol/L (3.6-5.0) 08/28/19 04:52 Chloride 94.7 mmol/L (98-107) L 08/28/19 04:52 Carbon Dioxide 29 mmol/L (22-30) 08/28/19 04:52 Anion Gap 16 mmol/L 08/28/19 04:52 BUN 27 mg/dL (9-20) H 08/28/19 04:52 Creatinine 3.5 mg/dL (0.8-1.5) H 08/28/19 04:52 Estimated GFR 21 ml/min 08/28/19 04:52 BUN/Creatinine Ratio 8 % 08/28/19 04:52 Glucose 148 mg/dL (75-100) H 08/28/19 04:52 POC Glucose 79 (70-105) 08/27/19 21:38 Hemoglobin A1c 5.1 % (4-6) 08/25/19 13:46 Calcium 7.9 mg/dL (8.4-10.2) L 08/28/19 04:52 Magnesium 1.90 mg/dL (1.7-2.3) 08/28/19 04:52 Total Bilirubin 0.30 mg/dL (0.1-1.2) 08/28/19 04:52 AST 16 units/L (5-40) 08/28/19 04:52 ALT 14 units/L (7-56) 08/28/19 04:52 Alkaline Phosphatase 128 units/L (35-129) 08/28/19 04:52 Total Protein 7.2 g/dL (6.3-8.2) 08/28/19 04:52 Albumin 3.1 g/dL (3.9-5) L 08/28/19 04:52 Albumin/Globulin Ratio 0.8 % 08/28/19 04:52 Fluid Type Ascitic 08/25/19 Unknown Fluid Color Yellow 08/25/19 Unknown Fluid Appearance Hazy 08/25/19 Unknown Fluid WBC 196 /mm3 08/25/19 Unknown Fluid RBC 99 /mm3 08/25/19 Unknown Fluid Seg Neutrophils 2.0 % 08/25/19 Unknown Fluid Lymphocytes 17.0 % 08/25/19 Unknown Fluid Reactive Lymphs 0 % 08/25/19 Unknown Fluid Monocytes 71.0 % 08/25/19 Unknown Fluid Eosinophils 10.0 % 08/25/19 Unknown Fluid Basophils 0 % 08/25/19 Unknown Coronavirus (PCR) Positive (Negative) A 08/27/19 09:07 [place]/IV: IV Catheter Type [Right INT / Saline Lock Forearm] IV Catheter Type [Left Upper AV fistula arm] Active Medications - Current Medications Current Medications: Generic Name Dose Route Start Last Admin Trade Name Freq PRN Reason Stop Dose Admin Acetaminophen 650 mg 08/25/19 22:14 Tylenol PO Q4H PRN Pain MILD(1-3)/Fever >100.5/GARCIA Albumin Human 25 gm 08/27/19 14:00 08/28/19 05:56 Alburx 25% (Albumin) IV 25 gm Q8HR ROBB Administration Aspirin 81 mg 08/27/19 10:00 08/27/19 10:30 Halfprin Ec PO 81 mg QDAY [facility] Administration Atorvastatin Calcium 40 mg 08/26/19 10:00 08/27/19 10:00 Lipitor PO 40 mg DAILY [facility] Administration Bisacodyl 10 mg 08/25/19 22:11 Dulcolax PO DAILY PRN Constipation Cinacalcet 30 mg 08/26/19 10:00 08/27/19 21:52 Sensipar PO 30 mg BID [facility] Administration Clopidogrel Bisulfate 75 mg 08/27/19 10:00 08/27/19 10:19 Plavix PO 75 mg QDAY [facility] Administration Epoetin Francisco 10,000 unit 08/26/19 19:29 08/27/19 13:30 Procrit IV 10,000 unit SHY PRN Administration hemodialysis Fluconazole 200 mg 08/26/19 22:00 08/27/19 10:30 Diflucan PO 200 mg QDAY [facility] Administration Gabapentin 300 mg 08/27/19 22:00 08/27/19 21:52 Gabapentin PO 300 mg QHS [facility] Administration Hydromorphone HCl 0.5 mg 08/25/19 22:14 08/26/19 22:02 Dilaudid IV 0.5 mg Q3H PRN Administration Pain , Severe (7-10) Sodium Chloride 100 mls @ 999 mls/hr 08/26/19 19:29 Nacl 0.9% IV SHY PRN Hypotension Norepinephrine 4 mg in 250 mls @ 7.5 mls/hr 08/26/19 21:00 08/27/19 17:30 Levophed Drip 4 Mg/Ns 250 Ml IV 0 mcg/min TITR ROBB 0 mls/hr Titration Protocol 2 MCG/MIN Vasopressin 20 unit/ Sodium 101 mls @ 9.09 mls/hr 08/27/19 12:00 08/27/19 22:37 Chloride IV 0.03 units/min TITR [facility] 9.09 mls/hr Administration Protocol 0.03 UNITS/MIN Insulin Human Lispro 0 unit 08/26/19 07:30 08/27/19 22:20 Humalog SUB-Q Not Given ACHS [facility] Protocol Latanoprost 1 drops 08/26/19 22:00 08/27/19 21:53 Latanoprost 0.005% OU Not Given QHS [facility] Metoclopramide HCl 5 mg 08/25/19 22:14 Reglan IV Q6H PRN Nausea And Vomiting Midodrine 5 mg 08/28/19 08:00 Proamatine PO TID@0800,1200,1600 [facility] Miscellaneous Medication 1 unit 08/25/19 22:11 Amlactin Foot Cream TP PRN PRN Rash Miscellaneous Medication 1 drop 08/26/19 10:00 Dorzolamide Hcl/Timolol Maleat [Cosopt Eye Drops] OP DAILY [facility] Miscellaneous Medication 1 drop 08/26/19 10:00 Simbrinza 1%-0.2% Eye Drops OP DAILY [facility] Ondansetron HCl 4 mg 08/25/19 22:14 Zofran IV Q8H PRN Nausea And Vomiting Oxycodone/Acetaminophen 1 tab 08/25/19 22:14 08/27/19 18:13 Percocet 5/325 PO 1 tab Q6H PRN Administration Pain, Moderate (4-6) Pantoprazole Sodium 20 mg 08/26/19 10:00 08/27/19 10:35 Protonix PO 20 mg QAM [facility] Administration Sevelamer Carbonate 800 mg 08/25/19 23:00 08/27/19 17:30 Renvela PO 800 mg BID@0800,1700 [facility] Administration Sodium Chloride 10 ml 08/25/19 23:00 08/27/19 21:52 Sodium Chloride Flush Syringe 10 Ml IV 10 ml BID [facility] Administration Sodium Chloride 10 ml 08/25/19 22:14 Sodium Chloride Flush Syringe 10 Ml IV PRN PRN LINE FLUSH Tamsulosin HCl 0.4 mg 08/25/19 23:00 08/27/19 21:52 Flomax PO 0.4 mg BID [facility] Administration Temazepam 30 mg 08/26/19 10:00 08/27/19 10:18 Restoril PO 30 mg DAILY [facility] Administration Triamcinolone Acetonide 1 applic 08/26/19 08:00 08/27/19 21:52 Kenalog TP 1 applic TID [facility] Administration
[2019-08-28] MEDS: ASPIRIN EC 81 MG TAB PO SCH (09:13)
[2019-08-28] MEDS: FLUCONAZOLE 200 MG TAB PO SCH (09:13)
[2019-08-28] MEDS: CLOPIDOGREL 75 MG TAB PO SCH (09:14)
[2019-08-28] MEDS: TEMAZEPAM 15 MG CAP PO SCH (09:14)
[2019-08-28] MEDS: PANTOPRAZOLE 20 MG TAB PO SCH (09:15)
[2019-08-28] MEDS: CINACALCET 30 MG TAB PO SCH ×2 (09:15→21:45)
[2019-08-28] MEDS: SEVELAMER CARBONATE 800 MG TAB PO SCH ×2 (09:15→17:05)
[2019-08-28] MEDS: TAMSULOSIN 0.4 MG CAP PO SCH ×2 (09:15→21:45)
[2019-08-28] MEDS: oxyCODONE /ACETAMINOPHEN 5-325MG TAB PO PRN ×2 (09:18→22:20)
--- NOTE | 2019-08-28 10:50 | Progress Note ---
Assessment and Plan 74 y/o COVID positive patient with massive ascities, s/p paracentesis large volume now with hypotension, but normal mental status. 1. Vasopressin would be the preferred choice for vasopressor therapy in this patient given his liver disease. I have increased his midodrine to 10 TID hoping to wean him off of pressor therapy. 2. Needs abdominal ultrasound to evaluate liver 3. Wean Vasopressor therapy for MAPS 60 and greater. Suspect underlying liver disease and patient likely does not live with MAPS > than this. His mental stat e has not changed despite these drops in pressures. CCT 31 minutes. Subjective Date of service: 08/28/19 Interval history: No acute events. Weaned off pressors. Started on Midodrine by Renal. But then nursing had to restart levophed. Did get midodrine this am. Mental status is stable. Objective - Constitutional Vitals: Vital Signs - 12hr 08/27/19 08/27/19 08/27/19 23:00 23:12 23:15 Temperature 98.4 F Pulse Rate 75 67 Pulse Rate [ From Monitor] Respiratory 20 11 L Rate Blood Pressure 109/52 101/53 O2 Sat by Pulse 100 Oximetry 08/27/19 08/27/19 08/28/19 23:30 23:45 00:00 Temperature Pulse Rate 72 76 76 Pulse Rate [ From Monitor] Respiratory 12 14 11 L Rate Blood Pressure 100/53 102/54 111/59 O2 Sat by Pulse 100 100 96 Oximetry 08/28/19 08/28/19 08/28/19 00:12 00:15 00:30 Temperature Pulse Rate 76 75 Pulse Rate [ 76 From Monitor] Respiratory 14 12 11 L Rate Blood Pressure 94/48 101/48 O2 Sat by Pulse 99 100 100 Oximetry 08/28/19 08/28/19 08/28/19 00:45 01:00 01:16 Temperature Pulse Rate 77 75 75 Pulse Rate [ From Monitor] Respiratory 16 12 12 Rate Blood Pressure 116/53 104/56 113/60 O2 Sat by Pulse 100 100 100 Oximetry 08/28/19 08/28/19 08/28/19 01:30 01:46 02:00 Temperature Pulse Rate 77 75 74 Pulse Rate [ From Monitor] Respiratory 13 12 11 L Rate Blood Pressure 116/50 91/49 93/54 O2 Sat by Pulse 100 99 99 Oximetry 08/28/19 08/28/1908/27/20 02:15 02:30 02:45 Temperature Pulse Rate 74 74 74 Pulse Rate [ From Monitor] Respiratory 12 14 16 Rate Blood Pressure 93/54 103/54 102/61 O2 Sat by Pulse 100 100 100 Oximetry 08/28/19 08/28/19 08/28/19 03:00 03:16 03:23 Temperature 98.4 F Pulse Rate 75 74 Pulse Rate [ From Monitor] Respiratory 12 11 L Rate Blood Pressure 89/51 95/50 O2 Sat by Pulse 100 99 Oximetry 08/28/19 08/28/19 08/28/19 03:30 03:45 04:00 Temperature Pulse Rate 75 75 75 Pulse Rate [ 76 From Monitor] Respiratory 13 15 13 Rate Blood Pressure 99/56 103/55 100/58 O2 Sat by Pulse 100 99 Oximetry 08/28/19 08/28/19 08/28/19 04:15 04:30 04:45 Temperature Pulse Rate 76 75 73 Pulse Rate [ From Monitor] Respiratory 17 15 13 Rate Blood Pressure 102/52 96/53 107/58 O2 Sat by Pulse Oximetry 08/28/19 08/28/19 08/28/19 05:00 05:15 05:30 Temperature Pulse Rate 74 75 74 Pulse Rate [ From Monitor] Respiratory 12 11 L 15 Rate Blood Pressure 99/53 105/57 100/50 O2 Sat by Pulse Oximetry 08/28/19 08/28/19 08/28/19 05:45 06:00 06:15 Temperature Pulse Rate 75 73 75 Pulse Rate [ From Monitor] Respiratory 11 L 12 14 Rate Blood Pressure 103/54 106/55 107/54 O2 Sat by Pulse Oximetry 08/28/19 08/28/19 08/28/19 06:30 06:45 07:00 Temperature Pulse Rate 75 73 73 Pulse Rate [ From Monitor] Respiratory 16 12 11 L Rate Blood Pressure 114/57 110/54 101/53 O2 Sat by Pulse Oximetry 08/28/19 08/28/19 08/28/19 07:15 07:30 07:45 Temperature Pulse Rate 75 76 68 Pulse Rate [ From Monitor] Respiratory 15 18 9 L Rate Blood Pressure 107/57 108/57 102/51 O2 Sat by Pulse Oximetry 08/28/19 08/28/19 08/28/19 08:00 08:15 08:30 Temperature 97.7 F Pulse Rate 72 71 76 Pulse Rate [ 72 From Monitor] Respiratory 15 13 14 Rate Blood Pressure 101/59 103/52 113/61 O2 Sat by Pulse Oximetry 08/28/19 08/28/19 08/28/19 08:46 09:00 09:15 Temperature Pulse Rate 77 75 76 Pulse Rate [ From Monitor] Respiratory 12 14 14 Rate Blood Pressure 113/61 109/68 125/59 O2 Sat by Pulse Oximetry 08/28/19 08/28/19 08/28/19 09:30 09:45 10:00 Temperature Pulse Rate 75 74 75 Pulse Rate [ From Monitor] Respiratory 13 12 14 Rate Blood Pressure 122/61 104/59 104/59 O2 Sat by Pulse Oximetry 08/28/19 10:15 Temperature Pulse Rate 77 Pulse Rate [ From Monitor] Respiratory 29 H Rate Blood Pressure 101/61 O2 Sat by Pulse Oximetry - Labs CBC & Chem 7: 08/27/19 04:37 08/28/19 04:52 Labs: Abnormal lab results 08/27/19 08/27/19 08/27/19 Range/Units 09:07 11:42 18:00 Sodium (137-145) mmol/L Chloride (98-107) mmol/L BUN (9-20) mg/dL Creatinine (0.8-1.5) mg/dL Glucose (75-100) mg/dL POC Glucose 197 H 144 H (70-105) Calcium (8.4-10.2) mg/dL Albumin (3.9-5) g/dL Coronavirus (PCR) Positive A (Negative) 08/28/19 08/28/19 Range/Units 04:52 08:17 Sodium 135 L (137-145) mmol/L Chloride 94.7 L (98-107) mmol/L BUN 27 H (9-20) mg/dL Creatinine 3.5 H (0.8-1.5) mg/dL Glucose 148 H (75-100) mg/dL POC Glucose 211 H (70-105) Calcium 7.9 L (8.4-10.2) mg/dL Albumin 3.1 L (3.9-5) g/dL Coronavirus (PCR) (Negative) Medications & Allergies - Medications Allergies/Adverse Reactions: Allergies No Known Allergies Allergy (Verified 11/06/17 12:21) Home Medications: Home Medications Medication Instructions Recorded Confirmed Last Taken Type Aspirin EC [Halfprin EC] 81 mg PO QDAY 11/06/17 08/25/19 02/21/18 History AtorvaSTATin [Lipitor] 40 mg PO DAILY 11/06/17 08/25/19 02/21/18 History Gabapentin 300 mg PO TID 11/06/17 08/25/19 02/21/18 History Metoprolol [Lopressor TAB] 25 mg PO DAILY MDD BLOOD PRESSURE 11/06/17 08/25/19 02/21/18 History cloNIDine [Catapres] 0.1 mg PO DAILY 11/06/17 08/25/19 02/21/18 History Cinacalcet [Sensipar] 30 mg PO BID 02/21/18 08/25/19 02/21/18 History Furosemide [Lasix TAB] 80 mg PO BID 02/21/18 08/25/19 02/21/18 History Tamsulosin HCl [Flomax] 0.4 mg PO BID 02/21/18 08/25/19 02/21/18 History Temazepam [Restoril] 30 mg PO DAILY 02/21/18 08/25/19 02/21/18 History Triamcinolone 0.1% [Kenalog 0.1% 1 applic TP TID 02/21/18 08/25/19 02/21/18 History CREAM] Dorzolamide HCl/Timolol Maleat 1 drop OP DAILY 07/16/18 08/25/19 Unknown History [Cosopt Eye Drops] Clopidogrel [Plavix] 75 mg PO QDAY tablet 12/08/18 08/25/19 Unknown Rx Amlactin Foot Cream 1 unit TP PRN PRN 08/25/19 08/25/19 Unknown History Fluconazole [Diflucan TAB] 200 mg PO QDAY 08/25/19 08/25/19 Unknown History Ipratropium/Albuterol Sulfate 4 gm IH PRN PRN 08/25/19 08/25/19 Unknown History [Combivent Respimat Inhal [place]] Lispro Insulin [HumaLOG] See Protocol SQ AC 08/25/19 08/25/19 Unknown History Nitroglycerin [Nitrostat] 1 tab SUBLINGUAL PRN PRN 08/25/19 08/25/19 Unknown History Omeprazole 20 mg PO DAILY 08/25/19 08/25/19 Unknown History Sacubitril/Valsartan [Entresto 24 1 each PO BID 08/25/19 08/25/19 Unknown History - 26 mg] Sevelamer Carbonate [Renvela] 800 mg PO BIDWM 08/25/19 08/25/19 Unknown History Simbrinza 1%-0.2% Eye Drops 1 drop OP DAILY 08/25/19 08/25/19 Unknown History Tamsulosin [Flomax] 1 cap PO BID 08/25/19 08/25/19 Unknown History Travoprost 2.5 ml OP DAILY 08/25/19 08/25/19 Unknown History bisacodyL [Dulcolax] 10 mg PO DAILY PRN 08/25/19 08/25/19 Unknown History oxyCODONE /ACETAMINOPHEN [Percocet 1 tab PO Q4HR PRN 08/25/19 08/25/19 Unknown History 5/325] Active Medications: Generic Name Dose Route Start Last Admin Trade Name Freq PRN Reason Stop Dose Admin Acetaminophen 650 mg 08/25/19 22:14 Tylenol PO Q4H PRN Pain MILD(1-3)/Fever >100.5/GARCIA Albumin Human 25 gm 08/27/19 14:00 08/28/19 05:56 Alburx 25% (Albumin) IV 25 gm Q8HR ROBB Administration Aspirin 81 mg 08/27/19 10:00 08/28/19 09:13 Halfprin Ec PO 81 mg QDAY ROBB Administration Atorvastatin Calcium 40 mg 08/26/19 10:00 08/28/19 09:14 Lipitor PO 40 mg DAILY ROBB Administration Bisacodyl 10 mg 08/25/19 22:11 08/28/19 09:25 Dulcolax PO 10 mg DAILY PRN Administration Constipation Cinacalcet 30 mg 08/26/19 10:00 08/28/19 09:15 Sensipar PO 30 mg BID ROBB Administration Clopidogrel Bisulfate 75 mg 08/27/19 10:00 08/28/19 09:14 Plavix PO 75 mg QDAY ROBB Administration Epoetin [place] 10,000 unit 08/26/19 19:29 08/27/19 13:30 Procrit IV 10,000 unit SHY PRN Administration hemodialysis Fluconazole 200 mg 08/26/19 22:00 08/28/19 09:13 Diflucan PO 200 mg QDAY ROBB Administration Gabapentin 300 mg 08/27/19 22:00 08/27/19 21:52 Gabapentin PO 300 mg QHS [facility] Administration Hydromorphone HCl 0.5 mg 08/25/19 22:14 08/26/19 22:02 Dilaudid IV 0.5 mg Q3H PRN Administration Pain , Severe (7-10) Sodium Chloride 100 mls @ 999 mls/hr 08/26/19 19:29 Nacl 0.9% IV SHY PRN Hypotension Norepinephrine 4 mg in 250 mls @ 7.5 mls/hr 08/26/19 21:00 08/27/19 17:30 Levophed Drip 4 Mg/Ns 250 Ml IV 0 mcg/min TITR ROBB 0 mls/hr Titration Protocol 2 MCG/MIN Vasopressin 20 unit/ Sodium 101 mls @ 9.09 mls/hr 08/27/19 12:00 08/27/19 22:37 Chloride IV 0.03 units/min TITR ROBB 9.09 mls/hr Administration Protocol 0.03 UNITS/MIN Insulin Human Lispro 0 unit 08/26/19 07:30 08/28/19 08:33 Humalog SUB-Q 3 unit ACHS [facility] Administration Protocol Latanoprost 1 drops 08/26/19 22:00 08/27/19 21:53 Latanoprost 0.005% OU Not Given QHS [facility] Metoclopramide HCl 5 mg 08/25/19 22:14 Reglan IV Q6H PRN Nausea And Vomiting Midodrine 5 mg 08/28/19 08:00 08/28/19 08:32 Proamatine PO 5 mg TID@0800,1200,1600 [facility] Administration Miscellaneous Medication 1 unit 08/25/19 22:11 Amlactin Foot Cream TP PRN PRN Rash Miscellaneous Medication 1 drop 08/26/19 10:00 Dorzolamide Hcl/Timolol Maleat [Cosopt Eye Drops] OP DAILY [facility] Miscellaneous Medication 1 drop 08/26/19 10:00 Simbrinza 1%-0.2% Eye Drops OP DAILY [facility] Ondansetron HCl 4 mg 08/25/19 22:14 Zofran IV Q8H PRN Nausea And Vomiting Oxycodone/Acetaminophen 1 tab 08/25/19 22:14 08/28/19 09:18 Percocet 5/325 PO 1 tab Q6H PRN Administration Pain, Moderate (4-6) Pantoprazole Sodium 20 mg 08/26/19 10:00 08/28/19 09:15 Protonix PO 20 mg QAM ROBB Administration Sevelamer Carbonate 800 mg 08/25/19 23:00 08/28/19 09:15 Renvela PO 800 mg BID@0800,1700 ROBB Administration Sodium Chloride 10 ml 08/25/19 23:00 08/28/19 09:16 Sodium Chloride Flush Syringe 10 Ml IV 10 ml BID ROBB Administration Sodium Chloride 10 ml 08/25/19 22:14 Sodium Chloride Flush Syringe 10 Ml IV PRN PRN LINE FLUSH Tamsulosin HCl 0.4 mg 08/25/19 23:00 08/28/19 09:15 Flomax PO 0.4 mg BID ROBB Administration Temazepam 30 mg 08/26/19 10:00 08/28/19 09:14 Restoril PO 30 mg DAILY ROBB Administration Triamcinolone Acetonide 1 applic 08/26/19 08:00 08/28/19 08:33 Kenalog TP 1 applic TID ROBB Administration
[2019-08-28] MEDS: VASOPRESSIN 20 UNIT in SODIUM CHLORIDE 0.9% 100 ML IV SCH ×2 (11:02→22:21)
[2019-08-28] MEDS ORDERED: MIDODRINE 5 MG TAB PO ONE (11:50)
--- NOTE | 2019-08-28 12:56 | Progress Note ---
Assessment and Plan - Patient Problems (1) ESRD (end stage renal disease) on dialysis Current Visit: No Status: Chronic Plan to address problem: Maintain on inpatient MWF HD schedule. Assess daily for needs of sequential UF treatments. No acute HD needs today. (2) Ascites Current Visit: No Status: Acute Plan to address problem: S/P paracentesis with removal of >7L. Need to arrange for outpatient paracentesis every 2-4 weeks as clinically necessary. (3) COVID-19 virus detected Current Visit: Yes Status: Chronic Plan to address problem: Continues on appropriate droplet precautions. (4) Hypotension Current Visit: Yes Status: Acute Plan to address problem: Plan to further wean the vasopressin. Midodrine increased to 10 mg TID. (5) Anemia in chronic kidney disease (CKD) Current Visit: Yes Status: Acute Qualifiers: Chronic kidney disease stage: on chronic dialysis Qualified Code(s): N18.6 - End stage renal disease; D63.1 - Anemia in chronic kidney disease; Z99.2 - Dependence on renal dialysis Plan to address problem: TEENA with HD therapy. Subjective Date of service: 08/28/19 Interval history: Patient remains on vasopressin, his midodrine increased to 10 mg TID. He states that his shortness of breath has improved significantly. S/P paracentesis with removal of > 7L. He also received HD yesterday with removal of 1.5L. Remains in ICU as we are attempting to wean down his pressor requirements. Objective - Vital Signs Vital signs: Vital Signs - 12hr 08/28/19 08/28/19 08/28/19 01:00 01:16 01:30 Temperature Pulse Rate 75 75 77 Pulse Rate [ From Monitor] Respiratory 12 12 13 Rate Blood Pressure 104/56 113/60 116/50 O2 Sat by Pulse 100 100 100 Oximetry 08/28/19 08/28/19 08/28/19 01:46 02:00 02:15 Temperature Pulse Rate 75 74 74 Pulse Rate [ From Monitor] Respiratory 12 11 L 12 Rate Blood Pressure 91/49 93/54 93/54 O2 Sat by Pulse 99 99 100 Oximetry 08/28/19 08/28/19 08/28/19 02:30 02:45 03:00 Temperature Pulse Rate 74 74 75 Pulse Rate [ From Monitor] Respiratory 14 16 12 Rate Blood Pressure 103/54 102/61 89/51 O2 Sat by Pulse 100 100 100 Oximetry 08/28/19 08/28/19 08/28/19 03:16 03:23 03:30 Temperature 98.4 F Pulse Rate 74 75 Pulse Rate [ From Monitor] Respiratory 11 L 13 Rate Blood Pressure 95/50 99/56 O2 Sat by Pulse 99 100 Oximetry 08/28/19 08/28/19 08/28/19 03:45 04:00 04:15 Temperature Pulse Rate 75 75 76 Pulse Rate [ 76 From Monitor] Respiratory 15 13 17 Rate Blood Pressure 103/55 100/58 102/52 O2 Sat by Pulse 99 Oximetry 08/28/19 08/28/19 08/28/19 04:30 04:45 05:00 Temperature Pulse Rate 75 73 74 Pulse Rate [ From Monitor] Respiratory 15 13 12 Rate Blood Pressure 96/53 107/58 99/53 O2 Sat by Pulse Oximetry 08/28/19 08/28/19 08/28/19 05:15 05:30 05:45 Temperature Pulse Rate 75 74 75 Pulse Rate [ From Monitor] Respiratory 11 L 15 11 L Rate Blood Pressure 105/57 100/50 103/54 O2 Sat by Pulse Oximetry 08/28/19 08/28/19 08/28/19 06:00 06:15 06:30 Temperature Pulse Rate 73 75 75 Pulse Rate [ From Monitor] Respiratory 12 14 16 Rate Blood Pressure 106/55 107/54 114/57 O2 Sat by Pulse Oximetry 08/28/19 08/28/19 08/28/19 06:45 07:00 07:15 Temperature Pulse Rate 73 73 75 Pulse Rate [ From Monitor] Respiratory 12 11 L 15 Rate Blood Pressure 110/54 101/53 107/57 O2 Sat by Pulse Oximetry 08/28/19 08/28/19 08/28/19 07:30 07:45 08:00 Temperature 97.7 F Pulse Rate 76 68 72 Pulse Rate [ 72 From Monitor] Respiratory 18 9 L 15 Rate Blood Pressure 108/57 102/51 101/59 O2 Sat by Pulse Oximetry 08/28/19 08/28/19 08/28/19 08:15 08:30 08:46 Temperature Pulse Rate 71 76 77 Pulse Rate [ From Monitor] Respiratory 13 14 12 Rate Blood Pressure 103/52 113/61 113/61 O2 Sat by Pulse Oximetry 08/28/19 08/28/19 08/28/19 09:00 09:15 09:30 Temperature Pulse Rate 75 76 75 Pulse Rate [ From Monitor] Respiratory 14 14 13 Rate Blood Pressure 109/68 125/59 122/61 O2 Sat by Pulse Oximetry 08/28/19 08/28/19 08/28/19 09:45 10:00 10:11 Temperature Pulse Rate 74 75 80 Pulse Rate [ From Monitor] Respiratory 12 14 Rate Blood Pressure 104/59 104/59 O2 Sat by Pulse Oximetry 08/28/19 08/28/19 08/28/19 10:15 10:30 10:46 Temperature Pulse Rate 77 79 77 Pulse Rate [ From Monitor] Respiratory 29 H 19 19 Rate Blood Pressure 101/61 101/61 82/40 O2 Sat by Pulse 100 Oximetry 08/28/19 08/28/19 08/28/19 11:00 11:16 11:30 Temperature Pulse Rate 71 65 73 Pulse Rate [ From Monitor] Respiratory 11 L 14 15 Rate Blood Pressure 81/44 110/68 110/68 O2 Sat by Pulse 82 L Oximetry 08/28/19 08/28/19 11:45 12:00 Temperature 98.4 F Pulse Rate 74 73 Pulse Rate [ 73 From Monitor] Respiratory 11 L 14 Rate Blood Pressure 102/56 100/56 O2 Sat by Pulse 100 100 Oximetry - General Appearance General appearance: appears stated age, chronically ill EENT: ATNC Neck: no JVD Respiratory: Present: Decreased Breath Sounds Cardiology: regular, S1S2 Gastrointestinal: normal Integumentary: no rash Neurologic: no focal deficit, alert and oriented x3 Musculoskeletal: deferred Psychiatric: cooperative - Lab 08/27/19 04:37 08/28/19 04:52 Most recent lab results Calcium 7.9 mg/dL (8.4-10.2) L 08/28/19 04:52 Magnesium 1.90 mg/dL (1.7-2.3) 08/28/19 04:52 - Imaging Chest x-ray: image reviewed - Allied health notes Allied health notes reviewed: nursing Medications & Allergies - Medications Allergies/Adverse Reactions: Allergies No Known Allergies Allergy (Verified 11/06/17 12:21) Home Medications: Home Medications Medication Instructions Recorded Confirmed Last Taken Type Aspirin EC [Halfprin EC] 81 mg PO QDAY 11/06/17 08/25/19 02/21/18 History AtorvaSTATin [Lipitor] 40 mg PO DAILY 11/06/17 08/25/19 02/21/18 History Gabapentin 300 mg PO TID 11/06/17 08/25/19 02/21/18 History Metoprolol [Lopressor TAB] 25 mg PO DAILY MDD BLOOD PRESSURE 11/06/17 08/25/19 02/21/18 History cloNIDine [Catapres] 0.1 mg PO DAILY 11/06/17 08/25/19 02/21/18 History Cinacalcet [Sensipar] 30 mg PO BID 02/21/18 08/25/19 02/21/18 History Furosemide [Lasix TAB] 80 mg PO BID 02/21/18 08/25/19 02/21/18 History Tamsulosin HCl [Flomax] 0.4 mg PO BID 02/21/18 08/25/19 02/21/18 History Temazepam [Restoril] 30 mg PO DAILY 02/21/18 08/25/19 02/21/18 History Triamcinolone 0.1% [Kenalog 0.1% 1 applic TP TID 02/21/18 08/25/19 02/21/18 History CREAM] Dorzolamide HCl/Timolol Maleat 1 drop OP DAILY 07/16/18 08/25/19 Unknown History [Cosopt Eye Drops] Clopidogrel [Plavix] 75 mg PO QDAY tablet 12/08/18 08/25/19 Unknown Rx Amlactin Foot Cream 1 unit TP PRN PRN 08/25/19 08/25/19 Unknown History Fluconazole [Diflucan TAB] 200 mg PO QDAY 08/25/19 08/25/19 Unknown History Ipratropium/Albuterol Sulfate 4 gm IH PRN PRN 08/25/19 08/25/19 Unknown History [Combivent Respimat Inhal [place]] Lispro Insulin [HumaLOG] See Protocol SQ AC 08/25/19 08/25/19 Unknown History Nitroglycerin [Nitrostat] 1 tab SUBLINGUAL PRN PRN 08/25/19 08/25/19 Unknown History Omeprazole 20 mg PO DAILY 08/25/19 08/25/19 Unknown History Sacubitril/Valsartan [Entresto 24 1 each PO BID 08/25/19 08/25/19 Unknown History - 26 mg] Sevelamer Carbonate [Renvela] 800 mg PO BIDWM 08/25/19 08/25/19 Unknown History Simbrinza 1%-0.2% Eye Drops 1 drop OP DAILY 08/25/19 08/25/19 Unknown History Tamsulosin [Flomax] 1 cap PO BID 08/25/19 08/25/19 Unknown History Travoprost 2.5 ml OP DAILY 08/25/19 08/25/19 Unknown History bisacodyL [Dulcolax] 10 mg PO DAILY PRN 08/25/19 08/25/19 Unknown History oxyCODONE /ACETAMINOPHEN [Percocet 1 tab PO Q4HR PRN 08/25/19 08/25/19 Unknown History 5/325] Active Medications: Generic Name Dose Route Start Last Admin Trade Name Freq PRN Reason Stop Dose Admin Acetaminophen 650 mg 08/25/19 22:14 Tylenol PO Q4H PRN Pain MILD(1-3)/Fever >100.5/GARCIA Albumin Human 25 gm 08/27/19 14:00 08/28/19 05:56 Alburx 25% (Albumin) IV 25 gm Q8HR ROBB Administration Aspirin 81 mg 08/27/19 10:00 08/28/19 09:13 Halfprin Ec PO 81 mg QDAY ROBB Administration Atorvastatin Calcium 40 mg 08/26/19 10:00 08/28/19 09:14 Lipitor PO 40 mg DAILY ROBB Administration Bisacodyl 10 mg 08/25/19 22:11 08/28/19 09:25 Dulcolax PO 10 mg DAILY PRN Administration Constipation Cinacalcet 30 mg 08/26/19 10:00 08/28/19 09:15 Sensipar PO 30 mg BID ROBB Administration Clopidogrel Bisulfate 75 mg 08/27/19 10:00 08/28/19 09:14 Plavix PO 75 mg QDAY ROBB Administration Epoetin [place] 10,000 unit 08/26/19 19:29 08/27/19 13:30 Procrit IV 10,000 unit SHY PRN Administration hemodialysis Fluconazole 200 mg 08/26/19 22:00 08/28/19 09:13 Diflucan PO 200 mg QDAY ROBB Administration Gabapentin 300 mg 08/27/19 22:00 08/27/19 21:52 Gabapentin PO 300 mg QHS ROBB Administration Hydromorphone HCl 0.5 mg 08/25/19 22:14 08/26/19 22:02 Dilaudid IV 0.5 mg Q3H PRN Administration Pain , Severe (7-10) Sodium Chloride 100 mls @ 999 mls/hr 08/26/19 19:29 Nacl 0.9% IV SHY PRN Hypotension Norepinephrine 4 mg in 250 mls @ 7.5 mls/hr 08/26/19 21:00 08/28/19 11:04 Levophed Drip 4 Mg/Ns 250 Ml IV 0 mcg/min TITR ROBB 0 mls/hr Titration Protocol 2 MCG/MIN Vasopressin 20 unit/ Sodium 101 mls @ 9.09 mls/hr 08/27/19 12:00 08/28/19 11:02 Chloride IV 0.03 units/min TITR ROBB 9.09 mls/hr Administration Protocol 0.03 UNITS/MIN Insulin Human Lispro 0 unit 08/26/19 07:30 08/28/19 08:33 Humalog SUB-Q 3 unit ACHS ROBB Administration Protocol Latanoprost 1 drops 08/26/19 22:00 08/27/19 21:53 Latanoprost 0.005% OU Not Given QHS ROBB Metoclopramide HCl 5 mg 08/25/19 22:14 Reglan IV Q6H PRN Nausea And Vomiting Midodrine 10 mg 08/28/19 12:00 Proamatine PO TID@0800,1200,1600 COUNT INCLUDES [facility] Miscellaneous Medication 1 unit 08/25/19 22:11 Amlactin Foot Cream TP PRN PRN Rash Miscellaneous Medication 1 drop 08/26/19 10:00 Dorzolamide Hcl/Timolol Maleat [Cosopt Eye Drops] OP DAILY COUNT INCLUDES [facility] Miscellaneous Medication 1 drop 08/26/19 10:00 Simbrinza 1%-0.2% Eye Drops OP DAILY ROBB Ondansetron HCl 4 mg 08/25/19 22:14 Zofran IV Q8H PRN Nausea And Vomiting Oxycodone/Acetaminophen 1 tab 08/25/19 22:14 08/28/19 09:18 Percocet 5/325 PO 1 tab Q6H PRN Administration Pain, Moderate (4-6) Pantoprazole Sodium 20 mg 08/26/19 10:00 08/28/19 09:15 Protonix PO 20 mg QAM ROBB Administration Sevelamer Carbonate 800 mg 08/25/19 23:00 08/28/19 09:15 Renvela PO 800 mg BID@0800,1700 ROBB Administration Sodium Chloride 10 ml 08/25/19 23:00 08/28/19 09:16 Sodium Chloride Flush Syringe 10 Ml IV 10 ml BID ROBB Administration Sodium Chloride 10 ml 08/25/19 22:14 Sodium Chloride Flush Syringe 10 Ml IV PRN PRN LINE FLUSH Tamsulosin HCl 0.4 mg 08/25/19 23:00 08/28/19 09:15 Flomax PO 0.4 mg BID ROBB Administration Temazepam 30 mg 08/26/19 10:00 08/28/19 09:14 Restoril PO 30 mg DAILY ROBB Administration Triamcinolone Acetonide 1 applic 08/26/19 08:00 08/28/19 08:33 Kenalog TP 1 applic TID ROBB Administration
[2019-08-28] MEDS: MIDODRINE 5 MG TAB PO SCH ×2 (13:05→17:05)
[2019-08-28] MEDS: GABAPENTIN 300 MG CAP PO SCH (21:45)
[2019-08-28] MEDS: LATANOPROST 0.005% OPHTH SOLN 2.5 ML OU SCH (23:12)
[2019-08-29] MEDS: ALBUMIN HUMAN 25% (25 GM/100 ML) INJ IV SCH ×2 (05:08→14:19)
[2019-08-29] MEDS: VASOPRESSIN 20 UNIT in SODIUM CHLORIDE 0.9% 100 ML IV SCH (05:16)
--- NOTE | 2019-08-29 07:41 | Progress Note ---
Assessment and Plan Assessment and plan: 08/28; f/u abdominal ultrasound Post paracentesis, to evaluate liver On vasopressin and midodrine, IV albumin Patient alert awake oriented x3 08/27; patient remains on vasopressors Receiving IV albumin, mild improvement Pending peritoneal fluid analysis --COVID positive patient Contact and droplet isolation, PPE protocol --Hyperkalemia; calcium chloride, Kayexalate Closely monitor potassium levels --Hypotension/shock: Requiring vasopressors On vasopressin, Midodrin maintain map more than 65 Patient had large volume paracentesis --Severe hypoalbuminemia; receiving IV albumin Slight improvement in albumin level --Massive ascites; s/p large-volume abdominal paracentesis 08/26/2019 removal of 7.7 L peritoneal fluid Follow fluid analysis, fluid restriction, Lasix --End-stage renal disease; on hemodialysis HD per schedule, nephrology consulted --Chronic systolic congestive heart failure; EF 40% Continue heart failure medications --Type 2 diabetes mellitus/upper glycemia HbA1c 5.1, Accu-Chek sliding scale coverage --Peripheral neuropathy; on gabapentin --h/o Cameron BKA: Supportive care --History of BPH; continue tamsulosin DVT prophylaxis; SCD, heparin renal dose Monitor closely and adjust management as needed Critical care time 35 minutes Brief history : 74-year-old -[place] male patient with significant history of hypertension CVA coronary artery disease end-stage renal disease on hemodialysis recently diagnosed positive COVID 19 infection residential resident, was admitted through emergency room with worsening shortness of breath and worsening abdominal distention and ascites, admitted for large volume paracentesis,Underwent ultrasound-guided paracentesis and removal of 7.7 L of peritoneal fluid, fluid analysis pending LDH protein glucose Postprocedure pat ient became hypotensive, requiring vasopressors. Nephrology evaluated the patient, on hemodialysis per schedule Currently patient is in ICU on vasopressin , Midodrin, IV albumin and other supportive care History Interval history: Patient seen and examined at bedside in ICU this morning Isolation precautions, PPE protocols followed Patient's chart, medications, tests reviewed Patient feels slightly better Continues to need pressors, vasopressin, midodrine Denies chest pain or shortness of breath Alert awake oriented x3 Vital signs reviewed Hospitalist Physical - Constitutional Vitals: Temp Pulse Resp BP Pulse Ox 97.4 F L 73 15 100/56 100 08/29/19 03:30 08/29/19 06:00 08/29/19 06:00 08/29/19 06:00 08/29/19 06:00 General appearance: Present: no acute distress, well-nourished - EENT Eyes: Present: PERRL, EOM intact - Neck Neck: Present: supple, normal ROM - Respiratory Respiratory effort: normal Respiratory: bilateral: diminished, rales, negative: rhonchi, wheezing - Cardiovascular Rhythm: regular Heart Sounds: Present: S1 & S2 - Extremities Extremities: no ischemia Extremity abnormal: edema - Abdominal General gastrointestinal: soft, non-tender, distended, normal bowel sounds, other (Ascites) - Integumentary Integumentary: Present: clear, warm - Psychiatric Psychiatric: appropriate mood/affect, cooperative - Neurologic Neurologic: moves all extremities Results - Labs CBC & Chem 7: 08/27/19 04:37 08/29/19 08:04 Labs: Laboratory Last Values WBC 4.6 K/mm3 (4.5-11.0) 08/27/19 04:37 RBC 3.44 M/mm3 (3.65-5.03) L 08/27/19 04:37 Hgb 9.3 gm/dl (11.8-15.2) L 08/27/19 04:37 Hct 28.6 % (35.5-45.6) L 08/27/19 04:37 MCV 83 fl (84-94) L 08/27/19 04:37 MCH 27 pg (28-32) L 08/27/19 04:37 MCHC 33 % (32-34) 08/27/19 04:37 RDW 24.2 % (13.2-15.2) H 08/27/19 04:37 Plt Count 144 K/mm3 (140-440) 08/27/19 04:37 Lymph % (Auto) 11.6 % (13.4-35.0) L 08/27/19 04:37 [place] % (Auto) 14.3 % (0.0-7.3) H 08/27/19 04:37 Eos % (Auto) 3.5 % (0.0-4.3) 08/27/19 04:37 Baso % (Auto) 1.5 % (0.0-1.8) 08/27/19 04:37 Lymph # 0.5 K/mm3 (1.2-5.4) L 08/27/19 04:37 [place] # 0.7 K/mm3 (0.0-0.8) 08/27/19 04:37 Eos # 0.2 K/mm3 (0.0-0.4) 08/27/19 04:37 Baso # 0.1 K/mm3 (0.0-0.1) 08/27/19 04:37 Add Manual Diff Complete 08/26/19 07:40 Total Counted 100 08/26/19 07:40 Seg Neutrophils % 69.1 % (40.0-70.0) 08/27/19 04:37 Seg Neuts % (Manual) 75.0 % (40.0-70.0) H 08/26/19 07:40 Band Neutrophils % 1.0 % 08/26/19 07:40 Lymphocytes % (Manual) 16.0 % (13.4-35.0) 08/26/19 07:40 Reactive Lymphs % (Man) 0 % 08/26/19 07:40 Monocytes % (Manual) 4.0 % (0.0-7.3) 08/26/19 07:40 Eosinophils % (Manual) 4.0 % (0.0-4.3) 08/26/19 07:40 Basophils % (Manual) 0 % (0.0-1.8) 08/26/19 07:40 Metamyelocytes % 0 % 08/26/19 07:40 Myelocytes % 0 % 08/26/19 07:40 Promyelocytes % 0 % 08/26/19 07:40 Blast Cells % 0 % 08/26/19 07:40 Nucleated RBC % Not Reportable 08/26/19 07:40 Seg Neutrophils # 3.1 K/mm3 (1.8-7.7) 08/27/19 04:37 Seg Neutrophils # Man 3.2 K/mm3 (1.8-7.7) 08/26/19 07:40 Band Neutrophils # 0.0 K/mm3 08/26/19 07:40 Lymphocytes # (Manual) 0.7 K/mm3 (1.2-5.4) L 08/26/19 07:40 Abs React Lymphs (Man) 0.0 K/mm3 08/26/19 07:40 Monocytes # (Manual) 0.2 K/mm3 (0.0-0.8) 08/26/19 07:40 Eosinophils # (Manual) 0.2 K/mm3 (0.0-0.4) 08/26/19 07:40 Basophils # (Manual) 0.0 K/mm3 (0.0-0.1) 08/26/19 07:40 Metamyelocytes # 0.0 K/mm3 08/26/19 07:40 Myelocytes # 0.0 K/mm3 08/26/19 07:40 Promyelocytes # 0.0 K/mm3 08/26/19 07:40 Blast Cells # 0.0 K/mm3 08/26/19 07:40 WBC Morphology Not Reportable 08/26/19 07:40 Hypersegmented Neuts Not Reportable 08/26/19 07:40 Hyposegmented Neuts Not Reportable 08/26/19 07:40 Hypogranular Neuts Not Reportable 08/26/19 07:40 Smudge Cells Not Reportable 08/26/19 07:40 Toxic Granulation Not Reportable 08/26/19 07:40 Toxic Vacuolation Not Reportable 08/26/19 07:40 Dohle Bodies Not Reportable 08/26/19 07:40 Pelger-Huet Anomaly Not Reportable 08/26/19 07:40 Shola Rods Not Reportable 08/26/19 07:40 Platelet Estimate Not Reportable 08/26/19 07:40 Clumped Platelets Not Reportable 08/26/19 07:40 Plt Clumps, EDTA Not Reportable 08/26/19 07:40 Large Platelets Not Reportable 08/26/19 07:40 Giant Platelets Not Reportable 08/26/19 07:40 Platelet Satelliting Not Reportable 08/26/19 07:40 Plt Morphology Comment Not Reportable 08/26/19 07:40 RBC Morphology Not Reportable 08/26/19 07:40 Dimorphic RBCs Not Reportable 08/26/19 07:40 Polychromasia Not Reportable 08/26/19 07:40 Hypochromasia 2+ 08/26/19 07:40 Poikilocytosis Not Reportable 08/26/19 07:40 Anisocytosis 2+ 08/26/19 07:40 Microcytosis Not Reportable 08/26/19 07:40 Macrocytosis Not Reportable 08/26/19 07:40 Spherocytes Not Reportable 08/26/19 07:40 Pappenheimer Bodies Not Reportable 08/26/19 07:40 Sickle Cells Not Reportable 08/26/19 07:40 Target Cells Few 08/26/19 07:40 Tear Drop Cells Not Reportable 08/26/19 07:40 Ovalocytes Not Reportable 08/26/19 07:40 Helmet Cells Not Reportable 08/26/19 07:40 [place] Bodies Not Reportable 08/26/19 07:40 [place] Rings Not Reportable 08/26/19 07:40 Janny Cells Not Reportable 08/26/19 07:40 Bite Cells Not Reportable 08/26/19 07:40 Crenated Cell Not Reportable 08/26/19 07:40 Elliptocytes Not Reportable 08/26/19 07:40 Acanthocytes (Spur) Not Reportable 08/26/19 07:40 Rouleaux Not Reportable 08/26/19 07:40 Hemoglobin C Crystals Not Reportable 08/26/19 07:40 Schistocytes Not Reportable 08/26/19 07:40 Malaria parasites Not Reportable 08/26/19 07:40 Wero Bodies Not Reportable 08/26/19 07:40 Hem Pathologist Commnt C 08/26/19 07:40 PT 16.0 Sec. (12.2-14.9) H 08/26/19 23:50 INR 1.27 (0.87-1.13) H 08/26/19 23:50 APTT 37.2 Sec. (24.2-36.6) H 08/26/19 23:50 Sodium 135 mmol/L (137-145) L 08/28/19 04:52 Potassium 4.6 mmol/L (3.6-5.0) 08/28/19 04:52 Chloride 94.7 mmol/L (98-107) L 08/28/19 04:52 Carbon Dioxide 29 mmol/L (22-30) 08/28/19 04:52 Anion Gap 16 mmol/L 08/28/19 04:52 BUN 27 mg/dL (9-20) H 08/28/19 04:52 Creatinine 3.5 mg/dL (0.8-1.5) H 08/28/19 04:52 Estimated GFR 21 ml/min 08/28/19 04:52 BUN/Creatinine Ratio 8 % 08/28/19 04:52 Glucose 148 mg/dL (75-100) H 08/28/19 04:52 POC Glucose 152 (70-105) H 08/28/19 22:00 Hemoglobin A1c 5.1 % (4-6) 08/25/19 13:46 Calcium 7.9 mg/dL (8.4-10.2) L 08/28/19 04:52 Magnesium 1.90 mg/dL (1.7-2.3) 08/28/19 04:52 Total Bilirubin 0.30 mg/dL (0.1-1.2) 08/28/19 04:52 AST 16 units/L (5-40) 08/28/19 04:52 ALT 14 units/L (7-56) 08/28/19 04:52 Alkaline Phosphatase 128 units/L (35-129) 08/28/19 04:52 Total Protein 7.2 g/dL (6.3-8.2) 08/28/19 04:52 Albumin 3.1 g/dL (3.9-5) L 08/28/19 04:52 Albumin/Globulin Ratio 0.8 % 08/28/19 04:52 Fluid Type Ascitic 08/25/19 Unknown Fluid Color Yellow 08/25/19 Unknown Fluid Appearance Hazy 08/25/19 Unknown Fluid WBC 196 /mm3 08/25/19 Unknown Fluid RBC 99 /mm3 08/25/19 Unknown Fluid Seg Neutrophils 2.0 % 08/25/19 Unknown Fluid Lymphocytes 17.0 % 08/25/19 Unknown Fluid Reactive Lymphs 0 % 08/25/19 Unknown Fluid Monocytes 71.0 % 08/25/19 Unknown Fluid Eosinophils 10.0 % 08/25/19 Unknown Fluid Basophils 0 % 08/25/19 Unknown Coronavirus (PCR) Positive (Negative) A 08/27/19 09:07 [place]/IV: IV Catheter Type [Right INT / Saline Lock Forearm] IV Catheter Type [Left Upper AV fistula arm] Active Medications - Current Medications Current Medications: Generic Name Dose Route Start Last Admin Trade Name Freq PRN Reason Stop Dose Admin Acetaminophen 650 mg 08/25/19 22:14 Tylenol PO Q4H PRN Pain MILD(1-3)/Fever >100.5/GARCIA Albumin Human 25 gm 08/27/19 14:00 08/29/19 05:08 Alburx 25% (Albumin) IV 25 gm Q8HR ROBB Administration Aspirin 81 mg 08/27/19 10:00 08/28/19 09:13 Halfprin Ec PO 81 mg QDAY ROBB Administration Atorvastatin Calcium 40 mg 08/26/19 10:00 08/28/19 09:14 Lipitor PO 40 mg DAILY ROBB Administration Bisacodyl 10 mg 08/25/19 22:11 08/28/19 09:25 Dulcolax PO 10 mg DAILY PRN Administration Constipation Cinacalcet 30 mg 08/26/19 10:00 08/28/19 21:45 Sensipar PO 30 mg BID ROBB Administration Clopidogrel Bisulfate 75 mg 08/27/19 10:00 08/28/19 09:14 Plavix PO 75 mg QDAY ROBB Administration Epoetin [place] 10,000 unit 08/26/19 19:29 08/27/19 13:30 Procrit IV 10,000 unit SHY PRN Administration hemodialysis Fluconazole 200 mg 08/26/19 22:00 08/28/19 09:13 Diflucan PO 200 mg QDAY ROBB Administration Gabapentin 300 mg 08/27/19 22:00 08/28/19 21:45 Gabapentin PO 300 mg QHS ROBB Administration Hydromorphone HCl 0.5 mg 08/25/19 22:14 08/26/19 22:02 Dilaudid IV 0.5 mg Q3H PRN Administration Pain , Severe (7-10) Sodium Chloride 100 mls @ 999 mls/hr 08/26/19 19:29 Nacl 0.9% IV SHY PRN Hypotension Norepinephrine 4 mg in 250 mls @ 7.5 mls/hr 08/26/19 21:00 08/28/19 11:04 Levophed Drip 4 Mg/Ns 250 Ml IV 0 mcg/min TITR ROBB 0 mls/hr Titration Protocol 2 MCG/MIN Vasopressin 20 unit/ Sodium 101 mls @ 9.09 mls/hr 08/27/19 12:00 08/29/19 05:16 Chloride IV 0.03 units/min TITR ROBB 9.09 mls/hr Administration Protocol 0.03 UNITS/MIN Insulin Human Lispro 0 unit 08/26/19 07:30 08/28/19 22:19 Humalog SUB-Q 2 unit ACHS ROBB Administration Protocol Latanoprost 1 drops 08/26/19 22:00 08/28/19 23:12 Latanoprost 0.005% OU 1 drops QHS ROBB Administration Metoclopramide HCl 5 mg 08/25/19 22:14 Reglan IV Q6H PRN Nausea And Vomiting Midodrine 10 mg 08/28/19 12:00 08/28/19 17:05 Proamatine PO 10 mg TID@0800,1200,1600 ROBB Administration Miscellaneous Medication 1 unit 08/25/19 22:11 Amlactin Foot Cream TP PRN PRN Rash Miscellaneous Medication 1 drop 08/26/19 10:00 Dorzolamide Hcl/Timolol Maleat [Cosopt Eye Drops] OP DAILY ROBB Miscellaneous Medication 1 drop 08/26/19 10:00 Simbrinza 1%-0.2% Eye Drops OP DAILY ROBB Ondansetron HCl 4 mg 08/25/19 22:14 Zofran IV Q8H PRN Nausea And Vomiting Oxycodone/Acetaminophen 1 tab 08/25/19 22:14 08/28/19 22:20 Percocet 5/325 PO 1 tab Q6H PRN Administration Pain, Moderate (4-6) Pantoprazole Sodium 20 mg 08/26/19 10:00 08/28/19 09:15 Protonix PO 20 mg QAM ROBB Administration Sevelamer Carbonate 800 mg 08/25/19 23:00 08/28/19 17:05 Renvela PO 800 mg BID@0800,1700 ROBB Administration Sodium Chloride 10 ml 08/25/19 23:00 08/28/19 21:54 Sodium Chloride Flush Syringe 10 Ml IV 10 ml BID ROBB Administration Sodium Chloride 10 ml 08/25/19 22:14 Sodium Chloride Flush Syringe 10 Ml IV PRN PRN LINE FLUSH Tamsulosin HCl 0.4 mg 08/25/19 23:00 08/28/19 21:45 Flomax PO 0.4 mg BID ROBB Administration Temazepam 30 mg 08/26/19 10:00 08/28/19 09:14 Restoril PO 30 mg DAILY ROBB Administration Triamcinolone Acetonide 1 applic 08/26/19 08:00 08/28/19 21:53 Kenalog TP 1 applic TID ROBB Administration
[2019-08-29 09:08] LABS: Calcium 7.7 mg/dL (8.4-10.2)
[2019-08-29] MEDS: TAMSULOSIN 0.4 MG CAP PO SCH ×2 (10:03→22:13)
[2019-08-29] MEDS: CINACALCET 30 MG TAB PO SCH ×2 (10:03→22:12)
[2019-08-29] MEDS: SEVELAMER CARBONATE 800 MG TAB PO SCH ×2 (10:04→17:37)
[2019-08-29] MEDS: CLOPIDOGREL 75 MG TAB PO SCH (10:04)
[2019-08-29] MEDS: PANTOPRAZOLE 20 MG TAB PO SCH (10:04)
[2019-08-29] MEDS: MIDODRINE 5 MG TAB PO SCH ×3 (10:04→17:38)
[2019-08-29] MEDS: ASPIRIN EC 81 MG TAB PO SCH (10:04)
[2019-08-29] MEDS: TEMAZEPAM 15 MG CAP PO SCH (10:04)
[2019-08-29] MEDS: INSULIN LISPRO 100 UNIT/ML SUB-Q SCH ×4 (10:05→22:11)
[2019-08-29] MEDS: TRIAMCINOLONE 0.1% CREAM 15 GM TP SCH ×3 (10:05→22:08)
[2019-08-29] MEDS: oxyCODONE /ACETAMINOPHEN 5-325MG TAB PO PRN ×2 (10:16→23:10)
--- NOTE | 2019-08-29 10:17 | Progress Note ---
Assessment and Plan 74 y/o COVID positive patient with massive ascities, s/p paracentesis large volume now with hypotension, but normal mental status. 1. Vasopressin would be the preferred choice for vasopressor therapy in this patient given his liver disease. I have increased his midodrine to 10 TID hoping to wean him off of pressor therapy. Still on vasopressin, nurse to try to wean today. 2. Needs abdominal ultrasound to evaluate liver 3. Wean Vasopressor therapy for MAPS 60 and greater. Suspect underlying liver disease and patient likely does not live with MAPS > than this. His mental state has not changed despite these drops in pressures. Still would hold off on fluid boluses. CCT 31 minutes. Subjective Date of service: 08/29/19 Interval history: No acute events. Still on Vasopressin. Mental status is stable. Maps do drop off pressors but mental does not worsen. Objective - Constitutional Vitals: Vital Signs - 12hr 08/28/19 08/28/19 08/28/19 22:15 22:20 22:30 Temperature Pulse Rate 73 75 Pulse Rate [ From Monitor] Pulse Rate [ None] Respiratory 14 20 13 Rate Blood Pressure 100/60 100/60 O2 Sat by Pulse 100 100 Oximetry 08/28/19 08/28/19 08/28/19 22:45 23:00 23:03 Temperature Pulse Rate 72 70 73 Pulse Rate [ From Monitor] Pulse Rate [ None] Respiratory 14 13 12 Rate Blood Pressure 116/59 108/57 108/57 O2 Sat by Pulse 100 100 100 Oximetry 08/28/19 08/28/19 08/28/19 23:04 23:15 23:20 Temperature 98.4 F Pulse Rate 70 Pulse Rate [ From Monitor] Pulse Rate [ None] Respiratory 16 20 Rate Blood Pressure 106/60 O2 Sat by Pulse 100 Oximetry 08/28/19 08/28/19 08/29/19 23:30 23:45 00:00 Temperature Pulse Rate 71 71 71 Pulse Rate [ 74 From Monitor] Pulse Rate [ None] Respiratory 12 12 12 Rate Blood Pressure 101/59 110/61 108/56 O2 Sat by Pulse 100 100 Oximetry 08/29/19 08/29/19 08/29/19 00:15 00:30 00:45 Temperature Pulse Rate 73 73 73 Pulse Rate [ From Monitor] Pulse Rate [ None] Respiratory 14 14 14 Rate Blood Pressure 112/57 106/60 108/65 O2 Sat by Pulse 100 100 100 Oximetry 08/29/19 08/29/19 08/29/19 01:00 01:15 01:30 Temperature Pulse Rate 73 73 73 Pulse Rate [ From Monitor] Pulse Rate [ None] Respiratory 13 12 12 Rate Blood Pressure 98/65 102/58 104/55 O2 Sat by Pulse 100 100 100 Oximetry 08/29/19 08/29/19 08/29/19 01:45 02:00 02:15 Temperature Pulse Rate 75 75 73 Pulse Rate [ From Monitor] Pulse Rate [ None] Respiratory 12 13 13 Rate Blood Pressure 97/57 99/72 112/54 O2 Sat by Pulse 100 100 100 Oximetry 08/29/19 08/29/19 08/29/19 02:30 02:45 03:00 Temperature Pulse Rate 74 74 74 Pulse Rate [ From Monitor] Pulse Rate [ None] Respiratory 12 12 11 L Rate Blood Pressure 112/60 116/60 108/55 O2 Sat by Pulse 99 100 100 Oximetry 08/29/19 08/29/19 08/29/19 03:15 03:30 03:45 Temperature 97.4 F L Pulse Rate 75 73 75 Pulse Rate [ From Monitor] Pulse Rate [ None] Respiratory 12 13 13 Rate Blood Pressure 100/59 101/60 111/58 O2 Sat by Pulse 100 98 99 Oximetry 08/29/19 08/29/19 08/29/19 04:00 04:15 04:30 Temperature Pulse Rate 75 74 74 Pulse Rate [ 75 From Monitor] Pulse Rate [ None] Respiratory 14 12 14 Rate Blood Pressure 109/53 101/54 116/57 O2 Sat by Pulse 100 100 100 Oximetry 08/29/19 08/29/19 08/29/19 04:45 05:00 05:16 Temperature Pulse Rate 74 75 75 Pulse Rate [ From Monitor] Pulse Rate [ None] Respiratory 14 11 L 15 Rate Blood Pressure 113/63 105/58 105/58 O2 Sat by Pulse 100 99 98 Oximetry 08/29/19 08/29/19 08/29/19 05:30 05:45 06:00 Temperature Pulse Rate 77 73 76 Pulse Rate [ From Monitor] Pulse Rate [ 73 None] Respiratory 14 14 19 Rate Blood Pressure 93/57 48/18 102/52 O2 Sat by Pulse 97 100 100 Oximetry 05/24/20 05/24/20 05/24/20 06:15 06:30 06:46 Temperature Pulse Rate 75 76 76 Pulse Rate [ From Monitor] Pulse Rate [ None] Respiratory 14 14 13 Rate Blood Pressure 99/54 99/54 106/58 O2 Sat by Pulse 100 100 100 Oximetry 08/29/19 08/29/19 08/29/19 07:00 07:15 07:30 Temperature Pulse Rate 74 75 75 Pulse Rate [ From Monitor] Pulse Rate [ None] Respiratory 15 15 17 Rate Blood Pressure 106/55 113/63 107/62 O2 Sat by Pulse 100 100 100 Oximetry 08/29/19 08/29/19 08/29/19 07:45 08:00 08:15 Temperature Pulse Rate 75 72 78 Pulse Rate [ 72 From Monitor] Pulse Rate [ None] Respiratory 19 14 16 Rate Blood Pressure 105/62 110/56 110/56 O2 Sat by Pulse 100 100 99 Oximetry 08/29/19 08/29/19 08/29/19 08:31 08:45 09:00 Temperature Pulse Rate 79 77 76 Pulse Rate [ From Monitor] Pulse Rate [ None] Respiratory 18 12 14 Rate Blood Pressure 118/58 110/56 108/59 O2 Sat by Pulse 96 100 Oximetry 08/29/19 09:15 Temperature Pulse Rate 76 Pulse Rate [ From Monitor] Pulse Rate [ None] Respiratory 15 Rate Blood Pressure 107/67 O2 Sat by Pulse 100 Oximetry - Labs CBC & Chem 7: 08/27/19 04:37 08/29/19 08:04 Labs: Abnormal lab results 08/28/19 08/28/19 08/28/19 Range/Units 11:45 17:11 22:00 Sodium (137-145) mmol/L Potassium (3.6-5.0) mmol/L Chloride (98-107) mmol/L BUN (9-20) mg/dL Creatinine (0.8-1.5) mg/dL Glucose (75-100) mg/dL POC Glucose 158 H 144 H 152 H (70-105) Calcium (8.4-10.2) mg/dL Lactate Dehydrogenase (91-180) units/L 08/29/19 Range/Units 08:04 Sodium 131 L (137-145) mmol/L Potassium 5.6 H D (3.6-5.0) mmol/L Chloride 94.5 L (98-107) mmol/L BUN 38 H (9-20) mg/dL Creatinine 4.7 H (0.8-1.5) mg/dL Glucose 181 H (75-100) mg/dL POC Glucose (70-105) Calcium 7.7 L (8.4-10.2) mg/dL Lactate Dehydrogenase 186 H (91-180) units/L Medications & Allergies - Medications Allergies/Adverse Reactions: Allergies No Known Allergies Allergy (Verified 11/06/17 12:21) Home Medications: Home Medications Medication Instructions Recorded Confirmed Last Taken Type Aspirin EC [Halfprin EC] 81 mg PO QDAY 11/06/17 08/25/19 02/21/18 History AtorvaSTATin [Lipitor] 40 mg PO DAILY 11/06/17 08/25/19 02/21/18 History Gabapentin 300 mg PO TID 11/06/17 08/25/19 02/21/18 History Metoprolol [Lopressor TAB] 25 mg PO DAILY MDD BLOOD PRESSURE 11/06/17 08/25/19 02/21/18 History cloNIDine [Catapres] 0.1 mg PO DAILY 11/06/17 08/25/19 02/21/18 History Cinacalcet [Sensipar] 30 mg PO BID 02/21/18 08/25/19 02/21/18 History Furosemide [Lasix TAB] 80 mg PO BID 02/21/18 08/25/19 02/21/18 History Tamsulosin HCl [Flomax] 0.4 mg PO BID 02/21/18 08/25/19 02/21/18 History Temazepam [Restoril] 30 mg PO DAILY 02/21/18 08/25/19 02/21/18 History Triamcinolone 0.1% [Kenalog 0.1% 1 applic TP TID 02/21/18 08/25/19 02/21/18 History CREAM] Dorzolamide HCl/Timolol Maleat 1 drop OP DAILY 07/16/18 08/25/19 Unknown History [Cosopt Eye Drops] Clopidogrel [Plavix] 75 mg PO QDAY tablet 12/08/18 08/25/19 Unknown Rx Amlactin Foot Cream 1 unit TP PRN PRN 08/25/19 08/25/19 Unknown History Fluconazole [Diflucan TAB] 200 mg PO QDAY 08/25/19 08/25/19 Unknown History Ipratropium/Albuterol Sulfate 4 gm IH PRN PRN 08/25/19 08/25/19 Unknown History [Combivent Respimat Inhal [place]] Lispro Insulin [HumaLOG] See Protocol SQ AC 08/25/19 08/25/19 Unknown History Nitroglycerin [Nitrostat] 1 tab SUBLINGUAL PRN PRN 08/25/19 08/25/19 Unknown History Omeprazole 20 mg PO DAILY 08/25/19 08/25/19 Unknown History Sacubitril/Valsartan [Entresto 24 1 each PO BID 08/25/19 08/25/19 Unknown History - 26 mg] Sevelamer Carbonate [Renvela] 800 mg PO BIDWM 08/25/19 08/25/19 Unknown History Simbrinza 1%-0.2% Eye Drops 1 drop OP DAILY 08/25/19 08/25/19 Unknown History Tamsulosin [Flomax] 1 cap PO BID 08/25/19 08/25/19 Unknown History Travoprost 2.5 ml OP DAILY 08/25/19 08/25/19 Unknown History bisacodyL [Dulcolax] 10 mg PO DAILY PRN 08/25/19 08/25/19 Unknown History oxyCODONE /ACETAMINOPHEN [Percocet 1 tab PO Q4HR PRN 08/25/19 08/25/19 Unknown History 5] Active Medications: Generic Name Dose Route Start Last Admin Trade Name Freq PRN Reason Stop Dose Admin Acetaminophen 650 mg 08/25/19 22:14 Tylenol PO Q4H PRN Pain MILD(1-3)/Fever >100.5/GARCIA Albumin Human 25 gm 08/27/19 14:00 08/29/19 05:08 Alburx 25% (Albumin) IV 25 gm Q8HR ROBB Administration Aspirin 81 mg 08/27/19 10:00 08/29/19 10:04 Halfprin Ec PO 81 mg QDAY ROBB Administration Atorvastatin Calcium 40 mg 08/26/19 10:00 08/29/19 10:03 Lipitor PO 40 mg DAILY ROBB Administration Bisacodyl 10 mg 08/25/19 22:11 08/28/19 09:25 Dulcolax PO 10 mg DAILY PRN Administration Constipation Calcium Chloride 1,000 mg 08/29/19 11:00 Calcium Chloride IV 08/29/19 11:01 ONCE ONE Cinacalcet 30 mg 08/26/19 10:00 08/29/19 10:03 Sensipar PO 30 mg BID ROBB Administration Clopidogrel Bisulfate 75 mg 08/27/19 10:00 08/29/19 10:04 Plavix PO 75 mg QDAY ROBB Administration Epoetin [place] 10,000 unit 08/26/19 19:29 08/27/19 13:30 Procrit IV 10,000 unit SHY PRN Administration hemodialysis Fluconazole 200 mg 08/26/19 22:00 08/28/19 09:13 Diflucan PO 200 mg QDAY ROBB Administration Gabapentin 300 mg 08/27/19 22:00 08/28/19 21:45 Gabapentin PO 300 mg QHS ROBB Administration Hydromorphone HCl 0.5 mg 08/25/19 22:14 08/26/19 22:02 Dilaudid IV 0.5 mg Q3H PRN Administration Pain , Severe (7-10) Sodium Chloride 100 mls @ 999 mls/hr 08/26/19 19:29 Nacl 0.9% IV SHY PRN Hypotension Norepinephrine 4 mg in 250 mls @ 7.5 mls/hr 08/26/19 21:00 08/28/19 11:04 Levophed Drip 4 Mg/Ns 250 Ml IV 0 mcg/min TITR ROBB 0 mls/hr Titration Protocol 2 MCG/MIN Vasopressin 20 unit/ Sodium 101 mls @ 9.09 mls/hr 08/27/19 12:00 08/29/19 05:16 Chloride IV 0.03 units/min TITR ROBB 9.09 mls/hr Administration Protocol 0.03 UNITS/MIN Insulin Human Lispro 0 unit 08/26/19 07:30 08/29/19 10:05 Humalog SUB-Q 3 unit ACHS [facility] Administration Protocol Latanoprost 1 drops 08/26/19 22:00 08/28/19 23:12 Latanoprost 0.005% OU 1 drops QHS [facility] Administration Metoclopramide HCl 5 mg 08/25/19 22:14 Reglan IV Q6H PRN Nausea And Vomiting Midodrine 10 mg 08/28/19 12:00 08/29/19 10:04 Proamatine PO 10 mg TID@0800,1200,1600 ROBB Administration Miscellaneous Medication 1 unit 08/25/19 22:11 Amlactin Foot Cream TP PRN PRN Rash Miscellaneous Medication 1 drop 08/26/19 10:00 Dorzolamide Hcl/Timolol Maleat [Cosopt Eye Drops] OP DAILY ROBB Miscellaneous Medication 1 drop 08/26/19 10:00 Simbrinza 1%-0.2% Eye Drops OP DAILY ROBB Ondansetron HCl 4 mg 08/25/19 22:14 Zofran IV Q8H PRN Nausea And Vomiting Oxycodone/Acetaminophen 1 tab 08/25/19 22:14 08/28/19 22:20 Percocet 5/325 PO 1 tab Q6H PRN Administration Pain, Moderate (4-6) Pantoprazole Sodium 20 mg 08/26/19 10:00 08/29/19 10:04 Protonix PO 20 mg QAM ROBB Administration Sevelamer Carbonate 800 mg 08/25/19 23:00 08/29/19 10:04 Renvela PO 800 mg BID@0800,1700 ROBB Administration Sodium Chloride 10 ml 08/25/19 23:00 08/29/19 10:06 Sodium Chloride Flush Syringe 10 Ml IV 10 ml BID ROBB Administration Sodium Chloride 10 ml 08/25/19 22:14 Sodium Chloride Flush Syringe 10 Ml IV PRN PRN LINE FLUSH Sodium Polystyrene Sulfonate 15 gm 08/29/19 10:30 Kionex PO 08/29/19 10:31 ONCE ONE Tamsulosin HCl 0.4 mg 08/25/19 23:00 08/29/19 10:03 Flomax PO 0.4 mg BID ROBB Administration Temazepam 30 mg 08/26/19 10:00 08/29/19 10:04 Restoril PO 30 mg DAILY ROBB Administration Triamcinolone Acetonide 1 applic 08/26/19 08:00 08/29/19 10:05 Kenalog TP 1 applic TID ROBB Administration
[2019-08-29] MEDS: FLUCONAZOLE 200 MG TAB PO SCH (10:21)
[2019-08-29] MEDS ORDERED: SODIUM POLYSTYRENE 15 GM/60 ML ORAL LIQD PO ONE (10:30)
[2019-08-29] MEDS ORDERED: CALCIUM CHLORIDE 1,000 MG/10 ML SYRINGE IV ONE (11:00)
--- NOTE | 2019-08-29 12:25 | Progress Note ---
Assessment and Plan - Patient Problems (1) ESRD (end stage renal disease) on dialysis Current Visit: No Status: Chronic Plan to address problem: Maintain on inpatient MWF HD schedule. Assess daily for needs of sequential UF treatments. No acute HD needs today. (2) Ascites Current Visit: No Status: Acute Plan to address problem: S/P paracentesis with removal of >7L. Need to arrange for outpatient paracentesis every 2-4 weeks as clinically necessary. (3) COVID-19 virus detected Current Visit: Yes Status: Chronic Plan to address problem: Continues on appropriate droplet precautions. (4) Hypotension Current Visit: Yes Status: Acute Plan to address problem: Plan to further wean the vasopressin. Midodrine increased to 10 mg TID. (5) Anemia in chronic kidney disease (CKD) Current Visit: Yes Status: Acute Qualifiers: Chronic kidney disease stage: on chronic dialysis Qualified Code(s): N18.6 - End stage renal disease; D63.1 - Anemia in chronic kidney disease; Z99.2 - Dependence on renal dialysis Plan to address problem: TEENA with HD therapy. Subjective Date of service: 08/29/19 Interval history: No acute changes, remains on vasopressin with goal to continue to titrate off. midodrine at 10 mg TID. No direct physical examination this afternoon due to lack of PPE. Objective - Vital Signs Vital signs: Vital Signs - 12hr 08/29/19 08/29/19 08/29/19 00:30 00:45 01:00 Temperature Pulse Rate 73 73 73 Pulse Rate [ From Monitor] Pulse Rate [ None] Respiratory 14 14 13 Rate Blood Pressure 106/60 108/65 98/65 O2 Sat by Pulse 100 100 100 Oximetry 08/29/19 08/29/19 08/29/19 01:15 01:30 01:45 Temperature Pulse Rate 73 73 75 Pulse Rate [ From Monitor] Pulse Rate [ None] Respiratory 12 12 12 Rate Blood Pressure 102/58 104/55 97/57 O2 Sat by Pulse 100 100 100 Oximetry 08/29/19 08/29/19 08/29/19 02:00 02:15 02:30 Temperature Pulse Rate 75 73 74 Pulse Rate [ From Monitor] Pulse Rate [ None] Respiratory 13 13 12 Rate Blood Pressure 99/72 112/54 112/60 O2 Sat by Pulse 100 100 99 Oximetry 08/29/19 08/29/19 08/29/19 02:45 03:00 03:15 Temperature Pulse Rate 74 74 75 Pulse Rate [ From Monitor] Pulse Rate [ None] Respiratory 12 11 L 12 Rate Blood Pressure 116/60 108/55 100/59 O2 Sat by Pulse 100 100 100 Oximetry 08/29/19 08/29/19 08/29/19 03:30 03:45 04:00 Temperature 97.4 F L Pulse Rate 73 75 75 Pulse Rate [ 75 From Monitor] Pulse Rate [ None] Respiratory 13 13 14 Rate Blood Pressure 101/60 111/58 109/53 O2 Sat by Pulse 98 99 100 Oximetry 08/29/19 08/29/19 08/29/19 04:15 04:30 04:45 Temperature Pulse Rate 74 74 74 Pulse Rate [ From Monitor] Pulse Rate [ None] Respiratory 12 14 14 Rate Blood Pressure 101/54 116/57 113/63 O2 Sat by Pulse 100 100 100 Oximetry 08/29/19 08/29/19 08/29/19 05:00 05:16 05:30 Temperature Pulse Rate 75 75 77 Pulse Rate [ From Monitor] Pulse Rate [ None] Respiratory 11 L 15 14 Rate Blood Pressure 105/58 105/58 93/57 O2 Sat by Pulse 99 98 97 Oximetry 08/29/19 08/29/19 08/29/19 05:45 06:00 06:15 Temperature Pulse Rate 73 76 75 Pulse Rate [ From Monitor] Pulse Rate [ 73 None] Respiratory 14 19 14 Rate Blood Pressure 48/18 102/52 99/54 O2 Sat by Pulse 100 100 100 Oximetry 08/29/19 08/29/19 08/29/19 06:30 06:46 07:00 Temperature Pulse Rate 76 76 74 Pulse Rate [ From Monitor] Pulse Rate [ None] Respiratory 14 13 15 Rate Blood Pressure 99/54 106/58 106/55 O2 Sat by Pulse 100 100 100 Oximetry 08/29/19 08/29/19 08/29/19 07:15 07:30 07:45 Temperature Pulse Rate 75 75 75 Pulse Rate [ From Monitor] Pulse Rate [ None] Respiratory 15 17 19 Rate Blood Pressure 113/63 107/62 105/62 O2 Sat by Pulse 100 100 100 Oximetry 08/29/19 08/29/19 08/29/19 08:00 08:15 08:31 Temperature 97.5 F L Pulse Rate 72 78 79 Pulse Rate [ 72 From Monitor] Pulse Rate [ None] Respiratory 14 16 18 Rate Blood Pressure 110/56 110/56 118/58 O2 Sat by Pulse 100 99 Oximetry 08/29/19 08/29/19 08/29/19 08:45 09:00 09:15 Temperature Pulse Rate 77 76 76 Pulse Rate [ From Monitor] Pulse Rate [ None] Respiratory 12 14 15 Rate Blood Pressure 110/56 108/59 107/67 O2 Sat by Pulse 96 100 100 Oximetry 08/29/19 08/29/19 08/29/19 09:31 09:45 10:00 Temperature Pulse Rate 85 77 77 Pulse Rate [ From Monitor] Pulse Rate [ None] Respiratory 18 22 11 L Rate Blood Pressure 107/67 91/51 83/55 O2 Sat by Pulse 71 L 100 100 Oximetry 08/29/19 08/29/19 08/29/19 10:15 10:30 10:45 Temperature Pulse Rate 74 74 73 Pulse Rate [ From Monitor] Pulse Rate [ None] Respiratory 17 15 16 Rate Blood Pressure 85/58 85/58 91/64 O2 Sat by Pulse 100 100 Oximetry 08/29/19 08/29/19 08/29/19 11:01 11:15 11:30 Temperature Pulse Rate 71 73 73 Pulse Rate [ From Monitor] Pulse Rate [ None] Respiratory 11 L 12 11 L Rate Blood Pressure 87/63 108/64 102/60 O2 Sat by Pulse 100 100 100 Oximetry 08/29/19 08/29/19 08/29/19 11:45 11:58 12:00 Temperature 97.4 F L Pulse Rate 75 64 Pulse Rate [ 64 From Monitor] Pulse Rate [ None] Respiratory 14 11 L Rate Blood Pressure 87/63 120/63 O2 Sat by Pulse 100 99 Oximetry - Lab 08/27/19 04:37 08/29/19 08:04 Most recent lab results Calcium 7.7 mg/dL (8.4-10.2) L 08/29/19 08:04 Magnesium 1.90 mg/dL (1.7-2.3) 08/28/19 04:52 Medications & Allergies - Medications Allergies/Adverse Reactions: Allergies No Known Allergies Allergy (Verified 11/06/17 12:21) Home Medications: Home Medications Medication Instructions Recorded Confirmed Last Taken Type Aspirin EC [Halfprin EC] 81 mg PO QDAY 11/06/17 08/25/19 02/21/18 History AtorvaSTATin [Lipitor] 40 mg PO DAILY 11/06/17 08/25/19 02/21/18 History Gabapentin 300 mg PO TID 11/06/17 08/25/19 02/21/18 History Metoprolol [Lopressor TAB] 25 mg PO DAILY MDD BLOOD PRESSURE 11/06/17 08/25/19 02/21/18 History cloNIDine [Catapres] 0.1 mg PO DAILY 11/06/17 08/25/19 02/21/18 History Cinacalcet [Sensipar] 30 mg PO BID 02/21/18 08/25/19 02/21/18 History Furosemide [Lasix TAB] 80 mg PO BID 02/21/18 08/25/19 02/21/18 History Tamsulosin HCl [Flomax] 0.4 mg PO BID 02/21/18 08/25/19 02/21/18 History Temazepam [Restoril] 30 mg PO DAILY 02/21/18 08/25/19 02/21/18 History Triamcinolone 0.1% [Kenalog 0.1% 1 applic TP TID 02/21/18 08/25/19 02/21/18 History CREAM] Dorzolamide HCl/Timolol Maleat 1 drop OP DAILY 07/16/18 08/25/19 Unknown History [Cosopt Eye Drops] Clopidogrel [Plavix] 75 mg PO QDAY tablet 12/08/18 08/25/19 Unknown Rx Amlactin Foot Cream 1 unit TP PRN PRN 08/25/19 08/25/19 Unknown History Fluconazole [Diflucan TAB] 200 mg PO QDAY 08/25/19 08/25/19 Unknown History Ipratropium/Albuterol Sulfate 4 gm IH PRN PRN 08/25/19 08/25/19 Unknown History [Combivent Respimat Inhal [place]] Lispro Insulin [HumaLOG] See Protocol SQ AC 08/25/19 08/25/19 Unknown History Nitroglycerin [Nitrostat] 1 tab SUBLINGUAL PRN PRN 08/25/19 08/25/19 Unknown History Omeprazole 20 mg PO DAILY 08/25/19 08/25/19 Unknown History Sacubitril/Valsartan [Entresto 24 1 each PO BID 08/25/19 08/25/19 Unknown History - 26 mg] Sevelamer Carbonate [Renvela] 800 mg PO BIDWM 08/25/19 08/25/19 Unknown History Simbrinza 1%-0.2% Eye Drops 1 drop OP DAILY 08/25/19 08/25/19 Unknown History Tamsulosin [Flomax] 1 cap PO BID 08/25/19 08/25/19 Unknown History Travoprost 2.5 ml OP DAILY 08/25/19 08/25/19 Unknown History bisacodyL [Dulcolax] 10 mg PO DAILY PRN 08/25/19 08/25/19 Unknown History oxyCODONE /ACETAMINOPHEN [Percocet 1 tab PO Q4HR PRN 08/25/19 08/25/19 Unknown History 5/325] Active Medications: Generic Name Dose Route Start Last Admin Trade Name Freq PRN Reason Stop Dose Admin Acetaminophen 650 mg 08/25/19 22:14 Tylenol PO Q4H PRN Pain MILD(1-3)/Fever >100.5/GARCIA Albumin Human 25 gm 08/27/19 14:00 08/29/19 05:08 Alburx 25% (Albumin) IV 25 gm Q8HR ROBB Administration Aspirin 81 mg 08/27/19 10:00 08/29/19 10:04 Halfprin Ec PO 81 mg QDAY ROBB Administration Atorvastatin Calcium 40 mg 08/26/19 10:00 08/29/19 10:03 Lipitor PO 40 mg DAILY ROBB Administration Bisacodyl 10 mg 08/25/19 22:11 08/28/19 09:25 Dulcolax PO 10 mg DAILY PRN Administration Constipation Cinacalcet 30 mg 08/26/19 10:00 08/29/19 10:03 Sensipar PO 30 mg BID RBOB Administration Clopidogrel Bisulfate 75 mg 08/27/19 10:00 08/29/19 10:04 Plavix PO 75 mg QDAY ROBB Administration Epoetin [place] 10,000 unit 08/26/19 19:29 08/27/19 13:30 Procrit IV 10,000 unit SHY PRN Administration hemodialysis Fluconazole 200 mg 08/26/19 22:00 08/29/19 10:21 Diflucan PO 200 mg QDAY ROBB Administration Gabapentin 300 mg 08/27/19 22:00 08/28/19 21:45 Gabapentin PO 300 mg QHS ROBB Administration Hydromorphone HCl 0.5 mg 08/25/19 22:14 08/26/19 22:02 Dilaudid IV 0.5 mg Q3H PRN Administration Pain , Severe (7-10) Sodium Chloride 100 mls @ 999 mls/hr 08/26/19 19:29 Nacl 0.9% IV SHY PRN Hypotension Norepinephrine 4 mg in 250 mls @ 7.5 mls/hr 08/26/19 21:00 08/28/19 11:04 Levophed Drip 4 Mg/Ns 250 Ml IV 0 mcg/min TITR ROBB 0 mls/hr Titration Protocol 2 MCG/MIN Vasopressin 20 unit/ Sodium 101 mls @ 9.09 mls/hr 08/27/19 12:00 08/29/19 05:16 Chloride IV 0.03 units/min TITR ROBB 9.09 mls/hr Administration Protocol 0.03 UNITS/MIN Insulin Human Lispro 0 unit 08/26/19 07:30 08/29/19 10:05 Humalog SUB-Q 3 unit ACHS ROBB Administration Protocol Latanoprost 1 drops 08/26/19 22:00 08/28/19 23:12 Latanoprost 0.005% OU 1 drops QHS ROBB Administration Metoclopramide HCl 5 mg 08/25/19 22:14 Reglan IV Q6H PRN Nausea And Vomiting Midodrine 10 mg 08/28/19 12:00 08/29/19 10:04 Proamatine PO 10 mg TID@0800,1200,1600 ROBB Administration Miscellaneous Medication 1 unit 08/25/19 22:11 Amlactin Foot Cream TP PRN PRN Rash Miscellaneous Medication 1 drop 08/26/19 10:00 Dorzolamide Hcl/Timolol Maleat [Cosopt Eye Drops] OP DAILY ROBB Miscellaneous Medication 1 drop 08/26/19 10:00 Simbrinza 1%-0.2% Eye Drops OP DAILY ROBB Ondansetron HCl 4 mg 08/25/19 22:14 Zofran IV Q8H PRN Nausea And Vomiting Oxycodone/Acetaminophen 1 tab 08/25/19 22:14 08/29/19 10:16 Percocet 5/325 PO 1 tab Q6H PRN Administration Pain, Moderate (4-6) Pantoprazole Sodium 20 mg 08/26/19 10:00 08/29/19 10:04 Protonix PO 20 mg QAM ROBB Administration Sevelamer Carbonate 800 mg 08/25/19 23:00 08/29/19 10:04 Renvela PO 800 mg BID@0800,1700 ROBB Administration Sodium Chloride 10 ml 08/25/19 23:00 08/29/19 10:06 Sodium Chloride Flush Syringe 10 Ml IV 10 ml BID ROBB Administration Sodium Chloride 10 ml 08/25/19 22:14 Sodium Chloride Flush Syringe 10 Ml IV PRN PRN LINE FLUSH Tamsulosin HCl 0.4 mg 08/25/19 23:00 08/29/19 10:03 Flomax PO 0.4 mg BID ROBB Administration Temazepam 30 mg 08/26/19 10:00 08/29/19 10:04 Restoril PO 30 mg DAILY ROBB Administration Triamcinolone Acetonide 1 applic 08/26/19 08:00 08/29/19 10:05 Kenalog TP 1 applic TID ROBB Administration
[2019-08-29] MEDS: LATANOPROST 0.005% OPHTH SOLN 2.5 ML OU SCH (22:08)
[2019-08-29] MEDS: ALBUMIN HUMAN 25% (12.5 GM/50 ML) INJ IV SCH (22:09)
[2019-08-29] MEDS: GABAPENTIN 300 MG CAP PO SCH (22:13)
[2019-08-30] MEDS: ALBUMIN HUMAN 25% (12.5 GM/50 ML) INJ IV SCH ×3 (05:10→21:34)
[2019-08-30] MEDS: INSULIN LISPRO 100 UNIT/ML SUB-Q SCH ×4 (09:17→21:23)
[2019-08-30] MEDS: MIDODRINE 5 MG TAB PO SCH ×3 (09:43→17:12)
[2019-08-30] MEDS: CINACALCET 30 MG TAB PO SCH ×2 (09:44→21:18)
[2019-08-30] MEDS: ASPIRIN EC 81 MG TAB PO SCH (09:44)
[2019-08-30] MEDS: TAMSULOSIN 0.4 MG CAP PO SCH ×2 (09:44→21:17)
[2019-08-30] MEDS: SEVELAMER CARBONATE 800 MG TAB PO SCH ×2 (09:45→17:12)
[2019-08-30] MEDS: CLOPIDOGREL 75 MG TAB PO SCH (09:45)
[2019-08-30] MEDS: PANTOPRAZOLE 20 MG TAB PO SCH (09:45)
[2019-08-30] MEDS: FLUCONAZOLE 200 MG TAB PO SCH (09:46)
[2019-08-30] MEDS: TRIAMCINOLONE 0.1% CREAM 15 GM TP SCH ×3 (09:49→21:19)
--- NOTE | 2019-08-30 09:57 | Progress Note ---
Assessment and Plan - Patient Problems (1) ESRD (end stage renal disease) on dialysis Current Visit: No Status: Chronic Plan to address problem: Maintain on inpatient MWF HD schedule. Assess daily for needs of sequential UF treatments. (2) Ascites Current Visit: No Status: Acute Plan to address problem: S/P paracentesis with removal of >7L. Need to arrange for outpatient paracentesis every 2-4 weeks as clinically necessary. (3) COVID-19 virus detected Current Visit: Yes Status: Chronic Plan to address problem: Continues on appropriate droplet precautions. (4) Hypotension Current Visit: Yes Status: Acute Plan to address problem: Weaned off vasopressin. Midodrine maintained at 10 mg TID. (5) Anemia in chronic kidney disease (CKD) Current Visit: Yes Status: Acute Qualifiers: Chronic kidney disease stage: on chronic dialysis Qualified Code(s): N18.6 - End stage renal disease; D63.1 - Anemia in chronic kidney disease; Z99.2 - Dependence on renal dialysis Plan to address problem: TEENA with HD therapy. Subjective Date of service: 08/30/19 Interval history: No acute issues, off vasopressin. Continues on midodrine. Objective - Vital Signs Vital signs: Vital Signs - 12hr 08/29/19 08/29/19 08/29/19 23:00 23:10 23:15 Temperature 97.4 F L 97.3 F L Pulse Rate 78 75 Respiratory 18 18 17 Rate Blood Pressure 107/64 107/57 08/29/19 08/29/19 08/30/19 23:45 23:57 00:01 Temperature 97.5 F L Pulse Rate 77 105 H 67 Respiratory 18 Rate Blood Pressure 109/63 105/71 105/71 08/30/19 08/30/19 08/30/19 00:10 00:15 00:30 Temperature 97.7 F 97.4 F L Pulse Rate 77 77 Respiratory 17 17 17 Rate Blood Pressure 106/59 114/58 08/30/19 08/30/19 08/30/19 01:00 01:30 02:00 Temperature 97.4 F L 97.4 F L 97.6 F Pulse Rate 78 76 75 Respiratory 18 18 17 Rate Blood Pressure 108/59 110/60 88/54 08/30/19 08/30/19 08/30/19 05:10 05:25 05:55 Temperature 97.6 F 97.6 F 97.7 F Pulse Rate 77 75 78 Respiratory 18 18 16 Rate Blood Pressure 107/57 93/48 95/50 08/30/19 06:25 Temperature 97.5 F L Pulse Rate 84 Respiratory 16 Rate Blood Pressure 92/52 - General Appearance General appearance: well-developed, well-nourished, appears stated age EENT: ATNC, PERRL Neck: no JVD, no thyromegaly Respiratory: Present: Clear to Ascultation, Normal Exam Cardiology: regular, S1S2 Gastrointestinal: normal, normoactive bowel sounds Neurologic: no focal deficit, alert and oriented x3 Musculoskeletal: deferred Psychiatric: mood/affect appropriate, cooperative - Lab 08/27/19 04:37 08/29/19 08:04 Most recent lab results Calcium 7.7 mg/dL (8.4-10.2) L 08/29/19 08:04 Magnesium 1.90 mg/dL (1.7-2.3) 08/28/19 04:52 - Allied health notes Allied health notes reviewed: nursing Medications & Allergies - Medications Allergies/Adverse Reactions: Allergies No Known Allergies Allergy (Verified 11/06/17 12:21) Home Medications: Home Medications Medication Instructions Recorded Confirmed Last Taken Type Aspirin EC [Halfprin EC] 81 mg PO QDAY 11/06/17 08/25/19 02/21/18 History AtorvaSTATin [Lipitor] 40 mg PO DAILY 11/06/17 08/25/19 02/21/18 History Gabapentin 300 mg PO TID 11/06/17 08/25/19 02/21/18 History Metoprolol [Lopressor TAB] 25 mg PO DAILY MDD BLOOD PRESSURE 11/06/17 08/25/19 02/21/18 History cloNIDine [Catapres] 0.1 mg PO DAILY 11/06/17 08/25/19 02/21/18 History Cinacalcet [Sensipar] 30 mg PO BID 02/21/18 08/25/19 02/21/18 History Furosemide [Lasix TAB] 80 mg PO BID 02/21/18 08/25/19 02/21/18 History Tamsulosin HCl [Flomax] 0.4 mg PO BID 02/21/18 08/25/19 02/21/18 History Temazepam [Restoril] 30 mg PO DAILY 11/08/25/19 02/21/18 History Triamcinolone 0.1% [Kenalog 0.1% 1 applic TP TID 02/21/18 08/25/19 02/21/18 History CREAM] Dorzolamide HCl/Timolol Maleat 1 drop OP DAILY 07/16/18 08/25/19 Unknown History [Cosopt Eye Drops] Clopidogrel [Plavix] 75 mg PO QDAY tablet 12/08/18 08/25/19 Unknown Rx Amlactin Foot Cream 1 unit TP PRN PRN 08/25/19 08/25/19 Unknown History Fluconazole [Diflucan TAB] 200 mg PO QDAY 08/25/19 08/25/19 Unknown History Ipratropium/Albuterol Sulfate 4 gm IH PRN PRN 08/25/19 08/25/19 Unknown History [Combivent Respimat Inhal [place]] Lispro Insulin [HumaLOG] See Protocol SQ AC 08/25/19 08/25/19 Unknown History Nitroglycerin [Nitrostat] 1 tab SUBLINGUAL PRN PRN 08/25/19 08/25/19 Unknown History Omeprazole 20 mg PO DAILY 08/25/19 08/25/19 Unknown History Sacubitril/Valsartan [Entresto 24 1 each PO BID 08/25/19 08/25/19 Unknown History - 26 mg] Sevelamer Carbonate [Renvela] 800 mg PO BIDWM 08/25/19 08/25/19 Unknown History Simbrinza 1%-0.2% Eye Drops 1 drop OP DAILY 08/25/19 08/25/19 Unknown History Tamsulosin [Flomax] 1 cap PO BID 08/25/19 08/25/19 Unknown History Travoprost 2.5 ml OP DAILY 08/25/19 08/25/19 Unknown History bisacodyL [Dulcolax] 10 mg PO DAILY PRN 08/25/19 08/25/19 Unknown History oxyCODONE /ACETAMINOPHEN [Percocet 1 tab PO Q4HR PRN 08/25/19 08/25/19 Unknown History 5/325] Active Medications: Generic Name Dose Route Start Last Admin Trade Name Freq PRN Reason Stop Dose Admin Acetaminophen 650 mg 08/25/19 22:14 Tylenol PO Q4H PRN Pain MILD(1-3)/Fever >100.5/GARCIA Albumin Human 25 gm 08/29/19 22:00 08/30/19 05:10 Alburx 25% (Albumin) IV 25 gm Q8H ROBB Administration Aspirin 81 mg 08/27/19 10:00 08/30/19 09:44 Halfprin Ec PO 81 mg QDAY ROBB Administration Atorvastatin Calcium 40 mg 08/26/19 10:00 08/30/19 09:43 Lipitor PO 40 mg DAILY ROBB Administration Bisacodyl 10 mg 08/25/19 22:11 08/28/19 09:25 Dulcolax PO 10 mg DAILY PRN Administration Constipation Cinacalcet 30 mg 08/26/19 10:00 08/30/19 09:44 Sensipar PO 30 mg BID ROBB Administration Clopidogrel Bisulfate 75 mg 08/27/19 10:00 08/30/19 09:45 Plavix PO 75 mg QDAY ROBB Administration Epoetin [place] 10,000 unit 08/26/19 19:29 08/27/19 13:30 Procrit IV 10,000 unit SHY PRN Administration hemodialysis Fluconazole 200 mg 08/26/19 22:00 08/30/19 09:46 Diflucan PO 200 mg QDAY [facility] Administration Gabapentin 300 mg 08/27/19 22:00 08/29/19 22:13 Gabapentin PO 300 mg QHS [facility] Administration Hydromorphone HCl 0.5 mg 08/25/19 22:14 08/26/19 22:02 Dilaudid IV 0.5 mg Q3H PRN Administration Pain , Severe (7-10) Sodium Chloride 100 mls @ 999 mls/hr 08/26/19 19:29 Nacl 0.9% IV SHY PRN Hypotension Insulin Human Lispro 0 unit 08/26/19 07:30 08/30/19 09:17 Humalog SUB-Q Not Given ACHS [facility] Protocol Latanoprost 1 drops 08/26/19 22:00 08/29/19 22:08 Latanoprost 0.005% OU 1 drops QHS [facility] Administration Metoclopramide HCl 5 mg 08/25/19 22:14 Reglan IV Q6H PRN Nausea And Vomiting Midodrine 10 mg 08/28/19 12:00 08/30/19 09:43 Proamatine PO 10 mg TID@0800,1200,1600 [facility] Administration Ondansetron HCl 4 mg 08/25/19 22:14 Zofran IV Q8H PRN Nausea And Vomiting Oxycodone/Acetaminophen 1 tab 08/25/19 22:14 08/29/19 23:10 Percocet 5/325 PO 1 tab Q6H PRN Administration Pain, Moderate (4-6) Pantoprazole Sodium 20 mg 08/26/19 10:00 08/30/19 09:45 Protonix PO 20 mg QAM ROBB Administration Sevelamer Carbonate 800 mg 08/25/19 23:00 08/30/19 09:45 Renvela PO 800 mg BID@0800,1700 ROBB Administration Sodium Chloride 10 ml 08/25/19 23:00 08/29/19 22:09 Sodium Chloride Flush Syringe 10 Ml IV 10 ml BID ROBB Administration Sodium Chloride 10 ml 08/25/19 22:14 Sodium Chloride Flush Syringe 10 Ml IV PRN PRN LINE FLUSH Tamsulosin HCl 0.4 mg 08/25/19 23:00 08/30/19 09:44 Flomax PO 0.4 mg BID ROBB Administration Temazepam 30 mg 08/26/19 10:00 08/29/19 10:04 Restoril PO 30 mg DAILY ROBB Administration Triamcinolone Acetonide 1 applic 08/26/19 08:00 08/30/19 09:49 Kenalog TP 1 applic TID ROBB Administration
[2019-08-30] MEDS: oxyCODONE /ACETAMINOPHEN 5-325MG TAB PO PRN ×2 (10:13→17:51)
[2019-08-30] MEDS: TEMAZEPAM 15 MG CAP PO SCH ×2 (14:30→21:18)
[2019-08-30] MEDS: GABAPENTIN 300 MG CAP PO SCH (21:17)
[2019-08-30] MEDS: ACETAMINOPHEN 325 MG TAB PO PRN (21:21)
[2019-08-30] MEDS: LATANOPROST 0.005% OPHTH SOLN 2.5 ML OU SCH (21:42)
--- NOTE | 2019-08-30 22:17 | Progress Note ---
Assessment and Plan Assessment and plan: 08/29; patient has worsening ascites, follow abdominal ultrasound Patient complains of mild shortness of breath not feeling well Possible repeat paracentesis tomorrow if no improvement Monitor off vasopressors 08/28; f/u abdominal ultrasound Post paracentesis, to evaluate liver On vasopressin and midodrine, IV albumin Patient alert awake oriented x3 08/27; patient remains on vasopressors Receiving IV albumin, mild improvement Pending peritoneal fluid analysis --COVID positive patient Contact and droplet isolation, PPE protocol --Hyperkalemia; calcium chloride, Kayexalate Closely monitor potassium levels --Hypotension/shock: Requiring vasopressors off vasopressin, continue Midodrin Supportive care --Severe hypoalbuminemia; receiving IV albumin Slight improvement in albumin level --Massive ascites; s/p large-volume abdominal paracentesis 08/26/2019 removal of 7.7 L peritoneal fluid Follow fluid analysis, fluid restriction, Lasix --End-stage renal disease; on hemodialysis HD per schedule, nephrology consulted --Chronic systolic congestive heart failure; EF 40% Continue heart failure medications --Type 2 diabetes mellitus/upper glycemia HbA1c 5.1, Accu-Chek sliding scale coverage --Peripheral neuropathy; on gabapentin --h/o Cameron BKA: Supportive care --History of BPH; continue tamsulosin DVT prophylaxis; SCD, heparin renal dose Monitor closely and adjust management as needed Disposition; follow abdominal ultrasound, consider repeat paracentesis if needed Discharge when medically stable, back to SNF Plan of care reviewed with the patient and his nurse Critical care time 35 minutes Brief history : 74-year-old -[place]ian male patient with significant history of h ypertension CVA coronary artery disease end-stage renal disease on hemodialysis recently diagnosed positive COVID 19 infection longterm resident, was admitted through emergency room with worsening shortness of breath and worsening abdominal distention and ascites, admitted for large volume parac entesis,Underwent ultrasound-guided paracentesis and removal of 7.7 L of peritoneal fluid, fluid analysis pending LDH protein glucose Postprocedure patient became hypotensive, requiring vasopressors. Nephrology evaluated the patient, on hemodialysis per schedule, off vasopressors Patient has worsening abdominal distention today, with mild shortness of breath, consider paracentesis if no improvement tomorrow History Interval history: Patient seen and examined at the bedside in [facility] Patient's chart, overnight events, consultants recommendation, medications reviewed Patient reports that he is she is not doing well, feels shortness of breath and tightness in the abdomen Denies pain, denies nausea or vomiting Alert and awake, mild distress Vital signs reviewed Hospitalist Physical - Constitutional Vitals: Temp Pulse Resp BP Pulse Ox 98.8 F 91 H 16 111/61 97 08/30/19 22:09 08/30/19 22:09 08/30/19 22:09 08/30/19 22:09 08/30/19 22:09 General appearance: Present: mild distress, well-nourished - EENT Eyes: Present: PERRL, EOM intact - Neck Neck: Present: supple, normal ROM - Respiratory Respiratory effort: normal Respiratory: bilateral: diminished, rales, negative: rhonchi, wheezing - Cardiovascular Rhythm: regular Heart Sounds: Present: S1 & S2 - Extremities Extremities: no ischemia Extremity abnormal: edema - Abdominal General gastrointestinal: soft, non-tender, non-distended, normal bowel sounds, other (Worsening ascites) - Integumentary Integumentary: Present: clear, warm - Psychiatric Psychiatric: appropriate mood/affect, cooperative - Neurologic Neurologic: moves all extremities Results - Labs CBC & Chem 7: 08/27/19 04:37 08/29/19 08:04 Labs: Laboratory Last Values WBC 4.6 K/mm3 (4.5-11.0) 08/27/19 04:37 RBC 3.44 M/mm3 (3.65-5.03) L 08/27/19 04:37 Hgb 9.3 gm/dl (11.8-15.2) L 08/27/19 04:37 Hct 28.6 % (35.5-45.6) L 08/27/19 04:37 MCV 83 fl (84-94) L 08/27/19 04:37 MCH 27 pg (28-32) L 08/27/19 04:37 MCHC 33 % (32-34) 08/27/19 04:37 RDW 24.2 % (13.2-15.2) H 08/27/19 04:37 Plt Count 144 K/mm3 (140-440) 08/27/19 04:37 Lymph % (Auto) 11.6 % (13.4-35.0) L 08/27/19 04:37 [place] % (Auto) 14.3 % (0.0-7.3) H 08/27/19 04:37 Eos % (Auto) 3.5 % (0.0-4.3) 08/27/19 04:37 Baso % (Auto) 1.5 % (0.0-1.8) 08/27/19 04:37 Lymph # 0.5 K/mm3 (1.2-5.4) L 08/27/19 04:37 [place] # 0.7 K/mm3 (0.0-0.8) 08/27/19 04:37 Eos # 0.2 K/mm3 (0.0-0.4) 08/27/19 04:37 Baso # 0.1 K/mm3 (0.0-0.1) 08/27/19 04:37 Add Manual Diff Complete 08/26/19 07:40 Total Counted 100 08/26/19 07:40 Seg Neutrophils % 69.1 % (40.0-70.0) 08/27/19 04:37 Seg Neuts % (Manual) 75.0 % (40.0-70.0) H 08/26/19 07:40 Band Neutrophils % 1.0 % 08/26/19 07:40 Lymphocytes % (Manual) 16.0 % (13.4-35.0) 08/26/19 07:40 Reactive Lymphs % (Man) 0 % 08/26/19 07:40 Monocytes % (Manual) 4.0 % (0.0-7.3) 08/26/19 07:40 Eosinophils % (Manual) 4.0 % (0.0-4.3) 08/26/19 07:40 Basophils % (Manual) 0 % (0.0-1.8) 08/26/19 07:40 Metamyelocytes % 0 % 08/26/19 07:40 Myelocytes % 0 % 08/26/19 07:40 Promyelocytes % 0 % 08/26/19 07:40 Blast Cells % 0 % 08/26/19 07:40 Nucleated RBC % Not Reportable 08/26/19 07:40 Seg Neutrophils # 3.1 K/mm3 (1.8-7.7) 08/27/19 04:37 Seg Neutrophils # Man 3.2 K/mm3 (1.8-7.7) 08/26/19 07:40 Band Neutrophils # 0.0 K/mm3 08/26/19 07:40 Lymphocytes # (Manual) 0.7 K/mm3 (1.2-5.4) L 08/26/19 07:40 Abs React Lymphs (Man) 0.0 K/mm3 08/26/19 07:40 Monocytes # (Manual) 0.2 K/mm3 (0.0-0.8) 08/26/19 07:40 Eosinophils # (Manual) 0.2 K/mm3 (0.0-0.4) 08/26/19 07:40 Basophils # (Manual) 0.0 K/mm3 (0.0-0.1) 08/26/19 07:40 Metamyelocytes # 0.0 K/mm3 08/26/19 07:40 Myelocytes # 0.0 K/mm3 08/26/19 07:40 Promyelocytes # 0.0 K/mm3 08/26/19 07:40 Blast Cells # 0.0 K/mm3 08/26/19 07:40 WBC Morphology Not Reportable 08/26/19 07:40 Hypersegmented Neuts Not Reportable 08/26/19 07:40 Hyposegmented Neuts Not Reportable 08/26/19 07:40 Hypogranular Neuts Not Reportable 08/26/19 07:40 Smudge Cells Not Reportable 08/26/19 07:40 Toxic Granulation Not Reportable 08/26/19 07:40 Toxic Vacuolation Not Reportable 08/26/19 07:40 Dohle Bodies Not Reportable 08/26/19 07:40 Pel[place]-Huet Anomaly Not Reportable 08/26/19 07:40 Shola Rods Not Reportable 08/26/19 07:40 Platelet Estimate Not Reportable 08/26/19 07:40 Clumped Platelets Not Reportable 08/26/19 07:40 Plt Clumps, EDTA Not Reportable 08/26/19 07:40 Large Platelets Not Reportable 08/26/19 07:40 Giant Platelets Not Reportable 08/26/19 07:40 Platelet Satelliting Not Reportable 08/26/19 07:40 Plt Morphology Comment Not Reportable 08/26/19 07:40 RBC Morphology Not Reportable 08/26/19 07:40 Dimorphic RBCs Not Reportable 08/26/19 07:40 Polychromasia Not Reportable 08/26/19 07:40 Hypochromasia 2+ 08/26/19 07:40 Poikilocytosis Not Reportable 08/26/19 07:40 Anisocytosis 2+ 08/26/19 07:40 Microcytosis Not Reportable 08/26/19 07:40 Macrocytosis Not Reportable 08/26/19 07:40 Spherocytes Not Reportable 08/26/19 07:40 Pappenheimer Bodies Not Reportable 08/26/19 07:40 Sickle Cells Not Reportable 08/26/19 07:40 Target Cells Few 08/26/19 07:40 Tear Drop Cells Not Reportable 08/26/19 07:40 Ovalocytes Not Reportable 08/26/19 07:40 Helmet Cells Not Reportable 08/26/19 07:40 [place] Bodies Not Reportable 08/26/19 07:40 [place] Rings Not Reportable 08/26/19 07:40 [place] Cells Not Reportable 08/26/19 07:40 Bite Cells Not Reportable 08/26/19 07:40 Crenated Cell Not Reportable 08/26/19 07:40 Elliptocytes Not Reportable 08/26/19 07:40 Acanthocytes (Spur) Not Reportable 08/26/19 07:40 Rouleaux Not Reportable 08/26/19 07:40 Hemoglobin C Crystals Not Reportable 08/26/19 07:40 Schistocytes Not Reportable 08/26/19 07:40 Malaria parasites Not Reportable 08/26/19 07:40 Wero Bodies Not Reportable 08/26/19 07:40 Hem Pathologist Commnt C 08/26/19 07:40 PT 16.0 Sec. (12.2-14.9) H 08/26/19 23:50 INR 1.27 (0.87-1.13) H 08/26/19 23:50 APTT 37.2 Sec. (24.2-36.6) H 08/26/19 23:50 Sodium 131 mmol/L (137-145) L 08/29/19 08:04 Potassium 5.6 mmol/L (3.6-5.0) H D 08/29/19 08:04 Chloride 94.5 mmol/L (98-107) L 08/29/19 08:04 Carbon Dioxide 23 mmol/L (22-30) 08/29/19 08:04 Anion Gap 19 mmol/L 08/29/19 08:04 BUN 38 mg/dL (9-20) H 08/29/19 08:04 Creatinine 4.7 mg/dL (0.8-1.5) H 08/29/19 08:04 Estimated GFR 15 ml/min 08/29/19 08:04 BUN/Creatinine Ratio 8 % 08/29/19 08:04 Glucose 181 mg/dL (75-100) H 08/29/19 08:04 POC Glucose 102 (70-105) 08/30/19 21:31 Hemoglobin A1c 5.1 % (4-6) 08/25/19 13:46 Calcium 7.7 mg/dL (8.4-10.2) L 08/29/19 08:04 Magnesium 1.90 mg/dL (1.7-2.3) 08/28/19 04:52 Total Bilirubin 0.30 mg/dL (0.1-1.2) 08/28/19 04:52 AST 16 units/L (5-40) 08/28/19 04:52 ALT 14 units/L (7-56) 08/28/19 04:52 Alkaline Phosphatase 128 units/L (35-129) 08/28/19 04:52 Lactate Dehydrogenase 186 units/L (91-180) H 08/29/19 08:04 Total Protein 7.2 g/dL (6.3-8.2) 08/28/19 04:52 Albumin 3.1 g/dL (3.9-5) L 08/28/19 04:52 Albumin/Globulin Ratio 0.8 % 08/28/19 04:52 Fluid Type Ascitic 08/25/19 Unknown Fluid Color Yellow 08/25/19 Unknown Fluid Appearance Hazy 08/25/19 Unknown Fluid WBC 196 /mm3 08/25/19 Unknown Fluid RBC 99 /mm3 08/25/19 Unknown Fluid Seg Neutrophils 2.0 % 08/25/19 Unknown Fluid Lymphocytes 17.0 % 08/25/19 Unknown Fluid Reactive Lymphs 0 % 08/25/19 Unknown Fluid Monocytes 71.0 % 08/25/19 Unknown Fluid Eosinophils 10.0 % 08/25/19 Unknown Fluid Basophils 0 % 08/25/19 Unknown Coronavirus (PCR) Positive (Negative) A 08/27/19 09:07 [place]/IV: Voiding Method Bedpan IV Catheter Type [Right Wrist] INT / Saline Lock IV Catheter Type [Right INT / Saline Lock Forearm] IV Catheter Type [Left Upper AV fistula arm] Active Medications - Current Medications Current Medications: Generic Name Dose Route Start Last Admin Trade Name Freq PRN Reason Stop Dose Admin Acetaminophen 650 mg 08/25/19 22:14 08/30/19 21:21 Tylenol PO 650 mg Q4H PRN Administration Pain MILD(1-3)/Fever >100.5/GARCIA Albumin Human 25 gm 08/29/19 22:00 08/30/19 21:34 Alburx 25% (Albumin) IV 25 gm Q8H ROBB Administration Aspirin 81 mg 08/27/19 10:00 08/30/19 09:44 Halfprin Ec PO 81 mg QDAY ROBB Administration Atorvastatin Calcium 40 mg 08/26/19 10:00 08/30/19 09:43 Lipitor PO 40 mg DAILY ROBB Administration Bisacodyl 10 mg 08/25/19 22:11 08/28/19 09:25 Dulcolax PO 10 mg DAILY PRN Administration Constipation Cinacalcet 30 mg 08/26/19 10:00 08/30/19 21:18 Sensipar PO 30 mg BID ROBB Administration Clopidogrel Bisulfate 75 mg 08/27/19 10:00 08/30/19 09:45 Plavix PO 75 mg QDAY ROBB Administration Epoetin Francisco 10,000 unit 08/26/19 19:29 08/27/19 13:30 Procrit IV 10,000 unit SHY PRN Administration hemodialysis Fluconazole 200 mg 08/26/19 22:00 08/30/19 09:46 Diflucan PO 200 mg QDAY ROBB Administration Gabapentin 300 mg 08/27/19 22:00 08/30/19 21:17 Gabapentin PO 300 mg QHS ROBB Administration Hydromorphone HCl 0.5 mg 08/25/19 22:14 08/26/19 22:02 Dilaudid IV 0.5 mg Q3H PRN Administration Pain , Severe (7-10) Sodium Chloride 100 mls @ 999 mls/hr 08/26/19 19:29 Nacl 0.9% IV SHY PRN Hypotension Insulin Human Lispro 0 unit 08/26/19 07:30 08/30/19 21:23 Humalog SUB-Q Not Given ACHS ROBB Protocol Latanoprost 1 drops 08/26/19 22:00 08/30/19 21:42 Latanoprost 0.005% OU 1 drops QHS ROBB Administration Metoclopramide HCl 5 mg 08/25/19 22:14 Reglan IV Q6H PRN Nausea And Vomiting Midodrine 10 mg 08/28/19 12:00 08/30/19 17:12 Proamatine PO 10 mg TID@0800,1200,1600 ROBB Administration Ondansetron HCl 4 mg 08/25/19 22:14 Zofran IV Q8H PRN Nausea And Vomiting Oxycodone/Acetaminophen 1 tab 08/25/19 22:14 08/30/19 17:51 Percocet 5/325 PO 1 tab Q6H PRN Administration Pain, Moderate (4-6) Pantoprazole Sodium 20 mg 08/26/19 10:00 08/30/19 09:45 Protonix PO 20 mg QAM ROBB Administration Sevelamer Carbonate 800 mg 08/25/19 23:00 08/30/19 17:12 Renvela PO 800 mg BID@0800,1700 ROBB Administration Sodium Chloride 10 ml 08/25/19 23:00 08/30/19 21:19 Sodium Chloride Flush Syringe 10 Ml IV 10 ml BID ROBB Administration Sodium Chloride 10 ml 08/25/19 22:14 Sodium Chloride Flush Syringe 10 Ml IV PRN PRN LINE FLUSH Tamsulosin HCl 0.4 mg 08/25/19 23:00 08/30/19 21:17 Flomax PO 0.4 mg BID ROBB Administration Temazepam 30 mg 08/30/19 22:00 08/30/19 21:18 Restoril PO 30 mg HS ROBB Administration Triamcinolone Acetonide 1 applic 08/26/19 08:00 08/30/19 21:19 Kenalog TP 1 applic TID ROBB Administration
--- NOTE | 2019-08-30 22:23 | Progress Note ---
Assessment and Plan Imp: 1. Covid-19 2. Small R pleural effusion 3. Ascites 4. Hypotension 5. ESRD Rec: 1. Cont. Midodrine 2. Monitor closely; stable [id number] Plan of care reviewed with patient, he understands/agrees Subjective Date of service: 08/30/19 Principal diagnosis: Covid-19, Hypotension Interval history: BP better. Off Vasopressin. No complaints. Active Medications Acetaminophen (Tylenol) 650 mg PO Q4H PRN PRN Reason: Pain MILD(1-3)/Fever >100.5/GARCIA Last Admin: 08/30/19 21:21 Dose: 650 mg Documented by: Albumin Human (Alburx 25% (Albumin)) 25 gm IV Q8H [facility] Last Admin: 08/30/19 21:34 Dose: 25 gm Documented by: Aspirin (Halfprin Ec) 81 mg PO QDAY [facility] Last Admin: 08/30/19 09:44 Dose: 81 mg Documented by: Atorvastatin Calcium (Lipitor) 40 mg PO DAILY [facility] Last Admin: 08/30/19 09:43 Dose: 40 mg Documented by: Bisacodyl (Dulcolax) 10 mg PO DAILY PRN PRN Reason: Constipation Last Admin: 08/28/19 09:25 Dose: 10 mg Documented by: Cinacalcet (Sensipar) 30 mg PO BID [facility] Last Admin: 08/30/19 21:18 Dose: 30 mg Documented by: Clopidogrel Bisulfate (Plavix) 75 mg PO QDAY [facility] Last Admin: 08/30/19 09:45 Dose: 75 mg Documented by: Epoetin [place] (Procrit) 10,000 unit IV SHY PRN PRN Reason: hemodialysis Last Admin: 08/27/19 13:30 Dose: 10,000 unit Documented by: Fluconazole (Diflucan) 200 mg PO QDAY [facility] Last Admin: 08/30/19 09:46 Dose: 200 mg Documented by: Gabapentin (Gabapentin) 300 mg PO QHS [facility] Last Admin: 08/30/19 21:17 Dose: 300 mg Documented by: Hydromorphone HCl (Dilaudid) 0.5 mg IV Q3H PRN PRN Reason: Pain , Severe (7-10) Last Admin: 08/26/19 22:02 Dose: 0.5 mg Documented by: Sodium Chloride (Nacl 0.9%) 100 mls @ 999 mls/hr IV SHY PRN PRN Reason: Hypotension Insulin Human Lispro (Humalog) 0 unit SUB-Q ACHS [facility]; Protocol Last Admin: 08/30/19 21:23 Dose: Not Given Documented by: Latanoprost (Latanoprost 0.005%) 1 drops OU QHS [facility] Last Admin: 08/30/19 21:42 Dose: 1 drops Documented by: Metoclopramide HCl (Reglan) 5 mg IV Q6H PRN PRN Reason: Nausea And Vomiting Midodrine (Proamatine) 10 mg PO TID@0800,1200,1600 [facility] Last Admin: 08/30/19 17:12 Dose: 10 mg Documented by: Ondansetron HCl (Zofran) 4 mg IV Q8H PRN PRN Reason: Nausea And Vomiting Oxycodone/Acetaminophen (Percocet 5/325) 1 tab PO Q6H PRN PRN Reason: Pain, Moderate (4-6) Last Admin: 08/30/19 17:51 Dose: 1 tab Documented by: Pantoprazole Sodium (Protonix) 20 mg PO QAM [facility] Last Admin: 08/30/19 09:45 Dose: 20 mg Documented by: Sevelamer Carbonate (Renvela) 800 mg PO BID@0800,1700 [facility] Last Admin: 08/30/19 17:12 Dose: 800 mg Documented by: Sodium Chloride (Sodium Chloride Flush Syringe 10 Ml) 10 ml IV BID [facility] Last Admin: 08/30/19 21:19 Dose: 10 ml Documented by: Sodium Chloride (Sodium Chloride Flush Syringe 10 Ml) 10 ml IV PRN PRN PRN Reason: LINE FLUSH Tamsulosin HCl (Flomax) 0.4 mg PO BID [facility] Last Admin: 08/30/19 21:17 Dose: 0.4 mg Documented by: Temazepam (Restoril) 30 mg PO HS [facility] Last Admin: 08/30/19 21:18 Dose: 30 mg Documented by: Triamcinolone Acetonide (Kenalog) 1 applic TP TID [facility] Last Admin: 08/30/19 21:19 Dose: 1 applic Documented by: Objective Vital Signs - 12hr 08/30/19 08/30/19 08/30/19 11:15 11:21 11:30 Temperature 97.9 F Pulse Rate 68 72 77 Pulse Rate [ From Monitor] Respiratory 18 Rate Blood Pressure 97/56 108/64 89/50 Blood Pressure [Right] O2 Sat by Pulse Oximetry 08/30/19 08/30/19 08/30/19 11:45 12:00 12:15 Temperature Pulse Rate 65 71 78 Pulse Rate [ From Monitor] Respiratory Rate Blood Pressure 110/55 90/56 100/62 Blood Pressure [Right] O2 Sat by Pulse Oximetry 08/30/19 08/30/19 08/30/19 12:30 12:45 13:00 Temperature Pulse Rate 78 79 78 Pulse Rate [ From Monitor] Respiratory Rate Blood Pressure 107/48 101/60 112/57 Blood Pressure [Right] O2 Sat by Pulse Oximetry 08/30/19 08/30/19 08/30/19 13:15 13:30 13:45 Temperature Pulse Rate 82 81 83 Pulse Rate [ From Monitor] Respiratory Rate Blood Pressure 101/55 99/47 102/49 Blood Pressure [Right] O2 Sat by Pulse Oximetry 08/30/19 08/30/19 08/30/19 14:00 14:15 14:30 Temperature Pulse Rate 83 83 83 Pulse Rate [ From Monitor] Respiratory Rate Blood Pressure 107/52 100/47 107/48 Blood Pressure [Right] O2 Sat by Pulse Oximetry 08/30/19 08/30/19 08/30/19 14:51 15:00 16:41 Temperature 97.5 F L 98.6 F Pulse Rate 84 83 80 Pulse Rate [ From Monitor] Respiratory 18 19 Rate Blood Pressure 106/49 105/53 87/56 Blood Pressure [Right] O2 Sat by Pulse 100 Oximetry 08/30/19 08/30/19 08/30/19 20:00 21:20 22:09 Temperature 98.8 F 98.8 F Pulse Rate 91 H Pulse Rate [ 75 From Monitor] Respiratory 17 16 16 Rate Blood Pressure 111/61 Blood Pressure 111/61 [Right] O2 Sat by Pulse 97 97 Oximetry Constitutional: no acute distress, alert Eyes: non-icteric ENT: oropharynx moist Neck: supple Effort: normal Ascultation: Bilateral: clear Cardiovascular: regular rate and rhythm (no mrg) Gastrointestinal: normoactive bowel sounds, soft, non-tender, non-distended Integumentary: normal Extremities: no cyanosis, other (s/p bilateral BKA) Neurologic: normal mental status, non-focal exam, pupils equal and round Psychiatric: mood appropriate, affect normal CBC and BMP: 08/27/19 04:37 08/29/19 08:04 ABG, PT/INR, D-dimer: PT/INR, D-dimer PT 16.0 Sec. (12.2-14.9) H 08/26/19 23:50 INR 1.27 (0.87-1.13) H 08/26/19 23:50 Abnormal lab findings: Abnormal Labs 08/25/19 08/25/19 08/25/19 13:46 13:46 13:46 WBC RBC 3.24 L Hgb 8.7 L Hct 27.1 L MCV MCH 27 L RDW 24.2 H Lymph % (Auto) 12.3 L [place] % (Auto) 15.1 H Lymph # 0.6 L Seg Neuts % (Manual) Lymphocytes # (Manual) PT 15.9 H INR 1.26 H APTT 38.8 H Sodium 135 L Potassium Chloride 93.7 L BUN 26 H Creatinine 3.5 H Glucose 125 H POC Glucose Calcium Alkaline Phosphatase 169 H Lactate Dehydrogenase Albumin 3.2 L Coronavirus (PCR) 08/26/19 08/26/19 08/26/19 07:40 07:40 08:18 WBC 4.2 L RBC 3.00 L Hgb 7.9 L Hct 24.8 L MCV 83 L MCH 26 L RDW 24.1 H Lymph % (Auto) [place] % (Auto) Lymph # Seg Neuts % (Manual) 75.0 H Lymphocytes # (Manual) 0.7 L PT INR APTT Sodium 133 L Potassium Chloride 95.4 L BUN 32 H Creatinine 4.3 H Glucose 117 H POC Glucose 138 H Calcium Alkaline Phosphatase 146 H Lactate Dehydrogenase Albumin 2.8 L Coronavirus (PCR) 08/26/19 08/26/19 08/26/19 13:44 16:43 23:50 WBC RBC Hgb Hct MCV MCH RDW Lymph % (Auto) [place] % (Auto) Lymph # Seg Neuts % (Manual) Lymphocytes # (Manual) PT 16.0 H INR 1.27 H APTT 37.2 H Sodium Potassium Chloride BUN Creatinine Glucose POC Glucose 132 H 177 H Calcium Alkaline Phosphatase Lactate Dehydrogenase Albumin Coronavirus (PCR) 08/27/19 08/27/19 08/27/19 00:13 04:37 04:37 WBC RBC 3.44 L Hgb 9.3 L Hct 28.6 L MCV 83 L MCH 27 L RDW 24.2 H Lymph % (Auto) 11.6 L [place] % (Auto) 14.3 H Lymph # 0.5 L Seg Neuts % (Manual) Lymphocytes # (Manual) PT INR APTT Sodium 134 L Potassium Chloride 93.6 L BUN 39 H Creatinine 4.7 H Glucose 118 H POC Glucose 169 H Calcium Alkaline Phosphatase Lactate Dehydrogenase Albumin Coronavirus (PCR) 08/27/19 08/27/19 08/27/19 05:59 09:07 11:42 WBC RBC Hgb Hct MCV MCH RDW Lymph % (Auto) [place] % (Auto) Lymph # Seg Neuts % (Manual) Lymphocytes # (Manual) PT INR APTT Sodium Potassium Chloride BUN Creatinine Glucose POC Glucose 186 H 197 H Calcium Alkaline Phosphatase Lactate Dehydrogenase Albumin Coronavirus (PCR) Positive A 08/27/19 08/28/19 08/28/19 18:00 04:52 08:17 WBC RBC Hgb Hct MCV MCH RDW Lymph % (Auto) [place] % (Auto) Lymph # Seg Neuts % (Manual) Lymphocytes # (Manual) PT INR APTT Sodium 135 L Potassium Chloride 94.7 L BUN 27 H Creatinine 3.5 H Glucose 148 H POC Glucose 144 H 211 H Calcium 7.9 L Alkaline Phosphatase Lactate Dehydrogenase Albumin 3.1 L Coronavirus (PCR) 08/28/19 08/28/19 08/28/19 11:45 17:11 22:00 WBC RBC Hgb Hct MCV MCH RDW Lymph % (Auto) [place] % (Auto) Lymph # Seg Neuts % (Manual) Lymphocytes # (Manual) PT INR APTT Sodium Potassium Chloride BUN Creatinine Glucose POC Glucose 158 H 144 H 152 H Calcium Alkaline Phosphatase Lactate Dehydrogenase Albumin Coronavirus (PCR) 08/29/19 08/29/19 08/29/19 07:46 08:04 12:03 WBC RBC Hgb Hct MCV MCH RDW Lymph % (Auto) [place] % (Auto) Lymph # Seg Neuts % (Manual) Lymphocytes # (Manual) PT INR APTT Sodium 131 L Potassium 5.6 H D Chloride 94.5 L BUN 38 H Creatinine 4.7 H Glucose 181 H POC Glucose 206 H 117 H Calcium 7.7 L Alkaline Phosphatase Lactate Dehydrogenase 186 H Albumin Coronavirus (PCR) 08/29/19 08/29/19 08/30/19 17:01 21:08 09:06 WBC RBC Hgb Hct MCV MCH RDW Lymph % (Auto) [place] % (Auto) Lymph # Seg Neuts % (Manual) Lymphocytes # (Manual) PT INR APTT Sodium Potassium Chloride BUN Creatinine Glucose POC Glucose 126 H 157 H 129 H Calcium Alkaline Phosphatase Lactate Dehydrogenase Albumin Coronavirus (PCR) 08/30/19 08/30/19 11:22 16:52 WBC RBC Hgb Hct MCV MCH RDW Lymph % (Auto) [place] % (Auto) Lymph # Seg Neuts % (Manual) Lymphocytes # (Manual) PT INR APTT Sodium Potassium Chloride BUN Creatinine Glucose POC Glucose 144 H 297 H Calcium Alkaline Phosphatase Lactate Dehydrogenase Albumin Coronavirus (PCR) Chest x-ray: report reviewed, image reviewed Allied health notes reviewed: nursing
[2019-08-31] MEDS: HYDROmorphone 1 MG/1 ML INJ IV PRN (00:18)
[2019-08-31] MEDS ORDERED: SODIUM CHLORIDE 0.9% 250ML 250 ML IV ONE (04:43)
[2019-08-31] MEDS: ALBUMIN HUMAN 25% (12.5 GM/50 ML) INJ IV SCH (05:52)
[2019-08-31] MEDS: ACETAMINOPHEN 325 MG TAB PO PRN ×3 (05:54→21:09)
[2019-08-31] MEDS: INSULIN LISPRO 100 UNIT/ML SUB-Q SCH ×4 (08:13→22:17)
[2019-08-31 08:40] LABS: Hematocrit 24.9 % (35.5-45.6); Hemoglobin 7.9 gm/dl (11.8-15.2)
[2019-08-31] MEDS: MIDODRINE 5 MG TAB PO SCH ×3 (08:58→16:28)
[2019-08-31] MEDS: TRIAMCINOLONE 0.1% CREAM 15 GM TP SCH ×3 (08:58→21:10)
[2019-08-31] MEDS: SEVELAMER CARBONATE 800 MG TAB PO SCH ×2 (08:58→16:28)
[2019-08-31] MEDS: CLOPIDOGREL 75 MG TAB PO SCH (08:59)
[2019-08-31] MEDS: CINACALCET 30 MG TAB PO SCH ×2 (08:59→21:09)
[2019-08-31] MEDS: TAMSULOSIN 0.4 MG CAP PO SCH ×2 (08:59→21:09)
[2019-08-31] MEDS: ASPIRIN EC 81 MG TAB PO SCH (08:59)
[2019-08-31] MEDS: PANTOPRAZOLE 20 MG TAB PO SCH (08:59)
[2019-08-31] MEDS: FLUCONAZOLE 200 MG TAB PO SCH (09:01)
--- NOTE | 2019-08-31 10:12 | Progress Note ---
Assessment and Plan 74 y/o COVID positive patient with massive ascities, s/p paracentesis large volume now with hypotension, but normal mental status. 1. COntinue midodrine therapy. 2. Needs abdominal ultrasound to evaluate liver 3. Stopped albumin therapy 4. Will sign off. Subjective Date of service: 08/31/19 Principal diagnosis: Covid-19, Hypotension Interval history: Stable on COVID floor Objective - Constitutional Vitals: Vital Signs - 12hr 08/31/19 08/31/19 00:00 04:34 Temperature 103.0 F H Pulse Rate 104 H 114 H Respiratory 20 Rate Blood Pressure 103/51 O2 Sat by Pulse 100 Oximetry - Labs CBC & Chem 7: 08/31/19 08:01 08/29/19 08:04 Labs: Abnormal lab results 08/30/19 08/30/19 08/31/19 Range/Units 11:22 16:52 08:01 Hgb 7.9 L (11.8-15.2) gm/dl Hct 24.9 L (35.5-45.6) % POC Glucose 144 H 297 H (70-105) Medications & Allergies - Medications Allergies/Adverse Reactions: Allergies No Known Allergies Allergy (Verified 11/06/17 12:21) Home Medications: Home Medications Medication Instructions Recorded Confirmed Last Taken Type Aspirin EC [Halfprin EC] 81 mg PO QDAY 11/06/17 08/25/19 02/21/18 History AtorvaSTATin [Lipitor] 40 mg PO DAILY 11/06/17 08/25/19 02/21/18 History Gabapentin 300 mg PO TID 11/06/17 08/25/19 02/21/18 History Metoprolol [Lopressor TAB] 25 mg PO DAILY MDD BLOOD PRESSURE 11/06/17 08/25/19 02/21/18 History cloNIDine [Catapres] 0.1 mg PO DAILY 11/06/17 08/25/19 02/21/18 History Cinacalcet [Sensipar] 30 mg PO BID 02/21/18 08/25/19 02/21/18 History Furosemide [Lasix TAB] 80 mg PO BID 02/21/18 08/25/19 02/21/18 History Tamsulosin HCl [Flomax] 0.4 mg PO BID 02/21/18 08/25/19 02/21/18 History Temazepam [Restoril] 30 mg PO DAILY 02/21/18 08/25/19 02/21/18 History Triamcinolone 0.1% [Kenalog 0.1% 1 applic TP TID 02/21/18 08/25/19 02/21/18 History CREAM] Dorzolamide HCl/Timolol Maleat 1 drop OP DAILY 07/16/18 08/25/19 Unknown History [Cosopt Eye Drops] Clopidogrel [Plavix] 75 mg PO QDAY tablet 12/08/18 08/25/19 Unknown Rx Amlactin Foot Cream 1 unit TP PRN PRN 08/25/19 08/25/19 Unknown History Fluconazole [Diflucan TAB] 200 mg PO QDAY 08/25/19 08/25/19 Unknown History Ipratropium/Albuterol Sulfate 4 gm IH PRN PRN 08/25/19 08/25/19 Unknown History [Combivent Respimat Inhal [place]] Lispro Insulin [HumaLOG] See Protocol SQ AC 08/25/19 08/25/19 Unknown History Nitroglycerin [Nitrostat] 1 tab SUBLINGUAL PRN PRN 08/25/19 08/25/19 Unknown History Omeprazole 20 mg PO DAILY 08/25/19 08/25/19 Unknown History Sacubitril/Valsartan [Entresto 24 1 each PO BID 08/25/19 08/25/19 Unknown History - 26 mg] Sevelamer Carbonate [Renvela] 800 mg PO BIDWM 08/25/19 08/25/19 Unknown History Simbrinza 1%-0.2% Eye Drops 1 drop OP DAILY 08/25/19 08/25/19 Unknown History Tamsulosin [Flomax] 1 cap PO BID 08/25/19 08/25/19 Unknown History Travoprost 2.5 ml OP DAILY 08/25/19 08/25/19 Unknown History bisacodyL [Dulcolax] 10 mg PO DAILY PRN 08/25/19 08/25/19 Unknown History oxyCODONE /ACETAMINOPHEN [Percocet 1 tab PO Q4HR PRN 08/25/19 08/25/19 Unknown History 5/325] Active Medications: Generic Name Dose Route Start Last Admin Trade Name Freq PRN Reason Stop Dose Admin Acetaminophen 650 mg 08/25/19 22:14 08/31/19 05:54 Tylenol PO 650 mg Q4H PRN Administration Pain MILD(1-3)/Fever >100.5/GARCIA Aspirin 81 mg 08/27/19 10:00 08/31/19 08:59 Halfprin Ec PO 81 mg QDAY ROBB Administration Atorvastatin Calcium 40 mg 08/26/19 10:00 08/31/19 08:59 Lipitor PO 40 mg DAILY ROBB Administration Bisacodyl 10 mg 08/25/19 22:11 08/28/19 09:25 Dulcolax PO 10 mg DAILY PRN Administration Constipation Cinacalcet 30 mg 08/26/19 10:00 08/31/19 08:59 Sensipar PO 30 mg BID ROBB Administration Clopidogrel Bisulfate 75 mg 08/27/19 10:00 08/31/19 08:59 Plavix PO 75 mg QDAY ROBB Administration Epoetin [place] 10,000 unit 08/26/19 19:29 08/27/19 13:30 Procrit IV 10,000 unit SHY PRN Administration hemodialysis Fluconazole 200 mg 08/26/19 22:00 08/31/19 09:01 Diflucan PO 200 mg QDAY ROBB Administration Gabapentin 300 mg 08/27/19 22:00 08/30/19 21:17 Gabapentin PO 300 mg QHS ROBB Administration Hydromorphone HCl 0.5 mg 08/25/19 22:14 08/31/19 00:18 Dilaudid IV 0.5 mg Q3H PRN Administration Pain , Severe (7-10) Sodium Chloride 100 mls @ 999 mls/hr 08/26/19 19:29 Nacl 0.9% IV SHY PRN Hypotension Insulin Human Lispro 0 unit 08/26/19 07:30 08/31/19 08:13 Humalog SUB-Q Not Given ACHS [facility] Protocol Latanoprost 1 drops 08/26/19 22:00 08/30/19 21:42 Latanoprost 0.005% OU 1 drops QHS ROBB Administration Metoclopramide HCl 5 mg 08/25/19 22:14 Reglan IV Q6H PRN Nausea And Vomiting Midodrine 10 mg 08/28/19 12:00 08/31/19 08:58 Proamatine PO 10 mg TID@0800,1200,1600 ROBB Administration Ondansetron HCl 4 mg 08/25/19 22:14 Zofran IV Q8H PRN Nausea And Vomiting Oxycodone/Acetaminophen 1 tab 08/25/19 22:14 08/30/19 17:51 Percocet 5/325 PO 1 tab Q6H PRN Administration Pain, Moderate (4-6) Pantoprazole Sodium 20 mg 08/26/19 10:00 08/31/19 08:59 Protonix PO 20 mg QAM ROBB Administration Sevelamer Carbonate 800 mg 08/25/19 23:00 08/31/19 08:58 Renvela PO 800 mg BID@0800,1700 ROBB Administration Sodium Chloride 10 ml 08/25/19 23:00 08/31/19 09:00 Sodium Chloride Flush Syringe 10 Ml IV 10 ml BID ROBB Administration Sodium Chloride 10 ml 08/25/19 22:14 Sodium Chloride Flush Syringe 10 Ml IV PRN PRN LINE FLUSH Tamsulosin HCl 0.4 mg 08/25/19 23:00 08/31/19 08:59 Flomax PO 0.4 mg BID ROBB Administration Temazepam 30 mg 08/30/19 22:00 08/30/19 21:18 Restoril PO 30 mg HS ROBB Administration Triamcinolone Acetonide 1 applic 08/26/19 08:00 08/31/19 08:58 Kenalog TP 1 applic TID ROBB Administration
--- NOTE | 2019-08-31 11:06 | Progress Note ---
Assessment and Plan - Patient Problems (1) ESRD (end stage renal disease) on dialysis Current Visit: No Status: Chronic Plan to address problem: Maintain on inpatient MWF HD schedule. Assess daily for needs of sequential UF treatments. No acute HD needs today. (2) Ascites Current Visit: No Status: Acute Plan to address problem: S/P paracentesis with removal of >7L. Need to arrange for outpatient paracentesis every 2-4 weeks as clinically necessary. (3) COVID-19 virus detected Current Visit: Yes Status: Chronic Plan to address problem: Continues on appropriate droplet precautions. Patient spiked another fever overnight. (4) Hypotension Current Visit: Yes Status: Acute Plan to address problem: Weaned off vasopressin. Midodrine maintained at 10 mg TID. (5) Anemia in chronic kidney disease (CKD) Current Visit: Yes Status: Acute Qualifiers: Chronic kidney disease stage: on chronic dialysis Qualified Code(s): N18.6 - End stage renal disease; D63.1 - Anemia in chronic kidney disease; Z99.2 - Dependence on renal dialysis Plan to address problem: TEENA with HD therapy. Subjective Date of service: 08/31/19 Principal diagnosis: Covid-19, Hypotension Interval history: Patient seen this am, issues with bleeding from femoral triple lumen, pressure dressing applied, no active bleeding noted. Slight decrease in H/H noted. Hemodynamically stable this am, off all pressors. Tolerated HD without any issues yesterday. Objective - Vital Signs Vital signs: Vital Signs - 12hr 08/31/19 08/31/19 00:00 04:34 Temperature 103.0 F H Pulse Rate 104 H 114 H Respiratory 20 Rate Blood Pressure 103/51 O2 Sat by Pulse 100 Oximetry - General Appearance General appearance: well-developed, appears stated age, chronically ill EENT: ATNC Neck: no JVD Respiratory: Present: Clear to Ascultation Cardiology: regular, S1S2 Gastrointestinal: normal, normoactive bowel sounds Integumentary: no rash Neurologic: no focal deficit Musculoskeletal: deferred Psychiatric: cooperative - Lab 08/31/19 08:01 08/29/19 08:04 Most recent lab results Calcium 7.7 mg/dL (8.4-10.2) L 08/29/19 08:04 Magnesium 1.90 mg/dL (1.7-2.3) 08/28/19 04:52 - Allied health notes Allied health notes reviewed: nursing Medications & Allergies - Medications Allergies/Adverse Reactions: Allergies No Known Allergies Allergy (Verified 11/06/17 12:21) Home Medications: Home Medications Medication Instructions Recorded Confirmed Last Taken Type Aspirin EC [Halfprin EC] 81 mg PO QDAY 11/06/17 08/25/19 02/21/18 History AtorvaSTATin [Lipitor] 40 mg PO DAILY 11/06/17 08/25/19 02/21/18 History Gabapentin 300 mg PO TID 11/06/17 08/25/19 02/21/18 History Metoprolol [Lopressor TAB] 25 mg PO DAILY MDD BLOOD PRESSURE 11/06/17 08/25/19 02/21/18 History cloNIDine [Catapres] 0.1 mg PO DAILY 11/06/17 08/25/19 02/21/18 History Cinacalcet [Sensipar] 30 mg PO BID 02/21/18 08/25/19 02/21/18 History Furosemide [Lasix TAB] 80 mg PO BID 02/21/18 08/25/19 02/21/18 History Tamsulosin HCl [Flomax] 0.4 mg PO BID 02/21/18 08/25/19 02/21/18 History Temazepam [Restoril] 30 mg PO DAILY 02/21/18 08/25/19 02/21/18 History Triamcinolone 0.1% [Kenalog 0.1% 1 applic TP TID 02/21/18 08/25/19 02/21/18 History CREAM] Dorzolamide HCl/Timolol Maleat 1 drop OP DAILY 07/16/18 08/25/19 Unknown History [Cosopt Eye Drops] Clopidogrel [Plavix] 75 mg PO QDAY tablet 12/08/18 08/25/19 Unknown Rx Amlactin Foot Cream 1 unit TP PRN PRN 08/25/19 08/25/19 Unknown History Fluconazole [Diflucan TAB] 200 mg PO QDAY 08/25/19 08/25/19 Unknown History Ipratropium/Albuterol Sulfate 4 gm IH PRN PRN 08/25/19 08/25/19 Unknown History [Combivent Respimat Inhal [place]] Lispro Insulin [HumaLOG] See Protocol SQ AC 08/25/19 08/25/19 Unknown History Nitroglycerin [Nitrostat] 1 tab SUBLINGUAL PRN PRN 08/25/19 08/25/19 Unknown History Omeprazole 20 mg PO DAILY 08/25/19 08/25/19 Unknown History Sacubitril/Valsartan [Entresto 24 1 each PO BID 08/25/19 08/25/19 Unknown Histor y - 26 mg] Sevelamer Carbonate [Renvela] 800 mg PO BIDWM 08/25/19 08/25/19 Unknown History Simbrinza 1%-0.2% Eye Drops 1 drop OP DAILY 08/25/19 08/25/19 Unknown History Tamsulosin [Flomax] 1 cap PO BID 08/25/19 08/25/19 Unknown History Travoprost 2.5 ml OP DAILY 08/25/19 08/25/19 Unknown History bisacodyL [Dulcolax] 10 mg PO DAILY PRN 08/25/19 08/25/19 Unknown History oxyCODONE /ACETAMINOPHEN [Percocet 1 tab PO Q4HR PRN 08/25/19 08/25/19 Unknown History 5/325] Active Medications: Generic Name Dose Route Start Last Admin Trade Name Freq PRN Reason Stop Dose Admin Acetaminophen 650 mg 08/25/19 22:14 08/31/19 05:54 Tylenol PO 650 mg Q4H PRN Administration Pain MILD(1-3)/Fever >100.5/GARCIA Aspirin 81 mg 08/27/19 10:00 08/31/19 08:59 Halfprin Ec PO 81 mg QDAY ROBB Administration Atorvastatin Calcium 40 mg 08/26/19 10:00 08/31/19 08:59 Lipitor PO 40 mg DAILY ROBB Administration Bisacodyl 10 mg 08/25/19 22:11 08/28/19 09:25 Dulcolax PO 10 mg DAILY PRN Administration Constipation Cinacalcet 30 mg 08/26/19 10:00 08/31/19 08:59 Sensipar PO 30 mg BID ROBB Administration Clopidogrel Bisulfate 75 mg 08/27/19 10:00 08/31/19 08:59 Plavix PO 75 mg QDAY ROBB Administration Epoetin [place] 10,000 unit 08/26/19 19:29 08/27/19 13:30 Procrit IV 10,000 unit SHY PRN Administration hemodialysis Fluconazole 200 mg 08/26/19 22:00 08/31/19 09:01 Diflucan PO 200 mg QDAY ROBB Administration Gabapentin 300 mg 08/27/19 22:00 08/30/19 21:17 Gabapentin PO 300 mg QHS ROBB Administration Hydromorphone HCl 0.5 mg 08/25/19 22:14 08/31/19 00:18 Dilaudid IV 0.5 mg Q3H PRN Administration Pain , Severe (7-10) Sodium Chloride 100 mls @ 999 mls/hr 08/26/19 19:29 Nacl 0.9% IV SHY PRN Hypotension Insulin Human Lispro 0 unit 08/26/19 07:30 08/31/19 08:13 Humalog SUB-Q Not Given ACHS [facility] Protocol Latanoprost 1 drops 08/26/19 22:00 08/30/19 21:42 Latanoprost 0.005% OU 1 drops QHS ROBB Administration Metoclopramide HCl 5 mg 08/25/19 22:14 Reglan IV Q6H PRN Nausea And Vomiting Midodrine 10 mg 08/28/19 12:00 08/31/19 08:58 Proamatine PO 10 mg TID@0800,1200,1600 ROBB Administration Ondansetron HCl 4 mg 08/25/19 22:14 Zofran IV Q8H PRN Nausea And Vomiting Oxycodone/Acetaminophen 1 tab 08/25/19 22:14 08/30/19 17:51 Percocet 5/325 PO 1 tab Q6H PRN Administration Pain, Moderate (4-6) Pantoprazole Sodium 20 mg 08/26/19 10:00 08/31/19 08:59 Protonix PO 20 mg QAM ROBB Administration Sevelamer Carbonate 800 mg 08/25/19 23:00 08/31/19 08:58 Renvela PO 800 mg BID@0800,1700 ROBB Administration Sodium Chloride 10 ml 08/25/19 23:00 08/31/19 09:00 Sodium Chloride Flush Syringe 10 Ml IV 10 ml BID ROBB Administration Sodium Chloride 10 ml 08/25/19 22:14 Sodium Chloride Flush Syringe 10 Ml IV PRN PRN LINE FLUSH Tamsulosin HCl 0.4 mg 08/25/19 23:00 08/31/19 08:59 Flomax PO 0.4 mg BID ROBB Administration Temazepam 30 mg 08/30/19 22:00 08/30/19 21:18 Restoril PO 30 mg HS ROBB Administration Triamcinolone Acetonide 1 applic 08/26/19 08:00 08/31/19 08:58 Kenalog TP 1 applic TID ROBB Administration
[2019-08-31 14:39] LABS: INR 1.58 (0.87-1.13)
[2019-08-31 14:57] LABS: Calcium 7.8 mg/dL (8.4-10.2)
[2019-08-31] MEDS ORDERED: ALBUMIN HUMAN 25% (25 GM/100 ML) INJ IV PRN (16:16)
--- NOTE | 2019-08-31 16:16 | Procedure Note ---
Date of procedure: 08/31/19 Pre-op diagnosis: Ascites Post-op diagnosis: same Procedure: US guided paracentesis Findings: See report in PACS Anesthesia: local Surgeon: BALTAZAR ROMERO Estimated blood loss: none Pathology: none Specimen disposition: other (Approximately 50mL of fluid was reserved.) Condition: stable Disposition: no change
--- NOTE | 2019-08-31 16:33 | Ultrasound Report ---
Ultrasound-guided paracentesis HISTORY: severe ascitis with respiratory distress. Covid positive patient PROCEDURE: The risks (including but not limited to bleeding, infection, and bowel injury) and benefi ts were explained to the patient and informed consent was obtained. A time out procedure was perform ed. Ultrasound was used to evaluate the abdomen and locate the largest ascites fluid pocket. Once the sk in was marked, the procedure site was prepped and draped in the usual sterile fashion and lidocaine w as used for local anesthesia. A skin blayne was made and a 6-Malaysian paracentesis catheter was placed. The patient was monitored closely throughout the procedure, and a total of 6800 mL of straw-colored fluid was aspirated. 50 mL of fluid was reserved for the lab in case sampling was ordered by the [facility] team. The patient tolerated the procedure well with no complications. IMPRESSION: Successful paracentesis as above with a total of 6800 mL of straw-colored fluid aspirated . Signer Name: David Weaver MD Signed: 08/31/2019 4:28 PM Workstation Name: [id number]
--- NOTE | 2019-08-31 16:35 | Progress Note ---
Assessment and Plan /Respiratory failure, hypoxic - due to volume overload, cont HD, paracentesis - wean off O2 as needed /COVID positive patient Contact and droplet isolation, PPE protocol /Hyperkalemia; s/p calcium chloride, Kayexalate Closely monitor potassium levels, cont HD /Hypotension/shock: Required vasopressors off vasopressin, continue Midodrin Supportive care /Severe hypoalbuminemia; due to receiving IV albumin as needed after paracentesis Slight improvement in albumin level /Massive ascites; s/p large-volume abdominal paracentesis 08/26/2019 with removal of 7.7 L peritoneal fluid Follow fluid analysis, fluid restriction, Lasix ordered repeat paracentesis today /End-stage renal disease; on hemodialysis HD per schedule, nephrology consulted /Chronic systolic congestive heart failure; EF 25-30% Continue heart failure medications, HD for volume control /Type 2 diabetes mellitus/upper glycemia HbA1c 5.1, Accu-Chek sliding scale coverage /Peripheral neuropathy; on gabapentin /h/o [place] BKA: Supportive care /History of BPH; continue tamsulosin DVT prophylaxis; SCD, heparin renal dose Monitor closely and adjust management as needed Disposition; Discharge when medically stable, back to SNF. Plan of care reviewed with the patient and his nurse/CM 08/30: resumed care. sig abdominal distension. ordered for repeat paracentesis today. Brief history : 74-year-old -[place] male patient with significant history of hypertension CVA coronary artery disease end-stage renal disease on hemodialysis recently diagnosed positive COVID 19 infection long term resident, was admitted through emergency room with worsening shortness of breath and worsening abdominal distention with ascites, admitted for large volume paracentesis. Underwent ultrasound-guided paracentesis and removal of 7.7 L of peritoneal fluid. Patient then became hypotensive, required vasopressors -transferred to icu. Nephrology evaluated the patient, on hemodialysis per schedule, now off vasopressors. But Patient having worsening abdominal distention, with shortness of breath requiring more O2, ordered for paracentesis again today. Physical exam: General appearance: Present: mild distress, well-nourished - EENT Eyes: Present: PERRL, EOM intact - Neck Neck: Present: supple, normal ROM - Respiratory Respiratory effort: normal Respiratory: bilateral: diminished, rales, negative: rhonchi, wheezing - Cardiovascular Rhythm: regular Heart Sounds: Present: S1 & S2 - Extremities Extremities: no ischemia Extremity abnormal: edema - Abdominal General gastrointestinal: soft, non-tender, hugely distended, + bowel sounds, other (Worsening ascites) - Integumentary Integumentary: Present: clear, warm - Psychiatric Psychiatric: appropriate mood/affect, cooperative - Neurologic Neurologic: moves all extremities Subjective Date of service: 08/31/19 Principal diagnosis: Covid-19, Hypotension Interval history: Patient seen and examined. Medical records and medication list reviewed. Patient continued to have worsening difficulty breathing and distended abdomen. He also complains of abdominal pain Discussed plan of care at bedside with patient's RN. Objective - Constitutional Vitals: Vital Signs - 12hr 08/31/19 08/31/19 08/31/19 11:39 16:26 16:27 Temperature 97.1 F L 103 F H Pulse Rate 101 H 107 H Respiratory 18 20 Rate Blood Pressure 111/46 104/51 O2 Sat by Pulse 100 Oximetry - Labs CBC & Chem 7: 09/01/19 08:09 09/01/19 08:09 Labs: Abnormal lab results 08/30/19 08/31/19 08/31/19 Range/Units 16:52 08:01 11:53 Hgb 7.9 L (11.8-15.2) gm/dl Hct 24.9 L (35.5-45.6) % PT (12.2-14.9) Sec. INR (0.87-1.13) Sodium (137-145) mmol/L Chloride (98-107) mmol/L BUN (9-20) mg/dL Creatinine (0.8-1.5) mg/dL Glucose (75-100) mg/dL POC Glucose 297 H 177 H (70-105) Calcium (8.4-10.2) mg/dL 08/31/19 08/31/19 Range/Units 13:55 13:55 Hgb (11.8-15.2) gm/dl Hct (35.5-45.6) % PT 18.5 H (12.2-14.9) Sec. INR 1.58 H (0.87-1.13) Sodium 134 L (137-145) mmol/L Chloride 94.2 L (98-107) mmol/L BUN 41 H (9-20) mg/dL Creatinine 4.4 H (0.8-1.5) mg/dL Glucose 136 H (75-100) mg/dL POC Glucose (70-105) Calcium 7.8 L (8.4-10.2) mg/dL
[2019-08-31] MEDS: LATANOPROST 0.005% OPHTH SOLN 2.5 ML OU SCH (21:08)
[2019-08-31] MEDS: GABAPENTIN 300 MG CAP PO SCH (21:09)
[2019-08-31] MEDS: TEMAZEPAM 15 MG CAP PO SCH (21:09)
[2019-09-01] MEDS: ACETAMINOPHEN 325 MG TAB PO PRN (05:26)
[2019-09-01 08:03] LABS: Amylase,Body Fluid 96; LDH,Body Fluid 105; Total Protein,Body Fluid 4.9 (15.0-45.0)
[2019-09-01 08:31] LABS: Hematocrit 23.8 % (35.5-45.6); Hemoglobin 7.6 gm/dl (11.8-15.2); Mean Corpuscular HGB Conc 32 % (32-34); Mean Corpuscular Volume 85 fl (84-94); Platelet Count 168 K/mm3 (140-440); Red Blood Count 2.81 M/mm3 (3.65-5.03)
[2019-09-01 08:33] LABS: Red Cell Distribution Width 23.6 % (13.2-15.2)
[2019-09-01 08:49] LABS: Calcium 7.9 mg/dL (8.4-10.2)
[2019-09-01] MEDS ORDERED: ONDANSETRON 4 MG/2 ML INJ ONE (09:59)
[2019-09-01] MEDS: INSULIN LISPRO 100 UNIT/ML SUB-Q SCH ×2 (10:26→14:20)
[2019-09-01] MEDS: TRIAMCINOLONE 0.1% CREAM 15 GM TP SCH ×2 (10:26→15:50)
[2019-09-01] MEDS: SEVELAMER CARBONATE 800 MG TAB PO SCH (10:27)
[2019-09-01] MEDS: MIDODRINE 5 MG TAB PO SCH ×2 (10:27→15:49)
[2019-09-01] MEDS: PANTOPRAZOLE 20 MG TAB PO SCH (10:37)
--- NOTE | 2019-09-01 13:10 | Progress Note ---
Assessment and Plan - Patient Problems (1) ESRD (end stage renal disease) on dialysis Current Visit: No Status: Chronic Plan to address problem: Maintain on inpatient MWF HD schedule. Assess daily for needs of sequential UF treatments. Receiving HD today at bedside From renal standpoint patient is stable for discharge. (2) Ascites Current Visit: No Status: Acute Plan to address problem: S/P paracentesis with removal of >6L yesterday. Need to arrange for outpatient paracentesis every 2-4 weeks as clinically necessary. (3) COVID-19 virus detected Current Visit: Yes Status: Chronic Plan to address problem: Continues on appropriate droplet precautions. (4) Hypotension Current Visit: Yes Status: Acute Plan to address problem: Weaned off vasopressin. Midodrine maintained at 10 mg TID. (5) Anemia in chronic kidney disease (CKD) Current Visit: Yes Status: Acute Qualifiers: Qualified Code(s): N18.6 - End stage renal disease; D63.1 - Anemia in chronic kidney disease; Z99.2 - Dependence on renal dialysis Plan to address problem: TEENA with HD therapy. Subjective Date of service: 09/01/19 Principal diagnosis: Covid-19, Hypotension Interval history: Patient is being dialyzed at bedside, pending discharge today after dialysis per nursing staff. No acute issues overnight, tolerated removal of >6L fluid with paracentesis. Objective - Vital Signs Vital signs: Vital Signs - 12hr 09/01/19 09/01/19 09/01/19 01:53 01:55 04:00 Temperature Pulse Rate 106 H 104 H Respiratory Rate Blood Pressure 109/46 Blood Pressure 102/43 [Right] O2 Sat by Pulse Oximetry 09/01/19 09/01/19 09/01/19 05:00 05:31 09:53 Temperature 101 F H Pulse Rate 104 H 99 H Respiratory 16 Rate Blood Pressure 92/42 Blood Pressure 113/48 [Right] O2 Sat by Pulse 100 100 Oximetry 09/01/19 10:25 Temperature 99.1 F Pulse Rate Respiratory Rate Blood Pressure Blood Pressure [Right] O2 Sat by Pulse Oximetry - General Appearance General appearance: appears stated age, chronically ill EENT: ATNC Neck: no JVD Respiratory: Present: Clear to Ascultation Cardiology: regular Gastrointestinal: normal Neurologic: no focal deficit Psychiatric: cooperative - Lab 09/01/19 08:09 09/01/19 08:09 Most recent lab results Calcium 7.9 mg/dL (8.4-10.2) L 09/01/19 08:09 Magnesium 1.90 mg/dL (1.7-2.3) 08/28/19 04:52 - Allied health notes Allied health notes reviewed: nursing Medications & Allergies - Medications Allergies/Adverse Reactions: Allergies No Known Allergies Allergy (Verified 11/06/17 12:21) Home Medications: Home Medications Medication Instructions Recorded Confirmed Last Taken Type Aspirin EC [Halfprin EC] 81 mg PO QDAY 11/06/17 08/25/19 02/21/18 History AtorvaSTATin [Lipitor] 40 mg PO DAILY 11/06/17 08/25/19 02/21/18 History Gabapentin 300 mg PO TID 11/06/17 08/25/19 02/21/18 History Cinacalcet [Sensipar] 30 mg PO BID 02/21/18 08/25/19 02/21/18 History Furosemide [Lasix TAB] 80 mg PO BID 02/21/18 08/25/19 02/21/18 History Tamsulosin HCl [Flomax] 0.4 mg PO BID 02/21/18 08/25/19 02/21/18 History Temazepam [Restoril] 30 mg PO DAILY 02/21/18 08/25/19 02/21/18 History Triamcinolone 0.1% [Kenalog 0.1% 1 applic TP TID 02/21/18 08/25/19 02/21/18 History CREAM] Dorzolamide HCl/Timolol Maleat 1 drop OP DAILY 07/16/18 08/25/19 Unknown History [Cosopt Eye Drops] Clopidogrel [Plavix] 75 mg PO QDAY tablet 12/08/18 08/25/19 Unknown Rx Amlactin Foot Cream 1 unit TP PRN PRN 08/25/19 08/25/19 Unknown History Fluconazole [Diflucan TAB] 200 mg PO QDAY 08/25/19 08/25/19 Unknown History Ipratropium/Albuterol Sulfate 4 gm IH PRN PRN 08/25/19 08/25/19 Unknown History [Combivent Respimat] Lispro Insulin [HumaLOG] See Protocol SQ AC 08/25/19 08/25/19 Unknown History Nitroglycerin [Nitrostat] 1 tab SUBLINGUAL PRN PRN 08/25/19 08/25/19 Unknown History Omeprazole 20 mg PO DAILY 08/25/19 08/25/19 Unknown History Sevelamer Carbonate [Renvela] 800 mg PO BIDWM 08/25/19 08/25/19 Unknown History Simbrinza 1%-0.2% Eye Drops 1 drop OP DAILY 08/25/19 08/25/19 Unknown History Tamsulosin [Flomax] 1 cap PO BID 08/25/19 08/25/19 Unknown History Travoprost 2.5 ml OP DAILY 08/25/19 08/25/19 Unknown History bisacodyL [Dulcolax tab] 10 mg PO DAILY PRN 08/25/19 08/25/19 Unknown History oxyCODONE /ACETAMINOPHEN [Percocet 1 tab PO Q4HR PRN 08/25/19 08/25/19 Unknown History 5/325 mg] Active Medications: Generic Name Dose Route Start Last Admin Trade Name Freq PRN Reason Stop Dose Admin Acetaminophen 650 mg 08/25/19 22:14 09/01/19 05:26 Tylenol PO 650 mg Q4H PRN Administration Pain MILD(1-3)/Fever >100.5/GARCIA Albumin Human 25 gm 08/31/19 16:16 08/31/19 18:41 Alburx 25% (Albumin) IV 25 gm ONCE PRN Administration if > 5 liters of fluid removed Aspirin 81 mg 08/27/19 10:00 08/31/19 08:59 Halfprin Ec PO 81 mg QDAY ROBB Administration Atorvastatin Calcium 40 mg 08/26/19 10:00 08/31/19 08:59 Lipitor PO 40 mg DAILY ROBB Administration Bisacodyl 10 mg 08/25/19 22:11 08/28/19 09:25 Dulcolax PO 10 mg DAILY PRN Administration Constipation Cinacalcet 30 mg 08/26/19 10:00 08/31/19 21:09 Sensipar PO 30 mg BID ROBB Administration Epoetin Francisco 10,000 unit 08/26/19 19:29 08/27/19 13:30 Procrit IV 10,000 unit SHY PRN Administration hemodialysis Fluconazole 200 mg 08/26/19 22:00 08/31/19 09:01 Diflucan PO 200 mg QDAY ROBB Administration Gabapentin 300 mg 08/27/19 22:00 08/31/19 21:09 Gabapentin PO 300 mg QHS ROBB Administration Hydromorphone HCl 0.5 mg 08/25/19 22:14 08/31/19 00:18 Dilaudid IV 0.5 mg Q3H PRN Administration Pain , Severe (7-10) Sodium Chloride 100 mls @ 999 mls/hr 08/26/19 19:29 Nacl 0.9% IV SHY PRN Hypotension Insulin Human Lispro 0 unit 08/26/19 07:30 09/01/19 10:26 Humalog SUB-Q Not Given ACHS [facility] Protocol Latanoprost 1 drops 08/26/19 22:00 08/31/19 21:08 Latanoprost 0.005% OU 1 drops QHS ROBB Administration Metoclopramide HCl 5 mg 08/25/19 22:14 Reglan IV Q6H PRN Nausea And Vomiting Midodrine 10 mg 08/28/19 12:00 09/01/19 10:27 Proamatine PO 10 mg TID@0800,1200,1600 ROBB Administration Ondansetron HCl 4 mg 08/25/19 22:14 Zofran IV Q8H PRN Nausea And Vomiting Oxycodone/Acetaminophen 1 tab 08/25/19 22:14 08/30/19 17:51 Percocet 5/325 PO 1 tab Q6H PRN Administration Pain, Moderate (4-6) Pantoprazole Sodium 20 mg 08/26/19 10:00 09/01/19 10:37 Protonix PO 20 mg QAM ROBB Administration Sevelamer Carbonate 800 mg 08/25/19 23:00 09/01/19 10:27 Renvela PO 800 mg BID@0800,1700 ROBB Administration Sodium Chloride 10 ml 08/25/19 23:00 09/01/19 10:38 Sodium Chloride Flush Syringe 10 Ml IV 10 ml BID ROBB Administration Sodium Chloride 10 ml 08/25/19 22:14 Sodium Chloride Flush Syringe 10 Ml IV PRN PRN LINE FLUSH Tamsulosin HCl 0.4 mg 08/25/19 23:00 08/31/19 21:09 Flomax PO 0.4 mg BID ROBB Administration Temazepam 30 mg 08/30/19 22:00 08/31/19 21:09 Restoril PO 30 mg HS ROBB Administration Triamcinolone Acetonide 1 applic 08/26/19 08:00 09/01/19 10:26 Kenalog TP Not Given TID ROBB
[2019-09-01 14:05] VITALS: BP 111/49
--- NOTE | 2019-09-01 14:39 | Discharge Summary ---
Providers - Providers Date of Admission: 08/27/19 08:08 Date of discharge: 09/01/19 Attending physician: TOPHER ARANGO 08/26/19 07:29 Consult to Physician [CONS] Routine Comment: Consulting Provider: XU JOVEL Physician Instructions: Reason For Exam: ESRD Primary care physician: MOLD BUNCH TRIMMER Hospitalization Condition: Stable Pertinent studies: CXR: Stable small right pleural effusion and right basilar atelectasis. Ultrasound-guided paracentesis x2 Hospital course: 74-year-old -[place] male patient with significant history of hypertension CVA coronary artery disease end-stage renal disease on hemodialysis recently diagnosed positive COVID 19 infection skilled nursing resident, was adm itted through emergency room with worsening shortness of breath and worsening abdominal distention with ascites, admitted for large volume paracentesis. Underwent ultrasound-guided paracentesis and removal of 7.7 L of peritoneal fluid. Patient then became hypotensive, required vasopressors -transferred to icu. Nephrology evaluated the patient, on hemodialysis per schedule, now off vasopressors. But Patient again developed worsening abdominal distention, with shortness of breath requiring more O2 required repeat paracentesis drained 6.8L peritoneal fluid. His symptom then improved and was then discharged back to SNF in stable condition. Discharge diagnosis and Mx: /Respiratory failure, hypoxic - due to volume overload, cont HD, paracentesis as needed - wean off O2 as needed /COVID positive patient Placed on Contact and droplet isolation, PPE protocol /Hyperkalemia; s/p calcium chloride, Kayexalate Closely monitor potassium levels, cont HD /Hypotension/shock: Required vasopressors off vasopressin, continue Midodrin Supportive care /Severe hypoalbuminemia; received IV albumin as needed after paracentesis /Massive ascites; s/p large-volume abdominal paracentesis 08/26/2019 with removal of 7.7 L peritoneal fluid S/p repeat paracentesis 08/31/19 drained 6.8L peritoneal fluid cont fluid restriction, Lasix need outpt repeat paracentesis every two weeks /End-stage renal disease; on hemodialysis HD per schedule, nephrology consulted /Chronic systolic congestive heart failure; EF 25-30% on 08/20 2d echo Continue heart failure medications, HD for volume control /Type 2 diabetes mellitus/upper glycemia HbA1c 5.1, Accu-Chek sliding scale coverage /Peripheral neuropathy; on gabapentin /h/o Cameron BKA: Supportive care /History of BPH; continue tamsulosin DVT prophylaxis; SCD, heparin renal dose Monitor closely and adjust management as needed Disposition; Discharge back to SNF. Plan of care reviewed with the patient and his nurse/CM Physical exam: General appearance: Present: mild distress, well-nourished - EENT Eyes: Present: PERRL, EOM intact - Neck Neck: Present: supple, normal ROM - Respiratory Respiratory effort: normal Respiratory: bilateral: diminished, rales, negative: rhonchi, wheezing - Cardiovascular Rhythm: regular Heart Sounds: Present: S1 & S2 - Extremities Extremities: no ischemia Extremity abnormal: edema - Abdominal General gastrointestinal: soft, non-tender, hugely distended, + bowel sounds, other (Worsening ascites) - Integumentary Integumentary: Present: clear, warm - Psychiatric Psychiatric: appropriate mood/affect, cooperative - Neurologic Neurologic: moves all extremities Disposition: DC/[place]-03 SNF W TATI CERT Time spent for discharge: 34 minutes Core Measure Documentation - Palliative Care Palliative Care/ Comfort Measures: Not Applicable - Core Measures Any of the following diagnoses?: history only Exam - Constitutional Vitals: Temp Pulse Resp BP Pulse Ox 98.6 F 89 20 111/49 100 09/01/19 12:00 09/01/19 12:00 09/01/19 12:00 09/01/19 12:00 09/01/19 12:00 Plan Activity: fall precautions Weight Bearing Status: Non-Weight Bearing Diet: diabetic, renal Special Instructions: restrict fluid intake to (1L per day), record daily weights, record blood sugar diary, physical therapy, occupational therapy Durable Medical Equipment Needed Upon Discharge: Oxygen Additional Instructions: Need outpt paracentesis every 2 weeks or as needed for ascites Follow up with: PRIMARY MD JORDANA [Primary Care Provider] - 3-5 Days
[2019-09-01] MEDS: FLUCONAZOLE 200 MG TAB PO SCH (15:49)
[2019-09-01] MEDS: CINACALCET 30 MG TAB PO SCH (15:49)
== END 2019-09-01 16:45 | DRG 177 ==
LOC: ED 11:26 → IMCU 15:09 → OBSVTOIN 08-27 08:08 → CC1 08-27 08:48 → IMCU 08-29 19:44
PROVIDERS: ADMIT Internal Medicine; ATTEND Internal Medicine
PROC: 0W9G3ZZ Drainage of Peritoneal Cavity, Percutaneous Approach (ICD-10-PCS; 2019-08-26)
PROC: 5A1D70Z Performance of Urinary Filtration, Intermittent, Less than 6 Hours Per Day (ICD-10-PCS; principal; 2019-08-27)
PROC: 06HY33Z Insertion of Infusion Device into Lower Vein, Percutaneous Approach (ICD-10-PCS; 2019-08-27)
PROC: 5A1D70Z Performance of Urinary Filtration, Intermittent, Less than 6 Hours Per Day (ICD-10-PCS; 2019-08-30)
PROC: 0W9G3ZZ Drainage of Peritoneal Cavity, Percutaneous Approach (ICD-10-PCS; 2019-08-31)
PROC: 5A1D70Z Performance of Urinary Filtration, Intermittent, Less than 6 Hours Per Day (ICD-10-PCS; 2019-09-01)
DX: U07.1 COVID-19 (principal); N18.6 End stage renal disease; J12.89 Other viral pneumonia; R57.1 Hypovolemic shock; J96.01 Acute respiratory failure with hypoxia; R18.8 Other ascites; I13.2 Hypertensive heart and chronic kidney disease with heart failure and with stage 5 chronic kidney disease, or end stage renal disease; I50.22 Chronic systolic (congestive) heart failure; J90 Pleural effusion, not elsewhere classified; I50.9 Heart failure, unspecified; E11.22 Type 2 diabetes mellitus with diabetic chronic kidney disease; J44.9 Chronic obstructive pulmonary disease, unspecified; M19.90 Unspecified osteoarthritis, unspecified site; N40.0 Benign prostatic hyperplasia without lower urinary tract symptoms; E11.42 Type 2 diabetes mellitus with diabetic polyneuropathy; E11.65 Type 2 diabetes mellitus with hyperglycemia; I25.10 Atherosclerotic heart disease of native coronary artery without angina pectoris; E78.5 Hyperlipidemia, unspecified; I95.9 Hypotension, unspecified; E87.5 Hyperkalemia; D63.1 Anemia in chronic kidney disease; E87.70 Fluid overload, unspecified; I25.2 Old myocardial infarction; Z99.2 Dependence on renal dialysis; Z95.5 Presence of coronary angioplasty implant and graft; Z89.512 Acquired absence of left leg below knee; Z89.511 Acquired absence of right leg below knee; Z86.73 Personal history of transient ischemic attack (TIA), and cerebral infarction without residual deficits; Z82.49 Family history of ischemic heart disease and other diseases of the circulatory system; Z83.3 Family history of diabetes mellitus; Z80.0 Family history of malignant neoplasm of digestive organs; Z79.4 Long term (current) use of insulin
CPT/HCPCS: 36415; 49083; 71045; 80048; 80053; 82150; 82947; 82962; 83036; 83605; 83615; 83735; 84160; 85007; 85014; 85018; 85025; 85027; 85610; 85730; 86850; 86900; 86901; 89051; G0378; A9270-GY; J0885; J1170; J1815; J2405; J7040; J7050; P9047; U0003-CS